=== PATIENT | female | born 1940 | race Caucasian/White ===

== ENCOUNTER 2018-05-21 14:36 | Emergency (ER) | payer OTHER ==
[2018-05-21 15:23] LABS: Urine Blood NEGATIVE (NEG); Urine Glucose NEGATIVE (NEG); Urine Protein NEGATIVE (NEG); Urine Specific Gravity 1.015 (1.005-1.030)
[2018-05-21] MEDS ORDERED: NA CHLORIDE 0.9% 500 ML ONE (15:38)
[2018-05-21 15:54] LABS: Absolute Lymphocytes (CBC) 0.8 K/uL (0.7-4.9); Absolute Monocytes 0.6 K/uL (0.1-1.3); Absolute Neutrophil 6.1 K/uL (1.8-8.0); Basophils % 0.4 % (0-1.3); Eosinophils % 0.9 % (0-4.4); MCV 85.1 fL (80-100); MPV 9.4 fL (7.6-11.3); Monocytes % 8.3 % (3.3-12.3); RBC Red Blood Cell Count 4.23 M/uL (3.86-4.86)
[2018-05-21 16:15] LABS: Albumin 4.2 g/dL (3.4-5.0); Bilirubin Direct 0.2 mg/dL (0-0.2); Bilirubin Total 0.4 mg/dL (0.2-1.0); Magnesium 2.2 mg/dL (1.8-2.4); Potassium 4.3 mmol/L (3.5-5.1); Protein, Total 7.5 g/dL (6.4-8.2)
--- NOTE | 2018-05-21 16:26 | EKG ---
Test Date: 2018-05-21 Test Time: 15:41:14 Stunner: JULIA MEASUREMENT RESULTS: Intervals: Rate: 65 MO: QRSD: 112 QT: 436 QTc: 453 [place]: P: MO: QRS: -8 T: 54 INTERPRETIVE STATEMENTS: Atrial fibrillation Anteroseptal infarct, age undetermined Abnormal ECG Compared to ECG 12/31/2016 14:19:22 Prolonged QT interval no longer present Myocardial infarct finding still present Electronically Signed On 05-21-18 16:25:44 CDT by Jackson Cuellar
--- NOTE | 2018-05-21 17:16 | RAD REPORT ---
EXAM DESCRIPTION: CT - Head Brain Wo Cont - 05/21/2018 5:04 pm CLINICAL HISTORY: DIZZINESS< COMPARISON: 2016 TECHNIQUE: Computed axial tomography of the head was obtained. IV contrast was not requested. All CT scans are performed using dose optimization technique as appropriate and may include automated exposure control or mA/KV adjustment according to patient size. FINDINGS: An intracranial bleed is not seen . The ventricles are normal in caliber. No extra-axial fluid collection is noted. Low-density areas within the right parietal and left frontal lobes may represent old infarctions. A 13 millimeter peripherally calcified right frontal scalp lesion is enlarged from the prior exam Fluid within the sinuses/ mastoids is not seen. IMPRESSION: 13 millimeter peripherally calcified right frontal lobe scalp lesion is enlarged from the prior exam No acute intracranial abnormality is seen. If patient's symptoms persist MRI of the brain would be r ecommended.
--- NOTE | 2018-05-21 17:22 | ER ---
Nurse's Notes [facility] Name: Lilian Avila Age: 77 yrs Sex: Female : 1940 Arrival Date: 05/21/2018 Time: 14:40 Bed 14 Private MD: Efra Dye F Diagnosis: Dehydration Presentation: 05/21 14:42 Presenting complaint: Patient states: Reports diarrhea every day for the past couple of aj1 months. States that her blood pressure has been low at home, but when she followed up with her doctor today it was better. Reports dizziness for the past 3 days. Denies pain. Transition of care: patient was not received from another setting of care. Onset of symptoms was May 18, 2018. Risk Assessment: Do you want to hurt yourself or someone else? Patient reports no desire to harm self or others. Initial Sepsis Screen: Does the patient meet any 2 criteria? No. Patient's initial sepsis screen is negative. Does the patient have a suspected source of infection? No. Patient's initial sepsis screen is negative. Care prior to arrival: None. 14:42 Method Of Arrival: Ambulatory aj1 14:42 Acuity: JARRETT 3 aj1 Triage Assessment: 14:48 General: Appears in no apparent distress. comfortable, Behavior is calm, cooperative, aj1 appropriate for age. Pain: Denies pain. Neuro: Level of Consciousness is awake, alert, obeys commands, Oriented to person, place, time, situation, Gait is steady, Speech is normal, Facial symmetry appears normal, Reports dizziness. Cardiovascular: Patient's skin is warm and dry. Respiratory: Airway is patent Respiratory effort is even, unlabored, Respiratory pattern is regular, symmetrical. GI: Reports diarrhea. Historical: - Allergies: 14:48 Codeine (Hallucinations/agitation); aj1 14:48 Morphine (Hallucinations/agitation); aj1 14:48 PENICILLINS (rash); aj1 - Home Meds: 14:48 amiodarone 200 mg Oral tab [Active]; atorvastatin 80 mg Oral tab [Active]; clopidogrel aj1 75 mg Oral tab 1 tab once daily [Active]; fluoxetine 20 mg Oral cap 1 cap [Active]; furosemide 40 mg Oral tab [Active]; gabapentin 300 mg Oral cap [Active]; Januvia 50 mg Oral tab [Active]; pantoprazole 40 mg Oral TbEC [Active]; primidone 50 mg Oral tab [Active]; spironolactone 50 mg Oral tab [Active]; Tylenol [Active]; - PMHx: 14:48 CHF; Hypertension; Diabetes - NIDDM; Myocardial infarction; aj1 - Immunization history:: Flu vaccine is up to date. - Social history:: Smoking status: Patient/guardian denies using tobacco. - Ebola Screening: : Patient denies travel to an Ebola-affected area in the 21 days before illness onset. Screenin:47 Abuse screen: Denies threats or abuse. Nutritional screening: No deficits noted. tw2 Tuberculosis screening: No symptoms or risk factors identified. Fall Risk None identified. Assessment: 14:53 General: Appears in no apparent distress. well groomed, Behavior is calm, cooperative, tw2 appropriate for age. Pain: Denies pain. Neuro: Level of Consciousness is awake, alert, obeys commands. Neuro: Oriented to person, place, time, situation. Cardiovascular: Denies chest pain, shortness of breath, Heart tones S1 S2 Patient's skin is warm and dry. Respiratory: Airway is patent Respiratory effort is even, unlabored, Respiratory pattern is regular, symmetrical, Breath sounds are clear bilaterally. GI: Abdomen is round non-distended, Bowel sounds present X 4 quads. Reports diarrhea. : No signs and/or symptoms were reported regarding the genitourinary system. EENT: No signs and/or symptoms were reported regarding the EENT system. Derm: No signs and/or symptoms reported regarding the dermatologic system. Skin is intact, is healthy with good turgor, Skin temperature is warm. Musculoskeletal: Range of motion: intact in all extremities. 15:45 Reassessment: Patient appears in no apparent distress at this time. No changes from tw2 previously documented assessment. Patient and/or family updated on plan of care and expected duration. Pain level reassessed. Patient is alert, oriented x 3, equal unlabored respirations, skin warm/dry/pink. 17:04 Reassessment: Patient appears in no apparent distress at this time. pt currently in CT. em 17:40 Reassessment: Patient appears in no apparent distress at this time. Patient and/or em family updated on plan of care and expected duration. Pain level reassessed. Patient is alert, oriented x 3, equal unlabored respirations, skin warm/dry/pink. Patient denies pain at this time. Patient states feeling better. Patient states symptoms have improved. Vital Signs: 14:48 BP 124 / 56; Pulse 72; Resp 20; Temp 98.0(O); Pulse Ox 97% on R/A; Weight 78.93 kg (R); aj1 Pain 0/10; 15:45 BP 100 / 48; Pulse 84; Resp 17; Pulse Ox 99% on R/A; tw2 16:18 BP 123 / 69 Supine; Pulse 77; Resp 17; Pulse Ox 99% on R/A; tw2 16:18 BP 109 / 61 Sitting; Pulse 68; tw2 16:18 BP 117 / 64 Standing; Pulse 99; tw2 17:15 BP 121 / 67; Pulse 71; Resp 16; Pulse Ox 99% on R/A; Pain 0/10; em 16:18 pt states "i just feel lightheaded when i stand", provider notified. tw2 ED Course: 14:40 Patient arrived in ED. sb2 14:40 Efra Dye MD is Private Physician. sb2 14:47 Triage completed. aj1 14:48 Arm band placed on. aj1 14:53 Bed in low position. Call light in reach. Side rails up X 1. Pulse ox on. NIBP on. tw2 14:57 Mishel Daley, AFUA is Primary Nurse. tw2 15:03 Arpan Esquivel PA is PHCP. jr8 15:03 Lee Briscoe MD is Attending Physician. jr8 15:44 Inserted saline lock: 20 gauge in right antecubital area, using aseptic technique. tw2 Blood collected. 16:03 EKG done, by word processor technician. reviewed by Arpan GEORGE. sm3 16:07 Report given to OBIE Lundy. tw2 17:[address] via wheelchair. nj 17:04 CT completed. Patient tolerated procedure well. Patient moved back from CT. nj 17:05 CT Head Brain wo Cont In Process Unspecified. EDMS 17:21 Efra Dey MD is Referral Physician. jr8 17:21 Justin Delgado MD is Referral Physician. jr8 17:48 No provider procedures requiring assistance completed. IV discontinued, intact, em bleeding controlled, No redness/swelling at site. Pressure dressing applied. Administered Medications: 15:44 Drug: NS 0.9% 500 ml Route: IV; Rate: bolus; Site: right antecubital; tw2 16:30 Follow up: IV Status: Completed infusion; IV Intake: 500ml em Intake: 16:30 IV: 500ml; Total: 500ml. em Outcome: 17:22 Discharge ordered by MD. steiner 17:48 Discharged to home ambulatory. em 17:48 Condition: good 17:48 Discharge instructions given to patient, Instructed on discharge instructions, follow up and referral plans. Demonstrated understanding of instructions, follow-up care. 17:50 Patient left the ED. em Signatures: Dispatcher [employer] Belen Bowen RN RN aj1 Kamron Barriga, COMPOSITION TILE LAYER COMPOSITION TILE LAYER em Arpan Esquivel PA PA jr8 Mishel Daley RN RN tw2 Harry Acevedo Sheri 2 Mariah Johns 3
--- NOTE | 2018-05-21 17:22 | EDPHYS ---
Physician Documentation [facility] Name: Lilian Avila Age: 77 yrs Sex: Female : 1940 Arrival Date: 05/21/2018 Time: 14:40 Bed 14 Private MD: Efra Dye F ED Physician Lee Briscoe HPI: 05/21 15:38 This 77 yrs old Female presents to ER via Ambulatory with complaints of jr8 Diarrhea. 15:38 Patient stated that she has been having diarrhea on/off for a couple of months. Stated jr8 that she had been in a hot house for the past few days while her AC was being worked on. Feels week and fatigued. Near syncope like feeling. Saw PCP today and referred her to ED for further evaluation . Severity of symptoms: At their worst the symptoms were moderate in the emergency department the symptoms are unchanged. The patient has not experienced similar symptoms in the past. The patient has been recently seen by a physician: the patient's primary care provider. Historical: - Allergies: 14:48 Codeine (Hallucinations/agitation); aj1 14:48 Morphine (Hallucinations/agitation); aj1 14:48 PENICILLINS (rash); aj1 - Home Meds: 14:48 amiodarone 200 mg Oral tab [Active]; atorvastatin 80 mg Oral tab [Active]; clopidogrel aj1 75 mg Oral tab 1 tab once daily [Active]; fluoxetine 20 mg Oral cap 1 cap [Active]; furosemide 40 mg Oral tab [Active]; gabapentin 300 mg Oral cap [Active]; Januvia 50 mg Oral tab [Active]; pantoprazole 40 mg Oral TbEC [Active]; primidone 50 mg Oral tab [Active]; spironolactone 50 mg Oral tab [Active]; Tylenol [Active]; - PMHx: 14:48 CHF; Hypertension; Diabetes - NIDDM; Myocardial infarction; aj1 - Immunization history:: Flu vaccine is up to date. - Social history:: Smoking status: Patient/guardian denies using tobacco. - Ebola Screening: : Patient denies travel to an Ebola-affected area in the 21 days before illness onset. ROS: 15:40 Eyes: Negative for injury, pain, redness, and discharge, ENT: Negative for injury, jr8 pain, and discharge, Neck: Negative for injury, pain, and swelling, Cardiovascular: Negative for chest pain, palpitations, and edema, Respiratory: Negative for shortness of breath, cough, wheezing, and pleuritic chest pain, Back: Negative for injury and pain, MS/Extremity: Negative for injury and deformity, Skin: Negative for injury, rash, and discoloration, Neuro: Negative for headache, weakness, numbness, tingling, and seizure. 15:40 Constitutional: Positive for fatigue, malaise. 15:40 Abdomen/GI: Positive for diarrhea, constipation, Negative for abdominal pain, nausea and vomiting, abdominal cramps, abdominal distension, anorexia, dysphagia, hematemesis, black/tarry stool, rectal pain, rectal bleeding, bowel incontinence, flatulence. Exam: 15:40 Eyes: Pupils equal round and reactive to light, extra-ocular motions intact. Lids and jr8 lashes normal. Conjunctiva and sclera are non-icteric and not injected. Cornea within normal limits. Periorbital areas with no swelling, redness, or edema. ENT: Nares patent. No nasal discharge, no septal abnormalities noted. Tympanic membranes are normal and external auditory canals are clear. Oropharynx with no redness, swelling, or masses, exudates, or evidence of obstruction, uvula midline. Mucous membranes moist. Neck: Trachea midline, no thyromegaly or masses palpated, and no cervical lymphadenopathy. Supple, full range of motion without nuchal rigidity, or vertebral point tenderness. No Meningismus. Cardiovascular: Regular rate and rhythm with a normal S1 and S2. No gallops, murmurs, or rubs. Normal PMI, no JVD. No pulse deficits. Respiratory: Lungs have equal breath sounds bilaterally, clear to auscultation and percussion. No rales, rhonchi or wheezes noted. No increased work of breathing, no retractions or nasal flaring. Abdomen/GI: Soft, non-tender, with normal bowel sounds. No distension or tympany. No guarding or rebound. No evidence of tenderness throughout. Back: No spinal tenderness. No costovertebral tenderness. Full range of motion. Skin: Warm, dry with normal turgor. Normal color with no rashes, no lesions, and no evidence of cellulitis. MS/ Extremity: Pulses equal, no cyanosis. Neurovascular intact. Full, normal range of motion. Neuro: Awake and alert, GCS 15, oriented to person, place, time, and situation. Cranial nerves II-XII grossly intact. Motor strength 5/5 in all extremities. Sensory grossly intact. Cerebellar exam normal. Normal gait. Vital Signs: 14:48 BP 124 / 56; Pulse 72; Resp 20; Temp 98.0(O); Pulse Ox 97% on R/A; Weight 78.93 kg (R); aj1 Pain 0/10; 15:45 BP 100 / 48; Pulse 84; Resp 17; Pulse Ox 99% on R/A; tw2 16:18 BP 123 / 69 Supine; Pulse 77; Resp 17; Pulse Ox 99% on R/A; tw2 16:18 BP 109 / 61 Sitting; Pulse 68; tw2 16:18 BP 117 / 64 Standing; Pulse 99; tw2 17:15 BP 121 / 67; Pulse 71; Resp 16; Pulse Ox 99% on R/A; Pain 0/10; em 16:18 pt states "i just feel lightheaded when i stand", provider notified. tw2 MDM: 15:06 Patient medically screened. [facility] 17:21 Data reviewed: vital signs, nurses notes, lab test result(s), EKG, radiologic studies, [facility] CT scan, plain films. Data interpreted: Pulse oximetry: on room air is 99 %. Interpretation: normal. 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 Response to treatment: the patient's symptoms have markedly improved after treatment. 05/21 15:12 Order name: Urine Dipstick--Ancillary (enter results); Complete Time: 15:35 05/21 15:23 Order name: Basic Metabolic Panel; Complete Time: 16:25 [facility] 05/21 15:23 Order name: CBC with Diff; Complete Time: 16:07 [facility] 05/21 15:23 Order name: Creatinine for Radiology; Complete Time: 16:12 [facility] 05/21 15:23 Order name: Hepatic Function; Complete Time: 16:25 [facility] 05/21 15:23 Order name: Magnesium; Complete Time: 16:25 05/21 15:23 Order name: IV Saline Lock; Complete Time: 15:44 05/21 15:23 Order name: Labs collected and sent; Complete Time: 15:44 05/21 15:23 Order name: Urine Dipstick-Ancillary (obtain specimen); Complete Time: 15:32 05/21 15:40 Order name: EKG - Nurse/Tech; Complete Time: 16:18 05/21 15:40 Order name: EKG; Complete Time: 15:40 05/21 15:41 Order name: Orthostatics; Complete Time: 16:18 05/21 16:46 Order name: CT Head Brain wo Cont; Complete Time: 17:20 Administered Medications: 15:44 Drug: NS 0.9% 500 ml Route: IV; Rate: bolus; Site: right antecubital; tw2 16:30 Follow up: IV Status: Completed infusion; IV Intake: 500ml em Disposition: 18:08 Co-signature as Attending Physician, Lee Briscoe MD. rn Disposition: 05/21/18 17:22 Discharged to Home. Impression: Dehydration. - Condition is Stable. - Discharge Instructions: Dehydration, Elderly. - Medication Reconciliation Form, Thank You Letter, Antibiotic Education, Prescription Opioid Use form. - Follow up: Efra Dye MD; When: 2 - 3 days; Reason: Recheck today's complaints, Continuance of care, Re-evaluation by your physician. Follow up: Justin Delgado MD; When: 2 - 3 days; Reason: Recheck today's complaints, Continuance of care, Re-evaluation by your physician. - Problem is new. - Symptoms have improved. Signatures: Dispatcher [employer] Belen Bowen RN RN aj1 Kamron Barriga, BASKET MACHINE OPERATOR BASKET MACHINE OPERATOR em Lee Briscoe MD MD rn Roszak, Josh, PA PA jr8 Mishel Daley RN RN tw2 Corrections: (The following items were deleted from the chart) 15:40 15:38 The patient has not recently seen a physician, obdulia jr8 17:50 17:22 05/21/2018 17:22 Discharged to Home. Impression: Dehydration. Condition is em Stable. Forms are Medication Reconciliation Form, Thank You Letter, Antibiotic Education, Prescription Opioid Use. Follow up: Efra Dye; When: 2 - 3 days; Reason: Recheck today's complaints, Continuance of care, Re-evaluation by your physician. Follow up: Justin Delgado; When: 2 - 3 days; Reason: Recheck today's complaints, Continuance of care, Re-evaluation by your physician. Problem is new. Symptoms have improved. jr8
[2018-05-21 17:54] VITALS: TEMP 98
[2018-05-21 17:55] VITALS: O2SAT 99
[2018-05-21 17:56] VITALS: BP 117/64
== END 2018-05-21 17:50 | disposition home or self-care (01) ==
LOC: ER 14:36
DX: E86.0 Dehydration (principal); I10 Essential (primary) hypertension; E11.9 Type 2 diabetes mellitus without complications; I50.9 Heart failure, unspecified; I25.2 Old myocardial infarction; Z88.0 Allergy status to penicillin; Z88.5 Allergy status to narcotic agent
CPT/HCPCS: 36415; 70450; 80048; 80076; 81003; 83735; 85025; 93005; 96360; 99284

== ENCOUNTER 2019-06-14 14:10 | Emergency (ER) | payer OTHER ==
--- OUTSIDE RECORDS SUMMARY | 2019-06-14 14:15 | XMS REPORT | Clinical Summary ---
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 Last Filed Vital Signs Not on file Plan of Treatment Health Maintenance Due Date Last Done Comments SHINGLES VACCINES (#1) 1988 65+ PNEUMOCOCCAL VACCINE (1 of 2 - PCV13) 2003 INFLUENZA VACCINE 04/22/2019 Procedures Procedure Name Priority Date/Time Associated Diagnosis Comments ECHOCARDIOGRAM 2D Routine 07/09/2018 12:06 Atrial fibrillation, Results for this COMPLETE W MMODE PM CDT unspecified type procedure are in SPECTRAL COLOR DOPPLER (HCC) the results (02349) Aortic valve section. 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 Stat.:OutpatientStudy Status:Final Echo Event ID:[id number] Order ID:[id number] Reason for Study:Aortic valve replacement History / Clinical:Coronary Artery Disease, Diabetes, Hypertension, Valvular Heart Disease; Aortic Stenosis Procedures:2D Echo, Colorflow Doppler Race:White SUMMARY: Surgical Prosthetic AV Doppler velocity index is 0.33 (normal>0.25). FINDINGS: LV: LV size is mildly enlarged. There is mild eccentric LV hypertrophy.LV EF is lower limits of normal. Estimated EF is50-54%. RV: RV size is normal. RV systolic function is normal. LA: LA volume is mildly enlarged. RA: RA size is normal. AO: Aortic root diameter is normal. CORTEZ: No pericardial effusion. AV: Prosthetic aortic valve. A trace of aortic regurgitation. Normalprosthetic valve velocity and gradient. Surgical ProstheticAV Doppler velocity index is 0.33 (normal> 0.25). MV: Mild thickening and calcification of mitral leaflets. Mild mitralregurgitation. PV: No structural PV abnormalities noted. A trace of pulmonic regurgitation. TV: No structural TV abnormalities noted. A trace of tricuspid regurgitation Brothers: LV relaxation is impaired. LV filling pressure is elevated. Other:Estimated PA systolic pressure is 30-35 mmHg, assuming a meanRAP of 5 mmHg. MEASUREMENTS: 2D Parasternal [place] LVOT 1.5 cmLA Ds 4.3 cm LVIDd5.8 cmIndex 3 cm/m Ao An1.4 cm LVIDs3.8 cmAo Rtd 2.5 cm Index1.3 cm/m LV%fs 34.4 % LV Mass 233.1 g(87-129) IVSd 1.2 cmLVM Index 122 g/m2 LVPWd0.8 cmRWT 0.3 LA Sng Plane LA Area 22.8 cm2(8.8-23.4) LA Vol68.2 ml Index35.7 ml/m LA LngAx 6.4 cm DOPPLER AV For Flow/Valve Assess AV pkVel 311.5 cm/s (100-170) AV ET340 msec AV mnVel 200.1 cm/Michael AC/ET 0.3 AV pkPG 38.8 mmHgAV TVI 68.1 cm AV Mean G 20.5 mmHgAVpkAcRt 5199.4 cm/s2 AV AC111 msec (83-118) WALL MOTION: RESTING WALL MOTION: Basal Inferoseptal, Basal Inferior, Basal Inferolateral, Basal Anterolateral zuniga are hypokinetic.Mid Inferoseptal, Mid Anterolateral zuniga are mildly hypokinetic. Normal in all other zuniga. Wall Index=1.3 Signed 07/10/2018 08:59 AM Alanna Negro M.D. Procedure Note Interface, Radiology Results In - 07/10/2018 9:00 AM CDT Echocardiography Report [address] [address], [place] [address] Pat.Name: NASIR AVILA.ID: [id number] .Date: 07/09/2018 Refer.MD: KEO LEUNG MD Exam Time: 11:42:00 AM Study Type:Routine Echo Height: 67in Weight: 174lb BSA: 1.91 m2 Age: 1 1940,77Y Sex: FEMALE BP: 126/65 HR: 71 bpm Sonogrphr: FARHAD Peraza Pat. Stat.:Outpatient Study Status:Final Echo Event ID:[id number] Order ID: [id number] Reason for Study:Aortic valve replacement History / Clinical:Coronary Artery Disease, Diabetes, Hypertension, Valvular Heart Disease; Aortic Stenosis Procedures:2D Echo, Colorflow Doppler Race: White SUMMARY: Surgical Prosthetic AV Doppler velocity index is 0.33 (normal>0.25). FINDINGS: LV: LV size is mildly enlarged. There is mild eccentric LV hypertrophy. LV EF is lower limits of normal. Estimated EF is 50-54%. RV: RV size is normal. RV systolic function is normal. LA: LA volume is mildly enlarged. RA: RA size is normal. AO: Aortic root diameter is normal. CORTEZ: No pericardial effusion. AV: Prosthetic aortic valve. A trace of aortic regurgitation. Normal prosthetic valve velocity and gradient. Surgical Prosthetic AV Doppler velocity index is 0.33 (normal>0.25). MV: Mild thickening and calcification of mitral leaflets. Mild mitral regurgitation. PV: No structural PV abnormalities noted. A trace of pulmonic regurgitation. TV: No structural TV abnormalities noted. A trace of tricuspid regurgitation Brothers: LV relaxation is impaired. LV filling pressure is elevated. Other: Estimated PA systolic pressure is 30-35 mmHg, assuming a mean RAP of 5 mmHg. MEASUREMENTS: 2D Parasternal [place] LVOT 1.5 cm LA Ds 4.3 cm LVIDd 5.8 cm Index 3 cm/m Ao An 1.4 cm LVIDs 3.8 cm Ao Rtd 2.5 cm Index 1.3 cm/m LV%fs 34.4 % LV Mass 233.1 g (87-129) IVSd 1.2 cm LVM Index 122 g/m2 LVPWd 0.8 cm RWT 0.3 LA Sng Plane LA Area 22.8 cm2 (8.8-23.4) LA Vol 68.2 ml Index 35.7 ml/m LA LngAx 6.4 cm DOPPLER AV For Flow/Valve Assess AV pkVel 311.5 cm/s (100-170) AV ET 340 msec AV mnVel 200.1 cm/s AV AC/ET 0.3 AV pkPG 38.8 mmHg AV TVI 68.1 cm AV Mean G 20.5 mmHg AVpkAcRt 5199.4 cm/s2 AV AC 111 msec (83-118) WALL MOTION: RESTING WALL MOTION: Basal Inferoseptal, Basal Inferior, Basal Inferolateral, Basal Anterolateral zuniga are hypokinetic. Mid Inferoseptal, Mid Anterolateral zuniga are mildly hypokinetic. Normal in all other zuniga. Wall Index=1.3 Signed 07/10/2018 08:59 AM Alanna Negro M.D. Performing Organization Address City[facility] Phone Number [facility] [address] [place] [address] after 06/13/2018 Insurance Payer Benefit Plan / Subscriber ID Effective Dates Phone Address Type Group HUMANA MEDICARE HUMANA MEDICARE xxxxxxxxx 2017-Present PPO PPO/PFFS/ERS [facility] Advance Directives For more information, please contact: [phone] Type Date Recorded Patient Regional Engagement Consultant Explanation Advance Directives, Living Will 03/24/2014 1:39 PM and Medical Power of Electric Switch Tester
[2019-06-14] MEDS ORDERED: NA CHLORIDE 0.9% 500 ML ONE (14:57)
[2019-06-14 15:05] LABS: Absolute Lymphocytes (CBC) 0.9 K/uL (0.7-4.9); Basophils % 0.7 % (0-1.3); Hematocrit 35.5 % (36.0-45.0); Lymphocytes % 11.8 % (15.3-44.8); MPV 9.2 fL (7.6-11.3); Protime INR 1.59; RBC Red Blood Cell Count 4.12 M/uL (3.86-4.86)
--- NOTE | 2019-06-14 15:11 | RAD REPORT ---
EXAM DESCRIPTION: Samir Single View06/14/2019 3:00 pm CLINICAL HISTORY: sob COMPARISON: 2018 FINDINGS: The lungs appear clear of acute infiltrate. The heart is moderately enlarged. Postsurgical changes involve the chest. Battery and lead overlie the left chest IMPRESSION: No acute abnormalities displayed
[2019-06-14 15:25] LABS: Albumin 3.4 g/dL (3.4-5.0); Bilirubin Direct 0.1 mg/dL (0-0.2); Bilirubin Total 0.3 mg/dL (0.2-1.0); Potassium 4.6 mmol/L (3.5-5.1); Troponin (Emerg Dept Use Only) 0.08 ng/mL (0.0-0.045)
[2019-06-14] MEDS ORDERED: METOPROLOL TARTRATE 5 MG/5 ML INJ IV ONE (15:32)
--- NOTE | 2019-06-14 15:42 | EKG ---
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
[2019-06-14] MEDS ORDERED: ONDANSETRON 4 MG/2 ML VIAL ONE ×2 (15:55→17:35)
[2019-06-14] MEDS ORDERED: NA CHLORIDE 0.9% 1,000 ML ONE (16:54)
--- NOTE | 2019-06-14 18:28 | ER ---
Nurse's Notes [facility] Name: Lilian Avila Age: 78 yrs Sex: Female : 1940 Arrival Date: 06/14/2019 Time: 14:14 Bed 4 Private MD: Efra Dye F Diagnosis: Atrial fibrillation and flutter;Abnormal serum enzyme levels;Heart failure Presentation: 06/14 14:21 Presenting complaint: Patient states: SENT FROM DR MESSER FOR SOB AND ARRYTHMIA. bp Transition of care: patient was not received from another setting of care. Onset of symptoms is unknown. Risk Assessment: Do you want to hurt yourself or someone else? Patient reports no desire to harm self or others. Initial Sepsis Screen: Does the patient meet any 2 criteria? No. Patient's initial sepsis screen is negative. Does the patient have a suspected source of infection? No. Patient's initial sepsis screen is negative. Care prior to arrival: None. 14:21 Method Of Arrival: Ambulatory bp 14:21 Acuity: JARRETT 2 bp Historical: - Allergies: 14:26 Codeine (Hallucinations/agitation); bp 14:26 Morphine (Hallucinations/agitation); bp 14:26 PENICILLINS (rash); bp - Home Meds: 14:26 amiodarone 200 mg Oral tab [Active]; atorvastatin 80 mg Oral tab [Active]; clopidogrel bp 75 mg Oral tab 1 tab once daily [Active]; fluoxetine 20 mg Oral cap 1 cap [Active]; furosemide 40 mg Oral tab [Active]; gabapentin 300 mg Oral cap [Active]; Januvia 50 mg Oral tab [Active]; pantoprazole 40 mg Oral TbEC [Active]; primidone 50 mg Oral tab [Active]; spironolactone 50 mg Oral tab [Active]; - PMHx: 14:26 CHF; Diabetes - NIDDM; Hypertension; Myocardial infarction; bp - PSHx: 14:26 CABG; bp - Immunization history:: Adult Immunizations up to date. - Social history:: Smoking status: Patient/guardian denies using tobacco. - Ebola Screening: : No symptoms or risks identified at this time. Screenin:47 Abuse screen: Denies threats or abuse. Denies injuries from another. Nutritional sg screening: No deficits noted. Tuberculosis screening: No symptoms or risk factors identified. Never had TB. Fall Risk None identified. Assessment: 14:40 General: Appears in no apparent distress. well groomed, well developed, well nourished, sg Behavior is calm, cooperative, appropriate for age. Pain: Denies pain. Neuro: Level of Consciousness is awake, alert, obeys commands, Oriented to person, place, time, [place] are equal bilaterally Moves all extremities. Speech is normal, Facial symmetry appears normal. Cardiovascular: Patient's skin is warm and dry. Chest pain is denied. Respiratory: Airway is patent Respiratory effort is even, unlabored, Respiratory pattern is regular, symmetrical. GI: Abdomen is round non-distended, Reports tolerance of fluids, tolerance of food. : No signs and/or symptoms were reported regarding the genitourinary system. EENT: No signs and/or symptoms were reported regarding the EENT system. Derm: Skin is pink, warm \T\ dry. Musculoskeletal: Circulation, motion, and sensation intact. Range of motion: intact in all extremities, Swelling absent. 14:47 Reassessment: Patient appears in no apparent distress at this time. Patient and/or sg family updated on plan of care and expected duration. Pain level reassessed. Patient is alert, oriented x 3, equal unlabored respirations, skin warm/dry/pink. 15:41 Reassessment: Patient appears in no apparent distress at this time. Patient and/or sg family updated on plan of care and expected duration. Pain level reassessed. Patient is alert, oriented x 3, equal unlabored respirations, skin warm/dry/pink. Patient denies pain at this time. 16:30 Reassessment: Patient appears in no apparent distress at this time. Patient and/or sg family updated on plan of care and expected duration. Pain level reassessed. Patient is alert, oriented x 3, equal unlabored respirations, skin warm/dry/pink. Patient denies pain at this time. 17:30 Reassessment: Patient appears in no apparent distress at this time. Patient and/or sg family updated on plan of care and expected duration. Pain level reassessed. Patient is alert, oriented x 3, equal unlabored respirations, skin warm/dry/pink. pt family at bedside at this time, awaiting new orders will continue to monitor Patient denies pain at this time. 18:30 Reassessment: Patient appears in no apparent distress at this time. Patient and/or sg family updated on plan of care and expected duration. Pain level reassessed. Patient is alert, oriented x 3, equal unlabored respirations, skin warm/dry/pink. pt updated report has been called awaiting pt transport to receiving facility at this time, pt stated understanding. 18:42 Reassessment: Patient appears in no apparent distress at this time. verbal order from sg to please cancel the VQ scan as this pt is being transferred, witness by Dayana CAAL. Vital Signs: 14:24 BP 114 / 80; Pulse 136; Resp 24; Weight 83.01 kg; bp 15:05 BP 115 / 89; Pulse 135 MON; Resp 17; Pulse Ox 100% on R/A; sg 15:44 BP 117 / 90; Pulse 130; Resp 17; Temp 97.2; Pulse Ox 97% on R/A; sg 16:08 BP 108 / 82; Pulse 130 MON; Resp 21 S; Pulse Ox 98% on R/A; sg 17:00 BP 105 / 77; Pulse 130; Resp 20 S; Pulse Ox 97% on R/A; sg 17:20 BP 107 / 78; Pulse 128 MON; Resp 17 S; Pulse Ox 96% on R/A; hb 18:00 BP 110 / 82; Pulse 131 MON; Resp 16; Pulse Ox 98% on R/A; sg 18:30 BP 107 / 88; Pulse 131; Resp 17; Pulse Ox 98% on R/A; sg ED Course: 14:14 Patient arrived in ED. mr 14:15 Efra Dye MD is Private Physician. mr 14:22 Triage completed. bp 14:25 Arm band placed on. bp 14:27 Jed Alaniz MD is Attending Physician. gs 14:40 Initial lab(s) drawn, by nm, sent to lab. Inserted saline lock: 20 gauge in right sg forearm, using aseptic technique. Blood collected. 14:45 Patient has correct armband on for positive identification. Bed in low position. Call sg light in reach. Side rails up X2. hall monitor on. Pulse ox on. NIBP on. Warm blanket given. Head of bed elevated. 14:48 Juan M Morfin, RN is Primary Nurse. sg 14:58 XRAY Chest (1 view) In Process Unspecified. EDMS 19:00 No provider procedures requiring assistance completed. Patient transferred, IV remains sg in place. intact, No redness/swelling at site. Administered Medications: 15:01 Drug: NS 0.9% 500 ml Route: IV; Rate: bolus; Site: right forearm; sg 16:00 Follow up: Response: No adverse reaction; IV Status: Completed infusion; IV Intake: sg 500ml 15:38 Drug: Lopressor 2.5 mg Route: IVP; Site: right forearm; sg 16:00 Follow up: Response: No adverse reaction; No change in condition sg 16:00 Drug: Zofran 4 mg Route: IVP; Site: right forearm; sg 17:00 Follow up: Response: No adverse reaction; Nausea is decreased sg 16:00 Drug: Lopressor 2.5 mg Route: IVP; Site: right forearm; sg 17:00 Follow up: Response: No adverse reaction; No change in condition sg 17:00 Drug: NS 0.9% 500 ml Route: IV; Rate: bolus; Site: right forearm; sg 17:50 Follow up: Response: No adverse reaction; IV Status: Completed infusion; IV Intake: sg 500ml 18:40 Drug: Aspirin Chewable Tablet 324 mg Route: PO; sg 19:00 Follow up: Response: No adverse reaction sg 18:40 Drug: Lovenox 80 mg Route: Sub-Q; Site: right lower abdomen; sg 19:00 Follow up: Response: No adverse reaction sg Intake: 16:00 IV: 500ml; Total: 500ml. sg 17:50 IV: 500ml; Total: 1000ml. Outcome: 18:21 Transferred by ground EMS to [facility], Transfer form completed. [facility] 18:21 Condition: stable 18:21 Instructed on the need for transfer, safety practices, Demonstrated understanding of instructions, follow-up care. 18:22 Condition: report given to AFUA ROCHE for rakesh, awaiting VQ scan prior to transport to [facility] Rakesh, AFUA ROCHE states understanding 18:27 ER care complete, transfer ordered by . 20:54 Patient left the ED. ak1 Signatures: Dispatcher [employer] EDMS Juan M Morfin RN RN sg Duyen PhilippevishmarlonIsabel RN RN ak1 Dayana Jay RN RN Agusto Andrews RN RN [facility] Jed Alaniz MD MD gs Peltier, Brian, RN RN bp Corrections: (The following items were deleted from the chart) 18:32 17:20 BP 170 / 78; Pulse 128bpm; MonitorResp 17bpm; Spontaneous; Pulse Ox 96% RA; sg hb
--- NOTE | 2019-06-14 18:29 | EDPHYS ---
Physician Documentation [facility] Name: Lilian Avila Age: 78 yrs Sex: Female : 1940 Arrival Date: 06/14/2019 Time: 14:14 Bed 4 Private MD: Efra Dye F ED Physician Jed Alaniz HPI: 06/14 17:37 This 78 yrs old Female presents to ER via Ambulatory with complaints of gs Irregular heartbeat. 17:37 The patient or guardian reports chest pain that is located primarily in the anterior gs chest wall. Onset: this morning. The pain does not radiate. Associated signs and symptoms: Pertinent positives: shortness of breath. The chest pain is described as a heaviness. Duration: The patient or guardian reports multiple episodes, that are intermittent, that wax and wane. Modifying factors: The symptoms are alleviated by nothing. the symptoms are aggravated by nothing. Severity of pain: At its worst the pain was moderate in the emergency department the pain has resolved. The patient has experienced similar episodes in the past, a few times. Historical: - Allergies: 14:26 Codeine (Hallucinations/agitation); bp 14:26 Morphine (Hallucinations/agitation); bp 14:26 PENICILLINS (rash); bp - Home Meds: 14:26 amiodarone 200 mg Oral tab [Active]; atorvastatin 80 mg Oral tab [Active]; clopidogrel bp 75 mg Oral tab 1 tab once daily [Active]; fluoxetine 20 mg Oral cap 1 cap [Active]; furosemide 40 mg Oral tab [Active]; gabapentin 300 mg Oral cap [Active]; Januvia 50 mg Oral tab [Active]; pantoprazole 40 mg Oral TbEC [Active]; primidone 50 mg Oral tab [Active]; spironolactone 50 mg Oral tab [Active]; - PMHx: 14:26 CHF; Diabetes - NIDDM; Hypertension; Myocardial infarction; bp - PSHx: 14:26 CABG; bp - Immunization history:: Adult Immunizations up to date. - Social history:: Smoking status: Patient/guardian denies using tobacco. - Ebola Screening: : No symptoms or risks identified at this time. ROS: 18:23 All other systems are negative. gs Exam: 18:23 Head/Face: Normocephalic, atraumatic. Eyes: Pupils equal round and reactive to light, gs extra-ocular motions intact. Lids and lashes normal. Conjunctiva and sclera are non-icteric and not injected. Cornea within normal limits. Periorbital areas with no swelling, redness, or edema. ENT: Nares patent. No nasal discharge, no septal abnormalities noted. Tympanic membranes are normal and external auditory canals are clear. Oropharynx with no redness, swelling, or masses, exudates, or evidence of obstruction, uvula midline. Mucous membranes moist. Neck: Trachea midline, no thyromegaly or masses palpated, and no cervical lymphadenopathy. Supple, full range of motion without nuchal rigidity, or vertebral point tenderness. No Meningismus. Chest/axilla: Normal chest wall appearance and motion. Nontender with no deformity. No lesions are appreciated. 18:23 Abdomen/GI: Soft, non-tender, with normal bowel sounds. No distension or tympany. No guarding or rebound. No evidence of tenderness throughout. Back: No spinal tenderness. No costovertebral tenderness. Full range of motion. Skin: Warm, dry with normal turgor. Normal color with no rashes, no lesions, and no evidence of cellulitis. MS/ Extremity: Pulses equal, no cyanosis. Neurovascular intact. Full, normal range of motion. Neuro: Awake and alert, GCS 15, oriented to person, place, time, and situation. Cranial nerves II-XII grossly intact. Motor strength 5/5 in all extremities. Sensory grossly intact. Cerebellar exam normal. Normal gait. 18:23 Constitutional: The patient appears alert, awake. 18:23 Cardiovascular: Rate: tachycardic, Rhythm: regular, Pulses: no pulse deficits are appreciated. 18:23 ECG was reviewed by the Attending Physician. 18:23 Respiratory: the patient does not display signs of respiratory distress, Respirations: tachypnea, that is mild, Breath sounds: are clear throughout. Vital Signs: 14:24 BP 114 / 80; Pulse 136; Resp 24; Weight 83.01 kg; bp 15:05 BP 115 / 89; Pulse 135 MON; Resp 17; Pulse Ox 100% on R/A; sg 15:44 BP 117 / 90; Pulse 130; Resp 17; Temp 97.2; Pulse Ox 97% on R/A; sg 16:08 BP 108 / 82; Pulse 130 MON; Resp 21 S; Pulse Ox 98% on R/A; sg 17:00 BP 105 / 77; Pulse 130; Resp 20 S; Pulse Ox 97% on R/A; sg 17:20 BP 107 / 78; Pulse 128 MON; Resp 17 S; Pulse Ox 96% on R/A; hb 18:00 BP 110 / 82; Pulse 131 MON; Resp 16; Pulse Ox 98% on R/A; sg 18:30 BP 107 / 88; Pulse 131; Resp 17; Pulse Ox 98% on R/A; sg MDM: 14:37 Patient medically screened. gs 18:23 Differential diagnosis: acute myocardial infarction, coronary artery disease chest wall gs pain, congestive heart failure pulmonary embolus, afib,flutter dr gutierrez will take in transfer. 06/14 14:39 Order name: Basic Metabolic Panel; Complete Time: 15:54 gs 06/14 14:39 Order name: CBC with Diff; Complete Time: 15:18 gs 06/14 14:39 Order name: LFT's; Complete Time: 15:54 06/14 14:39 Order name: Magnesium; Complete Time: 15:54 06/14 14:39 Order name: NT PRO-BNP; Complete Time: 15:54 06/14 14:39 Order name: PT-INR; Complete Time: 15:18 06/14 14:39 Order name: Troponin (emerg Dept Use Only); Complete Time: 15:54 06/14 14:39 Order name: XRAY Chest (1 view); Complete Time: 15:23 06/14 15:19 Order name: TSH; Complete Time: 17:39 06/14 15:23 Order name: D-Dimer; Complete Time: 17:39 06/14 17:45 Order name: Glucose, Ancillary Testing; Complete Time: 18:09 EDMS 06/14 14:39 Order name: EKG; Complete Time: 14:41 06/14 14:39 Order name: Cardiac monitoring; Complete Time: 14:48 06/14 14:39 Order name: EKG - Nurse/Tech; Complete Time: 14:48 06/14 14:39 Order name: IV Saline Lock; Complete Time: 14:48 06/14 14:39 Order name: Labs collected and sent; Complete Time: 14:48 06/14 14:39 Order name: O2 Per Protocol; Complete Time: 14:48 gs 06/14 14:39 Order name: O2 Sat Monitoring; Complete Time: 14:48 EC:23 Rate is 136 beats/min. Rhythm is regular. Q waves are Old in leads V1, V2, V3. Clinical gs impression: Abnormal EKG without significant change. Interpreted by me. Administered Medications: 15:01 Drug: NS 0.9% 500 ml Route: IV; Rate: bolus; Site: right forearm; sg 16:00 Follow up: Response: No adverse reaction; IV Status: Completed infusion; IV Intake: sg 500ml 15:38 Drug: Lopressor 2.5 mg Route: IVP; Site: right forearm; sg 16:00 Follow up: Response: No adverse reaction; No change in condition sg 16:00 Drug: Zofran 4 mg Route: IVP; Site: right forearm; sg 17:00 Follow up: Response: No adverse reaction; Nausea is decreased sg 16:00 Drug: Lopressor 2.5 mg Route: IVP; Site: right forearm; sg 17:00 Follow up: Response: No adverse reaction; No change in condition sg 17:00 Drug: NS 0.9% 500 ml Route: IV; Rate: bolus; Site: right forearm; sg 17:50 Follow up: Response: No adverse reaction; IV Status: Completed infusion; IV Intake: sg 500ml 18:40 Drug: Aspirin Chewable Tablet 324 mg Route: PO; sg 19:00 Follow up: Response: No adverse reaction sg 18:40 Drug: Lovenox 80 mg Route: Sub-Q; Site: right lower abdomen; sg 19:00 Follow up: Response: No adverse reaction sg Disposition: 18:23 Critical Care:. gs Disposition: 06/14/19 18:27 Transfer ordered to [facility]. Diagnosis are Atrial fibrillation and flutter, Abnormal serum enzyme levels, Heart failure. - Reason for transfer: Higher level of care. - Accepting physician is cat gutierrez. - Condition is Stable. - Problem is new. - Symptoms have improved. Critical care time excluding procedures: 18:23 Critical care time: Bedside Care: 10 minutes, Consultation: 10 minutes, Family gs Intervention: 10 minutes. Total time: 30 minutes Signatures: Dispatcher [employer] Juan M Madrigal RN RN Isabel Mireles RN RN ak1 Jed Alaniz MD MD gs Vincenzo Solis RN RN bp Corrections: (The following items were deleted from the chart) 20:54 18:27 06/14/2019 18:27 Transfer ordered to [facility]. Diagnosis is ak1 Atrial fibrillation and flutter; Abnormal serum enzyme levels; Heart failure. Reason for transfer: Higher level of care. Accepting physician is cat gutierrez. Condition is Stable. Problem is new. Symptoms have improved. gs
[2019-06-14] MEDS ORDERED: ASPIRIN 81 MG CHEWABLE TABLET ONE (18:36)
[2019-06-14] MEDS ORDERED: ENOXAPARIN 80 MG/0.8 ML SQ ONE (18:36)
[2019-06-14 21:41] VITALS: TEMP 97.2
[2019-06-14 21:47] VITALS: O2SAT 98
[2019-06-14 21:48] VITALS: BP 107/88
== END 2019-06-14 20:54 | disposition short-term general hospital (02) ==
LOC: ER 14:10
DX: I50.9 Heart failure, unspecified (principal); I48.91 Unspecified atrial fibrillation; I48.92 Unspecified atrial flutter; R79.89 Other specified abnormal findings of blood chemistry; I10 Essential (primary) hypertension; E11.9 Type 2 diabetes mellitus without complications; Z88.0 Allergy status to penicillin; Z88.5 Allergy status to narcotic agent; Z95.1 Presence of aortocoronary bypass graft
CPT/HCPCS: 93005; 85025; 80048; 36415; 83735; 85610; 82962; 85379; 80076; 84443; 84484; 83880; 71045; 96375; 96372; 96374; 99285; J1650; J7030; J2405 ×2

== ENCOUNTER 2020-02-28 10:59 | Emergency (ER) | payer OTHER ==
[2020-02-28] MEDS ORDERED: MORPHINE 4 MG/ML SYR ONE (12:18)
[2020-02-28] MEDS ORDERED: ONDANSETRON 4 MG/2 ML VIAL ONE (12:19)
[2020-02-28 13:27] LABS: Basophils % 0.5 % (0-1.3); Hematocrit 41.9 % (36.0-45.0); Lymphocytes % 10.7 % (15.3-44.8); MPV 10.1 fL (7.6-11.3)
[2020-02-28 13:28] LABS: Protime INR 1.21
[2020-02-28 13:54] LABS: ALT/SGPT 20 U/L (12-78); AST/SGOT 22 U/L (15-37); Albumin 4.3 g/dL (3.4-5.0); Alkaline Phosphatase 53 U/L (45-117); BUN Blood Urea Nitrogen 67 mg/dL (7-18); Bicarbonate 25 mmol/L (21-32); Bilirubin Direct 0.2 mg/dL (0-0.2); Bilirubin Total 0.5 mg/dL (0.2-1.0); Glucose Level 268 mg/dL (74-106); Magnesium 2.5 mg/dL (1.8-2.4); NT PRO-BNP 8837 pg/mL (<450); Potassium 4.5 mmol/L (3.5-5.1); Protein, Total 8.3 g/dL (6.4-8.2); Sodium Level 134 mmol/L (136-145); Troponin (Emerg Dept Use Only) < 0.02 ng/mL (0.0-0.045)
--- OUTSIDE RECORDS SUMMARY | 2020-02-28 14:46 | XMS REPORT | Clinical Summary ---
:1940 Author Organization [facility] Address [address] [place] [address] Care Team Providers Name Role Phone Asked, No Pcp Primary Care Provider Unavailable Allergies Active Allergy Reactions Severity Noted Date Comments Codeine Hallucinations High Morphine Hallucinations High Pt had it whe n son was born. Penicillin G Rash High Long time ago, pt can't remember. Medications Medication Sig Dispensed Refills Start Date End Date Status insulin GLARGINE Inject 55 0 Act judi (LANTUS) 100 Units under unit/mL injection the skin (vial) daily. FLUoxetine (PROzac) Take 20 mg by 0 Active 20 MG capsule mouth daily. clopidogrel Take 75 mg by 0 Acti ve (PLAVIX) 75 mg mouth daily. tablet apixaban (ELIQUIS) Take 2.5 mg 0 Active 2.5 mg tablet by mouth 2 (two) times a day. primidone Take 50 mg by 0 Active (MYSOLINE) 50 MG mouth tablet nightly. atorvastatin Take 80 mg by 0 Act judi (LIPITOR) 80 MG mouth tablet nightly. fenofibrate Take 134 mg 0 Active (LOFIBRA) 54 MG by mouth tablet daily. SITagliptin Take 50 mg by 0 06/24/20 Disc ontinued (JANUVIA) 50 MG mouth daily. 19 ( Stop Taking at tablet Discharge) furosemide (LASIX) Take 40 mg by 0 0 Discontinued 40 mg tablet mouth 2 (two) 19 (St op Taking at times a day. Dischar ge) spironolactone Take 50 mg by 0 06/24/20 D iscontinued (ALDACTONE) 50 MG mouth daily. 19 (Stop Taking at tablet Discharge) INSULIN Inject under 0 06/24/20 Discont inued SUBCUTANEOUS PUMP, the skin 19 ( Stop Taking at HUMULIN R, 100 continuously. D ischarge) UNIT/ML INSULIN PUMP INFUSION (HumuLIN,NovoLIN) calcitriol Take 1 30 capsule 0 06/25/2019 07/25/20 (ROCALTROL) 0.25 capsule (0.25 19 MCG capsule mcg total) by mouth daily for 30 days. calcium carbonate Chew 2 60 tablet 0 06/25/2019 07/25/20 E xpired (TUMS) 200 mg tablets 19 calcium (500 mg) (1,000 mg chewable tablet total) daily for 30 days. carvedilol (COREG) Take 1 tablet 60 tablet 2 06/24/2019 6.25 MG tablet (6.25 mg 19 total) by mouth 2 (two) times a day for 30 days. hydrALAZINE Take 1 tablet 90 tablet 3 06/24/2019 07/24/20 Exp ired (APRESOLINE) 100 MG (100 mg 19 tablet total) by mouth every 8 (eight) hours for 30 days. insulin lispro Inject 5 10 mL 12 06/24/2019 07/24/20 Expi red (HumaLOG) 100 Units under 19 unit/mL injection the skin 3 (three) times a day with meals for 30 days. isosorbide Take 1 tablet 90 tablet 3 06/24/2019 07/24/20 Expi red dinitrate (ISORDIL) (20 mg total) 19 20 MG tablet by mouth 3 (three) times a day for 30 days. loperamide Take 1 60 capsule 0 06/24/2019 07/24/20 (IMODIUM) 2 mg capsule (2 mg 19 capsule total) by mouth 4 (four) times a day as needed for diarrhea for up to 30 days. pantoprazole Take 1 tablet 30 tablet 2 06/25/2019 07/25/20 Ex pired (PROTONIX) 40 MG EC (40 mg total) 19 tablet by mouth daily for 30 days. sodium chloride 2 sprays into 15 mL 12 06/24/2019 07/24/20 (OCEAN) 0.65 % each nostril 19 nasal spray as needed for rhinitis for up to 30 days. torsemide (DEMADEX) Take 3 180 tablet 2 06/24/2019 07/24/20 10 MG tablet tablets (30 19 mg total) by mouth 2 (two) times a day for 30 days. Active Problems Problem Noted Date Cardiogenic shock 06/21/2019 Atrial fibrillation 06/15/2019 Essential hypertension 06/15/2019 Type 2 diabetes mellitus 06/15/2019 Encounters Date Type Specialty Care Team Description 06/14/2019 - Hospital Encounter [facility]iology [facility] Cardi ogenic shock (HCC) (Primary Dx); 06/24/2019 O. Sr.MD Atrial fibrilla tion, unspecified type (HCC); Paroxysmal atri al fibrillation (HCC); Essential hyper tension; Type 2 diabetes mellitus with hyperosmolarity without coma, with long-term current use of insulin (HCC) 06/14/2019 Intake Access after 02/27/2019 Immunizations Name Administration Dates Next Due FLUCELVAX QUAD PF 06/24/2019 Family History Medical History Relation Name Comments Heart disease Father Cancer Mother Relation Name Status Comments Father heart attack Mother Liver Social History Tobacco Use Types Packs/Day Years Used Date Never Smoker Smokeless Tobacco: Never Used Alcohol Use Drinks/Week oz/Week Comments Never Alcohol Habits Answer Date Recorded How often do you have a drink containing alcohol? Never 06/15/2019 How many drinks containing alcohol do you have on a typical Not asked day when you are drinking? How often do you have six or more drinks on one occasion? No t asked Sex Assigned at Date Recorded Not on file Job Start Date Occupation Industry Not on file Not on file Not on file Travel History Travel Start Travel End No recent travel history available. Last Filed Vital Signs Vital Sign Reading Time Taken Comments Blood Pressure 124/58 06/24/2019 11:40 AM CDT Pulse 77 06/24/2019 11:40 AM CDT Temperature 36.5 C (97.7 F) 06/24/2019 11:40 AM CDT Respiratory Rate 16 06/24/2019 11:40 AM CDT Oxygen Saturation 97% 06/24/2019 11:40 AM CDT Inhaled Oxygen Concentration - - Weight 83.4 kg (183 lb 14.4 oz) 06/24/2019 4:55 AM CDT Height 172.7 cm (5' 8") 06/18/2019 7:00 PM CDT Body Mass Index 27.96 06/18/2019 7:00 PM CDT Plan of Treatment Health Maintenance Due Date Last Done Comments DIABETIC RETINAL EYE EXAM 1940 DIABETIC FOOT EXAM 1948 URINE MICROALBUMIN 1948 SHINGLES VACCINES (#1) 1988 65+ PNEUMOCOCCAL VACCINE (1 of 2 - PCV13) 2003 INFLUENZA VACCINE 04/22/2020 06/24/2019 Procedures Procedure Name Priority Date/Time Associated Comments Diagnosis POC GLUCOSE Routine 06/24/2019 11:42 Results for this AM CDT procedure are i n the results section. POC GLUCOSE Routine 06/24/2019 7:44 Results for this AM CDT procedure are i n the results section. ESTIMATED GFR Routine 06/24/2019 5:57 Results fo r this AM CDT procedure are i n the results section. PHOSPHORUS LEVEL Routine 06/24/2019 5:57 Results for this AM CDT procedure are i n the results section. MAGNESIUM LEVEL Routine 06/24/2019 5:57 Results for this AM CDT procedure are i n the results section. BASIC METABOLIC PANEL Routine 06/24/2019 5:57 Re sults for this AM CDT procedure are i n the results section. HC COMPLETE BLD COUNT Routine 06/24/2019 5:57 Re sults for this W/AUTO DIFF AM CDT procedure are i n the results section. POC GLUCOSE Routine 06/23/2019 8:41 Results for this PM CDT procedure are i n the results section. POC GLUCOSE Routine 06/23/2019 4:17 Results for this PM CDT procedure are i n the results section. XR CHEST 1 VW PORTABLE Routine 06/23/2019 11:48 R esults for this AM CDT procedure are i n the results section. POC GLUCOSE Routine 06/23/2019 11:15 Results for this AM CDT procedure are i n the results section. POC GLUCOSE Routine 06/23/2019 7:22 Results for this AM CDT procedure are i n the results section. ESTIMATED GFR Routine 06/23/2019 5:44 Results fo r this AM CDT procedure are i n the results section. PHOSPHORUS LEVEL Routine 06/23/2019 5:44 Results for this AM CDT procedure are i n the results section. MAGNESIUM LEVEL Routine 06/23/2019 5:44 Results for this AM CDT procedure are i n the results section. BASIC METABOLIC PANEL Routine 06/23/2019 5:44 Re sults for this AM CDT procedure are i n the results section. HC COMPLETE BLD COUNT Routine 06/23/2019 5:44 Re sults for this W/AUTO DIFF AM CDT procedure are i n the results section. POC GLUCOSE Routine 06/22/2019 8:45 Results for this PM CDT procedure are i n the results section. POC GLUCOSE Routine 06/22/2019 5:17 Results for this PM CDT procedure are i n the results section. POC GLUCOSE Routine 06/22/2019 11:03 Results for this AM CDT procedure are i n the results section. POC GLUCOSE Routine 06/22/2019 7:26 Results for this AM CDT procedure are i n the results section. PARTIAL THROMBOPLASTIN Routine 06/22/2019 5:30 R esults for this TIME (PTT) AM CDT procedure are i n the results section. HC COMPLETE BLD COUNT Routine 06/22/2019 5:30 Re sults for this W/AUTO DIFF AM CDT procedure are i n the results section. ESTIMATED GFR Routine 06/22/2019 4:00 Results fo r this AM CDT procedure are i n the results section. BASIC METABOLIC PANEL Routine 06/22/2019 4:00 Re sults for this AM CDT procedure are i n the results section. DIGOXIN LEVEL Routine 06/22/2019 4:00 Results fo r this AM CDT procedure are i n the results section. IONIZED CALCIUM Routine 06/22/2019 4:00 Results for this AM CDT procedure are i n the results section. POC GLUCOSE Routine 06/21/2019 9:03 Results for this PM CDT procedure are i n the results section. POC GLUCOSE Routine 06/21/2019 5:44 Results for this PM CDT procedure are i n the results section. POC GLUCOSE Routine 06/21/2019 4:29 Results for this PM CDT procedure are i n the results section. POC GLUCOSE Routine 06/21/2019 10:41 Results for this AM CDT procedure are i n the results section. POC GLUCOSE Routine 06/21/2019 7:15 Results for this AM CDT procedure are i n the results section. ESTIMATED GFR Routine 06/21/2019 4:00 Results fo r this AM CDT procedure are i n the results section. BASIC METABOLIC PANEL Routine 06/21/2019 4:00 Re sults for this AM CDT procedure are i n the results section. DIGOXIN LEVEL Routine 06/21/2019 4:00 Results fo r this AM CDT procedure are i n the results section. PARTIAL THROMBOPLASTIN Routine 06/21/2019 4:00 R esults for this TIME (PTT) AM CDT procedure are i n the results section. HC COMPLETE BLD COUNT Routine 06/21/2019 4:00 Re sults for this W/AUTO DIFF AM CDT procedure are i n the results section. IONIZED CALCIUM Routine 06/21/2019 4:00 Results for this AM CDT procedure are i n the results section. LDH Routine 06/21/2019 4:00 Results for this AM CDT procedure are i n the results section. MAGNESIUM LEVEL Routine 06/21/2019 3:37 Results for this AM CDT procedure are i n the results section. POC GLUCOSE Routine 06/20/2019 8:57 Results for this PM CDT procedure are i n the results section. POC GLUCOSE Routine 06/20/2019 4:53 Results for this PM CDT procedure are i n the results section. POC GLUCOSE Routine 06/20/2019 11:01 Results for this AM CDT procedure are i n the results section. DIGOXIN LEVEL Routine 06/20/2019 9:08 Results fo r this AM CDT procedure are i n the results section. POC GLUCOSE Routine 06/20/2019 7:51 Results for this AM CDT procedure are i n the results section. ESTIMATED GFR Routine 06/20/2019 4:00 Results fo r this AM CDT procedure are i n the results section. HC COMPLETE BLD COUNT Routine 06/20/2019 4:00 Re sults for this W/AUTO DIFF AM CDT procedure are i n the results section. IONIZED CALCIUM Routine 06/20/2019 4:00 Results for this AM CDT procedure are i n the results section. BASIC METABOLIC PANEL Routine 06/20/2019 4:00 Re sults for this AM CDT procedure are i n the results section. PARTIAL THROMBOPLASTIN Routine 06/20/2019 4:00 R esults for this TIME (PTT) AM CDT procedure are i n the results section. LDH Routine 06/20/2019 4:00 Results for this AM CDT procedure are i n the results section. POC GLUCOSE Routine 06/19/2019 9:03 Results for this PM CDT procedure are i n the results section. POC GLUCOSE Routine 06/19/2019 5:12 Results for this PM CDT procedure are i n the results section. POC GLUCOSE Routine 06/19/2019 12:50 Results for this PM CDT procedure are i n the results section. DIGOXIN LEVEL STAT 06/19/2019 7:54 Results fo r this AM CDT procedure are i n the results section. PARTIAL THROMBOPLASTIN Timed 06/19/2019 7:41 R esults for this TIME (PTT) AM CDT procedure are i n the results section. POC GLUCOSE Routine 06/19/2019 7:16 Results for this AM CDT procedure are i n the results section. ECG 12-LEAD STAT 06/19/2019 6:41 Results for this AM CDT procedure are i n the results section. MANUAL DIFFERENTIAL Routine 06/19/2019 4:00 Resu lts for this AM CDT procedure are i n the results section. ESTIMATED GFR Routine 06/19/2019 4:00 Results fo r this AM CDT procedure are i n the results section. LDH Routine 06/19/2019 4:00 Results for this AM CDT procedure are i n the results section. CBC WITH PLATELET AND Routine 06/19/2019 4:00 Re sults for this DIFFERENTIAL AM CDT procedure are i n the results section. LACTIC ACID LEVEL Routine 06/19/2019 4:00 Result s for this AM CDT procedure are i n the results section. PHOSPHORUS LEVEL Routine 06/19/2019 4:00 Results for this AM CDT procedure are i n the results section. MAGNESIUM LEVEL Routine 06/19/2019 4:00 Results for this AM CDT procedure are i n the results section. TROPONIN Routine 06/19/2019 4:00 Results for this AM CDT procedure are i n the results section. COMPREHENSIVE METABOLIC Routine 06/19/2019 4:00 Results for this PANEL AM CDT procedure are i n the results section. HEMOGLOBIN & HEMATOCRIT Timed 06/19/2019 1:30 Results for this AM CDT procedure are i n the results section. PARTIAL THROMBOPLASTIN Timed 06/19/2019 1:30 R esults for this TIME (PTT) AM CDT procedure are i n the results section. POC GLUCOSE Routine 06/18/2019 9:03 Results for this PM CDT procedure are i n the results section. HEMOGLOBIN & HEMATOCRIT Timed 06/18/2019 8:00 Results for this PM CDT procedure are i n the results section. POC GLUCOSE Routine 06/18/2019 5:36 Results for this PM CDT procedure are i n the results section. ACTIVATED CLOTTING TIME Routine 06/18/2019 2:41 Results for this PM CDT procedure are i n the results section. O2 SATURATION, VENOUS Routine 06/18/2019 11:48 Re sults for this AM CDT procedure are i n the results section. POC GLUCOSE Routine 06/18/2019 10:45 Results for this AM CDT procedure are i n the results section. XR CHEST 1 VW PORTABLE Routine 06/18/2019 9:21 R esults for this AM CDT procedure are i n the results section. PARTIAL THROMBOPLASTIN Routine 06/18/2019 8:34 R esults for this TIME (PTT) AM CDT procedure are i n the results section. POC GLUCOSE Routine 06/18/2019 7:39 Results for this AM CDT procedure are i n the results section. ESTIMATED GFR Routine 06/18/2019 2:30 Results fo r this AM CDT procedure are i n the results section. O2 SATURATION, VENOUS Routine 06/18/2019 2:30 Re sults for this AM CDT procedure are i n the results section. HC COMPLETE BLD COUNT Routine 06/18/2019 2:30 Re sults for this W/AUTO DIFF AM CDT procedure are i n the results section. DIGOXIN LEVEL Routine 06/18/2019 2:30 Results fo r this AM CDT procedure are i n the results section. LACTIC ACID LEVEL Routine 06/18/2019 2:30 Result s for this AM CDT procedure are i n the results section. PHOSPHORUS LEVEL Routine 06/18/2019 2:30 Results for this AM CDT procedure are i n the results section. MAGNESIUM LEVEL Routine 06/18/2019 2:30 Results for this AM CDT procedure are i n the results section. TROPONIN Routine 06/18/2019 2:30 Results for this AM CDT procedure are i n the results section. COMPREHENSIVE METABOLIC Routine 06/18/2019 2:30 Results for this PANEL AM CDT procedure are i n the results section. TTE COMPLETE, WO Routine 06/18/2019 1:45 Results for this CONTRAST, W DOPPLER AM CDT procedur e are in ([id number]) the results section. PARTIAL THROMBOPLASTIN STAT 06/18/2019 12:50 R esults for this TIME (PTT) AM CDT procedure are i n the results section. ECG 12-LEAD STAT 06/17/2019 11:16 Results for this PM CDT procedure are i n the results section. ECG 12-LEAD Routine 06/17/2019 11:15 Results for this PM CDT procedure are i n the results section. XR CHEST 1 VW PORTABLE STAT 06/17/2019 10:07 R esults for this PM CDT procedure are i n the results section. POC GLUCOSE Routine 06/17/2019 9:06 Results for this PM CDT procedure are i n the results section. POC GLUCOSE Routine 06/17/2019 5:09 Results for this PM CDT procedure are i n the results section. PARTIAL THROMBOPLASTIN Routine 06/17/2019 5:08 R esults for this TIME (PTT) PM CDT procedure are i n the results section. POC GLUCOSE Routine 06/17/2019 10:48 Results for this AM CDT procedure are i n the results section. PARTIAL THROMBOPLASTIN Timed 06/17/2019 9:41 R esults for this TIME (PTT) AM CDT procedure are i n the results section. XR CHEST 1 VW PORTABLE STAT 06/17/2019 9:38 R esults for this AM CDT procedure are i n the results section. XR ABDOMEN 1 VW STAT 06/17/2019 9:38 Results for this PORTABLE AM CDT procedure are i n the results section. ESTIMATED GFR Routine 06/17/2019 8:49 Results fo r this AM CDT procedure are i n the results section. MAGNESIUM LEVEL Routine 06/17/2019 8:49 Results for this AM CDT procedure are i n the results section. BASIC METABOLIC PANEL Routine 06/17/2019 8:49 Re sults for this AM CDT procedure are i n the results section. POC GLUCOSE Routine 06/17/2019 6:56 Results for this AM CDT procedure are i n the results section. PARTIAL THROMBOPLASTIN Timed 06/17/2019 3:30 R esults for this TIME (PTT) AM CDT procedure are i n the results section. ESTIMATED GFR Routine 06/17/2019 3:30 Results fo r this AM CDT procedure are i n the results section. LACTIC ACID LEVEL Routine 06/17/2019 3:30 Result s for this AM CDT procedure are i n the results section. PHOSPHORUS LEVEL Routine 06/17/2019 3:30 Results for this AM CDT procedure are i n the results section. MAGNESIUM LEVEL Routine 06/17/2019 3:30 Results for this AM CDT procedure are i n the results section. TROPONIN Routine 06/17/2019 3:30 Results for this AM CDT procedure are i n the results section. COMPREHENSIVE METABOLIC Routine 06/17/2019 3:30 Results for this PANEL AM CDT procedure are i n the results section. PARATHYROID HORMONE Routine 06/17/2019 3:30 Resu lts for this AM CDT procedure are i n the results section. PHOSPHORUS LEVEL Routine 06/17/2019 3:30 Results for this AM CDT procedure are i n the results section. FERRITIN LEVEL Routine 06/17/2019 3:30 Results f or this AM CDT procedure are i n the results section. TOTAL IRON BINDING Routine 06/17/2019 3:30 Resul ts for this CAPACITY AM CDT procedure are i n the results section. DIGOXIN LEVEL Routine 06/17/2019 3:30 Results fo r this AM CDT procedure are i n the results section. VENOUS BLOOD GAS Routine 06/17/2019 3:30 Results for this AM CDT procedure are i n the results section. HC COMPLETE BLD COUNT Routine 06/17/2019 3:30 Re sults for this W/AUTO DIFF AM CDT procedure are i n the results section. VITAMIN D 25 HYDROXY Routine 06/17/2019 3:30 Res ults for this LEVEL AM CDT procedure are i n the results section. VANCOMYCIN LEVEL, Routine 06/17/2019 3:30 Result s for this RANDOM AM CDT procedure are i n the results section. PARTIAL THROMBOPLASTIN Routine 06/16/2019 9:50 R esults for this TIME (PTT) PM CDT procedure are i n the results section. POC GLUCOSE Routine 06/16/2019 9:09 Results for this PM CDT procedure are i n the results section. US RENAL Routine 06/16/2019 6:20 Results for this PM CDT procedure are i n the results section. ESTIMATED GFR Timed 06/16/2019 6:00 Results fo r this PM CDT procedure are i n the results section. COMPREHENSIVE METABOLIC Timed 06/16/2019 6:00 Results for this PANEL PM CDT procedure are i n the results section. TROPONIN Timed 06/16/2019 6:00 Results for this PM CDT procedure are i n the results section. B NATRIURETIC PEPTIDE Timed 06/16/2019 5:30 Re sults for this PM CDT procedure are i n the results section. VENOUS BLOOD GAS Routine 06/16/2019 5:30 Results for this PM CDT procedure are i n the results section. HC COMPLETE BLD COUNT Timed 06/16/2019 5:30 Re sults for this W/AUTO DIFF PM CDT procedure are i n the results section. POC GLUCOSE Routine 06/16/2019 4:54 Results for this PM CDT procedure are i n the results section. TROPONIN Routine 06/16/2019 4:44 Results for this PM CDT procedure are i n the results section. SODIUM LEVEL, URINE, Routine 06/16/2019 12:00 Res ults for this RANDOM PM CDT procedure are i n the results section. UREA NITROGEN, URINE, Routine 06/16/2019 12:00 Re sults for this RANDOM PM CDT procedure are i n the results section. PROTEIN, URINE, RANDOM Routine 06/16/2019 12:00 R esults for this PM CDT procedure are i n the results section. CREATININE LEVEL, Routine 06/16/2019 12:00 Result s for this URINE, RANDOM PM CDT procedure are in the results section. POC GLUCOSE Routine 06/16/2019 11:05 Results for this AM CDT procedure are i n the results section. ESTIMATED GFR Routine 06/16/2019 10:40 Results fo r this AM CDT procedure are i n the results section. LACTIC ACID LEVEL Routine 06/16/2019 10:40 Result s for this AM CDT procedure are i n the results section. TROPONIN Routine 06/16/2019 10:40 Results for this AM CDT procedure are i n the results section. PHOSPHORUS LEVEL Routine 06/16/2019 10:40 Results for this AM CDT procedure are i n the results section. MAGNESIUM LEVEL Routine 06/16/2019 10:40 Results for this AM CDT procedure are i n the results section. BASIC METABOLIC PANEL Routine 06/16/2019 10:40 Re sults for this AM CDT procedure are i n the results section. ARTERIAL BLOOD GAS Routine 06/16/2019 10:40 Resul ts for this AM CDT procedure are i n the results section. ANTI XA APIXABAN Timed 06/16/2019 10:40 Results for this AM CDT procedure are i n the results section. PROTHROMBIN TIME WITH Timed 06/16/2019 10:40 Re sults for this INR AM CDT procedure are i n the results section. PARTIAL THROMBOPLASTIN Timed 06/16/2019 10:40 R esults for this TIME (PTT) AM CDT procedure are i n the results section. ECG 12-LEAD Routine 06/16/2019 10:31 Results for this AM CDT procedure are i n the results section. POC GLUCOSE Routine 06/16/2019 9:47 Results for this AM CDT procedure are i n the results section. POC GLUCOSE Routine 06/16/2019 7:17 Results for this AM CDT procedure are i n the results section. ESTIMATED GFR Routine 06/16/2019 5:00 Results fo r this AM CDT procedure are i n the results section. O2 SATURATION, VENOUS Routine 06/16/2019 5:00 Re sults for this AM CDT procedure are i n the results section. LACTIC ACID LEVEL Routine 06/16/2019 5:00 Result s for this AM CDT procedure are i n the results section. PHOSPHORUS LEVEL Routine 06/16/2019 5:00 Results for this AM CDT procedure are i n the results section. TROPONIN Routine 06/16/2019 5:00 Results for this AM CDT procedure are i n the results section. MAGNESIUM LEVEL Routine 06/16/2019 5:00 Results for this AM CDT procedure are i n the results section. COMPREHENSIVE METABOLIC Routine 06/16/2019 5:00 Results for this PANEL AM CDT procedure are i n the results section. XR CHEST 1 VW PORTABLE STAT 06/16/2019 1:49 R esults for this AM CDT procedure are i n the results section. ESTIMATED GFR Routine 06/16/2019 1:30 Results fo r this AM CDT procedure are i n the results section. LACTIC ACID LEVEL Routine 06/16/2019 1:30 Result s for this AM CDT procedure are i n the results section. TROPONIN Routine 06/16/2019 1:30 Results for this AM CDT procedure are i n the results section. MAGNESIUM LEVEL Routine 06/16/2019 1:30 Results for this AM CDT procedure are i n the results section. PHOSPHORUS LEVEL Routine 06/16/2019 1:30 Results for this AM CDT procedure are i n the results section. COMPREHENSIVE METABOLIC Routine 06/16/2019 1:30 Results for this PANEL AM CDT procedure are i n the results section. BETA HYDROXYBUTYRATE Routine 06/16/2019 1:30 Res ults for this AM CDT procedure are i n the results section. IABP PLACEMENT Routine 06/16/2019 1:28 Cardiogenic shock Resu lts for this AM CDT (HCC) procedure are i n the results section. XR CHEST 1 VW PORTABLE STAT 06/16/2019 1:01 R esults for this AM CDT procedure are i n the results section. HC COMPLETE BLD COUNT Routine 06/16/2019 1:00 Re sults for this W/AUTO DIFF AM CDT procedure are i n the results section. HC ECHO 2-D F/UP STAT 06/16/2019 12:52 Results for this LIMITED AM CDT procedure are i n the results section. MA INSERT Routine 06/15/2019 11:39 Cardiogenic shock Result s for this CATH,ART,PERCUT,SHORTTE PM CDT ([facility]) procedure are in RM Atrial the results fibrillation, section. unspecified type ([facility]) MA INSERT NON-TUNNEL CV Routine 06/15/2019 11:37 Cardiogenic s hock Results for this CATH PM CDT ([facility]) procedure are i n the results section. POC GLUCOSE Routine 06/15/2019 11:35 Results for this PM CDT procedure are i n the results section. VENOUS BLOOD GAS STAT 06/15/2019 11:30 Results for this PM CDT procedure are i n the results section. BLOOD CULTURE, AEROBIC Routine 06/15/2019 11:30 R esults for this & ANAEROBIC PM CDT procedure are i n the results section. LIPID PANEL Routine 06/15/2019 11:25 Results for this PM CDT procedure are i n the results section. HEMOGLOBIN A1C Routine 06/15/2019 11:25 Results f or this PM CDT procedure are i n the results section. ANTI XA APIXABAN STAT 06/15/2019 11:25 Results for this PM CDT procedure are i n the results section. PROTHROMBIN TIME WITH STAT 06/15/2019 11:25 Re sults for this INR PM CDT procedure are i n the results section. PARTIAL THROMBOPLASTIN STAT 06/15/2019 11:25 R esults for this TIME (PTT) PM CDT procedure are i n the results section. BLOOD CULTURE, AEROBIC Routine 06/15/2019 11:15 R esults for this & ANAEROBIC PM CDT procedure are i n the results section. ECG 12-LEAD STAT 06/15/2019 10:22 Results for this PM CDT procedure are i n the results section. PARTIAL THROMBOPLASTIN STAT 06/15/2019 9:30 R esults for this TIME (PTT) PM CDT procedure are i n the results section. PROTHROMBIN TIME WITH STAT 06/15/2019 9:30 Re sults for this INR PM CDT procedure are i n the results section. IONIZED CALCIUM, STAT 06/15/2019 9:30 Results for this ARTERIAL PM CDT procedure are i n the results section. ESTIMATED GFR STAT 06/15/2019 9:30 Results fo r this PM CDT procedure are i n the results section. TROPONIN STAT 06/15/2019 9:30 Results for this PM CDT procedure are i n the results section. MAGNESIUM LEVEL STAT 06/15/2019 9:30 Results for this PM CDT procedure are i n the results section. LACTIC ACID LEVEL STAT 06/15/2019 9:30 Result s for this PM CDT procedure are i n the results section. COMPREHENSIVE METABOLIC STAT 06/15/2019 9:30 Results for this PANEL PM CDT procedure are i n the results section. HC COMPLETE BLD COUNT STAT 06/15/2019 9:30 Re sults for this W/AUTO DIFF PM CDT procedure are i n the results section. B NATRIURETIC PEPTIDE STAT 06/15/2019 9:30 Re sults for this PM CDT procedure are i n the results section. ARTERIAL BLOOD GAS STAT 06/15/2019 9:30 Resul ts for this PM CDT procedure are i n the results section. ECG 12-LEAD Routine 06/15/2019 9:24 Results for this PM CDT procedure are i n the results section. POC GLUCOSE Routine 06/15/2019 9:19 Results for this PM CDT procedure are i n the results section. ECG 12-LEAD STAT 06/15/2019 8:51 Results for this PM CDT procedure are i n the results section. XR CHEST 2 VW Routine 06/15/2019 8:05 Results fo r this PM CDT procedure are i n the results section. POC GLUCOSE Routine 06/15/2019 5:11 Results for this PM CDT procedure are i n the results section. CLOSTRIDIUM DIFFICILE Routine 06/15/2019 2:00 Re sults for this TOXIN PM CDT procedure are i n the results section. POC GLUCOSE Routine 06/15/2019 11:53 Results for this AM CDT procedure are i n the results section. POC GLUCOSE Routine 06/15/2019 8:48 Results for this AM CDT procedure are i n the results section. ESTIMATED GFR Routine 06/15/2019 5:40 Results fo r this AM CDT procedure are i n the results section. T4, FREE Routine 06/15/2019 5:40 Results for this AM CDT procedure are i n the results section. THYROID STIMULATING Routine 06/15/2019 5:40 Resu lts for this HORMONE AM CDT procedure are i n the results section. LIPID PANEL Routine 06/15/2019 5:40 Results for this AM CDT procedure are i n the results section. HEMOGLOBIN A1C Routine 06/15/2019 5:40 Results f or this AM CDT procedure are i n the results section. BASIC METABOLIC PANEL Routine 06/15/2019 5:40 Re sults for this AM CDT procedure are i n the results section. HC COMPLETE BLD COUNT Routine 06/15/2019 5:40 Re sults for this W/AUTO DIFF AM CDT procedure are i n the results section. GRAM STAIN Routine 06/15/2019 4:58 Results for this AM CDT procedure are i n the results section. URINE CULTURE Routine 06/15/2019 4:58 Results fo r this AM CDT procedure are i n the results section. URINALYSIS SCREEN AND Routine 06/15/2019 3:50 Re sults for this MICROSCOPY, WITH REFLEX AM CDT proc edure are in TO CULTURE the results section. ECG 12-LEAD Routine 06/15/2019 1:42 Results for this AM CDT procedure are i n the results section. after 02/27/2019 Results POC glucose (06/24/2019 11:42 AM CDT)Only the most recent of41 resultswithin the time period is included. Pathologist Sig nature POC glucose 165 (H) 65 - 99 mg/dL [facility] Comment: [facility] Notified RN Meter ID: [id number] Expediter: Sher Barrios Specimen Performing Organization Address City/State/Zipcode Phone Number [facility] DEPARTMENT OF PATHOLOGY AND [address] [place], [place] [address] GEN[address] [address] Estimated GFR (06/24/2019 5:57 AM CDT)Only the most recent of15 resultswithin the time period is included. Estimated GFR 28 (A) mL/min/1.[address] [facility] Comment: HOSPITAL Catergory Units Interpretation G1 >=90 Normal or high G2 60-89 Mildly decreased G3a 45-59 Mildly to moderately decreas ed G3b 30-44 Moderately to severely decre ased G4 15-29 Severely decreased G5 <15 Kidney failure The eGFR was calculated using the Chronic Kidney Disea se Epidemiology Collaboration (CKD-EPI) equation. Interpretation is based on recommendations of the National Kidney Foundation-Kidney Disease Outcomes Brandon lity Initiative (NKF-KDOQI) published in 2014. Specimen Plasma specimen Performing Organization Address City/State/Zipcode Phone Number [facility] DEPARTMENT OF PATHOLOGY AND [address] [place], [place] [address] GENOMIC MEDICINE [facility] [address] [place] [address] CBC with platelet and differential (06/24/2019 5:57 AM CDT)Only the most recent of12 resultswithin the time period is included. WBC 7.22 4.50 - 11.00 [facility] k/uL HOSPITAL RBC 3.37 (L) 4.20 - 5.50 [facility] m/uL [facility] HGB 9.4 (L) 12.0 - 16.0 [facility] g/dL [facility] HCT 30.9 (L) 37.0 - 47.0 % [facility] MCV 91.7 82.0 - 100.0 [facility] MCH 27.9 27.0 - 34.0 pg [facility] MCHC 30.4 (L) 31.0 - 37.0 [facility] gdL [facility] RDW - SD 60.5 (H) 37.0 - 55.0 fL [facility] MPV 11.6 8.8 - 13.2 fL [facility] Platelet count 246 150 - 400 k/uL [facility] Nucleated RBC 0.00 /100 WBC [facility] Neutrophils 71.7 (H) 39.0 - 69.0 % [facility] Lymphocytes 11.5 (L) 25.0 - 45.0 % [facility] Monocytes 12.2 (H) 0.0 - 10.0 % [facility] Eosinophils 2.9 0.0 - 5.0 % [facility] Basophils 0.6 0.0 - 1.0 % [facility] Immature granulocytes 1.1 0.0 - 1.0 % [facility] (H)Comment: HOSPITAL "Immature granulocytes" (promyelocytes , myelocytes, metamyelocytes ) Specimen Blood Performing Organization Address City/[facility] Phone Number [facility] DEPARTMENT OF PATHOLOGY AND [address] [place] [address] [place] [phone] Phosphorus level (06/24/2019 5:57 AM CDT)Only the most recent of9 resultswithin the time period is included. Pathologist Sig nature Phosphorus 2.7 2.4 - 4.5 mg/dL [facility] L Specimen Plasma specimen Performing Organization Address [facility] Phone Number [facility] DEPARTMENT OF PATHOLOGY AND [address] [place] [phone] [place] [address] Magnesium level (06/24/2019 5:57 AM CDT)Only the most recent of11 resultswithin the time period is included. Pathologist Sig nature Magnesium 1.8 1.6 - 2.4 mg/dL [facility] Specimen Plasma specimen Performing Organization Address [facility] [place] Phone Number [facility] DEPARTMENT OF PATHOLOGY AND [address] [place] [address] [phone] [address] Basic metabolic panel (06/24/2019 5:57 AM CDT)Only the most recent of8 results within the time period is included. Pathologist Sig nature Sodium 142 135 - 148 mEq/L [facility] Potassium 3.9 3.5 - 5.0 mEq/L [facility] Chloride 101 98 - 112 mEq/L [facility] CO2 27 24 - 31 mEq/L [facility] Anion gap 14@ANIO 7 - 15 mEq/L [facility] BUN 41 (H) 8 - 23 mg/dL [facility] Creatinine 1.69 (H) 0.50 - 0.90 mg/dL [facility] Glucose 164 (H) 65 - 99 mg/dL [facility] Calcium 9.5 8.8 - 10.2 mg/dL [facility] Specimen Plasma specimen Performing Organization Address [facility] Cent[facility]ode Phone Number [facility] DEPARTMENT OF PATHOLOGY AND [address] [place] [address] [place] [address] XR Chest 1 Vw Portable (06/23/2019 11:48 AM CDT)Only the most recent of6 results within the time period is included. Specimen Narrative Performed At EXAMINATION: [facility]B COMPARISON: June 18, 2019 IMPRESSION: Since previous examination the right IJ catheter is be en removed. Changes of a midline sternotomy are noted. There i s a defibrillator overlying the right upper abdomen. There is cardiomegaly. Thoracic aorta is calcified a nd tortuous but not dilated. There is some minimal patchy atelectati c changes towards both lung bases with no definite infiltr ate. [facility]-[id number] Procedure Note Interface, Radiology Results Incoming - 06/23/2019 11:54 AM CDT EXAMINATION: XR CHEST 1 VW PORTABLE CLINICAL HISTORY: SOB COMPARISON: June 18, 2019 IMPRESSION: Since previous examination the right IJ catheter is been removed. Changes of a midline sternotomy are noted. There is a defibrillator overlying the right upper abdomen. There is cardiomegaly. Thoracic aorta i s calcified and tortuous but not dilated. There is some minimal patchy atelectatic changes towards both lung bases with no definite infiltrate. [facility]-[id number] Performing Organization Address City/State/Zipcode Phone Number [facility] [address] [place] [phone] Partial thromboplastin time, activated (06/22/2019 5:30 AM CDT)Only the most recent of14 resultswithin the time period is included. Pathologist [facility] PTT 35.2 23.0 - 36.0 [facility] Comment: [facility] PTT therapeutic range for unfractionated heparin is 61.0-112.0 seconds which corresponds to Anti-Xa 0.3-0.7 U/ml. Specimen Blood Performing Organization Address City/State/Zipcode Phone Number [facility] DEPARTMENT OF PATHOLOGY AND [address] [place] [address] [phone] [address] Ionized calcium (06/22/2019 4:00 AM CDT)Only the most recent of3 resultswithin the time period is included. Pathologist Sig nature pH 7.51 [facility] Ionized calcium 1.07 (L) 1.11 - 1.32 [facility] mmol/L [facility] Specimen Plasma specimen Performing Organization Address City/[facility] Cent[facility]ode Phone Number [facility] DEPARTMENT OF PATHOLOGY AND [address] [place] [phone] Digoxin level (06/22/2019 4:00 AM CDT)Only the most recent of6 resultswithin the time period is included. Digoxin 0.9 0.8 - 2.0 ng/mL [facility] Comment: HOSPITAL For valid Digoxin results, at least 6 hours should anthony pse between time of last dose and collection of blood. Otherwise, result may be false high. Therapeutic Range: 0.8 - 2.0 ng/mL Specimen Plasma specimen Performing Organization Address [facility] [place] Phone Number [facility] DEPARTMENT OF PATHOLOGY AND [address] [place] [phone] LDH (06/21/2019 4:00 AM CDT)Only the most recent of3 resultswithin the time period is included. Pathologist Sig nature LDH 273 (H) 87 - 225 U/L [facility] Specimen Plasma specimen Performing Organization Address [facility] Phone Number [facility] DEPARTMENT OF PATHOLOGY AND [address] [place] [address] ECG 12 lead (06/19/2019 6:41 AM CDT)Only the most recent of8 resultswithin the time period is included. Pathologist Sig nature Ventricular rate 82 [facility] Atrial rate 89 [facility] QRSD interval 100 [facility] QT interval 364 [facility] QTC interval 425 [facility] QRS axis 1 -7 [facility] T wave axis 198 [facility] EKG impression Atrial fibrillation-Low [facility] voltage QRS-Cannot rule out Anteroseptal infarct , age undetermined-Abnormal ECG-No previous ECGs available-Electronicall y Signed By Ramin Hill MD ([id number]) on 06/20/2019 5:53:08 PM Specimen Narrative Performed At This result has an attachment that is no t available. Performing Organization Address City/[facility] Cent[facility]ode Phone Number [facility] MUSE [address] [place] [phone] Troponin (06/19/2019 4:00 AM CDT)Only the most recent of9 resultswithin the time period is included. Troponin 2.139 (HH) 0.000 - 0.040 [facility] Comment: ng/mL [facility] changed methodology eff ective: 01/26/2019 at 10:00 am The new method has a 99th percentile cutoff of 0.040 n g/mL Specimen Plasma specimen Performing Organization Address City/[facility] Cent[facility]ode Phone Number [facility] DEPARTMENT OF PATHOLOGY AND [address] [place] [address] [phone] [address] Manual differential (06/19/2019 4:00 AM CDT) Manual differential PERFORMED [facility] Neutrophils 80.0 (H) 39.0 - 69.0 % [facility] Lymphocytes 10.0 (L) 25.0 - 45.0 % [facility] Monocytes 8.0 0.0 - 10.0 % [facility] Eosinophils 1.0 0.0 - 5.0 % [facility] Basophils 1.0 0.0 - 1.0 % [facility] Metamyelocytes 0 % [facility] Promyelocytes 0 % [facility] Platelet slide review Watson slt decr [facility] Anisocytosis Moderate [facility] Polychromasia Moderate [facility] Ovalocytes Moderate [facility] Specimen Narrative Performed At __TROP_ results called to and read back by [facility] DEPARTM ENT OF PATHOLOGY AND GENOMIC AFUA FULTON\\[id number](name/location) at __ 06/19/2019 06:16 (date/time) by RAJENDRA_. Performing Organization Address [facility]/Zipcode Phone Number [facility] DEPARTMENT OF PATHOLOGY AND [address] [place] [address] [phone] [address] Lactic acid level (06/19/2019 4:00 AM CDT)Only the most recent of7 results within the time period is included. Pathologist Sig nature Lactic acid 0.9 0.5 - 2.2 mmol/L [facility] Specimen Plasma specimen Performing Organization Address City/State/Zipcode Phone Number [facility] DEPARTMENT OF PATHOLOGY AND [address] [place] [address] [phone] [address] Comprehensive metabolic panel (06/19/2019 4:00 AM CDT)Only the most recent of7 resultswithin the time period is included. Sodium 138 135 - 148 [facility] mEq/L [facility] Potassium 4.1 3.5 - 5.0 [facility] mEq/L [facility] Chloride 99 98 - 112 [facility] mEq/L [facility] CO2 25 24 - 31 mEq/L [facility] Anion gap 14@ANIO 7 - 15 mEq/L [facility] BUN 37 (H) 8 - 23 mg/dL [facility] Creatinine 1.90 (H) 0.50 - 0.90 [facility] mg/dL [facility] Glucose 137 (H) 65 - 99 mg/dL [facility] Calcium 8.5 (L) 8.8 - 10.2 [facility] mg/dL [facility] Protein 6.3 6.3 - 8.3 [facility] Comment: g/dL [facility]ITAL [place] 4.6-7.0 g/dL 1 week 4.4-7.6 g/dL 7 months-1year 5.1-7.3 g/dL 1-2 years 5.6-7.5 g/dL >3 years 6.0-8.0 g/dL 18-150 6.3-8.3 g/dL Albumin 3.9 3.5 - 5.0 [facility] g/dL [facility] A/G ratio 1.6 0.7 - 3.8 [facility] Alkaline phosphatase 49 35 - 104 U/L [facility] AST 623 (H) 10 - 35 U/L [facility] ALT 606 (H) 5 - 50 U/L [facility] Total bilirubin 1.0 0.0 - 1.2 [facility] mg/dL [facility]OSPITAL Specimen Plasma specimen Performing Organization Address City/State/Zipcode Phone Number [facility] DEPARTMENT OF PATHOLOGY AND [address] [place], [place] [address] [address] Hemoglobin & hematocrit (06/19/2019 1:30 AM CDT)Only the most recent of2 resultswithin the time period is included. Pathologist Sig nature HGB 9.4 (L) 12.0 - 16.0 g/dL [facility] HCT 30.3 (L) 37.0 - 47.0 % [facility] Specimen Blood Performing Organization Address [facility] Phone Number [facility] DEPARTMENT OF PATHOLOGY AND [address] [place] [phone] Activated clotting time (06/18/2019 2:41 PM CDT) Activated clotting 139 96 - 152 sec [facility] Comment: HOSPITAL Meter ID: [id number] Expediter: Liz Brennan Specimen Performing Organization Address [facility] [place] Phone Number [facility] DEPARTMENT OF PATHOLOGY AND [address] [place] [address] O2 saturation, venous (06/18/2019 11:48 AM CDT)Only the most recent of3 results within the time period is included. Pathologist Sig nature Hemoglobin, venous, 8.9 (L) 12.0 - 16.0 g/dL [facility] O2 saturation, 78 (H) 40 - 70 % [facility] Specimen Blood Performing Organization Address [facility] Phone Number [facility] DEPARTMENT OF PATHOLOGY AND [address] [place], [place] [phone] Echocardiogram complete w contrast and 3D if needed (06/18/2019 1:45 AM CDT) Specimen Narrative Performed At [facility] Echo cardiography Report [address] [place] [address] Pat.Name: NASIR DAS Pat.ID: [id number] .Date: 06/18/2019 Refer.MD: KEO DELGADO MD Exam Time: 1:34:00 AM Study Type:R outine Echo Height: 67in BSA: 1.96 m2 Age: 1 1940,78Y Sex: FEMALE BP: 105/54 HR: 76 bpm Sonogrphr: FARHAD Nguyễn Pat. Stat.:Inpat ient Room: [facility] [facility] [address] atus:Final Echo Event ID:[id number] Order ID: [id number] Reason for Study:CHF History / Clinical:Coronary Artery Disea se, Diabetes, Hypertension, Valvular Heart Disease; Aortic Stenosis Procedures: 2D Echo, Colorflow Doppler, Strain Race: C SUMMARY: Bioprosthetic aortic valve. Aortic valve high velocity and pressure gradient is likely due to patient prosth esis mismatch given normal AC and AC/ET. However there is increase in peak velocities and cannot rule out concomitant structural valve de generation. If indicated, CEDRICK/CT would be helpful LV EF is normal. Diastolic dysfunction Grade III (Severe) : Impaired relaxation with restrictive LV filling pressures. RV systolic function is depressed. At least moderate tricuspid regurgitatio n. Suboptimal/insufficient TR jet. Estimated PA systolic pressure is a t least 54 mmHg, assuming a mean RAP of 15 mmHg. FINDINGS: LV: LV size is normal. There is mild eccentric LV hypertrophy. LV EF is normal. Septal motion is par adoxical secondary to RV volume overload. Reg ional wall motion abnormalities present. Estimated EF is 60-64%. Basal Inferoseptal, Basal Inferior, Basal Inferolateral, Apical Septal zuniga are hypokinetic. Normal wall motion in all other zuniga. RV: RV size is enlarged. RV sys tolic function is depressed. LA: LA volume is moderately enl arged. RA: RA volume is enlarged. AO: Aortic root diameter is nor mal. CORTEZ: No pericardial effusion. AV: Bioprosthetic aortic valve. Surgical Prosthetic AV Doppler velocity index is 0.26 (normal>0.25). Aortic valve high velocity and pressure g radient is likely due to patient prosthesis mismatch giv en normal AC and AC/ET. However there is increase in peak velocities and cannot rule out concomitant structural valve degeneration. MV: Mild thickening of mitral l eaflets. Thickened and/or calcified chordae. Mild mitral regurgitation. PV: No structural PV abnormalit ies noted. A trace of pulmonic regurgitation. TV: No structural TV abnormalit ies noted. At least moderate tricuspid regurgitation Brothers: Diastolic dysfunction Grade III (Severe): Impaired relaxation with restric tive LV filling pressures. Other: Suboptimal/insufficient TR j et. Estimated PA systolic pressure is at least 54 mmHg, assuming a mean RAP of 15 mmHg. MEASUREMENTS: 2D Parasternal Long [place] Ao Rtd 3.5 cm Index 1.8 cm/m2 LVPWd 1 cm IVSd 1 cm LA Ds 4.5 cm LVIDd 5.5 cm Index 2.8 cm/m2 RWT 0.4 LVIDs 3.6 cm LV Mas s 205.3 g (87-129) LV%fs 33.8 % LVM Ind ex 104.8 g/m LA Sng Plane LA Area 26.2 cm (8.8-23.4) LA Vol 88.5 ml Index 45.2 ml/m2 LA LngAx 6.4 cm LVOT For Flow LVOT 2 cm LVOT Area 3.1 cm DOPPLER AV For Flow/ROMIE AV pkVel 417.5 cm/s (100-170) AV TVI 86.8 cm AV mnVel 306.6 cm/s AVpkAcRt 77184.4 cm/s AV pkPG 69.7 mmHg AV DeRt 1474.2 cm/s AV Mean G 44 mmHg AV Area 0.8 cm (3-5) AV ET 283 msec AV AC 79 msec (83-118) AV AC/ET 0.3 Aortic Valve AV DI 0.3 LVOT For Flow LVOT TVI 22.7 cm LVOT CI 2.6 l/m/m LVOT SV 71.4 ml LVOTpkPG 5.2 mmHg LVOTpkVel 114.3 cm/s LVOTmnPG 3.2 mmHg LVOT CO 5.1 l/min HR 71 bpm LVOT SVi 36.4 ml/m WALL MOTION: RESTING WALL MOTION: Basal Inferoseptal, Basal Inferior, Basa l Inferolateral, Apical Septal zuniga are hypokinetic. Normal wall mo tion in all other zuniga. Wall Index = 1.2 Signed 06/18/2019 11:01 AM Keo Clifford MD Procedure Note Interface, Radiology Results In - 2018 11:03 AM CDT Echocardiography Report [address] [place] [address] Pat.Name: NASIR DAS Pat.I D: [id number] .Date: 06/18/2019 Refer .MD: KEO DELGADO MD Exam Time: 1:34:00 AM Study Type:Routine Echo Height: 67in BSA: 1.96 m2 Age: 1 1940,78Y Sex: FEMALE BP: 105/54 HR: 76 bpm Sonogrphr: FARHAD Nguyễn Pat. Stat.:Inpatient Room: [place] [address] Study Status:Final Echo Event ID:[id number] Order ID: [id number] Reason for Study:CHF History / Clinical:Coronary Artery Disea se, Diabetes, Hypertension, Valvular Heart Disease; Aortic Stenosis Procedures: 2D Echo, Colorflow Doppler, Strain Race: C SUMMARY: Bioprosthetic aortic valve. Aortic valve high velocity and pressure gradient is likely due to patient prosth esis mismatch given normal AC and AC/ET. However there is increase in peak velocities and cannot rule out concomitant structural valve de generation. If indicated, CEDRICK/CT would be helpful LV EF is normal. Diastolic dysfunction Grade III (Severe) : Impaired relaxation with restrictive LV filling pressures. RV systolic function is depressed. At least moderate tricuspid regurgitatio n. Suboptimal/insufficient TR jet. Estimated PA systolic pressure is a t least 54 mmHg, assuming a mean RAP of 15 mmHg. FINDINGS: LV: LV size is normal. There is mi ld eccentric LV hypertrophy. LV EF is normal. Septal motio n is paradoxical secondary to RV volume overload. Regional wall motion abnormalities present. Estimated EF is 60-64%. Basal Inferoseptal, Basal Inferior, Basal Inferolateral, Apical Septal zuniga are hypokinetic. Normal wall motion in all other zuniga. RV: RV size is enlarged. RV systol ic function is depressed. LA: LA volume is moderately enlarg ed. RA: RA volume is enlarged. AO: Aortic root diameter is normal . CORTEZ: No pericardial effusion. AV: Bioprosthetic aortic valve. Mondragon rgical Prosthetic AV Doppler velocity index is 0.26 (taurus l>0.25). Aortic valve high velocity and pressure gradien t is likely due to patient prosthesis mismatch given nor mal AC and AC/ET. However there is increase in peak charlie ocities and cannot rule out concomitant structural valve degeneration. MV: Mild thickening of mitral leaf lets. Thickened and/or calcified chordae. Mild ale l regurgitation. PV: No structural PV abnormalities noted. A trace of pulmonic regurgitation. TV: No structural TV abnormalities noted. At least moderate tricuspid regurgitation Brothers: Diastolic dysfunction Grade II I (Severe): Impaired relaxation with restrictive L V filling pressures. Other: Suboptimal/insufficient TR jet . Estimated PA systolic pressure is at least 54 mmHg, assuming a mean RAP of 15 mmHg. MEASUREMENTS: 2D Parasternal [place] Ao Rtd 3.5 cm Inde x 1.8 cm/m2 LVPWd 1 cm IVSd 1 cm LA D s 4.5 cm LVIDd 5.5 cm Inde x 2.8 cm/m2 RWT 0.4 LVIDs 3.6 cm LV M ass 205.3 g (87-129) LV%fs 33.8 % LVM Index 104.8 g/m LA Sng Plane LA Area 26.2 cm (8.8-23.4) L A Vol 88.5 ml Index 45.2 ml/m2 LA LngAx 6.4 cm LVOT For Flow LVOT 2 cm LVOT Area 3.1 cm DOPPLER AV For Flow/ROMIE AV pkVel 417.5 cm/s (100-170) AV TVI 86.8 cm AV mnVel 306.6 cm/s AVpk AcRt 36061.4 cm/s AV pkPG 69.7 mmHg AV D eRt 1474.2 cm/s AV Mean G 44 mmHg AV A john 0.8 cm (3-5) AV ET 283 msec AV A C 79 msec (83-118) AV AC/ET 0.3 Aortic Valve AV DI 0.3 LVOT For Flow LVOT TVI 22.7 cm LVOT CI 2.6 l/m/m LVOT SV 71.4 ml LVOT pkPG 5.2 mmHg LVOTpkVel 114.3 cm/s LVOT mnPG 3.2 mmHg LVOT CO 5.1 l/min HR 71 bpm LVOT SVi 36.4 ml/m WALL MOTION: RESTING WALL MOTION: Basal Inferoseptal, Basal Inferior, Basa l Inferolateral, Apical Septal zuniga are hypokinetic. Normal wall mot ion in all other zuniga. Wall Index = 1.2 Signed 06/18/2019 11:01 AM Keo Clifford MD Performing Organization Address City/[facility]/Zipcode Phone Number [facility] [address] [place] [address] XR Abdomen 1 Vw Portable (06/17/2019 9:38 AM CDT) Specimen Narrative Performed At Examination: XR ABDOMEN 1 VW PORTABLE [facility] Clinical history: "IABP lower end" Comparison: None IMPRESSION: The bowel gas pattern is nonspecific. There is no evidence of acute disease within the imaged portions o f both lung bases. The imaged bones appear to be degenerative. Vascular c alcification is seen. Surgical clips are seen in the rig ht upper quadrant. Radiopaque density overlying the right kidney is compatible with a renal stone and measur es 5 mm. Bladder probe is seen. [id number] Procedure Note Interface, Radiology Results Incoming - 06/17/2019 9:51 AM CDT Examination: XR ABDOMEN 1 VW PORTABLE Clinical history: "IABP lower end" Comparison: None IMPRESSION: The bowel gas pattern is no nspecific. There is no evidence of acute disease within the imaged portions of both lung bases. The imaged bones appear to be degenerative. Vascular calcification is seen. Surgical clips are seen in the right upper quadrant. Radiopaque density overl sivan the right kidney is compatible with a renal stone and measures 5 mm. Bladder probe is seen. [id number] Performing Organization Address City/[facility]/Zipcode Phone Number [facility] [address] [place] [address] Total iron binding capacity (06/17/2019 3:30 AM CDT) Pathologist Sig nature Iron level 30 (L) 37 - 145 ug/dL [facility] Iron binding capacity 249 200 - 400 ug/dL [facility] % Saturation 12.0 (L) 15.0 - 38.0 % [facility] Specimen Plasma specimen Performing Organization Address City/[facility]/Zipcode Phone Number [facility] DEPARTMENT OF PATHOLOGY AND [address] [place] [address] [phone] [address] Vitamin D 25 hydroxy level (06/17/2019 3:30 AM CDT) Vitamin D, 20.3 (L) 30.0 - 150.0 [facility] 25-hydroxy Comment: ng/mL HOSPITAL This assay reports the sum of 25-hydroxy vitamin D3 an d 25-hydroxy vitamin D2. Reference range: 0-17 years: Deficiency: less than 20ng/mL Optimum level: greater than or equal to 20 ng/mL. 18 years and older: Deficiency: less than 20ng/mL Insufficiency: 20-29 ng/mL Optimum Level: 30-80 ng/mL The assay reportable range is 3.4 155.9 ng/mL. Level s higher than 150 ng/mL may be associated with toxicity. If toxicity is clinically suspected and the reported r esult is >155.9 ng/mL,contact lab for alternative methods to obtain a definitive level. If separate quantitation of 25-hydroxy vitamin D3 and 25-hydroxy vitamin D2 is needed, please contact lab for alternative methods. Specimen Blood Performing Organization Address City/State/Zipcode Phone Number [facility] DEPARTMENT OF PATHOLOGY AND [address] [place] [address] [phone] [address] Parathyroid hormone (06/17/2019 3:30 AM CDT) Pathologist Sig nature PTH 192 (H) 15 - 65 pg/mL [facility] Specimen Blood Performing Organization Address City/State/Zipcode Phone Number [facility] DEPARTMENT OF PATHOLOGY AND [address] [place] [address] [phone] [address] Venous blood gas (06/17/2019 3:30 AM CDT)Only the most recent of3 resultswithin the time period is included. Pathologist Sig nature pH, venous 7.36 7.32 - 7.42 [facility] pCO2, venous 48 45 - 51 mmHg [facility] pO2, venous 51 (H) 25 - 40 mmHg [facility] Base excess, venous 1 -2 - 2 meq/L [facility] O2 saturation, 81 (H) 40 - 70 % [facility] Bicarbonate, venous 26.5 21.0 - 28.0 [facility] mmol/L HOSPITAL Specimen Blood Performing Organization Address City/[facility] Phone Number [facility] DEPARTMENT OF PATHOLOGY AND [address] [place] [address] [phone] [address] Ferritin level (06/17/2019 3:30 AM CDT) Pathologist Sig nature Ferritin level 866 (H) 13 - 150 ng/mL [facility] Specimen Plasma specimen Performing Organization Address City/[facility] Phone Number [facility] DEPARTMENT OF PATHOLOGY AND [address] [place] [address] [phone] [address] Vancomycin level, random (06/17/2019 3:30 AM CDT) Pathologist Sig nature Vancomycin, random 15.9 ug/mL [facility] Specimen Serum Performing Organization Address [facility] Phone Number [facility] DEPARTMENT OF PATHOLOGY AND [address] [place] [address] [phone] [address] US Renal (06/16/2019 6:20 PM CDT) Specimen Narrative Performed At EXAMINATION: US RENAL [facility] CLINICAL HISTORY: Renal failure acut e (kidney injury) COMPARISON: None. TECHNIQUE: Ultrasound evaluation of th e kidneys and bladder. Findings: 1. The right kidney measures 9.4 x 4.4 x 4.3 cm. T he left kidney measures 9.8 x 4.8 x 4.3 cm. Evaluation of renal cor tical echogenicity is limited by body habitus. There does appear to be in creased echogenicity when compared to the liver. 2. No hydronephrosis or solid mass les ions. 9 mm cyst right kidney. 3. Bladder is collapsed with a Mckeon catheter. There is some mild ascitic fluid in the pelvis and possibly adjacent to the liver. IMPRESSION: 1.Increased renal cortical echogenicity suggests medical renal disease. 2.No hydronephrosis. 3.Additional findings as above. [facility]-[id number] Procedure Note Hm Interface, Radiology Results Incoming - 06/16/2019 9:55 PM CDT EXAMINATION: US RENAL CLINICAL HISTORY: Renal failure acute (kidney injury) COMPARISON: None. TECHNIQUE: Ultrasound evaluation of the kidneys and bladder. Findings: 1. The right kidney measures 9.4 x 4.4 x 4.3 cm. The left kidney measures 9.8 x 4.8 x 4.3 cm. Evaluation of renal cortical echogenicity is limited by body habitus. There does appear to be increased echogenicity when compared to the liver. 2. No hydronephrosis or solid mass lesi ons. 9 mm cyst right kidney. 3. Bladder is collapsed with a Mckeon ca theter. There is some mild ascitic fluid in the pelvis and possibly adjacent to the liver. IMPRESSION: 1.Increased renal cortical echogenicity suggests medical renal disease. 2.No hydronephrosis. 3.Additional findings as above. [facility]-[id number] Performing Organization Address City/[facility]/Zipcode Phone Number [facility] [address] [place] [phone] B natriuretic peptide (06/16/2019 5:30 PM CDT)Only the most recent of2 results within the time period is included. Pathologist Sig nature BNP 446 (H) 0 - 100 pg/mL [facility] Specimen Narrative Performed At _TROP__ results called to and read back by [facility] DEPARTM ENT OF PATHOLOGY AND GENOMIC SHELLAISE BAJWA/GENEVIEVE AT MEDICINE 06/16/2019 18:50 BY LM1. Performing Organization Address [facility] Phone Number [facility] DEPARTMENT OF PATHOLOGY AND [address] [place] [address] [phone] [address] Urea nitrogen, urine, random (06/16/2019 12:00 PM CDT) Pathologist Sig nature Urea nitrogen, urine, 508 mg/dL [facility] Specimen Urine Performing Organization Address City/[facility]/Zipcode Phone Number [facility] DEPARTMENT OF PATHOLOGY AND [address] [place] [address] [phone] [address] Sodium level, urine, random (06/16/2019 12:00 PM CDT) Pathologist Sig nature Sodium, urine, random 73 mEq/L [facility] Specimen Urine Performing Organization Address City/[facility]/Zipcode Phone Number [facility] DEPARTMENT OF PATHOLOGY AND [address] [place] [address] [phone] [address] Protein, urine, random (06/16/2019 12:00 PM CDT) Pathologist Sig nature Protein, urine random 15 mg/dL [facility] Specimen Urine Performing Organization Address City/[facility]/Zipcode Phone Number [facility] DEPARTMENT OF PATHOLOGY AND [address] [place] [address] [phone] [address] Creatinine level, urine, random (06/16/2019 12:00 PM CDT) Pathologist Sig nature Creatinine, urine, 90 mg/dL [facility] Specimen Urine Performing Organization Address City/[facility] Phone Number [facility] DEPARTMENT OF PATHOLOGY AND [address] [place] [address] [phone] [address] Anti Xa Apixaban (06/16/2019 10:40 AM CDT)Only the most recent of2 resultswithin the time period is included. Anti Xa, Apixaban 72 ng/mL [facility] Comment: HOSPITAL Therapeutic ranges not available, typical levels 2-4 h rs post 2.5 mg dose: 16-108 ng/mL; post 5 mg dose: 103-155 ng/ mL. Apixaban is approved for use without monitoring. Plasma apixaban levels depend on dose and sample timin g. This test has been modified from the mobile plant operators's in structions. The performance characteristics were determined by [facility] in a manner consistent with CLIA requirements. This test has not been cleared or a pproved by U.S. Food and Drug Administration. Specimen Blood Performing Organization Address City/[facility]/Zipcode Phone Number [facility] DEPARTMENT OF PATHOLOGY AND [address] [place] [address] [phone] [address] Prothrombin time with INR (06/16/2019 10:40 AM CDT)Only the most recent of3 resultswithin the time period is included. Prothrombin time 25.5 (H) 11.5 - 14.5 [facility] INR 2.4 [place] Comment: [facility] International Normalized Ratio (INR) is a [facility] monitoring tool for patients who are stable on oral anticoagulant therapy. An INR of 2.0-3.0 is suggested for deep vein thrombosis/pulmonary embolism. Specimen Blood Performing Organization Address City/[facility] Phone Number [facility] DEPARTMENT OF PATHOLOGY AND [address] [place] [phone] Arterial blood gas (06/16/2019 10:40 AM CDT)Only the most recent of2 results within the time period is included. Pathologist Sig [facility] pH, arterial 7.35 7.35 - 7.45 [facility] pCO2, arterial 40 35 - 45 mmHg [facility] pO2, arterial 133 (H) 80 - 90 mmHg [facility] Bicarbonate, 21.3 21.0 - 28.0 [facility] mmol/L [facility] Base excess, -4 (L) -2 - 2 mEq/L [facility] O2 saturation, 99 95 - 100 % [facility] Specimen Blood Performing Organization Address City/[facility] Phone Number [facility] DEPARTMENT OF PATHOLOGY AND [address] [place] [phone] Beta hydroxybutyrate (06/16/2019 1:30 AM CDT) Pathologist Sig [facility] Beta hydroxybutyrate 0.42 (H) 0.02 - 0.27 [facility] mmol/L [facility] Specimen Serum Performing Organization Address City/[facility] Phone Number [facility] DEPARTMENT OF PATHOLOGY AND [address] [place] [phone] IABP PLACEMENT (06/16/2019 1:28 AM CDT) Narrative Performed At Keo Delgado MD 06/16/2019 1: 30 AM IABP placement Date/Time: 06/16/2019 1:28 AM Performed by: Keo Delgado MD Authorized by: Keo Delgado MD Consent: Consent obtained: Verbal Consent given by: Patient Risks discussed: Pneumothorax, hemo rrhage, arrhythmia and local hematoma Alternatives discussed: Alternative treatment [place] protocol: Procedure explained and questions ans wered to patient or proxy's satisfaction: yes Relevant documents present and verifi ed: yes Test results available and properly l abeled: yes Imaging studies available: yes Required blood products, implants, de vices, and special equipment available: no Immediately prior to procedure a time out was called: yes Site/side marked: yes Patient identity confirmed: Verball y with patient and arm band Pre-procedure details: Indications: Ventricular assist Anesthesia (see MAR for exact dosages): Anesthesia method: Local infiltrati on Local anesthetic: Lidocaine 1% w/o epi Procedure details: Skin preparation: Skin prepped with 2% chlorhexadine Sterile barriers: All five maximal sterile barriers used - gloves, gown, cap, mask and large sterile sheet Hand hygiene: Hand hygiene performed prior to IABP insertion Location: right femoral Patient position: Flat Catheter size: 8 Fr Pre-procedure: Lankdmarks identified Ultrasound guidance: No Number of attempts: 1 Successful placement: Yes Post-procedure: Post-procedure: Line sutured and st erile dressing applied Assessment: Placement verified by x-ray, no pneum othorax on x-ray, free fluid flow and blood return through all parts Patient tolerance: Patient tolerated the procedure well with no immediate complications Cv echo 2d limited or follow up study (06/16/2019 12:52 AM CDT) Specimen Narrative Performed At [facility] Echo cardiography Report [address] [place] [address] Pat.Name: NASIR DAS.ID: [id number] .Date: 06/15/2019 Refer.MD: RUDY DANIEL M D Exam Time: 11:47:00 PM Study Type:Ro utine Echo Height: 67in Weight: 189lb BSA: 1.98 m2 Ag e: 1940,78Y Sex: FEMALE BP: 117/71 HR: 75 bpm Sonogr phr: Chelsea Sierra RDCS Pat. Stat.:Inpatient Room: QU8687-M Study Status:Final Echo Event ID:[id number] Order ID: [id number] Reason for Study:SOB, abn CXR, heart renée lure suspected History / Clinical:Coronary Artery Disea se, Diabetes, Hypertension, Valvular Heart Disease; Aortic Stenosis Procedures: Portable, Stat, 2D Echo,[place] rflow Doppler Limited Race: C SUMMARY: Limited study. LV size is mildly enlarged. LV EF is sev erely depressed. RV is not well visualized but appears di lated with depressed function. Biatrial dilation. Prosthetic aortic valve. Unable to comme nt on function. Moderate tricuspid regurgitation. Doppler assessment of the valves was not performed. FINDINGS: LV: LV size is mildly enlarged. LV EF is severely depressed. Global hypokinesis. Est imated EF is <20%. RV: RV is not well visualized but appears dil ated with depressed function. LA: LA volume is moderately enl arged. RA: RA volume is enlarged. AO: Aortic root diameter is nor mal. CORTEZ: No pericardial effusion. AV: Prosthetic aortic valve. MV: No structural MV abnormalit ies noted. Mild mitral regurgitation. Etiology of MR is secondary to LV dysfunction and remodel ing. PV: No structural PV abnormalit ies noted. TV: Dilated tricuspid annulus. Moderate tricuspid regurgitation Other: Estimated PA systolic pressu re is 18 mmHg + RAP. MEASUREMENTS: 2D Parasternal [place] Ao An 1.4 cm LVPWd 1 cm Ao Rtd 2.5 cm Index 1.3 cm/m2 LA Ds 4.8 cm IVSd 1 cm RWT 0.4 LVIDd 5.2 cm Index 2.6 cm/m2 LV Mass 199.7 g (87-129 ) LVIDs 4.9 cm LVM In dex 100.9 g/m LV%fs 5.1 % LVOT 1.9 cm LA Sng Plane LA Area 26.3 cm (8.8-23.4) LA Vol 87.3 ml Index 44.1 ml/m2 LA LngAx 6.9 cm LVOT LVOT Area 2.9 cm DOPPLER TV Pressure Gradient TV PkVel 214.9 cm/s TV PG 18.5 mmHg Signed 06/16/2019 01:16 AM Caterina Fallon MD Procedure Note Interface, Radiology Results In - 2018 1:16 AM CDT Echocardiography Report [address] [place] [address] Pat.Name: NASIR DAS D: [id number] .Date: 06/15/2019 Refer.MD: RUDY DANIEL MD Exam Time: 11:47:00 PM Study Type:Routine Echo Height: 67in Weigh t: 189lb BSA: 1.98 m2 Age: 1 1940,78Y Sex: FEMALE BP: 117/71 HR: 75 bpm Sonog rphr: Chelsea Sierra RDCS Pat. Stat.:Inpatient Room: [address] Study Status:Final Echo Event ID:[id number] Order ID: [id number] Reason for Study:SOB, abn CXR, heart renée lure suspected History / Clinical:Coronary Artery Disea se, Diabetes, Hypertension, Valvular Heart Disease; Aortic Stenosis Procedures: Portable, Stat, 2D Echo,[place] rflow Doppler Limited Race: C SUMMARY: Limited study. LV size is mildly enlarged. LV EF is sev erely depressed. RV is not well visualized but appears di lated with depressed function. Biatrial dilation. Prosthetic aortic valve. Unable to comme nt on function. Moderate tricuspid regurgitation. Doppler assessment of the valves was not performed. FINDINGS: LV: LV size is mildly enlarged. LV EF is severely depressed. Global hypokinesis. Estimated EF is <20%. RV: RV is not well visualized but appears dilated with depressed function. LA: LA volume is moderately enlarg ed. RA: RA volume is enlarged. AO: Aortic root diameter is normal . CORTEZ: No pericardial effusion. AV: Prosthetic aortic valve. MV: No structural MV abnormalities noted. Mild mitral regurgitation. Etiology of MR is secondary to LV dysfunction and remodeling. PV: No structural PV abnormalities noted. TV: Dilated tricuspid annulus. Mod erate tricuspid regurgitation Other: Estimated PA systolic pressure is 18 mmHg + RAP. MEASUREMENTS: 2D Parasternal [place] Ao An 1.4 cm LVPW d 1 cm Ao Rtd 2.5 cm Inde x 1.3 cm/m2 LA Ds 4.8 cm IVSd 1 cm RWT 0.4 LVIDd 5.2 cm Inde x 2.6 cm/m2 LV Mass 199.7 g (87-129) LVIDs 4.9 cm LVM Index 100.9 g/m LV%fs 5.1 % LVOT 1.9 cm LA Sng Plane LA Area 26.3 cm (8.8-23.4) L A Vol 87.3 ml Index 44.1 ml/m2 LA LngAx 6.9 cm LVOT LVOT Area 2.9 cm DOPPLER TV Pressure Gradient TV PkVel 214.9 cm/s TV P G 18.5 mmHg Signed 06/16/2019 01:16 AM Caterina Fallon MD Performing Organization Address City/State/Zipcode Phone Number [facility] [address] [place] [address] Arterial Line Insertion (06/15/2019 11:39 PM CDT) Narrative Performed At Aleida Sandhu PA 06/15/2019 1 1:41 PM Arterial Line Insertion Date/Time: 06/15/2019 11:40 PM Performed by: Aleida Sandhu PA Authorized by: Aleida Sandhu PA Indications: Indications: hemodynamic monitoring a nd multiple ABGs Pre-procedure details: Skin preparation: Alcohol Anesthesia (see MAR for exact dosages): Anesthesia method: Local infiltrati on Local anesthetic: Lidocaine 1% w/o epi Procedure details: Location: R radial Needle gauge: 20 G Placement technique: Ultrasound yenifer ded Number of attempts: 1 Transducer: waveform confirmed Post-procedure details: Post-procedure: Sterile dressing ap plied and sutured CMS: Normal Patient tolerance of procedure: Agnes erated well, no immediate complications Comments: Left side attempted but unable to pass wire. Hence switched to right side. Central Line Insertion (06/15/2019 11:37 PM CDT) Narrative Performed At Aleida Sandhu PA 06/16/2019 1 2:40 AM Central Line Insertion Performed by: Aleida Sandhu PA Authorized by: Aleida Sandhu PA Pre-procedure details: Hand hygiene: Hand hygiene performed prior to insertion Sterile barrier technique: All elemen ts of maximal sterile technique followed Skin preparation: 2% chlorhexidine Skin preparation agent: Skin preparation agent comp letely dried prior to procedure Anesthesia (see MAR for exact dosages): Anesthesia method: Local infiltrati on Local anesthetic: Lidocaine 1% w/o epi Procedure details: Catheter type: Triple lumen Catheter size: 7 Fr Catheter length (cm): 16 Catheter site: internal jugular vein Catheter Site Laterality: Right Patient position: Trendelenburg Landmarks identified: yes Ultrasound guidance: yes Sterile ultrasound techniques: Sterile gel and ster ile probe covers were used Number of attempts: 1 Successful placement: yes Post-procedure details: Post-procedure: Dressing applied an d line sutured Assessment: Blood return through all ports, no pn eumothorax on x-ray and placement verified by x-ray Patient tolerance of procedure: Agnes erated well, no immediate complications Blood culture, aerobic & anaerobic (06/15/2019 11:30 PM CDT)Only the most recent of2 resultswithin the time period is included. Blood culture No growth after 5 days of incubation. [facility] Comment: HOSPITAL Specimen Information Specimen Source: Blood Specimen Site: Radial, right Specimen Blood - Radial, right Performing Organization Address City/State/Zipcode Phone Number [facility] DEPARTMENT OF PATHOLOGY AND [address] [place] [address] [place] [phone] Hemoglobin A1c (06/15/2019 11:25 PM CDT)Only the most recent of2 resultswithin the time period is included. Hemoglobin A1C 10.3 (H) 4.0 - 5.6 % [facility] Comment: HOSPITAL HbA1c cutoffs for diagnosing diabetes: 4.0% - 5.6% = normal 5.7% - 6.4% = increased risk for diabetes (prediabetes ) >=6.5% = diabetes Goals for glycemic control (ADA 2016) < 7.0% Target for non adults with diabetes. More or less stringent targets may be appropriate for individual patients. <7.5% Target for Children and adolescents with type 1 diabetes. Specimen Blood Performing Organization Address City/State/Zipcode Phone Number [facility] DEPARTMENT OF PATHOLOGY AND [address] [place] [address] [place] [phone] Lipid panel (06/15/2019 11:25 PM CDT)Only the most recent of2 resultswithin the time period is included. Cholesterol 80 <200 mg/dL [facility] Triglycerides 107 <150 mg/dL [facility] HDL cholesterol 26 (L) >40 mg/dL [facility] LDL cholesterol 32Comment: Result <100 mg/dL [place] obtained by direct [facility] LDL measurement [facility] Lipid panel [facility] interpretation Comment: [facility] Total Cholesterol (mg/dL) HOSPIT [place] <200 Desirable 200-239 Borderline-high >=240 High Triglycerides (mg/dL) <150 Normal 150-199 Borderline-high 200-499 High >=500 Very high HDL Cholesterol (mg/dL) <40 Low (male) <40 Low (female) LDL Cholesterol (mg/dL) <100 Optimal 100-129 Near or above optimal 130-159 Borderline-high 160-189 High >=190 Very high Risk Catergories that modify LDL goals. Risk Catergories LDL goal (mg/d L) CHD and CHD risk equivalent <100 (10-year risk >20%) Multiple (2+) risk factors <130 (10-year risk =<20%) 0-1 risk factors <160 (<10-year risk) Defining levels of lipids in metabolic syndrome Triglycerides >=150 mg/dL HDL Cholesterol Men <40 mg /dL Women <40 mg/ dL Non-HDL cholesterol is a second target for therapy in persons with high triglycerides (>=200 mg/dL) Specimen Plasma specimen Performing Organization Address [facility] Phone Number [facility] DE[facility] OF [facility] AND [address] [place] [address] [phone] [address] Ionized calcium, arterial (06/15/2019 9:30 PM CDT) Pathologist Sig nature Ionized calcium, 1.17 1.11 - 1.32 [facility] arterial mmol/L HOSPITAL Specimen Blood Performing Organization Address [facility] [place] Phone Number [facility] DEPARTMENT OF PATHOLOGY AND [address] [place] [address] [phone] [address] XR Chest 2 Vw (06/15/2019 8:05 PM CDT) Specimen Narrative Performed At EXAMINATION: XR CHEST 2 VW [facility] CLINICAL HISTORY: Shortness of breath COMPARISON: October 16, 2013 . IMPRESSION: 1.Heart size is enlarged. Median sternotomy wires over lie the midline. A unipolar epicardial pacemaker is in stable positioning relative to March 16, 2014. 2.Left upper lobe scarring. 3.Osseous structures are demineralized. RM-PRARSA Procedure Note Hm Interface, Radiology Results Incoming - 06/15/2019 8:45 PM CDT EXAMINATION: XR CHEST 2 VW CLINICAL HISTORY: Shortness of breath COMPARISON: October 16, 2013 . IMPRESSION: 1.Heart size is enlarged. Median sternot laurita wires overlie the midline. A unipolar epicardial pacemaker is in stable positioning relative to March 16, 2014. 2.Left upper lobe scarring. 3.Osseous structures are demineralized. HMRM-PRARSA Performing Organization Address [facility] Phone Number [facility] [address] [place] [phone] C difficile toxin (06/15/2019 2:00 PM CDT) Clostridium No Clostridium difficle toxin present ERAN MARTIN CHRISTIAN difficile toxin Comment: HOSPITAL Specimen Information Specimen Source: Stool Specimen Site: Nonpreserved Specimen Stool - Nonpreserved Performing Organization Address [facility] Phone Number [facility] DEPARTMENT OF PATHOLOGY AND [address] [place] [phone] [place] [phone] Thyroid stimulating hormone (06/15/2019 5:40 AM CDT) Pathologist Sig nature TSH 3.06 0.27 - 4.20 uIU/mL [facility] ITAL Specimen Plasma specimen Performing Organization Address [facility] Phone Number [facility] DEPARTMENT OF PATHOLOGY AND [address] [place] [phone] [place] [phone] T4, free (06/15/2019 5:40 AM CDT) Pathologist Sig [facility] T4, free 1.4 0.9 - 1.7 ng/dL [facility] L Specimen Plasma specimen Performing Organization Address [facility] [place] Phone Number [facility] DEPARTMENT OF PATHOLOGY AND [address] [place] [address] [place] [phone] Gram stain (06/15/2019 4:58 AM CDT) Gram stain result Occasional WBC's [facility] Few Gram positive cocci in pairs HOSPITAL Few Gram negative rods Comment: Specimen Information Specimen Source: Urine Specimen Site: Clean catch Specimen Urine Performing Organization Address [facility] [place] Phone Number [facility] DEPARTMENT OF PATHOLOGY AND [address] [place] [phone] [place] [phone] Urine culture (06/15/2019 4:58 AM CDT) Pathologist [facility] Urine culture Mixed chinyere 10-5 col/cc [facility] T isolate Comment: HOSPITAL Specimen Information Specimen Source: Urine Specimen Site: Clean catch Specimen Urine Performing Organization Address [facility] Phone Number [facility] DEPARTMENT OF PATHOLOGY AND [address] [place] [address] [place] [phone] Urinalysis screen and microscopy, with reflex to culture (06/15/2019 3:50 AM CDT) Specimen site Clean catch [facility] Color, UA Dark Yellow [facility] Appearance, UA Hazy [facility] Specific gravity, UA 1.016 1.001 - 1.035 [facility] pH, UA 5.0 5.0 - 8.5 [facility] Protein, UA 1+ (A) Negative [facility] Glucose, UA Negative Negative [facility] Ketones, UA Negative Negative [facility] Bilirubin, UA Negative Negative [facility] Blood, UA Moderate (A) Negative [facility] Nitrite, UA Negative Negative [facility] Urobilinogen, UA <2.0 <2.0 [facility] Leukocyte esterase, Moderate (A) Negative [facility] Epithelial cells, UA 1 /HPF [facility] WBC, UA 26 (H) 0 - 4 /HPF [facility] RBC, UA 2 0 - 5 /HPF [facility] Bacteria, UA Few None seen [facility] WBC clumps, UA Few (A) [facility] Yeast, UA None seen [facility] Yeast with None seen [facility] pseudohyphae, HOSPITAL Hyaline casts, UA 9 /LPF [facility] Specimen Urine Performing Organization Address City/State/Zipcode Phone Number [facility] DEPARTMENT OF PATHOLOGY AND [address] [place], [place] [address] [facility] [address] [address] after 02/27/2019 Insurance Payer Benefit Plan / Subscriber ID Effective Dates Phone Addre ss Type Group HUMANA MEDICARE HUMANA MEDICARE xxxxxxxxx 2017-Present PPO PPO/PFFS/ERS [facility] Advance Directives For more information, please contact: [phone] Type Date Recorded 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
--- NOTE | 2020-02-28 17:32 | RAD REPORT ---
EXAM DESCRIPTION: CT - Head Brain Wo Cont - 02/28/2020 2:29 pm CLINICAL HISTORY: Dizziness COMPARISON: 2018 TECHNIQUE: Computed axial tomography of the head was obtained. IV contrast was not requested. All CT scans are performed using dose optimization technique as appropriate and may include automated exposure control or mA/KV adjustment according to patient size. FINDINGS: An intracranial bleed is not seen . The ventricles are normal in caliber. No extra-axial fluid collection is noted. Mild low-density areas within periventricular, deep and subcortical white matter likely represent isc hemic changes secondary to small vessel disease. 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 Small lacunar infarct right caudate Stable right scalp lesion Fluid within the sinuses/ mastoids is not seen. IMPRESSION: No acute intracranial abnormality is seen. If patient's symptoms persist MRI of the bra in would be recommended.
--- NOTE | 2020-02-28 19:04 | ER ---
Nurse's Notes [facility] Name: Lilian Avila Age: 79 yrs Sex: Female : 1940 Arrival Date: 02/28/2020 Time: 11:06 Bed 17 Private MD: Efra Dye F Diagnosis: Dizziness and giddiness;Vertiginous syndromes in diseases classified elsewhere Presentation: 02/27 11:11 Chief complaint: Patient states: Dizziness x 4 weeks which is worse with walking. Dr. freddy Dye prescribed prednisone which does not seem to be helping. Coronavirus screen: Proceed with normal triage. Patient denies a cough. Patient denies shortness of breath or difficulty breathing. Patient denies measured and/or subjective temperature greater than 100.4F prior to today's visit. Patient denies travel on a cruise ship or to a country the [facility] currently lists as an affected area. Patient denies contact with known and/or suspected case of COVID-19. Ebola Screen: Patient denies exposure to infectious person. Patient denies travel to an Ebola-affected area in the 21 days before illness onset. Initial Sepsis Screen: Does the patient meet any 2 criteria? No. Patient's initial sepsis screen is negative. Does the patient have a suspected source of infection? No. Patient's initial sepsis screen is negative. Risk Assessment: Do you want to hurt yourself or someone else? Patient reports no desire to harm self or others. Onset of symptoms was January 2020. 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 - Social history:: Smoking status: Patient denies any tobacco usage or history of. Screenin:15 Abuse screen: Denies threats or abuse. Denies injuries from another. Nutritional ca1 screening: No deficits noted. Tuberculosis screening: No symptoms or risk factors identified. Fall Risk Ambulatory Aid- Crutches/Cane/Walker (15 pts). Gait- Impaired (20 pts.). Total Palmer Fall Scale indicates Low Risk Score (25-44 pts). Fall prevention measures have been instituted. Side Rails Up X 2 As available Patient and Family Educated on Fall Prevention Program and strategies. Assessment: 12:15 General: Appears in no apparent distress. comfortable, Behavior is calm, cooperative, ca1 appropriate for age. Pain: Denies pain. Neuro: Level of Consciousness is awake, alert, obeys commands, Oriented to person, place, time, situation, Appropriate for age Labor Relations Supervisor are equal bilaterally Moves all extremities. Speech is normal, Facial symmetry appears normal, Pupils are PERRLA, Reports dizziness, since 6 weeks ago. Cardiovascular: Heart tones S1 S2 present Capillary refill < 3 seconds Patient's skin is warm and dry. Rhythm is atrial fibrillation. Respiratory: Airway is patent Respiratory effort is even, unlabored, Respiratory pattern is regular, symmetrical, Breath sounds are clear bilaterally. GI: Abdomen is flat, non-distended, Bowel sounds present X 4 quads. Abd is soft and non tender X 4 quads. : No signs and/or symptoms were reported regarding the genitourinary system. EENT: No signs and/or symptoms were reported regarding the EENT system. Derm: Skin is intact, is healthy with good turgor, Skin is pink, warm \T\ dry. Musculoskeletal: Circulation, motion, and sensation intact. Capillary refill < 3 seconds. 13:06 Reassessment: [phone]. Duyen. Reassessment: Patient appears in no apparent distress ca1 at this time. Patient and/or family updated on plan of care and expected duration. Pain level reassessed. Patient is alert, oriented x 3, equal unlabored respirations, skin warm/dry/pink. 14:02 Reassessment: Patient appears in no apparent distress at this time. Patient and/or ca1 family updated on plan of care and expected duration. Pain level reassessed. Patient is alert, oriented x 3, equal unlabored respirations, skin warm/dry/pink. 15:08 Reassessment: Patient appears in no apparent distress at this time. Patient and/or ca1 family updated on plan of care and expected duration. Pain level reassessed. Patient is alert, oriented x 3, equal unlabored respirations, skin warm/dry/pink. 16:00 Reassessment: Patient appears in no apparent distress at this time. Patient is alert, ca1 oriented x 3, equal unlabored respirations, skin warm/dry/pink. 17:00 Reassessment: Patient appears in no apparent distress at this time. Patient and/or ca1 family updated on plan of care and expected duration. Pain level reassessed. Patient is alert, oriented x 3, equal unlabored respirations, skin warm/dry/pink. 18:02 Reassessment: Patient appears in no apparent distress at this time. Patient is alert, ca1 oriented x 3, equal unlabored respirations, skin warm/dry/pink. Vital Signs: 11:11 BP 121 / 48; Pulse 48; Resp 16; Temp 98.6(TE); Pulse Ox 98% on R/A; Weight 74.39 kg; ss Height 5 ft. 7 in. (170.18 cm); Pain 0/10; 12:14 BP 156 / 96; Pulse 48; Resp 16; Temp 97.9; Pulse Ox 94% on R/A; Weight 72.57 kg; Height ca1 5 ft. 7 in. (170.18 cm); 12:54 BP 156 / 50; Pulse 55; Resp 18 S; Pulse Ox 93% on R/A; ca1 14:02 BP 130 / 58 LA Supine (auto/reg); Pulse 70; Resp 18; Pulse Ox 95% on R/A; dh4 14:02 BP 150 / 59 LA Sitting (auto/reg); Pulse 50; Resp 15; Pulse Ox 94% on R/A; dh4 14:02 BP 147 / 58 LA Standing (auto/reg); Pulse 63; Resp 17; Pulse Ox 94% on R/A; dh4 15:10 BP 147 / 54; Pulse 46; Resp 18 S; Pulse Ox 94% on R/A; dh4 16:26 BP 123 / 92; Pulse 65; Resp 18; Pulse Ox 97% on R/A; dh4 17:25 BP 147 / 79; Pulse 65; Resp 17 S; Pulse Ox 94% on R/A; ca1 12:14 Body Mass Index 25.06 (72.57 kg, 170.18 cm) ca1 ED Course: 11:06 Patient arrived in ED. mr 11:06 Efra Dye MD is Private Physician. mr 11:13 Triage completed. ss 11:13 Arm band placed on right wrist. ss 12:13 Suzi Galicia, RN is Primary Nurse. ca1 12:15 Patient has correct armband on for positive identification. Bed in low position. Call ca1 light in reach. Side rails up X2. regrader on. Pulse ox on. NIBP on. Warm blanket given. 13:02 Alireza Saul MD is Attending Physician. kdr 13:17 No provider procedures requiring assistance completed. Initial lab(s) drawn, by me, by [facility] personnel. Inserted saline lock: 20 gauge in right antecubital area, using aseptic technique. Blood collected. 14:28 CT Head Brain wo Cont In Process Unspecified. EDMS 19:02 Efra Dye MD is Referral Physician. kdr 19:17 IV discontinued, intact, bleeding controlled, No redness/swelling at site. Pressure mg2 dressing applied. Administered Medications: No medications were administered Outcome: 19:03 Discharge ordered by . kdr 19:42 Discharged to home via wheelchair. mg2 19:42 Condition: stable 19:42 Discharge instructions given to patient, Instructed on discharge instructions, follow up and referral plans. medication usage, Demonstrated understanding of instructions, follow-up care, medications, Prescriptions given X 1. 19:43 Patient left the ED. mg2 Signatures: Dispatcher [employer] EDME Alireza Saul MD [facility] oLurdes Segovia RN RN Markell Senior RN RN mg2 Suzi Galicia RN RN [facility] Steve Benitez 4 Corrections: (The following items were deleted from the chart) 14:48 12:15 Cardiovascular: Heart tones S1 S2 present Capillary refill < 3 seconds Patient's ca1 skin is warm and dry. Rhythm is sinus bradycardia ca1
--- NOTE | 2020-02-28 19:04 | EDPHYS ---
Physician Documentation [facility] Name: Lilian Avila Age: 79 yrs Sex: Female : 1940 Arrival Date: 02/28/2020 Time: 11:06 Bed 17 Private MD: Efra Dye F ED Physician Alireza Saul HPI: 02/28 17:48 This 79 yrs old Female presents to ER via Wheelchair with complaints of kdr Vertigo. 17:48 The patient presents with dizziness, generalized weakness, feeling off balance, kdr vertigo. Onset: The symptoms/episode began/occurred gradually, 4 week(s) ago. Context: occurred at home, occurred while the patient was Unknown. Modifying factors: The symptoms are alleviated by nothing, the symptoms are aggravated by standing up, changing position. Associated signs and symptoms: The patient has no apparent associated signs or symptoms. Severity of symptoms: At their worst the symptoms were mild in the emergency department the symptoms are unchanged. Patient's baseline: Neuro: alert and fully oriented, Motor: no deficits, Ambulation: walks without assistance, Speech: normal. The patient has experienced similar episodes in the past, a few times. The patient has been recently seen by a physician: Dr. Dye 1 week(s) ago. 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 - Social history:: Smoking status: Patient denies any tobacco usage or history of. ROS: 02/28 17:48 Constitutional: Negative for fever, chills, and weight loss, Eyes: Negative for injury, kdr pain, redness, and discharge, ENT: Negative for injury, pain, and discharge, Neck: Negative for injury, pain, and swelling, Cardiovascular: Negative for chest pain, palpitations, and edema, Respiratory: Negative for shortness of breath, cough, wheezing, and pleuritic chest pain, Abdomen/GI: Negative for abdominal pain, nausea, vomiting, diarrhea, and constipation, Back: Negative for injury and pain, : Negative for injury, bleeding, discharge, and swelling, MS/Extremity: Negative for injury and deformity, Skin: Negative for injury, rash, and discoloration, Psych: Negative for depression, anxiety, suicide ideation, homicidal ideation, and hallucinations, Allergy/Immunology: Negative for hives, rash, and allergies, Endocrine: Negative for neck swelling, polydipsia, polyuria, polyphagia, and marked weight changes, Hematologic/Lymphatic: Negative for swollen nodes, abnormal bleeding, and unusual bruising. Neuro: Positive for dizziness, weakness. Exam: 17:48 Constitutional: This is a well developed, well nourished patient who is awake, alert, kdr and in no acute distress. Head/Face: Normocephalic, atraumatic. Eyes: Pupils equal round and reactive to light, extra-ocular motions intact. Lids and lashes normal. Conjunctiva and sclera are non-icteric and not injected. Cornea within normal limits. Periorbital areas with no swelling, redness, or edema. Neck: Trachea midline, no thyromegaly or masses palpated, and no cervical lymphadenopathy. Supple, full range of motion without nuchal rigidity, or vertebral point tenderness. No Meningismus. Chest/axilla: Normal chest wall appearance and motion. Nontender with no deformity. No lesions are appreciated. Cardiovascular: Regular rate and rhythm with a normal S1 and S2. No gallops, murmurs, or rubs. Normal PMI, no JVD. No pulse deficits. Respiratory: Lungs have equal breath sounds bilaterally, clear to auscultation and percussion. No rales, rhonchi or wheezes noted. No increased work of breathing, no retractions or nasal flaring. Abdomen/GI: Soft, non-tender, with normal bowel sounds. No distension or tympany. No guarding or rebound. No evidence of tenderness throughout. Back: No spinal tenderness. No costovertebral tenderness. Full range of motion. Skin: Warm, dry with normal turgor. Normal color with no rashes, no lesions, and no evidence of cellulitis. MS/ Extremity: Pulses equal, no cyanosis. Neurovascular intact. Full, normal range of motion. Neuro: Awake and alert, GCS 15, oriented to person, place, time, and situation. Cranial nerves II-XII grossly intact. Motor strength 5/5 in all extremities. Sensory grossly intact. Cerebellar exam normal. Normal gait. Psych: Awake, alert, with orientation to person, place and time. Behavior, mood, and affect are within normal limits. Vital Signs: 02/27 11:11 BP 121 / 48; Pulse 48; Resp 16; Temp 98.6(TE); Pulse Ox 98% on R/A; Weight 74.39 kg; ss Height 5 ft. 7 in. (170.18 cm); Pain 0/10; 12:14 BP 156 / 96; Pulse 48; Resp 16; Temp 97.9; Pulse Ox 94% on R/A; Weight 72.57 kg; Height ca1 5 ft. 7 in. (170.18 cm); 12:54 BP 156 / 50; Pulse 55; Resp 18 S; Pulse Ox 93% on R/A; ca1 14:02 BP 130 / 58 LA Supine (auto/reg); Pulse 70; Resp 18; Pulse Ox 95% on R/A; dh4 14:02 BP 150 / 59 LA Sitting (auto/reg); Pulse 50; Resp 15; Pulse Ox 94% on R/A; dh4 14:02 BP 147 / 58 LA Standing (auto/reg); Pulse 63; Resp 17; Pulse Ox 94% on R/A; dh4 15:10 BP 147 / 54; Pulse 46; Resp 18 S; Pulse Ox 94% on R/A; dh4 16:26 BP 123 / 92; Pulse 65; Resp 18; Pulse Ox 97% on R/A; dh4 17:25 BP 147 / 79; Pulse 65; Resp 17 S; Pulse Ox 94% on R/A; ca1 12:14 Body Mass Index 25.06 (72.57 kg, 170.18 cm) ca1 MDM: 19:03 Patient medically screened. kdr 02/28 17:48 Data reviewed: vital signs, nurses notes, lab test result(s), EKG, radiologic studies. kdr Counseling: I had a detailed discussion with the patient and/or guardian regarding: the historical points, exam findings, and any diagnostic results supporting the discharge/admit diagnosis, lab results, radiology results, the need for outpatient follow up. 02/27 13:08 Order name: Basic Metabolic Panel; Complete Time: 14:37 ca1 02/27 13:08 Order name: CBC with Diff; Complete Time: 14:37 ca1 02/27 13:08 Order name: LFT's; Complete Time: 14:37 ca1 02/27 13:08 Order name: Magnesium; Complete Time: 14:37 ca1 02/27 13:08 Order name: NT PRO-BNP; Complete Time: 14:37 ca1 02/27 13:08 Order name: PT-INR; Complete Time: 14:37 ca1 02/27 13:08 Order name: Troponin (emerg Dept Use Only); Complete Time: 14:37 ca1 02/27 13:08 Order name: EKG; Complete Time: 13:10 ca1 02/27 13:08 Order name: Cardiac monitoring; Complete Time: 13:20 ca1 02/27 13:08 Order name: EKG - Nurse/Tech; Complete Time: 13:20 ca1 02/27 13:08 Order name: IV Saline Lock; Complete Time: 13:20 ca1 02/27 13:08 Order name: Labs collected and sent; Complete Time: 13:20 ca1 02/27 13:48 Order name: CT Head Brain wo Cont; Complete Time: 17:44 kdr 02/27 13:08 Order name: O2 Per Protocol; Complete Time: 13:20 ca1 02/27 13:08 Order name: O2 Sat Monitoring; Complete Time: 13:20 ca1 02/27 13:48 Order name: Orthostatic Blood Pressure; Complete Time: 14:06 kdr Administered Medications: No medications were administered Disposition: 02/28/20 19:03 Discharged to Home. 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 - Condition is Stable. - Discharge Instructions: Vertigo, [id number], Dizziness, [id number]. - Prescriptions for Meclizine 25 mg Oral Tablet - take 1 tablet by ORAL route every 8 hours As needed; 30 tablet. - Medication Reconciliation Form, Thank You Letter form. - Follow up: Efra Dye MD; When: 2 - 3 days; Reason: If symptoms return, Further diagnostic work-up, Recheck today's complaints, Continuance of care, Re-evaluation by your physician. - Problem is an ongoing problem. - Symptoms have improved. Signatures: Dispatcher [employer] EDCA Alireza Saul MD MD kdr Smirch, Shelby, RN RN Markell Senior RN RN mg2 Suzi Galicia RN RN ca1 Corrections: (The following items were deleted from the chart) 02/27 19:43 19:03 02/28/2020 19:03 Discharged to Home. Impression: Dizziness and giddiness; mg2 Vertiginous syndromes in diseases classified elsewhere. Condition is Stable. Forms are Medication Reconciliation Form, Thank You Letter, Antibiotic Education, Prescription Opioid Use. Follow up: Efra Dye; When: 2 - 3 days; Reason: If symptoms return, Further diagnostic work-up, Recheck today's complaints, Continuance of care, Re-evaluation by your physician. Problem is an ongoing problem. Symptoms have improved. kdr
[2020-02-28 19:51] VITALS: TEMP 97.9
[2020-02-28 19:56] VITALS: BP 147/58; O2SAT 94
--- NOTE | 2020-02-29 06:36 | EKG ---
Test Date: 2020-02-28 Test Time: 12:42:07 Acrobatic Rigger: PAUL MEASUREMENT RESULTS: Intervals: Rate: 60 GA: QRSD: 116 QT: 540 QTc: 540 [place]: P: GA: QRS: -3 T: 75 INTERPRETIVE STATEMENTS: Atrial fibrillation Anteroseptal infarct, age undetermined Prolonged QT Abnormal ECG Compared to ECG 06/14/2019 14:34:20 Prolonged QT interval now present Sinus tachycardia no longer present Myocardial infarct finding still present Electronically Signed On 02-29-20 06:34:49 CDT by Jackson Cuellar
== END 2020-02-28 19:43 | disposition home or self-care (01) ==
LOC: ER 10:59
DX: R53.1 Weakness (principal); H82.9 Vertiginous syndromes in diseases classified elsewhere, unspecified ear; I10 Essential (primary) hypertension; Z95.1 Presence of aortocoronary bypass graft; Z88.5 Allergy status to narcotic agent; I50.9 Heart failure, unspecified
CPT/HCPCS: 93005; 85025; 80048; 36415; 83735; 85610; 80076; 84484; 83880; 70450; 99284; J2405

== ENCOUNTER 2020-03-29 11:00 | Inpatient (IN) | payer OTHER ==
[2020-03-29] MEDS ORDERED: ONDANSETRON 4 MG/2 ML VIAL ONE ×2 (11:56→17:44)
[2020-03-29] MEDS ORDERED: MORPHINE 4 MG/ML SYR ONE (11:56)
--- NOTE | 2020-03-29 12:02 | RAD REPORT ---
EXAM DESCRIPTION: RAD - Pelvis - 03/29/2020 11:45 am CLINICAL HISTORY: Pelvic pain status post injury FINDINGS: Subcapital/proximal cervical femoral fracture with angulation present at the fracture site . Mild to moderate displacement of fracture fragments. No dislocation
--- NOTE | 2020-03-29 12:03 | RAD REPORT ---
EXAM DESCRIPTION: RAD - Knee Right 2 View - 03/29/2020 11:44 am CLINICAL HISTORY: Right knee pain FINDINGS: No fracture or dislocation is seen. Right knee prosthesis is in good position without evidence of loosening
--- NOTE | 2020-03-29 12:04 | RAD REPORT ---
EXAM DESCRIPTION: RAD - Hip Right 2 View - 03/29/2020 11:44 am CLINICAL HISTORY: Right hip pain FINDINGS: Subcapital/proximal cervical femoral fracture with angulation present at the fracture site. Mild to moderate displacement of fracture fragments. No dislocation
[2020-03-29 12:05] LABS: Absolute Lymphocytes (CBC) 0.7 K/uL (0.7-4.9); Basophils % 0.7 % (0-1.3); Hematocrit 34.4 % (36.0-45.0); Lymphocytes % 9.4 % (15.3-44.8); MPV 10.6 fL (7.6-11.3); RBC Red Blood Cell Count 4.01 M/uL (3.86-4.86)
--- NOTE | 2020-03-29 12:05 | RAD REPORT ---
EXAM DESCRIPTION: Samir Single View03/29/2020 11:45 am CLINICAL HISTORY: Preop for hip fracture surgery COMPARISON: 2019 FINDINGS: The lungs appear clear of acute infiltrate. The heart is moderately enlarged. Postsurgica l changes involve the chest. Battery and lead overlie the chest IMPRESSION: No acute abnormalities displayed
[2020-03-29] MEDS ORDERED: FENTANYL CITR 100 MCG/2 ML ONE ×2 (12:10→14:57)
[2020-03-29 12:11] LABS: Protime INR 1.28
[2020-03-29 12:26] LABS: Potassium 5.6 mmol/L (3.5-5.1)
--- NOTE | 2020-03-29 12:41 | ER ---
Nurse's Notes [facility] Name: Lilian Avila Age: 79 yrs Sex: Female : 1940 Arrival Date: 03/29/2020 Time: 11:15 Bed 16 Private MD: Diagnosis: Right hip fracture, closed Presentation: 03/29 11:05 Chief complaint: EMS states: Right hip pain after mechanical fall from standing. Right hb leg shortened and externally rotated, reports pain 10/10. 20g RAC. Care prior to arrival: None. Mechanism of Injury: Fall from standing position. Trauma event details: Injury occurred in the [facility], Injury occurred: at home. Injury occurred: March 29, 2020. 11:05 Acuity: JARRETT 2 hb 11:05 Method Of Arrival: EMS: [facility] hb 11:20 Coronavirus screen: Proceed with normal triage. Ebola Screen: No symptoms or risks hb identified at this time. Initial Sepsis Screen: Does the patient meet any 2 criteria? No. Patient's initial sepsis screen is negative. Does the patient have a suspected source of infection? No. Patient's initial sepsis screen is negative. Risk Assessment: Do you want to hurt yourself or someone else? Patient reports no desire to harm self or others. Onset of symptoms was March 29, 2020. Trauma Activation: Alert Physician: ED Physician; Name: ; Notified At: ; Arrived At: Physician: General Surgeon; Name: ; Notified At: ; Arrived At: Physician: Radiology; Name: ; Notified At: ; Arrived At: Physician: Respiratory; Name: ; Notified At: ; Arrived At: Physician: Lab; Name: ; Notified At: ; Arrived At: Historical: - Allergies: 11:22 Codeine (Hallucinations/agitation); hb 11:22 Morphine (Hallucinations/agitation); hb 11:22 PENICILLINS (rash); hb - Home Meds: 11:22 amiodarone 200 mg Oral tab [Active]; atorvastatin 80 mg Oral tab [Active]; clopidogrel hb 75 mg Oral tab 1 tab once daily [Active]; fluoxetine 20 mg Oral cap 1 cap [Active]; furosemide 40 mg Oral tab [Active]; gabapentin 300 mg Oral cap [Active]; Januvia 50 mg Oral tab [Active]; pantoprazole 40 mg Oral TbEC [Active]; primidone 50 mg Oral tab [Active]; spironolactone 50 mg Oral tab [Active]; - PMHx: 11:22 CHF; Diabetes - NIDDM; Hypertension; Myocardial infarction; hb - 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 - Social history:: Smoking status: Patient denies any tobacco usage or history of. Screenin:07 Abuse screen: Denies threats or abuse. Denies injuries from another. Tuberculosis hb screening: No symptoms or risk factors identified. 11:22 Nutritional screening: No deficits noted. Fall Risk Total Palmer Fall Scale indicates hb High Risk Score (45 or more points). Fall prevention measures have been instituted. Side Rails Up X 2 Frequent Obs/Assessments Occuring As available patient and family educated on Fall Prevention Program and Strategies. Primary Survey: 11:07 NO uncontrolled hemorrhage observed. A: The patient is alert. Breathing/Chest: hb Respiratory pattern: regular, Respiratory effort: spontaneous, unlabored, Chest inspection: symmetrical rise and fall of the chest. Circulation: Pulses: palpable . Skin color: pink. Disability Alert. Exposure/Environment: There is no evidence of uncontrolled external bleeding. A warming method has been applied: A warm blanket has been provided to the patient. 13:47 Reassessment Airway Airway Patent Oxygen No O2 Breathing/Chest Respiratory pattern ph Regular Respiratory effort Spontaneous Unlabored Chest inspection Symmetrical Circulation Color [place] Temperature Warm Dry Disability Alert. Secondary Survey: 11:07 HEENT: No deficits noted. Gastrointestinal: No deficits noted. : No deficits noted. hb No signs and/or symptoms were reported regarding the genitourinary system. Musculoskeletal: Reports right hip pain 07/01. Assessment: 11:07 General: Appears in no apparent distress. uncomfortable, Behavior is calm, cooperative. hb Pain: Pain currently is 10 out of 10 on a pain scale. Neuro: Level of Consciousness is awake, alert, obeys commands, Oriented to person, place, time, situation. EENT: No signs and/or symptoms were reported regarding the EENT system. Cardiovascular: Capillary refill < 3 seconds Patient's skin is warm and dry. Pulses are 3+ in right dorsalis pedis artery. Respiratory: Airway is patent Respiratory effort is even, unlabored, Respiratory pattern is regular, symmetrical. GI: No signs and/or symptoms were reported involving the gastrointestinal system. : No signs and/or symptoms were reported regarding the genitourinary system. Derm: Skin is pink, warm \T\ dry. Musculoskeletal: right leg shortened and externally rotated, RPP 3+. 12:00 Reassessment: Patient appears in no apparent distress at this time. Patient and/or ph family updated on plan of care and expected duration. Pain level reassessed. Patient is alert, oriented x 3, equal unlabored respirations, skin warm/dry/pink. Pt medicated for pain, see MAR, resting quietly, VSS. Vital Signs: 11:07 BP 149 / 60; Pulse 60; Resp 16; Temp 97.9; Pulse Ox 98% on R/A; Weight 72.57 kg; Height hb 5 ft. 6 in. (167.64 cm); Pain 10/10; 12:30 BP 152 / 78; Pulse 62; Resp 16; Pulse Ox 96% on R/A; ph 13:45 BP 159 / 58; Pulse 56; Resp 18; Pulse Ox 95% on R/A; ph 14:30 BP 149 / 65; Pulse 65; Resp 18; Pulse Ox 98% on R/A; ph 15:30 BP 153 / 88; Pulse 71; Resp 20; Temp 97.8; Pulse Ox 99% on R/A; ph 17:09 BP 125 / 97; Pulse 101; Resp 18; Temp 97.8; Pulse Ox 98% on R/A; ph 11:07 Body Mass Index 25.82 (72.57 kg, 167.64 cm) hb [place] Coma Score: 11:07 Eye Response: spontaneous(4). Verbal Response: oriented(5). Motor Response: obeys hb commands(6). Total: 15. 12:30 Eye Response: spontaneous(4). Verbal Response: oriented(5). Motor Response: obeys ph commands(6). Total: 15. 13:45 Eye Response: spontaneous(4). Verbal Response: oriented(5). Motor Response: obeys ph commands(6). Total: 15. 14:30 Eye Response: spontaneous(4). Verbal Response: oriented(5). Motor Response: obeys ph commands(6). Total: 15. 15:30 Eye Response: spontaneous(4). Verbal Response: oriented(5). Motor Response: obeys ph commands(6). Total: 15. 17:09 Eye Response: spontaneous(4). Verbal Response: oriented(5). Motor Response: obeys ph commands(6). Total: 15. Trauma Score (Adult): 11:07 Eye Response: spontaneous(1); Verbal Response: oriented(1); Motor Response: obeys hb commands(2); Systolic BP: > 89 mm Hg(4); Respiratory Rate: 10 to 29 per min(4); Marlene Score: 15; Trauma Score: 12 12:30 Eye Response: spontaneous(1); Verbal Response: oriented(1); Motor Response: obeys ph commands(2); Systolic BP: > 89 mm Hg(4); Respiratory Rate: 10 to 29 per min(4); [place] Score: 15; Trauma Score: 12 13:45 Eye Response: spontaneous(1); Verbal Response: oriented(1); Motor Response: obeys ph commands(2); Systolic BP: > 89 mm Hg(4); Respiratory Rate: 10 to 29 per min(4); [place] Score: 15; Trauma Score: 12 14:30 Eye Response: spontaneous(1); Verbal Response: oriented(1); Motor Response: obeys ph commands(2); Systolic BP: > 89 mm Hg(4); Respiratory Rate: 10 to 29 per min(4); [place] Score: 15; Trauma Score: 12 15:30 Eye Response: spontaneous(1); Verbal Response: oriented(1); Motor Response: obeys ph commands(2); Systolic BP: > 89 mm Hg(4); Respiratory Rate: 10 to 29 per min(4); [place] Score: 15; Trauma Score: 12 17:09 Eye Response: spontaneous(1); Verbal Response: oriented(1); Motor Response: obeys ph commands(2); Systolic BP: > 89 mm Hg(4); Respiratory Rate: 10 to 29 per min(4); [place] Score: 15; Trauma Score: 12 ED Course: 11:07 Patient has correct armband on for positive identification. Bed in low position. Call hb light in reach. Side rails up X2. 11:07 Patient maintains SpO2 saturation greater than 95% on room air. hb 11:15 Patient arrived in ED. hb 11:16 Triage completed. hb 11:19 Ericka Sanchez, RN is Primary Nurse. ph 11:21 Alireza Saul MD is Attending Physician. kdr 11:22 Arm band placed on. hb 11:22 Thermoregulation: warm blanket given to patient. hb 11:45 Knee Right 2 View XRAY In Process Unspecified. EDMS 11:45 Hip Right 2 View XRAY In Process Unspecified. EDMS 11:45 Pelvis XRAY In Process Unspecified. EDMS 11:45 CXR XRAY In Process Unspecified. EDMS 12:39 Efra Dye MD is Hospitalizing Provider. kdr 17:13 No provider procedures requiring assistance completed. Maintain EMS IV. Dressing ph intact. Good blood return noted. Site clean \T\ dry. Gauge \T\ site: 20 RAC. Patient admitted, IV remains in place. Administered Medications: 12:00 Drug: Zofran (Ondansetron) 4 mg Route: IVP; Site: right antecubital; ph 12:07 Follow up: Response: No adverse reaction; Nausea is decreased ph 12:06 Not Given (Other Intervention Used): morphine 4 mg IVP once; RASS on ADMIN: Combtv4, ph Very Agttd3, Agttd2, Rstlss1, AlertClm0, Drwsy-1, Lt Sdtn-2, Mod Sdtn-3, Dp Sdtn-4, UnArsble-5 12:07 Drug: fentaNYL (PF) 50 mcg Route: IVP; Site: right antecubital; ph 12:30 Follow up: Response: No adverse reaction; RASS: Alert and Calm (0) ph 13:38 Drug: fentaNYL (PF) 50 mcg Route: IVP; Site: right antecubital; ph 14:00 Follow up: Response: No adverse reaction; RASS: Alert and Calm (0) ph 14:58 Drug: fentaNYL (PF) 50 mcg Route: IVP; Site: right antecubital; ph 15:30 Follow up: Response: No adverse reaction ph 15:10 Drug: Calcium Gluconate 1 grams Route: IVPB; Infused Over: 60 mins; Site: right ph antecubital; 16:10 Follow up: Response: No adverse reaction; IV Status: Completed infusion ph 15:11 Drug: Sodium Bicarbonate 1 amp Route: IVP; Site: right antecubital; ph 17:16 Follow up: Response: No adverse reaction ph 15:16 Drug: Albuterol - atroVENT (3:1) (2.5 mg - 0.5 mg) 3 ml Route: Nebulizer; ph 17:15 Follow up: Response: No adverse reaction ph Intake: 11:07 PO: 0ml; Total: 0ml. hb Output: 11:07 Urine: 0ml; Total: 0ml. hb Outcome: 12:40 Decision to Hospitalize by Provider. kdr 17:14 Admitted to Med/surg accompanied by tech, via stretcher, room 204, with chart, Report ph called to [facility] 17:14 Condition: stable 17:14 Patient's length of stay in the Emergency Department was greater than 2 hours. awaiting room assignmentPatient's length of stay extended due to 17:46 Patient left the ED. hb Signatures: Dispatcher [facility] EDAlireza Gray MD MD kdr Ericka Sanchez, RN RN ph Dayana Jay, RN RN hb
--- NOTE | 2020-03-29 12:41 | EDPHYS ---
Physician Documentation [facility] Name: Lilian Avila Age: 79 yrs Sex: Female : 1940 Arrival Date: 03/29/2020 Time: 11:15 Bed 16 Private MD: ED Physician Alireza Saul HPI: 03/29 11:25 This 79 yrs old Female presents to ER via EMS with complaints of Fall Injury. kdr 11:25 Details of fall: The patient fell from an upright position, while walking. Onset: The kdr symptoms/episode began/occurred suddenly, just prior to arrival. Associated injuries: The patient sustained right hip and right knee, decreased range of motion, obvious fracture, painful injury, swelling. Severity of symptoms: At their worst the symptoms were moderate, in the emergency department the symptoms are unchanged. The patient has not experienced similar symptoms in the past. The patient has not recently seen a physician. Historical: - Allergies: 11:22 Codeine (Hallucinations/agitation); hb 11:22 Morphine (Hallucinations/agitation); hb 11:22 PENICILLINS (rash); hb - Home Meds: 11:22 amiodarone 200 mg Oral tab [Active]; atorvastatin 80 mg Oral tab [Active]; clopidogrel hb 75 mg Oral tab 1 tab once daily [Active]; fluoxetine 20 mg Oral cap 1 cap [Active]; furosemide 40 mg Oral tab [Active]; gabapentin 300 mg Oral cap [Active]; Januvia 50 mg Oral tab [Active]; pantoprazole 40 mg Oral TbEC [Active]; primidone 50 mg Oral tab [Active]; spironolactone 50 mg Oral tab [Active]; - PMHx: 11:22 CHF; Diabetes - NIDDM; Hypertension; Myocardial infarction; hb - 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 - Social history:: Smoking status: Patient denies any tobacco usage or history of. ROS: 11:25 Constitutional: Negative for fever, chills, and weight loss, Eyes: Negative for injury, kdr pain, redness, and discharge, ENT: Negative for injury, pain, and discharge, Neck: Negative for injury, pain, and swelling, Cardiovascular: Negative for chest pain, palpitations, and edema, Respiratory: Negative for shortness of breath, cough, wheezing, and pleuritic chest pain, Abdomen/GI: Negative for abdominal pain, nausea, vomiting, diarrhea, and constipation, Back: Negative for injury and pain, : Negative for injury, bleeding, discharge, and swelling, Skin: Negative for injury, rash, and discoloration, Neuro: Negative for headache, weakness, numbness, tingling, and seizure activity. Psych: Negative for depression, anxiety, suicide ideation, homicidal ideation, and hallucinations, Allergy/Immunology: Negative for hives, rash, and allergies, Endocrine: Negative for neck swelling, polydipsia, polyuria, polyphagia, and marked weight changes, Hematologic/Lymphatic: Negative for swollen nodes, abnormal bleeding, and unusual bruising. 11:25 MS/extremity: Positive for injury or acute deformity, decreased range of motion, tenderness, of the right hip and right knee. Exam: 11:25 Constitutional: This is a well developed, well nourished patient who is awake, alert, kdr and in no acute distress. Head/Face: Normocephalic, atraumatic. Eyes: Pupils equal round and reactive to light, extra-ocular motions intact. Lids and lashes normal. Conjunctiva and sclera are non-icteric and not injected. Cornea within normal limits. Periorbital areas with no swelling, redness, or edema. Neck: Trachea midline, no thyromegaly or masses palpated, and no cervical lymphadenopathy. Supple, full range of motion without nuchal rigidity, or vertebral point tenderness. No Meningismus. Chest/axilla: Normal chest wall appearance and motion. Nontender with no deformity. No lesions are appreciated. Cardiovascular: Regular rate and rhythm with a normal S1 and S2. No gallops, murmurs, or rubs. Normal PMI, no JVD. No pulse deficits. Respiratory: Lungs have equal breath sounds bilaterally, clear to auscultation and percussion. No rales, rhonchi or wheezes noted. No increased work of breathing, no retractions or nasal flaring. Abdomen/GI: Soft, non-tender, with normal bowel sounds. No distension or tympany. No guarding or rebound. No evidence of tenderness throughout. Back: No spinal tenderness. No costovertebral tenderness. Full range of motion. Skin: Warm, dry with normal turgor. Normal color with no rashes, no lesions, and no evidence of cellulitis. Neuro: Awake and alert, GCS 15, oriented to person, place, time, and situation. Cranial nerves II-XII grossly intact. Motor strength 5/5 in all extremities. Sensory grossly intact. Cerebellar exam normal. Normal gait. Psych: Awake, alert, with orientation to person, place and time. Behavior, mood, and affect are within normal limits. 11:25 Musculoskeletal/extremity: Extremities: grossly normal except: noted in the right hip and right knee: decreased ROM, pain, tenderness, noted in the right knee: decreased ROM, ecchymosis, pain. Vital Signs: 11:07 BP 149 / 60; Pulse 60; Resp 16; Temp 97.9; Pulse Ox 98% on R/A; Weight 72.57 kg; Height hb 5 ft. 6 in. (167.64 cm); Pain 10/10; 12:30 BP 152 / 78; Pulse 62; Resp 16; Pulse Ox 96% on R/A; ph 13:45 BP 159 / 58; Pulse 56; Resp 18; Pulse Ox 95% on R/A; ph 14:30 BP 149 / 65; Pulse 65; Resp 18; Pulse Ox 98% on R/A; ph 15:30 BP 153 / 88; Pulse 71; Resp 20; Temp 97.8; Pulse Ox 99% on R/A; ph 17:09 BP 125 / 97; Pulse 101; Resp 18; Temp 97.8; Pulse Ox 98% on R/A; ph 11:07 Body Mass Index 25.82 (72.57 kg, 167.64 cm) hb Marlene Coma Score: 11:07 Eye Response: spontaneous(4). Verbal Response: oriented(5). Motor Response: obeys hb commands(6). Total: 15. 12:30 Eye Response: spontaneous(4). Verbal Response: oriented(5). Motor Response: obeys ph commands(6). Total: 15. 13:45 Eye Response: spontaneous(4). Verbal Response: oriented(5). Motor Response: obeys ph commands(6). Total: 15. 14:30 Eye Response: spontaneous(4). Verbal Response: oriented(5). Motor Response: obeys ph commands(6). Total: 15. 15:30 Eye Response: spontaneous(4). Verbal Response: oriented(5). Motor Response: obeys ph commands(6). Total: 15. 17:09 Eye Response: spontaneous(4). Verbal Response: oriented(5). Motor Response: obeys ph commands(6). Total: 15. Trauma Score (Adult): 11:07 Eye Response: spontaneous(1); Verbal Response: oriented(1); Motor Response: obeys hb commands(2); Systolic BP: > 89 mm Hg(4); Respiratory Rate: 10 to 29 per min(4); Marlene Score: 15; Trauma Score: 12 12:30 Eye Response: spontaneous(1); Verbal Response: oriented(1); Motor Response: obeys ph commands(2); Systolic BP: > 89 mm Hg(4); Respiratory Rate: 10 to 29 per min(4); Marlene Score: 15; Trauma Score: 12 13:45 Eye Response: spontaneous(1); Verbal Response: oriented(1); Motor Response: obeys ph commands(2); Systolic BP: > 89 mm Hg(4); Respiratory Rate: 10 to 29 per min(4); [place] Score: 15; Trauma Score: 12 14:30 Eye Response: spontaneous(1); Verbal Response: oriented(1); Motor Response: obeys ph commands(2); Systolic BP: > 89 mm Hg(4); Respiratory Rate: 10 to 29 per min(4); Marlene Score: 15; Trauma Score: 12 15:30 Eye Response: spontaneous(1); Verbal Response: oriented(1); Motor Response: obeys ph commands(2); Systolic BP: > 89 mm Hg(4); Respiratory Rate: 10 to 29 per min(4); [place] Score: 15; Trauma Score: 12 17:09 Eye Response: spontaneous(1); Verbal Response: oriented(1); Motor Response: obeys ph commands(2); Systolic BP: > 89 mm Hg(4); Respiratory Rate: 10 to 29 per min(4); [place] Score: 15; Trauma Score: 12 MDM: 11:25 Data reviewed: vital signs, nurses notes, lab test result(s), radiologic studies. kdr Counseling: I had a detailed discussion with the patient and/or guardian regarding: the historical points, exam findings, and any diagnostic results supporting the discharge/admit diagnosis, lab results, radiology results. 12:40 Patient medically screened. kdr 03/29 11:23 Order name: CBC with Diff; Complete Time: 12:28 kdr 03/29 11:23 Order name: Chem 7; Complete Time: 12:28 kdr 03/29 11:23 Order name: PT-INR; Complete Time: 12:28 kdr 03/29 12:59 Order name: Basic Metabolic Panel EDMS 03/29 12:59 Order name: Basic Metabolic Panel EDMS 03/29 12:59 Order name: CBC with Automated Diff EDMS 03/29 11:22 Order name: Knee Right 2 View XRAY; Complete Time: 12:28 kdr 03/29 11:22 Order name: Hip Right 2 View XRAY; Complete Time: 12:28 kdr 03/29 11:22 Order name: Pelvis XRAY; Complete Time: 12:28 kdr 03/29 11:25 Order name: CXR XRAY; Complete Time: 12:28 kdr 03/29 12:59 Order name: CBC with Automated Diff EDMS 03/29 11:25 Order name: EKG - Nurse/Tech; Complete Time: 12:07 kdr 03/29 12:38 Order name: EKG Electrocardiogram EDMS 03/29 12:59 Order name: CONS Physician Consult EDMS 03/29 12:59 Order name: NPO EDMS Administered Medications: 12:00 Drug: Zofran (Ondansetron) 4 mg Route: IVP; Site: right antecubital; ph 12:07 Follow up: Response: No adverse reaction; Nausea is decreased ph 12:06 Not Given (Other Intervention Used): morphine 4 mg IVP once; RASS on ADMIN: Combtv4, ph Very Agttd3, Agttd2, Rstlss1, AlertClm0, Drwsy-1, Lt Sdtn-2, Mod Sdtn-3, Dp Sdtn-4, UnArsble-5 12:07 Drug: fentaNYL (PF) 50 mcg Route: IVP; Site: right antecubital; ph 12:30 Follow up: Response: No adverse reaction; RASS: Alert and Calm (0) ph 13:38 Drug: fentaNYL (PF) 50 mcg Route: IVP; Site: right antecubital; ph 14:00 Follow up: Response: No adverse reaction; RASS: Alert and Calm (0) ph 14:58 Drug: fentaNYL (PF) 50 mcg Route: IVP; Site: right antecubital; ph 15:30 Follow up: Response: No adverse reaction ph 15:10 Drug: Calcium Gluconate 1 grams Route: IVPB; Infused Over: 60 mins; Site: right ph antecubital; 16:10 Follow up: Response: No adverse reaction; IV Status: Completed infusion ph 15:11 Drug: Sodium Bicarbonate 1 amp Route: IVP; Site: right antecubital; ph 17:16 Follow up: Response: No adverse reaction ph 15:16 Drug: Albuterol - atroVENT (3:1) (2.5 mg - 0.5 mg) 3 ml Route: Nebulizer; ph 17:15 Follow up: Response: No adverse reaction ph Disposition: 03/29/20 12:40 Hospitalization ordered by Efra Dye for Inpatient Admission. Preliminary diagnosis is Right hip fracture, closed. - Bed requested for Telemetry/MedSurg (Inpatient). - Status is Inpatient Admission. hb - Condition is Fair. - Problem is new. - Symptoms have improved. Signatures: Dispatcher [employer] EDAnu Jacob RN RN Alireza Davis MD MD [facility] Ericka Sanchez RN RN Dayana Jay RN RN hb Corrections: (The following items were deleted from the chart) 16:34 12:40 Hospitalization Ordered by Efra Dye MD for Inpatient Admission. Preliminary kl diagnosis is Right hip fracture, closed. Bed requested for Telemetry/MedSurg (Inpatient). Status is Inpatient Admission. Condition is Fair. Problem is new. Symptoms have improved. kdr 17:46 16:34 03/29/2020 12:40 Hospitalization Ordered by Efra Dye MD for Inpatient hb Admission. Preliminary diagnosis is Right hip fracture, closed. Bed requested for Telemetry/MedSurg (Inpatient). Status is Inpatient Admission. Condition is Fair. Problem is new. Symptoms have improved. kl
--- OUTSIDE RECORDS SUMMARY | 2020-03-29 12:41 | XMS REPORT | Clinical Summary ---
:1940 Author Organization [facility] Address [address] [place] [address] Care Team Providers Name Role Phone Asked, [...] of insulin (HCC) 06/14/2019 Intake Access after 03/29/2019 Immunizations Name Administration Dates Next Due FLUCELVAX [...] DOPPLER AM CDT procedur e are in ([id number]) the results section. PARTIAL THROMBOPLASTIN STAT 06/18/2019 [...] procedure are i n the results section. UT INSERT Routine 06/15/2019 11:39 Cardiogenic shock Result s for this CATH,ART,PERCUT,SHORTTE PM CDT ([facility]) procedure are in RM Atrial the results fibrillation, section. unspecified type ([facility]) UT INSERT NON-TUNNEL CV Routine 06/15/2019 11:37 Cardiogenic s hock Results for this CATH PM CDT ([facility]) procedure are i n the results section. [...] are i n the results section. after 03/29/2019 Results POC glucose (06/24/2019 11:42 AM CDT)Only the most recent of41 resultswithin the time period is included. Pathologist Sig nature POC glucose 165 (H) 65 - 99 mg/dL [facility] Comment: [facility]PITAL [facility] Notified RN Meter ID: [id number] Superintendent Colliery: Sher Barrios Specimen Performing Organization Address City/State/Zipcode Phone Number [facility] DEPARTMENT OF PATHOLOGY AND [address] [place], [place] [address] GENOMIC MEDICINE [address] [address] Estimated GFR (06/24/2019 5:57 AM CDT)Only the most recent of15 resultswithin the time period is included. Estimated GFR 28 (A) mL/min/1.73 [facility] Comment: HOSPITAL Catergory Units Interpretation G1 [...] specimen Performing Organization Address City/State/Zipcode Phone Number [facility] DEPARTMENT OF PATHOLOGY AND [address] [place], [place] [address] GENOMIC MEDICINE [facility] [address] [place] [address] CBC with platelet and differential (06/24/2019 5:57 AM CDT)Only the most recent of12 resultswithin the time period is included. WBC 7.22 4.50 - 11.00 [facility] k/uL HOSPITAL RBC 3.37 (L) 4.20 - 5.50 [facility] m/uL [facility] HGB 9.4 (L) 12.0 - 16.0 [facility] g/dL [facility] HCT 30.9 (L) 37.0 - 47.0 % [facility] MCV 91.7 82.0 - 100.0 [facility] MCH 27.9 27.0 - 34.0 pg [facility] MCHC 30.4 (L) 31.0 - 37.0 [facility] gdL [facility] RDW - SD 60.5 (H) 37.0 - 55.0 fL [facility] MPV 11.6 8.8 - 13.2 fL [facility] Platelet count 246 150 - 400 k/uL [facility] Nucleated RBC 0.00 /100 WBC [facility] Neutrophils 71.7 (H) 39.0 - 69.0 % [facility] Lymphocytes 11.5 (L) 25.0 - 45.0 % [facility] Monocytes 12.2 (H) 0.0 - 10.0 % [facility] Eosinophils 2.9 0.0 - 5.0 % [facility] Basophils 0.6 0.0 - 1.0 % [facility] Immature granulocytes 1.1 0.0 - 1.0 % [facility] (H)Comment: HOSPITAL "Immature granulocytes" (promyelocytes , myelocytes, metamyelocytes ) Specimen Blood Performing Organization Address City/[facility] Phone Number [facility] DEPARTMENT OF PATHOLOGY AND [address] [place] [address] [place] [address] Phosphorus level (06/24/2019 5:57 AM CDT)Only the most recent of9 resultswithin the time period is included. Pathologist Sig nature Phosphorus 2.7 2.4 - 4.5 mg/dL [facility] L Specimen Plasma specimen Performing Organization Address [facility] Phone Number [facility] DEPARTMENT OF PATHOLOGY AND [address] [place] [address] [place] [phone] Magnesium level (06/24/2019 5:57 AM CDT)Only the most recent of11 resultswithin the time period is included. Pathologist Sig nature Magnesium 1.8 1.6 - 2.4 mg/dL [facility] Specimen Plasma specimen Performing Organization Address [facility] Phone Number [facility] DEPARTMENT OF PATHOLOGY AND [address] [place] [address] [phone] [address] Basic metabolic panel (06/24/2019 5:57 AM CDT)Only the most recent of8 results within the time period is included. Pathologist Sig nature Sodium 142 135 - 148 mEq/L [facility] Potassium 3.9 3.5 - 5.0 mEq/L [facility] Chloride 101 98 - 112 mEq/L [facility] CO2 27 24 - 31 mEq/L [facility] Anion gap 14@ANIO 7 - 15 mEq/L [facility] BUN 41 (H) 8 - 23 mg/dL [facility] Creatinine 1.69 (H) 0.50 - 0.90 mg/dL [facility] Glucose 164 (H) 65 - 99 mg/dL [facility] Calcium 9.5 8.8 - 10.2 mg/dL [facility] Specimen Plasma specimen Performing Organization Address [facility] Corporation[facility] Phone Number [facility] DEPARTMENT OF PATHOLOGY AND [address] [place] [address] [place] [address] XR Chest 1 Vw Portable (06/23/2019 11:48 AM CDT)Only the most recent of6 results within the time period is included. Specimen Narrative Performed At EXAMINATION: [facility] CHEST 1 [facility]: SOB COMPARISON: June 18, 2019 [...] lung bases with no definite infiltr ate. [facility]-[id number] Procedure Note Interface, Radiology Results Incoming - [...] both lung bases with no definite infiltrate. [facility]-[id number] Performing Organization Address City/State/Zipcode Phone Number [facility] [address] [place] [address] Partial thromboplastin time, activated (06/22/2019 5:30 AM CDT)Only the most recent of14 resultswithin the time period is included. Pathologist [facility] PTT 35.2 23.0 - 36.0 [facility] Comment: [facility] PTT therapeutic range for unfractionated heparin is 61.0-112.0 seconds which corresponds to Anti-Xa 0.3-0.7 U/ml. Specimen Blood Performing Organization Address City/State/Zipcode Phone Number [facility] DEPARTMENT OF PATHOLOGY AND [address] [place] [address] [phone] [address] Ionized calcium (06/22/2019 4:00 AM CDT)Only the most recent of3 resultswithin the time period is included. Pathologist Sig nature pH 7.51 [facility] Ionized calcium 1.07 (L) 1.11 - 1.32 [facility] mmol/L [facility] Specimen Plasma specimen Performing Organization Address City/[facility] Corporation[facility] Phone Number [facility] DEPARTMENT OF PATHOLOGY AND [address] [place] [address] Digoxin level (06/22/2019 4:00 AM CDT)Only the most recent of6 resultswithin the time period is included. Digoxin 0.9 0.8 - 2.0 ng/mL [facility] Comment: HOSPITAL For valid Digoxin results, at least 6 hours should anthony pse between time of last dose and collection of blood. Otherwise, result may be false high. Therapeutic Range: 0.8 - 2.0 ng/mL Specimen Plasma specimen Performing Organization Address [facility] Phone Number [facility] DEPARTMENT OF PATHOLOGY AND [address] [place] [address] LDH (06/21/2019 4:00 AM CDT)Only the most recent of3 resultswithin the time period is included. Pathologist Sig nature LDH 273 (H) 87 - 225 U/L [facility] Specimen Plasma specimen Performing Organization Address [facility] Phone Number [facility] DEPARTMENT OF PATHOLOGY AND [address] [place] [address] ECG 12 lead (06/19/2019 6:41 AM CDT)Only [...] available-Electronicall y Signed By Ramin Hill MD ([id number]) on 06/20/2019 5:53:08 PM Specimen Narrative Performed At This result has an attachment that is no t available. Performing Organization Address City/[facility] Corporation[facility] Phone Number [facility] MUSE [address] [place] [address] Troponin (06/19/2019 4:00 AM CDT)Only the most recent of9 resultswithin the time period is included. Troponin 2.139 (HH) 0.000 - 0.040 [facility] Comment: ng/mL [facility] changed methodology eff ective: 01/26/2019 at 10:00 am The new method has a 99th percentile cutoff of 0.040 n g/mL Specimen Plasma specimen Performing Organization Address City/[facility] Corporation[facility] Phone Number [facility] DEPARTMENT OF PATHOLOGY AND [address] [place] [address] [phone] [address] Manual differential (06/19/2019 4:00 AM CDT) Manual differential PERFORMED [facility] Neutrophils 80.0 (H) 39.0 - 69.0 % [facility] Lymphocytes 10.0 (L) 25.0 - 45.0 % [facility] Monocytes 8.0 0.0 - 10.0 % [facility] Eosinophils 1.0 0.0 - 5.0 % [facility] Basophils 1.0 0.0 - 1.0 % [facility] Metamyelocytes 0 % [facility] Promyelocytes 0 % [facility] Platelet slide review Watson slt decr [facility] Anisocytosis Moderate [facility] Polychromasia Moderate [facility] Ovalocytes Moderate [facility] Specimen Narrative Performed At __TROP_ results called to and read back by [facility] DEPARTM ENT OF PATHOLOGY AND GENOMIC AFUA FULTON\\[id number](name/location) at __ 06/19/2019 06:16 (date/time) by RAJENDRA_. Performing Organization Address [facility]/Zipcode Phone Number [facility] DEPARTMENT OF PATHOLOGY AND [address] [place] [address] [phone] [address] Lactic acid level (06/19/2019 4:00 AM CDT)Only the most recent of7 results within the time period is included. Pathologist Sig nature Lactic acid 0.9 0.5 - 2.2 mmol/L [facility] [place] Specimen Plasma specimen Performing Organization Address City/State/Zipcode Phone Number [facility] DEPARTMENT OF PATHOLOGY AND [address] [place] [address] [phone] [address] Comprehensive metabolic panel (06/19/2019 4:00 AM CDT)Only the most recent of7 resultswithin the time period is included. Sodium 138 135 - 148 [facility] mEq/L [facility] Potassium 4.1 3.5 - 5.0 [facility] mEq/L [facility] Chloride 99 98 - 112 [facility] mEq/L [facility] CO2 25 24 - 31 mEq/L [facility] Anion gap 14@ANIO 7 - 15 mEq/L [facility] BUN 37 (H) 8 - 23 mg/dL [facility] Creatinine 1.90 (H) 0.50 - 0.90 [facility] mg/dL [facility] Glucose 137 (H) 65 - 99 mg/dL [facility] Calcium 8.5 (L) 8.8 - 10.2 [facility] mg/dL [facility] Protein 6.3 6.3 - 8.3 [facility] Comment: g/dL HOSPITAL [place] 4.6-7.0 g/dL 1 week 4.4-7.6 g/dL 7 months-1year 5.1-7.3 g/dL 1-2 years 5.6-7.5 g/dL >3 years 6.0-8.0 g/dL 18-150 6.3-8.3 g/dL Albumin 3.9 3.5 - 5.0 [facility] g/dL [facility] A/G ratio 1.6 0.7 - 3.8 [facility] Alkaline phosphatase 49 35 - 104 U/L [facility] AST 623 (H) 10 - 35 U/L [facility] ALT 606 (H) 5 - 50 U/L [facility] Total bilirubin 1.0 0.0 - 1.2 [facility] mg/dL HOSPITAL Specimen Plasma specimen Performing Organization Address City/State/Zipcode Phone Number [facility] DEPARTMENT OF PATHOLOGY AND [address] [place], [place] [address] [address] Hemoglobin & hematocrit (06/19/2019 1:30 AM CDT)Only the most recent of2 resultswithin the time period is included. Pathologist Sig nature HGB 9.4 (L) 12.0 - 16.0 g/dL [facility] HCT 30.3 (L) 37.0 - 47.0 % [facility] Specimen Blood Performing Organization Address [facility] Phone Number [facility] DEPARTMENT OF PATHOLOGY AND [address] [place] [address] Activated clotting time (06/18/2019 2:41 PM CDT) Activated clotting 139 96 - 152 sec [facility] Comment: HOSPITAL Meter ID: [id number] Superintendent Colliery: Liz Brennan Specimen Performing Organization Address [facility] Phone Number [facility] DEPARTMENT OF PATHOLOGY AND [address] [place] [address] O2 saturation, venous (06/18/2019 11:48 AM CDT)Only the most recent of3 results within the time period is included. Pathologist Sig nature Hemoglobin, venous, 8.9 (L) 12.0 - 16.0 g/dL [facility] O2 saturation, 78 (H) 40 - 70 % [facility] Specimen Blood Performing Organization Address [facility] Phone Number [facility] DEPARTMENT OF PATHOLOGY AND [address] [place], [place] [phone] Echocardiogram complete w contrast and 3D if needed (06/18/2019 1:45 AM CDT) Specimen Narrative Performed At [facility] Echo cardiography Report [address] [place] [address] Pat.Name: NASIR DAS Pat.ID: [id number] .Date: 06/18/2019 Refer.MD: KEO DELGADO MD Exam Time: 1:34:00 AM Study Type:R outine Echo Height: 67in BSA: 1.96 m2 Age: 1 1940,78Y Sex: FEMALE BP: 105/54 HR: 76 bpm Sonogrphr: FARHAD Nguyễn Pat. Stat.:Inpat ient Room: [facility] Study [facility] atus:Final Echo Event ID:[id number] Order ID: [id number] Reason for Study:CHF History / Clinical:Coronary Artery [...] of 15 mmHg. MEASUREMENTS: 2D Parasternal Long [place] Ao Rtd 3.5 cm Index 1.8 cm/m2 [...] 86.8 cm AV mnVel 306.6 cm/s AVpkAcRt 25558.4 cm/s AV pkPG 69.7 mmHg AV DeRt [...] 2018 11:03 AM CDT Echocardiography Report [address] [place] [address] Pat.Name: NASIR DAS Pat.I D: [id number] .Date: 06/18/2019 Refer .MD: KEO DELGADO MD Exam Time: 1:34:00 AM Study Type:Routine Echo Height: 67in BSA: 1.96 m2 Age: 1 1940,78Y Sex: FEMALE BP: 105/54 HR: 76 bpm Sonogrphr: FARHAD Nguyễn Pat. Stat.:Inpatient Room: [place] [address] Study Status:Final Echo Event ID:[id number] Order ID: [id number] Reason for Study:CHF History / Clinical:Coronary Artery [...] of 15 mmHg. MEASUREMENTS: 2D Parasternal Long [place] Ao Rtd 3.5 cm Inde x 1.8 [...] cm AV mnVel 306.6 cm/s AVpk AcRt 48157.4 cm/s AV pkPG 69.7 mmHg AV D [...] AM Keo Clifford MD Performing Organization Address City/[facility]/Zipcode Phone Number [facility] [address] [place] [address] XR Abdomen 1 Vw Portable (06/17/2019 9:38 [...] es 5 mm. Bladder probe is seen. [id number] Procedure Note Interface, Radiology Results Incoming - [...] measures 5 mm. Bladder probe is seen. [id number] Performing Organization Address City/[facility]/Zipcode Phone Number [facility] [address] [place] [address] Total iron binding capacity (06/17/2019 3:30 AM CDT) Pathologist Sig nature Iron level 30 (L) 37 - 145 ug/dL [facility] Iron binding capacity 249 200 - 400 ug/dL [facility] % Saturation 12.0 (L) 15.0 - 38.0 % [facility] Specimen Plasma specimen Performing Organization Address City/[facility]/Zipcode Phone Number [facility] DEPARTMENT OF PATHOLOGY AND [address] [place] [address] [phone] [address] Vitamin D 25 hydroxy level (06/17/2019 3:30 AM CDT) Vitamin D, 20.3 (L) 30.0 - 150.0 [facility] 25-hydroxy Comment: ng/mL HOSPITAL This assay reports [...] Blood Performing Organization Address City/State/Zipcode Phone Number [facility] DEPARTMENT OF PATHOLOGY AND [address] [place] [address] [phone] [address] Parathyroid hormone (06/17/2019 3:30 AM CDT) Pathologist Sig nature PTH 192 (H) 15 - 65 pg/mL [facility] Specimen Blood Performing Organization Address City/State/Zipcode Phone Number [facility] DEPARTMENT OF PATHOLOGY AND [address] [place] [address] [phone] [address] Venous blood gas (06/17/2019 3:30 AM CDT)Only the most recent of3 resultswithin the time period is included. Pathologist Sig nature pH, venous 7.36 7.32 - 7.42 [facility] pCO2, venous 48 45 - 51 mmHg [facility] pO2, venous 51 (H) 25 - 40 mmHg [facility] Base excess, venous 1 -2 - 2 meq/L [facility] O2 saturation, 81 (H) 40 - 70 % [facility] Bicarbonate, venous 26.5 21.0 - 28.0 [facility] mmol/L HOSPITAL Specimen Blood Performing Organization Address City/[facility] Phone Number [facility] DEPARTMENT OF PATHOLOGY AND [address] [place] [address] [phone] [address] Ferritin level (06/17/2019 3:30 AM CDT) Pathologist Sig nature Ferritin level 866 (H) 13 - 150 ng/mL [facility] Specimen Plasma specimen Performing Organization Address City/[facility] Phone Number [facility] DEPARTMENT OF PATHOLOGY AND [address] [place] [address] [phone] [address] Vancomycin level, random (06/17/2019 3:30 AM CDT) Pathologist Sig nature Vancomycin, random 15.9 ug/mL [facility] ITAL Specimen Serum Performing Organization Address [facility] Phone Number [facility] DEPARTMENT OF PATHOLOGY AND [address] [place] [address] [phone] [address] [place] Renal (06/16/2019 6:20 PM CDT) Specimen [...] disease. 2.No hydronephrosis. 3.Additional findings as above. [facility]-[id number] Procedure Note Hm Interface, Radiology Results Incoming [...] disease. 2.No hydronephrosis. 3.Additional findings as above. [facility]-[id number] Performing Organization Address City/[facility]/Zipcode Phone Number [facility] [address] [place] [address] B natriuretic peptide (06/16/2019 5:30 PM CDT)Only the most recent of2 results within the time period is included. Pathologist Sig nature BNP 446 (H) 0 - 100 pg/mL [facility] Specimen Narrative Performed At _TROP__ results called to and read back by [facility] DEPARTM ENT OF PATHOLOGY AND GENOMIC SHELLAISE BAJWA/GENEVIEVE AT MEDICINE 06/16/2019 18:50 BY LM1. Performing Organization Address [facility] Corporation[facility] Phone Number [facility] DEPARTMENT OF PATHOLOGY AND [address] [place] [address] [phone] [address] Urea nitrogen, urine, random (06/16/2019 12:00 PM CDT) Pathologist Sig nature Urea nitrogen, urine, 508 mg/dL [facility] Specimen Urine Performing Organization Address City/[facility]/Zipcode Phone Number [facility] DEPARTMENT OF PATHOLOGY AND [address] [place] [address] [phone] [address] Sodium level, urine, random (06/16/2019 12:00 PM CDT) Pathologist Sig nature Sodium, urine, random 73 mEq/L [facility] Specimen Urine Performing Organization Address City/[facility]/Zipcode Phone Number [facility] DEPARTMENT OF PATHOLOGY AND [address] [place] [address] [phone] [address] Protein, urine, random (06/16/2019 12:00 PM CDT) Pathologist Sig nature Protein, urine random 15 mg/dL [facility] Specimen Urine Performing Organization Address City/[facility]/Zipcode Phone Number [facility] DEPARTMENT OF PATHOLOGY AND [address] [place] [address] [phone] [address] Creatinine level, urine, random (06/16/2019 12:00 PM CDT) Pathologist Sig nature Creatinine, urine, 90 mg/dL [facility] Specimen Urine Performing Organization Address City/[facility] Phone Number [facility] DEPARTMENT OF PATHOLOGY AND [address] [place] [address] [phone] [address] Anti Xa Apixaban (06/16/2019 10:40 AM CDT)Only the most recent of2 resultswithin the time period is included. Anti Xa, Apixaban 72 ng/mL [facility] Comment: HOSPITAL Therapeutic ranges not available, typical levels 2-4 h rs post 2.5 mg dose: 16-108 ng/mL; post 5 mg dose: 103-155 ng/ mL. Apixaban is approved for use without monitoring. Plasma apixaban levels depend on dose and sample timin g. This test has been modified from the financial service rep's in structions. The performance characteristics were determined by [facility] in a manner consistent with CLIA requirements. This test has not been cleared or a pproved by U.S. Food and Drug Administration. Specimen Blood Performing Organization Address City/[facility]/Zipcode Phone Number [facility] DEPARTMENT OF PATHOLOGY AND [address] [place] [address] [phone] [address] Prothrombin time with INR (06/16/2019 10:40 AM CDT)Only the most recent of3 resultswithin the time period is included. Prothrombin time 25.5 (H) 11.5 - 14.5 [facility] INR 2.4 [facility] Comment: YAZDANISM [facility] International Normalized Ratio (INR) is a therapeu [facility] HOSPITAL monitoring tool for patients who are stable on oral anticoagulant therapy. An INR of 2.0-3.0 is suggested for deep vein thrombosis/pulmonary embolism. Specimen Blood Performing Organization Address City/[facility] Phone Number [facility] DEPARTMENT OF PATHOLOGY AND [address] [place] [phone] Arterial blood gas (06/16/2019 10:40 AM CDT)Only the most recent of2 results within the time period is included. Pathologist Sig [facility] pH, arterial 7.35 7.35 - 7.45 [facility] pCO2, arterial 40 35 - 45 mmHg [facility] pO2, arterial 133 (H) 80 - 90 mmHg [facility] Bicarbonate, 21.3 21.0 - 28.0 [facility] mmol/L [facility] Base excess, -4 (L) -2 - 2 mEq/L [facility] O2 saturation, 99 95 - 100 % [facility] Specimen Blood Performing Organization Address City/[facility] Phone Number [facility] DEPARTMENT OF PATHOLOGY AND [address] [place] [address] Beta hydroxybutyrate (06/16/2019 1:30 AM CDT) Pathologist Sig [facility] Beta hydroxybutyrate 0.42 (H) 0.02 - 0.27 [facility] mmol/L [facility] Specimen Serum Performing Organization Address City/[facility] Phone Number [facility] DEPARTMENT OF PATHOLOGY AND [address] [place] [address] IABP PLACEMENT (06/16/2019 1:28 AM CDT) Narrative Performed At Keo Delgado MD 06/16/2019 1: 30 AM IABP placement Date/Time: 06/16/2019 1:28 AM Performed by: Keo Delgado MD Authorized by: Keo Delgado MD Consent: Consent obtained: Verbal Consent given by: Patient Risks discussed: Pneumothorax, hemo rrhage, arrhythmia and local hematoma Alternatives discussed: Alternative treatment [place] protocol: Procedure explained and questions ans wered [...] 12:52 AM CDT) Specimen Narrative Performed At [facility] Echo cardiography Report [id number] [place] [address] Pat.Name: NASIR DAS.ID: [id number] .Date: 06/15/2019 Refer.MD: RUDY DANIEL M D Exam Time: 11:47:00 PM Study Type:Ro utine Echo Height: 67in Weight: 189lb BSA: 1.98 m2 Ag e: 1940,78Y Sex: FEMALE BP: 117/71 HR: 75 bpm Sonogr phr: Chelsea Sierra RDCS Pat. Stat.:Inpatient Room: XO8928-C Study Status:Final Echo Event ID:[id number] Order ID: [id number] Reason for Study:SOB, abn CXR, heart renée lure suspected History / Clinical:Coronary Artery Disea se, Diabetes, Hypertension, Valvular Heart Disease; Aortic Stenosis Procedures: Portable, Stat, 2D Echo,[place] rflow Doppler Limited Race: C SUMMARY: Limited [...] mmHg + RAP. MEASUREMENTS: 2D Parasternal Long [place] Ao An 1.4 cm LVPWd 1 cm [...] 2018 1:16 AM CDT Echocardiography Report [address] [place] [address] Pat.Name: NASIR DAS D: [id number] .Date: 06/15/2019 Refer.MD: RUDY DANIEL MD Exam Time: 11:47:00 PM Study Type:Routine Echo Height: 67in Weigh t: 189lb BSA: 1.98 m2 Age: 1 1940,78Y Sex: FEMALE BP: 117/71 HR: 75 bpm Sonog rphr: Chelsea Sierra RDCS Pat. Stat.:Inpatient Room: [address] Study Status:Final Echo Event ID:[id number] Order ID: [id number] Reason for Study:SOB, abn CXR, heart renée lure suspected History / Clinical:Coronary Artery Disea se, Diabetes, Hypertension, Valvular Heart Disease; Aortic Stenosis Procedures: Portable, Stat, 2D Echo,[place] rflow Doppler Limited Race: C SUMMARY: Limited [...] mmHg + RAP. MEASUREMENTS: 2D Parasternal Long [place] Ao An 1.4 cm LVPW d 1 [...] Organization Address City/State/Zipcode Phone Number [facility] [address] [place] [address] Arterial Line Insertion (06/15/2019 11:39 PM CDT) [...] after 5 days of incubation. HO CIERRA YAZDANISM isolate Comment: HOSPITAL Specimen Information Specimen Source: Blood Specimen Site: Radial, right Specimen Blood - Radial, right Performing Organization Address City/State/Zipcode Phone Number [facility] DEPARTMENT OF PATHOLOGY AND [address] [place] [address] [place] [address] Hemoglobin A1c (06/15/2019 11:25 PM CDT)Only the most recent of2 resultswithin the time period is included. Hemoglobin A1C 10.3 (H) 4.0 - 5.6 % [facility] Comment: HOSPITAL HbA1c cutoffs for diagnosing diabetes: [...] Blood Performing Organization Address City/State/Zipcode Phone Number [facility] DEPARTMENT OF PATHOLOGY AND [address] [place] [address] [place] [address] Lipid panel (06/15/2019 11:25 PM CDT)Only the most recent of2 resultswithin the time period is included. Cholesterol 80 <200 mg/dL [facility] Triglycerides 107 <150 mg/dL [facility] HDL cholesterol 26 (L) >40 mg/dL [facility] LDL cholesterol 32Comment: Result <100 mg/dL [place] obtained by direct YAZDANISM LDL measurement [facility] Lipid panel [facility] interpretation Comment: YAZDANISM Total Cholesterol (mg/dL) HOSPIT [place] <200 Desirable [...] mg/dL) Specimen Plasma specimen Performing Organization Address City/[facility] Phone Number [facility] DEPARTMENT OF PATHOLOGY AND [address] [place] [address] [address] [address] Ionized calcium, arterial (06/15/2019 9:30 PM CDT) Pathologist Sig nature Ionized calcium, 1.17 1.11 - 1.32 [facility] arterial mmol/L HOSPITAL Specimen Blood Performing Organization Address [facility] Phone Number [facility] DEPARTMENT OF PATHOLOGY AND [address] [place] [address] [phone] [address] XR Chest 2 Vw (06/15/2019 8:05 PM [...] structures are demineralized. HMRM-PRARSA Performing Organization Address [facility] Phone Number [facility] [address] [place] [address] C difficile toxin (06/15/2019 2:00 PM CDT) Clostridium No Clostridium difficle toxin present ERAN MARTIN YAZDANISM difficile toxin Comment: HOSPITAL Specimen Information Specimen Source: Stool Specimen Site: Nonpreserved Specimen Stool - Nonpreserved Performing Organization Address [facility] Phone Number [facility] DEPARTMENT OF PATHOLOGY AND [address] [place] [phone] [place] [address] Thyroid stimulating hormone (06/15/2019 5:40 AM CDT) Pathologist Sig nature TSH 3.06 0.27 - 4.20 uIU/mL [facility] ITAL Specimen Plasma specimen Performing Organization Address [facility] Phone Number [facility] DEPARTMENT OF PATHOLOGY AND [address] [place] [address] [place] [address] T4, free (06/15/2019 5:40 AM CDT) Pathologist Sig formerly [facility] T4, free 1.4 0.9 - 1.7 ng/dL [facility] L Specimen Plasma specimen Performing Organization Address [facility] Phone Number [facility] DEPARTMENT OF PATHOLOGY AND [address] [place] [phone] [place] [address] Gram stain (06/15/2019 4:58 AM CDT) Gram stain result Occasional WBC's [facility] Few Gram positive cocci in pairs HOSPITAL Few Gram negative rods Comment: Specimen Information Specimen Source: Urine Specimen Site: Clean catch Specimen Urine Performing Organization Address [facility] Phone Number [facility] DEPARTMENT OF PATHOLOGY AND [address] [place] [address] [place] [address] Urine culture (06/15/2019 4:58 AM CDT) Pathologist [facility] Urine culture Mixed chinyere 10-5 col/cc [facility] T isolate Comment: HOSPITAL Specimen Information Specimen Source: Urine Specimen Site: Clean catch Specimen Urine Performing Organization Address [facility] Phone Number [facility] DEPARTMENT OF PATHOLOGY AND [address] [place] [address] [place] [phone] Urinalysis screen and microscopy, with reflex to culture (06/15/2019 3:50 AM CDT) Specimen site Clean catch [facility] Color, UA Dark Yellow [facility] Appearance, UA Hazy [facility] Specific gravity, UA 1.016 1.001 - 1.035 [facility] pH, UA 5.0 5.0 - 8.5 [facility] Protein, UA 1+ (A) Negative [facility] Glucose, UA Negative Negative [facility] Ketones, UA Negative Negative [facility] Bilirubin, UA Negative Negative [facility] Blood, UA Moderate (A) Negative [facility] Nitrite, UA Negative Negative [facility] Urobilinogen, UA <2.0 <2.0 [facility] Leukocyte esterase, Moderate (A) Negative [facility]ITAL Epithelial cells, UA 1 /HPF [facility] WBC, UA 26 (H) 0 - 4 /HPF [facility] RBC, UA 2 0 - 5 /HPF [facility] Bacteria, UA Few None seen [facility] WBC clumps, UA Few (A) [facility] Yeast, UA None seen [facility] Yeast with None seen [facility] pseudohyphae, HOSPITAL Hyaline casts, UA 9 /LPF [facility] Specimen Urine Performing Organization Address City/State/Zipcode Phone Number [facility] DEPARTMENT OF PATHOLOGY AND [address] [place], [place] [address] [facility] [address] [address] after 03/29/2019 Insurance Payer Benefit Plan / Subscriber ID Effective Dates Phone Addre ss Type Group HUMANA MEDICARE HU[employer]NA MEDICARE xxxxxxxxx 2017-Present PPO PPO/PFFS/[facility] Advance Directives For more information, please contact: [phone] Type Date Recorded Patient Guard Manager Explanati on Advance Directives, Living Will 06/14/2019 6:11 PM and Medical Power of Associate Professor Of Chemistry
[2020-03-29] MEDS ORDERED: ACETAMINOPHEN 500 MG TAB PO PRN (12:46)
[2020-03-29] MEDS ORDERED: MORPHINE 2 MG/ML SYR IV PRN (12:52)
[2020-03-29] MEDS ORDERED: IPRATROPIUM BROM 0.5MG/2.5ML ONE (14:55)
[2020-03-29] MEDS ORDERED: ALBUTEROL 2.5 MG/3 ML NEB SOL ONE (14:55)
[2020-03-29] MEDS ORDERED: CALCIUM GLUCONATE 1 GM IVPB 1 GM/50 ML BAG IV ONE (14:56)
[2020-03-29] MEDS ORDERED: SODIUM BICARB 50 MEQ/50ML VIAL ONE (14:56)
[2020-03-29] MEDS ORDERED: CALCIUM GLUCONATE 1gm/100 ML NS (4.65 mEq/100mL) IV ONE ×2 (15:00)
--- NOTE | 2020-03-29 17:50 | P.CNS ---
Date of Consult: 03/29/20 Reason for Consult: hip fracture Primary Care Provider: angel Chief Complaint: hip ena History of Present Illness: This 79 yrs old Female presents to ER via EMS with complaints of Fall Injury. Details of fall: The patient fell from an upright position, while walking. Onset: today symptoms/episode began/occurred suddenly, just prior to arrival. Associated injuries: The patient sustained right hip injury decreased range of motion, obvious fracture, painful injury, swelling. Severity of symptoms: At their worst the symptoms were moderate, admitted with femoral neck fracture right hip. Allergies Penicillins Allergy (Severe, Verified 01/01/17 10:32) Hives codeine Adverse Reaction (Severe, Verified 01/01/17 10:32) Shortness of breath morphine Adverse Reaction (Severe, Verified 01/01/17 10:32) Shortness of breath PCN Allergy (Uncoded 01/01/17 10:32) Unknown Home Medications: Atorvastatin Calcium [Lipitor] 80 mg PO BEDTIME 10/04/13 Clopidogrel Bisulfate [Plavix*] 75 mg PO DAILY 10/04/13 Fenofibrate [Tricor*] 134 mg PO DAILY 10/04/13 Fluoxetine HCl [Prozac*] 20 mg PO DAILY 10/04/13 Amiodarone HCl [Pacerone] 200 mg PO BEDTIME 12/31/16 Aspirin [Aspirin EC 81 MG] 81 mg PO DAILY 12/31/16 Cetirizine HCl [Zyrtec] 5 mg PO DAILY 12/31/16 Docusate Sodium [Stool Softener] 100 mg PO BID 12/31/16 Gabapentin [Neurontin] 100 mg PO DAILY 12/31/16 Insulin Lispro [Humalog] 65 unit SQ DAILY 12/31/16 Multivit-Min/FA/Lycopen/Lutein [Centrum Silver Tablet] 1 each PO DAILY 12/31/16 Pantoprazole [Protonix Tab] 40 mg PO DAILY 12/31/16 Primidone [Mysoline] 50 mg PO BID 12/31/16 Ranitidine [Zantac] 150 mg PO DAILY 12/31/16 Sitagliptin Phosphate [Januvia] 50 mg PO DAILY 12/31/16 Spironolactone [Aldactone] 50 mg PO EVERY 3RD DAY 12/31/16 - Past Medical/Surgical History Diabetic: Yes -: CAD -: HTN -: MD -: IDDM -: Back -: Carpal Tunnel (R) -: Knee Replacement (R) -: Isra Cataract -: Choleycystectomy -: CABG -: Heart Cath - Social History Smoking Status: Never smoker Alcohol use: No CD- Drugs: No Caffeine use: Yes Review of Systems 10-point ROS is otherwise unremarkable Physical Examination Respiratory: Normal air movement Gastrointestinal: Soft and benign Musculoskeletal: Other (right hip pain) Laboratory Data (last 24 hrs) 03/29/20 11:55: PT 15.0 H, INR 1.28 03/29/20 11:55: Sodium 137, Potassium 5.6 H*, BUN 40 H, Creatinine 1.80 H, Glucose 200 H 03/29/20 11:55: WBC 7.8, Hgb 11.3 L, Hct 34.4 L, Plt Count 192 Imagings Data: right hip subcapital femoral neck fracture - Problems (1) Displaced fracture of right femoral neck Onset Date: ~03/29/20 Current Visit: Yes Status: Acute Plan: we will plan to do a hemiarthroplasty of the right hip at 1030 tomorrow if cleared
[2020-03-29] MEDS: ATORVASTATIN 20 MG TAB PO SCH (20:33)
[2020-03-29] MEDS: AMIODARONE HCL 200 MG TAB PO SCH (20:33)
[2020-03-29] MEDS: PRIMIDONE 50 MG TAB PO SCH (20:33)
[2020-03-29] MEDS ORDERED: D50W 25 GM/50 ML SYRINGE/VIAL IV PRN (20:35)
[2020-03-29] MEDS ORDERED: GLUCAGON 1 MG/VIAL IM PRN (20:35)
[2020-03-29] MEDS ORDERED: FENTANYL 25 MCG/PATCH TD SCH (21:00)
[2020-03-29] MEDS: INSULIN -REGULAR HUMAN 50 UNIT/0.5 ML ML SQ SCH (21:07)
[2020-03-29] MEDS: ONDANSETRON 4 MG/2 ML VIAL IV PRN (22:13)
[2020-03-30] MEDS: ONDANSETRON 4 MG/2 ML VIAL IV PRN (06:05)
[2020-03-30 06:28] LABS: Absolute Lymphocytes (CBC) 0.9 K/uL (0.7-4.9); Basophils % 0.7 % (0-1.3); Hematocrit 34.1 % (36.0-45.0); Lymphocytes % 7.6 % (15.3-44.8); MPV 9.9 fL (7.6-11.3); RBC Red Blood Cell Count 3.97 M/uL (3.86-4.86)
[2020-03-30 06:31] LABS: Potassium 5.2 mmol/L (3.5-5.1)
[2020-03-30] MEDS: INSULIN -REGULAR HUMAN 50 UNIT/0.5 ML ML SQ SCH ×4 (06:43→21:10)
[2020-03-30] MEDS ORDERED: FLUOXETINE 10 MG CAP PO SCH (09:00)
[2020-03-30] MEDS: FLUOXETINE 20 MG CAP PO SCH (09:00)
[2020-03-30] MEDS: FENOFIBRATE 160 MG TAB PO SCH (09:00)
[2020-03-30] MEDS: GABAPENTIN 100 MG CAP PO SCH (09:00)
[2020-03-30] MEDS: PANTOPRAZOLE 40MG TABLET PO SCH (09:00)
[2020-03-30] MEDS: PRIMIDONE 50 MG TAB PO SCH ×2 (09:00→21:09)
[2020-03-30] MEDS ORDERED: NA CHLORIDE 0.9% 1,000 ML ONE ×2 (09:42→11:56)
[2020-03-30] MEDS ORDERED: FENTANYL CITR 100 MCG/2 ML ONE ×2 (10:19→11:41)
[2020-03-30] MEDS ORDERED: LIDOCAINE 2% MPF 5 ML VIAL ONE (10:19)
[2020-03-30] MEDS ORDERED: propofoL 200 MG/20 ML VIAL IV ONE (10:19)
[2020-03-30] MEDS ORDERED: MIDAZOLAM HCL 2 MG/2 ML INJ ONE (10:19)
[2020-03-30] MEDS ORDERED: ROCURONIUM 50 MG/5 ML VIAL IV ONE (10:25)
[2020-03-30] MEDS ORDERED: dexAMETHasone 10 MG/ML VIAL ONE (10:25)
[2020-03-30] MEDS ORDERED: TRANEXAMIC ACID 1,000 MG in NA CHLORIDE 0.9% 50 ML IV SCH (10:45)
[2020-03-30] MEDS ORDERED: CEFAZOLIN/SWI 1gm 2 GM/20 ML SYR ONE (10:49)
[2020-03-30] MEDS ORDERED: EPHEDRINE SULF 50 MG/ML VIAL ONE (11:04)
[2020-03-30] MEDS ORDERED: Phenylephrine HCl 10 MG/ML 1 ML VIAL ONE (11:06)
--- NOTE | 2020-03-30 11:25 | CON ---
Date of Consultation: 03/30/2020 Reason For Consultation: Cardiac preop evaluation before hip surgery. History Of Present Illness: This is an 79-year-old female who presented to the emergency room after fall injury that sustained hip fracture and she was scheduled to have an ORIF today by Orthopedic chelle fletcher. I was asked to evaluate the patient for cardiac preop risk assessment. The patient has a long -standing history of cardiac problems including significant coronary artery disease where she had a q uadruple bypass surgery more than 20 years ago and followed by stent placement. Last stent was place d about [address] Delgado as per report. The patient is however asymptomatic at the present t uma. No chest pain. No significant resting shortness of breath and she climbs flight of stairs with out chest pain, but she can get short of breath slightly. At the present time, she has hip pain. De nies having any chest pain. No nausea, vomiting, or diarrhea. No other complaints. Denies having p alpitations. Past Medical History: 1.Coronary artery disease as outlined above. 2.Aortic valve disease status post aortic valve replacement. 3.She has history of congestive heart failure, non-insulin dependent diabetes, hypertension, history of ND, dyslipidemia, atrial fibrillation. Medications: Refer to reconciliation sheet for detailed list. Allergies: PENICILLIN, CODEINE, MORPHINE. Social History: She does not smoke or drink. Does not use any drugs. Family History: No premature coronary artery disease or cancer. Review of Systems: All systems reviewed, they were negative except for mentioned in the HPI. Physical Examination: Vital Signs: Temperature is 97.4, pulse 75, breathing 18, blood pressure 120/65, saturating 96% on r oom air. General: Pleasant elderly female, in no apparent distress. Head and Neck: Pupils are equal, react to light. Intact eye movements. No JVD. No cervical lympha denopathy. Neck: Supple. Thyroid is not enlarged. Lungs: Clear to auscultation bilaterally causing crackles. No accessory muscle use. Heart: Regular rate and rhythm. No extra sounds. Abdomen: Soft, nontender. Bowel sounds positive. No organomegaly. No masses or hernia. No rigidi ty or rebound. Extremities: No edema, clubbing, cyanosis. Intact pulses. Skin: No rashes. Neurologic: Alert, awake, and oriented x3. No acute process appreciated. Investigations: Creatinine 1.86, potassium is 5.2, white blood cell count 11.3, hemoglobin 11.1. Assessment And Plan: 1.Cardiac preop risk assessment. This patient has multiple risk factors including age, coronary art samson disease, diabetes, hypertension. She is, however, currently asymptomatic and her surgery is rat er urgent and I believe that we should proceed with the surgery without further cardiac workup at thi s point and monitor for any cardiac adverse effects closely. I will be available to re-consult to vi sit the patient in case of any symptoms, but at this point, she is at moderate cardiac risk for nonca rdiac surgery and no further cardiac workup is recommended due to the urgency of the surgery and the benefit of ambulating as soon as possible and the disadvantage of not treating her hip fracture. 2.Atrial fibrillation seems to be controlled. She needs anticoagulation, which can be restarted pos t surgery and I appreciate the courtesy of this consultation. /LC Voice ID: [id number] Report ID: [id number]
[2020-03-30] MEDS ORDERED: KETOROLAC 30 MG/ML INJ ONE (12:15)
[2020-03-30] MEDS ORDERED: HYDROCODONE/APAP 5/325 MG TAB PO PRN (12:45)
[2020-03-30] MEDS: NACHLORIDE 0.45% 1,000 ML IV SCH (13:00)
--- NOTE | 2020-03-30 13:06 | OP ---
Surgeon: Ceasar Lynch MD Medical Technologist: Dr. Brantley. Preoperative Diagnosis: Right hip femoral neck fracture. Postoperative Diagnosis: Right hip femoral neck fracture. Procedure Performed: Right hip hemiarthroplasty. Complications: None. Disposition: Recovery room, stable. Procedure In Detail: Patient was taken to the operative suite, placed in the supine position, induce d anesthesia. Right hip was prepped and draped in sterile fashion. Posterior approach to the hip ut ilized. Hemostasis was verified. Tensor fascia arminda split, external rotators elevated subperiosteal ly, tagged for later reattachment. Fractured femoral head delivered. Osteotomized 1 fingerbreadth a dayday the lesser trochanter. A 49 ball was delivered in reaming broach technique for the femur, was g iven a 14 mm stem, standard offset. A standard 28 mm ball gave excellent range of motion. Permanent implants placed. A layered closure performed including reattachment of external rotators through dr javier holes in bone. ROSS/LC Voice ID: [id number] Report ID: [id number]
--- NOTE | 2020-03-30 13:17 | RAD REPORT ---
EXAM DESCRIPTION: RAD - Pelvis - 03/30/2020 1:03 pm CLINICAL HISTORY: S P BIPOLAR RIGHT HIP Postsurgical right hip. COMPARISON: Pelvis dated 03/29/2020 FINDINGS: Right total hip arthroplasty has been performed. No unexpected finding. Skin betsy are p resent laterally.
[2020-03-30] MEDS ORDERED: FENTANYL 25 MCG/PATCH TD SCH (14:00)
[2020-03-30] MEDS: CEFAZOLIN/SWI 1gm 1 GM/10 ML SYR IV SCH (16:31)
[2020-03-30] MEDS: AMIODARONE HCL 200 MG TAB PO SCH (21:09)
[2020-03-30] MEDS: ATORVASTATIN 20 MG TAB PO SCH (21:09)
--- NOTE | 2020-03-30 21:30 | HP ---
Date of Admission: 03/29/2020 History Of Present Illness: 79-year-old female who tripped and fell at home from a standing position and she had right hip pain, came to the emergency room. She was found to have a right femoral neck transverse fracture. She was admitted for that. Review of Systems: Cardiovascular: No complaint. Respiratory: No complaint. Skeletomuscular: As above. Gastrointestinal: No complaints. Genitourinary: No complaint. Neurological: No complaint. Past Medical History: 1.Hypertension. 2.Hyperlipidemia. 3.Gastroesophageal reflux disease. 4.Type 2 diabetes. 5.Coronary artery disease. 6.Chronic renal insufficiency stage 3 from diabetes. 7.Resistant atrial fibrillation. 8.Secondary hyperparathyroidism from renal origin. Social History: No smoking, alcohol, or drug abuse history. Family History: Noncontributing. Medications: Primidone 50 mg p.o. daily, carvedilol 6.25 mg p.o. b.i.d., alprazolam 0.25 mg p.o. roque ly p.r.n., Tresiba 55 units daily subcutaneous, Fosamax 70 mg p.o. weekly, hydralazine 100 mg 3 times a day, atorvastatin 80 mg p.o. daily, furosemide 10 mg p.o. b.i.d., Januvia 50 mg p.o. daily, phenyl fibrate 1344 mg p.o. daily, fluoxetine 20 mg p.o. daily, gabapentin 300 mg p.o. at bedtime, furosemi de 40 mg p.o. daily. Allergies: CODEINE, MORPHINE, PENICILLIN, AND BACTRIM DS. Physical Examination: Vital Signs: Blood pressure 125/60, pulse 75, temperature 97.3. Heart: Irregular rate and rhythm. Chest: Clear to auscultation. Abdomen: Soft. Bowel sounds are normoactive. Extremities: No edema. No cyanosis. Peripheral pulses are felt. Right hip mild tenderness. Neurological: Alert, oriented, nonfocal. Grossly intact. Room air pulse oximetry 94. Laboratory Data: White cell count 11.3, hemoglobin 11.1, hematocrit 34.1, platelets 164. Chemistry; potassium 5.2, BUN 41, creatinine 1.86, GFR 26. Blood sugar fingersticks noted. Pelvic and hip x-r ay showed fracture of the surgical neck of the right femur. Chest x-ray and knee x-ray unrevealing. Assessment And Plan: 1.Right femoral neck fracture. Patient is being admitted for surgical correction. Dr. Ceasar faulkner was consulted. 2.Chronic medical problems delineated in her history of medical problems. We will continue the tod ent on her home medications. We will put her on a regular insulin sliding scale. I will check her b lood sugar fingersticks before meals and at bedtime. We will monitor her CBC and electrolytes. Look orders for details. MFS/MODL Voice ID: [id number]
[2020-03-31] MEDS: CEFAZOLIN/SWI 1gm 1 GM/10 ML SYR IV SCH (01:08)
[2020-03-31] MEDS: NACHLORIDE 0.45% 1,000 ML IV SCH (01:08)
[2020-03-31] MEDS: ENOXAPARIN 30 MG/0.3 ML SQ SCH (05:55)
[2020-03-31 06:09] LABS: Absolute Lymphocytes (CBC) 0.4 K/uL (0.7-4.9); Basophils % 0.1 % (0-1.3); Hematocrit 29.6 % (36.0-45.0); Lymphocytes % 2.8 % (15.3-44.8); MPV 10.5 fL (7.6-11.3); RBC Red Blood Cell Count 3.48 M/uL (3.86-4.86)
[2020-03-31 06:47] LABS: Potassium 5.3 mmol/L (3.5-5.1)
[2020-03-31] MEDS: INSULIN -REGULAR HUMAN 50 UNIT/0.5 ML ML SQ SCH ×4 (08:25→20:39)
[2020-03-31] MEDS: GABAPENTIN 100 MG CAP PO SCH (08:28)
[2020-03-31] MEDS: FENOFIBRATE 160 MG TAB PO SCH (08:28)
[2020-03-31] MEDS: FLUOXETINE 20 MG CAP PO SCH (08:28)
[2020-03-31] MEDS: PANTOPRAZOLE 40MG TABLET PO SCH (08:28)
[2020-03-31] MEDS: PRIMIDONE 50 MG TAB PO SCH ×2 (08:48→20:40)
[2020-03-31 09:48] LABS: Blood Morphology Comment NOTED (NOT SEEN); Ovalocytes 1+; Platelet Estimate DECR; Urine White Blood Cell Casts OK
[2020-03-31] MEDS: NA CHLORIDE 0.9% 1,000 ML IV SCH ×2 (12:22→20:39)
[2020-03-31] MEDS: ONDANSETRON 4 MG/2 ML VIAL IV PRN (16:21)
[2020-03-31] MEDS: NA CHLORIDE 0.9% 500 ML IV ONE ×2 (18:04→18:11)
--- NOTE | 2020-03-31 18:51 | P.PN ---
Subjective Date of Service: 03/31/20 Primary Care Provider: angel Chief Complaint: hip ena Review of Systems 10-point ROS is otherwise unremarkable Physical Examination - Vital Signs Temperature: 97.3 F Blood Pressure: 125/72 Pulse: 71 Respirations: 16 Pulse Ox (%): 98 - Physical Exam Musculoskeletal: Other (dressings c/d/i) - Studies 07/20 h/h Assessment And Plan - Current Problems (Diagnosis) (1) Displaced fracture of right femoral neck Onset Date: ~03/29/20 Current Visit: Yes Status: Acute Plan: we will plan to do a hemiarthroplasty of the right hip at 1030 tomorrow if cleared (2) S/P hip hemiarthroplasty Current Visit: Yes Status: Acute Plan: when she is safe and stable she can be discharged on anticoagulants for 28 days, follow up in the office 2 weeks post op
--- NOTE | 2020-03-31 20:34 | PN ---
Subjective: Patient is doing well postoperatively. Physical Examination: Vital signs: Blood pressure 105/60, pulse 75, temperature 98. Heart: Regular rate and rhythm. Chest: Clear to auscultation. Abdomen: Soft, benign. Neurological: Grossly intact. Laboratory Data: Blood sugar fingersticks noted 200-300. CBC, white cell count 13, hemoglobin 10, h ematocrit 26.9, platelets 131. Chemistry, potassium 5.3, sodium 131, BUN 49, creatinine 2.05. Assessment And Plan: 1.Hip fracture status post arthroplasty, doing well. I think the patient could be transferred [facility] regular floor. 2.Chronic renal insufficiency with acute exacerbation and an element of dehydration since after surg samson we will change her IV fluid to normal saline and I will follow up her basic metabolic. 3.Type 2 diabetes. Patient is on sliding scale. Expect to improve control with control of her pain in her fractures. 4.Rest of medical problems, stable. Look orders for details. MFS/MODL Voice ID: [id number] Report ID: [id number]
[2020-03-31] MEDS: AMIODARONE HCL 200 MG TAB PO SCH (20:39)
[2020-03-31] MEDS: ATORVASTATIN 80 MG TAB PO SCH (20:40)
[2020-04-01] MEDS: ENOXAPARIN 30 MG/0.3 ML SQ SCH (05:50)
[2020-04-01 06:08] LABS: Basophils % 0.3 % (0-1.3); Hematocrit 29.3 % (36.0-45.0); Lymphocytes % 8.3 % (15.3-44.8); MPV 10.7 fL (7.6-11.3); RBC Red Blood Cell Count 3.42 M/uL (3.86-4.86)
[2020-04-01 06:11] VITALS: BMI 29.7
[2020-04-01 06:22] LABS: Potassium 4.8 mmol/L (3.5-5.1)
[2020-04-01] MEDS: NA CHLORIDE 0.9% 1,000 ML IV SCH (07:33)
--- NOTE | 2020-04-01 08:12 | P.PN ---
Subjective Date of Service: 04/01/20 Primary Care Provider: angel Chief Complaint: hip ena Subjective: No new changes Review of Systems 10-point ROS is otherwise unremarkable Physical Examination - Vital Signs Temperature: 97.6 F Blood Pressure: 100/56 Pulse: 66 Respirations: 13 Pulse Ox (%): 96 - Physical Exam General: Oriented x3 Musculoskeletal: Other (cdi) Assessment And Plan - Current Problems (Diagnosis) (1) Displaced fracture of right femoral neck Onset Date: ~03/29/20 Current Visit: Yes Status: Acute Plan: we will plan to do a hemiarthroplasty of the right hip at 1030 tomorrow if cleared (2) S/P hip hemiarthroplasty Current Visit: Yes Status: Acute Plan: when she is safe and stable she can be discharged on anticoagulants for 28 days, follow up in the office 2 weeks post op
[2020-04-01] MEDS: INSULIN -REGULAR HUMAN 50 UNIT/0.5 ML ML SQ SCH ×4 (08:21→20:48)
[2020-04-01] MEDS: PANTOPRAZOLE 40MG TABLET PO SCH (08:21)
[2020-04-01] MEDS: FLUOXETINE 20 MG CAP PO SCH (08:21)
[2020-04-01] MEDS: GABAPENTIN 100 MG CAP PO SCH (08:21)
[2020-04-01] MEDS: FENOFIBRATE 160 MG TAB PO SCH (08:21)
[2020-04-01] MEDS: PRIMIDONE 50 MG TAB PO SCH ×2 (08:22→20:40)
[2020-04-01] MEDS ORDERED: HOME MED 1 EA UNK (Spironolactone [Aldactone] 50 MG) PO SCH (09:00)
--- NOTE | 2020-04-01 17:10 | PN ---
Date of Progress Note: 04/01/2020 Subjective: Patient is status post ORIF for hip fracture and she sustained episode of atrial fibrill ation spontaneously converted to sinus, doing well, evaluated by bedside. She has no complaints of c hest pain or shortness of breath. No palpitations. No other complaints. Review of Systems: Denies having chest pain, shortness of breath, orthopnea, or cough. No nausea, vomiting, or diarrhea . All other systems reviewed and are negative. Physical Examination: Vital Signs: Temperature is 97.0, pulse 65, breathing at 18, blood pressure is 113/58, saturating 98 % on room air. General: Pleasant, elderly female, in no apparent distress. Head and Neck: Pupils are equal, reactive to light. Intact eye movements. No JVD. No cervical lym phadenopathy. Neck is supple. Thyroid is not enlarged. Lungs: Clear to auscultation bilaterally. No rhonchi, rales, or crackles. No accessory muscle use. Heart: Regular rate and rhythm. No extra sounds. Abdomen: Soft, nontender. Bowel sounds positive. No organomegaly. No masses or hernia. No rigidi ty or rebound. Extremities: No edema, clubbing, cyanosis. Intact pulses. Skin: No rashes. Neurologic: Alert, awake, oriented x3. No acute focal deficits appreciated. Lymph Nodes: No cervical or axillary lymphadenopathy. Investigations: Sodium 130, BUN 66, creatinine 2.03. Assessment And Plan: 1.Paroxysmal atrial fibrillation back to sinus rhythm. Agree with the amiodarone. Patient is at hi gh risk for falling. She will not qualify for anticoagulation and at this point, she is back in sinu s rhythm. If blood pressure allows, we recommend low dose of beta alvina and maybe metoprolol 12.5 mg twice a day only if blood pressure allows and monitor closely. 2.Hip fracture, status post open reduction and internal fixation, did very well. SR/MODL Voice ID: [id number] Report ID: [id number]
[2020-04-01] MEDS: ATORVASTATIN 80 MG TAB PO SCH (20:39)
[2020-04-01] MEDS: AMIODARONE HCL 200 MG TAB PO SCH (20:40)
--- NOTE | 2020-04-01 21:14 | PN ---
Subjective: Patient is doing well. Has no complaints. Objective: Vital Signs: Blood pressure 115/60, pulse 66, temperature 96.2. Heart: Irregular rate a nd rhythm. Chest: Clear to auscultation. Abdomen: Soft, benign. Neurologic Examination: Alert, oriented, grossly intact. Extremities: No edema. No cyanosis. Laboratory Data: Blood sugar fingersticks in the 200s up to 300. White cell count 11.8, hemoglobin 9.9, hematocrit 29.3, platelets 164. Sodium 130, BUN 60, creatinine 2.03. Assessment/plan: 1.Postoperative hip replacement surgery. Patient clinically doing well. 2.Hypotension, corrected by giving the patient bolus of normal saline, IV fluid, and increasing the rate of normal saline IV fluid. 3.Acute renal failure on top of chronic, slightly improved. 4.Atrial fibrillation. Controlled rate. Cardiology was asked and the patient's home medications di d not disclose to be on anticoagulation. I think she needs to be on Eliquis or Pradaxa. We will see what Cardiology thinks about that. 5.Type 2 diabetes. Blood sugar fingersticks showing decreased numbers, better controlled. We will continue sliding scale. 6.Anemia of chronic illness with a slight drop in hemoglobin postoperatively. The patient hemodynam ically, however, is stable. Look orders for details. MFS/MODL Voice ID: [id number] Report ID: [id number]
[2020-04-01] MEDS: ONDANSETRON 4 MG/2 ML VIAL IV PRN (23:58)
[2020-04-02] MEDS: NA CHLORIDE 0.9% 1,000 ML IV SCH ×2 (02:41→15:00)
[2020-04-02] MEDS: ENOXAPARIN 30 MG/0.3 ML SQ SCH (05:48)
[2020-04-02 06:25] LABS: Basophils % 0.6 % (0-1.3); Hematocrit 28.6 % (36.0-45.0); Lymphocytes % 10.3 % (15.3-44.8); MPV 10.3 fL (7.6-11.3); RBC Red Blood Cell Count 3.35 M/uL (3.86-4.86)
[2020-04-02 06:46] LABS: Potassium 4.9 mmol/L (3.5-5.1)
[2020-04-02] MEDS: INSULIN -REGULAR HUMAN 50 UNIT/0.5 ML ML SQ SCH ×4 (08:43→20:31)
[2020-04-02] MEDS: PANTOPRAZOLE 40MG TABLET PO SCH (08:45)
[2020-04-02] MEDS: FLUOXETINE 20 MG CAP PO SCH (08:50)
[2020-04-02] MEDS: GABAPENTIN 100 MG CAP PO SCH (08:50)
[2020-04-02] MEDS: PRIMIDONE 50 MG TAB PO SCH ×2 (08:51→20:33)
[2020-04-02] MEDS: FENOFIBRATE 160 MG TAB PO SCH (08:51)
--- NOTE | 2020-04-02 09:27 | P.PN ---
Subjective Date of Service: 04/02/20 Primary Care Provider: angel Chief Complaint: hip ena Subjective: No new changes Physical Examination - Vital Signs Temperature: 98.6 F Blood Pressure: 112/56 Pulse: 67 Respirations: 16 Pulse Ox (%): 94 Assessment And Plan - Current Problems (Diagnosis) (1) Displaced fracture of right femoral neck Onset Date: ~03/29/20 Current Visit: Yes Status: Acute Plan: we will plan to do a hemiarthroplasty of the right hip at 1030 tomorrow if cleared (2) S/P hip hemiarthroplasty Current Visit: Yes Status: Acute Plan: when she is safe and stable she can be discharged on anticoagulants for 28 days, follow up in the office 2 weeks post op
[2020-04-02] MEDS ORDERED: ONDANSETRON 4 MG (ODT) TAB PO PRN (10:11)
--- NOTE | 2020-04-02 19:36 | PN ---
Subjective: The patient is doing well, has no complaints. She has off and on sometimes nausea, but no vomiting. Objective: Vital Signs: Blood pressure 112/56, pulse 67, temperature 98.6. Heart: Regular rate and rhythm. Chest: Clear to auscultation. Abdomen: Soft, benign. Bowel sounds are active. Extremities: No edema. No cyanosis. Peripheral pulses are felt. Neurologic: Alert, oriented, nonfocal. Grossly intact. Laboratory Data: White cell count 9.7, hemoglobin 9.6, hematocrit 28.6, platelets 195, BUN 60, creat inine 1.91, GFR 25. Assessment And Plan: 1.Hypotension, resolved with IV fluids. 2.Postoperative hip fracture surgery, hemodynamically stable. 3.Atrial fibrillation. The patient is on Lovenox. Her rate is controlled per 5. The patient parti cipated in physical therapy and will continue the rest of her chronic treatment and management, clini leslie stable. MFS/MODL Voice ID: [id number] Report ID: [id number]
[2020-04-02] MEDS: AMIODARONE HCL 200 MG TAB PO SCH (20:33)
[2020-04-02] MEDS: ATORVASTATIN 80 MG TAB PO SCH (20:33)
[2020-04-02] MEDS: TRAMADOL HCL 50 MG TAB PO PRN (23:13)
[2020-04-03] MEDS: ENOXAPARIN 30 MG/0.3 ML SQ SCH (05:19)
[2020-04-03 06:03] LABS: Basophils % 0.9 % (0-1.3); Hematocrit 28.4 % (36.0-45.0); MPV 10.8 fL (7.6-11.3)
[2020-04-03 06:50] LABS: Potassium 5.3 mmol/L (3.5-5.1)
[2020-04-03] MEDS: INSULIN -REGULAR HUMAN 50 UNIT/0.5 ML ML SQ SCH ×4 (07:30→20:31)
[2020-04-03] MEDS: GABAPENTIN 100 MG CAP PO SCH (08:08)
[2020-04-03] MEDS: PRIMIDONE 50 MG TAB PO SCH ×2 (08:08→20:31)
[2020-04-03] MEDS: FLUOXETINE 20 MG CAP PO SCH (08:08)
[2020-04-03] MEDS: FENOFIBRATE 160 MG TAB PO SCH (08:08)
[2020-04-03] MEDS: PANTOPRAZOLE 40MG TABLET PO SCH (08:08)
--- NOTE | 2020-04-03 18:49 | PN ---
Subjective: The patient is feeling well. No new complaint. Objective: Vital Signs: Blood pressure 125/58, pulse 72, temperature 97. Heart: The patient now seems to have regular rate and rhythm. Chest: Clear to auscultation. Abdomen: Soft, benign. Neurologic: Alert, oriented, nonfocal. Grossly intact. Extremities: No edema. No cyanosis. Peripheral pulses are felt. Laboratory Data: White cell count 7.9, hemoglobin 9.4, hematocrit 28.4, platelets 201. Potassium 5. 3, chloride 111, bicarb 20, BUN 49, creatinine 1.52. Blood sugar fingersticks noted between 223 and 135. Assessment/plan: 1.Status post hip arthroplasty, doing well postoperatively. We will ask Rehab for a consult. Emi pierre needs to be on a physical therapy program to put her back on her feet and walking. Pending their consult on that. We will continue current treatment. 2.Acute renal failure on top of chronic. Patient is doing well with improved GFR. 3.Type 2 diabetes. We will continue her on the sliding scale. Rest of her medical problems stable. Look orders for details. MFS/MODL Voice ID: [id number] Report ID: [id number]
[2020-04-03] MEDS: ATORVASTATIN 80 MG TAB PO SCH (20:31)
[2020-04-03] MEDS: AMIODARONE HCL 200 MG TAB PO SCH (20:31)
[2020-04-04] MEDS: ENOXAPARIN 30 MG/0.3 ML SQ SCH (05:17)
[2020-04-04 06:07] LABS: Potassium 4.8 mmol/L (3.5-5.1)
[2020-04-04] MEDS: FLUOXETINE 20 MG CAP PO SCH (09:08)
[2020-04-04] MEDS: FENOFIBRATE 160 MG TAB PO SCH (09:08)
[2020-04-04] MEDS: INSULIN -REGULAR HUMAN 50 UNIT/0.5 ML ML SQ SCH ×4 (09:08→20:55)
[2020-04-04] MEDS: GABAPENTIN 100 MG CAP PO SCH (09:08)
[2020-04-04] MEDS: PANTOPRAZOLE 40MG TABLET PO SCH (09:08)
[2020-04-04] MEDS: PRIMIDONE 50 MG TAB PO SCH ×2 (09:08→20:46)
--- NOTE | 2020-04-04 18:26 | PN ---
Subjective: The patient is doing well. Has no new complaint. Objective: Vital Signs: Her blood pressure 150/65, pulse 60, temperature 97.3. Heart: Regular rate and rhythm. Chest: Clear to auscultation. Abdomen: Soft, benign. Neurologic: Alert, oriented. Grossly intact. Diagnostic Studies: Blood sugar fingersticks noted in the 200s. Chem-7 noted today with a BUN 39, c reatinine 1.32, and GFR 39. Assessment And Plan: Status post right hip arthroplasty, doing well. Participating with Physical [facility]. We are waiting on insurance approved plan for physical therapy with her in the hospital in e rehab floor or as per insurance company. Meanwhile, we will continue current treatment. Her acute renal failure on top of chronic has improved. Her blood sugar is better controlled. At this time a s mentioned, we are waiting on the insurance company. Look orders for details. MFS/MODL Voice ID: [id number] Report ID: [id number]
[2020-04-04] MEDS: ATORVASTATIN 80 MG TAB PO SCH (20:46)
[2020-04-04] MEDS: AMIODARONE HCL 200 MG TAB PO SCH (20:46)
[2020-04-04] MEDS: APIXABAN 2.5 MG TABLET PO SCH (20:46)
[2020-04-04] MEDS: TRAMADOL HCL 50 MG TAB PO PRN (23:02)
[2020-04-05] MEDS: INSULIN -REGULAR HUMAN 50 UNIT/0.5 ML ML SQ SCH ×4 (07:30→21:22)
[2020-04-05] MEDS: PANTOPRAZOLE 40MG TABLET PO SCH (09:36)
[2020-04-05] MEDS: PRIMIDONE 50 MG TAB PO SCH ×2 (09:36→21:21)
[2020-04-05] MEDS: APIXABAN 2.5 MG TABLET PO SCH ×2 (09:36→21:21)
[2020-04-05] MEDS: GABAPENTIN 100 MG CAP PO SCH (09:36)
[2020-04-05] MEDS: FENOFIBRATE 160 MG TAB PO SCH (09:37)
[2020-04-05] MEDS: FLUOXETINE 20 MG CAP PO SCH (09:37)
--- NOTE | 2020-04-05 15:00 | PN ---
Subjective: The patient has no new complaints. Objective: Vital Signs: Blood pressure 148/64, pulse 60, temperature 97.1. Heart: Regular rate and rhythm. Chest: Clear to auscultation. Abdomen: Soft, benign. Extremities: No edema or cyanosis. Neurologic: Alert, oriented, nonfocal. Grossly intact. Diagnostic Studies: Blood sugar fingersticks noted between 194 and 134. Assessment/plan: 1.Postoperative care for right hip arthroplasty. The patient is currently stable and doing well. P articipating with physical therapy. Pending transfer to a senior care facility with physical the rapy. 2.Type 2 diabetes, better control. 3.We will change the patient back to her home medication, Eliquis 2.5 b.i.d. for her postoperative a nticoagulation. Also, the patient on that because of her paroxysmal atrial fibrillation history. 4.The patient is clinically stable, pending transfer. MFS/MODL Voice ID: [id number] Report ID: [id number]
[2020-04-05] MEDS: ATORVASTATIN 80 MG TAB PO SCH (21:21)
[2020-04-05] MEDS: AMIODARONE HCL 200 MG TAB PO SCH (21:21)
[2020-04-06] MEDS: INSULIN -REGULAR HUMAN 50 UNIT/0.5 ML ML SQ SCH ×4 (07:30→21:05)
[2020-04-06] MEDS: FLUOXETINE 20 MG CAP PO SCH (08:35)
[2020-04-06] MEDS: APIXABAN 2.5 MG TABLET PO SCH ×2 (08:35→21:05)
[2020-04-06] MEDS: FENOFIBRATE 160 MG TAB PO SCH (08:35)
[2020-04-06] MEDS: PANTOPRAZOLE 40MG TABLET PO SCH (08:35)
[2020-04-06] MEDS: GABAPENTIN 100 MG CAP PO SCH (08:35)
[2020-04-06] MEDS: PRIMIDONE 50 MG TAB PO SCH ×2 (08:36→21:05)
[2020-04-06] MEDS: TRAMADOL HCL 50 MG TAB PO PRN (10:13)
--- NOTE | 2020-04-06 17:10 | PN ---
Subjective: The patient is doing well. No new complaint. Objective: Vital Signs: Blood pressure 150/70, pulse 54, temperature 97, room air pulse oximetry 96 . Rest of her physical exam, she is doing well, has no change. Laboratory Data: Her blood sugar fingersticks noted to be in the 200s. Assessment And Plan: Status post right hip arthroplasty. The patient is doing well. Pending transf er to a [facility] facility for physical therapy. Meanwhile, we will continue current treatment and management. MFS/MODL Voice ID: [id number] Report ID: [id number]
[2020-04-06] MEDS: AMIODARONE HCL 200 MG TAB PO SCH (21:04)
[2020-04-06] MEDS: ATORVASTATIN 80 MG TAB PO SCH (21:05)
[2020-04-07] MEDS: GABAPENTIN 100 MG CAP PO SCH (09:20)
[2020-04-07] MEDS: FLUOXETINE 20 MG CAP PO SCH (09:20)
[2020-04-07] MEDS: APIXABAN 2.5 MG TABLET PO SCH ×2 (09:21→20:01)
[2020-04-07] MEDS: INSULIN -REGULAR HUMAN 50 UNIT/0.5 ML ML SQ SCH ×4 (09:21→21:56)
[2020-04-07] MEDS: FENOFIBRATE 160 MG TAB PO SCH (09:21)
[2020-04-07] MEDS: PRIMIDONE 50 MG TAB PO SCH ×2 (09:21→20:01)
[2020-04-07] MEDS: PANTOPRAZOLE 40MG TABLET PO SCH (09:25)
[2020-04-07] MEDS: ATORVASTATIN 80 MG TAB PO SCH (20:01)
[2020-04-07] MEDS: AMIODARONE HCL 200 MG TAB PO SCH (20:02)
[2020-04-08 00:07] VITALS: O2SAT 96
[2020-04-08 01:46] VITALS: BP 132/64; TEMP 97
--- NOTE | 2020-04-18 03:55 | DS ---
Date of Discharge: 04/08/2020 History: An 79-year-old female who tripped at home and encountered a right femur hip fracture at the femoral neck transverse. She was admitted for that. Past Medical History: As per admit note. Social History: As per admit note. Family History: As per admit note. Medications: As per admit note. Allergies: PER ADMIT NOTE. Physical Examination: As per admit note. Diagnostic Data: As per admit note. Hospital Course: The patient was admitted to the hospital with a femoral neck fracture. Dr. Bakari borden was consulted. He went ahead and did ORIF surgery on the right hip. The patient postoperative cou rse was uneventful. She also continued on her home medications for chronic medical illnesses and was put on regular insulin sliding scale for her diabetes. We monitored the electrolytes and CBC. The patient continued to improve, started working with physical therapy after surgery. Radiology [employer] w as consulted. The patient needed to have continued physical therapy and assisted facility was agreed upon by her insurance and since she was stable, we thought that we will discharge the patient by transferring her today to the assisted facility with physical therapy. Look discharge orders for details. MFS/MODL Voice ID: [id number] Report ID: [id number]
== END 2020-04-08 01:00 | DRG 470 ==
LOC: ER 11:00 → ERHOLD 16:59 → 2ND 17:11 → 3RD-ICU 03-30 12:54 → 2ND 04-01 12:25
PROVIDERS: ADMIT Internal Medicine; ATTEND Internal Medicine
PROC: 0SRR0JZ Replacement of Right Hip Joint, Femoral Surface with Synthetic Substitute, Open Approach (ICD-10-PCS; principal; 2020-03-30 11:45)
DX: S72.091A Other fracture of head and neck of right femur, initial encounter for closed fracture (principal); N25.81 Secondary hyperparathyroidism of renal origin; N17.9 Acute kidney failure, unspecified; E78.5 Hyperlipidemia, unspecified; K21.9 Gastro-esophageal reflux disease without esophagitis; I25.10 Atherosclerotic heart disease of native coronary artery without angina pectoris; I12.9 Hypertensive chronic kidney disease with stage 1 through stage 4 chronic kidney disease, or unspecified chronic kidney disease; E11.22 Type 2 diabetes mellitus with diabetic chronic kidney disease; N18.3 Chronic kidney disease, stage 3 (moderate); W01.0XXA Fall on same level from slipping, tripping and stumbling without subsequent striking against object, initial encounter; Z79.899 Other long term (current) drug therapy; Z79.4 Long term (current) use of insulin; Z88.1 Allergy status to other antibiotic agents; Z88.5 Allergy status to narcotic agent; Z88.0 Allergy status to penicillin; I25.2 Old myocardial infarction; Z79.02 Long term (current) use of antithrombotics/antiplatelets; Z79.82 Long term (current) use of aspirin; Z96.651 Presence of right artificial knee joint; Z90.49 Acquired absence of other specified parts of digestive tract; Z95.1 Presence of aortocoronary bypass graft; Z11.59 Encounter for screening for other viral diseases; I95.9 Hypotension, unspecified; D63.8 Anemia in other chronic diseases classified elsewhere; I48.0 Paroxysmal atrial fibrillation
CPT/HCPCS: 36415; 71045; 72170; 80048; 82947; 85025; 85610; 88305; 88311; 93005; 96365; 96375; 97110; 97112; 97116; 97163; 97530; 99285; G0390; J0610; J0690; J1100; J1650; J2250; J2370; J2405; J2704; J3010; J7030; U0002

== ENCOUNTER 2020-05-20 17:29 | Emergency (ER) | payer OTHER ==
--- OUTSIDE RECORDS SUMMARY | 2020-05-20 17:32 | XMS REPORT | Clinical Summary ---
:1940 Author Organization [facility] Address [address] [place] [address] Care Team Providers Name Role Phone Unavailable Primary Care Provider Unavailable Allergies Not on File Medications Not on file Active Problems Not on file Encounters Date Type Specialty Care Team Description 03/30/2020 Lab Requisition Lab after 05/20/2019 Social History Tobacco Use Types Packs/Day Years Used Date Never Assessed Sex Assigned at Date Recorded Not on file Job Start Date Occupation Industry Not on file Not on file Not on file Travel History Travel Start Travel End No recent travel history available. Last Filed Vital Signs Not on file Plan of Treatment Not on file Procedures Procedure Name Priority Date/Time Associated Diagnosis Comme nts SARS-COV2/RT-PCR Routine 03/29/2020 9:15 PM Resu lts for this ([facility]) CDT procedure are in the results section. after 05/20/2019 Results SARS-CoV2/RT-PCR ([facility]) (03/29/2020 9:15 PM CDT) SARS-COV2/RT-PCR Negative Not Detected, Negative [facility] SARS-COV-2 PERFORMING LAB [facility] Specimen Other Narrative Performed At Negative result for this test determines that [facility] SARS-CoV-2 RNA was not present in the specimen above the Limit of Detection (LOD).However, Negative results do not preclude SARS-CoV-2 infection and should not be used as the sole basis for treatment or patient management decisions. Negative results must be combined with clinical observations, patient history, and epidemiological information. A false negative result may occur if a specimen is improperly collected, transported or handled.A false negative result should be considered if patient's recent exposures or clinical presentation indicate that COVID-19 (SARS-CoV-2) is likely and diagnostic tests for other causes of illness are negative.Re-testing should be considered in cases of suspected false negatives. The limit of detection for this assay is 800 copies/mL. This SARS CoV-2 test is a real-time RT-PCR test intended for the qualitative detection of nucleic acid from SARS-CoV-2 in a nasopharyngeal swab specimen collected from individuals suspected of COVID-19 by their healthcare provider. This test has not been Food and Drug Administration (FDA) cleared or approved.This is a modified version of an approved Emergency Use Authorization (EUA) and is in the process of review by the FDA. Once authorized by the FDA, the issued EUA will be effective until the declaration that circumstances exist justifying the authorization of the emergency use of in vitro diagnostic tests for detection and/or diagnosis of COVID-19 is terminated under Section 564(b)(2) of the Act or the EUA is revoked under Section 564(g) of the Act. Fact Sheet for Healthcare Providers: https://www.[employer]/sites/default/files/pro duct/documents/Fact_Sheet_HC_Providers_Lyra_SA RS-CoV-2.pdf Fact Sheet for Healthcare Patients: https://www.[employer]/sites/default/files/pro duct/documents/Fact_Sheet_Patients_Lyra_SARS-C oV-2.pdf Performing Laboratory: [address] [address] Performing Organization Address City/State/Zipcode Phone Number [facility] [address] [place] [phone] CENTER after 05/20/2019
--- OUTSIDE RECORDS SUMMARY | 2020-05-20 17:32 | XMS REPORT | Clinical Summary ---
:1940 Author Organization [place] [facility] Address [address] [place] [address] Care Team Providers Name Role Phone Asked, [...] of insulin (HCC) 06/14/2019 Intake Access after 05/20/2019 Immunizations Name Administration Dates Next Due FLUCELVAX [...] of 2 - PCV13) 2003 INFLUENZA VACCINE 06/22/2020 06/24/2019 Procedures Procedure Name Priority Date/Time Associated [...] DOPPLER AM CDT procedur e are in ([id number]) the results section. PARTIAL THROMBOPLASTIN STAT 06/18/2019 [...] procedure are i n the results section. CA INSERT Routine 06/15/2019 11:39 Cardiogenic shock Result s for this CATH,ART,PERCUT,SHORTTE PM CDT ([facility]) procedure are in RM Atrial the results fibrillation, section. unspecified type ([facility]) CA INSERT NON-TUNNEL CV Routine 06/15/2019 11:37 Cardiogenic s hock Results for this CATH PM CDT ([facility]) procedure are i n the [...] are i n the results section. after 05/20/2019 Results POC glucose (06/24/2019 11:42 AM CDT)Only the most recent of41 resultswithin the time period is included. Pathologist Sig nature POC glucose 165 (H) 65 - 99 mg/dL [facility] Comment: [facility] Notified RN Meter ID: [id number] Oncology Social Work: Sher Barrios Specimen Performing Organization Address City/State/Zipcode Phone Number [facility] DEPARTMENT OF PATHOLOGY AND [address] [place], [place] [address] GENOMIC MEDICINE [address] [address] Estimated GFR (06/24/2019 5:57 AM CDT)Only the most recent of15 resultswithin the time period is included. Estimated GFR 28 (A) mL/min/1.73 [facility] Comment: HOSPITAL Catergory Units Interpretation G1 >=90 [...] specimen Performing Organization Address City/State/Zipcode Phone Number [facility] DEPARTMENT OF PATHOLOGY AND [address] [place], [place] [address] GENOMIC MEDICINE [facility] [address] [place] [address] CBC with platelet and differential (06/24/2019 5:57 AM CDT)Only the most recent of12 resultswithin the time period is included. WBC 7.22 4.50 - 11.00 [facility] k/uL HOSPITAL RBC 3.37 (L) 4.20 - 5.50 [facility] m/uL [facility] HGB 9.4 (L) 12.0 - 16.0 [facility] g/dL [facility] HCT 30.9 (L) 37.0 - 47.0 % [facility] MCV 91.7 82.0 - 100.0 [facility] MCH 27.9 27.0 - 34.0 pg [facility] MCHC 30.4 (L) 31.0 - 37.0 [facility] gdL [facility] RDW - SD 60.5 (H) 37.0 - 55.0 fL [facility] MPV 11.6 8.8 - 13.2 fL [facility] Platelet count 246 150 - 400 k/uL [facility] Nucleated RBC 0.00 /100 WBC [facility] Neutrophils 71.7 (H) 39.0 - 69.0 % [facility] Lymphocytes 11.5 (L) 25.0 - 45.0 % [facility] Monocytes 12.2 (H) 0.0 - 10.0 % [facility] Eosinophils 2.9 0.0 - 5.0 % [facility] Basophils 0.6 0.0 - 1.0 % [facility] Immature granulocytes 1.1 0.0 - 1.0 % [facility] (H)Comment: HOSPITAL "Immature granulocytes" (promyelocytes , myelocytes, metamyelocytes ) Specimen Blood Performing Organization Address City/[facility] Phone Number [facility] DEPARTMENT OF PATHOLOGY AND [address] [place] [address] [place] [address] Phosphorus level (06/24/2019 5:57 AM CDT)Only the most recent of9 resultswithin the time period is included. Pathologist Sig nature Phosphorus 2.7 2.4 - 4.5 mg/dL [facility] L Specimen Plasma specimen Performing Organization Address [facility] Phone Number [facility] DEPARTMENT OF PATHOLOGY AND [address] [place] [address] [place] [address] Magnesium level (06/24/2019 5:57 AM CDT)Only the most recent of11 resultswithin the time period is included. Pathologist Sig nature Magnesium 1.8 1.6 - 2.4 mg/dL [facility] Specimen Plasma specimen Performing Organization Address [facility] Phone Number [facility] DEPARTMENT OF PATHOLOGY AND [address] [place] [address] [phone] [address] Basic metabolic panel (06/24/2019 5:57 AM CDT)Only the most recent of8 results within the time period is included. Pathologist Sig nature Sodium 142 135 - 148 mEq/L [facility] Potassium 3.9 3.5 - 5.0 mEq/L [facility] Chloride 101 98 - 112 mEq/L [facility] CO2 27 24 - 31 mEq/L [facility] Anion gap 14@ANIO 7 - 15 mEq/L [facility] BUN 41 (H) 8 - 23 mg/dL [facility] Creatinine 1.69 (H) 0.50 - 0.90 mg/dL [facility] Glucose 164 (H) 65 - 99 mg/dL [facility] Calcium 9.5 8.8 - 10.2 mg/dL [facility] Specimen Plasma specimen Performing Organization Address [facility] Phone Number [facility] DEPARTMENT OF PATHOLOGY AND [address] [place] [address] [place] [address] XR Chest 1 Vw Portable (06/23/2019 11:48 AM CDT)Only the most recent of6 results within the time period is included. Specimen Narrative Performed At EXAMINATION: XR CHEST 1 VW PORTABLE RADIBANNER CLINICAL HISTORY: SOB COMPARISON: June 18, 2019 [...] lung bases with no definite infiltr ate. [facility]-[id number] Procedure Note Interface, Radiology Results Incoming - [...] both lung bases with no definite infiltrate. [facility]-[id number] Performing Organization Address City/State/Zipcode Phone Number [facility] [address] [place] [phone] Partial thromboplastin time, activated (06/22/2019 5:30 AM CDT)Only the most recent of14 resultswithin the time period is included. Pathologist [facility] PTT 35.2 23.0 - 36.0 [facility] Comment: [facility] PTT therapeutic range for unfractionated heparin is 61.0-112.0 seconds which corresponds to Anti-Xa 0.3-0.7 U/ml. Specimen Blood Performing Organization Address City/State/Zipcode Phone Number [facility] DEPARTMENT OF PATHOLOGY AND [address] [place] [address] [phone] [address] Ionized calcium (06/22/2019 4:00 AM CDT)Only the most recent of3 resultswithin the time period is included. Pathologist Sig nature pH 7.51 [facility] Ionized calcium 1.07 (L) 1.11 - 1.32 [facility] mmol/L [facility] Specimen Plasma specimen Performing Organization Address City/[facility] Phone Number [facility] DEPARTMENT OF PATHOLOGY AND [address] [place] [phone] Digoxin level (06/22/2019 4:00 AM CDT)Only the most recent of6 resultswithin the time period is included. Digoxin 0.9 0.8 - 2.0 ng/mL [facility] Comment: HOSPITAL For valid Digoxin results, at least 6 hours should anthony pse between time of last dose and collection of blood. Otherwise, result may be false high. Therapeutic Range: 0.8 - 2.0 ng/mL Specimen Plasma specimen Performing Organization Address [facility] Phone Number [facility] DEPARTMENT OF PATHOLOGY AND [address] [place] [address] LDH (06/21/2019 4:00 AM CDT)Only the most recent of3 resultswithin the time period is included. Pathologist Sig nature LDH 273 (H) 87 - 225 U/L [facility] Specimen Plasma specimen Performing Organization Address [facility] Phone Number [facility] DEPARTMENT OF PATHOLOGY AND [address] [place] [address] ECG 12 lead (06/19/2019 6:41 AM CDT)Only [...] available-Electronicall y Signed By Ramin Hill MD ([id number]) on 06/20/2019 5:53:08 PM Specimen Narrative Performed At This result has an attachment that is no t available. Performing Organization Address City/[facility] Phone Number [facility] MUSE [address] [place] [address] Troponin (06/19/2019 4:00 AM CDT)Only the most recent of9 resultswithin the time period is included. Troponin 2.139 (HH) 0.000 - 0.040 [facility] Comment: ng/mL [facility] changed methodology eff ective: 01/26/2019 at 10:00 am The new method has a 99th percentile cutoff of 0.040 n g/mL Specimen Plasma specimen Performing Organization Address City/[facility] Phone Number [facility] DEPARTMENT OF PATHOLOGY AND [address] [place] [address] [phone] [address] Manual differential (06/19/2019 4:00 AM CDT) Manual differential PERFORMED [facility] Neutrophils 80.0 (H) 39.0 - 69.0 % [facility] Lymphocytes 10.0 (L) 25.0 - 45.0 % [facility] Monocytes 8.0 0.0 - 10.0 % [facility] Eosinophils 1.0 0.0 - 5.0 % [facility] Basophils 1.0 0.0 - 1.0 % [facility] Metamyelocytes 0 % [facility] Promyelocytes 0 % [facility] Platelet slide review Watson slt decr [facility] Anisocytosis Moderate [facility] Polychromasia Moderate [facility] Ovalocytes Moderate [facility] Specimen Narrative Performed At __TROP_ results called to and read back by [facility] DEPARTM ENT OF PATHOLOGY AND GENOMIC AFUA FULTON\\[id number](name/location) at __ 06/19/2019 06:16 (date/time) by RAJENDRA_. Performing Organization Address [facility]/Zipcode Phone Number [facility] DEPARTMENT OF PATHOLOGY AND [address] [place] [address] [phone] [address] Lactic acid level (06/19/2019 4:00 AM CDT)Only the most recent of7 results within the time period is included. Pathologist Sig nature Lactic acid 0.9 0.5 - 2.2 mmol/L [facility] Specimen Plasma specimen Performing Organization Address City/State/Zipcode Phone Number [facility] DEPARTMENT OF PATHOLOGY AND [address] [place] [address] [phone] [address] Comprehensive metabolic panel (06/19/2019 4:00 AM CDT)Only the most recent of7 resultswithin the time period is included. Sodium 138 135 - 148 [facility] mEq/L [facility] Potassium 4.1 3.5 - 5.0 [facility] mEq/L [facility] Chloride 99 98 - 112 [facility] mEq/L [facility] CO2 25 24 - 31 mEq/L [facility] Anion gap 14@ANIO 7 - 15 mEq/L [facility] BUN 37 (H) 8 - 23 mg/dL [facility] Creatinine 1.90 (H) 0.50 - 0.90 [facility] mg/dL [facility] Glucose 137 (H) 65 - 99 mg/dL [facility] Calcium 8.5 (L) 8.8 - 10.2 [facility] mg/dL [facility] Protein 6.3 6.3 - 8.3 [facility] Comment: g/dL HOSPITAL [place] 4.6-7.0 g/dL 1 week 4.4-7.6 g/dL 7 months-1year 5.1-7.3 g/dL 1-2 years 5.6-7.5 g/dL >3 years 6.0-8.0 g/dL 18-150 6.3-8.3 g/dL Albumin 3.9 3.5 - 5.0 [facility] g/dL [facility] A/G ratio 1.6 0.7 - 3.8 [facility] Alkaline phosphatase 49 35 - 104 U/L [facility] AST 623 (H) 10 - 35 U/L [facility] ALT 606 (H) 5 - 50 U/L [facility] Total bilirubin 1.0 0.0 - 1.2 [facility] mg/dL HOSPITAL Specimen Plasma specimen Performing Organization Address City/State/Zipcode Phone Number [facility] DEPARTMENT OF PATHOLOGY AND [address] [place], [place] [address] [address] Hemoglobin & hematocrit (06/19/2019 1:30 AM CDT)Only the most recent of2 resultswithin the time period is included. Pathologist Sig nature HGB 9.4 (L) 12.0 - 16.0 g/dL [facility] HCT 30.3 (L) 37.0 - 47.0 % [facility] Specimen Blood Performing Organization Address [facility] Phone Number [facility] DEPARTMENT OF PATHOLOGY AND [address] [place] [address] Activated clotting time (06/18/2019 2:41 PM CDT) Activated clotting 139 96 - 152 sec [facility] Comment: HOSPITAL Meter ID: [id number] Oncology Social Work: Liz Brennan Specimen Performing Organization Address [facility] Phone Number [facility] DEPARTMENT OF PATHOLOGY AND [address] [place] [address] O2 saturation, venous (06/18/2019 11:48 AM CDT)Only the most recent of3 results within the time period is included. Pathologist Sig nature Hemoglobin, venous, 8.9 (L) 12.0 - 16.0 g/dL [facility] O2 saturation, 78 (H) 40 - 70 % [facility] Specimen Blood Performing Organization Address [facility] Phone Number [facility] DEPARTMENT OF PATHOLOGY AND [address] [place], [place] [phone] Echocardiogram complete w contrast and 3D if needed (06/18/2019 1:45 AM CDT) Specimen Narrative Performed At [facility] Echo cardiography Report [address] [place] [address] Pat.Name: NASIR DAS Pat.ID: [id number] .Date: 06/18/2019 Refer.MD: KEO DELGADO MD Exam Time: 1:34:00 AM Study Type:R outine Echo Height: 67in BSA: 1.96 m2 Age: 1 1940,78Y Sex: FEMALE BP: 105/54 HR: 76 bpm Sonogrphr: FARHAD Nguyễn Pat. Stat.:Inpat ient Room: [facility] Study [address] atus:Final Echo Event ID:[id number] Order ID: [id number] Reason for Study:CHF History / Clinical:Coronary Artery [...] of 15 mmHg. MEASUREMENTS: 2D Parasternal Long [place] Ao Rtd 3.5 cm Index 1.8 cm/m2 [...] 86.8 cm AV mnVel 306.6 cm/s AVpkAcRt 09511.4 cm/s AV pkPG 69.7 mmHg AV DeRt [...] 2018 11:03 AM CDT Echocardiography Report [address] [place] [address] Pat.Name: NASIR DAS Pat.I D: [id number] .Date: 06/18/2019 Refer .MD: KEO DELGADO MD Exam Time: 1:34:00 AM Study Type:Routine Echo Height: 67in BSA: 1.96 m2 Age: 1 1940,78Y Sex: FEMALE BP: 105/54 HR: 76 bpm Sonogrphr: FARHAD Nguyễn Pat. Stat.:Inpatient Room: [place] [address] Study Status:Final Echo Event ID:[id number] Order ID: [id number] Reason for Study:CHF History / Clinical:Coronary Artery [...] of 15 mmHg. MEASUREMENTS: 2D Parasternal Long [place] Ao Rtd 3.5 cm Inde x 1.8 [...] cm AV mnVel 306.6 cm/s AVpk AcRt 69144.4 cm/s AV pkPG 69.7 mmHg AV D [...] AM Keo Clifford MD Performing Organization Address City/[facility]/Zipcode Phone Number [facility] [address] [place] [address] XR Abdomen 1 Vw Portable (06/17/2019 9:38 [...] es 5 mm. Bladder probe is seen. [id number] Procedure Note Interface, Radiology Results Incoming - [...] measures 5 mm. Bladder probe is seen. [id number] Performing Organization Address City/[facility]/Zipcode Phone Number [facility] [address] [place] [address] Total iron binding capacity (06/17/2019 3:30 AM CDT) Pathologist Sig nature Iron level 30 (L) 37 - 145 ug/dL [facility] Iron binding capacity 249 200 - 400 ug/dL [facility] % Saturation 12.0 (L) 15.0 - 38.0 % [facility] Specimen Plasma specimen Performing Organization Address City/[facility]/Zipcode Phone Number [facility] DEPARTMENT OF PATHOLOGY AND [address] [place] [address] [phone] [address] Vitamin D 25 hydroxy level (06/17/2019 3:30 AM CDT) Vitamin D, 20.3 (L) 30.0 - 150.0 [facility] 25-hydroxy Comment: ng/mL HOSPITAL This assay reports [...] Blood Performing Organization Address City/State/Zipcode Phone Number [facility] DEPARTMENT OF PATHOLOGY AND [address] [place] [address] [phone] [address] Parathyroid hormone (06/17/2019 3:30 AM CDT) Pathologist Sig nature PTH 192 (H) 15 - 65 pg/mL [facility] Specimen Blood Performing Organization Address City/State/Zipcode Phone Number [facility] DEPARTMENT OF PATHOLOGY AND [address] [place] [address] [phone] [address] Venous blood gas (06/17/2019 3:30 AM CDT)Only the most recent of3 resultswithin the time period is included. Pathologist Sig nature pH, venous 7.36 7.32 - 7.42 [facility] pCO2, venous 48 45 - 51 mmHg [facility] pO2, venous 51 (H) 25 - 40 mmHg [facility] Base excess, venous 1 -2 - 2 meq/L [facility] O2 saturation, 81 (H) 40 - 70 % [facility] Bicarbonate, venous 26.5 21.0 - 28.0 [facility] mmol/L HOSPITAL Specimen Blood Performing Organization Address City/[facility] Phone Number [facility] DEPARTMENT OF PATHOLOGY AND [address] [place] [address] [phone] [address] Ferritin level (06/17/2019 3:30 AM CDT) Pathologist Sig nature Ferritin level 866 (H) 13 - 150 ng/mL [facility] Specimen Plasma specimen Performing Organization Address City/[facility] Phone Number [facility] DEPARTMENT OF PATHOLOGY AND [address] [place] [address] [phone] [address] Vancomycin level, random (06/17/2019 3:30 AM CDT) Pathologist Sig nature Vancomycin, random 15.9 ug/mL [facility] ITAL Specimen Serum Performing Organization Address [facility] Phone Number [facility] DEPARTMENT OF PATHOLOGY AND [address] [place] [address] [phone] [address] [place] Renal (06/16/2019 6:20 PM CDT) Specimen [...] disease. 2.No hydronephrosis. 3.Additional findings as above. [facility]-[id number] Procedure Note Hm Interface, Radiology Results Incoming [...] disease. 2.No hydronephrosis. 3.Additional findings as above. [facility]-[id number] Performing Organization Address City/[facility]/Zipcode Phone Number [facility] [address] [place] [address] B natriuretic peptide (06/16/2019 5:30 PM CDT)Only the most recent of2 results within the time period is included. Pathologist Sig nature BNP 446 (H) 0 - 100 pg/mL [facility] Specimen Narrative Performed At _TROP__ results called to and read back by [facility] DEPARTM ENT OF PATHOLOGY AND GENOMIC SHELLAISE BAJWA/GENEVIEVE AT MEDICINE 06/16/2019 18:50 BY LM1. Performing Organization Address [facility] Phone Number [facility] DEPARTMENT OF PATHOLOGY AND [address] [place] [address] [phone] [address] Urea nitrogen, urine, random (06/16/2019 12:00 PM CDT) Pathologist Sig nature Urea nitrogen, urine, 508 mg/dL [facility] Specimen Urine Performing Organization Address City/[facility]/Zipcode Phone Number [facility] DEPARTMENT OF PATHOLOGY AND [address] [place] [address] [phone] [address] Sodium level, urine, random (06/16/2019 12:00 PM CDT) Pathologist Sig nature Sodium, urine, random 73 mEq/L [facility] Specimen Urine Performing Organization Address City/[facility]/Zipcode Phone Number [facility] DEPARTMENT OF PATHOLOGY AND [address] [place] [address] [phone] [address] Protein, urine, random (06/16/2019 12:00 PM CDT) Pathologist Sig nature Protein, urine random 15 mg/dL [facility] Specimen Urine Performing Organization Address City/[facility]/Zipcode Phone Number [facility] DEPARTMENT OF PATHOLOGY AND [address] [place] [address] [phone] [address] Creatinine level, urine, random (06/16/2019 12:00 PM CDT) Pathologist Sig nature Creatinine, urine, 90 mg/dL [facility] Specimen Urine Performing Organization Address City/[facility] Phone Number [facility] DEPARTMENT OF PATHOLOGY AND [address] [place] [address] [phone] [address] Anti Xa Apixaban (06/16/2019 10:40 AM CDT)Only the most recent of2 resultswithin the time period is included. Anti Xa, Apixaban 72 ng/mL [facility] Comment: HOSPITAL Therapeutic ranges not available, typical levels 2-4 h rs post 2.5 mg dose: 16-108 ng/mL; post 5 mg dose: 103-155 ng/ mL. Apixaban is approved for use without monitoring. Plasma apixaban levels depend on dose and sample timin g. This test has been modified from the auto body customizer's in structions. The performance characteristics were determined by [facility] in a manner consistent with CLIA requirements. This test has not been cleared or a pproved by U.S. Food and Drug Administration. Specimen Blood Performing Organization Address City/[facility]/Zipcode Phone Number [facility] DEPARTMENT OF PATHOLOGY AND [address] [place] [address] [phone] [address] Prothrombin time with INR (06/16/2019 10:40 AM CDT)Only the most recent of3 resultswithin the time period is included. Prothrombin time 25.5 (H) 11.5 - 14.5 [facility] INR 2.4 [place] Comment: MANDAEN [facility] International Normalized Ratio (INR) is a [facility] HOSPITAL monitoring tool for patients who are stable on oral anticoagulant therapy. An INR of 2.0-3.0 is suggested for deep vein thrombosis/pulmonary embolism. Specimen Blood Performing Organization Address City/[facility] Phone Number [facility] DEPARTMENT OF PATHOLOGY AND [address] [place] [phone] Arterial blood gas (06/16/2019 10:40 AM CDT)Only the most recent of2 results within the time period is included. Pathologist Sig [facility] pH, arterial 7.35 7.35 - 7.45 [facility] pCO2, arterial 40 35 - 45 mmHg [facility] pO2, arterial 133 (H) 80 - 90 mmHg [facility] Bicarbonate, 21.3 21.0 - 28.0 [facility] mmol/L [facility] Base excess, -4 (L) -2 - 2 mEq/L [facility] O2 saturation, 99 95 - 100 % [facility] Specimen Blood Performing Organization Address City/[facility] Phone Number [facility] DEPARTMENT OF PATHOLOGY AND [address] [place] [phone] Beta hydroxybutyrate (06/16/2019 1:30 AM CDT) Pathologist Sig [facility] Beta hydroxybutyrate 0.42 (H) 0.02 - 0.27 [facility] mmol/L [facility] Specimen Serum Performing Organization Address City/[facility] Phone Number [facility] DEPARTMENT OF PATHOLOGY AND [address] [place] [phone] IABP PLACEMENT (06/16/2019 1:28 AM CDT) Narrative Performed At Keo Delgado MD 06/16/2019 1: 30 AM IABP placement Date/Time: 06/16/2019 1:28 AM Performed by: Keo Delgado MD Authorized by: Keo Delgado MD Consent: Consent obtained: Verbal Consent given by: Patient Risks discussed: Pneumothorax, hemo rrhage, arrhythmia and local hematoma Alternatives discussed: Alternative treatment [place] protocol: Procedure explained and questions ans wered [...] 12:52 AM CDT) Specimen Narrative Performed At [facility] Echo cardiography Report [address] [place] [address] Pat.Name: NASIR DAS.ID: [id number] .Date: 06/15/2019 Refer.MD: RUDY DANIEL M D Exam Time: 11:47:00 PM Study Type:Ro utine Echo Height: 67in Weight: 189lb BSA: 1.98 m2 Ag e: 1940,78Y Sex: FEMALE BP: 117/71 HR: 75 bpm Sonogr phr: Chelsea Sierra RDCS Pat. Stat.:Inpatient Room: BK8305-L Study Status:Final Echo Event ID:[id number] Order ID: [id number] Reason for Study:SOB, abn CXR, heart renée lure suspected History / Clinical:Coronary Artery Disea se, Diabetes, Hypertension, Valvular Heart Disease; Aortic Stenosis Procedures: Portable, Stat, 2D Echo,[place] rflow Doppler Limited Race: C SUMMARY: Limited [...] mmHg + RAP. MEASUREMENTS: 2D Parasternal Long [place] Ao An 1.4 cm LVPWd 1 cm [...] 2018 1:16 AM CDT Echocardiography Report [address] [place] [address] Pat.Name: NASIR DAS D: [id number] .Date: 06/15/2019 Refer.MD: RUDY DANIEL MD Exam Time: 11:47:00 PM Study Type:Routine Echo Height: 67in Weigh t: 189lb BSA: 1.98 m2 Age: 1 1940,78Y Sex: FEMALE BP: 117/71 HR: 75 bpm Sonog rphr: Chelsea Sierra RDCS Pat. Stat.:Inpatient Room: [address] Study Status:Final Echo Event ID:[id number] Order ID: [id number] Reason for Study:SOB, abn CXR, heart renée lure suspected History / Clinical:Coronary Artery Disea se, Diabetes, Hypertension, Valvular Heart Disease; Aortic Stenosis Procedures: Portable, Stat, 2D Echo,[place] rflow Doppler Limited Race: C SUMMARY: Limited [...] mmHg + RAP. MEASUREMENTS: 2D Parasternal Long [place] Ao An 1.4 cm LVPW d 1 [...] Organization Address City/State/Zipcode Phone Number [facility] [address] [place] [address] Arterial Line Insertion (06/15/2019 11:39 PM CDT) [...] after 5 days of incubation. HO CIERRA MANDAEN isolate Comment: HOSPITAL Specimen Information Specimen Source: Blood Specimen Site: Radial, right Specimen Blood - Radial, right Performing Organization Address City/State/Zipcode Phone Number [facility] DEPARTMENT OF PATHOLOGY AND [address] [place] [address] [place] [phone] Hemoglobin A1c (06/15/2019 11:25 PM CDT)Only the most recent of2 resultswithin the time period is included. Hemoglobin A1C 10.3 (H) 4.0 - 5.6 % [facility] Comment: HOSPITAL HbA1c cutoffs for diagnosing diabetes: [...] Blood Performing Organization Address City/State/Zipcode Phone Number [facility] DEPARTMENT OF PATHOLOGY AND [address] [place] [address] [place] [phone] Lipid panel (06/15/2019 11:25 PM CDT)Only the most recent of2 resultswithin the time period is included. Cholesterol 80 <200 mg/dL [facility] Triglycerides 107 <150 mg/dL [facility] HDL cholesterol 26 (L) >40 mg/dL [facility] LDL cholesterol 32Comment: Result <100 mg/dL [place] obtained by direct MANDAEN LDL measurement [facility] Lipid panel [facility] interpretation Comment: MANDAEN Total Cholesterol (mg/dL) HOSPIT AL <200 Desirable [...] mg/dL) Specimen Plasma specimen Performing Organization Address City/[facility] Phone Number [facility] DEPARTMENT OF PATHOLOGY AND [address] [place] [address] [phone] [address] Ionized calcium, arterial (06/15/2019 9:30 PM CDT) Pathologist Sig nature Ionized calcium, 1.17 1.11 - 1.32 [facility] arterial mmol/L HOSPITAL Specimen Blood Performing Organization Address [facility] Phone Number [facility] DEPARTMENT OF PATHOLOGY AND [address] [place] [address] [phone] [address] XR Chest 2 Vw (06/15/2019 8:05 PM [...] structures are demineralized. HMRM-PRARSA Performing Organization Address [facility] Phone Number [facility] [address] [place] [phone] C difficile toxin (06/15/2019 2:00 PM CDT) Clostridium No Clostridium difficle toxin present ERAN MARTIN MANDAEN difficile toxin Comment: HOSPITAL Specimen Information Specimen Source: Stool Specimen Site: Nonpreserved Specimen Stool - Nonpreserved Performing Organization Address [facility] Phone Number [facility] DEPARTMENT OF PATHOLOGY AND [address] [place] [phone] [place] [phone] Thyroid stimulating hormone (06/15/2019 5:40 AM CDT) Pathologist Sig nature TSH 3.06 0.27 - 4.20 uIU/mL [facility] ITAL Specimen Plasma specimen Performing Organization Address [facility] Phone Number [facility] DEPARTMENT OF PATHOLOGY AND [address] [place] [phone] [place] [phone] T4, free (06/15/2019 5:40 AM CDT) Pathologist Sig [facility] T4, free 1.4 0.9 - 1.7 ng/dL [facility] L Specimen Plasma specimen Performing Organization Address [facility] Phone Number [facility] DEPARTMENT OF PATHOLOGY AND [address] [place] [phone] [place] [phone] Gram stain (06/15/2019 4:58 AM CDT) Gram stain result Occasional WBC's [facility] Few Gram positive cocci in pairs HOSPITAL Few Gram negative rods Comment: Specimen Information Specimen Source: Urine Specimen Site: Clean catch Specimen Urine Performing Organization Address [facility] Phone Number [facility] DEPARTMENT OF PATHOLOGY AND [address] [place] [phone] [place] [phone] Urine culture (06/15/2019 4:58 AM CDT) Pathologist [facility] Urine culture Mixed chinyere 10-5 col/cc [facility] T isolate Comment: HOSPITAL Specimen Information Specimen Source: Urine Specimen Site: Clean catch Specimen Urine Performing Organization Address [facility] Phone Number [facility] DEPARTMENT OF PATHOLOGY AND [address] [place] [phone] [place] [phone] Urinalysis screen and microscopy, with reflex to culture (06/15/2019 3:50 AM CDT) Specimen site Clean catch [facility] Color, UA Dark Yellow [facility] Appearance, UA Hazy [facility] Specific gravity, UA 1.016 1.001 - 1.035 [facility] pH, UA 5.0 5.0 - 8.5 [facility] Protein, UA 1+ (A) Negative [facility] Glucose, UA Negative Negative [facility] Ketones, UA Negative Negative [facility] Bilirubin, UA Negative Negative [facility] Blood, UA Moderate (A) Negative [facility] Nitrite, UA Negative Negative [facility] Urobilinogen, UA <2.0 <2.0 [facility] Leukocyte esterase, Moderate (A) Negative [facility] Epithelial cells, UA 1 /HPF [facility] WBC, UA 26 (H) 0 - 4 /HPF [facility] RBC, UA 2 0 - 5 /HPF [facility] Bacteria, UA Few None seen [facility] WBC clumps, UA Few (A) [facility] Yeast, UA None seen [facility] Yeast with None seen [facility] pseudohyphae, HOSPITAL Hyaline casts, UA 9 /LPF [facility] Specimen Urine Performing Organization Address City/State/Zipcode Phone Number [facility] DEPARTMENT OF PATHOLOGY AND [address] [place], [place] [address] [facility]ICINE [address] [address] after 05/20/2019 Insurance Payer Benefit Plan / Subscriber ID Effective Dates Phone Addre ss Type Group [employer] MEDICARE HU[employer]NA MEDICARE xxxxxxxxx 2017-Present PPO PPO/PFFS/ERS [employer] Advance Directives For more information, please contact: [phone] Type Date Recorded Patient Director Of Cloud Services Explanati on Advance Directives, Living Will 06/14/2019 6:11 PM and Medical 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
--- OUTSIDE RECORDS SUMMARY | 2020-05-20 17:34 | XMS REPORT | Continuity of Care Document ---
:1940 Author Organization [facility] t Address [address] [place] [address] Care Team Providers Name Role Phone Asked, Pcp Primary Care Physician Unavailable Louise Gamble Attending Clinician Balbir MARQUES ORadha Attending Clinician Payers Payer Name Policy Type Policy Number Effective Date Expiration Source Date HUMANA xxxxxxxxx 2017 [place] MEDICAREHUMANA 00:00:00 [facility] MEDICARE PPO/PFFS/ERS [id number] Problems Condition Condition Condition Status Onset Resolution Last Treating Co mments Source Name Details Category Date Date Treatment Clinician Date Cardiogeni Cardiogeni Disease Active H dorie c shock c shock 06-21 Methodi 00:00: st 00 Atrial Atrial Disease Active [place] fibrillati fibrillati 06-15 Me thodi on on 00:00: st 00 Essential Essential Disease Active [place] hypertensi hypertensi 06-15 Me [facility] on on 00:00: st 00 Type 2 Type 2 Disease Active [place] diabetes diabetes 06-15 Method i mellitus mellitus 00:00: st 00 Allergies, Adverse Reactions, Alerts Allergy Allergy Status Severity Reaction(s) Onset Inactive Treating Comm ents Source Name Type Date Date Clinician Codeine Propensi Active Hallucinatio H gwendolynston ty to ns Methodi adverse st reaction s to drug Morphine Propensi Active Hallucinatio Pt had it [place] ty to ns when son Tello salcido was born. st reaction s to drug Penicill Propensi Active Rash Long time [place] in [place] ty to ago, pt Methodi adverse can't st reaction remember. s to drug Family History Family Member Diagnosis Comments Start Date Stop Date Source Natural father Heart disease Tommie Goldberg Natural mother Cancer [place] [facility] Social History Social Habit Start Date Stop Date Quantity Comments Source History [facility] Meth odist Alcohol Std Drinks History [facility] Alcohol Binge Sex Assigned At [place] M ethodist Alcohol intake 2019-06-15 2019-06-15 Lifetime [place] [facility] 00:00:00 00:00:00 non-drinker (finding) History SDWV 2019-06-15 2019-06-15 1 [place] Meth od[facility] Alcohol Frequency 00:00:00 00:00:00 Smoking Status Start Date Stop Date Source Never smoker Tommie Aragonis t Medications Ordered Filled Start Stop Current Ordering Indication Dosage Frequency Signature Comments Components Source Medication Medication Date Date Medication? Clinician (SIG) Name Name calcitriol 2018-09- No .25ug QD Take 1 [place] (ROCALTROL) 07-25 capsule Meth farhad 0.25 MCG 00:00: 23:59 (0.[address] capsule 00 :00 total) by mouth daily for 30 days. calcium 2018-09- No 1000mg QD Chew 2 [place] carbonate 07-25 tablets Method i (TUMS) 200 00:00: 23:59 (1,000 mg s t mg calcium 00 :00 total) (500 mg) daily for chewable 30 days. tablet pantoprazol 2018-09- No 40mg QD Take 1 [place] e 07-25 tablet (40 [facility] (PROTONIX) 00:00: 23:59 mg total) s t 40 MG EC 00 :00 by mouth tablet daily for 30 days. SITagliptin 2018-09 No 50mg QD Take 50 mg [place] (JANUVIA) 0-03 by mouth Metho di 50 MG 14:34: 00:[address] tablet 10 :00 furosemide 2018-09- No 40mg Q.5D Take 40 mg [place] (LASIX) 40 0- by mouth 2 Me thodi mg tablet 14:34: 00:00 (two) st 10 :00 times a day. spironolact 2018-09- No 50mg QD Take 50 mg [place] one 0-03 10-03 by mouth Methodi (ALDACTONE) 14:34: 00:[address] 50 MG 10 :00 tablet INSULIN 2018-09- No Inject [place] SUBCUTANEOU 0-03 10-03 under the Nm thodi S PUMP, 14:34: 00:[address] HUMULIN R, 10 :00 continuous 100 UNIT/ML ly. INSULIN PUMP INFUSION (HumuLIN,No voLIN) insulin 2018-09 Yes 55U QD Inject 55 [place] GLARGINE 0-03 Units Methodi (LANTUS) 14:34: under the st 100 unit/mL 07 skin injection daily. (vial) FLUoxetine 2018-09 Yes 20mg QD Take 20 mg [place] (PROzac) 20 0-03 by mouth Meth farhad MG capsule 14:34: daily. st 07 clopidogrel 2018-09 Yes 75mg QD Take 75 mg [place] (PLAVIX) 75 0-03 by mouth Meth farhad mg tablet 14:34: daily. st 07 apixaban 2018-09 Yes 2.5mg Q.5D Take 2.5 [place] (ELIQUIS) 0-03 mg by Methodi 2.5 mg 14:34: mouth 2 st tablet 07 (two) times a day. primidone 2018-09 Yes 50mg QD Take 50 mg [place] (MYSOLINE) 0-03 by mouth Metho di 50 MG 14:34: nightly. st tablet 07 atorvastati 2018-09 Yes 80mg QD Take 80 mg [place] n (LIPITOR) 0-03 by mouth Meth farhad 80 MG 14:34: nightly. st tablet 07 fenofibrate 2018-09 Yes 134mg QD Take 134 [place] (LOFIBRA) 0-03 mg by Methodi 54 MG 14:34: mouth st tablet 07 daily. carvedilol 2018-09 2019- No 6.25mg Q.5D Take 1 [place] (COREG) 0-03 11-02 tablet Methodi 6.25 MG 00:00: 23:59 (6.[address] tablet 00 :00 total) by mouth 2 (two) times a day for 30 days. hydrALAZINE 2018-09 2019- No 100mg [id number] Take 1 [place] (APRESOLINE 0-03 11-02 [id number] tablet Methodi ) 100 MG 00:00: 23:59 3D ([address] tablet 00 :00 total) by mouth every 8 (eight) hours for 30 days. insulin 2018-09- No 5U [id number] Inject 5 [place] lispro 007-24 [id number] Units Metho di (HumaLOG) 00:00: 23:[address] 100 unit/mL 00 :00 skin 3 injection (three) times a day with meals for 30 days. isosorbide 2018-09- No 20mg Q.[id number] Take 1 [place] dinitrate 007-24 [id number] tablet (20 [facility]i (ISORDIL) 00:00: 23:59 3D mg total) st 20 MG 00 :00 by mouth 3 tablet (three) times a day for 30 days. loperamide 2018-09- No 2mg Q.25D Take 1 [place] (IMODIUM) 2 07-24 capsule (2 M ethodi mg capsule 00:00: 23:59 mg total) s t 00 :00 by mouth 4 (four) times a day as needed for diarrhea for up to 30 days. sodium 2018-09- No 2{spray 2 sprays [place] chloride 07-24 } into each Metho di (OCEAN) 00:00: 23:[address] 0.65 % 00 :00 needed for nasal spray rhinitis for up to 30 days. torsemide 2018-09- No 30mg Q.5D Take 3 [place] (DEMADEX) 07-24 tablets Method i 10 MG 00:00: 23:59 ([address] tablet 00 :00 total) by mouth 2 (two) times a day for 30 days. Immunizations Ordered Immunization Filled Immunization Date Status Commen ts Source Name Name FLUCANUPAMX CANDI PF 2019-06-24 Completed [place] 00:00:00 [facility]ism Vital Signs Vital Name Observation Time Observation Value Comments Source Systolic blood 2019-06-24 11:40:54 124 mm[Hg] [place] n [facility]ism pressure Diastolic blood 2019-06-24 11:40:54 58 mm[Hg] [place] [facility] pressure Heart rate 2019-06-24 11:40:54 77 /min Tommie Goldberg Body temperature 2019-06-24 11:40:54 36.5 Viktoriya Viola lo [facility]ism Respiratory rate 2019-06-24 11:40:54 16 /min [place] [facility] Oxygen saturation in 2019-06-24 11:40:54 97 /min Tommie Goldberg Arterial blood by Pulse oximetry Body weight 2019-06-24 04:55:02 83.416 kg Tommie Goldberg BMI 2019-06-24 04:55:02 27.96 kg/m2 Tommie Goldberg Body height 2019-06-18 19:00:00 172.7 cm Tommie Goldberg Procedures Procedure Date / Time Performing Clinician Source Performed SARS-COV2/RT-PCR ([facility] 2020-03-29 21:15:00 [facility] 2019-06-24 11:42:00 Spenser Mcgregor POC GLUCOSE 2019-06-24 07:44:00 Spenser Mcgregor HC COMPLETE BLD COUNT 2019-06-24 05:57:00 Selina Orosco Yarsanism W/AUTO DIFF BASIC METABOLIC PANEL 2019-06-24 05:57:00 Selina Orosco Yarsanism MAGNESIUM LEVEL 2019-06-24 05:57:00 Johan Mcknight Meth odist PHOSPHORUS LEVEL 2019-06-24 05:57:00 Johan Mcknight Met hodist ESTIMATED GFR 2019-06-24 05:57:00 Cameron Thorne Me thodist POC GLUCOSE 2019-06-23 20:41:00 Spenser Mcgregor POC GLUCOSE 2019-06-23 16:17:00 Spenser Mcgregor XR CHEST 1 VW PORTABLE 2019-06-23 11:48:32 Keo Leung on Yarsanism POC GLUCOSE 2019-06-23 11:15:00 Spenser Mcgregor POC GLUCOSE 2019-06-23 07:22:00 Spenser Mcgregor HC COMPLETE BLD COUNT 2019-06-23 05:44:00 Selina Orosco Yarsanism W/AUTO DIFF BASIC METABOLIC PANEL 2019-06-23 05:44:00 Selina Orosco Yarsanism MAGNESIUM LEVEL 2019-06-23 05:44:00 Johan Mcknight Meth odist PHOSPHORUS LEVEL 2019-06-23 05:44:00 Johan Mcknight Reilly Met hodist ESTIMATED GFR 2019-06-23 05:44:00 Cameron Thorne Nm thodist POC GLUCOSE 2019-06-22 20:45:00 Spenser Mcgregor Yarsanism POC GLUCOSE 2019-06-22 17:17:00 Spenser Mcgregor Yarsanism POC GLUCOSE 2019-06-22 11:03:00 Spenser Mcgregor Yarsanism POC GLUCOSE 2019-06-22 07:26:00 Spenser Mcgregor Yarsanism HC COMPLETE BLD COUNT 2019-06-22 05:30:00 Selina Oroscoto n Yarsanism W/AUTO DIFF PARTIAL THROMBOPLASTIN 2019-06-22 05:30:00 Keo Leung on Yarsanism TIME (PTT) IONIZED CALCIUM 2019-06-22 04:00:00 Selina Orosco Meth odist DIGOXIN LEVEL 2019-06-22 04:00:00 Mera Hagen ethodist BASIC METABOLIC PANEL 2019-06-22 04:00:00 Selina Orosco Yarsanism ESTIMATED GFR 2019-06-22 04:00:00 Spenser Mcgregor Yarsanism POC GLUCOSE 2019-06-21 21:03:00 Spenser Mcgregor Yarsanism POC GLUCOSE 2019-06-21 17:44:00 Spneser Mcgregor Yarsanism POC GLUCOSE 2019-06-21 16:29:00 Spenser Mcgregor Yarsanism POC GLUCOSE 2019-06-21 10:41:00 Spenser Mcgregor Yarsanism POC GLUCOSE 2019-06-21 07:15:00 Spenser Mcgregor Yarsanism LDH 2019-06-21 04:00:00 Selina Orosco Meth odist IONIZED CALCIUM 2019-06-21 04:00:00 Selina Orosco Meth odist HC COMPLETE BLD COUNT 2019-06-21 04:00:00 Selina Oroscoto n Yarsanism W/AUTO DIFF PARTIAL THROMBOPLASTIN 2019-06-21 04:00:00 Keo Leung on Yarsanism TIME (PTT) DIGOXIN LEVEL 2019-06-21 04:00:00 Mera Hagen ethodist BASIC METABOLIC PANEL 2019-06-21 04:00:00 Mera Hagen Yarsanism ESTIMATED GFR 2019-06-21 04:00:00 Spenser Mcgregor MAGNESIUM LEVEL 2019-06-21 03:37:00 Spenser Mcgregor POC GLUCOSE 2019-06-20 20:57:00 Spenser Mcgregor POC GLUCOSE 2019-06-20 16:53:00 Spenser Mcgregor POC GLUCOSE 2019-06-20 11:01:00 Spenser Mcgregor DIGOXIN LEVEL 2019-06-20 09:08:00 Elena Malik hodist POC GLUCOSE 2019-06-20 07:51:00 Spenser Mcgregor LDH 2019-06-20 04:00:00 Selina Orosco Meth odist PARTIAL THROMBOPLASTIN 2019-06-20 04:00:00 Elena Malik Yarsanism TIME (PTT) BASIC METABOLIC PANEL 2019-06-20 04:00:00 Selina Orosco Yarsanism IONIZED CALCIUM 2019-06-20 04:00:00 Selina Orosco Meth odist HC COMPLETE BLD COUNT 2019-06-20 04:00:00 Selina Orosco n Yarsanism W/AUTO DIFF ESTIMATED GFR 2019-06-20 04:00:00 Spenser Mcgregor POC GLUCOSE 2019-06-19 21:03:00 Spenser Mcgregor POC GLUCOSE 2019-06-19 17:12:00 Spenser Mcgregor Yarsanism POC GLUCOSE 2019-06-19 12:50:00 Spenser Mcgregor DIGOXIN LEVEL 2019-06-19 07:54:00 Selina Orosco Meth odist PARTIAL THROMBOPLASTIN 2019-06-19 07:41:00 Keo Leung on Yarsanism TIME (PTT) POC GLUCOSE 2019-06-19 07:16:00 Spenser Mcgregor ECG 12-LEAD 2019-06-19 06:41:14 Abby Strauss COMPREHENSIVE METABOLIC 2019-06-19 04:00:00 Phoebe Aleida oshea Yarsanism PANEL TROPONIN 2019-06-19 04:00:00 Aleida Sandhu ethodist MAGNESIUM LEVEL 2019-06-19 04:00:00 Aleida Sandhu ethodist PHOSPHORUS LEVEL 2019-06-19 04:00:00 DagobertoBetito tapiaprasanna Reilly Yarsanism LACTIC ACID LEVEL 2019-06-19 04:00:00 DagobertoBetito tapiaprasanna Reilly Yarsanism CBC WITH PLATELET AND 2019-06-19 04:00:00 Selina Orosco n Yarsanism DIFFERENTIAL LDH 2019-06-19 04:00:00 Selina Orosco Meth odist ESTIMATED GFR 2019-06-19 04:00:00 Spenser Mcgregor MANUAL DIFFERENTIAL 2019-06-19 04:00:00 Spenser Mcgregor Yarsanism PARTIAL THROMBOPLASTIN 2019-06-19 01:30:00 Elena Malik Yarsanism TIME (PTT) HEMOGLOBIN & HEMATOCRIT 2019-06-19 01:30:00 Selina Orosco Yarsanism POC GLUCOSE 2019-06-18 21:03:00 Spenser Mcgregor HEMOGLOBIN & HEMATOCRIT 2019-06-18 20:00:00 Selina Orosco Yarsanism POC GLUCOSE 2019-06-18 17:36:00 Spenser Mcgregor ACTIVATED CLOTTING TIME 2019-06-18 14:41:00 Spenser Mcgregor O2 SATURATION, VENOUS 2019-06-18 11:48:00 Elena Malik on Yarsanism POC GLUCOSE 2019-06-18 10:45:00 Spenser Mcgregor XR CHEST 1 VW PORTABLE 2019-06-18 09:21:59 Selina Orosco on Yarsanism PARTIAL THROMBOPLASTIN 2019-06-18 08:34:00 Keo Leung on Yarsanism TIME (PTT) POC GLUCOSE 2019-06-18 07:39:00 Spenser Mcgregor COMPREHENSIVE METABOLIC 2019-06-18 02:30:00 Phoebe Aleida oshea Yarsanism PANEL TROPONIN 2019-06-18 02:30:00 Dagobertoiff, Nooreahmed Reilly M ethodist MAGNESIUM LEVEL 2019-06-18 02:30:00 LatiffAleida M ethodist PHOSPHORUS LEVEL 2019-06-18 02:30:00 LatiffAleida Yarsanism LACTIC ACID LEVEL 2019-06-18 02:30:00 LatiffAleida Yarsanism DIGOXIN LEVEL 2019-06-18 02:30:00 Jared Malikmackenzietarun Reilly Met hodist HC COMPLETE BLD COUNT 2019-06-18 02:30:00 Selina Orosco n Yarsanism W/AUTO DIFF O2 SATURATION, VENOUS 2019-06-18 02:30:00 Herb Daniel Yarsanism Cirilo ESTIMATED GFR 2019-06-18 02:30:00 Spenser Mcgregor TTE COMPLETE, WO CONTRAST, 2019-06-18 01:45:00 Keo Leung Yarsanism W DOPPLER ([id number]) PARTIAL THROMBOPLASTIN 2019-06-18 00:50:00 Elena Malik Yarsanism TIME (PTT) ECG 12-LEAD 2019-06-17 23:16:22 Keo Leung Meth odist ECG 12-LEAD 2019-06-17 23:15:29 Spenser Mcgregorist XR CHEST 1 VW PORTABLE 2019-06-17 22:07:15 Keo Leung on Yarsanism POC GLUCOSE 2019-06-17 21:06:00 Spenser Mcgregor Yarsanism POC GLUCOSE 2019-06-17 17:09:00 Spenser Mcgregor Yarsanism PARTIAL THROMBOPLASTIN 2019-06-17 17:08:00 Selina Orosco on Yarsanism TIME (PTT) POC GLUCOSE 2019-06-17 10:48:00 Spenser Mcgregor Yarsanism PARTIAL THROMBOPLASTIN 2019-06-17 09:41:00 Herb Daniel Yarsanism TIME (PTT) Cirilo XR CHEST 1 VW PORTABLE 2019-06-17 09:38:20 Elena Malik Yarsanism XR ABDOMEN 1 VW PORTABLE 2019-06-17 09:38:05 Prerna Mae Yarsanism BASIC METABOLIC PANEL 2019-06-17 08:49:00 Prerna Mae on Yarsanism MAGNESIUM LEVEL 2019-06-17 08:49:00 Prerna Mae Met hodist ESTIMATED GFR 2019-06-17 08:49:00 Spenser Mcgregor POC GLUCOSE 2019-06-17 06:56:00 Spenser Mcgregor VANCOMYCIN LEVEL, RANDOM 2019-06-17 03:30:00 Aleida Sandhu Yarsanism VITAMIN D 25 HYDROXY LEVEL 2019-06-17 03:30:00 Johan Mcknight Yarsanism HC COMPLETE BLD COUNT 2019-06-17 03:30:00 Selina Orosco n Yarsanism W/AUTO DIFF VENOUS BLOOD GAS 2019-06-17 03:30:00 Selina Orosco Met hodist DIGOXIN LEVEL 2019-06-17 03:30:00 Elena Malik Met hodist TOTAL IRON BINDING 2019-06-17 03:30:00 Johan Mcknight ethodist CAPACITY FERRITIN LEVEL 2019-06-17 03:30:00 Johan Mcknight Meth odist PARATHYROID HORMONE 2019-06-17 03:30:00 Johan Mcknight COMPREHENSIVE METABOLIC 2019-06-17 03:30:00 Aleida Sandhu Yarsanism PANEL TROPONIN 2019-06-17 03:30:00 Aleida Sandhu M ethodist MAGNESIUM LEVEL 2019-06-17 03:30:00 Aleida Sandhu M ethodist PHOSPHORUS LEVEL 2019-06-17 03:30:00 Aleida Sandhu Yarsanism LACTIC ACID LEVEL 2019-06-17 03:30:00 Aleida Sandhu Yarsanism ESTIMATED GFR 2019-06-17 03:30:00 Aleida Sandhu M ethodist PARTIAL THROMBOPLASTIN 2019-06-17 03:30:00 Herb Daniel Yarsanism TIME (PTT) [place] PARTIAL THROMBOPLASTIN 2019-06-16 21:50:00 Elena Malik Yarsanism TIME (PTT) POC GLUCOSE 2019-06-16 21:09:00 Spenser Mcgregor US RENAL 2019-06-16 18:20:00 Selina Orosco Meth odist TROPONIN 2019-06-16 18:00:00 Selina Orosco Meth odist COMPREHENSIVE METABOLIC 2019-06-16 18:00:00 Selina Orosco Viola lo Yarsanism PANEL ESTIMATED GFR 2019-06-16 18:00:00 Spenser Mcgregor HC COMPLETE BLD COUNT 2019-06-16 17:30:00 Selina Orosco Lalitha miller Yarsanism W/AUTO DIFF VENOUS BLOOD GAS 2019-06-16 17:30:00 Elena Malik Nm thodist B NATRIURETIC PEPTIDE 2019-06-16 17:30:00 Spenser Mcgregor POC GLUCOSE 2019-06-16 16:54:00 Spenser Mcgregor TROPONIN 2019-06-16 16:44:00 OroscoSelina caballero Tommie garcia CREATININE LEVEL, URINE, 2019-06-16 12:00:00 Johan Mcknight RANDOM PROTEIN, URINE, RANDOM 2019-06-16 12:00:00 Johan Mcknight UREA NITROGEN, URINE, 2019-06-16 12:00:00 Johan Mcknight RANDOM SODIUM LEVEL, URINE, 2019-06-16 12:00:00 Johan Mcknight RANDOM POC GLUCOSE 2019-06-16 11:05:00 Spenser Mcgregor PARTIAL THROMBOPLASTIN 2019-06-16 10:40:00 Herb Daniel TIME (PTT) [place] PROTHROMBIN TIME WITH INR 2019-06-16 10:40:00 Herb Daniel ANTI XA APIXABAN 2019-06-16 10:40:00 Herb Daniel ARTERIAL BLOOD GAS 2019-06-16 10:40:00 Elena Malik BASIC METABOLIC PANEL 2019-06-16 10:40:00 Mera Hagen MAGNESIUM LEVEL 2019-06-16 10:40:00 Mera Hagen M ethodist PHOSPHORUS LEVEL 2019-06-16 10:40:00 Mera Hagen TROPONIN 2019-06-16 10:40:00 Mera Hagen ethodist LACTIC ACID LEVEL 2019-06-16 10:40:00 Mera Hagen ESTIMATED GFR 2019-06-16 10:40:00 Spenser Mcgregor ECG 12-LEAD 2019-06-16 10:31:24 Spenser Mcgregor POC GLUCOSE 2019-06-16 09:47:00 Spenser Mcgregor POC GLUCOSE 2019-06-16 07:17:00 Spenser Mcgregor COMPREHENSIVE METABOLIC 2019-06-16 05:00:00 Herb Daniel Yarsanism PANEL Cirilo MAGNESIUM LEVEL 2019-06-16 05:00:00 Herb Daniel ethodist Cirilo TROPONIN 2019-06-16 05:00:00 Herb Daniel ethodist Cirilo PHOSPHORUS LEVEL 2019-06-16 05:00:00 Herb Daniel Cirilo LACTIC ACID LEVEL 2019-06-16 05:00:00 Herb Daniel O2 SATURATION, VENOUS 2019-06-16 05:00:00 Herb Daniel ESTIMATED GFR 2019-06-16 05:00:00 Herb Daniel ethodist Cirilo XR CHEST 1 VW PORTABLE 2019-06-16 01:49:48 Herb Daniel BETA HYDROXYBUTYRATE 2019-06-16 01:30:00 Aleida Sandhu Yarsanism COMPREHENSIVE METABOLIC 2019-06-16 01:30:00 Aleida Sandhu Yarsanism PANEL PHOSPHORUS LEVEL 2019-06-16 01:30:00 Aleida Sandhu MAGNESIUM LEVEL 2019-06-16 01:30:00 Aleida Sandhu ethodist TROPONIN 2019-06-16 01:30:00 Aleida Sandhu ethodist LACTIC ACID LEVEL 2019-06-16 01:30:00 Aleida Sandhu ESTIMATED GFR 2019-06-16 01:30:00 Aleida Sandhu ethodist IABP PLACEMENT 2019-06-16 01:28:02 Keo Leung Tommie garcia XR CHEST 1 VW PORTABLE 2019-06-16 01:01:15 Phoebe Aleida Goldberg HC COMPLETE BLD COUNT 2019-06-16 01:00:00 Phoebe Aleida Goldberg W/AUTO DIFF HC ECHO 2-D F/UP LIMITED 2019-06-16 00:52:16 Aleida Sandhu OH INSERT 2019-06-15 23:39:58 Aleida Sandhu ethodist CATH,ART,PERCUT,SHORTTERM OH INSERT NON-TUNNEL CV 2019-06-15 23:37:49 Phoebe Aleida Goldberg CATH POC GLUCOSE 2019-06-15 23:35:00 Spenser Mcgregor BLOOD CULTURE, AEROBIC & 2019-06-15 23:30:00 Herb Daniel ANAEROBIC [place] VENOUS BLOOD GAS 2019-06-15 23:30:00 Herb Daniel PARTIAL THROMBOPLASTIN 2019-06-15 23:25:00 Herb Daniel TIME (PTT) [place] PROTHROMBIN TIME WITH INR 2019-06-15 23:25:00 Herb Daniel ANTI XA APIXABAN 2019-06-15 23:25:00 Herb Daniel HEMOGLOBIN A1C 2019-06-15 23:25:00 Herb Daniel LIPID PANEL 2019-06-15 23:25:00 Herb Daniel BLOOD CULTURE, AEROBIC & 2019-06-15 23:15:00 Herb Daniel ANAEROBIC Cirilo ECG 12-LEAD 2019-06-15 22:22:32 Sulema Barragan ARTERIAL BLOOD GAS 2019-06-15 21:30:00 Sulema Barraganst B NATRIURETIC PEPTIDE 2019-06-15 21:30:00 Sulema Barragan HC COMPLETE BLD COUNT 2019-06-15 21:30:00 Yung, Sulema [place] [facility] W/AUTO DIFF COMPREHENSIVE METABOLIC 2019-06-15 21:30:00 Yung Sulema lo Yarsanism PANEL LACTIC ACID LEVEL 2019-06-15 21:30:00 Sulema Barragan Reilly Me thodist MAGNESIUM LEVEL 2019-06-15 21:30:00 Sravani Barraganeba Tommie Meth odist TROPONIN 2019-06-15 21:30:00 Sravani Barraganmikel Reilly Meth odist ESTIMATED GFR 2019-06-15 21:30:00 Sravani Barraganmikel Robison odjohanna IONIZED CALCIUM, ARTERIAL 2019-06-15 21:30:00 Sravani Barraganmikel Goldberg PROTHROMBIN TIME WITH INR 2019-06-15 21:30:00 Yung Sulema Goldberg PARTIAL THROMBOPLASTIN 2019-06-15 21:30:00 Yung Sulema Valencia on Yarsanism TIME (PTT) ECG 12-LEAD 2019-06-15 21:24:19 Spenser Mcgregor POC GLUCOSE 2019-06-15 21:19:00 Spenser Mcgregor ECG 12-LEAD 2019-06-15 20:51:33 Keo Leung XR CHEST 2 VW 2019-06-15 20:05:35 Keo Leung Meth odist POC GLUCOSE 2019-06-15 17:11:00 Spenser Mcgregor CLOSTRIDIUM DIFFICILE 2019-06-15 14:00:00 Spenser Mcgregor TOXIN POC GLUCOSE 2019-06-15 11:53:00 Spenser Mcgregor POC GLUCOSE 2019-06-15 08:48:00 Spenser Mcgregor HC COMPLETE BLD COUNT 2019-06-15 05:40:00 Spenser Mcgregor W/AUTO DIFF BASIC METABOLIC PANEL 2019-06-15 05:40:00 Spenser Mcgregor HEMOGLOBIN A1C 2019-06-15 05:40:00 Spenser Mcgregor LIPID PANEL 2019-06-15 05:40:00 Spenser Mcgregor THYROID STIMULATING 2019-06-15 05:40:00 Spenser Mcgregor HORMONE T4, FREE 2019-06-15 05:40:00 Spenser Mcgregor ESTIMATED GFR 2019-06-15 05:40:00 Spenser Mcgregor URINE CULTURE 2019-06-15 04:58:00 Spenser Mcgregor GRAM STAIN 2019-06-15 04:58:00 Spenser Mcgregor URINALYSIS SCREEN AND 2019-06-15 03:50:00 Spenser Mcgregor MICROSCOPY, WITH REFLEX TO CULTURE ECG 12-LEAD 2019-06-15 01:42:30 Spenser Mcgregor Plan of Care Planned Activity Planned Date Details Comments Source Future Scheduled 2020-06-22 INFLUENZA VACCINE [place] [facility] 00:00:00 [code = INFLUENZA VACCINE] Future Scheduled 2003 65+ PNEUMOCOCCAL [facility] Test 00:00:00 VACCINE (1 of 2 - PCV13) [code = 65+ PNEUMOCOCCAL VACCINE (1 of 2 - PCV13)] Future Scheduled 1988 SHINGLES VACCINES (#1) [place] [facility] 00:00:00 [code = SHINGLES VACCINES (#1)] Future Scheduled 1948 DIABETIC FOOT EXAM [place] [facility] 00:00:00 [code = DIABETIC FOOT EXAM] Future Scheduled 1948 URINE MICROALBUMIN [place] [facility] 00:00:00 [code = URINE MICROALBUMIN] Future Scheduled 1938 DIABETIC RETINAL EYE [place] [facility] 00:00:00 EXAM [code = DIABETIC RETINAL EYE EXAM] Encounters Start End Encounter Admission Attending Care Care Encounter Source Date/Time Date/Time Type Type Clinicians Facility Department ID 2020-04-13 2020-04-13 Office GEORGE Brantley [id number] 08:49:39 09:04:39 Visit [facility] [id number] Surgical [id number] Specialti [id number] [address] Results Test Description Test Time Test Comments Results Result Comments Source SARS-CoV2/RT-PCR ([facility]) 2020-03-30 13:09:00 Test Item Value Reference Range Interpretation Comme nts SARS-COV2/RT-PCR (test code = Negative Not Detected, Negative 40734-3) SARS-COV-[address] [facility] (test code = 13323-6) BERNADETTE (test code = BERNADETTE) Negative result for this test determines that SARS-CoV-2 RNA was not present in the specimen above the Limit of Detection (LOD). However, Negative results do not preclude SARS-CoV-2 infection and should not be used as the sole basis for treatment or patient management decisions. Negative results must be combined with clinical observations, patient history, and epidemiological information. A false negative result may occur if a specimen is improperly collected, transported or handled. A false negative result should be considered if patient's recent exposures or clinical presentation indicate that COVID-19 (SARS-CoV-2) is likely and diagnostic tests for other causes of illness are negative. Re-testing should be considered in cases of suspected [...] Food and Drug Administration (FDA) cleared or approved. This is a modified version of an approved [...] of the Act. Fact Sheet for Healthcare Providers:https://www.[employer]. com/sites/default/files/produ ct/documents/Fact_Sheet_HC_Pr rtiojne_Cfdc_CSFC-ZxM-8.pdf Fact Sheet for Healthcare Patients:https://www.[employer] om/sites/default/files/produc t/documents/Fact_Sheet_Sameer cm_Tzuv_WUQF-LgI-1.pdf Performing Laboratory:[facility] [place] [address] [facility]2020-03-30 13:09:00 Test Item Value Reference Range Interpretation Comments SARS-COV2/RT-PCR (test code = Negative Not Detected, Negative [id number]) SARS-COV-[address] [facility] (test code = 5611825) Negative result for this test determines that SARS-CoV-2 RNA was not present in the specimen above the Limit of Detection (LOD). However, Negative results do not preclude SARS-CoV-2 infection and should not be used as the sole basis for treatment or patient management decisions. Negative results mustbe combined with clinical observations, patient history, and epidemiological information. A false negative result may occur if a specimen is improperly collected, transported or handled. A false negative result should be considered if patient's recent exposures or clinical presentation indicate that COVID-19 (SARS-CoV-2) is likely and diagnostic tests for other causes of illness are negative. Re-testing should be considered in cases of suspected false negatives.The limit of detection for this assay is 800 copies/mL.This SARS CoV-2 test is a real-time RT-PCR test intended for the qualitative detection of nucleic acid from SARS-CoV-2 in a nasopharyngeal swab specimen collected from individuals susp ected of COVID-19 by their healthcare provider.This test has not been Food and Drug Administration (FDA) cleared or approved. This is a modified version of an approved [...] is revoked under Section 564(g) of the Act.Fact Sheet for Healthcare Providers:https://www.[employer].com/sites/default/files/product/documents/Fact_Shee i_FH_Smhcxkrxw_Rcte_HKUD-ZlD-0.pdfFact Sheet for Healthcare Patients:https://www.[employer].com/sites/default/files/product/ documents/Rhkd_Gadej_Auwugdjl_Cmql_BYXF-BpR-3.pdfPerforming Laboratory:[facility], [place] [address]PYT mqedcyh6725-66-06 11:43:07 Test Item Value Reference Range Interpretation Comments POC glucose (test code = 165 mg/dL 65-99 H [facility] Notified 44500-5) RNMeter ID: [id number] tor: Sher Miller Lab Interpretation (test Abnormal code = 86145-7) [facility] with platelet and xaptqzfwklpi7238-56-14 07:57:35 Test Item Value Reference Range Interpretation Comments WBC (test code = 88079-2) 7.22 4.50- 11.00 k/uL RBC (test code = 14298-1) 3.37 m/uL 4.2-5.5 L HGB (test code = 718-7) 9.4 g/dL 12-16 L HCT (test code = 4544-3) 30.9 % 37-47 L MCV (test code = 787-2) 91.7 fL 82-100 MCH (test code = 785-6) 27.9 pg 27-34 MCHC (test code = 786-4) 30.4 g/dL 31-37 L RDW - SD (test code = 60.5 fL 37-55 H 74830-9) MPV (test code = 87463-9) 11.6 fL 8.8-13.2 Platelet count (test code 246 150- 400 k/uL = 67432-0) Nucleated RBC (test code 0.00 /100 WBC = 58339-3) Neutrophils (test code = 71.7 % 39-69 H 51492-0) Lymphocytes (test code = 11.5 % 25-45 L 48093-7) Monocytes (test code = 12.2 % 0-10 H 20186-5) Eosinophils (test code = 2.9 % 0-5 57079-5) Basophils (test code = 0.6 % 0-1 37558-0) Immature granulocytes 1.1 % 0-1 H "Immat ure (test code = 35242-8) granul ocytes" (promyelocytes, myelocytes, metamyelocytes) Lab Interpretation (test Abnormal code = 61171-6) [facility] metabolic oznza5039-11-96 07:20:30 Test Item Value Reference Range Interpretation Comments Sodium (test code = 2951-2) 142 135- 148 mEq/L Potassium (test code = 2823-3) 3.9 3.5- 5.0 mEq/L Chloride (test code = 5-0) 101 98- 112 mEq/L CO2 (test code = 2027-9) 27 24- 31 mEq/L Anion gap (test code = 27171-6) 14@ANIO 7- 15 mEq/L BUN (test code = 3094-0) 41 mg/dL 8-23 H Creatinine (test code = 2160-0) 1.69 mg/dL 0.5-0.9 H Glucose (test code = 2345-7) 164 mg/dL 65-99 H Calcium (test code = 83601-5) 9.5 mg/dL 8.8-10.2 Lab Interpretation (test code = Abnormal 80228-7) [facility] MethodistMagnesium gdiay6322-59-26 07:20:29 Test Item Value Reference Range Interpretation Comments Magnesium (test code = 49663-7) 1.8 mg/dL 1.6-2.4 [facility] MethodistPhosphorus laejv8584-08-24 07:20:29 Test Item Value Reference Range Interpretation Comments Phosphorus (test code = 2777-1) 2.7 mg/dL 2.4-4.5 [facility] MethodistEstimated UFD1280-26-21 07:20:29 Test Item Value Reference Range Interpretation Comments Estimated GFR (test 28 mL/min/1.73 m2 Fritz Harini coffeyzoie Units code = 5488) InterpretationG 1 >=90 Paty l or highG2 60-89 Mildly decrease dG3a 45-59 Mil dly to moderately decr jvumsN7s 30-44 Moderately to s everely decreasedG4 15-29 Severe ly decreasedG5 <15 Kidney renée lureThe eGFR was calcul ated using the Chron ic Kidney Disease Epidemiology Collaboration ( CKD-EPI) equation. Interpretation is based on recommendati ons of the National Ki dney Foundation-Kidn ey Disease Outcome s Quality Initiat judi (NKF-KDOQI) pub lished in 2013. Lab Interpretation Abnormal (test code = 92467-7) [facility] MethodistXR Chest 1 Vw Hrpcbral9783-09-10 11:51:38Hm Interface, Radiology Results - 06/23/2019 11:54 AM CDTEXAMINATION: XR CHEST 1 VW PORTABLECLINICAL HISTORY: SOBCOMPARISON: June 18, 2019IMPRESSION:Since previous examination the right IJ catheter is been removed. Changes of a midline sternotomy are noted. There is a defibrillator overlying the right upper abdomen.There is cardiomegaly. Thoracic aorta is calcified and tortuous but not dilated. There is some minimal patchy atelectatic changes towards both lung bases with no definite infiltrate. [facility]-[id number] MethodistDigoxin khgwp9939-08-76 06:42:21 Test Item Value Reference Range Interpretation Comments Digoxin (test code = 0.9 ng/mL 0.8-2 For phillip id Digoxin 62771-5) results, at [address] 6 hours should el apse between time of last dose and collec tion of blood.Otherwise , result may be false high.Therapeuti c Range:0.8 - 2.0 ng/mL [facility] MethodistIonized quaqclr3878-35-55 06:27:25 Test Item Value Reference Range Interpretation Comments pH (test code = 2753-2) 7.51 Ionized calcium (test code = 1.07 mmol/L 1.11-1.32 L ) Lab Interpretation (test code = Abnormal 13364-6) [facility] MethodistPartial thromboplastin time, mjjvjfblo6182-35-83 06:15:53 Test Item Value Reference Range Interpretation Comments PTT (test code = 35.2 23.0- 36.0 [place] [address]-9) unfractionated heparin is61.0-112.0 se conds which corresponds to Anti-Xa0.3-0.7 U/ml. Tommie TfibcftwhTYR2559-46-77 04:45:35 Test Item Value Reference Range Interpretation Comments LDH (test code = 15932-8) 273 U/L 87-225 H Lab Interpretation (test code = Abnormal 55746-3) [facility] AragonistBlood culture, aerobic & uibkxhtjm5606-64-41 03:03:04 Test Item Value Reference Range Interpretation Comments Blood culture No growth Specimen isolate (test after 5 days InformationSpe cimen code = 600-7) of Source: BloodS pecimen incubation. Site: Radial, r ight Tom[facility] MethodistEC 12 udle9289-70-97 17:53:11 Test Item Value Reference Range Interpretation Comments Ventricular rate (test 82 code = 253) Atrial rate (test code 89 = 255) QRSD interval (test 100 code = 260) QT interval (test code 364 = 264) QTC interval (test 425 code = 265) QRS axis 1 (test code -7 = 268) T wave axis (test code 198 = 270) EKG impression (test Atrial fibrillation-Low code = 273) voltage QRS-Cannot rule out Anteroseptal infarct , age undetermined-Abnormal ECG-No previous ECGs available-Electronicall y Signed By Ramin Hill MD ([id number]) on 06/20/2019 5:53:08 PM [facility] MethodistManual oxffwfnzioko8871-57-57 08:33:07 Test Item Value Reference Range Interpretation Comments Manual differential (test PERFORMED code = 61823-7) Neutrophils (test code = 80.0 % 39-69 H 61720-4) Lymphocytes (test code = 10.0 % 25-45 L 11971-9) Monocytes (test code = 8.0 % 0-10 80717-2) Eosinophils (test code = 1.0 % 0-5 53180-2) Basophils (test code = 1.0 % 0-1 68347-5) Metamyelocytes (test code 0 % = 740-1) Promyelocytes (test code 0 % = 783-1) Platelet slide review Watson slt decr (test code = 84240-5) Anisocytosis (test code = Moderate 702-1) Polychromasia (test code Moderate = 08179-0) Ovalocytes (test code = Moderate 774-0) BERNADETTE (test code = BERNADETTE) __TROP_ results called to and read back by AFUA FULTON\\WT10(name/loc ation)at __ 06/19/2019 06:16 (date/time) by LSB_. Lab Interpretation (test Abnormal code = 48903-2) [facility] AragonYbohgkmnySpvgzcga0592-62-39 06:16:10 Test Item Value Reference Range Interpretation Comments Troponin (test code = 2.139 ng/mL 0-0.04 JOHNNY miller Yarsanism 37501-0) Laboratories ch anged methodology effective: 2018 at 10:00 amThe new method has a 99 th percentile cuto ff of 0.040 ng/mL Lab Interpretation Abnormal (test code = 02763-8) [facility] MethodistComprehensive metabolic lllga0789-81-79 05:21:50 Test Item Value Reference Range Interpretation Comments Sodium (test code = 138 135- 148 mEq/L 2951-2) Potassium (test code = 4.1 3.5- 5.0 mEq/L 2823-3) Chloride (test code = 99 98- 112 mEq/L 2075-0) CO2 (test code = 8-9) 25 24- 31 mEq/L Anion gap (test code = 14@ANIO 7- 15 mEq/L 64370-1) BUN (test code = 3094-0) 37 mg/dL 8-23 H Creatinine (test code = 1.90 mg/dL 0.5-0.9 H 2160-0) Glucose (test code = 137 mg/dL 65-99 H 2345-7) Calcium (test code = 8.5 mg/dL 8.8-10.2 L 58317-6) Protein (test code = 6.3 g/dL 6.3-8.3 Encamp[place] 2885-2) 4.6-7.0 g/dL 1 week 4.4-7.6 g/dL7 months-1year 5.1-7.3 g/dL 1-2 years 5.6-7.5 g/dL>3 years 6.0-8.0 g/dL18- 150 6.3-8.3 g/dL Albumin (test code = 3.9 g/dL 3.5-5 1751-7) A/G ratio (test code = 1.6 0.7-3.8 1759-0) Alkaline phosphatase 49 U/L 35-104 (test code = 6768-6) AST (test code = 1920-8) 623 U/L 10-35 H ALT (test code = 1742-6) 606 U/L 5-50 H Total bilirubin (test 1.0 mg/dL 0-1.2 code = 1974-2) Lab Interpretation (test Abnormal code = 76886-2) [place] MethodistLactic acid viehr4738-44-23 05:17:04 Test Item Value Reference Range Interpretation Comments Lactic acid (test code = 61960-5) 0.9 mmol/L 0.5-2.2 [place] MethodistHemoglobin & eihptnzbdq5726-85-67 01:52:21 Test Item Value Reference Range Interpretation Comments HGB (test code = 718-7) 9.4 g/dL 12-16 L HCT (test code = 4544-3) 30.3 % 37-47 L Lab Interpretation (test code = Abnormal 61131-8) [place] MethodistActivated clotting mtpa5483-45-46 19:52:41 Test Item Value Reference Range Interpretation Comments Activated clotting time 139 96- 152 sec Mete r ID: (test code = 5298) [id number] perator: Liz Brennan [place] MethodistO2 saturation, vddfql9987-11-85 12:02:02 Test Item Value Reference Range Interpretation Comments Hemoglobin, venous, syringe (test 8.9 g/dL 12-16 L code = 49437-8) O2 saturation, venous (test code = 78 % 40-70 H 2711-0) Lab Interpretation (test code = Abnormal 34228-3) [place] MethodistEchocardiogram complete w contrast and 3D if mknedy2962-26-44 11:01:00Interface, Radiology Results In - 06/18/2019 11:03 AM CDT Echocardiography Report [address] [place] [address] Pat.Name: NASIR DAS Pat.ID: [id number].Date: 06/18/2019 Refer.MD: KEO LEUNG MD Exam Time: 1:34:00 AM Study Type:Routine Echo Height: 67in BSA: 1.96 m2 Age: 1 1940,78Y Sex: FEMALE BP: 105/54 HR: 76 bpm Sonogrphr: FARHAD Nguyễn Pat. Stat.:Inpatient Room: [place] [address] Study Status:Final Echo Event ID:[id number] Order ID: [id number] Reason for Study:CHF History / Clinical:Coronary Artery Disease, Diabetes, Hypertension,Valvular Heart Disease; Aortic StenosisProcedures: 2D Echo, Colorflow Doppler, StrainRace: C SUMMARY: Bioprosthetic aortic valve. Aortic valve high velocity and pressuregradient is likely due to patient prosthesis mismatch given normal ACand AC/ET. However there is increase in peak velocities and cannotrule out concomitant structural valve degeneration. If indicated,CEDRICK/CT would be helpful LV EF is normal.Diastolic dysfunction Grade III (Severe): Impaired relaxation withrestrictive LV filling pressures.RV systolic function is depressed.At least moderate tricuspid regurgitation. Suboptimal/insufficient TRjet. Estimated PA systolic pressure is at least 54 mmHg, assuming amean RAP of 15 mmHg. FINDINGS: LV: LV size is normal. There is mild eccentric LV hypertrophy. LV EF is normal. Septal motion is paradoxical secondary to RV volume overload. Regional wall motion abnormalities present. Estimated EF is 60-64%. Basal Inferoseptal, Basal Inferior,Basal Inferolateral, Apical Septal zuniga are hypokinetic. Normalwall motion in all other zuniga.RV: RV size is enlarged. RV systolic function is depressed.LA: LA volume is moderately enlarged.RA: RA volume is enlarged.AO: Aortic root diameter is normal.CORTEZ: No pericardial effusion.AV: Bioprosthetic aortic valve. Surgical Prosthetic AV Doppler velocity index is 0.26 (normal>0.25). Aortic valve high velocity and pressure gradient is likely due to patient prosthesis mismatch given normal AC and AC/ET. However there is increase in peak velocities and cannot rule out concomitant structural valve degeneration.MV: Mild thickening of mitral leaflets. Thickened and/or calcified chordae. Mild mitral re gurgitation.PV: No structural PV abnormalities noted. A trace of pulmonic regurgitation. TV: No structural TV abnormalities noted. At least moderate tricuspid regurgitationDias: Diastolic dysfunction Grade III (Severe): Impaired relaxation with restrictive LV filling pressures.Other: Suboptimal/insufficient TR jet. Estimated PA systolic pressure is at least 54 mmHg, assuming a mean RAP of 15 mmHg. M EASUREMENTS: 2DParasternal LongAxis Ao Rtd 3.5 cm Index 1.8 cm/m2 LVPWd 1 cmIVSd 1 cm LA Ds 4.5 cm LVIDd 5.5 cm Index 2.8 cm/m2 RWT 0.4 LVIDs 3.6 cm LV Mass 205.3 g (87-129) LV%fs 33.8 % LVM Index 104.8 g/m2LA Sng Plane LAArea 26.2 cm2 (8.8-23.4) LA Vol 88.5 ml Index 45.2 ml/m2 LA LngAx6.4 cm LVOT For Flow LVOT 2 cm LVOT Area 3.1 cm2 DOPPLERAV For Flow/ROMIE AV pkVel 417.5 cm/s (100-170) AV TVI 86.8 cm AV mnVel 306.6 cm/s AVpkAcRt 86887.4 cm/s2 AV pkPG 69.7 mmHg AV DeRt 1474.2 cm/s2 AV Mean G 44 mmHg AV Area 0.8 cm2 (3-5) AV ET 283 msec AV AC 79 msec (83-118) AV AC/ET 0.3 Aortic Valve AV DI 0.3 LVOT For Flow LVOT TVI 22.7 cm LVOT CI 2.6 l/m/m2 LVOT SV 71.4 ml LVOTpkPG 5.2 mmHg LVOTpkVel 114.3 cm/s LVOTmnPG 3.2 mmHg LVOT CO 5.1 l/min HR 71 bpm LVOT SVi 36.4 ml/m2 WALL MOTION:---- RESTING WALL MOTION:Basal Inferoseptal, Basal Inferior, Basal Inferolateral, Apical Septalwalls are hypokinetic. Normal wall motion in all other zuniga.Wall Index = 1.2Signed 06/18/2019 11:01 Guillermina Uribe MethodistVitamin D 25 hydroxy zvozx8239-20-77 15:05:10 Test Item Value Reference Range Interpretation Comments Vitamin D, 25-hydroxy 20.3 ng/mL 30-150 L This a ssay reports (test code = 1989-3) the sum of 25-hydroxy yael min D3 and 25-hydro xy vitamin D2. Reference range :0-17 years:Deficienc y: less than 20ng/mLOptimum level: greater than or equal to 20 ng/mL.18 years and older:Deficienc y: less than 20ng/mLInsuffic iency : 20-29 ng/mLOp timum Level: 30-80 ng/mLThe assay reportable rang e is 3.4 155.9 ng/m L. Levels higher t garg 150 ng/mL may b e associated with toxicity.If tox icity is clinically suspected and t he reported result is >155.9 ng/mL,co ntact lab for alterna tive methods to obta in a definitive lev el.If separate quantitation of 25-hydroxy yael min D3 and 25-hydro xy vitamin D2 is needed, please contact lab for alternative met hods. Lab Interpretation Abnormal (test code = 73336-1) [facility] GoldbergXR Abdomen 1 Vw Ixqrxwmr1102-78-12 09:48:11Hm Interface, Radiology Results - 06/17/2019 9:51 AM CDTExamination: XR ABDOMEN 1 VW PORTABLEClinical history: "IABP lower end" Comparison: None IMPRESSION: The bowel gas pattern is nonspecific. There is no evidence of acute disease within the imaged portions of both lung bases. The imaged bones appear to be degenerative. Vascular calcification is seen. Surgical clips are seen in the right upper quadrant. Radiopaque density overlying the right kidney is compatible with a renal stone and measures 5 mm. Bladder probe is seen. [id number] Methodist Ferritin edjte4600-09-92 04:27:55 Test Item Value Reference Range Interpretation Comments Ferritin level (test code = 2276-4) 866 ng/mL 13-150 H Lab Interpretation (test code = Abnormal 52059-8) [facility] GoldbergParathyroid gzgduit8847-77-86 04:24:25 Test Item Value Reference Range Interpretation Comments PTH (test code = 2731-8) 192 pg/mL 15-65 H Lab Interpretation (test code = Abnormal 49669-8) [facility] GoldbergVancomycin level, ahjxfu9137-76-54 04:23:52 Test Item Value Reference Range Interpretation Comments Vancomycin, random (test code = 15.9 ug/mL 74033-5) [place] MethodjohannaTotal iron binding emqobubr3880-17-67 04:23:52 Test Item Value Reference Range Interpretation Comments Iron level (test code = 2498-4) 30 ug/dL 37-145 L Iron binding capacity (test code = 249 ug/dL 931-364 6785-7) % Saturation (test code = 2502-3) 12.0 % 15-38 L Lab Interpretation (test code = Abnormal 72286-3) [place] YarsanismVenous blood gkj1977-78-11 03:49:30 Test Item Value Reference Range Interpretation Comments pH, venous (test code = 2746-6) 7.36 7.32-7.42 pCO2, venous (test code = 1-4) 48 45- 51 mmHg pO2, venous (test code = 2705-2) 51 25- 40 mmHg H Base excess, venous (test code = 1 meq/L -2-2 1927-3) O2 saturation, venous (test code 81 % 40-70 H = 2711-0) Bicarbonate, venous (test code = 26.5 mmol/L 21-28 27764-4) Lab Interpretation (test code = Abnormal 86407-3) [facility] GoldbergUS Alytj0016-19-83 21:52:26Hm Interface, Radiology Results 06/16/2019 9:55 PM CDTEXAMINATION: US RENALCLINICAL HISTORY: Renal failure acute (kidney injury)COMPARISON: None.TECHNIQUE: Ultrasound evaluation of thekidneys and bladder.Findings:1. The right kidney measures 9.4 x 4.4 x 4.3 cm. The left kidney measures 9.8 x 4.8 x 4.3 cm. Evaluation of renal cortical echogenicity is limited by body habitus. Theredoes appear to be increased echogenicity when compared to the liver.2. No hydronephrosis or solid mass lesions. 9 mm cyst right kidney.3. Bladder is collapsed with a Mckeon catheter. There is some mild ascitic fluid in the pelvis and possibly adjacent to the liver.IMPRESSION:1.Increased renal cortical echogenicity suggests medical renal disease.2.No hydronephrosis.3.Additional findings as above.[facility]-[id number] Re[facility] MethodistB natriuretic iseqfuf3403-70-04 19:39:00 Test Item Value Reference Range Interpretation Comments BNP (test code = 00903-3) 446 pg/mL 0-100 H BERNADETTE (test code = BERNADETTE) _TROP__ results called to and read back by PETE BAJWA/GENEVIEVE AT 06/16/2019 18:50 BY LM1. Lab Interpretation (test Abnormal code = 08923-4) [place] MethodistCreatinine level, urine, yvhunc7273-17-32 13:30:59 Test Item Value Reference Range Interpretation Comments Creatinine, urine, random (test code 90 mg/dL = 07371-3) [place] MethodistProtein, urine, vzhabk1185-06-53 13:30:59 Test Item Value Reference Range Interpretation Comments Protein, urine random (test code = 15 mg/dL 2888-6) [place] MethodistUrea nitrogen, urine, ctpene2943-09-64 13:30:59 Test Item Value Reference Range Interpretation Comments Urea nitrogen, urine, random (test 508 mg/dL code = 3095-7) [place] MethodistSodium level, urine, mhnggk2477-12-21 13:30:58 Test Item Value Reference Range Interpretation Comments Sodium, urine, random (test code = 73 mEq/L 50263-9) [place] MethodistAnti Xa Lhurnxkz2781-54-32 12:00:46 Test Item Value Reference Range Interpretation Comments Anti Xa, Apixaban 72 ng/mL Therapeuti c ranges not (test code = available, typi starla levels 35774-2) 2-4 hrs post 2. 5 mg dose: 16-108 ng/mL; p ost 5 mg dose: 103-155 n g/mL. Apixaban is watson roved for use without mon itoring. Plasma apixaban levels depend on dose and sample timing. This te st has been modified from t he coating mixer supervisor's instructions.Th e performance characteristics were determined by [facility]i judith in a manner consiste nt with PRISCILLA cormier. This test has not be en cleared or approved by U.S. Food and Drug Admini stration. [facility] GoldbergProthrombin time with GWC8027-16-01 11:33:35 Test Item Value Reference Range Interpretation Comments Prothrombin time (test 25.5 11.5- 14.5 sec H code = 5902-2) INR (test code = 2.4 The Interna tional 85760-6) Normalized Rati o (INR) is a therapeuti c monitoring tool for patients who ar e stable on oral anticoagulant t herapy. An INR of 2.0-3 .0 is suggested for d eep vein thrombosis/pulm onary embolism. Lab Interpretation Abnormal (test code = 92797-0) [facility] MethodistArterial blood fko9390-09-95 10:54:23 Test Item Value Reference Range Interpretation Comments pH, arterial (test code = 2744-1) 7.35 7.35-7.45 pCO2, arterial (test code = 40 35- 45 mmHg 2019-04) pO2, arterial (test code = 133 80- 90 mmHg H 2703-7) Bicarbonate, arterial (test code 21.3 mmol/L 21-28 = 1960-4) Base excess, arterial (test code -4 -2 - 2 mEq-L L = 1925-7) O2 saturation, arterial (test 99 % 95-100 code = 2708-6) Lab Interpretation (test code = Abnormal 39309-2) Tom[facility] GoldbergHemoglobin R0a0660-62-49 08:48:57 Test Item Value Reference Range Interpretation Comments Hemoglobin A1C (test 10.3 % 4-5.6 H HbA1c c utoffs for code = 17301-3) diagnosing diabetes:4.0% - 5.6% = normal5.7% - 6.4% = increased risk for diabetes (prediabetes) >=6.5% = diabet es Goals for glyce gauri control (ADA 20 16)< 7.0% Target fo r non russ lts with diabetes. More or less stringe nt targets may be appropriate for individual tod ents. <7.5% Target for Children and adolescents wit h type 1 diabetes. Lab Interpretation (test Abnormal code = 91214-0) [facility] YarsanismUrine xipmkwb9471-22-62 08:42:48 Test Item Value Reference Range Interpretation Comments Urine culture Mixed chinyere Specimen isolate (test 10-5 col/cc InformationSpe [facility]en code = 76621-9) Source: Urin eSpecimen Site: Clean cat [facility] YarsanismGram ivkcd7570-32-99 08:42:48Gram stain resultOccasional WBC'sFew Gram positive cocci in pairsFew Gram negative rods Comment: Specimen InformationSpecimen Source: UrineSpecimen Site: Clean catch [facility] MethodistBeta csfnuaphubndhhg3596-59-36 02:04:41 Test Item Value Reference Range Interpretation Comments Beta hydroxybutyrate (test code = 0.42 mmol/L 0.02-0.27 H 6873-4) Lab Interpretation (test code = Abnormal 96227-2) [place] MethodistIABP UWGLLYNKN3357-84-89 01:28:02Keo Leung MD 06/16/2019 1:30 AMIABP placementDate/Time: 06/16/2019 1:28 AMPerformed by: Keo Leung MDAuthorized by: Keo Leung MD Consent: Consent obtained: Verbal Consent given by: Patient Risks discussed: Pneumothorax, hemorrhage, arrhythmia and local hematoma Alternatives discussed: Alternative treatmentUniversal protocol: Procedure explained and questions answered to patient or proxy's satisfaction: yes Relevant documents present and verified: yes Test results available and properly labeled: yes Imaging studies available: yes Required blood products, implants, devices, and special equipment available: no Immediately prior to procedure a time outwas called: yes Site/side marked: yes Patient identity confirmed: Verbally with patient and arm bandPre-procedure details: Indications: Ventricular assistAnesthesia (see MAR for exact dosages): Anesthesia method: Local infiltration Local anesthetic: Lidocaine 1% w/o epiProcedure details: Skin preparation: Skin prepped with 2% chlorhexadine Sterile barriers: All five maximal sterilebarriers used - gloves, gown, cap, mask and large sterile sheet Hand hygiene: Hand hygiene performed prior to IABP insertion Location: right femoral Patient position: Flat Catheter size: 8 Fr Pre-procedure: Megan zhu Ultrasound guidance: No Number of attempts: 1 Successful placement: Yes Post-procedure: Post-procedure: Line sutured and sterile dressing applied Assessment: Placement verified by x-ray, no pneumothorax on x-ray, free fluid flow and blood return through all parts Patient tolerance: Patient tolerated the procedure well with no immediate complicationsDeer River [facility]Gall[facility] difficile bkpdg6713-26-37 01:24:44 Test Item Value Reference Interpretation Comments Range Clostridium No Clostridium Specimen difficile toxin difficle toxin Informatio nSpecimen (test code = present Source: StoolSp ecimen 1085) [facility] echo 2d limited or follow up ipxsz2001-40-16 01:16:00 Interface, Radiology Results In - 06/16/2019 1:16 AM CDT Echocardiography Report [address]Name: NASIR DAS.ID: [id number].Date: 06/15/2019 Refer.MD: HERB DANIEL MDExam Time: 11:47:00 PM Study Type:Routine Echo Height: 67in Weight: 189lb BSA: 1.98 m2 Age: 1 1940,78Y Sex: FEMALE BP: 117/71 HR: 75 bpm Sonogrphr: Sandy Capellan. Stat.:Inpatient Room: [address] Study Status:Final Echo Event ID:[id number] Order ID: [id number] Reason for Study:SOB, abn CXR, heart failure suspectedHistory / Clinical:Coronary Artery Disease, Diabetes, Hypertension,Valvular Heart Disease; Aortic StenosisProcedures: Portable, Stat, 2D Echo,Colorflow Doppler LimitedRace: C SUMMARY:--------- Limited study.LV size is mildly enlarged. LV EF is severely depressed.RV is not well visualized but appears dilated with depressed function.Biatrial dilation.Prosthetic aortic valve. Unable to comment on function.Moderate tricuspid regurgitation.Doppler assessment of the valves was not performed. FINDINGS: --LV: LV size is mildly enlarged. LV EF is severely depressed. Global hypokinesis. Estimated EF is <20%.RV: RV is not well visualized but appears dilated with depressed function. LA: LA volume is moderately enlarged.RA: RA volume is enlarged.AO: Aortic root diameter is normal.CORTEZ: No pericardial effusion.AV: Prosthetic aortic valve.MV: No structural MV abnormalities noted. Mild mitral regurgitation. Etiology of MR is secondary to LV dysfunction and remodeling.PV: No structural PV abnormalities noted.TV: Dilated tricuspid annulus. Moderate tricuspid regurgitationOther: Estimated PA systolic pressure is 18 mmHg + RAP. MEASUREMENTS: --------- 2DParasternal Long [place] Ao An 1.4 cm LVPWd 1 cm Ao Rtd 2.5 cm Index 1.3 cm/m2 LA Ds 4.8 cm IVSd 1 cm RWT 0.4 LVIDd 5.2 cm Index 2.6 cm/m2 LV Mass 199.7 g (87-129) LVIDs 4.9 cm LVM Index 100.9 g/m2 LV%fs 5.1 % LVOT 1.9 cm LA Sng Plane LA Area 26.3 cm2 (8.8-23.4) LA Vol 87.3 ml Index 44.1 ml/m2LA LngAx 6.9 cm LVOT LVOT Area 2.9 cm2 DOPPLERTV Pressure Gradient TV PkVel 214.9 cm/s TV PG 18.5 mmHg Signed 06/16/2019 01:16 Guillermina Sears MethodistLipid [id number] 00:09:55 Test Item Value Reference Interpretation Comments Range Cholesterol (test 80 mg/dL <200 code = 2093-3) Triglycerides (test 107 mg/dL <150 code = 2571-8) HDL cholesterol 26 mg/dL >40 L (test code = 2085-9) LDL cholesterol 32 mg/dL <100 Result obtai erna by direct (test code = 2089-1) LDL suzan surement Lipid panel SeeBelow Total Cholester ol (mg/dL) interpretation (test < 200 code = 90523-3) Desirable 200-239 Borderline -high >=240 Hi gh Triglyceri nidia (mg/dL) <150 No rmal 150-199 Borderline-high 200-499 High >=500 Very high HDL Choles terol (mg/dL) <40 Low (male) < 40 Low (female) L DL Cholesterol (mg /dL) <100 Optimal 1 00-129 Near or above o ptimal 130-159 Borderline-high 160-189 High >=190 Very high Risk Cat ergories that modify LDL goals.Risk Catergories LDL goal (mg/dL )CHD and CHD risk equiva lent <100 (10-year risk >20%)Multiple ( 2+) risk factors < 130 (10-year risk = <20%)0-1 risk factors <160 (<10-ye ar risk) Defining levels of lipids in metabolic syndromeTriglyc erides > =150 mg/dLHDL Choles terol Men <40 mg/dL Women <40 mg/dL Non-HDL cholest ramos is a second target f or therapy in personswith high triglycerides ( >=200 mg/dL) Lab Interpretation Abnormal (test code = 36407-5) [place] MethodistArterial Line [id number] 23:39:58LatifAleida sun PA 06/15/2019 11:41 PMArterial Line InsertionDate/Time: 06/15/2019 11:40 PMPerformed by: Aleida Sandhu PAAuthorized by: Aleida Sandhu PA Indications: Indications: hemodynamic monitoring and multiple ABGs Pre- procedure details: Skin preparation: AlcoholAnesthesia (see MAR for exact dosages): Anesthesia method: Local infiltration Local anesthetic: Lidocaine 1% w/o epiProcedure details: Location: R radial Needle gauge: 20 G Placement technique: Ultrasound guided Number of attempts: 1 Transducer: waveform confirmed Post-procedure details: Post-procedure: Sterile dressing applied and sutured CMS: Normal Patient tolerance of procedure: Tolerated well, no immediate complicationsComments: Left side attempted but unable to pass wire. Henceswitched to right side.[facility] MethodistCentral Line Insertion 2019-06-15 23:37:49LatifAleida sun PA 06/16/2019 12:40 AMCentral Line InsertionPerformed by: Aleida Sandhu PAAuthorized by: Aleida Sandhu PA Pre-procedure details: Hand hygiene: Hand hygiene performed prior to insertion Sterile barrier technique: All elements of maximal sterile technique followed Skin preparation: 2% chlorhexidine Skin preparation agent: Skin preparation agent completely dried prior to procedure Anesthesia (see MAR for exact dosages): Anesthesia method: Local infiltration Local anesthetic: Lidocaine 1% w/o epiProcedure details: Catheter type: Triple lumen Catheter size: 7 Fr Catheter length (cm): 16 Catheter site: internal jugular vein Catheter Site Laterality: Right Patient position: Trendelenburg Landmarks identified: yes Ultrasound guidance: yes Sterile ultrasound techniques: Sterile gel and sterile probe covers were used Number of attempts: 1 Successful placement: yes Post-procedure details: Post- procedure: Dressing applied andline sutured Assessment: Blood return through all ports, no pneumothorax on x-ray and placement verified by x-ray Patient tolerance of procedure: Tolerated well, no immediate complicationsHouedward p. [facility] MethodistIonized calcium, [id number] 21:46:11 Test Item Value Reference Range Interpretation Comments Ionized calcium, arterial (test 1.17 mmol/L 1.11-1.32 code = 59716-2) [facility] MethodistXR Chest 2 [id number] 20:42:37Hm Interface, Radiology Results 06/15/2019 8:45 PM CDTEXAMINATION: XR CHEST 2 VWCLINICAL HISTORY: Shortness of breathCOMPARISON:October 16, 2013 .IMPRESSION:1.Heart size is enlarged. Median sternotomy wires overlie the midline. A unipolar epicardial pacemaker is in stable positioning relative to March 16, 2014.2.Left upper lobe scarring.3.Osseous structures are demineralized.FIDELIA-Montez GoldbergT4, [id number] 10:20:36 Test Item Value Reference Range Interpretation Comments T4, free (test code = 3024-7) 1.4 ng/dL 0.9-1.7 Tommie GoldbergThyroid stimulating [id number] 10:20:36 Test Item Value Reference Range Interpretation Comments TSH (test code = 3016-3) 3.06 0.27- 4.20 uIU/mL [facility] MethodistUrinalysis screen and microscopy, with reflex to culture 2019-06-15 05:35:32 Test Item Value Reference Range Interpretation Comments Specimen site (test code = Clean catch 7983468) Color, UA (test code = 5778-6) Dark Yellow Appearance, UA (test code = Hazy 5767-9) Specific gravity, UA (test code = 1.016 1.001-1.035 5811-5) pH, UA (test code = 5803-2) 5.0 5.0-8.5 Protein, UA (test code = 15196-8) 1+ Negative A Glucose, UA (test code = 97404-9) Negative Negative Ketones, UA (test code = 2514-8) Negative Negative Bilirubin, UA (test code = Negative Negative 5770-3) Blood, UA (test code = 5794-3) Moderate Negative A Nitrite, UA (test code = 5802-4) Negative Negative Urobilinogen, UA (test code = <2.0 <2.0 96192-8) Leukocyte esterase, UA (test code Moderate Negative A = 5799-2) Epithelial cells, UA (test code = 1 /HPF 5787-7) WBC, UA (test code = 5821-4) 26 0- 4 /HPF H RBC, UA (test code = 65831-5) 2 0- 5 /HPF Bacteria, UA (test code = Few None seen 66324-1) WBC clumps, UA (test code = Few A 00807-0) Yeast, UA (test code = 65011-6) None seen Yeast with pseudohyphae, UA (test None seen code = 98131-7) Hyaline casts, UA (test code = 9 /LPF 5796-8) Lab Interpretation (test code = Abnormal 83675-5) Tommie Goldberg
[2020-05-20 20:35] LABS: Absolute Lymphocytes (CBC) 0.6 K/uL (0.7-4.9); Basophils % 0.8 % (0-1.3); Hematocrit 41.6 % (36.0-45.0); Lymphocytes % 8.7 % (15.3-44.8); MPV 9.9 fL (7.6-11.3); RBC Red Blood Cell Count 4.89 M/uL (3.86-4.86)
[2020-05-20 20:40] LABS: Protime INR 1.4
--- NOTE | 2020-05-20 20:51 | RAD REPORT ---
EXAM DESCRIPTION: RAD - Chest Single View - 05/20/2020 8:31 pm CLINICAL HISTORY: CONGESTION COMPARISON: Portable Sujey TECHNIQUE: AP portable chest image was obtained 05/20/2020 8:31 pm . FINDINGS: Lungs are clear. Cardiac silhouette is enlarged but unchanged. No acute vascular engorgeme nt. Sternotomy wires are in place. Defibrillator device overlies the lower left chest. No measurable pleural effusion and no pneumothorax. No acute bony abnormality seen. No acute aortic findings suspec adina. IMPRESSION: Cardiomegaly similar to prior imaging. No acute CHF or volume overload. No acute mass or infiltrate.
[2020-05-20 20:58] LABS: Albumin 3.3 g/dL (3.4-5.0); Bilirubin Direct 0.3 mg/dL (0-0.2); Bilirubin Total 0.7 mg/dL (0.2-1.0); Potassium 3.8 mmol/L (3.5-5.1); Protein, Total 7.4 g/dL (6.4-8.2); Troponin (Emerg Dept Use Only) 0.1 ng/mL (0.0-0.045)
[2020-05-20] MEDS ORDERED: INSULIN -REGULAR HUMAN 50 UNIT/0.5 ML ML ONE (21:37)
[2020-05-20] MEDS ORDERED: D50W 25 GM/50 ML SYRINGE/VIAL IV ONE (21:39)
[2020-05-20] MEDS ORDERED: ONDANSETRON 4 MG/2 ML VIAL ONE (21:39)
[2020-05-20] MEDS ORDERED: METOPROLOL TARTRATE 5 MG/5 ML INJ IV ONE (23:03)
[2020-05-20] MEDS ORDERED: PROMETHAZINE INJ 25 MG/ML AMP ONE (23:08)
--- NOTE | 2020-05-21 02:38 | ER ---
Nurse's Notes [facility] Name: Lilian Avila Age: 79 yrs Sex: Female : 1940 Arrival Date: 05/20/2020 Time: 17:38 Bed 2 Private MD: Diagnosis: Atrial Fibrillation with Rapid Ventricular Response Presentation: 05/20 17:50 Chief complaint: Patient states: has had nausea and vomiting today and some mild abd iw pain, has also been having high and low BS at home. Coronavirus screen: At this time, the client does not indicate any symptoms associated with coronavirus-19. Ebola Screen: Patient negative for fever greater than or equal to 101.5 degrees Fahrenheit, and additional compatible Ebola Virus Disease symptoms Patient denies exposure to infectious person. Patient denies travel to an Ebola-affected area in the 21 days before illness onset. No symptoms or risks identified at this time. Initial Sepsis Screen: Does the patient meet any 2 criteria? No. Patient's initial sepsis screen is negative. Does the patient have a suspected source of infection? No. Patient's initial sepsis screen is negative. Risk Assessment: Do you want to hurt yourself or someone else? Patient reports no desire to harm self or others. Onset of symptoms was May 20, 2020. 17:50 Method Of Arrival: Wheelchair iw 17:50 Acuity: JARRETT 3 iw Historical: - Allergies: 17:53 Codeine (Hallucinations/agitation); iw 17:53 Morphine (Hallucinations/agitation); iw 17:53 PENICILLINS (rash); iw - Home Meds: 17:53 amiodarone 200 mg Oral tab [Active]; atorvastatin 80 mg Oral tab [Active]; clopidogrel iw 75 mg Oral tab 1 tab once daily [Active]; fluoxetine 20 mg Oral cap 1 cap [Active]; furosemide 40 mg Oral tab [Active]; gabapentin 300 mg Oral cap [Active]; Januvia 50 mg Oral tab [Active]; pantoprazole 40 mg Oral TbEC [Active]; primidone 50 mg Oral tab [Active]; spironolactone 50 mg Oral tab [Active]; - PMHx: 17:53 CHF; Diabetes - NIDDM; Hypertension; Myocardial infarction; iw - 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 - Social history:: Smoking status: Patient denies any tobacco usage or history of. Screenin:00 Abuse screen: Denies threats or abuse. Denies injuries from another. Nutritional rr5 screening: No deficits noted. Tuberculosis screening: No symptoms or risk factors identified. Fall Risk IV access (20 points). Ambulatory Aid- Crutches/Cane/Walker (15 pts). Gait- Normal/Bed Rest/Wheelchair (0 pts) Total Palmer Fall Scale indicates Low Risk Score (25-44 pts). Fall prevention measures have been instituted. Side Rails Up X 2 Frequent Obs/Assesments occuring As available Patient and Family Educated on Fall Prevention Program and strategies. Assessment: 19:40 General: Appears in no apparent distress. comfortable, Behavior is calm. rr5 19:40 Pain: Complains of pain in abdomen Pain Quality of pain is described as aching, Pain rr5 began gradually, Is intermittent. Neuro: Level of Consciousness is awake, alert, obeys commands, Oriented to person, place, time, situation. Cardiovascular: Capillary refill < 3 seconds Patient's skin is warm and dry. Respiratory: Airway is patent Respiratory effort is even, unlabored, Respiratory pattern is regular, symmetrical. GI: Abdomen is round non-distended, Reports nausea, vomiting, high and low sugar. : No signs and/or symptoms were reported regarding the genitourinary system. EENT: No signs and/or symptoms were reported regarding the EENT system. Derm: Skin is intact, is healthy with good turgor, Skin temperature is warm. Musculoskeletal: Reports pain in right knee since 3 months. 20:30 Reassessment: Patient appears in no apparent distress at this time. Patient is alert, rr5 oriented x 3, equal unlabored respirations, skin warm/dry/pink. 21:39 Reassessment: PATIENT LAB RESULTS RELAYED TO DR SCOTT. NEW ORDERS RECEIVED. GIVEN rv DEXTROSE [address] SCAN. 21:41 Neuro: Level of Consciousness is awake, alert, obeys commands, Oriented to person, rv place, time, situation. Cardiovascular: Rhythm is atrial fibrillation with rapid ventricular response With PVC's. Respiratory: Airway is patent Respiratory effort is even, unlabored. 22:50 Reassessment: ED provider informed patient HR 122 bpm afib RVR and complaints of nausea rr5 with order made and carried out. 23:50 Reassessment: Patient appears in no apparent distress at this time. Patient is alert, rr5 oriented x 3, equal unlabored respirations, skin warm/dry/pink. Patient states symptoms have improved. 05/21 00:40 Reassessment: Patient appears in no apparent distress at this time. repeat troponin rr5 extracted and sent. 01:10 Reassessment: reassess by ED provider. patient wants to be seen by his PCP in [place]. rr5 transfer initiated. 02:28 Reassessment: Patient appears in no apparent distress at this time. Patient is alert, rr5 oriented x 3, equal unlabored respirations, skin warm/dry/pink. awaiting for approval from [place]. 03:54 Reassessment: Patient appears in no apparent distress at this time. Patient is alert, rr5 oriented x 3, equal unlabored respirations, skin warm/dry/pink. report given to BUSHRA awake alert not in distress, vitally stable with IV cannula G20 right CA and left forearm intact. Vital Signs: 05/20 17:50 BP 117 / 89; Pulse 100; Resp 16; Temp 97.4; Pulse Ox 99% on R/A; Weight 68.04 kg; iw 20:30 BP 121 / 90; Pulse 107; Resp 19; Pulse Ox 95% on R/A; rv 21:40 BP 139 / 98; Pulse 108; Resp 16; Pulse Ox 94% on R/A; rv 22:50 BP 129 / 92; Pulse 122; Resp 19; Pulse Ox 99% ; rr5 23:09 BP 117 / 85; Pulse 88; Resp 16; Pulse Ox 98% ; rr5 05/21 00:16 BP 97 / 82; Pulse 84; Resp 20; Pulse Ox 94% ; rv 01:03 BP 104 / 63; Pulse 85; Resp 19; Pulse Ox 99% ; rr5 02:30 BP 95 / 60; Pulse 89; Resp 17; Temp 98; Pulse Ox 100% ; rr5 03:42 BP 101 / 77; Pulse 98; Resp 18; Pulse Ox 99% ; rr5 ED Course: 05/20 17:38 Patient arrived in ED. ds1 17:52 Triage completed. iw 17:53 Arm band placed on. iw 19:31 Chadwick Scott MD is Attending Physician. mh7 20:18 Js Bay, RN is Primary Nurse. rr5 20:25 EKG done, by ED staff, reviewed by Chadwick Scott MD. rr5 20:30 Patient has correct armband on for positive identification. Placed in gown. Bed in low rr5 position. Call light in reach. Side rails up X2. air sampling and monitoring on. Pulse ox on. NIBP on. 20:30 Inserted saline lock: 20 gauge in right antecubital area, using aseptic technique. rr5 ,using aseptic technique. inserted by yandel CAAL Blood collected. 20:31 Chest Single View XRAY In Process Unspecified. EDMS 22:12 CT Abd/Pelvis - Without Contrast In Process Unspecified. EDMS 05/21 01:03 Repeat lab(s) drawn. by me, sent to lab. rr5 01:15 Initiated transfer to [facility] spoke Julieta, pt. front desk receptionist Dr. Delgado is there. ar5 02:14 Julieta called stating that she cannot get a hold of Dr. Delgado yet. ar5 02:[address] Chaim Mcgregor Internal Medicine, gave acceptance. ar5 02:30 Acceptance given pending a bed by Julieta Paez. Accepting physician Dr. Chaim Mcgregor. ar5 03:13 Spoke with Julieta Paez pt. going to [facility] 20 rm. 2003. Call report to [facility] [phone]. 03:29 [place] [facility] will be here in 5 to 10 minutes. ar5 03:30 Inserted saline lock: 20 gauge in left forearm, using aseptic technique. Blood rr5 collected. 03:30 First set of blood cultures drawn by me. rr5 03:56 No provider procedures requiring assistance completed. Patient transferred, IV remains rr5 in place. intact, No redness/swelling at site. Administered Medications: 05/20 21:36 Drug: Zofran (Ondansetron) 4 mg Route: IVP; Site: right antecubital; rv 22:35 Follow up: Response: No adverse reaction rr5 21:36 Drug: D50W 50 ml Route: IVP; Site: right antecubital; rv 22:40 Follow up: Response: No adverse reaction; Blood sugar is elevated rr5 22:50 Drug: Lopressor 2.5 mg {Note: HR 122 bpm afib rvr.} Route: IVP; Site: right antecubital;rr5 23:50 Follow up: Response: No adverse reaction rr5 23:08 Drug: Phenergan 12.5 mg Route: IVP; Site: right antecubital; rr5 05/21 00:00 Follow up: Response: No adverse reaction rr5 03:00 Drug: Aspirin Chewable Tablet 162 mg Route: PO; rr5 03:57 Follow up: Response: No adverse reaction rr5 03:41 Drug: Lovenox 1 mg/kg Route: Sub-Q; Site: right lower abdomen; rr5 03:56 Follow up: Response: Medication administered at discharge. rr5 Point of Care Testing: Blood Glucose: 05/20 18:18 Blood Glucose: 87 mg/dL; iw Ranges: Output: 05/21 01:10 Stool: 1 (Loose Stool) ; Total: 0ml. rr5 Outcome: 02:38 ER care complete, transfer ordered by . 7 03:56 Transferred by ground EMS to [facility], Transfer form completed. rr5 03:56 Condition: stable 03:56 Instructed on the need for transfer. 03:57 Patient left the ED. rr5 Signatures: Dispatcher [employer] EDMS Aleena Solis ds1 Linda Mcgregor RN RN iw Blu Jj RN RN rv Roque, Raymond, RN RN rr5 Lindsay Mancilla hi5 Chadwick Scott MD MD 7 Corrections: (The following items were deleted from the chart) 01:21 01:10 Reassessment: reassess by ED provider. patient wants to be seen by his PCP in [address] planning for transfer. rr5 02:28 01:10 Reassessment: reassess by ED provider. patient wants to be seen by his PCP in [address] for the elevated troponin. planning for transfer. rr5
--- NOTE | 2020-05-21 02:38 | EDPHYS ---
Physician Documentation [facility] Name: Lilian Avila Age: 79 yrs Sex: Female : 1940 Arrival Date: 05/20/2020 Time: 17:38 Bed 2 Private MD: ED Physician Chadwick Scott HPI: 05/20 20:34 This 79 yrs old Female presents to ER via Wheelchair with complaints of mh7 Vomiting, High Blood Sugar. 20:35 The patient presents to the emergency department with nausea, that is moderate, mh7 vomiting, abdominal pain. 20:39 The patient presents to the emergency department with abdominal pain, of the umbilical mh7 area. Onset: The symptoms/episode began/occurred today. Possible causes: unknown. The symptoms are aggravated by nothing. The symptoms are alleviated by nothing. Associated signs and symptoms: Pertinent positives: abdominal pain, nausea, vomiting, Pertinent negatives: anorexia, belching, constipation, diarrhea, dysuria, fever, flatulence, GI bleeding, hematuria, vaginal discharge. Severity of symptoms: At their worst the symptoms were moderate today, in the emergency department the symptoms have improved moderately. 20:39 Associated signs and symptoms: Pertinent positives: low blood sugar. mh7 Historical: - Allergies: 17:53 Codeine (Hallucinations/agitation); iw 17:53 Morphine (Hallucinations/agitation); iw 17:53 PENICILLINS (rash); iw - Home Meds: 17:53 amiodarone 200 mg Oral tab [Active]; atorvastatin 80 mg Oral tab [Active]; clopidogrel iw 75 mg Oral tab 1 tab once daily [Active]; fluoxetine 20 mg Oral cap 1 cap [Active]; furosemide 40 mg Oral tab [Active]; gabapentin 300 mg Oral cap [Active]; Januvia 50 mg Oral tab [Active]; pantoprazole 40 mg Oral TbEC [Active]; primidone 50 mg Oral tab [Active]; spironolactone 50 mg Oral tab [Active]; - PMHx: 17:53 CHF; Diabetes - NIDDM; Hypertension; Myocardial infarction; iw - 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 - Social history:: Smoking status: Patient denies any tobacco usage or history of. ROS: 20:39 Constitutional: Negative for fever, chills, and weight loss, Eyes: Negative for injury, mh7 pain, redness, and discharge, ENT: Negative for injury, pain, and discharge, Neck: Negative for injury, pain, and swelling, Cardiovascular: Negative for chest pain, palpitations, and edema, Respiratory: Negative for shortness of breath, cough, wheezing, and pleuritic chest pain, Back: Negative for injury and pain, : Negative for injury, bleeding, discharge, and swelling, MS/Extremity: Negative for injury and deformity, Skin: Negative for injury, rash, and discoloration, Neuro: Negative for headache, weakness, numbness, tingling, and seizure, Psych: Negative for depression, anxiety, suicide ideation, homicidal ideation, and hallucinations, Allergy/Immunology: Negative for hives, rash, and allergies, Endocrine: Negative for neck swelling, polydipsia, polyuria, polyphagia, and marked weight changes, Hematologic/Lymphatic: Negative for swollen nodes, abnormal bleeding, and unusual bruising. Exam: 20:39 Constitutional: This is a well developed, well nourished patient who is awake, alert, mh7 and in no acute distress. Head/Face: Normocephalic, atraumatic. Eyes: Pupils equal round and reactive to light, extra-ocular motions intact. Lids and lashes normal. Conjunctiva and sclera are non-icteric and not injected. Cornea within normal limits. Periorbital areas with no swelling, redness, or edema. Neck: Trachea midline, no thyromegaly or masses palpated, and no cervical lymphadenopathy. Supple, full range of motion without nuchal rigidity, or vertebral point tenderness. No Meningismus. Chest/axilla: Normal chest wall appearance and motion. Nontender with no deformity. No lesions are appreciated. 20:39 Respiratory: Lungs have equal breath sounds bilaterally, clear to auscultation and percussion. No rales, rhonchi or wheezes noted. No increased work of breathing, no retractions or nasal flaring. 20:39 Cardiovascular: Rate: normal, Rhythm: irregularly irregular, Pulses: no pulse deficits are appreciated, Heart sounds: normal, normal S1and S2, Edema: is not appreciated, JVD: is not appreciated. 20:39 Abdomen/GI: Inspection: abdomen appears normal, Bowel sounds: normal, in all quadrants, Palpation: 05/21 06:58 ECG was reviewed by the Attending Physician. [facility] Vital Signs: 05/20 17:50 BP 117 / 89; Pulse 100; Resp 16; Temp 97.4; Pulse Ox 99% on R/A; Weight 68.04 kg; iw 20:30 BP 121 / 90; Pulse 107; Resp 19; Pulse Ox 95% on R/A; rv 21:40 BP 139 / 98; Pulse 108; Resp 16; Pulse Ox 94% on R/A; rv 22:50 BP 129 / 92; Pulse 122; Resp 19; Pulse Ox 99% ; rr5 23:09 BP 117 / 85; Pulse 88; Resp 16; Pulse Ox 98% ; rr5 05/21 00:16 BP 97 / 82; Pulse 84; Resp 20; Pulse Ox 94% ; rv 01:03 BP 104 / 63; Pulse 85; Resp 19; Pulse Ox 99% ; rr5 02:30 BP 95 / 60; Pulse 89; Resp 17; Temp 98; Pulse Ox 100% ; rr5 03:42 BP 101 / 77; Pulse 98; Resp 18; Pulse Ox 99% ; rr5 MDM: 05/20 20:06 Patient medically screened. [facility] 05/21 00:56 Differential diagnosis: Nonspecific abd pain, gastritis, pancreatitis, diverticulitis. [facility] Differential diagnosis: Hypoglycemia. Data reviewed: vital signs, nurses notes, lab test result(s), finger stick glucose, cardiac enzymes, CBC, electrolytes, urinalysis, EKG, radiologic studies, CT scan, plain films. 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 Interpretation: normal. 02:35 Counseling: I had a detailed discussion with the patient and/or guardian regarding: the [facility] historical points, exam findings, and any diagnostic results supporting the discharge/admit diagnosis, lab results, radiology results, the need for further work-up and treatment in the hospital. Response to treatment: the patient's symptoms have markedly improved after treatment. Special discussion: Patient requests transfer. 06:54 ED course: Patient requested transfer to [facility] with her manager field service, Dr. Crowley [facility]. Patient accepted Dr. Mcgregor at [facility] for Dr. Delgado.. 05/20 18:08 Order name: Glucose, Ancillary Testing; Complete Time: 20:16 EDMS 05/20 20:16 Order name: CBC with Diff; Complete Time: 21:32 7 05/20 20:16 Order name: Basic Metabolic Panel; Complete Time: 21:32 7 05/20 20:16 Order name: LFT's; Complete Time: 21:32 7 05/20 20:16 Order name: Protime (+inr); Complete Time: 21:32 7 05/20 20:16 Order name: Ptt, Activated; Complete Time: 21:32 7 05/20 20:16 Order name: Troponin (emerg Dept Use Only); Complete Time: 21:32 7 05/20 20:39 Order name: NT PRO-BNP; Complete Time: 21:32 EDMS 05/20 20:39 Order name: Lipase; Complete Time: 21:32 EDMS 05/20 22:59 Order name: Glucose, Ancillary Testing; Complete Time: 00:57 EDMS 05/21 00:58 Order name: Troponin (emerg Dept Use Only); Complete Time: 01:31 7 05/21 02:49 Order name: Blood Culture [facility] 05/20 20:16 Order name: EKG - Nurse/Tech; Complete Time: 20:29 7 05/20 20:17 Order name: Chest Single View XRAY; Complete Time: 21:32 7 05/20 20:30 Order name: IV Saline Lock; Complete Time: 21:00 5 05/20 21:34 Order name: CT Abd/Pelvis - Without Contrast [facility] EC:58 Rate is 113 beats/min. Rhythm is irregularly irregular, A fib with Rapid ventricular 7 response. No Q waves. No ST changes noted. Clinical impression: Atrial Fibrillation. Administered Medications: 05/20 21:36 Drug: Zofran (Ondansetron) 4 mg Route: IVP; Site: right antecubital; rv 22:35 Follow up: Response: No adverse reaction rr5 21:36 Drug: D50W 50 ml Route: IVP; Site: right antecubital; rv 22:40 Follow up: Response: No adverse reaction; Blood sugar is elevated rr5 22:50 Drug: Lopressor 2.5 mg {Note: HR 122 bpm afib rvr.} Route: IVP; Site: right antecubital;rr5 23:50 Follow up: Response: No adverse reaction rr5 23:08 Drug: Phenergan 12.5 mg Route: IVP; Site: right antecubital; rr5 05/21 00:00 Follow up: Response: No adverse reaction rr5 03:00 Drug: Aspirin Chewable Tablet 162 mg Route: PO; rr5 03:57 Follow up: Response: No adverse reaction rr5 03:41 Drug: Lovenox 1 mg/kg Route: Sub-Q; Site: right lower abdomen; rr5 03:56 Follow up: Response: Medication administered at discharge. rr5 Point of Care Testing: Blood Glucose: 05/20 18:18 Blood Glucose: 87 mg/dL; iw Ranges: Critical Glucose Levels:Adult <50 mg/dl or >400 mg/dl <40 mg/dl or >180 mg/dl Disposition: 05/21 06:56 Co-signature as Attending Physician, Chadwick Scott MD. mh7 Disposition: 05/21/20 02:38 Transfer ordered to [facility]. Diagnosis is Atrial Fibrillation with Rapid Ventricular Response. - Reason for transfer: Patient request. - Accepting physician is Dr. Spenser Mcgregor. - Condition is Stable. - Problem is an acute exacerbation. - Symptoms have improved. Signatures: Dispatcher [employer] Linda Dawson RN RN iw Vicente, Ronaldo, RN RN rv Roque, Raymond, RN RN rr5 Chadwick Scott MD MD mh7 Corrections: (The following items were deleted from the chart) 05/20 20:39 20:33 PROBNP+C.LAB.BRZ ordered. [facility] 20:39 20:34 LIPASE+C.LAB.BRZ ordered. [facility] EDMS 05/21 03:57 02:38 05/21/2020 02:38 Transfer ordered to [facility]. Diagnosis is Atrial rr5 Fibrillation with Rapid Ventricular Response. Reason for transfer: Patient request. Accepting physician is Dr. Spenser Mcgregor. Condition is Stable. Problem is an acute exacerbation. Symptoms have improved. 7
[2020-05-21] MEDS ORDERED: ASPIRIN 81 MG CHEWABLE TABLET ONE (02:44)
[2020-05-21] MEDS ORDERED: ENOXAPARIN 80 MG/0.8 ML SQ ONE (03:12)
--- NOTE | 2020-05-22 12:49 | RAD REPORT ---
EXAM DESCRIPTION: CT - Abdomen Pelvis Wo Contrast - 05/21/2020 5:53 am COMPARISON: None CLINICAL HISTORY: Abdominal pain TECHNIQUE: Multiple helical axial images were obtained through the abdomen and pelvis without intrav enous contrast. Sagittal and coronal reformatted images are reviewed as well. All CT scans at this facility use dose modulation, iterative reconstruction, and/or weight-based dosi ng when appropriate to reduce radiation dose to as low as reasonably achievable. FINDINGS: Lung bases: Battery pack device in the left lateral lower chest wall noted. Trace bilatera l pleural effusions demonstrated. There are a few localized tiny tree-in-bud like densities in the le ft lower lobe. Liver: Homogenous attenuation is demonstrated. Gallbladder/biliary: Cholecystectomy changes noted. No evidence of biliary ductal dilatation. Pancreas: Fatty changes are present. Spleen: Unremarkable. Adrenals: Unremarkable. Kidneys and ureters: No evidence of renal or ureteral stones. No hydronephrosis. There is a 1 cm roun ded hyperdensity in the midpole of the right kidney suggestive of a proteinaceous or hemorrhagic cyst . A few small calcific densities in the left renal hilar region may represent small stones versus vas cular calcifications. Bladder: Unremarkable. Pelvic organs: Unremarkable. Bowel: Several fluid containing small bowel loops are demonstrated. No evidence of bowel obstruction. No bowel wall thickening. Appendix appears unremarkable. Peritoneum: No free air. No significant free fluid. Lymph nodes: Unremarkable. Vasculature: Atherosclerosis of the abdominal and pelvic vasculature is demonstrated. Soft tissues: Tiny fat-containing umbilical hernia is demonstrated. There is a small ventral midline anterior abdominal wall hernia below the sternum containing a portion of the distal stomach. Bones: Right hip arthroplasty changes are present. Degenerative changes of the spine noted. There is 6 mm anterior subluxation of L4 relative to L5. There are laminectomy changes at L4. IMPRESSION: 1. No evidence for an acute process within the abdomen or pelvis. 2. Several fluid-containing bowel loops which can be seen with nonspecific diarrheal illness. 3. Few localized ebxc-si-iiw-like opacities in the left lower lobe which may be related to an infecti ous or inflammatory process. Trace bilateral pleural effusions. Electronically signed by: Hernan Samaniego MD 05/20/2020 10:39 PM CDT Due to temporary technical issues with the PACS/Fluency reporting system, reports are being signed by the in house radiologist without review as a courtesy to ensure prompt reporting. The interpreting r adiologist is fully responsible for the content of the report.
--- NOTE | 2020-05-23 07:02 | EKG ---
Test Date: 2020-05-20 Test Time: 22:45:31 Transmission Rebuilder: RR MEASUREMENT RESULTS: Intervals: Rate: 125 PA: QRSD: 100 QT: 314 QTc: 453 [place]: P: PA: QRS: 102 T: -74 INTERPRETIVE STATEMENTS: Atrial fibrillation with rapid ventricular response with premature ventricular or aberrantly conducted complexes Rightward axis Incomplete right bundle branch block Anteroseptal infarct, age undetermined Abnormal ECG Compared to ECG 05/20/2020 20:27:18 Right-axis deviation now present Myocardial infarct finding still present Electronically Signed On 05-23-20 07:00:14 CDT by Jackson Cuellar
--- NOTE | 2020-05-23 07:02 | EKG ---
Test Date: 2020-05-20 Test Time: 20:27:18 Rivet Catcher: RR MEASUREMENT RESULTS: Intervals: Rate: 113 [place]: QRSD: 100 QT: 344 QTc: 471 [place]: P: MI: QRS: 88 T: -28 INTERPRETIVE STATEMENTS: Atrial fibrillation with rapid ventricular response with premature ventricular or aberrantly conducted complexes Incomplete right bundle branch block Anteroseptal infarct, age undetermined Abnormal ECG Compared to ECG 03/29/2020 11:59:18 Ventricular premature complex(es) now present Incomplete right bundle-branch block now present Myocardial infarct finding still present Electronically Signed On 05-23-20 07:00:15 CDT by Jackson Cuellar
[2020-05-24 12:23] VITALS: TEMP 98
[2020-05-24 12:24] VITALS: BP 101/77; O2SAT 99
== END 2020-05-21 03:57 | disposition short-term general hospital (02) ==
LOC: ER 17:29
DX: I48.91 Unspecified atrial fibrillation (principal); R10.9 Unspecified abdominal pain; I10 Essential (primary) hypertension; E11.9 Type 2 diabetes mellitus without complications; Z95.1 Presence of aortocoronary bypass graft; Z88.0 Allergy status to penicillin; Z88.5 Allergy status to narcotic agent
CPT/HCPCS: 93005 ×2; 87040 ×2; 85025; 80048; 36415; 85610; 82947 ×2; 80076; 85730; 84484 ×2; 83690; 83880; 74176; 71045; 96375; 96372; 96374; 99285; J2550; J2405

== ENCOUNTER 2020-07-18 09:46 | Inpatient (IN) | payer OTHER ==
[2020-07-18] MEDS ORDERED: D50W 25 GM/50 ML SYRINGE/VIAL IV ONE ×3 (09:58→14:42)
[2020-07-18 10:17] LABS: Absolute Lymphocytes (CBC) 0.4 K/uL (0.7-4.9); Basophils % 0.7 % (0-1.3); Hematocrit 41.8 % (36.0-45.0); Lymphocytes % 4.5 % (15.3-44.8); MPV 9.6 fL (7.6-11.3); RBC Red Blood Cell Count 5.18 M/uL (3.86-4.86)
[2020-07-18 10:19] LABS: Protime INR 1.44
--- OUTSIDE RECORDS SUMMARY | 2020-07-18 10:40 | XMS REPORT | Clinical Summary ---
:1940 Author Organization [facility] Address [address] [place] [address] Care Team Providers Name Role Phone Unavailable Primary Care Provider Unavailable Allergies Not on File Medications Not on file Active Problems Not on file Encounters Date Type Specialty Care Team Description 03/30/2020 Lab Requisition Lab after 07/18/2019 Social History Tobacco Use Types Packs/Day Years Used Date Never Assessed Sex Assigned at Date Recorded Not on file Last Filed Vital Signs Not on file Plan of Treatment Not on file Procedures Procedure Name Priority Date/Time Associated Diagnosis Comme nts SARS-COV2/RT-PCR Routine 03/29/2020 9:15 PM Resu lts for this ([facility]) CDT procedure are in the results section. after 07/18/2019 Results SARS-CoV2/RT-PCR ([facility]) (03/29/2020 9:15 PM CDT) SARS-COV2/RT-PCR Negative Not Detected, [facility] Negative [facility] SARS-COV-2 [facility] PERFORMING LAB [facility] Specimen Other - Nasopharyngeal wall structure (b cody structure) Narrative Performed At Negative result for this test determines that [facility] SARS-CoV-2 RNA was not present in the [...] the Act. Fact Sheet for Healthcare Providers: https://www.[employer]/sites/default/files/pro duct/documents/Fact_Sheet_HC_Providers_Lyra_SA RS-CoV-2.pdf Fact Sheet for Healthcare Patients: https://www.[employer]/sites/default/files/pro duct/documents/Fact_Sheet_Patients_Lyra_SARS-C oV-2.pdf Performing Laboratory: [address] [address] Performing Organization Address City/State/Zipcode Phone Number [address] [address] CENTER after 07/18/2019
--- OUTSIDE RECORDS SUMMARY | 2020-07-18 10:40 | XMS REPORT | Clinical Summary ---
:1940 Author Organization [facility] Address [address] [place] [address] Care Team Providers Name Role Phone Asked, No Pcp Primary Care Provider Unavailable Allergies Active Allergy Reactions Severity Noted Date Comments Codeine Hallucinations High Morphine Hallucinations High Pt had it whe n son was born. Penicillin G Rash High Long time ago, pt can't remember. Medications Medication Sig Dispensed Refills Start End Date Status Date apixaban Take 2.5 mg by 0 Activ e (ELIQUIS) 2.5 mg mouth 2 (two) tablet times a day. insulin GLARGINE Inject 55 Units 0 0 Discontinued (LANTUS) 100 under the skin 20 (S top Taking at unit/mL injection daily. Di rakan) (vial) FLUoxetine Take 20 mg by 0 06/06/20 Disco ntinued (PROzac) 20 MG mouth daily. 20 (S top Taking at capsule Discharge) clopidogrel Take 75 mg by 0 06/06/20 Disc ontinued (PLAVIX) 75 mg mouth daily. 20 (S top Taking at tablet Discharge) primidone Take 50 mg by 0 06/06/20 Discon tinued (MYSOLINE) 50 MG mouth nightly. 20 (Stop Taking at tablet Discharge) atorvastatin Take 80 mg by 0 06/06/20 Dis continued (LIPITOR) 80 MG mouth nightly. 20 (Stop Taking at tablet Discharge) fenofibrate Take 134 mg by 0 06/06/20 Dis continued (LOFIBRA) 54 MG mouth daily. 20 ( Stop Taking at tablet Discharge) calcitriol Take 1 capsule 30 capsule 0 07/25/20 Exp ired (ROCALTROL) 0.25 (0.25 mcg total) 9 19 MCG capsule by mouth daily for 30 days. calcium carbonate Chew 2 tablets 60 tablet 0 0 (TUMS) 200 mg (1,000 mg total) 9 19 calcium (500 mg) daily for 30 chewable tablet days. carvedilol Take 1 tablet 60 tablet 2 07/24/20 Expir ed (COREG) 6.25 MG (6.25 mg total) 9 19 tablet by mouth 2 (two) times a day for 30 days. hydrALAZINE Take 1 tablet 90 tablet 3 07/24/20 Expi red (APRESOLINE) 100 (100 mg total) 9 19 MG tablet by mouth every 8 (eight) hours for 30 days. insulin lispro Inject 5 Units 10 mL 12 07/24/20 (HumaLOG) 100 under the skin 3 19 unit/mL injection (three) times a day with meals for 30 days. isosorbide Take 1 tablet 90 tablet 3 07/24/20 Expir ed dinitrate (20 mg total) by 19 (ISORDIL) 20 MG mouth 3 (three) tablet times a day for 30 days. loperamide Take 1 capsule 60 capsule 0 07/24/20 Exp ired (IMODIUM) 2 mg (2 mg total) by 19 capsule mouth 4 (four) times a day as needed for diarrhea for up to 30 days. pantoprazole Take 1 tablet 30 tablet 2 07/25/20 Exp ired (PROTONIX) 40 MG (40 mg total) by 19 EC tablet mouth daily for 30 days. sodium chloride 2 sprays into 15 mL 12 07/24/20 (OCEAN) 0.65 % each nostril as 06 10 nasal spray needed for rhinitis for up to 30 days. torsemide Take 3 tablets 180 tablet 2 07/24/20 Expi red (DEMADEX) 10 MG (30 mg total) by 9 19 tablet mouth 2 (two) times a day for 30 days. dextrose 50% Infuse 50 mL (25 0 07/02/20 syringe g total) into a 0 20 venous catheter every 20 (twenty) minutes as needed (If blood glucose is 40 mg/dL or LESS) for up to 30 days. dextrose 50% Infuse 25 mL 0 07/02/20 Expi red syringe (12.5 g total) 0 20 into a venous catheter every 20 (twenty) minutes as needed (If blood glucose is between 41-69 mg/dL) for up to 30 days. dextrose 10 % Infuse 40 mL/hr 500 mL 0 07/02/20 infusion into a venous 0 20 catheter continuously as needed (For bedside glucose LESS than 70 mg/dL) for up to 30 days. digOXIN (LANOXIN) Take 1 tablet 15 tablet 0 07/03/20 125 mcg (0.125 (125 mcg total) 0 20 mg) tablet by mouth every other day for 30 days. furosemide Take 1 tablet 60 tablet 0 07/02/20 Expir ed (LASIX) 40 mg (40 mg total) by 0 20 tablet mouth 2 (two) times a day for 30 days. glucagon 1 mg/mL Inject 1 mg into 0 recon soln the shoulder, 0 20 thigh, or buttocks every 15 (fifteen) minutes as needed (if patient NPO, unable to swallow safely with no IV access.) for up to 30 days. insulin lispro Inject 0-12 10 mL 12 07/02/20 Exp ired (ADMELOG) 100 Units under the 0 20 unit/mL injection skin 3 (three) times a day with meals for 30 days. insulin NPH Inject 20 Units 0 07/02/20 Ex pired (HumuLIN-N) 100 under the skin 0 20 unit/mL injection every 12 (twelve) hours for 30 days. simethicone Chew 1 tablet 0 07/02/20 Expi red (MYLICON) 80 MG (80 mg total) 0 20 chewable tablet every 6 (six) hours as needed for flatulence for up to 30 days. sod phos di, Take 2 tablets 0 06/02/20 Ex pired mono-K phos mono by mouth once 0 20 (PHOSPHA 250 for 1 dose. NEUTRAL) 250 mg tablet per tablet pantoprazole Take 1 tablet 30 tablet 0 07/02/20 Exp ired (Protonix) 40 MG (40 mg total) by 0 20 EC tablet mouth daily for 30 days. BUMETanide Take 1 mg by 0 06/06/20 Discon tinued (BUMEX) 1 MG mouth daily. 20 (Con tact Move - tablet Error) carvediloL Take 6.25 mg by 0 06/06/20 Dis continued (COREG) 6.25 MG mouth 2 (two) 20 (Contact Move - tablet times a day with Err or) meals. diltiazem CD Take 120 mg by 0 06/06/20 Di scontinued (CardIZEM CD) 120 mouth daily. 20 (Contact Move - MG 24 hr capsule Err or) diphenhydramine-z Apply topically 28.4 g 0 inc acetate 2-0.1 3 (three) times 0 20 % cream a day as needed for itching for up to 30 days. Active Problems Problem Noted Date Nausea and vomiting 05/21/2020 Cardiogenic shock 06/21/2019 Atrial fibrillation 06/15/2019 Essential hypertension 06/15/2019 Type 2 diabetes mellitus 06/15/2019 Encounters Date Type Specialty Care Team Description 05/21/2020 - Hospital Encounter General Internal Balbir, Cardi ogenic shock (HCC) (Primary Dx); 06/06/2020 Medicine Elvin O. SrRadha, Paroxysmal at rial fibrillation ([facility]); Essential hyper tension; Type 2 diabetes mellitus with hyperosmolarity without coma, with long-term current use of insulin ([facility]); Nausea and vomi ting, intractability of vomiting not specified, unspecified vomiting type; Longstanding pe rsistent atrial fibrillation; Non-intractable vomiting with nausea, unspecified vomiting type 05/21/2020 Travel after 07/18/2019 Immunizations Name Administration Dates Next Due FLUCELVAX QUAD PF 06/24/2019 Surgical History Surgery Date Site/Laterality Comments CATARACT EXTRACTION, BILATERAL Right 5 /6 years ago CHOLECYSTECTOMY pt don't know re member. BACK SURGERY EYE SURGERY REPLACEMENT TOTAL KNEE Right Medical History Medical History Date Comments Diabetes mellitus (HCC) Arthritis Myocardial infarction (HCC) Patient don' t remember when Coronary artery disease Family History Medical History Relation Name Comments [...] Not on file Last Filed Vital Signs Vital Sign Reading Time Taken Comments Blood Pressure 151/59 06/06/2020 3:39 PM CDT Pulse 61 06/06/2020 3:39 PM CDT Temperature 36.4 C (97.6 F) 06/06/2020 3:39 PM CDT Respiratory Rate 18 06/06/2020 3:39 PM CDT Oxygen Saturation 99% 06/06/2020 3:39 PM CDT Inhaled Oxygen Concentration - - Weight 75.5 kg (166 lb 6.4 oz) 06/06/2020 4:23 AM CDT Height - - Body Mass Index 25.3 06/18/2019 7:00 PM CDT Plan of Treatment Health Maintenance Due Date Last Done Comments DIABETES: RETINAL EYE EXAM 1948 DIABETIC FOOT EXAM 1948 URINE MICROALBUMIN 1948 SHINGLES VACCINES (#1) 1988 65+ PNEUMOCOCCAL VACCINE (1 of 1 - PPSV23) 2003 INFLUENZA VACCINE 04/22/2020 06/24/2019 Implants Implanted Type Area Pigment Mixer Device Shelf Model / Identifier Expiration Serial / Date Lot Defibrillator Defibrillator Icd Devices ICD Devices Procedures Procedure Name Priority Date/Time Associated Diagnosis Comme nts TROPONIN Timed 06/06/2020 1:00 Results for this PM CDT procedure are i n the results section. POC GLUCOSE Routine 06/06/2020 11:36 Results for this AM CDT procedure are i n the results section. POC GLUCOSE Routine 06/06/2020 7:51 Results for this AM CDT procedure are i n the results section. TROPONIN Timed 06/06/2020 7:31 Results for this AM CDT procedure are i n the results section. POC GLUCOSE Routine 06/06/2020 6:37 Results for this AM CDT procedure are i n the results section. POC GLUCOSE Routine 06/05/2020 9:29 Results for this PM CDT procedure are i n the results section. POC GLUCOSE Routine 06/05/2020 6:08 Results for this PM CDT procedure are i n the results section. POC GLUCOSE Routine 06/05/2020 11:47 Results for this AM CDT procedure are i n the results section. POC GLUCOSE Routine 06/05/2020 8:07 Results for this AM CDT procedure are i n the results section. COMPREHENSIVE Routine 06/05/2020 4:00 Results fo r this METABOLIC PANEL AM CDT procedure ar e in the results section. ESTIMATED GFR Routine 06/05/2020 4:00 Results fo r this AM CDT procedure are i n the results section. HC COMPLETE BLD COUNT Routine 06/05/2020 4:00 Re sults for this W/AUTO DIFF AM CDT procedure are i n the results section. PHOSPHORUS LEVEL Routine 06/05/2020 4:00 Results for this AM CDT procedure are i n the results section. MAGNESIUM LEVEL Routine 06/05/2020 4:00 Results for this AM CDT procedure are i n the results section. POC GLUCOSE Routine 06/05/2020 3:29 Results for this AM CDT procedure are i n the results section. POC GLUCOSE Routine 06/05/2020 3:18 Results for this AM CDT procedure are i n the results section. POC GLUCOSE Routine 06/04/2020 9:11 Results for this PM CDT procedure are i n the results section. POC GLUCOSE Routine 06/04/2020 6:12 Results for this PM CDT procedure are i n the results section. POC GLUCOSE Routine 06/04/2020 4:42 Results for this PM CDT procedure are i n the results section. POC GLUCOSE Routine 06/04/2020 12:08 Results for this PM CDT procedure are i n the results section. POC GLUCOSE Routine 06/04/2020 7:40 Results for this AM CDT procedure are i n the results section. ESTIMATED GFR Routine 06/04/2020 5:00 Results fo r this AM CDT procedure are i n the results section. PHOSPHORUS LEVEL Routine 06/04/2020 5:00 Results for this AM CDT procedure are i n the results section. MAGNESIUM LEVEL Routine 06/04/2020 5:00 Results for this AM CDT procedure are i n the results section. BASIC METABOLIC PANEL Routine 06/04/2020 5:00 Re sults for this AM CDT procedure are i n the results section. POC GLUCOSE Routine 06/03/2020 8:20 Results for this PM CDT procedure are i n the results section. POC GLUCOSE Routine 06/03/2020 5:03 Results for this PM CDT procedure are i n the results section. POC GLUCOSE Routine 06/03/2020 12:01 Results for this PM CDT procedure are i n the results section. POC GLUCOSE Routine 06/03/2020 7:51 Results for this AM CDT procedure are i n the results section. ESTIMATED GFR Routine 06/03/2020 4:00 Results fo r this AM CDT procedure are i n the results section. PHOSPHORUS LEVEL Routine 06/03/2020 4:00 Results for this AM CDT procedure are i n the results section. MAGNESIUM LEVEL Routine 06/03/2020 4:00 Results for this AM CDT procedure are i n the results section. BASIC METABOLIC PANEL Routine 06/03/2020 4:00 Re sults for this AM CDT procedure are i n the results section. DIGOXIN LEVEL Routine 06/03/2020 4:00 Results fo r this AM CDT procedure are i n the results section. HEPATIC FUNCTION PANEL Routine 06/03/2020 4:00 R esults for this AM CDT procedure are i n the results section. POC GLUCOSE Routine 06/02/2020 9:30 Results for this PM CDT procedure are i n the results section. POC GLUCOSE Routine 06/02/2020 5:15 Results for this PM CDT procedure are i n the results section. POC GLUCOSE Routine 06/02/2020 11:58 Results for this AM CDT procedure are i n the results section. POC GLUCOSE Routine 06/02/2020 8:27 Results for this AM CDT procedure are i n the results section. POC GLUCOSE Routine 06/02/2020 6:49 Results for this AM CDT procedure are i n the results section. PARTIAL THROMBOPLASTIN Routine 06/02/2020 4:40 R esults for this TIME (PTT) AM CDT procedure are i n the results section. ESTIMATED GFR Routine 06/02/2020 4:00 Results fo r this AM CDT procedure are i n the results section. HEPATIC FUNCTION PANEL Routine 06/02/2020 4:00 R esults for this AM CDT procedure are i n the results section. PHOSPHORUS LEVEL Routine 06/02/2020 4:00 Results for this AM CDT procedure are i n the results section. MAGNESIUM LEVEL Routine 06/02/2020 4:00 Results for this AM CDT procedure are i n the results section. BASIC METABOLIC PANEL Routine 06/02/2020 4:00 Re sults for this AM CDT procedure are i n the results section. URINALYSIS SCREEN AND Routine 06/02/2020 2:00 Re sults for this MICROSCOPY, WITH AM CDT procedure a re in REFLEX TO CULTURE the result s section. URINE CULTURE Routine 06/02/2020 2:00 Results fo r this AM CDT procedure are i n the results section. POC GLUCOSE Routine 06/01/2020 9:00 Results for this PM CDT procedure are i n the results section. COVID-19 QUALITATIVE Routine 06/01/2020 7:48 Res ults for this PCR PM CDT procedure are i n the results section. POC GLUCOSE Routine 06/01/2020 5:38 Results for this PM CDT procedure are i n the results section. POC GLUCOSE Routine 06/01/2020 12:34 Results for this PM CDT procedure are i n the results section. POC GLUCOSE Routine 06/01/2020 9:00 Results for this AM CDT procedure are i n the results section. POC GLUCOSE Routine 06/01/2020 5:12 Results for this AM CDT procedure are i n the results section. ESTIMATED GFR Routine 06/01/2020 5:00 Results fo r this AM CDT procedure are i n the results section. HEPATIC FUNCTION PANEL Routine 06/01/2020 5:00 R esults for this AM CDT procedure are i n the results section. DIGOXIN LEVEL Routine 06/01/2020 5:00 Results fo r this AM CDT procedure are i n the results section. PHOSPHORUS LEVEL Routine 06/01/2020 5:00 Results for this AM CDT procedure are i n the results section. MAGNESIUM LEVEL Routine 06/01/2020 5:00 Results for this AM CDT procedure are i n the results section. BASIC METABOLIC PANEL Routine 06/01/2020 5:00 Re sults for this AM CDT procedure are i n the results section. POC GLUCOSE Routine 05/31/2020 11:23 Results for this PM CDT procedure are i n the results section. PARTIAL THROMBOPLASTIN Routine 05/31/2020 11:20 R esults for this TIME (PTT) PM CDT procedure are i n the results section. POC GLUCOSE Routine 05/31/2020 9:03 Results for this PM CDT procedure are i n the results section. POC GLUCOSE Routine 05/31/2020 5:35 Results for this PM CDT procedure are i n the results section. PARTIAL THROMBOPLASTIN Timed 05/31/2020 4:15 R esults for this TIME (PTT) PM CDT procedure are i n the results section. POC GLUCOSE Routine 05/31/2020 12:17 Results for this PM CDT procedure are i n the results section. PARTIAL THROMBOPLASTIN Routine 05/31/2020 8:35 R esults for this TIME (PTT) AM CDT procedure are i n the results section. POC GLUCOSE Routine 05/31/2020 8:14 Results for this AM CDT procedure are i n the results section. ESTIMATED GFR Routine 05/31/2020 12:45 Results fo r this AM CDT procedure are i n the results section. PHOSPHORUS LEVEL Routine 05/31/2020 12:45 Results for this AM CDT procedure are i n the results section. MAGNESIUM LEVEL Routine 05/31/2020 12:45 Results for this AM CDT procedure are i n the results section. BASIC METABOLIC PANEL Routine 05/31/2020 12:45 Re sults for this AM CDT procedure are i n the results section. B NATRIURETIC PEPTIDE Routine 05/31/2020 12:45 Re sults for this AM CDT procedure are i n the results section. PARTIAL THROMBOPLASTIN Timed 05/31/2020 12:45 R esults for this TIME (PTT) AM CDT procedure are i n the results section. DIGOXIN LEVEL Routine 05/31/2020 12:45 Results fo r this AM CDT procedure are i n the results section. POC GLUCOSE Routine 05/30/2020 9:29 Results for this PM CDT procedure are i n the results section. POC GLUCOSE Routine 05/30/2020 5:27 Results for this PM CDT procedure are i n the results section. PARTIAL THROMBOPLASTIN Timed 05/30/2020 2:05 R esults for this TIME (PTT) PM CDT procedure are i n the results section. POC GLUCOSE Routine 05/30/2020 11:32 Results for this AM CDT procedure are i n the results section. POC GLUCOSE Routine 05/30/2020 8:03 Results for this AM CDT procedure are i n the results section. MAGNESIUM LEVEL Routine 05/30/2020 6:09 Results for this AM CDT procedure are i n the results section. ESTIMATED GFR Routine 05/30/2020 6:09 Results fo r this AM CDT procedure are i n the results section. PARTIAL THROMBOPLASTIN STAT 05/30/2020 6:09 R esults for this TIME (PTT) AM CDT procedure are i n the results section. BASIC METABOLIC PANEL Routine 05/30/2020 6:09 Re sults for this AM CDT procedure are i n the results section. HC COMPLETE BLD COUNT Routine 05/30/2020 6:09 Re sults for this W/AUTO DIFF AM CDT procedure are i n the results section. HEPATIC FUNCTION PANEL Routine 05/30/2020 6:09 R esults for this AM CDT procedure are i n the results section. B NATRIURETIC PEPTIDE Routine 05/30/2020 6:00 Re sults for this AM CDT procedure are i n the results section. POC GLUCOSE Routine 05/29/2020 9:21 Results for this PM CDT procedure are i n the results section. PARTIAL THROMBOPLASTIN Timed 05/29/2020 9:00 R esults for this TIME (PTT) PM CDT procedure are i n the results section. POC GLUCOSE Routine 05/29/2020 6:20 Results for this PM CDT procedure are i n the results section. PARTIAL THROMBOPLASTIN STAT 05/29/2020 12:20 R esults for this TIME (PTT) PM CDT procedure are i n the results section. POC GLUCOSE Routine 05/29/2020 12:17 Results for this PM CDT procedure are i n the results section. POC GLUCOSE Routine 05/29/2020 8:23 Results for this AM CDT procedure are i n the results section. BASIC METABOLIC PANEL Routine 05/29/2020 5:50 Re sults for this AM CDT procedure are i n the results section. ESTIMATED GFR Routine 05/29/2020 5:50 Results fo r this AM CDT procedure are i n the results section. PARTIAL THROMBOPLASTIN Routine 05/29/2020 5:50 R esults for this TIME (PTT) AM CDT procedure are i n the results section. MAGNESIUM LEVEL Routine 05/29/2020 5:50 Results for this AM CDT procedure are i n the results section. B NATRIURETIC PEPTIDE Routine 05/29/2020 5:50 Re sults for this AM CDT procedure are i n the results section. HEPATIC FUNCTION PANEL Routine 05/29/2020 5:50 R esults for this AM CDT procedure are i n the results section. POC GLUCOSE Routine 05/28/2020 9:03 Results for this PM CDT procedure are i n the results section. PARTIAL THROMBOPLASTIN Routine 05/28/2020 7:54 R esults for this TIME (PTT) PM CDT procedure are i n the results section. POC GLUCOSE Routine 05/28/2020 5:31 Results for this PM CDT procedure are i n the results section. ANTI XA, Routine 05/28/2020 3:20 Results for this UNFRACTIONATED PM CDT procedure are in the results section. POC GLUCOSE Routine 05/28/2020 12:20 Results for this PM CDT procedure are i n the results section. POC GLUCOSE Routine 05/28/2020 7:47 Results for this AM CDT procedure are i n the results section. POC GLUCOSE Routine 05/28/2020 5:30 Results for this AM CDT procedure are i n the results section. ECG 12-LEAD Routine 05/28/2020 4:02 Results for this AM CDT procedure are i n the results section. DIGOXIN LEVEL Routine 05/28/2020 4:00 Results fo r this AM CDT procedure are i n the results section. ESTIMATED GFR Routine 05/28/2020 4:00 Results fo r this AM CDT procedure are i n the results section. PHOSPHORUS LEVEL Routine 05/28/2020 4:00 Results for this AM CDT procedure are i n the results section. MAGNESIUM LEVEL Routine 05/28/2020 4:00 Results for this AM CDT procedure are i n the results section. IONIZED CALCIUM Routine 05/28/2020 4:00 Results for this AM CDT procedure are i n the results section. BASIC METABOLIC PANEL Routine 05/28/2020 4:00 Re sults for this AM CDT procedure are i n the results section. HEPATIC FUNCTION PANEL Routine 05/28/2020 4:00 R esults for this AM CDT procedure are i n the results section. PARTIAL THROMBOPLASTIN Timed 05/28/2020 3:45 R esults for this TIME (PTT) AM CDT procedure are i n the results section. HC COMPLETE BLD COUNT Routine 05/28/2020 3:45 Re sults for this W/AUTO DIFF AM CDT procedure are i n the results section. B NATRIURETIC PEPTIDE Routine 05/28/2020 3:45 Re sults for this AM CDT procedure are i n the results section. POC GLUCOSE Routine 05/27/2020 11:24 Results for this PM CDT procedure are i n the results section. PARTIAL THROMBOPLASTIN Timed 05/27/2020 7:55 R esults for this TIME (PTT) PM CDT procedure are i n the results section. POC GLUCOSE Routine 05/27/2020 7:44 Results for this PM CDT procedure are i n the results section. POC GLUCOSE Routine 05/27/2020 3:24 Results for this PM CDT procedure are i n the results section. POC GLUCOSE Routine 05/27/2020 11:12 Results for this AM CDT procedure are i n the results section. POC GLUCOSE Routine 05/27/2020 11:11 Results for this AM CDT procedure are i n the results section. POC GLUCOSE Routine 05/27/2020 7:29 Results for this AM CDT procedure are i n the results section. POC GLUCOSE Routine 05/27/2020 3:21 Results for this AM CDT procedure are i n the results section. ESTIMATED GFR Routine 05/27/2020 1:06 Results fo r this AM CDT procedure are i n the results section. DIGOXIN LEVEL Routine 05/27/2020 1:06 Results fo r this AM CDT procedure are i n the results section. PHOSPHORUS LEVEL Routine 05/27/2020 1:06 Results for this AM CDT procedure are i n the results section. MAGNESIUM LEVEL Routine 05/27/2020 1:06 Results for this AM CDT procedure are i n the results section. IONIZED CALCIUM Routine 05/27/2020 1:06 Results for this AM CDT procedure are i n the results section. BASIC METABOLIC PANEL Routine 05/27/2020 1:06 Re sults for this AM CDT procedure are i n the results section. HEPATIC FUNCTION PANEL Routine 05/27/2020 1:06 R esults for this AM CDT procedure are i n the results section. HC COMPLETE BLD COUNT Routine 05/27/2020 12:18 Re sults for this W/AUTO DIFF AM CDT procedure are i n the results section. B NATRIURETIC PEPTIDE Routine 05/27/2020 12:18 Re sults for this AM CDT procedure are i n the results section. PARTIAL THROMBOPLASTIN Routine 05/27/2020 12:18 R esults for this TIME (PTT) AM CDT procedure are i n the results section. PROTHROMBIN TIME WITH Routine 05/27/2020 12:18 Re sults for this INR AM CDT procedure are i n the results section. POC GLUCOSE Routine 05/26/2020 11:18 Results for this PM CDT procedure are i n the results section. POC GLUCOSE Routine 05/26/2020 7:25 Results for this PM CDT procedure are i n the results section. POC GLUCOSE Routine 05/26/2020 3:07 Results for this PM CDT procedure are i n the results section. POC GLUCOSE Routine 05/26/2020 10:57 Results for this AM CDT procedure are i n the results section. POC GLUCOSE Routine 05/26/2020 7:01 Results for this AM CDT procedure are i n the results section. XR CHEST 1 VW PORTABLE Routine 05/26/2020 6:05 R esults for this AM CDT procedure are i n the results section. POC GLUCOSE Routine 05/26/2020 3:55 Results for this AM CDT procedure are i n the results section. ESTIMATED GFR Routine 05/26/2020 12:56 Results fo r this AM CDT procedure are i n the results section. PHOSPHORUS LEVEL Routine 05/26/2020 12:56 Results for this AM CDT procedure are i n the results section. MAGNESIUM LEVEL Routine 05/26/2020 12:56 Results for this AM CDT procedure are i n the results section. BASIC METABOLIC PANEL Routine 05/26/2020 12:56 Re sults for this AM CDT procedure are i n the results section. HEPATIC FUNCTION PANEL Routine 05/26/2020 12:56 R esults for this AM CDT procedure are i n the results section. POC GLUCOSE Routine 05/26/2020 12:53 Results for this AM CDT procedure are i n the results section. IONIZED CALCIUM, Routine 05/26/2020 12:32 Results for this ARTERIAL AM CDT procedure are i n the results section. HEMOGLOBIN A1C Routine 05/26/2020 12:32 Results f or this AM CDT procedure are i n the results section. B NATRIURETIC PEPTIDE Routine 05/26/2020 12:32 Re sults for this AM CDT procedure are i n the results section. ARTERIAL BLOOD GAS Routine 05/26/2020 12:32 Resul ts for this AM CDT procedure are i n the results section. HC COMPLETE BLD COUNT Routine 05/26/2020 12:32 Re sults for this W/AUTO DIFF AM CDT procedure are i n the results section. PARTIAL THROMBOPLASTIN Routine 05/26/2020 12:32 R esults for this TIME (PTT) AM CDT procedure are i n the results section. PROTHROMBIN TIME WITH Routine 05/26/2020 12:32 Re sults for this INR AM CDT procedure are i n the results section. POC GLUCOSE Routine 05/25/2020 10:58 Results for this PM CDT procedure are i n the results section. POC GLUCOSE Routine 05/25/2020 9:08 Results for this PM CDT procedure are i n the results section. POC GLUCOSE Routine 05/25/2020 7:37 Results for this PM CDT procedure are i n the results section. POC GLUCOSE Routine 05/25/2020 6:35 Results for this PM CDT procedure are i n the results section. POC GLUCOSE Routine 05/25/2020 5:32 Results for this PM CDT procedure are i n the results section. IONIZED CALCIUM Routine 05/25/2020 4:30 Results for this PM CDT procedure are i n the results section. POC GLUCOSE Routine 05/25/2020 4:21 Results for this PM CDT procedure are i n the results section. POC GLUCOSE Routine 05/25/2020 1:52 Results for this PM CDT procedure are i n the results section. POC GLUCOSE Routine 05/25/2020 12:17 Results for this PM CDT procedure are i n the results section. POC GLUCOSE Routine 05/25/2020 11:10 Results for this AM CDT procedure are i n the results section. POC GLUCOSE Routine 05/25/2020 9:48 Results for this AM CDT procedure are i n the results section. ECG 12-LEAD Routine 05/25/2020 9:22 Results for this AM CDT procedure are i n the results section. POC GLUCOSE Routine 05/25/2020 8:02 Results for this AM CDT procedure are i n the results section. POC GLUCOSE Routine 05/25/2020 7:03 Results for this AM CDT procedure are i n the results section. XR CHEST 1 VW PORTABLE STAT 05/25/2020 6:42 R esults for this AM CDT procedure are i n the results section. POC GLUCOSE Routine 05/25/2020 6:14 Results for this AM CDT procedure are i n the results section. POC GLUCOSE Routine 05/25/2020 5:10 Results for this AM CDT procedure are i n the results section. POC GLUCOSE Routine 05/25/2020 3:45 Results for this AM CDT procedure are i n the results section. POC GLUCOSE Routine 05/25/2020 2:07 Results for this AM CDT procedure are i n the results section. POC GLUCOSE Routine 05/25/2020 12:03 Results for this AM CDT procedure are i n the results section. ESTIMATED GFR Routine 05/25/2020 12:00 Results fo r this AM CDT procedure are i n the results section. VENOUS BLOOD GAS Routine 05/25/2020 12:00 Results for this AM CDT procedure are i n the results section. ARTERIAL BLOOD GAS Routine 05/25/2020 12:00 Resul ts for this AM CDT procedure are i n the results section. PARTIAL THROMBOPLASTIN Routine 05/25/2020 12:00 R esults for this TIME (PTT) AM CDT procedure are i n the results section. PROTHROMBIN TIME WITH Routine 05/25/2020 12:00 Re sults for this INR AM CDT procedure are i n the results section. PHOSPHORUS LEVEL Routine 05/25/2020 12:00 Results for this AM CDT procedure are i n the results section. MAGNESIUM LEVEL Routine 05/25/2020 12:00 Results for this AM CDT procedure are i n the results section. IONIZED CALCIUM Routine 05/25/2020 12:00 Results for this AM CDT procedure are i n the results section. HC COMPLETE BLD COUNT Routine 05/25/2020 12:00 Re sults for this W/AUTO DIFF AM CDT procedure are i n the results section. BASIC METABOLIC PANEL Routine 05/25/2020 12:00 Re sults for this AM CDT procedure are i n the results section. VANCOMYCIN LEVEL, Routine 05/25/2020 12:00 Result s for this RANDOM AM CDT procedure are i n the results section. HEPATIC FUNCTION PANEL Routine 05/25/2020 12:00 R esults for this AM CDT procedure are i n the results section. GGT Routine 05/25/2020 12:00 Results for this AM CDT procedure are i n the results section. B NATRIURETIC PEPTIDE Routine 05/25/2020 12:00 Re sults for this AM CDT procedure are i n the results section. POC GLUCOSE Routine 05/24/2020 10:51 Results for this PM CDT procedure are i n the results section. POC GLUCOSE Routine 05/24/2020 10:04 Results for this PM CDT procedure are i n the results section. POC GLUCOSE Routine 05/24/2020 9:21 Results for this PM CDT procedure are i n the results section. POC GLUCOSE Routine 05/24/2020 7:54 Results for this PM CDT procedure are i n the results section. POC GLUCOSE Routine 05/24/2020 6:03 Results for this PM CDT procedure are i n the results section. POC GLUCOSE Routine 05/24/2020 5:06 Results for this PM CDT procedure are i n the results section. SODIUM LEVEL Routine 05/24/2020 4:45 Results for this PM CDT procedure are i n the results section. POC GLUCOSE Routine 05/24/2020 4:04 Results for this PM CDT procedure are i n the results section. POC GLUCOSE Routine 05/24/2020 2:49 Results for this PM CDT procedure are i n the results section. POC GLUCOSE Routine 05/24/2020 1:54 Results for this PM CDT procedure are i n the results section. POC GLUCOSE Routine 05/24/2020 1:03 Results for this PM CDT procedure are i n the results section. PARTIAL THROMBOPLASTIN Routine 05/24/2020 12:30 R esults for this TIME (PTT) PM CDT procedure are i n the results section. PROTHROMBIN TIME WITH Routine 05/24/2020 12:30 Re sults for this INR PM CDT procedure are i n the results section. POC GLUCOSE Routine 05/24/2020 11:56 Results for this AM CDT procedure are i n the results section. POC GLUCOSE Routine 05/24/2020 10:59 Results for this AM CDT procedure are i n the results section. XR CHEST 1 VW PORTABLE STAT 05/24/2020 10:10 R esults for this AM CDT procedure are i n the results section. POC GLUCOSE Routine 05/24/2020 9:54 Results for this AM CDT procedure are i n the results section. POC GLUCOSE Routine 05/24/2020 8:54 Results for this AM CDT procedure are i n the results section. ESTIMATED GFR Timed 05/24/2020 8:15 Results fo r this AM CDT procedure are i n the results section. SODIUM LEVEL Timed 05/24/2020 8:15 Results for this AM CDT procedure are i n the results section. PARTIAL THROMBOPLASTIN Timed 05/24/2020 8:15 R esults for this TIME (PTT) AM CDT procedure are i n the results section. POTASSIUM LEVEL Timed 05/24/2020 8:15 Results for this AM CDT procedure are i n the results section. PHOSPHORUS LEVEL Timed 05/24/2020 8:15 Results for this AM CDT procedure are i n the results section. MAGNESIUM LEVEL Timed 05/24/2020 8:15 Results for this AM CDT procedure are i n the results section. IONIZED CALCIUM Timed 05/24/2020 8:15 Results for this AM CDT procedure are i n the results section. CREATININE LEVEL Timed 05/24/2020 8:15 Results for this AM CDT procedure are i n the results section. BUN LEVEL Timed 05/24/2020 8:15 Results for this AM CDT procedure are i n the results section. POC GLUCOSE Routine 05/24/2020 8:10 Results for this AM CDT procedure are i n the results section. POC GLUCOSE Routine 05/24/2020 7:03 Results for this AM CDT procedure are i n the results section. POC GLUCOSE Routine 05/24/2020 5:54 Results for this AM CDT procedure are i n the results section. POC GLUCOSE Routine 05/24/2020 5:12 Results for this AM CDT procedure are i n the results section. POC GLUCOSE Routine 05/24/2020 3:54 Results for this AM CDT procedure are i n the results section. XR CHEST 1 VW PORTABLE Routine 05/24/2020 3:12 R esults for this AM CDT procedure are i n the results section. POC GLUCOSE Routine 05/24/2020 3:05 Results for this AM CDT procedure are i n the results section. POC GLUCOSE Routine 05/24/2020 1:56 Results for this AM CDT procedure are i n the results section. POC GLUCOSE Routine 05/24/2020 12:10 Results for this AM CDT procedure are i n the results section. ESTIMATED GFR Routine 05/24/2020 12:08 Results fo r this AM CDT procedure are i n the results section. TROPONIN Timed 05/24/2020 12:08 Results for this AM CDT procedure are i n the results section. VENOUS BLOOD GAS Routine 05/24/2020 12:08 Results for this AM CDT procedure are i n the results section. FIBRINOGEN Timed 05/24/2020 12:08 Results for this AM CDT procedure are i n the results section. PROTHROMBIN TIME WITH Timed 05/24/2020 12:08 Re sults for this INR AM CDT procedure are i n the results section. HEPATIC FUNCTION PANEL Routine 05/24/2020 12:08 R esults for this AM CDT procedure are i n the results section. IONIZED CALCIUM Routine 05/24/2020 12:08 Results for this AM CDT procedure are i n the results section. LACTIC ACID LEVEL Routine 05/24/2020 12:08 Result s for this AM CDT procedure are i n the results section. MAGNESIUM LEVEL Routine 05/24/2020 12:08 Results for this AM CDT procedure are i n the results section. PHOSPHORUS LEVEL Routine 05/24/2020 12:08 Results for this AM CDT procedure are i n the results section. HC COMPLETE BLD COUNT Routine 05/24/2020 12:08 Re sults for this W/AUTO DIFF AM CDT procedure are i n the results section. BASIC METABOLIC PANEL Routine 05/24/2020 12:08 Re sults for this AM CDT procedure are i n the results section. PARTIAL THROMBOPLASTIN Timed 05/24/2020 12:08 R esults for this TIME (PTT) AM CDT procedure are i n the results section. B NATRIURETIC PEPTIDE Routine 05/24/2020 12:08 Re sults for this AM CDT procedure are i n the results section. POC GLUCOSE Routine 05/23/2020 9:47 Results for this PM CDT procedure are i n the results section. POC GLUCOSE Routine 05/23/2020 7:51 Results for this PM CDT procedure are i n the results section. HC COMPLETE BLD COUNT STAT 05/23/2020 6:15 Re sults for this W/AUTO DIFF PM CDT procedure are i n the results section. FIBRINOGEN STAT 05/23/2020 6:15 Results for this PM CDT procedure are i n the results section. PROTHROMBIN TIME WITH STAT 05/23/2020 6:15 Re sults for this INR PM CDT procedure are i n the results section. TROPONIN Timed 05/23/2020 6:05 Results for this PM CDT procedure are i n the results section. LACTIC ACID LEVEL Timed 05/23/2020 6:05 Result s for this PM CDT procedure are i n the results section. POC GLUCOSE Routine 05/23/2020 5:56 Results for this PM CDT procedure are i n the results section. POC GLUCOSE Routine 05/23/2020 5:12 Results for this PM CDT procedure are i n the results section. ESTIMATED GFR Timed 05/23/2020 4:00 Results fo r this PM CDT procedure are i n the results section. SODIUM LEVEL Timed 05/23/2020 4:00 Results for this PM CDT procedure are i n the results section. PARTIAL THROMBOPLASTIN Timed 05/23/2020 4:00 R esults for this TIME (PTT) PM CDT procedure are i n the results section. POTASSIUM LEVEL Timed 05/23/2020 4:00 Results for this PM CDT procedure are i n the results section. PHOSPHORUS LEVEL Timed 05/23/2020 4:00 Results for this PM CDT procedure are i n the results section. MAGNESIUM LEVEL Timed 05/23/2020 4:00 Results for this PM CDT procedure are i n the results section. IONIZED CALCIUM Timed 05/23/2020 4:00 Results for this PM CDT procedure are i n the results section. CREATININE LEVEL Timed 05/23/2020 4:00 Results for this PM CDT procedure are i n the results section. BUN LEVEL Timed 05/23/2020 4:00 Results for this PM CDT procedure are i n the results section. POC GLUCOSE Routine 05/23/2020 3:56 Results for this PM CDT procedure are i n the results section. POC GLUCOSE Routine 05/23/2020 2:56 Results for this PM CDT procedure are i n the results section. POC GLUCOSE Routine 05/23/2020 1:59 Results for this PM CDT procedure are i n the results section. POC GLUCOSE Routine 05/23/2020 1:00 Results for this PM CDT procedure are i n the results section. ESTIMATED GFR Routine 05/23/2020 12:30 Results fo r this PM CDT procedure are i n the results section. BASIC METABOLIC PANEL Routine 05/23/2020 12:30 Re sults for this PM CDT procedure are i n the results section. POC GLUCOSE Routine 05/23/2020 12:01 Results for this PM CDT procedure are i n the results section. TROPONIN Timed 05/23/2020 12:00 Results for this PM CDT procedure are i n the results section. LACTIC ACID LEVEL Timed 05/23/2020 12:00 Result s for this PM CDT procedure are i n the results section. POC GLUCOSE Routine 05/23/2020 11:01 Results for this AM CDT procedure are i n the results section. US HEPATIC Today 05/23/2020 10:50 Results for this AM CDT procedure are i n the results section. US RENAL STAT 05/23/2020 10:28 Results for this AM CDT procedure are i n the results section. POC GLUCOSE Routine 05/23/2020 10:12 Results for this AM CDT procedure are i n the results section. XR CHEST 1 VW PORTABLE Routine 05/23/2020 10:10 R esults for this AM CDT procedure are i n the results section. POC GLUCOSE Routine 05/23/2020 9:21 Results for this AM CDT procedure are i n the results section. ECG 12-LEAD Routine 05/23/2020 9:15 Results for this AM CDT procedure are i n the results section. URINE CULTURE Routine 05/23/2020 8:24 Results fo r this AM CDT procedure are i n the results section. POC GLUCOSE Routine 05/23/2020 8:14 Results for this AM CDT procedure are i n the results section. URINALYSIS SCREEN AND Routine 05/23/2020 8:00 Re sults for this MICROSCOPY, WITH AM CDT procedure a re in REFLEX TO CULTURE the result s section. TROPONIN Timed 05/23/2020 7:20 Results for this AM CDT procedure are i n the results section. LACTIC ACID LEVEL Timed 05/23/2020 7:20 Result s for this AM CDT procedure are i n the results section. IONIZED CALCIUM STAT 05/23/2020 7:15 Results for this AM CDT procedure are i n the results section. POC GLUCOSE Routine 05/23/2020 7:14 Results for this AM CDT procedure are i n the results section. POC GLUCOSE Routine 05/23/2020 4:11 Results for this AM CDT procedure are i n the results section. POC GLUCOSE Routine 05/23/2020 12:22 Results for this AM CDT procedure are i n the results section. ESTIMATED GFR Routine 05/23/2020 12:10 Results fo r this AM CDT procedure are i n the results section. LACTIC ACID LEVEL Timed 05/23/2020 12:10 Result s for this AM CDT procedure are i n the results section. HEPATIC FUNCTION PANEL Timed 05/23/2020 12:10 R esults for this AM CDT procedure are i n the results section. B NATRIURETIC PEPTIDE Routine 05/23/2020 12:10 Re sults for this AM CDT procedure are i n the results section. FIBRINOGEN Timed 05/23/2020 12:10 Results for this AM CDT procedure are i n the results section. PROTHROMBIN TIME WITH Timed 05/23/2020 12:10 Re sults for this INR AM CDT procedure are i n the results section. PARTIAL THROMBOPLASTIN Timed 05/23/2020 12:10 R esults for this TIME (PTT) AM CDT procedure are i n the results section. VENOUS BLOOD GAS Routine 05/23/2020 12:10 Results for this AM CDT procedure are i n the results section. PHOSPHORUS LEVEL Routine 05/23/2020 12:10 Results for this AM CDT procedure are i n the results section. MAGNESIUM LEVEL Routine 05/23/2020 12:10 Results for this AM CDT procedure are i n the results section. IONIZED CALCIUM Routine 05/23/2020 12:10 Results for this AM CDT procedure are i n the results section. VANCOMYCIN LEVEL, Routine 05/23/2020 12:10 Result s for this RANDOM AM CDT procedure are i n the results section. TROPONIN Timed 05/23/2020 12:10 Results for this AM CDT procedure are i n the results section. BASIC METABOLIC PANEL Routine 05/23/2020 12:10 Re sults for this AM CDT procedure are i n the results section. CBC WITH PLATELET AND Routine 05/23/2020 12:10 Re sults for this DIFFERENTIAL AM CDT procedure are i n the results section. POC GLUCOSE Routine 05/22/2020 8:53 Results for this PM CDT procedure are i n the results section. LACTIC ACID LEVEL Routine 05/22/2020 8:10 Result s for this PM CDT procedure are i n the results section. ESTIMATED GFR Routine 05/22/2020 8:10 Results fo r this PM CDT procedure are i n the results section. BASIC METABOLIC PANEL Routine 05/22/2020 8:10 Re sults for this PM CDT procedure are i n the results section. FIBRINOGEN STAT 05/22/2020 8:10 Results for this PM CDT procedure are i n the results section. HEPATITIS ACUTE PANEL Routine 05/22/2020 7:45 Re sults for this PM CDT procedure are i n the results section. IONIZED CALCIUM STAT 05/22/2020 6:05 Results for this PM CDT procedure are i n the results section. ARTERIAL BLOOD GAS Timed 05/22/2020 6:00 Resul ts for this PM CDT procedure are i n the results section. ECG 12-LEAD Routine 05/22/2020 5:56 Results for this PM CDT procedure are i n the results section. PROTHROMBIN TIME WITH Routine 05/22/2020 5:40 Re sults for this INR PM CDT procedure are i n the results section. PARTIAL THROMBOPLASTIN Routine 05/22/2020 5:40 R esults for this TIME (PTT) PM CDT procedure are i n the results section. ESTIMATED GFR Routine 05/22/2020 5:18 Results fo r this PM CDT procedure are i n the results section. TROPONIN Routine 05/22/2020 5:18 Results for this PM CDT procedure are i n the results section. LACTIC ACID LEVEL Routine 05/22/2020 5:18 Result s for this PM CDT procedure are i n the results section. HEPATIC FUNCTION PANEL Routine 05/22/2020 5:18 R esults for this PM CDT procedure are i n the results section. BASIC METABOLIC PANEL Routine 05/22/2020 5:18 Re sults for this PM CDT procedure are i n the results section. POC GLUCOSE Routine 05/22/2020 4:58 Results for this PM CDT procedure are i n the results section. PARTIAL THROMBOPLASTIN Routine 05/22/2020 4:15 R esults for this TIME (PTT) PM CDT procedure are i n the results section. PROTHROMBIN TIME WITH Routine 05/22/2020 4:15 Re sults for this INR PM CDT procedure are i n the results section. BLOOD CULTURE, AEROBIC Routine 05/22/2020 4:05 R esults for this & ANAEROBIC PM CDT procedure are i n the results section. POC GLUCOSE Routine 05/22/2020 4:00 Results for this PM CDT procedure are i n the results section. ESTIMATED GFR Timed 05/22/2020 4:00 Results fo r this PM CDT procedure are i n the results section. BASIC METABOLIC PANEL Timed 05/22/2020 4:00 Re sults for this PM CDT procedure are i n the results section. BLOOD CULTURE, AEROBIC Routine 05/22/2020 3:55 R esults for this & ANAEROBIC PM CDT procedure are i n the results section. ECG 12-LEAD Routine 05/22/2020 12:51 Results for this PM CDT procedure are i n the results section. POC GLUCOSE Routine 05/22/2020 12:17 Results for this PM CDT procedure are i n the results section. ARTERIAL BLOOD GAS Timed 05/22/2020 12:10 Resul ts for this PM CDT procedure are i n the results section. LACTIC ACID LEVEL Timed 05/22/2020 12:00 Result s for this PM CDT procedure are i n the results section. TROPONIN Timed 05/22/2020 12:00 Results for this PM CDT procedure are i n the results section. ECG 12-LEAD Routine 05/22/2020 8:34 Results for this AM CDT procedure are i n the results section. ECG 12-LEAD Routine 05/22/2020 8:29 Results for this AM CDT procedure are i n the results section. ESTIMATED GFR STAT 05/22/2020 8:05 Results fo r this AM CDT procedure are i n the results section. MAGNESIUM LEVEL STAT 05/22/2020 8:05 Results for this AM CDT procedure are i n the results section. IONIZED CALCIUM STAT 05/22/2020 8:05 Results for this AM CDT procedure are i n the results section. BASIC METABOLIC PANEL STAT 05/22/2020 8:05 Re sults for this AM CDT procedure are i n the results section. HC COMPLETE BLD COUNT STAT 05/22/2020 8:05 Re sults for this W/AUTO DIFF AM CDT procedure are i n the results section. FIBRINOGEN STAT 05/22/2020 8:05 Results for this AM CDT procedure are i n the results section. PARTIAL THROMBOPLASTIN STAT 05/22/2020 8:05 R esults for this TIME (PTT) AM CDT procedure are i n the results section. PROTHROMBIN TIME WITH STAT 05/22/2020 8:05 Re sults for this INR AM CDT procedure are i n the results section. B NATRIURETIC PEPTIDE Routine 05/22/2020 8:05 Re sults for this AM CDT procedure are i n the results section. TROPONIN STAT 05/22/2020 8:05 Results for this AM CDT procedure are i n the results section. LACTIC ACID LEVEL STAT 05/22/2020 8:05 Result s for this AM CDT procedure are i n the results section. HC COMPLETE BLD COUNT STAT 05/22/2020 8:05 Re sults for this W/AUTO DIFF AM CDT procedure are i n the results section. POC GLUCOSE Routine 05/22/2020 7:52 Results for this AM CDT procedure are i n the results section. ARTERIAL BLOOD GAS Timed 05/22/2020 7:26 Resul ts for this AM CDT procedure are i n the results section. TROPONIN Timed 05/22/2020 6:00 Results for this AM CDT procedure are i n the results section. LACTIC ACID LEVEL Timed 05/22/2020 6:00 Result s for this AM CDT procedure are i n the results section. NC INSERT Routine 05/22/2020 5:27 Paroxysmal atrial Result s for this CATH,ART,PERCUT,TYRELL AM CDT fibrillat ion (HCC) procedure are in ERM Cardiogenic shock the result s (HCC) section. VENOUS BLOOD GAS Routine 05/22/2020 5:00 Results for this AM CDT procedure are i n the results section. POC GLUCOSE Routine 05/22/2020 4:10 Results for this AM CDT procedure are i n the results section. ARTERIAL BLOOD GAS Routine 05/22/2020 3:36 Resul ts for this AM CDT procedure are i n the results section. ARTERIAL BLOOD GAS STAT 05/22/2020 2:25 Resul ts for this AM CDT procedure are i n the results section. TTE COMPLETE, W STAT 05/22/2020 2:15 Results for this CONTRAST, W DOPPLER AM CDT procedur e are in ([id number]) the results section. XR CHEST 1 VW PORTABLE STAT 05/21/2020 11:40 R esults for this PM CDT procedure are i n the results section. HC CVL NON-TUNNELED Routine 05/21/2020 11:30 Paroxysmal atrial Results for this INSERT 5YRS OR > PM CDT fibrillation (H CC) procedure are in Cardiogenic shock the result s (HCC) section. NC INSERT NON-TUNNEL Routine 05/21/2020 11:30 Paroxysmal atria l Results for this CV CATH PM CDT fibrillation (HC C) procedure are in Cardiogenic shock the result s (HCC) section. B NATRIURETIC PEPTIDE STAT 05/21/2020 11:22 Re sults for this PM CDT procedure are i n the results section. TROPONIN Timed 05/21/2020 11:22 Results for this PM CDT procedure are i n the results section. PROTHROMBIN TIME WITH STAT 05/21/2020 11:22 Re sults for this INR PM CDT procedure are i n the results section. PARTIAL THROMBOPLASTIN STAT 05/21/2020 11:22 R esults for this TIME (PTT) PM CDT procedure are i n the results section. FIBRINOGEN STAT 05/21/2020 11:22 Results for this PM CDT procedure are i n the results section. HC COMPLETE BLD COUNT STAT 05/21/2020 11:22 Re sults for this W/AUTO DIFF PM CDT procedure are i n the results section. ESTIMATED GFR STAT 05/21/2020 11:07 Results fo r this PM CDT procedure are i n the results section. PHOSPHORUS LEVEL STAT 05/21/2020 11:07 Results for this PM CDT procedure are i n the results section. MAGNESIUM LEVEL STAT 05/21/2020 11:07 Results for this PM CDT procedure are i n the results section. LACTIC ACID LEVEL STAT 05/21/2020 11:07 Result s for this PM CDT procedure are i n the results section. IONIZED CALCIUM STAT 05/21/2020 11:07 Results for this PM CDT procedure are i n the results section. COMPREHENSIVE STAT 05/21/2020 11:07 Results fo r this METABOLIC PANEL PM CDT procedure ar e in the results section. POC GLUCOSE Routine 05/21/2020 10:55 Results for this PM CDT procedure are i n the results section. ARTERIAL BLOOD GAS STAT 05/21/2020 10:00 Resul ts for this PM CDT procedure are i n the results section. SMEAR REVIEW STAT 05/21/2020 9:53 Results for this PM CDT procedure are i n the results section. TROPONIN STAT 05/21/2020 9:53 Results for this PM CDT procedure are i n the results section. IONIZED CALCIUM STAT 05/21/2020 9:53 Results for this PM CDT procedure are i n the results section. LACTIC ACID LEVEL STAT 05/21/2020 9:53 Result s for this PM CDT procedure are i n the results section. PHOSPHORUS LEVEL STAT 05/21/2020 9:53 Results for this PM CDT procedure are i n the results section. MAGNESIUM LEVEL STAT 05/21/2020 9:53 Results for this PM CDT procedure are i n the results section. COMPREHENSIVE STAT 05/21/2020 9:53 Results fo r this METABOLIC PANEL PM CDT procedure ar e in the results section. HC COMPLETE BLD COUNT STAT 05/21/2020 9:53 Re sults for this W/AUTO DIFF PM CDT procedure are i n the results section. PREPARE FRESH FROZEN Routine 05/21/2020 9:50 Res ults for this PLASMA PM CDT procedure are i n the results section. PREPARE RBC Routine 05/21/2020 9:50 Results for this PM CDT procedure are i n the results section. TYPE AND SCREEN Routine 05/21/2020 9:50 Results for this PM CDT procedure are i n the results section. PARTIAL THROMBOPLASTIN Routine 05/21/2020 9:50 R esults for this TIME (PTT) PM CDT procedure are i n the results section. PROTHROMBIN TIME WITH Routine 05/21/2020 9:50 Re sults for this INR PM CDT procedure are i n the results section. ECG 12-LEAD STAT 05/21/2020 9:35 Results for this PM CDT procedure are i n the results section. POC GLUCOSE Routine 05/21/2020 9:32 Results for this PM CDT procedure are i n the results section. POC GLUCOSE Routine 05/21/2020 7:49 Results for this PM CDT procedure are i n the results section. POC GLUCOSE Routine 05/21/2020 5:29 Results for this PM CDT procedure are i n the results section. POC GLUCOSE Routine 05/21/2020 10:27 Results for this AM CDT procedure are i n the results section. POC GLUCOSE Routine 05/21/2020 7:59 Results for this AM CDT procedure are i n the results section. ESTIMATED GFR Routine 05/21/2020 6:35 Results fo r this AM CDT procedure are i n the results section. TROPONIN Routine 05/21/2020 6:35 Results for this AM CDT procedure are i n the results section. T4, FREE Routine 05/21/2020 6:35 Results for this AM CDT procedure are i n the results section. THYROID STIMULATING Routine 05/21/2020 6:35 Resu lts for this HORMONE AM CDT procedure are i n the results section. LIPID PANEL Routine 05/21/2020 6:35 Results for this AM CDT procedure are i n the results section. BASIC METABOLIC PANEL Routine 05/21/2020 6:35 Re sults for this AM CDT procedure are i n the results section. HC COMPLETE BLD COUNT Routine 05/21/2020 6:35 Re sults for this W/AUTO DIFF AM CDT procedure are i n the results section. POC GLUCOSE Routine 05/21/2020 5:44 Results for this AM CDT procedure are i n the results section. POC GLUCOSE Routine 05/21/2020 5:13 Results for this AM CDT procedure are i n the results section. after 07/18/2019 Results Troponin (06/06/2020 1:00 PM CDT)Only the most recent of14 resultswithin the time period is included. Troponin 0.134 (H) 0.000 - 0.040 [facility] Comment: ng/mL HOSPITAL In patients suspected of having a myocardial infarctio n, along with all other appropriate clinical measures and actions includ ing ECG and other diagnostics as appropriate, measure Ultra TnI at 0 hrs and at 3 hrs. Myocardial infarction VERY LIKELY The 0 hr TnI level is > 0.10 ng/mL Myocardial infarction LIKELY The 0 hr TnI level is > 0.04 ng/mL and 3 hr level is i ncreased or decreased by at least 0.020 ng/mL Myocardial infarction VERY UNLIKELY Both the 0 hr and 3 hr TnI levels <= 0.04 ng/mL(within normal limits) OR 0 hr is > 0.04 ng/mL and 3 hr is increased OR decreased by less than 0.020 ng/mL Specimen Blood Performing Organization Address City/State/[facility] Code Phon e Number [facility] DEPARTMENT OF PATHOLOGY AND [address] [place] [phone] GENOM[address] [address] POC glucose (06/06/2020 11:36 AM CDT)Only the most recent of129 resultswithin the time period is included. Pathologist Sig nature POC glucose 213 (H) 65 - 99 mg/dL [facility] Comment: HOSPITAL Synchronous Motor Assembler Name: Brennon Lynn Device ID: [id number] Chartable: [facility] Notified RN Specimen Blood Performing Organization Address City/State/[facility] Phon e Number [facility] DEPARTMENT OF PATHOLOGY AND [address], [place] [address] [facility] [address] [place] [id number] Estimated GFR (06/05/2020 4:00 AM CDT)Only the most recent of23 resultswithin the time period is included. Pathologist [facility] Estimated GFR 27 (A) mL/min/1.73 [facility] Comment: m2 HOSPITAL Catergory Units Interpretation G1 >=90 Normal [...] lity Initiative ([id number]) published in 2014. Specimen Performing Organization Address City/[facility] Code Phon e Number [facility] DEPARTMENT OF PATHOLOGY AND [address] [place] [address] [phone] [address] CBC with platelet and differential (06/05/2020 4:00 AM CDT)Only the most recent of14 resultswithin the time period is included. Pathologist [facility] WBC 8.46 4.50 - 11.00 [facility] k/uL [facility] RBC 3.92 (L) 4.20 - 5.50 [facility] HGB 10.5 (L) 12.0 - 16.0 [facility] g/dL [facility] HCT 32.6 (L) 37.0 - 47.0 % [facility] [place] MCV 83.2 82.0 - 100.0 [facility] MCH 26.8 (L) 27.0 - 34.[address] [facility] [place] MCHC 32.2 31.0 - 37.0 [facility] RDW - SD 50.7 37.0 - 55.[address] [facility] [place] MPV 11.5 8.8 - 13.2 [facility] Platelet count 299 150 - 400 k/uL [facility] [place] Nucleated RBC 0.00 /[address] [facility] [place] Neutrophils 76.2 (H) 39.0 - 69.0 % [facility] [place] Lymphocytes 10.2 (L) 25.0 - 45.0 % [facility] [place] Monocytes 8.4 0.0 - 10.0 % [facility] [place] Eosinophils 3.8 0.0 - 5.0 % [facility] [place] Basophils 0.8 0.0 - 1.0 % [facility] [place] Immature granulocytes 0.6Comment: 0.0 - 1.0 % [facility] "Immature HOSPITAL granulocytes" (promyelocytes , myelocytes, metamyelocytes ) Specimen Blood Performing Organization Address City/[facility] Phon e Number [facility] DEPARTMENT OF PATHOLOGY AND [address] [place] [phone] Phosphorus level (06/05/2020 4:00 AM CDT)Only the most recent of16 results within the time period is included. Pathologist Sig nature Phosphorus 2.9 2.4 - 4.5 mg/dL [facility] L Specimen Blood Performing Organization Address City/[facility] Phon e Number [facility] DEPARTMENT OF PATHOLOGY AND [address] [place], [place] [address] [address] [address] Magnesium level (06/05/2020 4:00 AM CDT)Only the most recent of19 resultswithin the time period is included. Pathologist Sig nature Magnesium 1.9 1.6 - 2.4 mg/dL [facility] L Specimen Blood Performing Organization Address [facility] Phon e Number [facility] DEPARTMENT OF PATHOLOGY AND [address] [place], [place] [address] [address] [address] Comprehensive metabolic panel (06/05/2020 4:00 AM CDT)Only the most recent of3 resultswithin the time period is included. Sodium 140 135 - 148 [facility] mEq/L [facility] Potassium 4.2 3.5 - 5.0 [facility] mEq/L [facility] Chloride 93 (L) 98 - 112 [facility] mEq/L [facility] CO2 30 24 - 31 mEq/L [facility] Anion gap 17@ANIO (H) 7 - 15 mEq/L [facility] BUN 77 (H) 8 - 23 mg/dL [facility] Creatinine 1.74 (H) 0.50 - 0.90 [facility] mg/dL HOSPITAL Glucose 88 65 - 99 mg/dL [facility] [place] Calcium 10.0 8.8 - 10.2 [facility] mg/dL [facility] Protein 7.4 6.3 - 8.3 [facility] Comment: g/dL HOSPITAL - 4.6-7.0 g/dL 1 week 4.4-7.6 g/dL 7 months-1year 5.1-7.3 g/dL 1-2 years 5.6-7.5 g/dL >3 years 6.0-8.0 g/dL 18-150 6.3-8.3 g/dL Albumin 4.4 3.5 - 5.0 [facility] g/dL [facility] A/G ratio 1.5 0.7 - 3.[address] [facility] [place] Alkaline phosphatase 98 35 - 104 U/L [facility] AST 47 (H) 10 - 35 U/L [facility] ALT 62 (H) 5 - 50 U/L [facility] [place] Total bilirubin 1.3 (H) 0.0 - 1.2 [facility] mg/dL [facility] Specimen Performing Organization Address [facility] Phon e Number [facility] DEPARTMENT OF PATHOLOGY AND [address] [place] [phone] [facility] MED[address]INE [address] [address] Basic metabolic panel (06/04/2020 5:00 AM CDT)Only the most recent of19 results within the time period is included. Pathologist Sig nature Sodium 135 135 - 148 mEq/L [facility] [place] Potassium 4.6 3.5 - 5.0 mEq/L [facility] [place] Chloride 90 (L) 98 - 112 mEq/L [facility] CO2 26 24 - 31 mEq/L [facility] Anion gap 19@ANIO (H) 7 - 15 mEq/L [facility] BUN 84 (H) 8 - 23 mg/dL [facility] Creatinine 1.68 (H) 0.50 - 0.90 mg/dL [facility] Glucose 96 65 - 99 mg/dL [facility] Calcium 9.6 8.8 - 10.2 mg/dL [facility] Specimen Blood Performing Organization Address City/[facility]/ZIP Code Phon e Number [facility] DEPARTMENT OF PATHOLOGY AND [address] [place] [address] [phone] [address] Digoxin level (06/03/2020 4:00 AM CDT)Only the most recent of5 resultswithin the time period is included. Digoxin 1.0 0.8 - 2.0 ng/mL [facility] Comment: HOSPITAL For valid Digoxin results, at least 6 hours should anthony pse between time of last dose and collection of blood. Otherwise, result may be false high. Therapeutic Range: 0.8 - 2.0 ng/mL Specimen Blood Performing Organization Address [facility] Phon e Number [facility] DEPARTMENT OF PATHOLOGY AND [address] [place] [address] [address] Hepatic function panel (06/03/2020 4:00 AM CDT)Only the most recent of12 resultswithin the time period is included. Albumin 3.9 3.5 - 5.0 [facility] g/dL [facility] Total bilirubin 1.3 (H) 0.0 - 1.2 [facility] mg/dL HOSPITAL Bilirubin direct 0.7 (H) 0.0 - 0.3 [facility] mg/dL [facility] Alkaline phosphatase 81 35 - 104 U/L [facility] [place] Protein 6.5 6.3 - 8.3 [facility] Comment: g/dL HOSPITAL - [place] 4.6-7.0 g/dL 1 week 4.4-7.6 g/dL 7 months-1year 5.1-7.3 g/dL 1-2 years 5.6-7.5 g/dL >3 years 6.0-8.0 g/dL 18-150 6.3-8.3 g/dL ALT 68 (H) 5 - 50 U/L [facility] AST 57 (H) 10 - 35 U/L [facility] Specimen Blood Performing Organization Address City/[facility] Phon e Number [facility] DEPARTMENT OF PATHOLOGY AND [address] [place] [address] [phone] [address] Partial thromboplastin time, activated (06/02/2020 4:40 AM CDT)Only the most recent of26 resultswithin the time period is included. PTT 30.7 23.0 - 36.0 [facility] Comment: [facility] HOSPITAL PTT therapeutic range for unfractionated heparin is 61.0-112.0 seconds which corresponds to Anti-Xa 0.3-0.7 U/ml. Specimen Blood Performing Organization Address City/[facility] Phon e Number [facility] DEPARTMENT OF PATHOLOGY AND [address] [place] [address] [address] Urinalysis screen and microscopy, with reflex to culture (06/02/2020 2:00 AM CDT)Only the most recent of2 resultswithin the time period is included. Pathologist [facility] Specimen site Random void [facility] Color, UA Straw [facility] Appearance, UA Clear [facility] Specific gravity, UA 1.008 1.001 - 1.[address] [facility] pH, UA 5.0 5.0 - 8.[address] [facility] Protein, UA 1+ (A) Negative [facility] Glucose, UA Negative Negative [facility] Ketones, UA Negative Negative [facility] Bilirubin, UA Negative Negative [facility] Blood, UA Negative Negative [facility] Nitrite, UA Negative Negative [facility] Urobilinogen, UA <2.0 <2.[address] [facility] Leukocyte esterase, Negative Negative [facility] Epithelial cells, UA <1 /HPF [facility] [place] Round epithelial <1 0 - 1 /HPF [facility] cells, HOSPITAL WBC, UA 1 0 - 4 /HPF [facility] RBC, UA None seen 0 - 5 /HPF [facility] Bacteria, UA None seen None seen [facility] Yeast, UA Few (A) [facility] Yeast with None seen [facility] pseudohyphae, HOSPITAL Specimen Urine Performing Organization Address City/[facility] Phon e Number [facility] DEPARTMENT OF PATHOLOGY AND [address] [place] [address] [phone] [address] Urine culture (06/02/2020 2:00 AM CDT)Only the most recent of2 resultswithin the time period is included. Pathologist Sig nature Urine culture SEE COMMENTComment: [facility] Bacteriuria screen HOSPITAL negative. Specimen Performing Organization Address City/[facility] Phon e Number [facility] DEPARTMENT OF PATHOLOGY AND [address] [place] [address] COVID-19 qualitative PCR (06/01/2020 7:48 PM CDT) Pathologist [facility] Interpretation Negative results do not prec lude 2019-nCoV infection and should not be used as the sole basis for treatment or other patient management decisions. Negative results must be combined with clinical observations, patient history, and epidemiological [place] information. [facility] COVID-19 qualitative Not-Detected Not-Detecte [place] PCR result d [facility] COVID19 qualitative See link below for [place] PCR PDF Lab DENOMINATIONAL ReportComment: Case HOSPITAL Number: [id number] Specimen Nasopharyngeal swab Performing Organization Address [facility] Phon e Number [facility] DEPARTMENT OF PATHOLOGY AND [address] [place] [address] B natriuretic peptide (05/31/2020 12:45 AM CDT)Only the most recent of11 results within the time period is included. [facility] BNP >5000 (H) 0 - 100 pg/mL [facility] Comment: HOSPITAL Increased result of BNP most likely represents recent infusion of recombinant BNP. For monitoring, because of the brandin rt half-life of BNP (20 minutes), measurements taken 2 ho urs after cessation of treatment again reflects the level of end ogenous BNP. Specimen Blood Performing Organization Address [facility] Phon e Number [facility] DEPARTMENT OF PATHOLOGY AND [address] [place] [address] Anti Xa, unfractionated (05/28/2020 3:20 PM CDT) [facility] Anti Xa, Footnote 0.30 - 0.70 [place] unfractionated Comment: U/mL DENOMINATIONAL Therapeutic Range: 0.30 - 0.70 U/mL HOS PITAL Unable to perform testing, specimen is QNS_. Recolle ct requested for LYNN (tests). Dolly Simon/Lissy (nam e/location) notified by Mathieu (tech ID) at 17:00 05/28/2020 (date/time ). Credit issued. Specimen Blood Performing Organization Address [facility]/ZIP Code Phon e Number [facility] DEPARTMENT OF PATHOLOGY AND [address] [place] [address] [phone] [address] ECG 12 lead (05/28/2020 4:02 AM CDT)Only the most recent of8 resultswithin the time period is included. Pathologist Sig nature Ventricular rate 90 [facility] Atrial rate 68 [facility] QRSD interval 108 [facility] QT interval 390 [facility] QTC interval 477 [facility] QRS axis 1 23 [facility] T wave axis 96 [facility] EKG impression Atrial fibrillation with pre mature ventricular or aberrantly conducted complexes-Anteroseptal infarct (cited on or before 28-MAY-2020)-Abnormal ECG-In automated comparison with ECG of 25-MAY-2020 09:2 2,-No significant change was found-Electronically [facility] MUSE Signed By Ramin Hill MD ([id number]) on 05/28/2020 10:25:35 PM Specimen Narrative Performed At This result has an attachment that is no t available. Performing Organization Address [facility] Phon e Number [facility] MUSE [address] [place] [phone] Ionized calcium (05/28/2020 4:00 AM CDT)Only the most recent of13 resultswithin the time period is included. Pathologist Sig nature pH 7.[address] [facility] [place] Ionized calcium 1.02 (L) 1.11 - 1.32 [facility] mmol/L HOSPITAL Specimen Blood Performing Organization Address City/State/ZIP Code Phon e Number [facility] DEPARTMENT OF PATHOLOGY AND [address] [place] [address] [phone] [address] Prothrombin time with INR (05/27/2020 12:18 AM CDT)Only the most recent of12 resultswithin the time period is included. Prothrombin time 20.3 (H) 11.5 - 14.5 [facility] INR 1.7 [place] Comment: [facility] International Normalized Ratio (INR) is a therapeu [facility] HOSPITAL monitoring tool for patients who are stable on oral anticoagulant therapy. An INR of 2.0-3.0 is suggested for deep vein thrombosis/pulmonary embolism. Specimen Blood Performing Organization Address City/State/ZIP Code Phon e Number [facility] DEPARTMENT OF PATHOLOGY AND [address], [place] [address] [address] [facility] [place] [address] [place] [address] XR Chest 1 Vw Portable (05/26/2020 6:05 AM CDT)Only the most recent of6 results within the time period is included. Specimen Narrative Performed At EXAMINATION: XR CHEST 1 VW PORTABLE RADIANT CLINICAL HISTORY: 79 years Female ICU pt unstable or clinical worsening COMPARISON: May 25, 2020 IMPRESSION: Lines and tubes: A single lead AICD is s een in stable position. Heart and mediastinum: Cardiomediastinal silhouette co ntour is enlarged and stable. There are calcifications of the vessels. Lungs and pleura: There are no new areas of focal cons olidation. Lung airspaces appear stable from prior examination althoug h volume status may be increased from prior. Likely small bilateral pl eural effusions. There is no evidence of pneumothorax. Bones: No acute abnormality. Median sternotomy wires a ppear stable without evidence of fracture or migratio n. [id number] Dictated and approved by hvac technician residential/fellow: Yoon Turcios M.D. I, Connor Alarcon MD, personally reviewed the images and resident's/fellow's findings and agree with the final report. Procedure Note Interface, Radiology Results Incoming - 05/26/2020 10:56 AM CDT EXAMINATION: XR CHEST 1 VW PORTABLE CLINICAL HISTORY: 79 years Female ICU pt unstable or clinical worsening COMPARISON: May 25, 2020 IMPRESSION: Lines and tubes: A single lead AICD is s een in stable position. Heart and mediastinum: Cardiomediastinal silhouette contour is enlarged and stable. There are calcifications of the vessels. Lungs and pleura: There are no new areas of focal consolidation. Lung airspaces appear stable from prior examination although volume status may be increased from prior. Likely small bilateral pleural effusions. There is no evidence of pneumothorax. Bones: No acute abnormality. Median ster notomy wires appear stable without evidence of fracture or migration. [id number] Dictated and approved by radiology resid ent/fellow: Hernan Turcios M.D. I, Connor Alarcon MD, personally reviewed the images and resident's/fellow's findings and agree with the final report. Performing Organization Address City/[facility]/ZIP Code Phon e Number [address] [address] Ionized calcium, arterial (05/26/2020 12:32 AM CDT) Pathologist Sig nature Ionized calcium, 1.10 (L) 1.11 - 1.32 [facility] arterial mmol/L HOSPITAL Specimen Blood Performing Organization Address City/[facility] Phon e Number [facility] DEPARTMENT OF PATHOLOGY AND [address] [place] [address] [phone] [address] Hemoglobin A1c (05/26/2020 12:32 AM CDT) Hemoglobin A1C 10.7 (H) 4.0 - 5.6 % [facility] Comment: HOSPITAL HbA1c cutoffs for diagnosing diabetes: 4.0% - 5.6% = normal 5.7% - 6.4% = increased risk for diabetes (prediabetes )9 >=6.5% = diabetes9 Goals for glycemic control (ADA 2016) < 7.0% Target for non adults with diabetes. More or less stringent targets may be appropriate for individual patients. <7.5% Target for Children and adolescents with type 1 diabetes. Specimen Blood Performing Organization Address [facility] Phon e Number [facility] DEPARTMENT OF PATHOLOGY AND [address] [place] [address] [address] Arterial blood gas (05/26/2020 12:32 AM CDT)Only the most recent of8 results within the time period is included. Pathologist Sig nature pH, arterial 7.46 (H) 7.35 - 7.[address] [facility] pCO2, arterial 41 35 - [address] [facility] pO2, arterial 82 80 - [address] [facility] Bicarbonate, 28.1 (H) 21.0 - 28.0 [facility] arterial mmol/L HOSPITAL Base excess, 4 (H) -2 - 2 mEq/L [facility] O2 saturation, 98 95 - 100 % [facility] Specimen Blood Performing Organization Address [facility] Phon e Number [facility] DEPARTMENT OF PATHOLOGY AND [address] [place] [address] [phone] [address] GGT (05/25/2020 12:00 AM CDT) Pathologist Sig nature GGT 76 (H) 0 - 39 U/L [facility] Specimen Blood Performing Organization Address [facility] Phon e Number [facility] DEPARTMENT OF PATHOLOGY AND [address] [place] [address] [phone] [address] Venous blood gas (05/25/2020 12:00 AM CDT)Only the most recent of4 resultswithin the time period is included. Pathologist Sig nature pH, venous 7.40 7.32 - 7.[address] [facility] pCO2, venous 45 45 - [address] [facility] pO2, venous 39 25 - [address] [facility] Base excess, venous 3 (H) -2 - 2 meq/L [facility] O2 saturation, 71 (H) 40 - 70 % [facility] Bicarbonate, venous 27.4 21.0 - 28.0 [facility] mmol/L HOSPITAL Specimen Blood Performing Organization Address [facility] Phon e Number [facility] DEPARTMENT OF PATHOLOGY AND [address] [place] [address] [address] Vancomycin level, random (05/25/2020 12:00 AM CDT)Only the most recent of2 resultswithin the time period is included. Pathologist Sig nature Vancomycin, random 16.0 ug/mL [facility] ITAL Specimen Serum Performing Organization Address City/[facility] Phon e Number [facility] DEPARTMENT OF PATHOLOGY AND [address] [place] [address] [phone] [address] Sodium level (05/24/2020 4:45 PM CDT)Only the most recent of3 resultswithin the time period is included. Pathologist Sig nature Sodium 131 (L) 135 - 148 mEq/L [facility] L Specimen Blood Performing Organization Address [facility]/ZIP Code Phon e Number [facility] DEPARTMENT OF PATHOLOGY AND [address] [place] [address] [phone] [address] BUN level (05/24/2020 8:15 AM CDT)Only the most recent of2 resultswithin the time period is included. Pathologist Sig nature BUN 47 (H) 8 - 23 mg/dL [facility] Specimen Blood Performing Organization Address City/[facility] Phon e Number [facility] DEPARTMENT OF PATHOLOGY AND [address] [place] [phone] Potassium level (05/24/2020 8:15 AM CDT)Only the most recent of2 resultswithin the time period is included. Pathologist Sig nature Potassium 3.3 (L) 3.5 - 5.0 mEq/L [facility] Specimen Blood Performing Organization Address City/[facility] Phon e Number [facility] DEPARTMENT OF PATHOLOGY AND [address] [place] [phone] Creatinine level (05/24/2020 8:15 AM CDT)Only the most recent of2 resultswithin the time period is included. Pathologist Sig nature Creatinine 3.25 (H) 0.50 - 0.90 mg/dL [facility] Specimen Blood Performing Organization Address City/[facility] Phon e Number [facility] DEPARTMENT OF PATHOLOGY AND [address] [place] [address] Fibrinogen (05/24/2020 12:08 AM CDT)Only the most recent of6 resultswithin the time period is included. Pathologist Sig nature Fibrinogen 265 200 - 450 mg/dL [facility] Specimen Blood Performing Organization Address City/[facility] Phon e Number [facility] DEPARTMENT OF PATHOLOGY AND [address] [place] [address] [address] Lactic acid level (05/24/2020 12:08 AM CDT)Only the most recent of12 results within the time period is included. Pathologist Sig nature Lactic acid 2.0 0.5 - 2.2 mmol/L [facility] [place] Specimen Blood Performing Organization Address City/[facility]/ZIP Code Phon e Number [facility] DEPARTMENT OF PATHOLOGY AND [address] [place], [place] [address] [address] [facility] [place] [address] [place] [address] [place] Hepatic (05/23/2020 10:50 AM CDT) Specimen Narrative Performed At Examination: US HEPATIC [facility] Clinical history: Shock liver and abn bi li Comparison: None Impression: Transverse and longitudinal sonographic im ages were obtained through the liver/right upper quadrant. 1.Cholecystectomy. The common duct is within normal li mits at 0.4 cm. There is no intrapelvic biliary dilation . 2.The liver is mildly enlarged at 16.6 cm maximum span , though otherwise demonstrates a normal homogeneous sonographic appearan ce. There is trace perihepatic ascites. 3.Hepatopedal flow is confirmed within t he main portal vein. 4.A small pleural effusion is suspected. [facility]-[id number] Procedure Note Interface, Radiology Results Incoming - 05/23/2020 12:19 PM CDT Examination: US HEPATIC Clinical history: Shock liver and abn bi li Comparison: None Impression: Transverse and longitudinal sonographic images were obtained through the liver/right upper quadrant. 1.Cholecystectomy. The common duct is wi thin normal limits at 0.4 cm. There is no intrapelvic biliary dilation. 2.The liver is mildly enlarged at 16.6 c m maximum span, though otherwise demonstrates a normal homogeneous sonographic appearance. There is trace perihepatic ascites. 3.Hepatopedal flow is confirmed within t he main portal vein. 4.A small pleural effusion is suspected. [facility]-[id number] Performing Organization Address City/[facility]/ZIP Code Phon e Number [facility] [address] [place] [address] [place] Renal (05/23/2020 10:28 AM CDT) Specimen Narrative Performed At EXAMINATION: [facility] CLINICAL HISTORY: Renal failure chronic (kidney di sease), patient ANURIC COMPARISON: June 16, 2019 IMPRESSION: The right kidney measures 9.6 x 5.1 x 4. 7. The left kidney measures 10.1 x 5.7 x 5. 1. The kidneys are normal in size and echogenicity. There is no evidence of renal mass, calculi, or hydronephrosis. A catheter is present within a nondisten ded bladder. [facility]-[id number] Procedure Note Hm Interface, Radiology Results Incoming - 05/23/2020 11:12 AM CDT EXAMINATION: US RENAL CLINICAL HISTORY: Renal failure chroni c (kidney disease), patient ANURIC COMPARISON: June 16, 2019 IMPRESSION: The right kidney measures 9.6 x 5.1 x 4. 7. The left kidney measures 10.1 x 5.7 x 5. 1. The kidneys are normal in size and echog enicity. There is no evidence of renal mass, calculi, or hydronephrosis. A catheter is present within a nondisten ded bladder. [facility]-[id number] Performing Organization Address City/[facility] Phon e Number [facility] [address] [place] [address] Hepatitis acute panel (05/22/2020 7:45 PM CDT) Pathologist Sig nature Hepatitis A IgM Non-reactive Non-reactive [facility] Hepatitis B core Non-reactive Non-reactive [facility] Hepatitis B surface Non-reactive Non-reactive [facility] Hepatitis C Ab Non-reactive Non-reactive [facility] Specimen Serum Narrative Performed At [facility] results called to and read back by [facility] DEPARTMEN T OF PATHOLOGY AND [facility] A/CORRY(name/location) MEDICINE at 05/22/2020 20:45 (date/time) by PC. Performing Organization Address [facility] Phon e Number [facility] DEPARTMENT OF PATHOLOGY AND [address] [place] [address] [phone] [address] Blood culture, aerobic & anaerobic (05/22/2020 4:05 PM CDT)Only the most recent of2 resultswithin the time period is included. Blood culture No growth after 5 days of incubation. AUGUSTINE MOE isolate Comment: HOSPITAL Specimen Information Specimen Source: Blood Specimen Site: Wrist, Left Specimen Blood - Wrist, left Performing Organization Address [facility] Phon e Number [facility] DEPARTMENT OF PATHOLOGY AND [address] [place] [address] [phone] [address] Arterial Line Insertion (05/22/2020 5:27 AM CDT) Narrative Performed At Michelle Schmidt NP 0 5:28 AM Arterial Line Insertion Date/Time: 05/22/2020 5:27 AM Performed by: Michelle Schmidt NP Authorized by: Michelle Schmidt NP Consent: Consent obtained: Verbal Consent given by: Patient Risks discussed: Bleeding, infectio n, pain, ischemia and repeat procedure Indications: Indications: hemodynamic monitoring a nd multiple ABGs Pre-procedure details: Skin preparation: 2% Chlorhexidine Anesthesia (see MAR for exact dosages): Anesthesia method: Local infiltrati on Local anesthetic: Lidocaine 1% w/o epi Procedure details: Location: R femoral Needle gauge: 20 G Placement technique: Seldinger Ultrasound guidance: yes Number of attempts: 2 Transducer: waveform confirmed Post-procedure details: Post-procedure: Biopatch applied, sterile dressin g applied, sutured and wrist guard applied CMS: Normal Patient tolerance of procedure: Agnes erated well, no immediate complications Transthoracic Echocardiogram Complete, (w Contrast, Strain and 3D if needed) (05/22/2020 2:15 AM CDT) Specimen Narrative Performed At [facility] Echo cardiography Report [id number] [facility] [address], [place] [address] Pat.Name: NASIR AVILA.ID: [id number] .Date: 05/22/2020 Refer.MD: ELVIN RAJPUT MD Exam Time: 12:55:00 AM Study Type:Ro utine Echo Height: 68in Weight: 161lb BSA: 1.87 m2 Ag e: 1940,79Y Sex: FEMALE BP: 150/87 HR: 53 bpm Sonogr phr: Jailyn Torres RDCS, RVT Pat. Stat.:Inpatient Room: [place] [address] Study Status:Final Echo Event ID:[id number] Order ID: [id number] Reason for Study:Acute hemo instability with hypotension (sys <100mmHg) History / Clinical:Coronary Artery Disea se, Diabetes, Hypertension, Valvular Heart Disease; Aortic Stenosis Procedures: 2D Echo, Colorflow Doppler, Portable, Stat, Intravenous Definity Contrast Race: C SUMMARY: LV size is mildly enlarged. LV EF is sev erely depressed. Global hypokinesis. EF = 23%. RV size is enlarged. RV systolic functio n is moderately depressed. Diastolic dysfunction Grade III (Severe) : Impaired relaxation with restrictive LV filling pressures. Estimated PA systolic pressure is 40-45 mmHg, assuming a mean RAP of 15-20 mmHg. Normal prosthetic aortic valve velocity and gradient. FINDINGS: LV: LV size is mildly enlarged. LV EF is severely depressed. EF = 23%. Global hypokinesis . RV: RV size is enlarged. RV sys tolic function is moderately depressed. LA: LA volume is severely enlar ged. RA: RA volume is severely enlar ged. AO: Aortic root diameter is nor mal. CORTEZ: No pericardial effusion. AV: Bioprosthetic aortic valve. Normal prosth etic valve velocity and gradient. Surgical Prosthetic AV Do ppler velocity index is 0.56 (normal>0.25). MV: No structural MV abnormalit ies noted. Mild mitral regurgitation. PV: No structural PV abnormalit ies noted. Mild pulmonic regurgitation. TV: No structural TV abnormalit ies noted. Mild to moderate tricuspid regurgitation Brothers: Diastolic dysfunction Grade III (Severe): Impaired relaxation with restricti ve LV filling pressures. Other: Estimated PA systolic pressu re is 40-45 mmHg, assuming a mean RAP of 15-20 mmHg. MEASUREMENTS: 2D Parasternal [place] Ao An 1.6 cm LVPWd 1.5 cm Ao Rtd 3.5 cm Index 1.9 cm/m2 LA Ds 4.5 cm IVSd 1.1 cm RWT 0.55 LVIDd 5.4 cm Index 2.9 cm/m2 LV Mass 289 g (87-12 9)* LVIDs 5.2 cm LVM In dex 154 g/m LV%fs 3.7 % LVOT 1.7 cm LV EF SinglePlane LVEDV 151 ml (59-13 6)* Index 81 ml/m2 LV EF 23 % (55-75)* LVESV 117 ml Index 62 ml/m2 LV SV 34 ml Left Ventricle LV CO 1.8 l/min LV CI 0.98 l/m/m LA Sng Plane LA Area 26 cm (8.8-23.4)* LA Vol 89 ml Index 48 ml/m2 LA LngAx 6.5 cm RA Sng Plane RA Vol 104 ml Index 56 ml/m2 RA LngAx 6.1 cm RA Area 27 cm (8.3-1 9.5)* LVOT LVOT Area 2.3 cm DOPPLER AV AV For Flow/ROMIE AV pkVel 175 cm/s (100-170)* AV AC/ET 0.3 AV mnVel 105 cm/s AV TVI 32 cm AV pkPG 12 mmHg AVpkAcRt 2475 cm/s AV Mean G 5.7 mmHg AV DeRt 578 cm/s AV ET 303 msec AV AC 92 msec (83-118) Aortic Valve AV DI 0.56 AV Are a 1.3 cm (3-5)* AV LVOT For Flow LVOT TVI 18 cm LVOTmnP G 2.6 mmHg LVOTpkVel 114 cm/s HR 47 bpm LVOTpkPG 5.2 mmHg LVOT LVOT SV 41 ml LVOT CO 1.9 l/min SVi 22 ml/m LVOT C I 1 l/m/m TV Pressure Gradient TV PkVel 275 cm/s TV PG 30 mmHg Signed 05/22/2020 10:29 AM Kulwinder Mcneal M.D. Procedure Note Interface, Radiology Results In - 2019 10:29 AM CDT Echocardiography Report [address] [address] Pat.Name: THIAGO NASIR Pat.I D: [id number] .Date: 05/22/2020 Refer .MD: ELVIN RAJPUT MD Exam Time: 12:55:00 AM Study Type:Routine Echo Height: 68in Weigh t: 161lb BSA: 1.87 m2 Age: 1 1940,79Y Sex: FEMALE BP: 150/87 HR: 53 bpm Sonog rphr: Jailyn Torres RDCS, RVT Pat. Stat.:Inpatient Room: [place] [address] Study Status:Final Echo Event ID:[id number] Order ID: [id number] Reason for Study:Acute hemo instability with hypotension (sys <100mmHg) History / Clinical:Coronary Artery Disea se, Diabetes, Hypertension, Valvular Heart Disease; Aortic Stenosis Procedures: 2D Echo, Colorflow Doppler, Portable, Stat, Intravenous Definity Contrast Race: C SUMMARY: LV size is mildly enlarged. LV EF is sev erely depressed. Global hypokinesis. EF = 23%. RV size is enlarged. RV systolic functio n is moderately depressed. Diastolic dysfunction Grade III (Severe) : Impaired relaxation with restrictive LV filling pressures. Estimated PA systolic pressure is 40-45 mmHg, assuming a mean RAP of 15-20 mmHg. Normal prosthetic aortic valve velocity and gradient. FINDINGS: LV: LV size is mildly enlarged. LV EF is severely depressed. EF = 23%. Global hypokinesis. RV: RV size is enlarged. RV systol ic function is moderately depressed. LA: LA volume is severely enlarged . RA: RA volume is severely enlarged . AO: Aortic root diameter is normal . CORTEZ: No pericardial effusion. AV: Bioprosthetic aortic valve. No rmal prosthetic valve velocity and gradient. Surgical Prosthe tic AV Doppler velocity index is 0.56 (normal>0.25). MV: No structural MV abnormalities noted. Mild mitral regurgitation. PV: No structural PV abnormalities noted. Mild pulmonic regurgitation. TV: No structural TV abnormalities noted. Mild to moderate tricuspid regurgitation Brothers: Diastolic dysfunction Grade II I (Severe): Impaired relaxation with restrictive LV filling pressures. Other: Estimated PA systolic pressure is 40-45 mmHg, assuming a mean RAP of 15-20 mmHg. MEASUREMENTS: 2D Parasternal [place] Ao An 1.6 cm LVPW d 1.5 cm Ao Rtd 3.5 cm Inde x 1.9 cm/m2 LA Ds 4.5 cm IVSd 1.1 cm RWT 0.55 LVIDd 5.4 cm Inde x 2.9 cm/m2 LV Mass 289 g (87-129)* LVIDs 5.2 cm LVM Index 154 g/m LV%fs 3.7 % LVOT 1.7 cm LV EF SinglePlane LVEDV 151 ml (59-136)* Index 81 ml/m2 LV E F 23 % (55-75)* LVESV 117 ml Inde x 62 ml/m2 LV SV 34 ml Left Ventricle LV CO 1.8 l/min LV C I 0.98 l/m/m LA Sng Plane LA Area 26 cm (8.8-23.4)* LA Vol 89 ml Index 48 ml/m2 LA LngAx 6.5 cm RA Sng Plane RA Vol 104 ml Inde x 56 ml/m2 RA LngAx 6.1 cm RA Area 27 cm (8.3-19.5)* LVOT LVOT Area 2.3 cm DOPPLER AV AV For Flow/ROMIE AV pkVel 175 cm/s (100-170)* AV AC/ET 0.3 AV mnVel 105 cm/s AV T 32 cm AV pkPG 12 mmHg AVpk AcRt 2475 cm/s AV Mean G 5.7 mmHg AV D eRt 578 cm/s AV ET 303 msec AV A C 92 msec (83-118) Aortic Valve AV DI 0.56 AV A john 1.3 cm (3-5)* AV LVOT For Flow LVOT TVI 18 cm LVOT mnPG 2.6 mmHg LVOTpkVel 114 cm/s HR 47 bpm LVOTpkPG 5.2 mmHg LVOT LVOT SV 41 ml LVOT CO 1.9 l/min SVi 22 ml/m LVO T CI 1 l/m/m TV Pressure Gradient TV PkVel 275 cm/s TV P G 30 mmHg Signed 05/22/2020 10:29 AM Kulwinder Mcneal M.D. Performing Organization Address City/State/ZIP Code Phon e Number [facility] [address] [place] [address] [place] Line Insertion (05/21/2020 11:30 PM CDT) Narrative Performed At Pratima Salomon NP 05/22/2020 5:23 A M [place] Line Insertion Performed by: Pratima Salomon NP Authorized by: Pratima Salomon NP Consent: Consent obtained: Emergent situatio n Pharr protocol: Immediately prior to procedure, a baljit bailey out was called: yes Patient identity confirmed: Sukhdeep borden and hospital-assigned identification number Pre-procedure details: Hand hygiene: Hand hygiene performed prior to insertion Sterile barrier technique: All elemen ts of maximal sterile technique followed Skin preparation: 2% chlorhexidine Skin preparation agent: Skin preparation agent comp letely dried prior to procedure Sedation: Sedation Type: Systemic Anesthesia (see MAR for exact dosages): Anesthesia method: Local infiltrati on Local anesthetic: Lidocaine 1% w/o epi Procedure details: Catheter type: Quad lumen Catheter site: femoral vein Catheter Site Laterality: Left Patient position: Flat Ultrasound guidance: yes Number of attempts: 1 Successful placement: yes Post-procedure details: Post-procedure: Dressing applied an d line sutured Assessment: Blood return through al l ports and free fluid flow Patient tolerance of procedure: Agnes erated well, no immediate complications Smear review (05/21/2020 9:53 PM CDT) Platelet slide review Decreased (A) [facility] [place] Anisocytosis Moderate [facility] Polychromasia [facility]erate [facility] Ovalocytes Moderate [facility] Ramses cells Many (A) [facility] Acanthocytes Occasional [facility] Enlarged platelets Moderate (A) [facility] Specimen Performing Organization Address City/[facility] Phon e Number [facility] DEPARTMENT OF PATHOLOGY AND [address] [place] [address] [phone] [address] Prepare fresh frozen plasma, 3 Units (05/21/2020 9:50 PM CDT) Product name Thawed Plasma [facility] Unit number [id number] [facility] Product code [id number] [facility] Dispense status Returned to BB not [place] transfused [facility] Blood expiration date [facility] Blood type code [address] [facility] Blood type B POSITIVE [facility] Compatibility Not required [facility] Product name Thawed Plasma [facility] Unit number [id number] [facility] Product [facility] [id number] [facility] Dispense status Returned to BB not [place] transfused [facility] Blood expiration date [facility] Blood type code [address] [facility] Blood type B POSITIVE [facility] Compatibility Not required [facility] Product name Thawed Plasma [facility] Unit number [id number] [facility] Product [facility] [id number] [facility] Dispense status Transfused [facility] Blood expiration date [facility] Blood type [facility] [address] [facility] Blood type B POSITIVE [facility] Compatibility Not required [facility] Specimen Blood Performing Organization Address City/[facility] Phon e Number [facility] DEPARTMENT OF PATHOLOGY AND [address] [place], [place] [address] [address] Prepare RBC, 4 Units (05/21/2020 9:50 PM CDT) Product name Red Blood Cells [place] -1, Leukored [facility] Unit number [id number] [facility] Product code [id number] [facility] Dispense status Returned to BB not [facility] Blood expiration date [facility] Blood type [facility] [address] [facility] Blood type B POSITIVE [facility] Compatibility Compatible [facility] Specimen Blood Performing Organization Address City/State/ZIP Code Phon e Number [facility] DEPARTMENT OF PATHOLOGY AND [address] [place] [address] [phone] [address] Type and screen (05/21/2020 9:50 PM CDT) Pathologist Sig nature ABO grouping B [facility] Rh type POS [facility] Antibody screen (gel) NEG [facility] Specimen Performing Organization Address City/[facility]/ZIP [facility] Phon e Number [facility] DEPARTMENT OF PATHOLOGY AND [address] [place] [address] [phone] [address] Thyroid stimulating hormone (05/21/2020 6:35 AM CDT) Pathologist Sig nature TSH 5.93 (H) 0.27 - 4.20 uIU/mL [facility] Specimen Blood Performing Organization Address City/State/ZIP Code Phon e Number [facility] DEPARTMENT OF PATHOLOGY AND [address] [place] [address] [phone] [address] T4, free (05/21/2020 6:35 AM CDT) Pathologist Sig nature T4, free 1.5 0.9 - 1.7 ng/dL [facility] L Specimen Blood Performing Organization Address City/[facility]/ZIP [facility] Phon e Number [facility] DEPARTMENT OF PATHOLOGY AND [address] [place] [address] [phone] [address] Lipid panel (05/21/2020 6:35 AM CDT) Cholesterol 108 <200 mg/dL [facility] Triglycerides 67 <150 mg/dL [facility] HDL cholesterol 41 >40 mg/dL [facility] LDL cholesterol 58Comment: Result <100 mg/dL [place] obtained by direct DENOMINATIONAL LDL [facility] Lipid panel [facility] interpretation Comment: DENOMINATIONAL Total Cholesterol (mg/dL) [facility]OSPIT [place] <200 Desirable [...] persons with high triglycerides (>=200 mg/dL) Specimen Blood Performing Organization Address City/State/ZIP Code Phon e Number [facility] DEPARTMENT OF PATHOLOGY AND [address] [place], [place] [address] [address] 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
[2020-07-18] MEDS ORDERED: NA CHLORIDE 0.9% 0 ML ONE (10:42)
--- OUTSIDE RECORDS SUMMARY | 2020-07-18 10:43 | XMS REPORT | Summary of Care ---
:1940 Author Organization [facility] - [facility] Address [address] [place] [id number] Care Team Providers Name Role Phone Hardik Efra Schmitz Primary Care Provider Reason for Visit Auth/Cert Status Reason Specialty Diagnoses / Referred By Contact Refe rred To Contact Procedures [address] [address] [place] [address] Encounter Details Date Type Department Care Team Description 03/30/2020 [facility] [address] [place], [place] [address] [address] [place] [address] Allergies Active Allergy Reactions Severity Noted Date Comments Codeine Hallucinations 06/20/2015 Morphine Hallucinations 06/20/2015 Penicillin Rash 06/20/2015 documented as of this encounter (statuses as of 06/15/2020) Medications Medication Sig Dispensed Refills Start Date End Date Status ALPRAZolam (XANAX) 0.25 TAKE 1 TABLET BY 1 6 Active mg tablet MOUTH EVERY DAY NEEDED amiodarone (CORDARONE) TAKE 1 TABLET BY 6 02/21/2016 Active 200 mg tablet MOUTH AT BEDTIME atorvastatin (LIPITOR) 0 03/06/2016 Active 40 mg tablet clopidogrel (PLAVIX) 75 Take 75 mg by 5 02/08/2016 Active mg tablet mouth daily. fenofibrate micronized 0 03/06/2016 Active (LOFIBRA) 134 mg capsule FLUoxetine (PROZAC) 20 0 02/14/2016 Active mg capsule furosemide (LASIX) 40 TAKE 1 TABLET BY 6 02/22/2016 Active mg tablet MOUTH TWICE A DAY JANUVIA 50 mg tablet Take 50 mg by 3 02/07/2016 Active mouth daily. pantoprazole (PROTONIX) TAKE 1 TABLET BY 9 6 Active 40 mg EC tablet MOUTH ONCE A DAY primidone (MYSOLINE) 50 TAKE 1 TABLET BY 6 6 Active mg tablet MOUTH TWICE A DAY spironolactone 0 03/06/2016 Acti ve (ALDACTONE) 50 mg tablet DOMINIQUE HURTADO 300 INJECT SUB 40 3 02/21/2016 Active unit/mL (1.5 mL) InPn UNITS EVERY DAY Blood Pressure Monitor Use as directed 1 Kit 0 03/13/2016 Active (BLOOD PRESSURE KIT) KitIndications: Essential hypertension documented as of this encounter (statuses as of 06/15/2020) Active Problems Problem Noted Date Hypertriglyceridemia 09/03/2016 Dyslipidemia 09/03/2016 Elevated TSH 09/03/2016 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 03/13/2016 HLD (hyperlipidemia) 03/13/2016 Metabolic syndrome X 03/13/2016 CKD (chronic kidney disease) stage 3, GFR 30-59 ml/min 03/13/2016 Essential hypertension 03/13/2016 documented as of this encounter (statuses as of 06/15/2020) Social History Tobacco Use Types Packs/Day Years Used Date Never Smoker Alcohol Use Drinks/Week oz/Week Comments Not Asked 0 Standard drinks or equivalent 0.0 Sex Assigned at Date Recorded Not on file documented as of this encounter Last Filed Vital Signs Not on filedocumented in this encounter Plan of Treatment Health Maintenance Due Date Last Done Comments EYE EXAM 1948 URINE MICROALBUMIN 1948 Depression Screening 1950 FOOT EXAM 1956 DTaP,Tdap,and Td Vaccines (1 - 1957 Tdap) Zoster Recombinant Vaccine 1988 (SHINGRIX) (1 of 2) Medicare Wellness Visit 2003 Osteoporosis Screening 2003 PNEUMOCOCCAL VACCINES 65+ (1 of 1 2003 - PPSV23) HgA1C 03/04/2017 09/03/2016, 03/13/2016 LDL-C 09/03/2017 09/03/2016, 01/30/2016 CREATININE (SERUM) 06/04/2019 06/04/2018, 01/29/2017, 01/20/2017, Additional history exists INFLUENZA VACCINE (#1) 2020 documented as of this encounter Results Not on filedocumented in this encounter Insurance Payer Benefit Plan Subscriber ID Effective Dates Phone Address Type / Group HUMANA - HUMANA CHOICE [id number] 2017-Presen Medicare Adv MANAGED t O MEDICARE documented as of this encounter
--- OUTSIDE RECORDS SUMMARY | 2020-07-18 10:43 | XMS REPORT | Summary of Care ---
:1940 Author Organization [facility] - Health Address [address] [place] [address] Care Team Providers Name Role Phone HardikEfra sanchez Primary Care Provider Reason for Visit Reason Comments Follow-up LT Hip IM Nail Encounter Details Date Type Department Care Team Description 06/30/2020 Office Visit [facility] Ceasar Lynch MD [address] [place] [address] History of Orthopaedic Surgery- Ajit Brantley, [facility] [address] [place] [address] hemiarthroplasty of right [place] hip (Primary Dx) [address] [place] [address] Allergies Active Allergy Reactions Severity Noted Date Comments Codeine Hallucinations 06/20/2015 Morphine Hallucinations 06/20/2015 Penicillin Rash 06/20/2015 documented as of this encounter (statuses as of 06/30/2020) Medications Medication Sig Dispensed Refills Start Date [...] (MYSOLINE) 50 TAKE 1 TABLET BY 6 Active mg tablet MOUTH TWICE A DAY spironolactone 0 03/06/2016 Acti ve (ALDACTONE) 50 mg tablet LAYUARIANNE SOLOSTAR 300 INJECT SUB 40 3 02/21/2016 Active unit/mL (1.5 mL) InPn UNITS EVERY DAY Blood Pressure Monitor Use as directed 1 Kit 0 03/13/2016 Active (BLOOD PRESSURE KIT) KitIndications: Essential hypertension documented as of this encounter (statuses as of 06/30/2020) Active Problems Problem Noted Date Hypertriglyceridemia 09/03/2016 Dyslipidemia 09/03/2016 Elevated TSH 09/03/2016 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 Never 06/30/2020 How many drinks containing alcohol do you have on a typical Not asked 06/30/2020 day when you are drinking? How often do you have six or more drinks on one occasion? 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 Follow up status post right hip hemiarthroplasty she arrived today just walking with a cane. At this point she has home health physical therapy She is not having any pain in her hip. She is status post right total knee replacement and her surgery was performed by Dr. Sandhu in [place], I saw her in the rehabilitation at [facility] she lives in this area and [place] and wanted to follow up with us instead of driving all the way to [place] for all of her appointments the date of surgery was approximately 2 weeks ago.She staying at [facility] and they had x-rays done there which she brought with her today, betsy have not come out yet. Allergies Lilian is allergic to codeine; morphine; and penicillin. Medications Outpatient Medications Prior to Visit Medication Sig Dispense Refill ALPRAZolam (XANAX) 0.25 mg tablet TAKE 1 TABLET BY MOUTH EVERY DAY NEEDED 1 amiodarone (CORDARONE) 200 mg tablet TAKE 1 TABLET BY MOUTH AT BEDTIME 6 atorvastatin (LIPITOR) 40 mg tablet Blood Pressure Monitor (BLOOD PRESSURE KIT) Kit Use as directed 1 Kit 0 clopidogrel (PLAVIX) 75 mg tablet Take 75 mg by mouth daily. 5 fenofibrate micronized (LOFIBRA) 134 mg capsule FLUoxetine (PROZAC) 20 mg capsule furosemide (LASIX) 40 mg tablet TAKE 1 TABLET BY MOUTH TWICE A DAY 6 JANUVIA 50 mg tablet Take 50 mg by mouth daily. 3 pantoprazole (PROTONIX) 40 mg EC tablet TAKE 1 TABLET BY MOUTH ONCE A DAY 9 primidone (MYSOLINE) 50 mg tablet TAKE 1 TABLET BY MOUTH TWICE A DAY 6 spironolactone (ALDACTONE) 50 mg tablet TOKEN SOLOSTAR 300 unit/mL (1.5 mL) InPn INJECT SUB 40 UNITS EVERY DAY 3 No facility-administered medications prior to visit. Histories Past Medical History: Diagnosis Date CAD (coronary artery disease) DM2 (diabetes mellitus, type 2) HTN (hypertension) Past Surgical History: Procedure Laterality Date AORTIC VALVE REPLACEMENT CABG, ARTERIAL, FOUR+ Social History Socioeconomic History Marital status: Spouse name: Not on file Number of children: Not on file Years of education: Not on file Highest education level: Not on file Occupational History Not on file Social Needs Financial resource strain: Not on file Food insecurity Worry: Not on file Inability: Not on file Transportation needs Medical: Not on file Non-medical: Not on file Tobacco Use Smoking status: Never Smoker Smokeless tobacco: Never Used Substance and Sexual Activity Alcohol use: Never Frequency: Never Binge frequency: Never Drug use: Not on file Sexual activity: Not on file Lifestyle Physical activity Days per week: Not on file Minutes per session: Not on file Stress: Not on file Relationships Social connections Talks on phone: Not on file Gets together: Not on file Attends alevism service: Not on file Active member of club or organization: Not on file Attends meetings of clubs or organizations: Not on file Relationship status: Not on file Intimate partner violence Fear of current or ex partner: Not on file Emotionally abused: Not on file Physically abused: Not on file Forced sexual activity: Not on file Other Topics Concern Not on file Social History Narrative Not on file Family History Problem Relation Age of Onset Diabetes Mother Review of Systems Constitutional: Negative. HENT: Negative. Eyes: Negative. Respiratory: Negative. Breasts: Negative. Cardiovascular: Negative. Gastrointestinal: Negative. Genitourinary: Negative. Musculoskeletal: Positive for gait problem and joint swelling. Negative for myalgias. Skin: Negative. Neurological: Positive for weakness. Psychiatric/Behavioral: Negative. Endocrine: Endocrine negative Vital Signs BP (!) 145/85 | Pulse 90 | Wt 72.6 kg (160 lb) | BMI 25.06 kg/m Physical Exam Musculoskeletal: Comments: Physical Exam Constitutional: oriented to person, place, and time. appears well-developed and well-nourished. HENT: Head: Normocephalic and atraumatic. Right Ear: External ear normal. Left Ear: External ear normal. Eyes: Conjunctivae are normal. Neck: Normal range of motion. No strabismus Neck supple. Cardiovascular: Normal rate and regular rhythm. Pulmonary/Chest: Normal respiratory rate equal chest rise and fall in no apparent distress Abdominal: Abdomen nondistended nontender Neurological: alert and oriented to person, place, and time. No asymmetry Skin: Skin is warm and dry. Psychiatric: normal mood and affect. behavior is normal. Judgment and thought content normal. Nursing note and vitals reviewed. She is able to walk with only a 4 point cane slightly antalgic gait Assessment/Plan 1. History of hemiarthroplasty of right hip Continue with physical therapy to maximize strength follow-up as needed. documented in this encounter Plan of Treatment Health [...] Results Not on filedocumented in this encounter Visit Diagnoses Diagnosis History of hemiarthroplasty of right hip - Primary documented in this encounter Insurance Payer Benefit Plan Subscriber ID Effective Dates Phone Address Type / Group HUMANA - HUMANA CHOICE [id number] 2017-Presen Medicare Adv MANAGED t PPO MEDICARE documented as of this encounter"
--- OUTSIDE RECORDS SUMMARY | 2020-07-18 10:43 | XMS REPORT | Continuity of Care Document ---
:1940 Author Organization [facility] t Address [address] [place] [address] Care Team Providers Name Role Phone Asked, Pcp Primary Care Physician Unavailable Abdelrahman MARQUES Attending Clinician Atiya MARQUES, O. Attending Clinician ATIYA Admitting Clinician Unavailable Payers Payer Name Policy Type Policy Effective Date Expiration Date Sour ce Number HUMANA [id number] 2017 [facility] MEDICAREHUMANA 00:00:00 [facility] MEDICARE PPO/PFFS/ERS [id number] 2018 -PresentPPO Problems Condition Condition Condition Status Onset Resolution Last Treating Co mments Source Name Details Category Date Date Treatment Clinician Date Nausea and Nausea and Disease Active [facility] vomiting vomiting 05-21 [facility] 00:00: st Cardiogeni Cardiogeni Disease Active [place] c shock c shock 06-21 [facility] 00:00: st 00 Atrial Atrial Disease Active [facility] fibrillati fibrillati 06-15 [facility] on 00:00: st Essential Essential Disease Active [place] hypertensi hypertensi 06-15 [facility] on 00:00: st 00 Type 2 Type 2 Disease Active [facility] diabetes diabetes 06-15 [facility] i mellitus mellitus 00:00: st 00 Allergies, Adverse Reactions, Alerts Allergy Allergy Status Severity Reaction(s) Onset Inactive Treating Comm ents Source Name Type Date Date Clinician Codeine Propensi Active Hallucinatio [place] to ns Methodi adverse st reaction s to drug Morphine Propensi Active Hallucinatio Pt had it [facility] ty to ns when son Methodi adverse was born. st reaction s to drug Penicill Propensi Active Rash Long time [place] in [place] ty to ago, pt [facility]i adverse can't st reaction remember. s to drug Family History Family Member Diagnosis Comments Start Date Stop Date Source Natural father Heart disease [facility] Zoroastrian Natural mother Cancer [facility] thodist Social History Social Habit Start Date Stop Date Quantity Comments Source History [facility] Meth odist Alcohol Std Drinks History [facility] Meth odist Alcohol Binge Sex Assigned At [facility] ethodist Tobacco use and 2020-05-21 2020-05-21 Never used [facility] ethodist exposure 00:00:00 00:00:00 Alcohol intake 2020-05-21 2020-05-21 Lifetime [facility] thodist 00:00:00 00:00:00 non-drinker (finding) History [facility] 2019-06-15 2019-06-15 1 [facility] Meth odist Alcohol Frequency 00:00:00 00:00:00 Smoking Status Start Date Stop Date Source Never smoker [facility] Methodis t Medications Ordered Filled Start Stop Current Ordering Indication Dosage Frequency Signature Comments Components Source Medication Medication Date Date Medication? Clinician (SIG) Name Name insulin 2020- No 55U QD Inject 55 [place] GLARGINE 06-06 Units Method[facility] (LANTUS) 19:48: 00:[address] 100 unit/mL 26 :00 skin injection daily. (vial) FLUoxetine 2020- No 20mg QD Take 20 mg [facility] (PROzac) 20 06-06 by mouth Met hodi MG capsule 19:48: 00:[address] 26 :00 clopidogrel 2019- 2020- No 75mg QD Take 75 mg [facility] (PLAVIX) 75 06-06 by mouth Met [facility] mg tablet 19:48: 00:[address] 26 :00 primidone 2019- 2020- No 50mg QD Take 50 mg [place] (MYSOLINE) 06-06 by mouth Meth farhad 50 MG 19:48: 00:[address] tablet 26 :00 atorvastati 2020- No 80mg QD Take 80 mg Reilly n (LIPITOR) 9-15 09-15 by mouth Met hodi 80 MG 19:48: 00:[address] tablet 26 :00 fenofibrate 2019- No 134mg QD Take 134 [place] (LOFIBRA) -15 09-15 mg by Methodi 54 MG 19:48: 00:[address] tablet 26 :00 daily. apixaban 2019-0 Yes 2.5mg Q.5D Take 2.5 [place] (ELIQUIS) 9-15 mg by [facility] 2.5 mg 19:48: mouth 2 st tablet 21 (two) times a day. diltiazem 2020- No 120mg QD Take 120 [place] CD - 09-15 mg by [facility] (CardIZEM 00:15: 00:[address] CD) 120 MG 16 :00 daily. 24 hr capsule carvediloL 2019- No 6.25mg Q.5D Take 6.25 [place] (COREG) 06-06 09-15 mg by Method[facility] 6.25 MG 00:15: 00:[address] tablet 10 :00 (two) times a day with meals. BUMETanide 2019- No 1mg QD Take 1 mg [place] (BUMEX) 1 06-06 by mouth Metho di MG tablet 00:14: 00:[address] 58 :00 diphenhydra 2019- 2020- No [id number] Apply [facility] mine-zinc 06-06 [id number] topically Methodi acetate 00:00: 23:59 3D 3 (three) st 2-0.1 % 00 :00 times a cream day as needed for itching for up to 30 days. digOXIN 2019-2019- No 125ug Q48H Take 1 [place] (LANOXIN) 06-03 10-12 tablet Method[facility] 125 mcg 00:00: 23:59 ([address] (0.125 mg) 00 :00 total) by tablet mouth every other day for 30 days. dextrose 2019-2019- No 25g Infuse 50 [place] 50% syringe 06-02 10-11 mL (25 g Met hodi 00:00: 23:59 total) st 00 :00 into a venous catheter every 20 (twenty) minutes as needed (If blood glucose is 40 mg/dL or LESS) for up to 30 days. dextrose 2020-0 2020- No 12.5g Infuse 25 [place] 50% syringe 9-11 10-11 mL (12.5 g M ethodi 00:00: 23:59 total) st 00 :00 into a venous catheter every 20 (twenty) minutes as needed (If blood glucose is between 41-69 mg/dL) for up to 30 days. dextrose 10 2019-0 2020- No 40mL/h Infuse 40 Reilly % infusion 9-11 10-11 mL/hr into Me thodi 00:00: 23:[address] 00 :00 catheter continuous ly as needed (For bedside glucose LESS than 70 mg/dL) for up to 30 days. furosemide 2020-0 2020- No 40mg Q.5D Take 1 [place] (LASIX) 40 9-11 10-11 tablet (40 Me thodi mg tablet 00:00: 23:59 mg total) st 00 :00 by mouth 2 (two) times a day for 30 days. glucagon 1 2019- 2020- No 1mg Inject 1 [place] mg/mL recon 9-11 10-11 mg into Meth farhad soln 00:00: 23:[address] 00 :00 shoulder, thigh, or buttocks every 15 (fifteen) minutes as needed (if patient NPO, unable to swallow safely with no IV access.) for up to 30 days. insulin 2020-0 2020- No 0U [id number] Inject [place] lispro 9-11 10-11 [id number] 0-12 Units [facility] (ADMELOG) 00:00: 23:[address] 100 unit/mL 00 :00 skin 3 injection (three) times a day with meals for 30 days. insulin NPH 2020-0 2020- No 20U Q12H Inject 20 [place] (HumuLIN-N) 9-11 10-11 Units Method i 100 unit/mL 00:00: 23:[address] injection 00 :00 skin every 12 (twelve) hours for 30 days. simethicone 2020-0 2020- No 80mg Q6H Chew 1 [place] (MYLICON) 9-11 10-11 tablet (80 Met hodi 80 MG 00:00: 23:59 mg total) st chewable 00 :00 every 6 tablet (six) hours as needed for flatulence for up to 30 days. pantoprazol 2020-0 2020- No 40mg QD Take 1 [place] e 06-02 tablet (40 [facility] (Protonix) 00:00: 23:59 mg total) s t 40 MG EC 00 :00 by mouth tablet daily for 30 days. sod phos 2019- No 2{tbl} Take 2 [place] di, mono-K 06-02 tablets by [place] ananya phos mono 00:00: 23:59 mouth once s t (PHOSPHA 00 :00 for 1 250 dose. NEUTRAL) 250 mg tablet per tablet calcitriol 2018-09- No .25ug QD Take 1 [place] (ROCALTROL) 07-25 capsule Meth farhad 0.25 MCG 00:00: 23:59 (0.[address] capsule 00 :00 total) by mouth daily for 30 days. calcium 2018-09 No 1000mg QD Chew 2 [place] carbonate 07-25 tablets Method i (TUMS) 200 00:00: 23:59 (1,000 mg s t mg calcium 00 :00 total) (500 mg) daily for chewable 30 days. tablet pantoprazol 2018-09 No 40mg QD Take 1 [place] e 07-25 tablet (40 [facility] (PROTONIX) 00:00: 23:59 mg total) s t 40 MG EC 00 :00 by mouth tablet daily for 30 days. carvedilol 2018-09- No 6.25mg Q.5D Take 1 Ravinder richardson (COREG) 07-24 tablet Methodi 6.25 MG 00:00: 23:59 (6.[address] tablet 00 :00 total) by mouth 2 (two) times a day for 30 days. hydrALAZINE 2018-09- No 100mg [id number] Take 1 [place] (APRESOLINE 07-24 [id number] tablet Methodi ) 100 MG 00:00: 23:59 3D ([address] tablet 00 :00 total) by mouth every 8 (eight) hours for 30 days. insulin 2018-09- No 5U [id number] Inject 5 [place] lispro 07-24 [id number] Units Metho di (HumaLOG) 00:00: 23:[address] 100 unit/mL 00 :00 skin 3 injection (three) times a day with meals for 30 days. isosorbide 2018-09- No 20mg [id number] Take 1 [place] dinitrate 07-24 [id number] tablet (20 [facility] (ISORDIL) 00:00: 23:59 3D [...] Date Status Commen ts Source Name Name FLUCELVAX QUAD PF 2019-06-24 Completed [facility] 00:00:00 Zoroastrian Vital Signs Vital Name Observation Time Observation Value Comments Source Systolic blood 2020-06-06 15:39:46 151 mm[Hg] [place] pressure Diastolic blood 2020-06-06 15:39:46 59 mm[Hg] [place] [facility]astrian pressure Heart rate 2020-06-06 15:39:46 61 /min Tommie Goldberg Body temperature 2020-06-06 15:39:46 36.44 Viktoriya [place] [facility]astrian Respiratory rate 2020-06-06 15:39:46 18 /min [place] [facility]rian Oxygen saturation in 2020-06-06 15:39:46 99 /min Tommie Goldberg Arterial blood by Pulse oximetry Body weight 2020-06-06 04:23:59 75.479 kg Tommie Goldberg BMI 2020-06-06 04:23:59 25.30 kg/m2 Tommie Goldberg Procedures Procedure Date / Time Performing Clinician Source Performed TROPONIN 2020-06-06 13:00:00 Elvin Rajput POC GLUCOSE 2020-06-06 11:36:00 Elvin Rajput POC GLUCOSE 2020-06-06 07:51:00 Elvin Rajput TROPONIN 2020-06-06 07:31:00 Elvin Rajput POC GLUCOSE 2020-06-06 06:37:00 Elvin Rajput POC GLUCOSE 2020-06-05 21:29:00 Elvin Rajput POC GLUCOSE 2020-06-05 18:08:00 Elvin Rajput POC GLUCOSE 2020-06-05 11:47:00 Elvin Rajput POC GLUCOSE 2020-06-05 08:07:00 Elvin Rajput MAGNESIUM LEVEL 2020-06-05 04:00:00 Kory Oroscoodist Kong PHOSPHORUS LEVEL 2020-06-05 04:00:00 Kory Orosco [place] HC COMPLETE BLD COUNT 2020-06-05 04:00:00 Elvin Rajput W/AUTO DIFF ESTIMATED GFR 2020-06-05 04:00:00 Kory Orosco ethodist [place] COMPREHENSIVE METABOLIC 2020-06-05 04:00:00 Kory Orosco Zoroastrian PANEL [place] POC GLUCOSE 2020-06-05 03:29:00 Elvin Rajput POC GLUCOSE 2020-06-05 03:18:00 Elvin Rajput POC GLUCOSE 2020-06-04 21:11:00 Elvin Rajput POC GLUCOSE 2020-06-04 18:12:00 Elvin Rajput POC GLUCOSE 2020-06-04 16:42:00 Elvin Rajput POC GLUCOSE 2020-06-04 12:08:00 Elvin Rajput POC GLUCOSE 2020-06-04 07:40:00 Elvin Rajput BASIC METABOLIC PANEL 2020-06-04 05:00:00 OroscoKory Zoroastrian [place] MAGNESIUM LEVEL 2020-06-04 05:00:00 Kwesi Kory Reilly Trang ethodist [place] PHOSPHORUS LEVEL 2020-06-04 05:00:00 Kwesi Kory Reilly Zoroastrian [place] ESTIMATED GFR 2020-06-04 05:00:00 Kwesi LamGeochristopher Reilly Trang ethodist [place] POC GLUCOSE 2020-06-03 20:20:00 Elvin Rajput Zoroastrian POC GLUCOSE 2020-06-03 17:03:00 Elvin Rajput Zoroastrian POC GLUCOSE 2020-06-03 12:01:00 Elvin Rajput Zoroastrian POC GLUCOSE 2020-06-03 07:51:00 Elvin Rajput Zoroastrian HEPATIC FUNCTION PANEL 2020-06-03 04:00:00 Nicole Weiss Zoroastrian DIGOXIN LEVEL 2020-06-03 04:00:00 Keo Delgado odist BASIC METABOLIC PANEL 2020-06-03 04:00:00 Kory Orosco Zoroastrian [place] MAGNESIUM LEVEL 2020-06-03 04:00:00 Kwesi Kory Reilly Trang ethodist [place] PHOSPHORUS LEVEL 2020-06-03 04:00:00 Kory Orosco Zoroastrian [place] ESTIMATED GFR 2020-06-03 04:00:00 Nicole Weiss Met hodist POC GLUCOSE 2020-06-02 21:30:00 Elvin Rajput Zoroastrian POC GLUCOSE 2020-06-02 17:15:00 Elvin Rajput Zoroastrian POC GLUCOSE 2020-06-02 11:58:00 Elvin Rajput Zoroastrian POC GLUCOSE 2020-06-02 08:27:00 Elvin Rajput Zoroastrian POC GLUCOSE 2020-06-02 06:49:00 Elvin Rajput Zoroastrian PARTIAL THROMBOPLASTIN 2020-06-02 04:40:00 Keo Delgado on Zoroastrian TIME (PTT) BASIC METABOLIC PANEL 2020-06-02 04:00:00 Kory Orosco Zoroastrian [place] MAGNESIUM LEVEL 2020-06-02 04:00:00 Kory Orosco Trang ethodist [place] PHOSPHORUS LEVEL 2020-06-02 04:00:00 Kory Orosco Zoroastrian [place] HEPATIC FUNCTION PANEL 2020-06-02 04:00:00 Nicole Weiss Zoroastrian ESTIMATED GFR 2020-06-02 04:00:00 Kory Orosco ethodist [place] URINE CULTURE 2020-06-02 02:00:00 Elvin Rajput URINALYSIS SCREEN AND 2020-06-02 02:00:00 Elvin Rajput MICROSCOPY, WITH REFLEX TO CULTURE POC GLUCOSE 2020-06-01 21:00:00 Elvin Rajput COVID-19 QUALITATIVE PCR 2020-06-01 19:48:00 Elvin Rajput POC GLUCOSE 2020-06-01 17:38:00 Elvin Rajput POC GLUCOSE 2020-06-01 12:34:00 Elvin Rajput POC GLUCOSE 2020-06-01 09:00:00 Elvin Rajput POC GLUCOSE 2020-06-01 05:12:00 Elvin Rajput BASIC METABOLIC PANEL 2020-06-01 05:00:00 Clare OroscoDoraGeo Castellonwindy sharp Zoroastrian [place] MAGNESIUM LEVEL 2020-06-01 05:00:00 Jarad OroscodonaldGeochristopher Costello ethodist [place] PHOSPHORUS LEVEL 2020-06-01 05:00:00 Kwesi LamGeochristopher Reilly Zoroastrian [place] DIGOXIN LEVEL 2020-06-01 05:00:00 Keo Delgado Meth odist HEPATIC FUNCTION PANEL 2020-06-01 05:00:00 Nicole Weiss Zoroastrian ESTIMATED GFR 2020-06-01 05:00:00 Nicole Weiss Met hodist POC GLUCOSE 2020-05-31 23:23:00 Elvin Rajput PARTIAL THROMBOPLASTIN 2020-05-31 23:20:00 Keo Delgado on Zoroastrian TIME (PTT) POC GLUCOSE 2020-05-31 21:03:00 Elvin Rajput POC GLUCOSE 2020-05-31 17:35:00 Elvin Rajput PARTIAL THROMBOPLASTIN 2020-05-31 16:15:00 Keo Delgado on Zoroastrian TIME (PTT) POC GLUCOSE 2020-05-31 12:17:00 Elvin Rajput Zoroastrian PARTIAL THROMBOPLASTIN 2020-05-31 08:35:00 Elvin Rajput Zoroastrian TIME (PTT) POC GLUCOSE 2020-05-31 08:14:00 Elvin Rajputist DIGOXIN LEVEL 2020-05-31 00:45:00 Keo Delgado Meth odist PARTIAL THROMBOPLASTIN 2020-05-31 00:45:00 Elvin Rajput Zoroastrian TIME (PTT) B NATRIURETIC PEPTIDE 2020-05-31 00:45:00 Keo Delgado Zoroastrian BASIC METABOLIC PANEL 2020-05-31 00:45:00 Kory Orosco stoangela Zoroastrian [place] MAGNESIUM LEVEL 2020-05-31 00:45:00 Kory Orosco ethodist [place] PHOSPHORUS LEVEL 2020-05-31 00:45:00 Kory Orosco Zoroastrian [place] ESTIMATED GFR 2020-05-31 00:45:00 Kory Orosco ethodist [place] POC GLUCOSE 2020-05-30 21:29:00 Elvin Rajput Zoroastrian POC GLUCOSE 2020-05-30 17:27:00 Elvin Rajput Zoroastrian PARTIAL THROMBOPLASTIN 2020-05-30 14:05:00 Keo Delgado on Zoroastrian TIME (PTT) POC GLUCOSE 2020-05-30 11:32:00 Elvin Rajput Zoroastrian POC GLUCOSE 2020-05-30 08:03:00 Elvin Rajput Zoroastrian HEPATIC FUNCTION PANEL 2020-05-30 06:09:00 Pratima Salomon on Zoroastrian HC COMPLETE BLD COUNT 2020-05-30 06:09:00 Elvin Rajput Zoroastrian W/AUTO DIFF BASIC METABOLIC PANEL 2020-05-30 06:09:00 Vivek Quinteros Zoroastrian PARTIAL THROMBOPLASTIN 2020-05-30 06:09:00 Pratima Salomon on Zoroastrian TIME (PTT) ESTIMATED GFR 2020-05-30 06:09:00 Vivek Quinteros Ky thodist MAGNESIUM LEVEL 2020-05-30 06:09:00 Pratima Salomon Meth odist B NATRIURETIC PEPTIDE 2020-05-30 06:00:00 Elvin Rajput Zoroastrian POC GLUCOSE 2020-05-29 21:21:00 Elvin Rajput PARTIAL THROMBOPLASTIN 2020-05-29 21:00:00 Elvin Rajput Zoroastrian TIME (PTT) POC GLUCOSE 2020-05-29 18:20:00 Elvin Rajput PARTIAL THROMBOPLASTIN 2020-05-29 12:20:00 Pratima Salomon on Zoroastrian TIME (PTT) POC GLUCOSE 2020-05-29 12:17:00 Elvin Rajput POC GLUCOSE 2020-05-29 08:23:00 Elvin Rajput HEPATIC FUNCTION PANEL 2020-05-29 05:50:00 Pratima Salomon Zoroastrian B NATRIURETIC PEPTIDE 2020-05-29 05:50:00 Pratima Salomon Zoroastrian MAGNESIUM LEVEL 2020-05-29 05:50:00 Joann Rivers Zoroastrian PARTIAL THROMBOPLASTIN 2020-05-29 05:50:00 Pratima Salomon on Zoroastrian TIME (PTT) ESTIMATED GFR 2020-05-29 05:50:00 Pratima Salomon Meth odist BASIC METABOLIC PANEL 2020-05-29 05:50:00 Pratima Salomon Zoroastrian POC GLUCOSE 2020-05-28 21:03:00 Elvin Rajput PARTIAL THROMBOPLASTIN 2020-05-28 19:54:00 Elvin Rajput Zoroastrian TIME (PTT) POC GLUCOSE 2020-05-28 17:31:00 Elvin Rajput ANTI XA, UNFRACTIONATED 2020-05-28 15:20:00 Elvin Rajput POC GLUCOSE 2020-05-28 12:20:00 Elvin Rajput POC GLUCOSE 2020-05-28 07:47:00 Elvin Rajput POC GLUCOSE 2020-05-28 05:30:00 Elvin Rajput ECG 12-LEAD 2020-05-28 04:02:27 Elvin Rajput HEPATIC FUNCTION PANEL 2020-05-28 04:00:00 Pratima Salomon Zoroastrian BASIC METABOLIC PANEL 2020-05-28 04:00:00 Veronica Schuler Zoroastrian IONIZED CALCIUM 2020-05-28 04:00:00 Ganga Veronica Tommie Meth odist MAGNESIUM LEVEL 2020-05-28 04:00:00 Ganga Veronica Tommie Meth odist PHOSPHORUS LEVEL 2020-05-28 04:00:00 Damien Schuleren Tommie Met hodist ESTIMATED GFR 2020-05-28 04:00:00 OrganekAminah Tommie Met hodist DIGOXIN LEVEL 2020-05-28 04:00:00 OrganekAminah Met hodist B NATRIURETIC PEPTIDE 2020-05-28 03:45:00 Pratima Salomon Zoroastrian HC COMPLETE BLD COUNT 2020-05-28 03:45:00 Veronica Schuler Zoroastrian W/AUTO DIFF PARTIAL THROMBOPLASTIN 2020-05-28 03:45:00 Elvin Rajput Zoroastrian TIME (PTT) POC GLUCOSE 2020-05-27 23:24:00 Elvin Rajput PARTIAL THROMBOPLASTIN 2020-05-27 19:55:00 Aminah Og Zoroastrian TIME (PTT) POC GLUCOSE 2020-05-27 19:44:00 Elvin Rajput Zoroastrian POC GLUCOSE 2020-05-27 15:24:00 Elvin Rajput Zoroastrian POC GLUCOSE 2020-05-27 11:12:00 Elvin Rajput Zoroastrian POC GLUCOSE 2020-05-27 11:11:00 Elvin Rajput Zoroastrian POC GLUCOSE 2020-05-27 07:29:00 Elvin Rajput Zoroastrian POC GLUCOSE 2020-05-27 03:21:00 Elvin Rajput HEPATIC FUNCTION PANEL 2020-05-27 01:06:00 Nicole Weiss Zoroastrian BASIC METABOLIC PANEL 2020-05-27 01:06:00 Zainab Saini Zoroastrian IONIZED CALCIUM 2020-05-27 01:06:00 Zainab Saini Meth odist MAGNESIUM LEVEL 2020-05-27 01:06:00 Zainab Saini Meth odist PHOSPHORUS LEVEL 2020-05-27 01:06:00 YenyZainab Tommie Met hodist DIGOXIN LEVEL 2020-05-27 01:06:00 OrganAminah shepherd Met hodist ESTIMATED GFR 2020-05-27 01:06:00 AbhishekNicole Tommie Met hodist PROTHROMBIN TIME WITH INR 2020-05-27 00:18:00 OrganekAminah Zoroastrian PARTIAL THROMBOPLASTIN 2020-05-27 00:18:00 OrganAminah shepherd Zoroastrian TIME (PTT) B NATRIURETIC PEPTIDE 2020-05-27 00:18:00 OrganAminah shepherd on Zoroastrian HC COMPLETE BLD COUNT 2020-05-27 00:18:00 Zainab Saini W/AUTO DIFF POC GLUCOSE 2020-05-26 23:18:00 Elvin Rajput POC GLUCOSE 2020-05-26 19:25:00 Elvin Rajput POC GLUCOSE 2020-05-26 15:07:00 Elvin Rajput POC GLUCOSE 2020-05-26 10:57:00 Elvin Rajput POC GLUCOSE 2020-05-26 07:01:00 Elvin Rajput XR CHEST 1 VW PORTABLE 2020-05-26 06:05:00 Zainab Saini on Zoroastrian POC GLUCOSE 2020-05-26 03:55:00 Elvin Rajput HEPATIC FUNCTION PANEL 2020-05-26 00:56:00 Nicole Weiss Zoroastrian BASIC METABOLIC PANEL 2020-05-26 00:56:00 Zainab Saini Zoroastrian MAGNESIUM LEVEL 2020-05-26 00:56:00 YenyConchadavid Reilly Meth odist PHOSPHORUS LEVEL 2020-05-26 00:56:00 Concha Sainiah Tommie Met hodist ESTIMATED GFR 2020-05-26 00:56:00 Zainab Saini Meth odist POC GLUCOSE 2020-05-26 00:53:00 Elvin Rajput PROTHROMBIN TIME WITH INR 2020-05-26 00:32:00 OrganekAminah Zoroastrian PARTIAL THROMBOPLASTIN 2020-05-26 00:32:00 Aminah Og Zoroastrian TIME (PTT) HC COMPLETE BLD COUNT 2020-05-26 00:32:00 Zainab Saini W/AUTO DIFF ARTERIAL BLOOD GAS 2020-05-26 00:32:00 Zainab Saini ethodist B NATRIURETIC PEPTIDE 2020-05-26 00:32:00 Aminah Og HEMOGLOBIN A1C 2020-05-26 00:32:00 Aminah Og hodist IONIZED CALCIUM, ARTERIAL 2020-05-26 00:32:00 Zainab Saini Zoroastrian POC GLUCOSE 2020-05-25 22:58:00 Elvin Rajput POC GLUCOSE 2020-05-25 21:08:00 Elvin Rajput POC GLUCOSE 2020-05-25 19:37:00 Elvin Rajput POC GLUCOSE 2020-05-25 18:35:00 Elvin Rajput POC GLUCOSE 2020-05-25 17:32:00 Elvin Rajput IONIZED CALCIUM 2020-05-25 16:30:00 Catracho Elizabeth Nnebuogo POC GLUCOSE 2020-05-25 16:21:00 Elvin Rajput POC GLUCOSE 2020-05-25 13:52:00 Elvin Rajput POC GLUCOSE 2020-05-25 12:17:00 Elvin Rajput POC GLUCOSE 2020-05-25 11:10:00 Elvin Rajput POC GLUCOSE 2020-05-25 09:48:00 Elvin Rajput ECG 12-LEAD 2020-05-25 09:22:31 Elvin Rajput POC GLUCOSE 2020-05-25 08:02:00 Elvin Rajput POC GLUCOSE 2020-05-25 07:03:00 Elvin Rajput XR CHEST 1 VW PORTABLE 2020-05-25 06:42:46 Zainab Saini Zoroastrian POC GLUCOSE 2020-05-25 06:14:00 Elvin Rajput POC GLUCOSE 2020-05-25 05:10:00 Elvin Rajput POC GLUCOSE 2020-05-25 03:45:00 Elvin Rajput POC GLUCOSE 2020-05-25 02:07:00 Elvin Rajput POC GLUCOSE 2020-05-25 00:03:00 Elvin Rajput B NATRIURETIC PEPTIDE 2020-05-25 00:00:00 Aminah Ogist GGT 2020-05-25 00:00:00 Nicole Weiss Met hodist HEPATIC FUNCTION PANEL 2020-05-25 00:00:00 Abhishek Nicole lo Zoroastrian VANCOMYCIN LEVEL, RANDOM 2020-05-25 00:00:00 Aminah Og BASIC METABOLIC PANEL 2020-05-25 00:00:00 Zainab Saini HC COMPLETE BLD COUNT 2020-05-25 00:00:00 Zainab Saini W/AUTO DIFF IONIZED CALCIUM 2020-05-25 00:00:00 Zainab Saini Meth odist MAGNESIUM LEVEL 2020-05-25 00:00:00 Zainab Saini Meth odist PHOSPHORUS LEVEL 2020-05-25 00:00:00 Zainab Saini hodjohanna PROTHROMBIN TIME WITH INR 2020-05-25 00:00:00 Aminah Og PARTIAL THROMBOPLASTIN 2020-05-25 00:00:00 Aminah Og TIME (PTT) VENOUS BLOOD GAS 2020-05-25 00:00:00 Aminah Og Me thodist ESTIMATED GFR 2020-05-25 00:00:00 Aminah Og hodist POC GLUCOSE 2020-05-24 22:51:00 Elvin Rajput POC GLUCOSE 2020-05-24 22:04:00 Elvin Rajputist POC GLUCOSE 2020-05-24 21:21:00 Elvin Rajput POC GLUCOSE 2020-05-24 19:54:00 Elvin Rajput POC GLUCOSE 2020-05-24 18:03:00 Elvin Rajputist POC GLUCOSE 2020-05-24 17:06:00 Elvin Rajput SODIUM LEVEL 2020-05-24 16:45:00 Aminah Og hodist POC GLUCOSE 2020-05-24 16:04:00 Elvin Rajputist POC GLUCOSE 2020-05-24 14:49:00 Elvin Rajput POC GLUCOSE 2020-05-24 13:54:00 Elvin Rajput Zoroastrian POC GLUCOSE 2020-05-24 13:03:00 Elvin Rajput PROTHROMBIN TIME WITH INR 2020-05-24 12:30:00 Aminah Og Zoroastrian PARTIAL THROMBOPLASTIN 2020-05-24 12:30:00 Aminah Og Zoroastrian TIME (PTT) POC GLUCOSE 2020-05-24 11:56:00 Elvin Rajput Zoroastrian POC GLUCOSE 2020-05-24 10:59:00 Elvin Rajput XR CHEST 1 VW PORTABLE 2020-05-24 10:10:00 Zainab Saini on Zoroastrian POC GLUCOSE 2020-05-24 09:54:00 Elvin Rajputist POC GLUCOSE 2020-05-24 08:54:00 Elvin Rajput BUN LEVEL 2020-05-24 08:15:00 Vivek Quinteros Ky thodist CREATININE LEVEL 2020-05-24 08:15:00 Vivek Quinteros ethodist IONIZED CALCIUM 2020-05-24 08:15:00 Vivek Quinteros Ky thodist MAGNESIUM LEVEL 2020-05-24 08:15:00 Vivek Quinteros Ky thodist PHOSPHORUS LEVEL 2020-05-24 08:15:00 Vivek Quinteros ethodist POTASSIUM LEVEL 2020-05-24 08:15:00 Vivek Quinteros Ky thodist PARTIAL THROMBOPLASTIN 2020-05-24 08:15:00 Vivek Quinteros stoangela Zoroastrian TIME (PTT) SODIUM LEVEL 2020-05-24 08:15:00 Vivek Quinteros Ky thodist ESTIMATED GFR 2020-05-24 08:15:00 Vivek Quinteros Ky thodist POC GLUCOSE 2020-05-24 08:10:00 Elvin Rajput Zoroastrian POC GLUCOSE 2020-05-24 07:03:00 Elvin Rajput Zoroastrian POC GLUCOSE 2020-05-24 05:54:00 Elvin Rajput Zoroastrian POC GLUCOSE 2020-05-24 05:12:00 Elvin Rajput Zoroastrian POC GLUCOSE 2020-05-24 03:54:00 Elvin Rajput XR CHEST 1 VW PORTABLE 2020-05-24 03:12:00 Aminah Og POC GLUCOSE 2020-05-24 03:05:00 Elvin Rajput POC GLUCOSE 2020-05-24 01:56:00 Elvin Rajput POC GLUCOSE 2020-05-24 00:10:00 Elvin Rajput B NATRIURETIC PEPTIDE 2020-05-24 00:08:00 Aminah Og PARTIAL THROMBOPLASTIN 2020-05-24 00:08:00 Vivek Quinteros Zoroastrian TIME (PTT) BASIC METABOLIC PANEL 2020-05-24 00:08:00 Rosario Wild Natanael HC COMPLETE BLD COUNT 2020-05-24 00:08:00 Rosario Wild W/AUTO DIFF Natanael PHOSPHORUS LEVEL 2020-05-24 00:08:00 Rosario Wild Natanael MAGNESIUM LEVEL 2020-05-24 00:08:00 Rosario Wild Natanael LACTIC ACID LEVEL 2020-05-24 00:08:00 Rosario Wild n Zoroastrian Natanael IONIZED CALCIUM 2020-05-24 00:08:00 Rosario Wild Natanael HEPATIC FUNCTION PANEL 2020-05-24 00:08:00 Rosario Wild Natanael PROTHROMBIN TIME WITH INR 2020-05-24 00:08:00 Aminah Og FIBRINOGEN 2020-05-24 00:08:00 Aminah Og VENOUS BLOOD GAS 2020-05-24 00:08:00 Aminah Og Me thodist TROPONIN 2020-05-24 00:08:00 Aminah Og ESTIMATED GFR 2020-05-24 00:08:00 Rosario Wild Natanael POC GLUCOSE 2020-05-23 21:47:00 Elvin Rajput POC GLUCOSE 2020-05-23 19:51:00 Elvin Rajput PROTHROMBIN TIME WITH INR 2020-05-23 18:15:00 Aminah Og FIBRINOGEN 2020-05-23 18:15:00 OrganekAminah Met hodist HC COMPLETE BLD COUNT 2020-05-23 18:15:00 OrganekAminah on Zoroastrian W/AUTO DIFF LACTIC ACID LEVEL 2020-05-23 18:05:00 OrganAminah shepherd M ethodist TROPONIN 2020-05-23 18:05:00 OrganekAminah Met hodist POC GLUCOSE 2020-05-23 17:56:00 Elvin Rajput Zoroastrian POC GLUCOSE 2020-05-23 17:12:00 Elvin Rajput Zoroastrian BUN LEVEL 2020-05-23 16:00:00 Vivek Quinteros Ky thodist CREATININE LEVEL 2020-05-23 16:00:00 Vivek Quinteros ethodist IONIZED CALCIUM 2020-05-23 16:00:00 Vivek Quinteros Ky thodist MAGNESIUM LEVEL 2020-05-23 16:00:00 Vivek Quinteros Ky thodist PHOSPHORUS LEVEL 2020-05-23 16:00:00 Vivek Quinteros ethodist POTASSIUM LEVEL 2020-05-23 16:00:00 Vivek Quinteros Ky thodist PARTIAL THROMBOPLASTIN 2020-05-23 16:00:00 Vivek Quinteros Zoroastrian TIME (PTT) SODIUM LEVEL 2020-05-23 16:00:00 Vivek Quinteros Ky thodist ESTIMATED GFR 2020-05-23 16:00:00 Vivek Quinteros Ky thodist POC GLUCOSE 2020-05-23 15:56:00 Elvin Rajput POC GLUCOSE 2020-05-23 14:56:00 Elvin Rajputist POC GLUCOSE 2020-05-23 13:59:00 Elvin Rajput POC GLUCOSE 2020-05-23 13:00:00 Elvni Rajput BASIC METABOLIC PANEL 2020-05-23 12:30:00 Vivek Quinteros Zoroastrian ESTIMATED GFR 2020-05-23 12:30:00 Vivek Quinteros Ky thodist POC GLUCOSE 2020-05-23 12:01:00 Elvin Rajput LACTIC ACID LEVEL 2020-05-23 12:00:00 Organek Aminah Reilly M ethodist TROPONIN 2020-05-23 12:00:00 Organek, Aminah Reilly Met hodist POC GLUCOSE 2020-05-23 11:01:00 Elvin Rajput US HEPATIC 2020-05-23 10:50:53 Organek Aminah Reilly Met hodist US RENAL 2020-05-23 10:28:00 Vivek Quinteros Me thodist POC GLUCOSE 2020-05-23 10:12:00 Elvin Rajput XR CHEST 1 VW PORTABLE 2020-05-23 10:10:00 Organek Aminah Rod ton Zoroastrian POC GLUCOSE 2020-05-23 09:21:00 Elvin Rajput ECG 12-LEAD 2020-05-23 09:15:48 Organek, Aminah Reilly Met hodist URINE CULTURE 2020-05-23 08:24:00 Organek, Aminah Reilly Met hodist POC GLUCOSE 2020-05-23 08:14:00 Elvin Rajput URINALYSIS SCREEN AND 2020-05-23 08:00:00 OrganekAminah on Zoroastrian MICROSCOPY, WITH REFLEX TO CULTURE LACTIC ACID LEVEL 2020-05-23 07:20:00 Organek Aminah Reilly M ethodist TROPONIN 2020-05-23 07:20:00 OrganekAminah Met hodist IONIZED CALCIUM 2020-05-23 07:15:00 OrganekAminah Met hodist POC GLUCOSE 2020-05-23 07:14:00 Elvin Rajput POC GLUCOSE 2020-05-23 04:11:00 Elvin Rajput POC GLUCOSE 2020-05-23 00:22:00 Elvin Rajput CBC WITH PLATELET AND 2020-05-23 00:10:00 Elvin Rajput DIFFERENTIAL BASIC METABOLIC PANEL 2020-05-23 00:10:00 Elvin Rajput TROPONIN 2020-05-23 00:10:00 OrganAminah shepherd Met hodist VANCOMYCIN LEVEL, RANDOM 2020-05-23 00:10:00 OrganAminah shepherd IONIZED CALCIUM 2020-05-23 00:10:00 Veronica Schuler Meth odist MAGNESIUM LEVEL 2020-05-23 00:10:00 GangaVeronica Meth odist PHOSPHORUS LEVEL 2020-05-23 00:10:00 GangaVeronica Met hodist VENOUS BLOOD GAS 2020-05-23 00:10:00 OrganekAminah Reilly Me thodist PARTIAL THROMBOPLASTIN 2020-05-23 00:10:00 Organek, Aminah lo Zoroastrian TIME (PTT) PROTHROMBIN TIME WITH INR 2020-05-23 00:10:00 OrganekAminah Zoroastrian FIBRINOGEN 2020-05-23 00:10:00 OrganekAminah Met hodist B NATRIURETIC PEPTIDE 2020-05-23 00:10:00 OrganekAminah Zoroastrian HEPATIC FUNCTION PANEL 2020-05-23 00:10:00 OrganekAminah Zoroastrian LACTIC ACID LEVEL 2020-05-23 00:10:00 OrganekAminah M ethodist ESTIMATED GFR 2020-05-23 00:10:00 OrganAminah shepherd Met hodjohanna POC GLUCOSE 2020-05-22 20:53:00 Elvin Rajput Zoroastrian FIBRINOGEN 2020-05-22 20:10:00 OrganekAminah Met hodist BASIC METABOLIC PANEL 2020-05-22 20:10:00 Elvin Rajput Zoroastrian ESTIMATED GFR 2020-05-22 20:10:00 Elvin Rajput Zoroastrian LACTIC ACID LEVEL 2020-05-22 20:10:00 Elvin Rajput Zoroastrian HEPATITIS ACUTE PANEL 2020-05-22 19:45:00 Elvin Rajput Zoroastrian IONIZED CALCIUM 2020-05-22 18:05:00 OrganAminah shepherd Met hodist ARTERIAL BLOOD GAS 2020-05-22 18:00:00 Michelle Schmidt Zoroastrian ECG 12-LEAD 2020-05-22 17:56:11 OrganekAminah Met hodist PARTIAL THROMBOPLASTIN 2020-05-22 17:40:00 Aminah Og Zoroastrian TIME (PTT) PROTHROMBIN TIME WITH INR 2020-05-22 17:40:00 OrganAminah shepherd Zoroastrian BASIC METABOLIC PANEL 2020-05-22 17:18:00 Elvin Rajput Zoroastrian HEPATIC FUNCTION PANEL 2020-05-22 17:18:00 Elvin Rajput LACTIC ACID LEVEL 2020-05-22 17:18:00 Elvin Rajput Zoroastrian TROPONIN 2020-05-22 17:18:00 Elvin Rajput ESTIMATED GFR 2020-05-22 17:18:00 Elvin Rajput POC GLUCOSE 2020-05-22 16:58:00 Elvin Rajput PROTHROMBIN TIME WITH INR 2020-05-22 16:15:00 Elvin Rajput PARTIAL THROMBOPLASTIN 2020-05-22 16:15:00 Elvin Rajput Zoroastrian TIME (PTT) BLOOD CULTURE, AEROBIC & 2020-05-22 16:05:00 Aminah Og ANAEROBIC BASIC METABOLIC PANEL 2020-05-22 16:00:00 Aminah Og Zoroastrian ESTIMATED GFR 2020-05-22 16:00:00 Aminah Og Met hodist POC GLUCOSE 2020-05-22 16:00:00 Elvin Rajput BLOOD CULTURE, AEROBIC & 2020-05-22 15:55:00 Aminah Og ANAEROBIC ECG 12-LEAD 2020-05-22 12:51:06 Aminah Og Met hodist POC GLUCOSE 2020-05-22 12:17:00 Elvin Rajput ARTERIAL BLOOD GAS 2020-05-22 12:10:00 Michelle Schmidt Zoroastrian TROPONIN 2020-05-22 12:00:00 Michelle Schmidt Zoroastrian LACTIC ACID LEVEL 2020-05-22 12:00:00 Michelle Schmidt Zoroastrian ECG 12-LEAD 2020-05-22 08:34:16 Aminah Og Met hodist ECG 12-LEAD 2020-05-22 08:29:22 Elvin Rajput LACTIC ACID LEVEL 2020-05-22 08:05:00 Aminah Og M ethodist TROPONIN 2020-05-22 08:05:00 Aminah Og Met hodist B NATRIURETIC PEPTIDE 2020-05-22 08:05:00 Aminah Og Zoroastrian PROTHROMBIN TIME WITH INR 2020-05-22 08:05:00 OrganekAminah Zoroastrian PARTIAL THROMBOPLASTIN 2020-05-22 08:05:00 OrganekAminah Zoroastrian TIME (PTT) FIBRINOGEN 2020-05-22 08:05:00 Organek, Aminah Reilly Met hodist HC COMPLETE BLD COUNT 2020-05-22 08:05:00 OrganekAminah on Zoroastrian W/AUTO DIFF BASIC METABOLIC PANEL 2020-05-22 08:05:00 Organek, Aminah Valencia on Zoroastrian IONIZED CALCIUM 2020-05-22 08:05:00 Organek, Aminah Reilly Met hodist MAGNESIUM LEVEL 2020-05-22 08:05:00 Organek, Aminah Reilly Met hodist ESTIMATED GFR 2020-05-22 08:05:00 Organek, Aminah Reilly Met hodist POC GLUCOSE 2020-05-22 07:52:00 Elvin Rajput ARTERIAL BLOOD GAS 2020-05-22 07:26:00 Michelle Schmidt LACTIC ACID LEVEL 2020-05-22 06:00:00 Michelle Schmidt Zoroastrian TROPONIN 2020-05-22 06:00:00 Michelle Schmidt Zoroastrian [place] INSERT 2020-05-22 05:27:16 Michelle Schmidt Zoroastrian CATH,ART,PERCUT,SHORTTERM VENOUS BLOOD GAS 2020-05-22 05:00:00 Michelle Schmidt on Zoroastrian POC GLUCOSE 2020-05-22 04:10:00 Elvin Rajput ARTERIAL BLOOD GAS 2020-05-22 03:36:00 Elvin Rajput on Zoroastrian ARTERIAL BLOOD GAS 2020-05-22 02:25:00 Michelle Schmidt TTE COMPLETE, W CONTRAST, 2020-05-22 02:15:00 Michelle Schmidt Ma W DOPPLER ([id number]) XR CHEST 1 VW PORTABLE 2020-05-21 23:40:26 Nieves Lazcano Zoroastrian Candy HC CVL NON-TUNNELED 2020-05-21 23:30:00 Pratima Salomon Zoroastrian INSERT 5YRS OR > HC COMPLETE BLD COUNT 2020-05-21 23:22:00 Michelle Schmidt Zoroastrian W/AUTO DIFF FIBRINOGEN 2020-05-21 23:22:00 Michelle Schmidt Zoroastrian PARTIAL THROMBOPLASTIN 2020-05-21 23:22:00 Michelle Schmidt Zoroastrian TIME (PTT) PROTHROMBIN TIME WITH INR 2020-05-21 23:22:00 Michelle Schmidt Ma Zoroastrian TROPONIN 2020-05-21 23:22:00 Michelle Schmidt Zoroastrian B NATRIURETIC PEPTIDE 2020-05-21 23:22:00 Michelle Schmidt COMPREHENSIVE METABOLIC 2020-05-21 23:07:00 Michelle Schmidt Zoroastrian PANEL IONIZED CALCIUM 2020-05-21 23:07:00 Michelle Schmidt Zoroastrian LACTIC ACID LEVEL 2020-05-21 23:07:00 Michelle Schmidt Zoroastrian MAGNESIUM LEVEL 2020-05-21 23:07:00 Michelle Schmidt Zoroastrian PHOSPHORUS LEVEL 2020-05-21 23:07:00 Michelle Schmidt on Zoroastrian ESTIMATED GFR 2020-05-21 23:07:00 Michelle Schmidt Zoroastrian POC GLUCOSE 2020-05-21 22:55:00 Elvin Rajput Zoroastrian ARTERIAL BLOOD GAS 2020-05-21 22:00:00 Nieves Lazcano Zoroastrian Candy HC COMPLETE BLD COUNT 2020-05-21 21:53:00 Nieves Lazcano on Zoroastrian W/AUTO DIFF Candy COMPREHENSIVE METABOLIC 2020-05-21 21:53:00 Nieves Lazcano Zoroastrian PANEL Candy MAGNESIUM LEVEL 2020-05-21 21:53:00 Nieves Lazcano Met hodist Candy PHOSPHORUS LEVEL 2020-05-21 21:53:00 Nieves Lazcano Me thodist Candy LACTIC ACID LEVEL 2020-05-21 21:53:00 Nieves Lazcano M ethodist Candy IONIZED CALCIUM 2020-05-21 21:53:00 ZachcameronNieves lino Met ratna Gupta TROPONIN 2020-05-21 21:53:00 MatthewNieves delgado Met ratna Gupta SMEAR REVIEW 2020-05-21 21:53:00 SumeetNieves lino Met ratna Gupta PROTHROMBIN TIME WITH INR 2020-05-21 21:50:00 Elvin Rajput PARTIAL THROMBOPLASTIN 2020-05-21 21:50:00 Elvin Rajput TIME (PTT) TYPE AND SCREEN 2020-05-21 21:50:00 Elvin Rajput PREPARE RBC 2020-05-21 21:50:00 Michelle Schmidt PREPARE FRESH FROZEN 2020-05-21 21:50:00 Michelle Schmidt PLASMA ECG 12-LEAD 2020-05-21 21:35:38 Matthewrosiejaneth Nieves Reilly Met ratna Gupta POC GLUCOSE 2020-05-21 21:32:00 Elvin Rajput POC GLUCOSE 2020-05-21 19:49:00 Elvin Rajput POC GLUCOSE 2020-05-21 17:29:00 Elvin Rajput POC GLUCOSE 2020-05-21 10:27:00 Elvin Rajput POC GLUCOSE 2020-05-21 07:59:00 Elvin Rajput HC COMPLETE BLD COUNT 2020-05-21 06:35:00 Elvin Rajput W/AUTO DIFF BASIC METABOLIC PANEL 2020-05-21 06:35:00 Elvin Rajput LIPID PANEL 2020-05-21 06:35:00 Elvin Rajput THYROID STIMULATING 2020-05-21 06:35:00 Elvin Rajput HORMONE T4, FREE 2020-05-21 06:35:00 Elvin Rajput TROPONIN 2020-05-21 06:35:00 Elvin Rajput ESTIMATED GFR 2020-05-21 06:35:00 Elvin Rajput POC GLUCOSE 2020-05-21 05:44:00 Elvin Rajput POC GLUCOSE 2020-05-21 05:13:00 Elvin Rajput Zoroastrian SARS-COV2/RT-PCR ([facility] & 2020-03-29 21:15:00 [facility] LABS) [facility] Plan of Care Planned Activity Planned Date Details Comments Source Future Scheduled 2020-04-22 INFLUENZA VACCINE [place] [facility] 00:00:00 [code = INFLUENZA VACCINE] Future Scheduled 2003 65+ PNEUMOCOCCAL [place] [facility] Test 00:00:00 VACCINE (1 of 1 - PPSV23) [code = 65+ PNEUMOCOCCAL VACCINE (1 of 1 - PPSV23)] Future Scheduled 1988 SHINGLES VACCINES (#1) [place] [facility] 00:00:00 [code = SHINGLES VACCINES (#1)] Future Scheduled 1948 DIABETES: RETINAL EYE [place] [facility] 00:00:00 EXAM [code = DIABETES: RETINAL EYE EXAM] Future Scheduled 1948 DIABETIC FOOT EXAM [place] [facility] 00:00:00 [code = DIABETIC FOOT EXAM] Future Scheduled 1950 URINE MICROALBUMIN [place] [facility] 00:00:00 [code = URINE MICROALBUMIN] Encounters Start End Encounter Admission Attending Care Care Encounter Source Date/Time Date/Time Type Type Clinicians Facility Department ID 2020-07-17 2020-07-17 Office [facility] [id number] 36 13:10:28 13:57:04 Visit Amanda Cantu [id number] Dona [id number] Wu [id number] [facility]9 [facility] 2020-05-21 2020-06-06 Inpatient ATIYA [facility] [id number] [place] 00:00:00 00:00:00 ELVIN Minaya Method i st Results Test Description Test Time Test Comments Results Result Comments Source Troponin 2020-06-06 14:41:54 Test Item Value Reference Range Interpretation Comme nts Troponin 0.134 0-0.04 H In patients airam pected of having a myocardial infarction, along with all other (test ng/mL appropriate cli nical measures and actions including ECG and other diagnostics as code = appropriate, me asure Ultra TnI at 0 hrs and at 3 hrs.Myocardial infarction VERY 08194-0) LIKELYThe 0 hr TnI level is > 0.10 ng/mL Petr cardial infarction LIKE LYThe 0 hr TnI level is > 0.04 ng/mL and 3 hr level is increased or decreased by at least 0.020 ng/mL Myocardi al infarction VERY UNLIKELYBoth the 0 hr and 3 hr TnI levels <= 0.04 ng/mL(within normal limits) OR 0 hr is > 0.04 ng/mL and 3 hr is increased OR decreased by less than 0.020 ng/mL Lab Abnorm Interpret al ation (test code = 81921-6) [facility] [id number] 11:38:10 Test Item Value Reference Range Interpretation Comments POC glucose (test code 213 mg/dL 65-99 H Opera tor Name: Brennon = [id number]) FamataDevice ID : [id number] able: [facility] Notified educational recruiter Interpretation Abnormal (test code = 29299-5) [facility] [id number] 05:26:26 Test Item Value Reference Range Interpretation Comments Sodium (test code = 140 135- 148 mEq/L 2951-2) Potassium (test code = 4.2 3.5- 5.0 mEq/L 2823-3) Chloride (test code = 93 98- 112 mEq/L L 5-0) CO2 (test code = 2028-05) 30 24- 31 mEq/L Anion gap (test code = 17@ANIO 7- 15 mEq/L H 58788-9) BUN (test code = 3094-0) 77 mg/dL 8-23 H Creatinine (test code = 1.74 mg/dL 0.5-0.9 H 2160-0) Glucose (test code = 88 mg/dL 65-99 5-7) Calcium (test code = 10.0 mg/dL 8.8-10.2 81602-3) Protein (test code = 7.4 g/dL 6.3-8.3 -[place] 2885-2) 4.6-7.0 g/dL1 week 4.4-7 .6 g/dL7 months-1y ear 5.1-7 .3 g/dL1-2 years 5.6-7 .5 g/dL>3 years 6.0-8 .0 g/gG10-989 6.3-8 .3 g/dL Albumin (test code = 4.4 g/dL 3.5-5 1750-7) A/G ratio (test code = 1.5 0.7-3.8 175-0) Alkaline phosphatase 98 U/L 35-104 (test code = 6768-6) AST (test code = 1920-8) 47 U/L 10-35 H ALT (test code = 1742-6) 62 U/L 5-50 H Total bilirubin (test 1.3 mg/dL 0-1.2 H code = 1974-) Lab Interpretation (test Abnormal code = 01997-8) [facility] MethodistMagnesium [id number] 05:26:26 Test Item Value Reference Range Interpretation Comments Magnesium (test code = 11882-8) 1.9 mg/dL 1.6-2.4 [place] MethodistEstimated [id number] 05:26:26 Test Item Value Reference Range Interpretation Comments Estimated GFR (test 27 mL/min/1.73 m2 Fritz Schuler orzoie Units code = 5488) InterpretationG 1 >=90 Paty l or highG2 60-89 Mildly decrease dG3a 45-59 Mil dly to moderately decr dbvnfH0k 30-44 Moderately to s everely decreasedG4 15-29 Severe ly decreasedG5 <15 Kidney renée lureThe eGFR was calcul ated using the Chron Kidney Disease Epidemiology Collaboration ( CKD-EPI) equation. Interpretation is based on recommendati ons of the National [facility]-Kidn ey Disease Outcome s Quality Initiat judi (NKF-KDOQI) pub lished in 2013. Lab Interpretation Abnormal (test code = 11967-3) [facility] MethodistPhosphorus [id number] 05:26:24 Test Item Value Reference Range Interpretation Comments Phosphorus (test code = 2777-1) 2.9 mg/dL 2.4-4.5 [facility] AragonistCBC with platelet and [id number] 04:59:46 Test Item Value Reference Range Interpretation Comments WBC (test code = 48085-7) 8.46 4.50- 11.00 k/uL RBC (test code = 10395-3) 3.92 m/uL 4.2-5.5 L HGB (test code = 718-7) 10.5 g/dL 12-16 L HCT (test code = 4544-3) 32.6 % 37-47 L MCV (test code = 787-2) 83.2 fL 82-100 MCH (test code = 785-6) 26.8 pg 27-34 L MCHC (test code = 786-4) 32.2 g/dL 31-37 RDW - SD (test code = 50.7 fL 37-55 99763-4) MPV (test code = 51478-0) 11.5 fL 8.8-13.2 Platelet count (test code 299 150- 400 k/uL = 86865-7) Nucleated RBC (test code 0.00 /100 WBC = 22912-0) Neutrophils (test code = 76.2 % 39-69 H 38905-7) Lymphocytes (test code = 10.2 % 25-45 L 56680-4) Monocytes (test code = 8.4 % 0-10 53014-6) Eosinophils (test code = 3.8 % 0-5 71161-7) Basophils (test code = 0.8 % 0-1 52418-6) Immature granulocytes 0.6 % 0-1 "Immat ure (test code = 57131-1) granul ocytes" (promyelocytes, myelocytes, metamyelocytes) Lab Interpretation (test Abnormal code = 31262-2) [facility] AragonistBasic metabolic [id number] 07:13:08 Test Item Value Reference Range Interpretation Comments Sodium (test code = 2951-2) 135 135- 148 mEq/L Potassium (test code = 2823-3) 4.6 3.5- 5.0 mEq/L Chloride (test code = 2075-0) 90 98- 112 mEq/L L CO2 (test code = 2027-9) 26 24- 31 mEq/L Anion gap (test code = 82792-1) 19@ANIO 7- 15 mEq/L H BUN (test code = 3094-0) 84 mg/dL 8-23 H Creatinine (test code = 2160-0) 1.68 mg/dL 0.5-0.9 H Glucose (test code = 2345-7) 96 mg/dL 65-99 Calcium (test code = 96500-8) 9.6 mg/dL 8.8-10.2 Lab Interpretation (test code = Abnormal 44886-3) [facility] MethodistHepatic function [id number] 07:54:39 Test Item Value Reference Range Interpretation Comments Albumin (test code = 3.9 g/dL 3.5-5 1-7) Total bilirubin (test 1.3 mg/dL 0-1.2 H code = 1974-) Bilirubin direct (test 0.7 mg/dL 0-0.3 H code = 1968-03) Alkaline phosphatase 81 U/L 35-104 (test code = 6768-6) Protein (test code = 6.5 g/dL 6.3-8.3 -[place] 2885-2) 4.6-7.0 g /dL1 week 4.4-7.6 g/dL 7 months-1year 5.1-7.3 g/dL 1-2 years 5.6-7.5 g/dL>3 years 6.0-8.0 g/gW83-292 6.3-8. 3 g/dL ALT (test code = 1742-6) 68 U/L 5-50 H AST (test code = 1920-8) 57 U/L 10-35 H Lab Interpretation (test Abnormal code = 80568-0) [facility] MethodistDigoxin [id number] 07:54:39 Test Item Value Reference Range Interpretation Comments Digoxin (test code = 1.0 ng/mL 0.8-2 For phillip id Digoxin 70418-2) results, at [address] 6 hours should el apse between time of last dose and collec tion of blood.Otherwise , result may be false high.Therapeuti c Range:0.8 - 2.0 ng/mL [facility] MethodistPartial thromboplastin time, [id number] 07:49:07 Test Item Value Reference Range Interpretation Comments PTT (test code = 30.7 23.0- 36.0 [place] [address]-0) unfractionated heparin is61.0-112.0 se conds which corresponds to Anti-Xa0.3-0.7 U/ml. [facility] MethodistUrinalysis screen and microscopy, with reflex to culture 2020-06-02 03:36:27 Test Item Value Reference Range Interpretation Comments Specimen site (test code = Random void 5629358) Color, UA (test code = 5778-6) Straw Appearance, UA (test code = Clear 5767-9) Specific gravity, UA (test code = 1.008 1.001-1.035 5811-5) pH, UA (test code = 5803-2) 5.0 5.0-8.5 Protein, UA (test code = 04046-9) 1+ Negative A Glucose, UA (test code = 61021-1) Negative Negative Ketones, UA (test code = 2514-8) Negative Negative Bilirubin, UA (test code = Negative Negative 5770-3) Blood, UA (test code = 5794-3) Negative Negative Nitrite, UA (test code = 5802-4) Negative Negative Urobilinogen, UA (test code = <2.0 <2.0 99540-0) Leukocyte esterase, UA (test code Negative Negative = 5799-2) Epithelial cells, UA (test code = <1 /HPF 5787-7) Round epithelial cells, UA (test <1 0- 1 /HPF code = 37420-4) WBC, UA (test code = 5821-4) 1 0- 4 /HPF RBC, UA (test code = 84914-2) None seen 0- 5 /HPF Bacteria, UA (test code = None seen None seen 22582-6) Yeast, UA (test code = 55285-1) Few A Yeast with pseudohyphae, UA (test None seen code = 35397-2) Lab Interpretation (test code = Abnormal 89697-9) [facility] MethodistUrine [id number] 03:32:20 Test Item Value Reference Range Interpretation Comments Urine culture (test SEE COMMENT Bacteriu mahin screen code = 9875442) negative. [facility] MethodistCOVID-19 qualitative [id number] 02:33:16 Test Item Value Reference Range Interpretation Comments Interpretation (test Negative results do code = 4300699) not preclude 2019-nCoV infection and should not be used as the sole basis for treatment or other patient management decisions. Negative results must be combined with clinical observations, patient history, and epidemiological information. COVID-19 qualitative Not-Detected Not-Detected PCR result (test code = 83209-2) COVID-19 qualitative See link below for C ase Number: PCR (test code = PDF Lab Report [id number]) [facility] MethodistB natriuretic [id number] 01:20:28 Test Item Value Reference Range Interpretation Comments BNP (test code = >5000 0-100 [place] [address]-8) BNP most likely represents rece nt infusionof patrica mbinant BNP. For monito ring, because of the short half-life of BN P (20 minutes), measu rements taken 2 hours aftercessation of treatment again reflects the le charlie of endogenousBNP. Lab Interpretation Abnormal (test code = 27525-0) [facility] MethodistAnti Xa, [id number] 16:45:18 Test Item Value Reference Range Interpretation Comments Anti Xa, unfractionated Footnote 0.3-0.7 Ther apeutic Range: (test code = 3274-8) 0.30 - 0.70 U/mLUnable to p erform testing, specim en is QNS_. Recollec t requested for X AUFH (tests). [address] [place]/A8 (name/location) notified by Adan _ (tech ID) at 1 7:00 05/28/2020 (date/time). C redit issued. [facility] MethodistECG 12 [id number] 22:25:35 Test Item Value Reference Range Interpretation Comments Ventricular rate (test 90 code = 253) Atrial rate (test code 68 = 255) QRSD interval (test 108 code = 260) QT interval (test code 390 = 264) QTC interval (test 477 code = 265) QRS axis 1 (test code 23 = 268) T wave axis (test code 96 = 270) EKG impression (test Atrial fibrillation code = 273) with premature ventricular or aberrantly conducted complexes-Anteroseptal infarct (cited on or before 28-MAY-2020)-Abnormal ECG-In automated comparison with ECG of 25-MAY-2020 09:22,-No significant change was found- [place] MethodistIonized [id number] 05:33:23 Test Item Value Reference Range Interpretation Comments pH (test code = 2753-2) 7.56 Ionized calcium (test code = 1.02 mmol/L 1.11-1.32 L ) Lab Interpretation (test code = Abnormal 89105-5) [place] MethodistBlood culture, aerobic & [id number] 19:03:03 Test Item Value Reference Range Interpretation Comments Blood culture No growth Specimen isolate (test after 5 days InformationSpe cimen code = 600-7) of Source: BloodS pecimen incubation. Site: Wrist, Le ft [place] MethodistProthrombin time with [id number] 01:18:04 Test Item Value Reference Range Interpretation Comments Prothrombin time (test 20.3 11.5- 14.5 sec H code = 5902-2) INR (test code = 1.7 [facility]-9) Normalized Rati o (INR) is a therapeuti c monitoring tool for patients who ar e stable on oral anticoagulant t herapy. An INR of 2.0-3 .0 is suggested for d eep vein thrombosis/pulm onary embolism. Lab Interpretation Abnormal (test code = 50251-1) [place] MethodistXR Chest 1 Vw [id number] 10:52:56Hm Interface, Radiology Results - 05/26/2020 10:56 AM CDTEXAMINATION: XR CHEST 1 VW PORTABLECLINICAL HISTORY: 79 years Female ICU pt unstable or clinical worseningCOMPARISON: MayIMPRESSION:Lines and tubes: A single lead AICD is seen in stable position.Heart and mediastinum:Cardiomediastinal silhouette contour is enlarged and stable. There are calcifications of the vessels.Lungs and pleura: There are no new areas of focal consolidation. Lung airspaces appear stable from prior examination although volume status may be increased from prior. Likely small bilateral pleural effusions. There is no evidence of pneumothorax.Bones: No acute abnormality. Median sternotomy wires ap pear stable without evidence of fracture or migration.[facility]-[id number] and approved by residential instructor/fellow: Hernan Turcios M.D.I, Connor Alarcon MD, personally reviewed the images and resident's/fellow's findings and agree with the final report.[place] MethodistHemoglobin [id number] 10:15:18 Test Item Value Reference Range Interpretation Comments Hemoglobin A1C (test 10.7 % 4-5.6 H HbA1c c utoffs for code = 37026-3) diagnosing diabetes:4.0% - 5.6% = normal5.7% - 6.4% = increased risk for diabetes (prediabetes)9> =6.5% = ljofjviv6Tnxr s for glycemic contro l (ADA 2016)< 7.0% Ta rget for non adults with deangelo betes. More or less stringent targe ts may be appropriate for individual tod ents. <7.5% Target for Children and adolescents wit h type 1 diabetes. Lab Interpretation (test Abnormal code = 29980-6) [place] MethodistArterial blood [id number] 00:55:36 Test Item Value Reference Range Interpretation Comments pH, arterial (test code = 2744-1) 7.46 7.35-7.45 H pCO2, arterial (test code = 41 35- 45 mmHg 2018-8) pO2, arterial (test code = 82 80- 90 mmHg 2703-7) Bicarbonate, arterial (test code 28.1 mmol/L 21-28 H = 1960-4) Base excess, arterial (test code 4 -2 - 2 mEq-L H = 1925-7) O2 saturation, arterial (test 98 % 95-100 code = 2708-6) Lab Interpretation (test code = Abnormal 89931-7) [place] MethodistIonized calcium, [id number] 00:55:36 Test Item Value Reference Range Interpretation Comments Ionized calcium, arterial (test 1.10 mmol/L 1.11-1.32 L code = 09224-9) Lab Interpretation (test code = Abnormal 91878-9) [facility] [id number] 00:53:48 Test Item Value Reference Range Interpretation Comments GGT (test code = 2324-2) 76 U/L 0-39 H Lab Interpretation (test code = Abnormal 00940-9) [facility]Vancomycin level, [id number] 00:52:02 Test Item Value Reference Range Interpretation Comments Vancomycin, random (test code = 16.0 ug/mL 60971-8) [facility]Venous blood [id number] 00:28:29 Test Item Value Reference Range Interpretation Comments pH, venous (test code = 2746-6) 7.40 7.32-7.42 pCO2, venous (test code = 2020-4) 45 45- 51 mmHg pO2, venous (test code = 2705-2) 39 25- 40 mmHg Base excess, venous (test code = 3 meq/L -2-2 H 1927-3) O2 saturation, venous (test code 71 % 40-70 H = 2711-0) Bicarbonate, venous (test code = 27.4 mmol/L 21-28 57445-2) Lab Interpretation (test code = Abnormal 69189-6) [facility]Sodium [id number] 17:22:46 Test Item Value Reference Range Interpretation Comments Sodium (test code = 2951-2) 131 135- 148 mEq/L L Lab Interpretation (test code = Abnormal 73044-9) [facility]Creatinine [id number] 09:08:26 Test Item Value Reference Range Interpretation Comments Creatinine (test code = 2160-0) 3.25 mg/dL 0.5-0.9 H Lab Interpretation (test code = Abnormal 49944-4) [facility] MethodistPotassium [id number] 09:08:26 Test Item Value Reference Range Interpretation Comments Potassium (test code = 2823-3) 3.3 3.5- 5.0 mEq/L L Lab Interpretation (test code = Abnormal 14811-1) [facility] MethodistBUN [id number] 09:08:26 Test Item Value Reference Range Interpretation Comments BUN (test code = 3094-0) 47 mg/dL 8-23 H Lab Interpretation (test code = Abnormal 48813-1) [facility] ArsospdllUfxwfjvnbp8896-10-19 01:22:50 Test Item Value Reference Range Interpretation Comments Fibrinogen (test code = 59254-3) 265 mg/dL 200-450 [facility] MethodistLactic acid [id number] 01:16:27 Test Item Value Reference Range Interpretation Comments Lactic acid (test code = 00998-2) 2.0 mmol/L 0.5-2.2 Tommie Sterling [id number] 12:16:06Hm Interface, Radiology Results 05/23/2020 12:19 PM CDTExamination: US HEPATICClinical history: Shock liver and abn biliComparison: NoneImpression: Transverse and longitudinal sonographic images were obtained through the liver/right upper quadrant.1.Cholecystectomy. The common duct is within normal limits at 0.4 cm. There is no intrapelvic biliary dilation.2.The liver is mildly enlarged at16.6 cm maximum span, though otherwise demonstrates a normal homogeneous sonographic appearance. There is trace perihepatic ascites.3.Hepatopedal flow is confirmed within the main portal vein.4.A smallpleural effusion is suspected.[facility]-[id number] ZoroastrianUS [id number] 11:09:18Hm Interface, Radiology Results 05/23/2020 11:12 AM CDTEXAMINATION: US RENALCLINICAL HISTORY: Renal failure chronic (kidney disease), patient ANURICCOMPARISON: June 16, 2019IMPRESSION: The right kidney measures 9.6 x 5.1 x 4.7.The left kidney measures 10.1 x 5.7 x 5.1.The kidneys are normal in size and echogenicity. There is no evidence of renal mass, calculi, or hydronephrosis.A catheter is present within a nondistended bladder.[facility]-[id number] MethodistHepatitis acute [id number] 21:25:25 Test Item Value Reference Range Interpretation Comments Hepatitis A IgM (test Non-reactive Non-reactive code = 18016-8) Hepatitis B core IgM Non-reactive Non-reactive (test code = 17441-8) Hepatitis B surface Ag Non-reactive Non-reactive (test code = 5195-3) Hepatitis C Ab (test Non-reactive Non-reactive code = 32753-7) BERNADETTE (test code = BERNADETTE) LACID results called to and read back by BRE PINTO(name/location) at 05/22/2020 20:45 (date/time) by PC. [facility] MethodistTransthoracic Echocardiogram Complete, (w Contrast, Strain and 3D if needed)2020-05-22 10:29:00Interface, Radiology Results In - 05/22/2020 10:29 AM CDT Echocardiography Report [id number] [address] Pat.Name: NASIR DAS.ID: [id number].Date: 05/22/2020 Refer.MD: ELVIN RAJPUT MD Exam Time: 12:55:00 AM Study Type:Routine Echo Height: 68in Weight: 161lb BSA: 1.87 m2 Age: 1 1940,79Y Sex: FEMALE BP: 150/87 HR: 53 bpm Sonogrphr: Jailyn Torres RDCS, RVT Pat. Stat.:Inpatient Room: [place] [address] Study Status:Final Echo Event ID:[id number] Order ID: [id number] Reason forStudy:Acute hemo instability with hypotension (sys<100mmHg)History / Clinical:Coronary Artery Disease, Diabetes, Hypertension,Valvular Heart Disease; Aortic StenosisProcedures: 2D Echo, Colorflow Doppler, Portable, Stat, IntravenousDefinity ContrastRace: C SUMMARY: LV size is mildly enlarged. LV EF isseverely depressed.Global hypokinesis.EF = 23%.RV size is enlarged. RV systolic function is moderately depressed.Diastolic dysfunction Grade III (Severe): Impaired relaxation withrestrictive LV filling pressures.Estimated PA systolic pressure is 40-45 mmHg, assuming a mean RAP of15-20 mmHg.Normal prosthetic aortic valve velocity and gradient. FINDINGS: LV: LV size is mildly enlarged. LV EF is severely depressed. EF = 23%. Global hypokinesis.RV: RV size is enlarged. RV systolic function is moderately depressed. LA: LA volume is severely enlarged.RA: RA volume is severely enlarged.AO: Aortic root diameter is normal.CORTEZ: No pericardial effusion.AV: Bioprosthetic aortic valve. Normal prosthetic valve velocity and gradient. Surgical Prosthetic AV Doppler velocity index is 0.56 (normal>0.25).MV: No structural MV abnormalities noted. Mild mitral regurgitation. PV: No structural PV abnormalities noted. Mild pulmonic regurgitation. TV: No structural TV abnormalities noted. Mild to moderate tricuspid regurgitationDias: Diastolic dysfunction Grade III (Severe): Impaired relaxation with restrictive LV filling pressures.Other: Estimated PA systolic pressure is 40-45 mmHg, assuming a meanRAP of 15-20 mmHg. MEASUREMENTS: 2DParasternal Long Lyle Ao An 1.6 cm LVPWd 1.5 cm Ao Rtd 3.5 cm Index 1.9 cm/m2 LA Ds 4.5 cm IVSd 1.1 cm RWT 0.55 LVIDd 5.4 cm Index 2.9 cm/m2 LV Mass 289 g (87-129)* LVIDs 5.2 cm LVM Index 154 g/m2 LV%fs 3.7 % LVOT 1.7 cmLV EF SinglePlane LVEDV 151 ml (59-136)* Index 81 ml/m2 LV EF 23 % (55-75)* LVESV 117 ml Index 62 ml/m2 LV SV 34 ml Left Ventricle LV CO 1.8 l/min LV CI 0.98 l/m/m2LA Sng Plane LA Area 26 cm2 (8.8-23.4)* LA Vol 89 ml Index 48 ml/m2 LA LngAx 6.5 cm RA Sng Plane RA Vol 104 ml Index 56 ml/m2 RA LngAx 6.1 cm RA Area 27 cm2 (8.3-19.5)*LVOT LVOT Area 2.3 cm2 DOPPLERAV AV For Flow/ROMIE AV pkVel 175 cm/s (100-170)* AV AC/ET 0.3 AV mnVel 105 cm/s AV TVI 32 cm AV pkPG 12 mmHg AVpkAcRt 2475 cm/s2 AV Mean G 5.7 mmHg AV DeRt 578 cm/s2 AV ET 303 msec AV AC 92 msec (83-118)Aortic Valve AV DI 0.56 AV Area 1.3 cm2 (3-5)*AV LVOT For Flow LVOT TVI 18 cm LVOTmnPG 2.6 mmHg LVOTpkVel 114 cm/s HR 47 bpm LVOTpkPG 5.2 mmHg LVOT LVOT SV 41 ml LVOT CO 1.9 l/min SVi 22 ml/m2 LVOT CI 1 l/m/m2TV Pressure Gradient TV PkVel 275 cm/s TV PG 30 mmHg Signed 05/22/2020 10:29 Jt Reddy Zoroastrian Smear [id number] 05:29:43 Test Item Value Reference Range Interpretation Comments Platelet slide review (test code = Decreased A 05068-0) Anisocytosis (test code = 702-1) Moderate Polychromasia (test code = Moderate 26551-8) Ovalocytes (test code = 774-0) Moderate Ramses cells (test code = 7790-9) Many A Acanthocytes (test code = 7789-1) Occasional Enlarged platelets (test code = Moderate A 46390-0) Lab Interpretation (test code = Abnormal 87015-9) [facility] MethodistArterial Line [id number] 05:27:16Michelle Schmidt NP 05/22/2020 5:28 AMArterial Line InsertionDate/Time: 05/22/2020 5:27 AMPerformed by: Michelle Schmidt NPAuthorized by: Michelle Schmidt NP Consent: Consent obtained: Verbal Consent given by: Patient Risks discussed: Bleeding, infection, pain, ischemia and repeat procedureIndications: Indications: hemodynamic monitoring and multiple ABGs Pre-proceduredetails: Skin preparation: 2% ChlorhexidineAnesthesia (see MAR for exact dosages): Anesthesia method: Local infiltration Local anesthetic: Lidocaine 1% w/o epiProcedure details: Location: R femoral Needle gauge: 20 G Placement technique: Seldinger Ultrasound guidance: yes Number of attempts: 2 Transducer: waveform confirmed Post-procedure details: Post-procedure: Biopatch applied, sterile dressing applied, sutured and wrist guard applied CMS: Normal Patient tolerance of procedure: Tolerated well, no immediate complicationsClaremont ZoroastrianPrepare RBC, 4 [id number] 01:59:00 Test Item Value Reference Range Interpretation Comments Product name (test code Red Blood Cells -1, = 25) Leukored Unit number (test code [id number] = [id number]) Product code (test code T7515V51 = 3092) Dispense status (test Returned to not code = 24) transfused Blood expiration date (test code = 302) Blood type code (test 7300 code = 308) Blood type (test code = B POSITIVE 1314) Compatibility (test Compatible code = 6400) [facility] MethodistPrepare fresh frozen plasma, 3 Ebuvt4475-98-26 01:59:00 Test Item Value Reference Range Interpretation Comments Product name (test code = 25) Thawed Plasma Unit number (test code = [id number]) Product code (test code = 3092) [id number] Dispense status (test code = Transfused 24) Blood expiration date (test code = 302) Blood type code (test code = 7300 308) Blood type (test code = 1314) B POSITIVE Compatibility (test code = Not required 6400) [facility] MethodistCentral Line Wwfxgmshu7683-56-31 23:30:00Pratima Salomon NP 05/22/2020 5:23 AMCentral Line InsertionPerformed by: Pratima Salomon NPAuthorized by: Pratima Salomon NP Consent: Consent obtained: Emergent situationUniversal protocol: Immediately prior to procedure, a time out was called: yes Patient identity confirmed: Arm band and hospital-assigned identification numberPre-procedure details: Hand hygiene: Hand hygiene performed prior to insertion Sterile barrier technique: All elements of maximal sterile technique followed Skin preparation: 2% chlorhexidine Skin preparation agent: Skin preparation agent completely dried priorto procedure Sedation: Sedation Type: SystemicAnesthesia (see MAR for exact dosages): Anesthesia method: Local infiltration Local anesthetic: Lidocaine 1% w/o epiProcedure details: Catheter type: Quad lumen Catheter site: femoral vein Catheter Site Laterality: Left Patient position:Flat Ultrasound guidance: yes Number of attempts: 1 Successful placement: yes Post-procedure details: Post-procedure: Dressing applied and line sutured Assessment: Blood return through all ports and free fluid flow Patient tolerance of procedure: Tolerated well, no immediate complicationsClaremont MethodistType and screen 2020-05-21 23:07:00 Test Item Value Reference Range Interpretation Comments ABO grouping (test code = 883-9) B Rh type (test code = 41247-2) POS Antibody screen (gel) (test code = NEG 890-4) [facility] MethodistLipid [id number] 07:43:14 Test Item Value Reference Interpretation Comments Range Cholesterol (test 108 mg/dL <200 code = 2093-3) Triglycerides (test 67 mg/dL <150 code = 2571-8) HDL cholesterol 41 mg/dL >40 (test code = 2085-9) LDL cholesterol 58 mg/dL <100 Result obtai erna by direct (test code = 2089-1) LDL suzan surement Lipid panel SeeBelow Total Cholester ol (mg/dL) interpretation (test < 200 code = 75756-3) Desirable 200-239 Borderline -high >=240 Hi gh [...] in personswith high triglycerides ( >=200 mg/dL) Tommie GoldbergT4, xemo5710-37-09 07:41:22 Test Item Value Reference Range Interpretation Comments T4, free (test code = 3024-7) 1.5 ng/dL 0.9-1.7 Tommie GoldbergThyroid stimulating dvyhjdz0725-48-71 07:41:22 Test Item Value Reference Range Interpretation Comments TSH (test code = 3016-3) 5.93 0.27- 4.20 uIU/mL H Lab Interpretation (test code = Abnormal 04085-9) Tommie RosenbaumARS-CoV2/RT-PCR ([facility])2020-03-30 13:09:00 Test Item Value Reference Range Interpretation Comments SARS-COV2/RT-PCR Negative Not Detected, (test code = Negative 47655-5) SARS-COV-2 [facility] PERFORMING LAB (test code = 74026-2) BERNADETTE (test code = Negative result for this BERNADETTE) test determines that SARS-CoV-2 RNA was not [...] of the Act. Fact Sheet for Healthcare Providers:https://www.[employer]/sites/default/f michele/product/documents/F act_Sheet_HC_Providers_L wrt_HNBI-GxX-9.pdf Fact Sheet for Healthcare Patients:https://www.[employer]/sites/default/fi les/product/documents/Fa ct_Sheet_Patients_Lyra_S ARS-CoV-2.pdf Performing Laboratory:[facility] [place] [address] [facility])2020-03-30 13:09:00 Test Item Value Reference Range Interpretation Comments SARS-COV2/RT-PCR (test code = Negative Not Detected, Negative 2752306) SARS-COV-2 PERFORMING LAB [facility] (test code = 4472819) Negative result for this test determines that [...] 564(g) of the Act.Fact Sheet for Healthcare Providers:https://www.[employer]/sites/default/files/product/documents/Fact_Shee d_AW_Akpgrphdu_Eihk_XNDO-VoX-5.pdfFact Sheet for Healthcare Patients:https://www.[employer]/sites/default/files/product/ documents/Ztrh_Dknmc_Dfemdfqq_Hckz_IWII-IfT-3.pdfPerforming Laboratory:[facility] [place] [address]
--- OUTSIDE RECORDS SUMMARY | 2020-07-18 10:43 | XMS REPORT | Summary of Care ---
:1940 Author Organization [facility] - Health Address [address] [place] [address] Care Team Providers Name Role Phone HardikEfra sanchez Primary Care Provider Reason for Visit Reason Comments Follow-up LT Hip IM Nail Encounter Details Date Type Department Care Team Description 06/30/2020 Office Visit [facility] Ceasar Lynch MD [address] [place] [address] History of Orthopaedic Surgery- Ajit Brantley, ELMA [address] [place] [address] hemiarthroplasty of right [place] hip (Primary Dx) [address] [place] [address] Allergies Active Allergy Reactions Severity Noted Date [...] Body Mass Index 25.06 09/03/2016 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 Sandhu in [place], I saw her in the rehabilitation at [facility] she lives in this area and [place] and wanted to follow up with us instead of driving all the way to [place] for all of her appointments the date of surgery was approximately 2 weeks ago.She staying at [facility] and they had x-rays done there [...] file Gets together: Not on file Attends orthodox service: Not on file Active member of [...] Type / Group HUMANA - HUMANA CHOICE [id number] 2017-Presen Medicare Adv MANAGED t PPO MEDICARE documented as of this encounter"
--- NOTE | 2020-07-18 10:44 | RAD REPORT ---
EXAM DESCRIPTION: CT - Head Brain Wo Cont - 07/18/2020 10:37 am CLINICAL HISTORY: Dizziness;Mental status change, found on the floor unresponsive COMPARISON: Head Brain Wo Cont dated 02/28/2020 TECHNIQUE: Axial 5 mm thick images of the head were obtained without IV contrast. All CT scans are performed using dose optimization technique as appropriate and may include automated exposure control or mA/KV adjustment according to patient size. FINDINGS: No intracranial hemorrhage, mass, edema or shift of mid-line structures. No acute cortical based infarction. No cortical edema or sulcal effacement. Moderate severity atrophy present similar to comparison. Ventricles are in proportion to volume loss. Old infarction changes are present in the left frontal lobe and right frontoparietal junction. Dense arterial tree calcifications are present. Overall intracranial findings are stable from February 27 examination. Mastoid air cells and visualized portions of the paranasal sinuses are clear. No acute bony findings. IMPRESSION: Atrophy, chronic ischemic change and old infarction changes are present similar to February 2020. No acute intracranial findings.
--- OUTSIDE RECORDS SUMMARY | 2020-07-18 10:47 | XMS REPORT | Summary of Care ---
:1940 Author Organization [facility] - Health Address [address] [place] [address] Care Team Providers Name Role Phone Efra Dye Primary Care Provider Ramon Shaw DO Washer Assembler Reason for Visit Reason Comments Transition Of Care Encounter Details Date Type Department Care Team Description 07/17/2020 Transition of Care [facility] Bobbi Dunbar, Transition Of Care [facility], [place] RN [phone] Allergies Active Allergy Reactions Severity Noted Date Comments Codeine Hallucinations 06/20/2015 Morphine Hallucinations 06/20/2015 Penicillin Rash 06/20/2015 documented as of this encounter (statuses as of 07/17/2020) Medications Medication Sig Dispensed Refills Start Date [...] (PROZAC) 20 0 02/14/2016 Active mg capsule JANUVIA 50 mg tablet Take 50 mg by 3 02/07/2016 Active mouth daily. pantoprazole (PROTONIX) TAKE 1 TABLET BY 9 6 Active 40 mg EC tablet MOUTH ONCE A DAY primidone (MYSOLINE) 50 TAKE 1 TABLET BY 6 6 Active mg tablet MOUTH TWICE A DAY spironolactone 0 03/06/2016 Acti ve (ALDACTONE) 50 mg tablet DOMINIQUE SOLOSTAR 300 INJECT SUB 40 3 02/21/2016 Active unit/mL (1.5 mL) InPn UNITS EVERY DAY Blood Pressure Monitor Use as directed 1 Kit 0 03/13/2016 Active (BLOOD PRESSURE KIT) KitIndications: Essential hypertension furosemide 40 mg Take 2 tablets by 60 tablet 0 07/14/2020 Active tabletIndications: mouth 2 (two) Stage 3a chronic kidney times daily. 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, Acute on chronic combined systolic and diastolic congestive heart failure, Persistent atrial fibrillation, Acute cystitis without hematuria documented as of this encounter (statuses as of 07/17/2020) Active Problems Problem Noted Date Heart failure 07/08/2020 S/P AVR 07/08/2020 Coronary artery disease involving tetlin coronary tona ry of tetlin heart 07/08/2020 without angina pectoris ICD (implantable cardioverter-defibrillator) in place 07/08/2020 Persistent atrial fibrillation 07/08/2020 UTI (urinary tract infection) 07/08/2020 Troponin I above reference range 07/08/2020 Acute on chronic combined systolic and diastolic conge stive heart failure 07/07/2020 Hypertriglyceridemia 09/03/2016 Dyslipidemia 09/03/2016 Elevated TSH 09/03/2016 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 03/13/2016 HLD (hyperlipidemia) 03/13/2016 Metabolic syndrome X 03/13/2016 CKD (chronic kidney disease) stage 3, GFR 30-59 ml/min 03/13/2016 Essential hypertension 03/13/2016 documented as of this encounter (statuses as of 07/17/2020) Immunizations Name Administration Dates Next Due Influenza High Dose Quad 07/14/2020 Influenza Virus Vaccine 06/24/2019 Pneumococcal Polysaccharide, PPSV23 (PNEUMOVAX) 07/14/2020 documented as of this encounter Social History Tobacco Use Types Packs/Day Years [...] Assigned at Date Recorded Not on file COVID-19 Exposure Response Date Recorded In the last month, have you been in contact with No / Unsure 07/17/2020 1:09 PM CDT someone who was confirmed or suspected to have Coronavirus / COVID-19? documented as of this encounter Last Filed Vital Signs Not on filedocumented in this encounter Miscellaneous Notes Telephone Encounter - Bobbi Dunbar RN - 07/17/2020 1:09 PM CDTCalled number for child and unable to leave message with that phone. elephone Encounter - Bobbi uDnbar RN - 07/17/2020 1:08 PM CDT TRANSITIONAL CARE MANAGEMENT ASSESSMENT 07/17/2020 Lilian Avila [id number] Lilian Avila is a 79 year old /White female was admitted on 07/07/20 to [facility], ADC MED SURG. She was discharged on 07/14/20 with discharge disposition of RS- Referred/Discharged to Home Care. Mailbox full. Unable to leave message Admitting Physician: Pedro Patterson Discharge Diagnosis: 1. Acute on chronic combined systolic and diastolic congestive heart failure I50.43 428.43 428.0 2. Hyperglycemia R73.9 790.29 3. Lactic acidosis E87.2 276.2 4. New onset a-fib I48.91 427.31 5. Acute congestive heart failure, unspecified heart failure type I50.9 428.0 6. Lymphedema I89.0 457.1 7. Elevated troponin R77.8 790.6 8. Congestive heart failure, unspecified HF chronicity, unspecified heart failure type I50.9 428.0 9. Claudication of both lower extremities I73.9 443.9 10. Stage 3a chronic kidney disease N18.31 585.3 11. 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 Persistent atrial fibrillation I48.19 427.31 13. Acute cystitis without hematuria N30.00 595.0 No linked episodes TCM Ual-osiu-gh-face outreach documentation: Discharge Assessment Chart Assessed: 07/17/20 Future Appointments: Future Appointments Provider Department Dept Phone 07/17/2020 1:20 PM [facility] [phone] documented in this encounter Plan of Treatment Date Type Specialty Care Team Description 07/17/2020 Office Visit Cardiology Amanda Quick M [place] [address] [place] [address] 775 15 [phone] Health Maintenance Due Date Last Done Comments EYE EXAM 1948 Depression Screening 1950 FOOT EXAM 1956 DTaP,Tdap,and Td Vaccines (1 - 1957 Tdap) Zoster Recombinant Vaccine 1988 (SHINGRIX) (1 of 2) Medicare Wellness Visit 2003 Osteoporosis Screening 2003 LDL-C 09/03/2017 09/03/2016, 01/30/2016 HgA1C 01/05/2021 07/07/2020, 09/03/2016, 03/13/2016 URINE MICROALBUMIN 07/11/2021 07/11/2020 CREATININE (SERUM) 07/14/2021 07/14/2020, 07/13/2020, 07/12/2020, Additional history exists INFLUENZA VACCINE Completed 07/14/2020, 06/24/2019 PNEUMOCOCCAL VACCINES 65+ Completed 07/14/2020 documented as of this encounter Results Not on filedocumented in this encounter Insurance Payer Benefit Plan Subscriber ID Effective Dates Phone Address Type / Group HUMANA - HUMANA CHOICE [id number] 2017-Presen Medicare Adv MANAGED t PPO MEDICARE documented as of this encounter
--- OUTSIDE RECORDS SUMMARY | 2020-07-18 10:47 | XMS REPORT | Summary of Care ---
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 Persistent atrial fibrillation Acute cystitis without hematuria Lucina Salomon MD [place], [place] Procedures Discharge Follow-up: PCP EFRA AVILA; 1 Week [address] [place], [place] [address] [facility] [address] [place], [place] Phone: [phone] Fax: Radiology Services (HEIDI) Status Reason Specialty Diagnoses / Referred By Referred To Procedures Contact Contact New Request Diagnostic Diagnoses Stage 3a chronic kidney disease Jayden Shaw Radiology Procedures US RETROPERITONEAL COMPLETE G, DO [address] [place] [address] Radiology Services (Routine) Status Reason Specialty Diagnoses / Referred By Referred To Procedures Contact Contact New Request Diagnostic Diagnoses Congestive heart failure, unspecified HF chronicity, unspecified heart failure type Katt Arevalo, Radiology Procedures XR CHEST 1 RHONDA MARQUES [address] [place] [address]. [address] [place] [address] MRI/CAT Scan (Routine) Status Reason Specialty Diagnoses / Referred By Referred To Procedures Contact Contact New Request Diagnostic Diagnoses Claudication of both lower extremities Sangeetha Vilchis, Radiology Procedures CT ANGIOGRAM LOWER EXTREMITY BILATERAL W CONTRAST [address] [place] [address]. [place] [address] (Routine) Status Reason Specialty Diagnoses / Referred By Referred To Procedures Contact Contact New Request Echocardiograph Diagnoses Congestive heart failure, unspecified HF chronicity, unspecified heart failure type Sangeetha Vilchis, Procedures ECHO ROUTINE W/DOPPLER COLOR [address] [place] [address]. [place] [address] Radiology Services (STAT) Status Reason Specialty Diagnoses / Referred By Referred To Procedures Contact Contact New Request Diagnostic Diagnoses Hyperglycemia Lactic acidosis Saurabh Rosenthal, Radiology Procedures XR CHEST 1 RHONDA MARQUES [address] [place] [address] [address] [place] [address] Reason for Visit Reason Comments Other elevated BG Foot Pain Auth/Cert Status Reason Specialty Diagnoses / Referred By Referred To Procedures Contact Contact Emergency Medicine [facility] [address] [place] [address] Fax: Encounter Details Date Type Department Care Team Description 07/07/2020 - Hospital ADC Medicine Saurabh Rosenthal MD [address] [place] [address] [address] [place], [place] [id number] Acute on chronic 07/14/2020 Encounter Surgery Unit Pedro Patterson MD [address] [place] [address] combined systolic [address] [facility] and [address] [place] [address] failure [phone] Allergies Active Allergy Reactions Severity Noted Date Comments Codeine Hallucinations 06/20/2015 Morphine Hallucinations 06/20/2015 Penicillin Rash 06/20/2015 documented as of this encounter (statuses as of 07/14/2020) Medications Medication Sig Dispensed Refills Start Date End Date Status ALPRAZolam (XANAX) TAKE 1 TABLET 1 12/15/2015 Active 0.25 mg tablet BY MOUTH EVERY DAY NEEDED amiodarone TAKE 1 TABLET 6 02/21/2016 Acti ve (CORDARONE) 200 mg BY MOUTH AT tablet BEDTIME atorvastatin 0 03/06/2016 Active (LIPITOR) 40 mg tablet clopidogrel (PLAVIX) Take 75 mg by 5 02/08/2016 Active 75 mg tablet mouth daily. fenofibrate 0 03/06/2016 Active micronized (LOFIBRA) 134 mg capsule FLUoxetine (PROZAC) 0 02/14/2016 Active 20 mg capsule JANUVIA 50 mg tablet Take 50 mg by 3 02/07/2016 Active mouth daily. pantoprazole TAKE 1 TABLET 9 02/21/2016 Ac tive (PROTONIX) 40 mg EC BY MOUTH ONCE tablet A DAY primidone (MYSOLINE) TAKE 1 TABLET 6 03/04/2016 Active 50 mg tablet BY MOUTH TWICE A DAY spironolactone 0 03/06/2016 Acti ve (ALDACTONE) 50 mg tablet TOUJEO SOLOSTAR 300 INJECT SUB 40 3 02/21/2016 Active unit/mL (1.5 mL) UNITS EVERY InPn DAY Blood Pressure Use as 1 Kit 0 03/13/2016 Acti ve Monitor (BLOOD directed PRESSURE KIT) KitIndications: Essential hypertension furosemide 40 mg Take 2 tablets 60 tablet 0 07/14/2020 Active tabletIndications: by mouth 2 Stage 3a chronic (two) times kidney disease, daily. 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 Stage 3a chronic kidney disease, 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, Acute on chronic combined systolic and diastolic congestive heart failure, Persistent atrial fibrillation, Acute cystitis without hematuria furosemide (LASIX) TAKE 1 TABLET 6 02/22/2016 Discontinued 40 mg tablet BY MOUTH TWICE 0 A DAY documented as of this encounter (statuses as of 07/14/2020) Active Problems Problem Noted Date Heart failure 07/08/2020 S/P AVR 07/08/2020 Coronary artery disease involving [place] coronary [place] heart 07/08/2020 without angina pectoris ICD (implantable [...] as of this encounter (statuses as of 07/14/2020) Immunizations Name Administration Dates Next Due Influenza [...] been in contact with No / Unsure 07/07/2020 4:00 PM CDT someone who was confirmed or suspected to have Coronavirus / COVID-19? documented as of this encounter Last Filed Vital Signs Vital Sign Reading Time Taken Comments Blood Pressure 141/78 07/14/2020 3:55 PM CDT Pulse 81 07/14/2020 3:55 PM CDT Temperature 36.5 C (97.7 F) 07/14/2020 3:55 PM CDT Respiratory Rate 20 07/14/2020 3:55 PM CDT Oxygen Saturation 93% 07/14/2020 3:55 PM CDT Inhaled Oxygen Concentration - - Weight 78 kg (171 lb 14.4 oz) 07/14/2020 3:08 AM CDT Height 172.7 cm (5' 8") 07/07/2020 4:05 PM CDT Body Mass Index 26.14 07/07/2020 4:05 PM CDT documented in this encounter Discharge Summaries Lucina Salomon MD - 07/14/2020 5:12 PM CDT [facility] Hospitalist Discharge Summary ADMIT DATE: 07/07/2020 DISCHARGE DATE: 07/14/2020 ATTENDING MD: Lucina Salomon MD PCP: Efra Avila REASON FOR ADMISSION ICD-10-CM ICD-9-CM 1. Acute on chronic combined systolic and [...] 13. Acute cystitis without hematuria N30.00 595.0 HOSPITAL COURSE: Nasir Das is a 79 year old female with PMH significant for atrial fibrillation, CAD s/p CABG,DM, HTN, CHF, admitted to the hospital with: #Acute on chronic systolic and diastolic CHF (follows Dr. Delgado outpatient) #NSTEMI type 2 - Likely due to infection and volume overload - Received IV lasix then held for PIOTR. Strict I/Os. --> Lasix resumed, since Cr improving. Will discharge on increased dose of Lasix 80mg BID. - Echo done, showed EF 20-25%, elevated venous pressures - Cardiology on board - Not on beta alvina or ACEI/ARB or aldactone due to low bp and PIOTR #E. Coli Urinary tract infection >> UCx (+) E.coli, resistant to bactrim, ampicillin - Completed 7-day course of IV ceftriaxone inpatient #POITR on CKD 3 - Likely ATN 2/2 contrast and hypotension - Resumed lasix, aldactone as Cr has improved - Trend Cr -- improving (3.76 -> 3.57 -> 3.18 today) - Nephrology consult (Dr. Shaw) -- PO lasix resumed and patient stable for discharge with lasix 80mg BID + aldactone 50mg daily at home. #Hyponatremia - Nephrology onboard - continue salt tabs. No need to continue outpatient. #Hx CAD s/p CABG and AVR, chronic a-fib - On aspirin, plavix, amiodarone - Defer AC to cardiology; per cardiology not on AC due to bleeding risk - S/p ICD #IDDM, A1c 11.2 - Takes toujeo 40u qd, januvia - On lantus 20u here; hold for tonight due to PIOTR - Carb restriction PHYSICAL EXAM: BP (!) 141/78 | Pulse 81 | Temp 36.5 C (97.7 F) (Temporal Artery) | Resp 20 | Ht 1.727 m (5'8") | Wt 78 kg (171 lb 14.4 oz) | SpO2 93% | BMI 26.14 kg/m Wt Readings from Last 3 Encounters: 07/14/20 78 kg (171 lb 14.4 oz) 06/30/20 72.6 kg (160 lb) 09/03/16 86.7 kg (191 lb 3.2 oz) Constitutional: comfortable, NAD, sitting up in bed, able to ambulate to bathroom, well nourished Skin: no rash, normal turgor, no palpable lesions Eyes: EOM, PERRLA, conjunctiva normal, anicteric sclerae ENT: no oral lesions, no abnormalities of external ears or nose, no neck stiffness Cardiovascular: regular rate and rhythm, +mild lower extremity edema Respiratory: CTA bilaterally, symmetric expansion, no retractions GI: soft, NT/ND, +BS : No hooker in place Musculoskeletal: no redness, warmth, or swelling of the joints. No clubbing, cyanosis. Mild BLE edema. Neurologic: No focal deficits. No myoclonus or seizures. Awake, alert. Psychiatric: oriented x3, appropriate mood and affect, no delirium SIGNIFICANT LAB/X-RAYS: LABS - reviewed pertinent labs as below: CBC BMP PT/INR WBC (10*3/L) Date Value 07/14/2020 6.66 NA (mmol/L) Date Value 07/14/2020 133 (L) No results found for: PT RBC (10*6/L) Date Value 07/14/2020 4.24 K (mmol/L) Date Value 07/14/2020 4.4 INR (no units) Date Value 07/07/2020 1.3 PLT (10*3/L) Date Value 07/14/2020 297 CALCIUM (mg/dL) Date Value 07/14/2020 8.9 HGB (g/dL) Date Value 07/14/2020 11.2 (L) CL (mmol/L) Date Value 07/14/2020 101 aPTT HCT (%) Date Value 07/14/2020 33.0 (L) BUN (mg/dL) Date Value 07/14/2020 33 (H) APTT Patient (Seconds) Date Value 07/07/2020 25 CREATININE (mg/dL) Date Value 07/14/2020 3.18 (H) IMAGING - reviewed Hospital Encounter on 07/07/20 CT ANGIOGRAM LOWER EXTREMITY BILATERAL W CONTRAST Narrative PROCEDURE: CT angiogram of the abdomen and pelvis and lower extremities INDICATION: Coronary artery disease, diabetes, hypertension. History of aortic valve replacement and coronary artery bypass surgery. Coronary artery disease post bypass. Bilateral leg swelling and claudication. Thin section CT angiography was performed in the axial plane after the rapid intravenous administration of contrast. No prior studies for comparison. Multiplanar reconstructions were performed as well as 3-D reformats. DOSE: 268 mgy-cm DLP Impression NO SIGNIFICANT ILIOFEMORAL ARTERIAL OCCLUSIVE DISEASE ALTHOUGH DIFFUSE CALCIFICATIONS ARE CONSISTENT WITH LONG-STANDING DIABETES. DIFFUSE LOWER EXTREMITY SOFT TISSUE SWELLING MAY BE CARDIAC OR FLUID OVERLOAD IN ORIGIN. 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 RIGHT POPLITEAL ARTERY POORLY VISUALIZED DUE TO ARTIFACT FROM KNEE PROSTHESIS. HOWEVER, OCCLUSIVE DISEASE IS PRIMARILY BELOW THE KNEE FROM THE RIGHT ANTERIOR TIBIAL AND PERONEAL ARTERIES WITH MULTIPLE STENOSES AFFECTING THE POSTERIOR TIBIAL ARTERY. FINDINGS: PELVIS: The visualized portions of the external iliac arteries show calcifications without focal stenosis. The common and internal iliac arteries are not visualized but the branches of the internal iliac arteries both opacify. The uterus is atrophic and otherwise unremarkable. No pelvic mass or lymphadenopathy. Patient is status post right total hip arthroplasty. No pelvic bony lesions focally. LEFT LOWER EXTREMITY: Common femoral and profunda femoral artery widely patent. Calcified but patent left SFA with some moderate disease in the adductor canal. Popliteal artery mildly diseased with at least 50-60 % calcific stenosis in its midportion at the level of the tibial plateau. There is 3 vessel below the knee left leg runoff with alternating stenoses primarily in the territory of the anterior tibial artery. Anterior and posterior and peroneal arteries flow into the left foot, however. There is diffuse soft tissue edema throughout the left lower extremity. RIGHT LOWER EXTREMITY: As on the left, the right SFA is moderately calcified with mild disease at the adductor canal. Right common femoral and profunda femoral artery widely patent. The right popliteal artery is patent and is poorly visualized in its midportion due to the presence of a right knee prosthesis. However, there are no collaterals to suggest significant stenosis at the popliteal level. Infrapopliteal runoff is primarily from the anterior tibial and peroneal arteries. The right posterior tibial artery shows several occlusions and stenoses but is reconstituted distally at the level of the right ankle. US RETROPERITONEAL COMPLETE Narrative ULTRASOUND RENAL INDICATION: PIOTR. Eval postvoid residuals. COMPARISON: None. FINDINGS: Partially visualized trace right pleural effusion. Right kidney measures 9.2 x 4.5 x 3.7 cm. Right inferior renal pole contains a 1.1 cm cyst with thin septation but no appreciable vascular flow on Doppler (velocity scale set relatively high at 18.5 cm/s). There is normal renal cortical echogenicity and corticomedullary differentiation. No hydronephrosis or renal calculi. There is qualitatively normal perfusion on color doppler interrogation. Left kidney measures 10.7 x 5.0 x 4.3 cm. . Left lower renal pole contains a sub-5 mm nonshadowing echogenic focus which probably represents a small nonobstructive stone versus parenchymal calcification. Left upper renal pole contains a 1.0 cm simple cyst. There is normal renal cortical echogenicity and corticomedullary differentiation. No hydronephrosis. There is qualitatively normal perfusion on color doppler interrogation. Small amount of free fluid within the dependent pelvis. Pre and post void residuals measure 30.1 mL and 15.9 mm, respectively. Impression No significant appreciable renal atrophy or cortical thinning. Pre and postvoid residuals as above. Bilateral renal cysts and suspected sub-5 mm nonobstructive left nephrolithiasis. Septated right upper renal pole cyst without definite vascular flow within the septation as above. Small volume ascites layering in the dependent pelvis. Partially visualized trace right pleural effusion. XR CHEST 1 VW Narrative PORTABLE CHEST RADIOGRAPH History: chf Comparison: 07/07/2020 TECHNIQUE: AP view of the chest. Impression Findings and Impression: No significant change in appearance of lungs or cardiomediastinal silhouette. Persistent cardiomegaly with single AICD electrodes projecting over the left chest. No raina pulmonary edema. Sternotomy no pleural effusion or pneumothorax. Changes. Prominent aortic arch and descending thoracic aortic calcifications. XR CHEST 1 VW Narrative Exam: XR CHEST 1 VW 07/07/2020 5:18 PM Clinical History: pneumonia Comparison: Radiograph of 02/20/2018 Technique: AP view of the chest Findings: The heart is enlarged. A left chest wall pacemaker lead overlies the center of the cardiac shadow. The lungs are clear. Aortic knob calcification. Sternotomy wires are noted. No acute osseous abnormality. Subdiaphragmatic vascular calcification. Gas containing substernal abdominal wall hernia is noted. Impression Impression: Cardiomegaly. No lung consolidation. ITEMS FOR FOLLOW UP PROVIDER: (including pending labs/cultures/studies, anticipated problems, etc.) - F/U BMP in 1 week from discharge for increase lasix dose. - F/U glucose control. FUNCTIONAL STATUS: fully ambulatory DISCHARGE CONDITION: good DIET: cardiac and diabetic ACTIVITY: as tolerated DISCHARGE MEDICATIONS: Current Discharge Medication List START taking these medications Details lactobacillus acidophilus (ACIDOPHILLUS) 1 tablet Take 1 tablet by mouth 2 (two) times daily. 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 Refills: 5 fenofibrate micronized (LOFIBRA) 134 mg capsule FLUoxetine (PROZAC) 20 mg capsule Januvia 50 mg Take 50 mg by mouth daily. Refills: 3 pantoprazole (PROTONIX) 40 mg EC tablet TAKE 1 TABLET BY MOUTH ONCE A DAY Refills: 9 primidone (MYSOLINE) 50 mg tablet TAKE 1 TABLET BY MOUTH TWICE A DAY Refills: 6 spironolactone (ALDACTONE) 50 mg tablet TOUJEO SOLOSTAR 300 unit/mL (1.5 mL) InPn INJECT SUB 40 UNITS EVERY DAY Refills: 3 DISCHARGE INSTRUCTIONS: - Follow-up with PCP, Cardiology (Dr. Quick), and Nephrology (Dr. Shaw) as scheduled. Please call Dr. Shaw's office to schedule follow-up appointment within 1 week of discharge. - Obtain blood work/lab (BMP) on 07/20/2020 (in 1 week). - Take diuretic (Lasix) 80mg twice a day. Continue spironolactone 50mg daily and other home medications as before. - Take probiotic (lactobacillus) twice a day for 2 weeks (until finish bottle) to help after receiving antibiotics in the hospital. DISCHARGE: home health Please call paging services at [phone] to contact Lucina Salomon MD with any questions. [place] Prescription Drug Monitoring Program ([employer]) was reviewed during stay for compliance with narcotics and other controlled substances prior to prescribing medications and found no evidence of irregularity or aberrant behavior. A total time of more than 35 minutes on discharge including chart review, evaluating patient, discussing with patient and/or family, discussing with nursing and/or consultants, discharge summary, reconciling home medications, and evaluating labs and imaging. Lucina Salomon MD Provider #[id number] Hospitalist/Clinical Educational Therapy Teacher [facility] ([facility] ([facility]) documented in this encounter Discharge Instructions AppointmentsMeAyanna kaur LMSW - 07/10/2020 2:54 PM CDTMonday July 24, 2020 1:15 PM Hospital Follow-Up Visit with Efra Avila MD. [address] [place] [id number] signed by Ayanna Shi LMSW at 07/10/2020 2:54 PM CDT Additional InstructionsCorlGala RN - 07/14/2020 Patient Discharge Instructions Discharge date: Discharge Diagnosis: Discharge Orders BASIC METABOLIC PANEL (NA, K, CL, CO2, GLUCOSE, BUN, CREATININE, CA) Discharge Follow-up: PCP EFRA AVILA; 1 Week To PCP: EFRA AVILA [[id number]] Patient's Preferred Location: Unknown Discharge Disposition: Home Health not related to Admit, (ARS) When (Patients with risk for unplanned readmission score over 16 or those noted as Hospital Dependent should follow up within 7 days with PCP or primary DX specialist): 1 Week Risk of Unplanned Readmission:( Score greater than 16 indicates high risk) 18 Cardiac (2 g Na, Low Fat/Chol) 1800 Calorie Diabetic Consistent Carbs Diet - includes HS Snack; Texture: Regular Texture Regular Diabetic: IDDM Discharge Condition - Discharge Condition: GOOD Discharge Activity Discharge Activity: As Tolerated Discharge Follow-Up: Specialty Service IM-NEPHROLOGY (Dr. Shaw); 1 Week Specialty: IM-NEPHROLOGY [18] Dr. Shaw Patient's Preferred Location: Unknown Discharge Disposition: Home Health not related to Admit, (ARS) When (Patients with risk for unplanned readmission score over 16 or those noted as Hospital Dependent should follow up within 7 days with PCP or primary DX specialist): 1 Week Risk of Unplanned Readmission:( Score greater than 16 indicates high risk) 18 Discharge Follow-Up: Specialty Service IM-CARDIOVASCULAR DISEASE (Dr. Quick); 1 Week Specialty: IM-CARDIOVASCULAR DISEASE [4] Dr. Quick Patient's Preferred Location: Unknown Discharge Disposition: Home Health not related to Admit, (ARS) When (Patients with risk for unplanned readmission score over 16 or those noted as Hospital Dependent should follow up within 7 days with PCP or primary DX specialist): 1 Week Risk of Unplanned Readmission:( Score greater than 16 indicates high risk) 18 Discharge Instructions Order Comments: - Follow-up with PCP, Cardiology (Dr. Quick), and Nephrology (Dr. Shaw) as scheduled. Please call Dr. Shaw's office to schedule follow-up appointment within 1 week of discharge. - Obtain blood work/lab (BMP) on 07/20/2020 (in 1 week). - Take diuretic (Lasix) 80mg twice a day. Continue spironolactone 50mg daily and other home medications as before. - Take probiotic (lactobacillus) twice a day for 2 weeks (until finish bottle) to help after receiving antibiotics in the hospital. VTE Propylaxis- Was ordered during hospitalization Home Health Order Order Comments: I certify that Nasir Das is under my care and that I, or a nurse practitioneror physician's medical assistant internal medicine working with me, had a [id number] encounter with this patient on: 07/14/2020. The encounter with Nasir Margarita was in whole or in part, for the following medical condition(s),which is the primary reason for home health care: Acute on chronic combined systolic and diastolic congestive heart failure. I am ordering and certify that based on my findings the following services are medically necessary home health services: Evaluation and Treatment, Home Safety Eval, Physical Therapy Eval & Treatment and Occupational Therapy Eval & Treatment Times a week: Three For: 4 Weeks Intermediate Services: Medication Management and Teaching Times a week: Three For: 4 Weeks PCP follow up: Efra Avila Call lab results to: My clinical findings support the need for the services listed above because: limited mobility Further, I certify that my clinical findings support that this patient is homebound (i.e. absences from home require considerable and taxing effort and are for medical reasons or moravian services or infrequently or of short duration when for other reasons) because: Requires assistance of supported devices to leave the home I understand and acknowledge that this is not a valid order until it is authenticated by a medical provider who has authority within their Scope of Practice to do so. I am inputting this information in my capacity as a scribe. Milad Woods RN Facility/Provider [address] [place] [address] () [phone] (F) [phone] Follow instructions as indicated below: Lifting: {IP DISCHARGE INSTRUCTIONS LIFTIN::"No medical restrictions"} Weight: In general, sudden weight whiting or losses should be reported to your provider. Cardiac patients should weigh daily and notify their provider for a weight gain of 3 pounds per day or 5 pounds per week. Tobacco Avoidance: Follow recommendations below Wound/dressing care: Other discharge instructions: {[place] IP DISCHARGE INSTRUCTIONS OTHER:58161} Vaccines and/or immunizations received during this hospitalization: {IP DISCHARGE INSTRUCTIONS VACCINES THIS HOSPITALIZATION:30242::"None"} Take Home Medications These are medications ordered for you by your healthcare provider. Do not take any other medications or supplements unless advised by your healthcare provider. Current Discharge Medication List START taking these medications Details lactobacillus acidophilus (ACIDOPHILLUS) 1 tablet Take 1 tablet by mouth 2 (two) times daily. 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 Refills: 5 fenofibrate micronized (LOFIBRA) 134 mg capsule FLUoxetine (PROZAC) 20 mg capsule Januvia 50 mg Take 50 mg by mouth daily. Refills: 3 pantoprazole (PROTONIX) 40 mg EC tablet TAKE 1 TABLET BY MOUTH ONCE A DAY Refills: 9 primidone (MYSOLINE) 50 mg tablet TAKE 1 TABLET BY MOUTH TWICE A DAY Refills: 6 spironolactone (ALDACTONE) 50 mg tablet TOUJEO SOLOSTAR 300 unit/mL (1.5 mL) InPn INJECT SUB 40 UNITS EVERY DAY Refills: 3 Follow-up appointments: For questions regarding follow-up instructions call the Healthcare Hotline at or If you experience any of the following symptoms , please follow up with . For worsening symptoms/changing condition/problems or questions: Non-emergency/urgent: Call the Healthcare Hotline at or or Emergency: Go to the closest emergency room or call [phone] Translated by Date Time Warfarin (COUMADIN) Stay in Range Checklist: 1. Provider portion completed on Discharge Summary: (not recorded), If No, a. Name and time provider notified: (not recorded) b. Final completion of section time: (not recorded) Patient has a follow up appt in 3-5 days after starting warfarin: (not recorded) If No, a. Name and time provider notified: (not recorded) b. Time completed: (not recorded) Patient provided with anticoagulation follow-up appointment information: (not recorded) Importance of follow up discussed with patient: (not recorded) Warfarin/Anticoagulation educational materials provided: (not recorded) 6. Educational material reinforced with patient and documented on interdisciplinary form: (not recorded) Prescription(s) provided: (not recorded) Please tell us how we are doing. Complete and return the patient satisfaction survey that is mailed to you. Tobacco Avoidance Exposure to tobacco either from smoking, or from second hand (environmental smoke or smokeless tobacco - snuff) is damaging to your health. This information is to encourage everyone to avoid tobacco exposure. It is recommended that you: Avoid second-hand smoke If you do not smoke or use smokeless tobacco, do not start. If you smoke or use smokeless tobacco we encourage you to quit. If you have quit smoking, continue your good work! Information in the You Can Quit section may be used as a resource. Secondhand smoke is dangerous Secondhand smoke is the smoke that comes from a cigarette or other tobacco that someone other than you is smoking. Protect Yourself: Make your home and car smoke-free Family, friends, and visitors should never smoke inside your home or car Everyone knows that smoking is bad for smokers but did you know? Breathing smoke from someone else's cigarette, pipe or cigar can make you sick Smoking inside a home or car is more dangerous because smoke gets trapped inside - even fans and open windows don't help Children who live in homes where people smoke get sick more often with coughs, breathing problemssuch as asthma, and ear infections Secondhand smoke is also linked to Sudden Syndrome (SIDS) Secondhand smoke can cause lung cancer in adults and is also bad for the heart.1 You Can Quit Smoking Want to Quit? Nicotine is a powerful addiction Quitting is hard, but don't give up Many people try 2-3 times before they quit for good Each time you try to quit, the more likely you are to succeed Good Reasons for Quitting You will live longer and live better Quitting will lower your chance of having a heart attack, stroke, or cancer If you are , quitting smoking will improve your chances of having a healthy baby The people you live with, especially your children, will be healthier You will have extra money to spend on things other than cigarettes Tips to Help You Quit Get rid of all cigarettes and ashtrays in your home, car, or workplace Ask your family, friends, and coworkers for support Stay in nonsmoking areas Breathe in deeply when you feel the urge to smoke Keep your self busy Reward yourself often Additional Resources You may want to contact these organizations for further information on smoking and how to quit. [place] [employer] [employer] 1U.S. Environmental Protection Agency. Secondhand Tobacco Smoke and the Health of Your Family brochure. Retrieved from the Internet on March 24, 2006. Http://www.epa.gov/smokefree/publications.html#How %20to%20Order%20EPA%20Publications [employer] for Quitting Studies have shown that these five steps will help you quit and quit for good. You have the best chances of quitting if you use them together. 1. Get Ready Set a quit date Change your environment 1. Get rid of ALL cigarettes and ashtrays in your home, car, and place of work 2. Don't let people smoke in your home Review your past attempts to quit. Think about what worked and what did not Once you quit, don't smoke - NOT EVEN A PUFF! 2. Get Support and Encouragement Studies have shown that you have a better chance of being successful if you have help. You can get support in many ways: Tell you family, friends, and co-workers that you are going to quit and want their support. Ask them not to smoke around you or leave cigarettes out. Talk to your health care provider (for example, doctor, nurse, pharmacist, psychologist, or smoking counselor Get individual, group, or telephone counseling. The more counseling you have, the better you chances are of quitting. Programs are given at local hospitals and health centers. Call your local health department for information about programs in your area. 3. Learn New Skills and Behaviors Try to distract yourself from urges to smoke. Talk to someone, go for a walk, or get busy with atask When you first try to quit, change your routine. Use a different route to work. Drink tea instead of coffee. Eat breakfast in a different place. Do something to reduce your stress. Take a hot bath, exercise, or read a book. Plan something enjoyable to do every day Drink a lot of water and other fluids 4. Get Medication and Use It Correctly Medications can help you stop smoking and lessen the urge to smoke. The U.S. Food and Drug Administration (FDA) has approved five medications to help you quit smokin. Bupropion SR - Available by prescription 2. Nicotine gum - Available [id number] 3. Nicotine inhaler - Available by prescription 4. Nicotine nasal spray - Available by prescription 5. Nicotine patch - Available by prescription and [id number] Ask your health care provider for advice and carefully read the information on the package All of these medications will more or less double your chances of quitting and quitting for good Everyone who is trying to quit may benefit from using a medication. If you are or trying to become , nursing, under age 18, smoking fewer than 10 cigarettes per day, or have a medical condition, talk to your doctor or other health care provider before taking medications 5. Be Prepared for Relapse or Difficult Situations Most relapses occur within the first 3 months after quitting. Don't be discouraged if you start smoking again. Remember, most people try several times before they finally quit. Here are some difficult situations to watch for: Alcohol. Avoid drinking alcohol. Drinking lowers your chances of success. Other Smokers. Being around smoking can make you want to smoke. Weight Gain. Many smokers will gain weight when they quit, usually less than 10 pounds. Eat a healthy diet and stay active. Don't let weight gain distract you from your main goal - quitting smoking. Some quit-smoking medications may help delay weight gain. Bad Mood or Depression. There are a lot of ways to improve your mood other than smoking. If you are having problems with any of these situations, talk to your doctor or other health careprovider. AttachmentsThe following attachments cannot be sent through Care Everywhere. Atrial Fibrillation, Discharge Instructions for (Namibian)Atrial Fibrillation, Understanding (Namibian)Atrial Flutter/Fibrillation, What Is (Namibian)Kidney Injury, Acute, Discharge Instructions for (Namibian)Urinary Tract Infections in Women (Namibian)Spinal Cord Injury (SCI): Managing Your Bladder (Namibian) documented in this encounter Progress Notes Amanda Quick MD - 07/14/2020 8:44 AM CDT [facility] Cardiology progress note Date of Service: 07/14/2020 Nasir Das is an 79 year old female hospitalized for HFrEF exacerbation and UTI. Feeling better. Mild edema. Cr improved. PHYSICAL EXAM Vitals: 07/13/20 1938 07/13/20 2304 07/14/20 0308 07/14/20 0726 BP: 124/69 115/66 (!) 141/81 (!) 147/90 Pulse: 78 79 80 77 Resp: 18 18 18 18 Temp: 36.3 C (97.4 F) 36.1 C (97 F) 36.2 C (97.1 F) 36.4 C (97.6 F) TempSrc: Temporal Artery Temporal Artery Temporal Artery Temporal Artery SpO2: 93% 97% 98% 96% Weight: 78 kg (171 lb 14.4 oz) Height: General: alert and oriented x 3 (person, place and date/time); no apparent distress HEENT: normocephalic atraumatic Neck: supple, no lymphadenopathy, no bruits, no JVD Lungs: clear to auscultation bilaterally Cardio: S1, S2, normal rate, irregular; no murmurs, rubs or gallops Abdomen: non-distended : not examined Rectal: not examined Extremities: no clubbing, cyanosis, + mild leg edema Skin: no rashes Neuro: no focal deficits Medications: I have reviewed the patient's medications; see Medication Reconciliation. Labs: I have reviewed the patient's labs. 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 Due to PIOTR, lasix was held. Now restarted PO lasix due to worsening leg edema. Off spironolactone. Low salt diet, I/O, daily weight. She has not been on beta alvina or ACEI/ARB probably due to low BP. ECHO showed LVEF 20-25% with elev ated venous pressure. Chronic Afib with controlled rate--Will continue amiodarone 200 mg daily. Not on anticoagulation probably due to bleeding risk. PIOTR--per nephrology. Signs of improvement. Probably ATN. PO lasix now. Adjust the dosage as needed. Troponin elevation--suspect type 2 [place] due to UTI, HF exacerbation etc. ECHO showed stable findings compared to last ECHO in [facility]. CAD--s/p CABG. Continue plavix and lipitor. S/p AVR--ECHO showed stable parameters. S/p ICD--seems epicardial lead. HTN--well controlled. Hold spironolactone due to PIOTR.. HLD--continue lipitor. UTI--per primary team. Amanda Quick MD, FAC, EULOGIO Educational Therapy Teacher, Division of Cardiology [facility] Jayden Price DO - 07/13/2020 5:15 PM CDT Nephrology Progress Note Admit Date: 07/07/2020 CPS stable without CP or SOB. No acute events overnight. Good urine output. +Appetite Temp: [36.2 C (97.2 F)-36.5 C (97.7 F)] Pulse: [78-89] Resp: [17-19] BP: (124-145)/(69-82) Vitals and medications reviewed in the chart. Blood work and imaging reviewed in the chart. PE: Gen: NAD HEENT: NCAT. MMM. Neck: Supple. No LAD. Lungs: CTA CVS: RRR Abd: Soft. NT. +BS Ext: No C/C. LE Edema 1+ Skin: No rash Psych: AAO Neuro: Normal speech ASSESSMENT/PLAN Nasir Das is a 79 year old female with PMH as listed above, admitted to the hospital with: The primary encounter diagnosis was Hyperglycemia. Diagnoses of Lactic acidosis, New onset a-fib, Acute congestive heart failure, unspecified heart failure type, Lymphedema, Elevated troponin, Congestive heart failure, unspecified HF chronicity, unspecified heart failure type, and Claudication of bothlower extremities were also pertinent to this visit. A/ PIOTR in the setting of diuresis. Possible ATN due to hypotension/ IV contrast. Hyponatremia Hypocalcemia CKD III with proteinuria HTN with CKD/ CHF complicated by episodes of hypotension Systolic CHF, A/C DM II with CKD A1C 11.2 Anemia in chronic illness. Iron Deficiency 10%. Acute E.coli cystitis P/ Continue current POC and Medications other than changes listed below. Please see chart and orders for complete details. Restart furosemide. Will restart spironolactone as needed. Continue abx. Low sodium diet. No NSAIDs. AM labs. Daily weight. Consider PT as tolerated. 07/13/20 0335 Weight: 79.5 kg (175 lb 3.2 oz) Height: Vitals: 07/13/20 0713 07/13/20 1115 07/13/20 1600 07/13/20 1938 BP: (!) 143/82 137/72 125/75 124/69 Pulse: 78 82 82 78 Resp: 17 19 18 18 Temp: 36.3 C (97.3 F) 36.4 C (97.5 F) 36.5 C (97.7 F) 36.3 C (97.4 F) TempSrc: Temporal Artery Temporal Artery Temporal Artery Temporal Artery SpO2: 95% 94% 97% 93% Weight: Height: Intake/Output Summary (Last 24 hours) at 07/11/2020 2149 Last data filed at 07/11/2020 1854 Gross per 24 hour Intake 643 ml Output 270 ml Net 373 ml Hospital Encounter on 07/07/20 CT ANGIOGRAM LOWER EXTREMITY BILATERAL W CONTRAST Narrative PROCEDURE: CT angiogram of the abdomen and pelvis and lower extremities INDICATION: Coronary artery disease, diabetes, hypertension. History of aortic valve replacement and coronary artery bypass surgery. Coronary artery disease post bypass. Bilateral leg swelling and claudication. Thin section CT angiography was performed in the axial plane after the rapid intravenous administration of contrast. No prior studies for comparison. Multiplanar reconstructions were performed as well as 3-D reformats. DOSE: 268 mgy-cm DLP Impression NO SIGNIFICANT ILIOFEMORAL ARTERIAL OCCLUSIVE DISEASE ALTHOUGH DIFFUSE CALCIFICATIONS ARE CONSISTENT WITH LONG-STANDING DIABETES. DIFFUSE LOWER EXTREMITY SOFT TISSUE SWELLING MAY BE CARDIAC OR FLUID OVERLOAD IN ORIGIN. 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 RIGHT POPLITEAL ARTERY POORLY VISUALIZED DUE TO ARTIFACT FROM KNEE PROSTHESIS. HOWEVER, OCCLUSIVE DISEASE IS PRIMARILY BELOW THE KNEE FROM THE RIGHT ANTERIOR TIBIAL AND PERONEAL ARTERIES WITH MULTIPLE STENOSES AFFECTING THE POSTERIOR TIBIAL ARTERY. FINDINGS: PELVIS: The visualized portions of the external iliac arteries show calcifications without focal stenosis. The common and internal iliac arteries are not visualized but the branches of the internal iliac arteries both opacify. The uterus is atrophic and otherwise unremarkable. No pelvic mass or lymphadenopathy. Patient is status post right total hip arthroplasty. No pelvic bony lesions focally. LEFT LOWER EXTREMITY: Common femoral and profunda femoral artery widely patent. Calcified but patent left SFA with some moderate disease in the adductor canal. Popliteal artery mildly diseased with at least 50-60 % calcific stenosis in its midportion at the level of the tibial plateau. There is 3 vessel below the knee left leg runoff with alternating stenoses primarily in the territory of the anterior tibial artery. Anterior and posterior and peroneal arteries flow into the left foot, however. There is diffuse soft tissue edema throughout the left lower extremity. RIGHT LOWER EXTREMITY: As on the left, the right SFA is moderately calcified with mild disease at the adductor canal. Right common femoral and profunda femoral artery widely patent. The right popliteal artery is patent and is poorly visualized in its midportion due to the presence of a right knee prosthesis. However, there are no collaterals to suggest significant stenosis at the popliteal level. Infrapopliteal runoff is primarily from the anterior tibial and peroneal arteries. The right posterior tibial artery shows several occlusions and stenoses but is reconstituted distally at the level of the right ankle. US RETROPERITONEAL COMPLETE Narrative ULTRASOUND RENAL INDICATION: PIOTR. Eval postvoid residuals. COMPARISON: None. FINDINGS: Partially visualized trace right pleural effusion. Right kidney measures 9.2 x 4.5 x 3.7 cm. Right inferior renal pole contains a 1.1 cm cyst with thin septation but no appreciable vascular flow on Doppler (velocity scale set relatively high at 18.5 cm/s). There is normal renal cortical echogenicity and corticomedullary differentiation. No hydronephrosis or renal calculi. There is qualitatively normal perfusion on color doppler interrogation. Left kidney measures 10.7 x 5.0 x 4.3 cm. . Left lower renal pole contains a sub-5 mm nonshadowing echogenic focus which probably represents a small nonobstructive stone versus parenchymal calcification. Left upper renal pole contains a 1.0 cm simple cyst. There is normal renal cortical echogenicity and corticomedullary differentiation. No hydronephrosis. There is qualitatively normal perfusion on color doppler interrogation. Small amount of free fluid within the dependent pelvis. Pre and post void residuals measure 30.1 mL and 15.9 mm, respectively. Impression No significant appreciable renal atrophy or cortical thinning. Pre and postvoid residuals as above. Bilateral renal cysts and suspected sub-5 mm nonobstructive left nephrolithiasis. Septated right upper renal pole cyst without definite vascular flow within the septation as above. Small volume ascites layering in the dependent pelvis. Partially visualized trace right pleural effusion. XR CHEST 1 VW Narrative PORTABLE CHEST RADIOGRAPH History: chf Comparison: 07/07/2020 TECHNIQUE: AP view of the chest. Impression Findings and Impression: No significant change in appearance of lungs or cardiomediastinal silhouette. Persistent cardiomegaly with single AICD electrodes projecting over the left chest. No raina pulmonary edema. Sternotomy no pleural effusion or pneumothorax. Changes. Prominent aortic arch and descending thoracic aortic calcifications. XR CHEST 1 VW Narrative Exam: XR CHEST 1 VW 07/07/2020 5:18 PM Clinical History: pneumonia Comparison: Radiograph of 02/20/2018 Technique: AP view of the chest Findings: The heart is enlarged. A left chest wall pacemaker lead overlies the center of the cardiac shadow. The lungs are clear. Aortic knob calcification. Sternotomy wires are noted. No acute osseous abnormality. Subdiaphragmatic vascular calcification. Gas containing substernal abdominal wall hernia is noted. Impression Impression: Cardiomegaly. No lung consolidation. Recent Results (from the past 48 hour(s)) URIC ACID Collection Time: 07/12/20 3:22 AM Result Value Ref Range URIC ACID 10.2 (H) 2.9 - 6.0 mg/dL OSMOLALITY SERUM Collection Time: 07/12/20 3:22 AM Result Value Ref Range OSMOLALITY 292 278 - 305 mOsm/kg TROPONIN I Collection Time: 07/12/20 3:22 AM Result Value Ref Range TROPONIN I 0.089 (H) <=0.034 ng/mL N-TERMINAL PRO-BNP Collection Time: 07/12/20 3:22 AM Result Value Ref Range NT-proBNP 19,400 (H) <=450 pg/mL BASIC METABOLIC PANEL (NA, K, CL, CO2, GLUCOSE, BUN, CREATININE, CA) Collection Time: 07/12/20 3:22 AM Result Value Ref Range NA 129 (L) 135 - 145 mmol/L K 5.0 3.5 - 5.0 mmol/L CL 98 98 - 108 mmol/L CO2 TOTAL 20 (L) 23 - 31 mmol/L AGAP 11 2 - 16 BUN 38 (H) 7 - 23 mg/dL GLUCOSE 133 (H) 70 - 110 mg/dL CREATININE 3.76 (H) 0.50 - 1.04 mg/dL CALCIUM 8.4 (L) 8.6 - 10.6 mg/dL eGFR Calculation (Non-) 11.5 mL/min/1.73m2 eGFR Calculation () 14.0 mL/min/1.73m2 CBC WITH DIFF Collection Time: 07/12/20 3:22 AM Result Value Ref Range WBC 8.84 4.30 - 11.10 10*3/L RBC 4.22 3.93 - 5.25 10*6/L HGB 10.9 (L) 11.6 - 15.0 g/dL HCT 33.2 (L) 35.7 - 45.2 % MCV 78.7 (L) 80.6 - 95.5 fL MCH 25.8 (L) 25.9 - 32.8 pg MCHC 32.8 31.6 - 35.1 g/dL RDW-SD 49.8 39.0 - 49.9 fL RDW-CV 17.5 (H) 12.0 - 15.5 % PLT 213 166 - 358 10*3/L MPV 11.9 9.5 - 12.9 fL NRBC/100 WBC 0.0 0.0 - 10.0 /100 WBCs NRBC x10^3 <0.01 10*3/L GRAN MAT (NEUT) % 80.0 % IMM GRAN % 0.50 % LYMPH % 5.5 % MONO % 11.5 % EOS % 1.9 % BASO % 0.6 % GRAN MAT x10^3(ANC) 7.07 1.88 - 7.09 10*3/uL IMM GRAN x10^3 0.04 0.00 - 0.06 10*3/uL LYMPH x10^3 0.49 (L) 1.32 - 3.29 10*3/uL MONO x10^3 1.02 (H) 0.33 - 0.92 10*3/uL EOS x10^3 0.17 0.03 - 0.39 10*3/uL BASO x10^3 0.05 0.01 - 0.07 10*3/uL ACUTE CARE VENOUS BLOOD GAS Collection Time: 07/12/20 3:22 AM Result Value Ref Range PH 7.34 7.32 - 7.42 PCO2 GERMANIA 37 (L) 41 - 51 mmHg PO2 GERMANIA 55 (HH) 25 - 40 mmHg HCO3 GERMANIA 19 (L) 24 - 28 mEq/L AC VBE(BEAKER) -5.9 mEq/L OSMOLALITY URINE Collection Time: 07/12/20 4:44 AM Result Value Ref Range OSMO U 275 50-1,100 mOsm/kg URINALYSIS Collection Time: 07/12/20 4:44 AM Result Value Ref Range APPEARANCE Hazy (A) Clear COLOR Yellow Yellow PH 5.0 4.8 - 8.0 SP GRAVITY 1.015 1.003 - 1.030 GLU U QUAL Normal Normal BLOOD 1+ (A) Negative KETONES Negative Negative PROTEIN 30 mg/dL (A) Negative UROBILIN Normal Normal BILIRUBIN Negative Negative NITRITE Negative Negative LEUK KARSTEN 25/uL (A) Negative RBC/HPF 2 0 - 3 HPF WBC/HPF 20 (H) 0 - 5 HPF BACTERIA Moderate (A) Negative SQ EPITH 1 HPF HYAL CAST 6 (H) <=2 LPF TRANS EPI 1 <=1 HPF GRAN CASTS 20 (H) <=1 LPF CREATININE, URINE RANDOM Collection Time: 07/12/20 4:44 AM Result Value Ref Range CREAT U 70.5 mg/dL SODIUM, URINE RANDOM Collection Time: 07/12/20 4:44 AM Result Value Ref Range NA URINE 23 mmol/L UREA NITROGEN, URINE RANDOM Collection Time: 07/12/20 4:44 AM Result Value Ref Range UREA N UR 338 mg/dL POCT GLUCOSE (AUTOMATED) Collection Time: 07/12/20 7:46 AM Result Value Ref Range POCT GLU 124 (H) 70 - 110 mg/dL POCT GLUCOSE (AUTOMATED) Collection Time: 07/12/20 12:02 PM Result Value Ref Range POCT GLU 171 (H) 70 - 110 mg/dL POCT GLUCOSE (AUTOMATED) Collection Time: 07/12/20 4:55 PM Result Value Ref Range POCT GLU 159 (H) 70 - 110 mg/dL POCT GLUCOSE (AUTOMATED) Collection Time: 07/12/20 7:09 PM Result Value Ref Range POCT GLU 147 (H) 70 - 110 mg/dL N-TERMINAL PRO-BNP Collection Time: 07/13/20 4:27 AM Result Value Ref Range NT-proBNP 21,700 (H) <=450 pg/mL BASIC METABOLIC PANEL (NA, K, CL, CO2, GLUCOSE, BUN, CREATININE, CA) Collection Time: 07/13/20 4:27 AM Result Value Ref Range NA 130 (L) 135 - 145 mmol/L K 4.5 3.5 - 5.0 mmol/L CL 99 98 - 108 mmol/L CO2 TOTAL 22 (L) 23 - 31 mmol/L AGAP 9 2 - 16 BUN 37 (H) 7 - 23 mg/dL GLUCOSE 126 (H) 70 - 110 mg/dL CREATININE 3.57 (H) 0.50 - 1.04 mg/dL CALCIUM 8.6 8.6 - 10.6 mg/dL eGFR Calculation (Non-) 12.3 mL/min/1.73m2 eGFR Calculation () 14.9 mL/min/1.73m2 CBC WITH DIFF Collection Time: 07/13/20 4:27 AM Result Value Ref Range WBC 7.40 4.30 - 11.10 10*3/L RBC 4.34 3.93 - 5.25 10*6/L HGB 11.3 (L) 11.6 - 15.0 g/dL HCT 34.0 (L) 35.7 - 45.2 % MCV 78.3 (L) 80.6 - 95.5 fL MCH 26.0 25.9 - 32.8 pg MCHC 33.2 31.6 - 35.1 g/dL RDW-SD 50.2 (H) 39.0 - 49.9 fL RDW-CV 18.1 (H) 12.0 - 15.5 % PLT 228 166 - 358 10*3/L MPV 11.5 9.5 - 12.9 fL NRBC/100 WBC 0.0 0.0 - 10.0 /100 WBCs NRBC x10^3 <0.01 10*3/L GRAN MAT (NEUT) % 73.0 % IMM GRAN % 0.30 % LYMPH % 9.5 % MONO % 13.9 % EOS % 2.4 % BASO % 0.9 % GRAN MAT x10^3(ANC) 5.40 1.88 - 7.09 10*3/uL IMM GRAN x10^3 <0.03 0.00 - 0.06 10*3/uL LYMPH x10^3 0.70 (L) 1.32 - 3.29 10*3/uL MONO x10^3 1.03 (H) 0.33 - 0.92 10*3/uL EOS x10^3 0.18 0.03 - 0.39 10*3/uL BASO x10^3 0.07 0.01 - 0.07 10*3/uL URIC ACID Collection Time: 07/13/20 4:27 AM Result Value Ref Range URIC ACID 9.7 (H) 2.9 - 6.0 mg/dL POCT GLUCOSE (AUTOMATED) Collection Time: 07/13/20 7:15 AM Result Value Ref Range POCT GLU 121 (H) 70 - 110 mg/dL POCT GLUCOSE (AUTOMATED) Collection Time: 07/13/20 11:21 AM Result Value Ref Range POCT GLU 193 (H) 70 - 110 mg/dL POCT GLUCOSE (AUTOMATED) Collection Time: 07/13/20 4:40 PM Result Value Ref Range POCT GLU 123 (H) 70 - 110 mg/dL Current Facility-Administered Medications Medication Dose Route Frequency Last Rate Last Dose [START ON 07/14/2020] furosemide (LASIX) tablet 40 mg 40 mg Oral DAILY sodium chloride tablet 1 g 1 g Oral QID 1 g at 07/13/202001 cefTRIAXone (ROCEPHIN) 1,000 mg in NaCl 0.9% (NS) 50 mL MINI-BAG 1,000 mg IV Piggyback Q12H ABX 1,000 mg at 07/13/201809 insulin glargine (LANTUS U-100) injection 20 Units 20 Units Subcutaneous QHS 10 Units at 07/13/201999 lactobacillus acidophilus (ACIDOPHILLUS) 25 million cell -100 mg captab 1 tablet 1 tablet Oral BID 1 tablet at 07/13/202001 calcitrioL (ROCALTROL) capsule 0.5 mcg 0.5 mcg Oral DAILY 0.5 mcg at 07/13/20 0847 magnesium hydroxide (MILK OF MAGNESIA) 400 mg/5 mL suspension 30 mL 30 mL Oral TIDPRN Polyethylene Glycol 3350 (MIRALAX) powder 17 g 17 g Oral BID 17 g at 07/13/202002 sennosides (SENOKOT) tablet 8.6 mg 8.6 mg Oral BID 8.6 mg at 07/13/202001 dextrose 50 % in water (D50W) injection 25 mL 25 mL Slow IV Push PRN diphenhydrAMINE (BENADRYL) tablet 25 mg 25 mg Oral Q4HPRN 25 mg at 07/12/201950 enoxaparin (LOVENOX) injection 30 mg 30 mg Subcutaneous DAILY 30 mg at 07/13/20 08 glucagon (GLUCAGEN DIAGNOSTIC KIT) injection 1 mg 1 mg Intramuscular PRN Sliding Scale Insulin - Lispro (HumaLOG) + Fsbg Testing Subcutaneous TID MEALS+HS Stopped at1 1700 acetaminophen (TYLENOL) tablet 650 mg 650 mg Oral Q6HPRN 650 mg at 07/11/20 0245 ALPRAZolam (XANAX) tablet 0.25 mg 0.25 mg Oral [id number] 0.25 mg at 07/12/20 2343 amiodarone (PACERONE) tablet 200 mg 200 mg Oral QHS 200 mg at 07/13/202001 atorvastatin (LIPITOR) tablet 40 mg 40 mg Oral QHS 40 mg at 07/13/202001 clopidogreL (PLAVIX) tablet 75 mg 75 mg Oral DAILY 75 mg at 07/13/20 0847 fenofibrate micronized (LOFIBRA) capsule 134 mg 134 mg Oral DAILY 134 mg at 07/13/20 0847 FLUoxetine (PROZAC) capsule 20 mg 20 mg Oral DAILY 20 mg at 07/13/20 0847 hydrALAZINE (APRESOLINE) tablet 25 mg 25 mg Oral Q6HPRN 25 mg at 07/08/202206 pantoprazole (PROTONIX) EC tablet 40 mg 40 mg Oral DAILY 40 mg at 07/13/20 0847 primidone (MYSOLINE) tablet 50 mg 50 mg Oral BID 50 mg at 07/13/202001 SITagliptin (JANUVIA) tablet 50 mg 50 mg Oral DAILY 50 mg at 07/13/20 0847 Lucina Oneil MD - 07/13/2020 8:39 AM CDT [facility] Hospitalist Progress Note DATE OF SERVICE: 07/13/2020 SUBJECTIVE: No acute events overnight. Denies any chest pain, dyspnea, N/V, or other pain. Reports some BLE since lasix held. Tolerating diet. CURRENT MEDICATIONS - reviewed. Scheduled: sodium chloride, 1 g, QID cefTRIAXone (ROCEPHIN) IV Piggyback, 1,000 mg, Q12H ABX insulin glargine, 20 Units, QHS lactobacillus acidophilus, 1 tablet, BID calcitrioL, 0.5 mcg, DAILY Polyethylene Glycol 3350, 17 g, BID sennosides, 8.6 mg, BID enoxaparin (LOVENOX) SC Syringe, 30 mg, DAILY insulin lispro (human), , TID MEALS+HS amiodarone, 200 mg, QHS atorvastatin, 40 mg, QHS clopidogreL, 75 mg, DAILY fenofibrate micronized, 134 mg, DAILY FLUoxetine, 20 mg, DAILY pantoprazole, 40 mg, DAILY primidone, 50 mg, BID SITagliptin, 50 mg, DAILY PRN: magnesium hydroxide, 30 mL, TIDPRN dextrose 50 % in water (D50W), 25 mL, PRN diphenhydrAMINE, 25 mg, Q4HPRN glucagon, 1 mg, PRN acetaminophen, 650 mg, Q6HPRN ALPRAZolam, 0.25 mg, [id number] hydrALAZINE, 25 mg, Q6HPRN Continuous IV Medications/Drips: PHYSICAL EXAM: Temp: [36.2 C (97.2 F)-37.1 C (98.8 F)] Pulse: [68-89] Resp: [17-18] BP: (103-147)/(61-82) Intake/Output: Intake/Output Summary (Last 24 hours) at 07/13/2020 0840 Last data filed at 07/13/2020 0335 Gross per 24 hour Intake 1184 ml Output Net 1184 ml Constitutional: comfortable, NAD, sitting up in bed, able to ambulate to bathroom, well nourished Skin: no rash, normal turgor, no palpable lesions Eyes: EOM, PERRLA, conjunctiva normal, anicteric sclerae ENT: no oral lesions, no abnormalities of external ears or nose, no neck stiffness Cardiovascular: regular rate and rhythm, +mild lower extremity edema Respiratory: CTA bilaterally, symmetric expansion, no retractions GI: soft, NT/ND, +BS : No hooker in place Musculoskeletal: no redness, warmth, or swelling of the joints. No clubbing, cyanosis. Mild BLE edema. Neurologic: No focal deficits. No myoclonus or seizures. Awake, alert. Psychiatric: oriented x3, appropriate mood and affect, no delirium LABS/IMAGING - reviewed, pertinent results as below: CBC BMP PT/INR WBC (10*3/L) Date Value 07/13/2020 7.40 NA (mmol/L) Date Value 07/13/2020 130 (L) No results found for: PT RBC (10*6/L) Date Value 07/13/2020 4.34 K (mmol/L) Date Value 07/13/2020 4.5 INR (no units) Date Value 07/07/2020 1.3 PLT (10*3/L) Date Value 07/13/2020 228 CALCIUM (mg/dL) Date Value 07/13/2020 8.6 HGB (g/dL) Date Value 07/13/2020 11.3 (L) CL (mmol/L) Date Value 07/13/2020 99 aPTT HCT (%) Date Value 07/13/2020 34.0 (L) BUN (mg/dL) Date Value 07/13/2020 37 (H) APTT Patient (Seconds) Date Value 07/07/2020 25 CREATININE (mg/dL) Date Value 07/13/2020 3.57 (H) IMAGING: Xr Chest 1 Vw Result Date: 07/12/2020 Findings and Impression: No significant change in appearance of lungs or cardiomediastinal silhouette. Persistent cardiomegaly with single AICD electrodes projecting over the left chest. No raina pulmonary edema. Sternotomy no pleural effusion or pneumothorax. Changes. Prominent aortic arch and descen ding thoracic aortic calcifications. Xr Chest 1 Vw Result Date: 07/07/2020 Impression: Cardiomegaly. No lung consolidation. Us Retroperitoneal Complete Result Date: 07/12/2020 No significant appreciable renal atrophy or cortical thinning. Pre and postvoid residuals as above. Bilateral renal cysts and suspected sub-5 mm nonobstructive left nephrolithiasis. Septated right upper renal pole cyst without definite vascular flow within the septation as above. Small volume ascites layering in the dependent pelvis. Partially visualized trace right pleural effusion. Ct Angiogram Lower Extremity Bilateral W Contrast Result Date: 07/11/2020 NO SIGNIFICANT ILIOFEMORAL ARTERIAL OCCLUSIVE DISEASE ALTHOUGH DIFFUSE CALCIFICATIONS ARE CONSISTENTWITH LONG-STANDING DIABETES. DIFFUSE LOWER EXTREMITY SOFT TISSUE SWELLING MAY BE CARDIAC OR FLUID OVERLOAD IN ORIGIN. 50- 60% FOCAL LEFT MID POPLITEAL STENOSIS WITH PRIMARILY POSTERIOR TIBIAL AND PERONEAL ARTERY OUTFLOW TO THE LEFT FOOT. RIGHT POPLITEAL ARTERY POORLY VISUALIZED DUE TO ARTIFACT FROM KNEE PROSTHESIS. HOWEVER, OCCLUSIVE DISEASE IS PRIMARILY BELOW THE KNEE FROM THE RIGHT ANTERIOR TIBIAL AND PERONEAL ARTERIES WITH MULTIPLE STENOSES AFFECTING THE POSTERIOR TIBIAL ARTERY. FINDINGS: PELVIS: The visualized portions of the external iliac arteries show calcifications without focal stenosis. The common and internal iliac arteries are not visualized but the branches of the internal iliac arteries both opacify. The uterus is atrophic and otherwise unremarkable. No pelvic mass or lymphadenopathy. Patient is status post right total hip arthroplasty. No pelvic bony lesions focally. LEFT LOWER EXTREMITY: Common femoral and profunda femoral artery widely patent. Calcified but patent left SFA with some moderate disease in the adductor canal. Popliteal artery mildly diseased with at least 50-60 % ca lcific stenosis in its midportion at the level of the tibial plateau. There is 3 vessel below the knee left leg runoff with alternating stenoses primarily in the territory of the anterior tibial artery. Anterior and posterior and peroneal arteries flow into the left foot, however. There is diffuse soft tissue edema throughout the left lower extremity. RIGHT LOWER EXTREMITY: As on the left, the right SFA is moderately calcified with mild disease at the adductor canal. Right common femoral and profunda femoral artery widely patent. The right popliteal artery is patent and is poorly visualized in its midportion due to the presence of a right knee prosthesis. However, there are no collaterals to suggest significant stenosis at the popliteal level. Infrapopliteal runoff is primarily from the anterior tibial and peroneal arteries. The right posterior tibial artery shows several occlusions and stenosesbut is reconstituted distally at the level of the right ankle. ASSESSMENT/PLAN: Nasir Margarita is a 79 year old female with PMH significant for atrial fibrillation, CAD s/p CABG,DM, HTN, CHF, admitted to the hospital with: #Acute on chronic systolic and diastolic CHF (follows Dr. Delgado outpatient) #NSTEMI type 2 - Likely due to infection and volume overload - Received IV lasix then held for PIOTR. Strict I/Os. - Echo done, showed EF 20-25%, elevated venous pressures - Cardiology on board - Not on beta alvina or ACEI/ARB or aldactone due to low bp and PIOTR #E. Coli Urinary tract infection - F/u urine cx - IV ceftriaxone day 6, d/c on discharge #PIOTR on CKD 3 - Likely ATN 2/2 contrast and hypotension - Holding lasix, aldactone - Trend Cr -- improving (3.22 -> 3.76 -> 3.57 today) - Nephrology consult (Dr. Shaw) -- Given lasix IV x 1 dose, hold aldactone; depending on Cr, willconsider resume lasix, aldactone tomorrow. #Hyponatremia - Nephrology onboard - start salt tabs #Hx CAD s/p CABG and AVR, chronic a-fib - On aspirin, plavix, amiodarone - Defer AC to cardiology; per cardiology not on AC due to bleeding risk - S/p ICD #IDDM, A1c 11.2 - Takes toujeo 40u qd, januvia - On lantus 20u here; hold for tonight due to PIOTR - Carb restriction Prophylaxis: DVT- enoxaparin Stress Ulcer: no indication for prophylaxis Code Status: Full, advance care planning discussed on 07/11/2020 Inpatient status: Med/Surg Disposition: Home when medically cleared by nephrology, cardiology and renal function improves. Outpatient needs regular monitoring of BMP and f/u with cardiology and nephrology [place] Prescription Drug Monitoring Program ([employer]) was reviewed during stay for compliance with narcotics and other controlled substances prior to prescribing medications and found no evidence of irregularity or aberrant behavior. Lucina Salomon MD Provider #[id number] Hospitalist/Clinical Educational Therapy Teacher [facility] ([facility])-[facility] ([facility]) Katarina Ennis MD - 07/13/2020 8:31 AM CDT [facility] Cardiology progress note Date of Service: 07/13/2020 Nasir Das is a 79 year old female hospitalized for HFrEF exacerbation and UTI. Feeling betterfrom cardiac stand point. No new cardiac complaints noted. PHYSICAL EXAM Vitals: 07/12/20 1904 07/12/20 2308 07/13/20 0335 07/13/20 0713 BP: 127/62 130/74 (!) 145/79 (!) 143/82 Pulse: 78 89 79 78 Resp: 18 18 18 17 Temp: 36.3 C (97.3 F) 36.3 C (97.3 F) 36.2 C (97.2 F) 36.3 C (97.3 F) TempSrc: Temporal Artery Temporal Artery Temporal Artery Temporal Artery SpO2: 95% 92% 97% 95% Weight: 175 lb 3.2 oz (79.5 kg) Height: General: no apparent distress HEENT: normocephalic atraumatic Neck: supple, no lymphadenopathy, no bruits, no JVD Lungs: clear to auscultation bilaterally Cardio: S1, S2, regular; no murmurs, rubs or gallops Abdomen: non-distended : not examined Rectal: not examined Extremities: no clubbing, cyanosis, + edema Skin: no rashes Neuro: no focal deficits Medications: I have reviewed the patient's medications; see Medication Reconciliation. Labs: I have reviewed the patient's labs. CBC BMP PT/INR WBC (10*3/L) Date Value 07/13/2020 7.40 NA (mmol/L) Date Value 07/13/2020 130 (L) No results found for: PT PLT (10*3/L) Date Value 07/13/2020 228 K (mmol/L) Date Value 07/13/2020 4.5 INR (no units) Date Value 07/07/2020 1.3 HGB (g/dL) Date Value 07/13/2020 11.3 (L) BUN (mg/dL) Date Value 07/13/2020 37 (H) HCT (%) Date Value 07/13/2020 34.0 (L) CREATININE (mg/dL) Date Value 07/13/2020 3.57 (H) LIPID PROFILE GLUCOSE (mg/dL) Date Value 07/13/2020 126 (H) CHOL (mg/dL) Date Value 09/03/2016 187 TSH LDL CHOL (mg/dL) Date Value 09/03/2016 89 TSH (mIU/L) Date Value 07/07/2020 4.81 (H) CARDIAC ENZYMES HDL (mg/dL) Date Value 09/03/2016 47 (L) CK (U/L) Date Value 07/11/2020 40 TRIG (mg/dL) Date Value 09/03/2016 255 (H) LFTs No results found for: CKMB AST(SGOT) (U/L) Date Value 07/11/2020 27 TROPONIN I (ng/mL) Date Value 07/12/2020 0.089 (H) ALT(SGPT) (U/L) Date Value 06/04/2018 33 ALTv (U/L) Date Value 07/11/2020 11 No results found for: BNP LDL CHOL (mg/dL) Date Value 09/03/2016 89 Recent Labs 07/12/20 0322 TROPNI 0.089* There are no current results on file for these tests and/or test for 1 year. 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 Improving clinically. Holding IV lasix and PO spironolactone. Low salt diet, I/O, daily weight. She has not been on beta alvina or ACEI/ARB probably due to low BP. ECHO showed LVEF 20-25% with elevated venous pressure. ECHO showed stable findings compared to last ECHO in [facility]. Chronic Afib with controlled rate: Will continue amiodarone 200 mg daily. Not on anticoagulation probably due to bleeding risk. PIOTR: As per nephrology. Holding diuresis. Probably ATN. Troponin elevation: suspect type 2 [place] due to UTI, HF exacerbation. ECHO showed stable findings compared to last ECHO in [facility]. CAD: s/p CABG. Continue plavix and lipitor. S/p AVR: ECHO showed stable parameters. HTN: Controlled. Hold spironolactone due to PIOTR.. HLD: continue lipitor [address] 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 Ken Zhang MD 07/13/2020 8:31 AM Educational Therapy Teacher, Division of Cardiology [facility] Katt Arevalo MD - 07/12/2020 8:48 PM CDT [facility] Hospitalist Progress Note SUBJECTIVE: No acute events overnight. Leg edema and dyspnea improved from admission Worsening renal function Holding diruetics CURRENT MEDICATIONS - reviewed. Current Facility-Administered Medications Medication Dose Route Frequency Last Rate Last Dose sodium chloride tablet 1 g 1 g Oral QID 1 g at 07/12/201941 cefTRIAXone (ROCEPHIN) 1,000 mg in NaCl 0.9% (NS) 50 mL MINI-BAG 1,000 mg IV Piggyback Q12H ABX 1,000 mg at 07/12/201941 insulin glargine (LANTUS U-100) injection 20 Units 20 Units Subcutaneous QHS 20 Units at 07/12/20 193 lactobacillus acidophilus (ACIDOPHILLUS) 25 million cell -100 mg captab 1 tablet 1 tablet Oral BID 1 tablet at 07/12/201941 calcitrioL (ROCALTROL) capsule 0.5 mcg 0.5 mcg Oral DAILY 0.5 mcg at 07/12/20 0900 magnesium hydroxide (MILK OF MAGNESIA) 400 mg/5 mL suspension 30 mL 30 mL Oral TIDPRN Polyethylene Glycol 3350 (MIRALAX) powder 17 g 17 g Oral BID 17 g at 07/12/201941 sennosides (SENOKOT) tablet 8.6 mg 8.6 mg Oral BID 8.6 mg at 07/12/201943 dextrose 50 % in water (D50W) injection 25 mL 25 mL Slow IV Push PRN diphenhydrAMINE (BENADRYL) tablet 25 mg 25 mg Oral Q4HPRN 25 mg at 07/12/201950 enoxaparin (LOVENOX) injection 30 mg 30 mg Subcutaneous DAILY 30 mg at 07/12/20 0901 glucagon (GLUCAGEN DIAGNOSTIC KIT) injection 1 mg 1 mg Intramuscular PRN Sliding Scale Insulin - Lispro (HumaLOG) + Fsbg Testing Subcutaneous TID MEALS+HS Stopped at1 0800 acetaminophen (TYLENOL) tablet 650 mg 650 mg Oral Q6HPRN 650 mg at 07/11/20 0245 ALPRAZolam (XANAX) tablet 0.25 mg 0.25 mg Oral [id number] 0.25 mg at 07/10/20 2254 amiodarone (PACERONE) tablet 200 mg 200 mg Oral QHS 200 mg at 07/12/201941 atorvastatin (LIPITOR) tablet 40 mg 40 mg Oral QHS 40 mg at 07/12/201941 clopidogreL (PLAVIX) tablet 75 mg 75 mg Oral DAILY 75 mg at 07/12/20 0900 fenofibrate micronized (LOFIBRA) capsule 134 mg 134 mg Oral DAILY 134 mg at 07/12/20 0900 FLUoxetine (PROZAC) capsule 20 mg 20 mg Oral DAILY 20 mg at 07/12/20 0900 hydrALAZINE (APRESOLINE) tablet 25 mg 25 mg Oral Q6HPRN 25 mg at 07/08/20 0001 pantoprazole (PROTONIX) EC tablet 40 mg 40 mg Oral DAILY 40 mg at 07/12/20 0900 primidone (MYSOLINE) tablet 50 mg 50 mg Oral BID 50 mg at 07/12/201941 SITagliptin (JANUVIA) tablet 50 mg 50 mg Oral DAILY 50 mg at 07/12/20 0900 PHYSICAL EXAM: BP 127/62 | Pulse 78 | Temp 36.3 C (97.3 F) (Temporal Artery) | Resp 18 | Ht 1.727 m (5' 8") | Wt 76.5 kg (168 lb 9.6 oz) | SpO2 95% | BMI 25.64 kg/m General: No respiratory distress RRR Anicteric sclera Improved leg edema Good air entry b/l Skin: No rash or lesions Neuro: AAOx3, no focal deficits Psych: Normal affect LABS/IMAGING - reviewed, pertinent results as below: CBC BMP PT/INR WBC (10*3/L) Date Value 07/12/2020 8.84 NA (mmol/L) Date Value 07/12/2020 129 (L) No results found for: PT RBC (10*6/L) Date Value 07/12/2020 4.22 K (mmol/L) Date Value 07/12/2020 5.0 INR (no units) Date Value 07/07/2020 1.3 PLT (10*3/L) Date Value 07/12/2020 213 CALCIUM (mg/dL) Date Value 07/12/2020 8.4 (L) HGB (g/dL) Date Value 07/12/2020 10.9 (L) CL (mmol/L) Date Value 07/12/2020 98 aPTT HCT (%) Date Value 07/12/2020 33.2 (L) BUN (mg/dL) Date Value 07/12/2020 38 (H) APTT Patient (Seconds) Date Value 07/07/2020 25 CREATININE (mg/dL) Date Value 07/12/2020 3.76 (H) IMAGING- Hospital Encounter on 07/07/20 CT ANGIOGRAM LOWER EXTREMITY BILATERAL W CONTRAST Narrative PROCEDURE: CT angiogram of the abdomen and pelvis and lower extremities INDICATION: Coronary artery disease, diabetes, hypertension. History of aortic valve replacement and coronary artery bypass surgery. Coronary artery disease post bypass. Bilateral leg swelling and claudication. Thin section CT angiography was performed in the axial plane after the rapid intravenous administration of contrast. No prior studies for comparison. Multiplanar reconstructions were performed as well as 3-D reformats. DOSE: 268 mgy-cm DLP Impression NO SIGNIFICANT ILIOFEMORAL ARTERIAL OCCLUSIVE DISEASE ALTHOUGH DIFFUSE CALCIFICATIONS ARE CONSISTENT WITH LONG-STANDING DIABETES. DIFFUSE LOWER EXTREMITY SOFT TISSUE SWELLING MAY BE CARDIAC OR FLUID OVERLOAD IN ORIGIN. 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 RIGHT POPLITEAL ARTERY POORLY VISUALIZED DUE TO ARTIFACT FROM KNEE PROSTHESIS. HOWEVER, OCCLUSIVE DISEASE IS PRIMARILY BELOW THE KNEE FROM THE RIGHT ANTERIOR TIBIAL AND PERONEAL ARTERIES WITH MULTIPLE STENOSES AFFECTING THE POSTERIOR TIBIAL ARTERY. FINDINGS: PELVIS: The visualized portions of the external iliac arteries show calcifications without focal stenosis. The common and internal iliac arteries are not visualized but the branches of the internal iliac arteries both opacify. The uterus is atrophic and otherwise unremarkable. No pelvic mass or lymphadenopathy. Patient is status post right total hip arthroplasty. No pelvic bony lesions focally. LEFT LOWER EXTREMITY: Common femoral and profunda femoral artery widely patent. Calcified but patent left SFA with some moderate disease in the adductor canal. Popliteal artery mildly diseased with at least 50-60 % calcific stenosis in its midportion at the level of the tibial plateau. There is 3 vessel below the knee left leg runoff with alternating stenoses primarily in the territory of the anterior tibial artery. Anterior and posterior and peroneal arteries flow into the left foot, however. There is diffuse soft tissue edema throughout the left lower extremity. RIGHT LOWER EXTREMITY: As on the left, the right SFA is moderately calcified with mild disease at the adductor canal. Right common femoral and profunda femoral artery widely patent. The right popliteal artery is patent and is poorly visualized in its midportion due to the presence of a right knee prosthesis. However, there are no collaterals to suggest significant stenosis at the popliteal level. Infrapopliteal runoff is primarily from the anterior tibial and peroneal arteries. The right posterior tibial artery shows several occlusions and stenoses but is reconstituted distally at the level of the right ankle. US RETROPERITONEAL COMPLETE Narrative ULTRASOUND RENAL INDICATION: PIOTR. Eval postvoid residuals. COMPARISON: None. FINDINGS: Partially visualized trace right pleural effusion. Right kidney measures 9.2 x 4.5 x 3.7 cm. Right inferior renal pole contains a 1.1 cm cyst with thin septation but no appreciable vascular flow on Doppler (velocity scale set relatively high at 18.5 cm/s). There is normal renal cortical echogenicity and corticomedullary differentiation. No hydronephrosis or renal calculi. There is qualitatively normal perfusion on color doppler interrogation. Left kidney measures 10.7 x 5.0 x 4.3 cm. . Left lower renal pole contains a sub-5 mm nonshadowing echogenic focus which probably represents a small nonobstructive stone versus parenchymal calcification. Left upper renal pole contains a 1.0 cm simple cyst. There is normal renal cortical echogenicity and corticomedullary differentiation. No hydronephrosis. There is qualitatively normal perfusion on color doppler interrogation. Small amount of free fluid within the dependent pelvis. Pre and post void residuals measure 30.1 mL and 15.9 mm, respectively. Impression No significant appreciable renal atrophy or cortical thinning. Pre and postvoid residuals as above. Bilateral renal cysts and suspected sub-5 mm nonobstructive left nephrolithiasis. Septated right upper renal pole cyst without definite vascular flow within the septation as above. Small volume ascites layering in the dependent pelvis. Partially visualized trace right pleural effusion. XR CHEST 1 VW Narrative PORTABLE CHEST RADIOGRAPH History: chf Comparison: 07/07/2020 TECHNIQUE: AP view of the chest. Impression Findings and Impression: No significant change in appearance of lungs or cardiomediastinal silhouette. Persistent cardiomegaly with single AICD electrodes projecting over the left chest. No raina pulmonary edema. Sternotomy no pleural effusion or pneumothorax. Changes. Prominent aortic arch and descending thoracic aortic calcifications. XR CHEST 1 VW Narrative Exam: XR CHEST 1 VW 07/07/2020 5:18 PM Clinical History: pneumonia Comparison: Radiograph of 02/20/2018 Technique: AP view of the chest Findings: The heart is enlarged. A left chest wall pacemaker lead overlies the center of the cardiac shadow. The lungs are clear. Aortic knob calcification. Sternotomy wires are noted. No acute osseous abnormality. Subdiaphragmatic vascular calcification. Gas containing substernal abdominal wall hernia is noted. Impression Impression: Cardiomegaly. No lung consolidation. ASSESSMENT/PLAN Nasir Das is a 79 year old female with PMH as listed above, admitted to the hospital with: Acute on chronic systolic and diastolic CHF Received IV lasix then held for PIOTR. Strict I/Os. Echo done, showed EF 20-25%, elevated venous pressures Cardiology on board Not on beta alvina or ACEI/ARB or aldactone due to low bp and PIOTR E Coli Urinary tract infection F/u urine cx IV ceftriaxone day 5/7, d/c on discharge NSTEMI type 2 Likely due to infection and volume overload Cardiology consulted PIOTR on CKD 3 Hold lasix Nephrology consult Dr. Shaw Likely ATN Hyponatremia Nephrology started salt tabs Hx CAD s/p CABG and AVR, chronic a-fib On aspirin, plavix, amiodarone Defer AC to cardiology; per cardiology not on AC due to bleeding risk S/p ICD IDDM, A1c 11.2 Takes toujeo 40u qd, januvia On lantus 20u here; hold for tonight due to PIOTR Carb restriction Prophylaxis: DVT- enoxaparin Stress Ulcer: no indication for prophylaxis Code Status: Full, advance care planning discussed on 07/11/2020 Disposition: Home when medically cleared by nephrology, cardiology and renal function improves Outpatient needs regular monitoring of BMP and f/u with cardiology and nephrology Amanda Baires MD - 07/12/2020 8:44 AM CDT [facility] Cardiology progress note Date of Service: 07/12/2020 Nasir Das is an 79 year old female hospitalized for HFrEF exacerbation and UTI. Feeling better. Stable edema. Rising BUN and Cr. PHYSICAL EXAM Vitals: 07/11/20 1917 07/11/20 2334 07/12/20 0310 07/12/20 0724 BP: 132/66 117/66 124/55 130/64 Pulse: 77 82 72 76 Resp: 18 18 18 18 Temp: 36.3 C (97.4 F) 36.7 C (98.1 F) 36.4 C (97.5 F) 37.1 C (98.8 F) TempSrc: Temporal Artery Temporal Artery Temporal Artery SpO2: 96% 95% 95% 92% Weight: 76.5 kg (168 lb 9.6 oz) Height: General: alert and oriented x 3 (person, place and date/time); no apparent distress HEENT: normocephalic atraumatic Neck: supple, no lymphadenopathy, no bruits, no JVD Lungs: clear to auscultation bilaterally Cardio: S1, S2, normal rate, irregular; no murmurs, rubs or gallops Abdomen: non-distended : not examined Rectal: not examined Extremities: no clubbing, cyanosis, + trace leg edema Skin: no rashes Neuro: no focal deficits Medications: I have reviewed the patient's medications; see Medication Reconciliation. Labs: I have reviewed the patient's labs. 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 Leg edema stable. Dur to continued rise in BUN and Cr, will hold IV lasix and PO spironolactone. Low salt diet, I/O, daily weight. She has not been on beta alvina or ACEI/ARB probably due to low BP. ECHO showed LVEF 20-25% with elevat ed venous pressure. Chronic Afib with controlled rate--Will continue amiodarone 200 mg daily. Not on anticoagulation probably due to bleeding risk. PIOTR--per nephrology. Holding diuresis. Probably ATN. Troponin elevation--suspect type 2 [place] due to UTI, HF exacerbation etc. ECHO showed stable findings compared to last ECHO in [place]. CAD--s/p CABG. Continue plavix and lipitor. S/p AVR--ECHO showed stable parameters. S/p ICD--seems epicardial lead. HTN--well controlled. Hold spironolactone due to PIOTR.. HLD--continue lipitor. UTI--per primary team. Amanda Quick MD, [facility], [employer] Educational [employer] Teacher, Division of Cardiology [facility] Jayden Price DO - 07/12/2020 7:13 AM CDT Nephrology Progress Note Admit Date: 07/07/2020 CPS stable without CP or SOB. No acute events overnight. Good urine output. +Appetite Temp: [36.3 C (97.3 F)-37.1 C (98.8 F)] Pulse: [68-82] Resp: [18] BP: (103-147)/(55-78) MAP (mmHg): [77-83] Vitals and medications reviewed in the chart. Blood work and imaging reviewed in the chart. PE: Gen: NAD HEENT: NCAT. MMM. Neck: Supple. No LAD. Lungs: CTA CVS: RRR Abd: Soft. NT. +BS Ext: No C/C. LE Edema none Skin: No rash Psych: AAO Neuro: Normal speech ASSESSMENT/PLAN Nasir Das is a 79 year old female with PMH as listed above, admitted to the hospital with: The primary encounter diagnosis was Hyperglycemia. Diagnoses of Lactic acidosis, New onset a-fib, Acute congestive heart failure, unspecified heart failure type, Lymphedema, Elevated troponin, Congestive heart failure, unspecified HF chronicity, unspecified heart failure type, and Claudication of bothlower extremities were also pertinent to this visit. A/ PIOTR in the setting of diuresis. Possible ATN due to hypotension/ IV contrast. Hyponatremia Hypocalcemia CKD III with proteinuria HTN with CKD/ CHF complicated by episodes of hypotension Systolic CHF, A/C DM II with CKD A1C 11.2 Anemia in chronic illness. Iron Deficiency 10%. Acute E.coli cystitis P/ Continue current POC and Medications other than changes listed below. Please see chart and orders for complete details. Agree with holding diuretic at this time. Start oral salt tab. Renal US for PIOTR. Continue abx. No NSAIDs. AM labs. Daily weight. Consider PT as tolerated. 07/12/20 0310 Weight: 76.5 kg (168 lb 9.6 oz) Height: Vitals: 07/12/20 0724 07/12/20 1025 07/12/20 1630 07/12/20 1904 BP: 130/64 103/61 (!) 147/78 127/62 Pulse: 76 68 80 78 Resp: 18 18 18 18 Temp: 37.1 C (98.8 F) 37.1 C (98.7 F) 37.1 C (98.8 F) 36.3 C (97.3 F) TempSrc: Temporal Artery SpO2: 92% 94% 96% 95% Weight: Height: Intake/Output Summary (Last 24 hours) at 07/11/2020 2149 Last data filed at 07/11/2020 1854 Gross per 24 hour Intake 643 ml Output 270 ml Net 373 ml Hospital Encounter on 07/07/20 CT ANGIOGRAM LOWER EXTREMITY BILATERAL W CONTRAST Narrative PROCEDURE: CT angiogram of the abdomen and pelvis and lower extremities INDICATION: Coronary artery disease, diabetes, hypertension. History of aortic valve replacement and coronary artery bypass surgery. Coronary artery disease post bypass. Bilateral leg swelling and claudication. Thin section CT angiography was performed in the axial plane after the rapid intravenous administration of contrast. No prior studies for comparison. Multiplanar reconstructions were performed as well as 3-D reformats. DOSE: 268 mgy-cm DLP Impression NO SIGNIFICANT ILIOFEMORAL ARTERIAL OCCLUSIVE DISEASE ALTHOUGH DIFFUSE CALCIFICATIONS ARE CONSISTENT WITH LONG-STANDING DIABETES. DIFFUSE LOWER EXTREMITY SOFT TISSUE SWELLING MAY BE CARDIAC OR FLUID OVERLOAD IN ORIGIN. 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 RIGHT POPLITEAL ARTERY POORLY VISUALIZED DUE TO ARTIFACT FROM KNEE PROSTHESIS. HOWEVER, OCCLUSIVE DISEASE IS PRIMARILY BELOW THE KNEE FROM THE RIGHT ANTERIOR TIBIAL AND PERONEAL ARTERIES WITH MULTIPLE STENOSES AFFECTING THE POSTERIOR TIBIAL ARTERY. FINDINGS: PELVIS: The visualized portions of the external iliac arteries show calcifications without focal stenosis. The common and internal iliac arteries are not visualized but the branches of the internal iliac arteries both opacify. The uterus is atrophic and otherwise unremarkable. No pelvic mass or lymphadenopathy. Patient is status post right total hip arthroplasty. No pelvic bony lesions focally. LEFT LOWER EXTREMITY: Common femoral and profunda femoral artery widely patent. Calcified but patent left SFA with some moderate disease in the adductor canal. Popliteal artery mildly diseased with at least 50-60 % calcific stenosis in its midportion at the level of the tibial plateau. There is 3 vessel below the knee left leg runoff with alternating stenoses primarily in the territory of the anterior tibial artery. Anterior and posterior and peroneal arteries flow into the left foot, however. There is diffuse soft tissue edema throughout the left lower extremity. RIGHT LOWER EXTREMITY: As on the left, the right SFA is moderately calcified with mild disease at the adductor canal. Right common femoral and profunda femoral artery widely patent. The right popliteal artery is patent and is poorly visualized in its midportion due to the presence of a right knee prosthesis. However, there are no collaterals to suggest significant stenosis at the popliteal level. Infrapopliteal runoff is primarily from the anterior tibial and peroneal arteries. The right posterior tibial artery shows several occlusions and stenoses but is reconstituted distally at the level of the right ankle. US RETROPERITONEAL COMPLETE Narrative ULTRASOUND RENAL INDICATION: PIOTR. Eval postvoid residuals. COMPARISON: None. FINDINGS: Partially visualized trace right pleural effusion. Right kidney measures 9.2 x 4.5 x 3.7 cm. Right inferior renal pole contains a 1.1 cm cyst with thin septation but no appreciable vascular flow on Doppler (velocity scale set relatively high at 18.5 cm/s). There is normal renal cortical echogenicity and corticomedullary differentiation. No hydronephrosis or renal calculi. There is qualitatively normal perfusion on color doppler interrogation. Left kidney measures 10.7 x 5.0 x 4.3 cm. . Left lower renal pole contains a sub-5 mm nonshadowing echogenic focus which probably represents a small nonobstructive stone versus parenchymal calcification. Left upper renal pole contains a 1.0 cm simple cyst. There is normal renal cortical echogenicity and corticomedullary differentiation. No hydronephrosis. There is qualitatively normal perfusion on color doppler interrogation. Small amount of free fluid within the dependent pelvis. Pre and post void residuals measure 30.1 mL and 15.9 mm, respectively. Impression No significant appreciable renal atrophy or cortical thinning. Pre and postvoid residuals as above. Bilateral renal cysts and suspected sub-5 mm nonobstructive left nephrolithiasis. Septated right upper renal pole cyst without definite vascular flow within the septation as above. Small volume ascites layering in the dependent pelvis. Partially visualized trace right pleural effusion. XR CHEST 1 VW Narrative PORTABLE CHEST RADIOGRAPH History: chf Comparison: 07/07/2020 TECHNIQUE: AP view of the chest. Impression Findings and Impression: No significant change in appearance of lungs or cardiomediastinal silhouette. Persistent cardiomegaly with single AICD electrodes projecting over the left chest. No raina pulmonary edema. Sternotomy no pleural effusion or pneumothorax. Changes. Prominent aortic arch and descending thoracic aortic calcifications. XR CHEST 1 VW Narrative Exam: XR CHEST 1 VW 07/07/2020 5:18 PM Clinical History: pneumonia Comparison: Radiograph of 02/20/2018 Technique: AP view of the chest Findings: The heart is enlarged. A left chest wall pacemaker lead overlies the center of the cardiac shadow. The lungs are clear. Aortic knob calcification. Sternotomy wires are noted. No acute osseous abnormality. Subdiaphragmatic vascular calcification. Gas containing substernal abdominal wall hernia is noted. Impression Impression: Cardiomegaly. No lung consolidation. Recent Results (from the past 48 hour(s)) COMP. METABOLIC PANEL (54430) Collection Time: 07/11/20 3:07 AM Result Value Ref Range NA 130 (L) 135 - 145 mmol/L K 4.7 3.5 - 5.0 mmol/L CL 96 (L) 98 - 108 mmol/L CO2 TOTAL 21 (L) 23 - 31 mmol/L AGAP 13 2 - 16 BUN 35 (H) 7 - 23 mg/dL GLUCOSE 114 (H) 70 - 110 mg/dL CREATININE 3.22 (H) 0.50 - 1.04 mg/dL TOTAL BILI 0.7 0.1 - 1.1 mg/dL CALCIUM 8.4 (L) 8.6 - 10.6 mg/dL T PROTEIN 5.5 (L) 6.3 - 8.2 g/dL ALBUMIN 2.8 (L) 3.5 - 5.0 g/dL ALK PHOS 93 34 - 122 U/L ALTv 11 5 - 35 U/L AST(SGOT) 27 13 - 40 U/L eGFR Calculation (Non-) 13.8 mL/min/1.73m2 eGFR Calculation () 16.7 mL/min/1.73m2 URINALYSIS Collection Time: 07/11/20 3:07 AM Result Value Ref Range APPEARANCE Hazy (A) Clear COLOR Yellow Yellow PH 5.0 4.8 - 8.0 SP GRAVITY 1.018 1.003 - 1.030 GLU U QUAL Normal Normal BLOOD 1+ (A) Negative KETONES Negative Negative PROTEIN 30 mg/dL (A) Negative UROBILIN Normal Normal BILIRUBIN Negative Negative NITRITE Negative Negative LEUK KARSTEN 25/uL (A) Negative RBC/HPF 3 0 - 3 HPF WBC/HPF 22 (H) 0 - 5 HPF BACTERIA Many (A) Negative WBC CLUMPS <1 <=1 HPF GRAN CASTS 35 (H) <=1 LPF CREATININE, URINE RANDOM Collection Time: 07/11/20 3:07 AM Result Value Ref Range CREAT U 74.3 mg/dL SODIUM, URINE RANDOM Collection Time: 07/11/20 3:07 AM Result Value Ref Range NA URINE 34 mmol/L MICROALBUMIN URINE Collection Time: 07/11/20 3:07 AM Result Value Ref Range CREAT U 74.1 mg/dL MICROALB U 182 (H) 0 - 45 ug/mL MICROAL/CR 246 (H) 0 - 30 mg/g of creatinine OSMOLALITY SERUM Collection Time: 07/11/20 3:07 AM Result Value Ref Range OSMOLALITY 286 278 - 305 mOsm/kg OSMOLALITY URINE Collection Time: 07/11/20 3:07 AM Result Value Ref Range OSMO U 304 50-1,100 mOsm/kg CBC WITH DIFF Collection Time: 07/11/20 3:07 AM Result Value Ref Range WBC 8.54 4.30 - 11.10 10*3/L RBC 4.27 3.93 - 5.25 10*6/L HGB 11.1 (L) 11.6 - 15.0 g/dL HCT 33.8 (L) 35.7 - 45.2 % MCV 79.2 (L) 80.6 - 95.5 fL MCH 26.0 25.9 - 32.8 pg MCHC 32.8 31.6 - 35.1 g/dL RDW-SD 50.4 (H) 39.0 - 49.9 fL RDW-CV 17.5 (H) 12.0 - 15.5 % PLT 201 166 - 358 10*3/L MPV 11.9 9.5 - 12.9 fL NRBC/100 WBC 0.0 0.0 - 10.0 /100 WBCs NRBC x10^3 <0.01 10*3/L GRAN MAT (NEUT) % 77.5 % IMM GRAN % 0.20 % LYMPH % 8.2 % MONO % 10.8 % EOS % 2.5 % BASO % 0.8 % GRAN MAT x10^3(ANC) 6.62 1.88 - 7.09 10*3/uL IMM GRAN x10^3 <0.03 0.00 - 0.06 10*3/uL LYMPH x10^3 0.70 (L) 1.32 - 3.29 10*3/uL MONO x10^3 0.92 0.33 - 0.92 10*3/uL EOS x10^3 0.21 0.03 - 0.39 10*3/uL BASO x10^3 0.07 0.01 - 0.07 10*3/uL N-TERMINAL PRO-BNP Collection Time: 07/11/20 3:07 AM Result Value Ref Range NT-proBNP 19,300 (H) <=450 pg/mL URIC ACID Collection Time: 07/11/20 3:07 AM Result Value Ref Range URIC ACID 10.1 (H) 2.9 - 6.0 mg/dL CREATINE KINASE Collection Time: 07/11/20 3:07 AM Result Value Ref Range CK 40 33 - 194 U/L UREA NITROGEN, URINE RANDOM Collection Time: 07/11/20 3:08 AM Result Value Ref Range UREA N UR 310 mg/dL POCT GLUCOSE (AUTOMATED) Collection Time: 07/11/20 8:00 AM Result Value Ref Range POCT GLU 101 70 - 110 mg/dL POCT GLUCOSE (AUTOMATED) Collection Time: 07/11/20 12:04 PM Result Value Ref Range POCT GLU 159 (H) 70 - 110 mg/dL POCT GLUCOSE (AUTOMATED) Collection Time: 07/11/20 4:44 PM Result Value Ref Range POCT GLU 160 (H) 70 - 110 mg/dL POCT GLUCOSE (AUTOMATED) Collection Time: 07/11/20 7:54 PM Result Value Ref Range POCT GLU 159 (H) 70 - 110 mg/dL URIC ACID Collection Time: 07/12/20 3:22 AM Result Value Ref Range URIC ACID 10.2 (H) 2.9 - 6.0 mg/dL OSMOLALITY SERUM Collection Time: 07/12/20 3:22 AM Result Value Ref Range OSMOLALITY 292 278 - 305 mOsm/kg TROPONIN I Collection Time: 07/12/20 3:22 AM Result Value Ref Range TROPONIN I 0.089 (H) <=0.034 ng/mL N-TERMINAL PRO-BNP Collection Time: 07/12/20 3:22 AM Result Value Ref Range NT-proBNP 19,400 (H) <=450 pg/mL BASIC METABOLIC PANEL (NA, K, CL, CO2, GLUCOSE, BUN, CREATININE, CA) Collection Time: 07/12/20 3:22 AM Result Value Ref Range NA 129 (L) 135 - 145 mmol/L K 5.0 3.5 - 5.0 mmol/L CL 98 98 - 108 mmol/L CO2 TOTAL 20 (L) 23 - 31 mmol/L AGAP 11 2 - 16 BUN 38 (H) 7 - 23 mg/dL GLUCOSE 133 (H) 70 - 110 mg/dL CREATININE 3.76 (H) 0.50 - 1.04 mg/dL CALCIUM 8.4 (L) 8.6 - 10.6 mg/dL eGFR Calculation (Non-) 11.5 mL/min/1.73m2 eGFR Calculation () 14.0 mL/min/1.73m2 CBC WITH DIFF Collection Time: 07/12/20 3:22 AM Result Value Ref Range WBC 8.84 4.30 - 11.10 10*3/L RBC 4.22 3.93 - 5.25 10*6/L HGB 10.9 (L) 11.6 - 15.0 g/dL HCT 33.2 (L) 35.7 - 45.2 % MCV 78.7 (L) 80.6 - 95.5 fL MCH 25.8 (L) 25.9 - 32.8 pg MCHC 32.8 31.6 - 35.1 g/dL RDW-SD 49.8 39.0 - 49.9 fL RDW-CV 17.5 (H) 12.0 - 15.5 % PLT 213 166 - 358 10*3/L MPV 11.9 9.5 - 12.9 fL NRBC/100 WBC 0.0 0.0 - 10.0 /100 WBCs NRBC x10^3 <0.01 10*3/L GRAN MAT (NEUT) % 80.0 % IMM GRAN % 0.50 % LYMPH % 5.5 % MONO % 11.5 % EOS % 1.9 % BASO % 0.6 % GRAN MAT x10^3(ANC) 7.07 1.88 - 7.09 10*3/uL IMM GRAN x10^3 0.04 0.00 - 0.06 10*3/uL LYMPH x10^3 0.49 (L) 1.32 - 3.29 10*3/uL MONO x10^3 1.02 (H) 0.33 - 0.92 10*3/uL EOS x10^3 0.17 0.03 - 0.39 10*3/uL BASO x10^3 0.05 0.01 - 0.07 10*3/uL ACUTE CARE VENOUS BLOOD GAS Collection Time: 07/12/20 3:22 AM Result Value Ref Range PH 7.34 7.32 - 7.42 PCO2 GERMANIA 37 (L) 41 - 51 mmHg PO2 GERMANIA 55 (HH) 25 - 40 mmHg HCO3 GERMANIA 19 (L) 24 - 28 mEq/L AC VBE(BEAKER) -5.9 mEq/L OSMOLALITY URINE Collection Time: 07/12/20 4:44 AM Result Value Ref Range OSMO U 275 50-1,100 mOsm/kg URINALYSIS Collection Time: 07/12/20 4:44 AM Result Value Ref Range APPEARANCE Hazy (A) Clear COLOR Yellow Yellow PH 5.0 4.8 - 8.0 SP GRAVITY 1.015 1.003 - 1.030 GLU U QUAL Normal Normal BLOOD 1+ (A) Negative KETONES Negative Negative PROTEIN 30 mg/dL (A) Negative UROBILIN Normal Normal BILIRUBIN Negative Negative NITRITE Negative Negative LEUK KARSTEN 25/uL (A) Negative RBC/HPF 2 0 - 3 HPF WBC/HPF 20 (H) 0 - 5 HPF BACTERIA Moderate (A) Negative SQ EPITH 1 HPF HYAL CAST 6 (H) <=2 LPF TRANS EPI 1 <=1 HPF GRAN CASTS 20 (H) <=1 LPF CREATININE, URINE RANDOM Collection Time: 07/12/20 4:44 AM Result Value Ref Range CREAT U 70.5 mg/dL SODIUM, URINE RANDOM Collection Time: 07/12/20 4:44 AM Result Value Ref Range NA URINE 23 mmol/L UREA NITROGEN, URINE RANDOM Collection Time: 07/12/20 4:44 AM Result Value Ref Range UREA N UR 338 mg/dL POCT GLUCOSE (AUTOMATED) Collection Time: 07/12/20 7:46 AM Result Value Ref Range POCT GLU 124 (H) 70 - 110 mg/dL POCT GLUCOSE (AUTOMATED) Collection Time: 07/12/20 12:02 PM Result Value Ref Range POCT GLU 171 (H) 70 - 110 mg/dL POCT GLUCOSE (AUTOMATED) Collection Time: 07/12/20 4:55 PM Result Value Ref Range POCT GLU 159 (H) 70 - 110 mg/dL POCT GLUCOSE (AUTOMATED) Collection Time: 07/12/20 7:09 PM Result Value Ref Range POCT GLU 147 (H) 70 - 110 mg/dL Current Facility-Administered Medications Medication Dose Route Frequency Last Rate Last Dose sodium chloride tablet 1 g 1 g Oral QID 1 g at 07/12/201941 cefTRIAXone (ROCEPHIN) 1,000 mg in NaCl 0.9% (NS) 50 mL MINI-BAG 1,000 mg IV Piggyback Q12H ABX 1,000 mg at 07/12/201941 insulin glargine (LANTUS U-100) injection 20 Units 20 Units Subcutaneous QHS 20 Units at 07/12/201938 lactobacillus acidophilus (ACIDOPHILLUS) 25 million cell -100 mg captab 1 tablet 1 tablet Oral BID 1 tablet at 07/12/201941 calcitrioL (ROCALTROL) capsule 0.5 mcg 0.5 mcg Oral DAILY 0.5 mcg at 07/12/20 0900 magnesium hydroxide (MILK OF MAGNESIA) 400 mg/5 mL suspension 30 mL 30 mL Oral TIDPRN Polyethylene Glycol 3350 (MIRALAX) powder 17 g 17 g Oral BID 17 g at 07/12/201941 sennosides (SENOKOT) tablet 8.6 mg 8.6 mg Oral BID 8.6 mg at 07/12/201943 dextrose 50 % in water (D50W) injection 25 mL 25 mL Slow IV Push PRN diphenhydrAMINE (BENADRYL) tablet 25 mg 25 mg Oral Q4HPRN 25 mg at 07/12/201950 enoxaparin (LOVENOX) injection 30 mg 30 mg Subcutaneous DAILY 30 mg at 07/12/20900 glucagon (GLUCAGEN DIAGNOSTIC KIT) injection 1 mg 1 mg Intramuscular PRN Sliding Scale Insulin - Lispro (HumaLOG) + Fsbg Testing Subcutaneous TID MEALS+HS Stopped at1 0800 acetaminophen (TYLENOL) tablet 650 mg 650 mg Oral Q6HPRN 650 mg at 07/11/20 0245 ALPRAZolam (XANAX) tablet 0.25 mg 0.25 mg Oral [id number] 0.25 mg at 07/10/20 2254 amiodarone (PACERONE) tablet 200 mg 200 mg Oral QHS 200 mg at 07/12/201941 atorvastatin (LIPITOR) tablet 40 mg 40 mg Oral QHS 40 mg at 07/12/201941 clopidogreL (PLAVIX) tablet 75 mg 75 mg Oral DAILY 75 mg at 07/12/20 0900 fenofibrate micronized (LOFIBRA) capsule 134 mg 134 mg Oral DAILY 134 mg at 07/12/20 0900 FLUoxetine (PROZAC) capsule 20 mg 20 mg Oral DAILY 20 mg at 07/12/20 0900 hydrALAZINE (APRESOLINE) tablet 25 mg 25 mg Oral Q6HPRN 25 mg at 07/08/20 0001 pantoprazole (PROTONIX) EC tablet 40 mg 40 mg Oral DAILY 40 mg at 07/12/20 0900 primidone (MYSOLINE) tablet 50 mg 50 mg Oral BID 50 mg at 07/12/201941 SITagliptin (JANUVIA) tablet 50 mg 50 mg Oral DAILY 50 mg at 07/12/20 0900 att Carney MD - 07/11/2020 7:58 PM CDT [facility] Hospitalist Progress Note SUBJECTIVE: No acute events overnight. Leg edema and dyspnea improved Worsening renal function Holding diruetics CURRENT MEDICATIONS - reviewed. Current Facility-Administered Medications Medication Dose Route Frequency Last Rate Last Dose [START ON 07/12/2020] cefTRIAXone (ROCEPHIN) 1,000 mg in NaCl 0.9% (NS) 50 mL MINI-BAG 1,000 mgIV Piggyback Q12H ABX [START ON 07/12/2020] insulin glargine (LANTUS U-100) injection 20 Units 20 Units Subcutaneous QHS lactobacillus acidophilus (ACIDOPHILLUS) 25 million cell -100 mg captab 1 tablet 1 tablet Oral BID calcitrioL (ROCALTROL) capsule 0.5 mcg 0.5 mcg Oral DAILY 0.5 mcg at 07/11/20 0908 magnesium hydroxide (MILK OF MAGNESIA) 400 mg/5 mL suspension 30 mL 30 mL Oral TIDPRN Polyethylene Glycol 3350 (MIRALAX) powder 17 g 17 g Oral BID 17 g at 07/11/20 0908 sennosides (SENOKOT) tablet 8.6 mg 8.6 mg Oral BID 8.6 mg at 07/11/20 0909 dextrose 50 % in water (D50W) injection 25 mL 25 mL Slow IV Push PRN diphenhydrAMINE (BENADRYL) tablet 25 mg 25 mg Oral Q4HPRN 25 mg at 07/08/20 0341 enoxaparin (LOVENOX) injection 30 mg 30 mg Subcutaneous DAILY 30 mg at 07/11/20 0908 glucagon (GLUCAGEN DIAGNOSTIC KIT) injection 1 mg 1 mg Intramuscular PRN Sliding Scale Insulin - Lispro (HumaLOG) + Fsbg Testing Subcutaneous TID MEALS+HS Stopped at1 0800 acetaminophen (TYLENOL) tablet 650 mg 650 mg Oral Q6HPRN 650 mg at 07/11/20 0245 ALPRAZolam (XANAX) tablet 0.25 mg 0.25 mg Oral [id number] 0.25 mg at 07/10/20 2254 amiodarone (PACERONE) tablet 200 mg 200 mg Oral QHS 200 mg at 07/10/202047 atorvastatin (LIPITOR) tablet 40 mg 40 mg Oral QHS 40 mg at 07/10/202047 clopidogreL (PLAVIX) tablet 75 mg 75 mg Oral DAILY 75 mg at 07/11/20907 fenofibrate micronized (LOFIBRA) capsule 134 mg 134 mg Oral DAILY 134 mg at 07/11/20 09 FLUoxetine (PROZAC) capsule 20 mg 20 mg Oral DAILY 20 mg at 07/11/20 0913 hydrALAZINE (APRESOLINE) tablet 25 mg 25 mg Oral Q6HPRN 25 mg at 07/08/20 0001 pantoprazole (PROTONIX) EC tablet 40 mg 40 mg Oral DAILY 40 mg at 07/11/2009 primidone (MYSOLINE) tablet 50 mg 50 mg Oral BID 50 mg at 07/11/20908 SITagliptin (JANUVIA) tablet 50 mg 50 mg Oral DAILY 50 mg at 07/11/20 09 PHYSICAL EXAM: BP 132/66 | Pulse 77 | Temp 36.3 C (97.4 F) (Temporal Artery) | Resp 18 | Ht 1.727 m (5' 8") | Wt 76.5 kg (168 lb 9.6 oz) | SpO2 96% | BMI 25.64 kg/m General: No respiratory distress RRR Anicteric sclera Improved leg edema Good air entry b/l Skin: No rash or lesions Neuro: AAOx3, no focal deficits Psych: Normal affect LABS/IMAGING - reviewed, pertinent results as below: CBC BMP PT/INR WBC (10*3/L) Date Value 07/11/2020 8.54 NA (mmol/L) Date Value 07/11/2020 130 (L) No results found for: PT RBC (10*6/L) Date Value 07/11/2020 4.27 K (mmol/L) Date Value 07/11/2020 4.7 INR (no units) Date Value 07/07/2020 1.3 PLT (10*3/L) Date Value 07/11/2020 201 CALCIUM (mg/dL) Date Value 07/11/2020 8.4 (L) HGB (g/dL) Date Value 07/11/2020 11.1 (L) CL (mmol/L) Date Value 07/11/2020 96 (L) aPTT HCT (%) Date Value 07/11/2020 33.8 (L) BUN (mg/dL) Date Value 07/11/2020 35 (H) APTT Patient (Seconds) Date Value 07/07/2020 25 CREATININE (mg/dL) Date Value 07/11/2020 3.22 (H) IMAGING- Hospital Encounter on 07/07/20 CT ANGIOGRAM LOWER EXTREMITY BILATERAL W CONTRAST Narrative PROCEDURE: CT angiogram of the abdomen and pelvis and lower extremities INDICATION: Coronary artery disease, diabetes, hypertension. History of aortic valve replacement and coronary artery bypass surgery. Coronary artery disease post bypass. Bilateral leg swelling and claudication. Thin section CT angiography was performed in the axial plane after the rapid intravenous administration of contrast. No prior studies for comparison. Multiplanar reconstructions were performed as well as 3-D reformats. DOSE: 268 mgy-cm DLP Impression NO SIGNIFICANT ILIOFEMORAL ARTERIAL OCCLUSIVE DISEASE ALTHOUGH DIFFUSE CALCIFICATIONS ARE CONSISTENT WITH LONG-STANDING DIABETES. DIFFUSE LOWER EXTREMITY SOFT TISSUE SWELLING MAY BE CARDIAC OR FLUID OVERLOAD IN ORIGIN. 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 RIGHT POPLITEAL ARTERY POORLY VISUALIZED DUE TO ARTIFACT FROM KNEE PROSTHESIS. HOWEVER, OCCLUSIVE DISEASE IS PRIMARILY BELOW THE KNEE FROM THE RIGHT ANTERIOR TIBIAL AND PERONEAL ARTERIES WITH MULTIPLE STENOSES AFFECTING THE POSTERIOR TIBIAL ARTERY. FINDINGS: PELVIS: The visualized portions of the external iliac arteries show calcifications without focal stenosis. The common and internal iliac arteries are not visualized but the branches of the internal iliac arteries both opacify. The uterus is atrophic and otherwise unremarkable. No pelvic mass or lymphadenopathy. Patient is status post right total hip arthroplasty. No pelvic bony lesions focally. LEFT LOWER EXTREMITY: Common femoral and profunda femoral artery widely patent. Calcified but patent left SFA with some moderate disease in the adductor canal. Popliteal artery mildly diseased with at least 50-60 % calcific stenosis in its midportion at the level of the tibial plateau. There is 3 vessel below the knee left leg runoff with alternating stenoses primarily in the territory of the anterior tibial artery. Anterior and posterior and peroneal arteries flow into the left foot, however. There is diffuse soft tissue edema throughout the left lower extremity. RIGHT LOWER EXTREMITY: As on the left, the right SFA is moderately calcified with mild disease at the adductor canal. Right common femoral and profunda femoral artery widely patent. The right popliteal artery is patent and is poorly visualized in its midportion due to the presence of a right knee prosthesis. However, there are no collaterals to suggest significant stenosis at the popliteal level. Infrapopliteal runoff is primarily from the anterior tibial and peroneal arteries. The right posterior tibial artery shows several occlusions and stenoses but is reconstituted distally at the level of the right ankle. XR CHEST 1 VW Narrative Exam: XR CHEST 1 VW 07/07/2020 5:18 PM Clinical History: pneumonia Comparison: Radiograph of 02/20/2018 Technique: AP view of the chest Findings: The heart is enlarged. A left chest wall pacemaker lead overlies the center of the cardiac shadow. The lungs are clear. Aortic knob calcification. Sternotomy wires are noted. No acute osseous abnormality. Subdiaphragmatic vascular calcification. Gas containing substernal abdominal wall hernia is noted. Impression Impression: Cardiomegaly. No lung consolidation. ASSESSMENT/PLAN Nasir Das is a 79 year old female with PMH as listed above, admitted to the hospital with: Acute on chronic systolic and diastolic CHF Received IV lasix then held for PIOTR. Strict I/Os. Echo done, showed EF 20-25%, elevated venous pressures Cardiology on board Not on beta alvina or ACEI/ARB or aldactone due to low bp and PIOTR E Coli Urinary tract infection F/u urine cx IV ceftriaxone day 5, d/c on discharge NSTEMI type 2 Likely due to infection and volume overload Cardiology consulted PIOTR on CKD 3 Hold lasix Nephrology consult Dr. Shaw Likely ATN Hx CAD s/p CABG and AVR, chronic a-fib On aspirin, plavix, amiodarone Defer AC to cardiology; per cardiology not on AC due to bleeding risk S/p ICD IDDM, A1c 11.2 Takes toujeo 40u qd, januvia On lantus 20u here; hold for tonight due to PIOTR Carb restriction Prophylaxis: DVT- enoxaparin Stress Ulcer: no indication for prophylaxis Code Status: Full, advance care planning discussed on 07/11/2020 Disposition: Home when medically cleared by nephrology, cardiology and renal function improves Pedro Patterson MD ONTCmelva, MD Amanda - 07/11/2020 4:19 PM CDT [facility] Cardiology progress note Date of Service: 07/11/2020 Nasir Das is an 79 year old female hospitalized for HFrEF exacerbation and UTI. Feeling better. Less edema. Rising BUN and Cr. PHYSICAL EXAM Vitals: 07/11/20 0336 07/11/20 0727 07/11/20 1059 07/11/20 1145 BP: 120/66 127/63 136/76 127/69 Pulse: 62 71 69 99 Resp: 18 18 18 18 Temp: 36 C (96.8 F) 36.6 C (97.8 F) 37.1 C (98.7 F) 37.1 C (98.7 F) TempSrc: Temporal Artery SpO2: 94% 93% 96% 95% Weight: 76.5 kg (168 lb 9.6 oz) Height: Date 07/11/20 0700 - 07/12/20 0659 Shift [id number] [id number] [id number] 24 Hour Total INTAKE Oral 243 243 Shift Total 243 243 OUTPUT Shift Total Weight (kg) 76.5 76.5 76.5 76.5 General: alert and oriented x 3 (person, place and date/time); no apparent distress HEENT: normocephalic atraumatic Neck: supple, no lymphadenopathy, no bruits, no JVD Lungs: clear to auscultation bilaterally Cardio: S1, S2, normal rate, irregular; no murmurs, rubs or gallops Abdomen: non-distended : not examined Rectal: not examined Extremities: no clubbing, cyanosis, + trace leg edema Skin: no rashes Neuro: no focal deficits Medications: I have reviewed the patient's medications; see Medication Reconciliation. Labs: I have reviewed the patient's labs. 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 Leg edema improved. Dur to continued rise in BUN and Cr, will hold IV lasix and PO spironolactone. Low salt diet, I/O, daily weight. She has not been on beta alvina or ACEI/ARB probably due to low BP. ECHO showed LVEF 20-25% with elev ated venous pressure. Chronic Afib with controlled rate--Will continue amiodarone 200 mg daily. Not on anticoagulation probably due to bleeding risk. PIOTR--per nephrology. Holding diuresis. Troponin elevation--suspect type 2 [place] due to UTI, HF exacerbation etc. ECHO showed stable findings compared to last ECHO in [facility]. CAD--s/p CABG. Continue plavix and lipitor. S/p AVR--ECHO showed stable parameters. S/p ICD--seems epicardial lead. HTN--well controlled. Hold spironolactone due to PIOTR.. HLD--continue lipitor. UTI--per primary team. Amanda Quick MD, [facility], [employer] Educational Therapy Teacher, Division of Cardiology [facility] Jayden Price DO - 07/11/2020 8:00 AM CDT Nephrology Progress Note Admit Date: 07/07/2020 CPS stable without CP or SOB. No acute events overnight. Good urine output. +Appetite Temp: [36 C (96.8 F)-37.1 C (98.7 F)] Pulse: [62-99] Resp: [18] BP: (120-156)/(63-97) MAP (mmHg): [83-110] Vitals and medications reviewed in the chart. Blood work and imaging reviewed in the chart. PE: Gen: NAD HEENT: NCAT. MMM. Neck: Supple. No LAD. Lungs: CTA CVS: RRR Abd: Soft. NT. +BS Ext: No C/C. LE Edema none Skin: No rash Psych: AAO Neuro: Normal speech ASSESSMENT/PLAN Nasir Das is a 79 year old female with PMH as listed above, admitted to the hospital with: The primary encounter diagnosis was Hyperglycemia. Diagnoses of Lactic acidosis, New onset a-fib, Acute congestive heart failure, unspecified heart failure type, Lymphedema, Elevated troponin, Congestive heart failure, unspecified HF chronicity, unspecified heart failure type, and Claudication of bothlower extremities were also pertinent to this visit. A/ PIOTR in the setting of diuresis. Possible ATN due to hypotension/ IV contrast. Hyponatremia Hypocalcemia CKD III with proteinuria HTN with CKD/ CHF complicated by episodes of hypotension Systolic CHF, A/C DM II with CKD A1C 11.2 Anemia in chronic illness. Iron Deficiency 10%. Acute E.coli cystitis P/ Continue current POC and Medications other than changes listed below. Please see chart and orders for complete details. Agree with holding diuretic at this time. Give a dose of IV iron today. Continue abx. No NSAIDs. AM labs. Daily weight. 07/11/20 0336 Weight: 76.5 kg (168 lb 9.6 oz) Height: Vitals: 07/11/20 1059 07/11/20 1145 07/11/20 1641 07/11/20 1917 BP: 136/76 127/69 (!) 156/77 132/66 Pulse: 69 99 77 77 Resp: 18 18 18 18 Temp: 37.1 C (98.7 F) 37.1 C (98.7 F) 37.1 C (98.7 F) 36.3 C (97.4 F) TempSrc: Temporal Artery SpO2: 96% 95% 96% 96% Weight: Height: Intake/Output Summary (Last 24 hours) at 07/11/2020 2149 Last data filed at 07/11/2020 1854 Gross per 24 hour Intake 643 ml Output 270 ml Net 373 ml Hospital Encounter on 07/07/20 CT ANGIOGRAM LOWER EXTREMITY BILATERAL W CONTRAST Narrative PROCEDURE: CT angiogram of the abdomen and pelvis and lower extremities INDICATION: Coronary artery disease, diabetes, hypertension. History of aortic valve replacement and coronary artery bypass surgery. Coronary artery disease post bypass. Bilateral leg swelling and claudication. Thin section CT angiography was performed in the axial plane after the rapid intravenous administration of contrast. No prior studies for comparison. Multiplanar reconstructions were performed as well as 3-D reformats. DOSE: 268 mgy-cm DLP Impression NO SIGNIFICANT ILIOFEMORAL ARTERIAL OCCLUSIVE DISEASE ALTHOUGH DIFFUSE CALCIFICATIONS ARE CONSISTENT WITH LONG-STANDING DIABETES. DIFFUSE LOWER EXTREMITY SOFT TISSUE SWELLING MAY BE CARDIAC OR FLUID OVERLOAD IN ORIGIN. 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 RIGHT POPLITEAL ARTERY POORLY VISUALIZED DUE TO ARTIFACT FROM KNEE PROSTHESIS. HOWEVER, OCCLUSIVE DISEASE IS PRIMARILY BELOW THE KNEE FROM THE RIGHT ANTERIOR TIBIAL AND PERONEAL ARTERIES WITH MULTIPLE STENOSES AFFECTING THE POSTERIOR TIBIAL ARTERY. FINDINGS: PELVIS: The visualized portions of the external iliac arteries show calcifications without focal stenosis. The common and internal iliac arteries are not visualized but the branches of the internal iliac arteries both opacify. The uterus is atrophic and otherwise unremarkable. No pelvic mass or lymphadenopathy. Patient is status post right total hip arthroplasty. No pelvic bony lesions focally. LEFT LOWER EXTREMITY: Common femoral and profunda femoral artery widely patent. Calcified but patent left SFA with some moderate disease in the adductor canal. Popliteal artery mildly diseased with at least 50-60 % calcific stenosis in its midportion at the level of the tibial plateau. There is 3 vessel below the knee left leg runoff with alternating stenoses primarily in the territory of the anterior tibial artery. Anterior and posterior and peroneal arteries flow into the left foot, however. There is diffuse soft tissue edema throughout the left lower extremity. RIGHT LOWER EXTREMITY: As on the left, the right SFA is moderately calcified with mild disease at the adductor canal. Right common femoral and profunda femoral artery widely patent. The right popliteal artery is patent and is poorly visualized in its midportion due to the presence of a right knee prosthesis. However, there are no collaterals to suggest significant stenosis at the popliteal level. Infrapopliteal runoff is primarily from the anterior tibial and peroneal arteries. The right posterior tibial artery shows several occlusions and stenoses but is reconstituted distally at the level of the right ankle. XR CHEST 1 VW Narrative Exam: XR CHEST 1 VW 07/07/2020 5:18 PM Clinical History: pneumonia Comparison: Radiograph of 02/20/2018 Technique: AP view of the chest Findings: The heart is enlarged. A left chest wall pacemaker lead overlies the center of the cardiac shadow. The lungs are clear. Aortic knob calcification. Sternotomy wires are noted. No acute osseous abnormality. Subdiaphragmatic vascular calcification. Gas containing substernal abdominal wall hernia is noted. Impression Impression: Cardiomegaly. No lung consolidation. Recent Results (from the past 48 hour(s)) CBC WITH DIFF Collection Time: 07/10/20 5:02 AM Result Value Ref Range WBC 6.80 4.30 - 11.10 10*3/L RBC 4.25 3.93 - 5.25 10*6/L HGB 10.9 (L) 11.6 - 15.0 g/dL HCT 33.5 (L) 35.7 - 45.2 % MCV 78.8 (L) 80.6 - 95.5 fL MCH 25.6 (L) 25.9 - 32.8 pg MCHC 32.5 31.6 - 35.1 g/dL RDW-SD 50.2 (H) 39.0 - 49.9 fL RDW-CV 17.7 (H) 12.0 - 15.5 % PLT 208 166 - 358 10*3/L MPV 11.1 9.5 - 12.9 fL NRBC/100 WBC 0.0 0.0 - 10.0 /100 WBCs NRBC x10^3 <0.01 10*3/L GRAN MAT (NEUT) % 71.5 % IMM GRAN % 0.40 % LYMPH % 11.3 % MONO % 13.4 % EOS % 2.5 % BASO % 0.9 % GRAN MAT x10^3(ANC) 4.86 1.88 - 7.09 10*3/uL IMM GRAN x10^3 0.03 0.00 - 0.06 10*3/uL LYMPH x10^3 0.77 (L) 1.32 - 3.29 10*3/uL MONO x10^3 0.91 0.33 - 0.92 10*3/uL EOS x10^3 0.17 0.03 - 0.39 10*3/uL BASO x10^3 0.06 0.01 - 0.07 10*3/uL BASIC METABOLIC PANEL (NA, K, CL, CO2, GLUCOSE, BUN, CREATININE, CA) Collection Time: 07/10/20 5:02 AM Result Value Ref Range NA 132 (L) 135 - 145 mmol/L K 4.5 3.5 - 5.0 mmol/L CL 98 98 - 108 mmol/L CO2 TOTAL 23 23 - 31 mmol/L AGAP 11 2 - 16 BUN 30 (H) 7 - 23 mg/dL GLUCOSE 119 (H) 70 - 110 mg/dL CREATININE 2.15 (H) 0.50 - 1.04 mg/dL CALCIUM 8.3 (L) 8.6 - 10.6 mg/dL eGFR Calculation (Non-) 22.0 mL/min/1.73m2 eGFR Calculation () 26.7 mL/min/1.73m2 N-TERMINAL PRO-BNP Collection Time: 07/10/20 5:02 AM Result Value Ref Range NT-proBNP 19,400 (H) <=450 pg/mL POCT GLUCOSE (AUTOMATED) Collection Time: 07/10/20 7:54 AM Result Value Ref Range POCT GLU 95 70 - 110 mg/dL POCT GLUCOSE (AUTOMATED) Collection Time: 07/10/20 11:40 AM Result Value Ref Range POCT GLU 132 (H) 70 - 110 mg/dL POCT GLUCOSE (AUTOMATED) Collection Time: 07/10/20 4:35 PM Result Value Ref Range POCT GLU 131 (H) 70 - 110 mg/dL POCT GLUCOSE (AUTOMATED) Collection Time: 07/10/20 7:54 PM Result Value Ref Range POCT GLU 131 (H) 70 - 110 mg/dL COMP. METABOLIC PANEL (79859) Collection Time: 07/11/20 3:07 AM Result Value Ref Range NA 130 (L) 135 - 145 mmol/L K 4.7 3.5 - 5.0 mmol/L CL 96 (L) 98 - 108 mmol/L CO2 TOTAL 21 (L) 23 - 31 mmol/L AGAP 13 2 - 16 BUN 35 (H) 7 - 23 mg/dL GLUCOSE 114 (H) 70 - 110 mg/dL CREATININE 3.22 (H) 0.50 - 1.04 mg/dL TOTAL BILI 0.7 0.1 - 1.1 mg/dL CALCIUM 8.4 (L) 8.6 - 10.6 mg/dL T PROTEIN 5.5 (L) 6.3 - 8.2 g/dL ALBUMIN 2.8 (L) 3.5 - 5.0 g/dL ALK PHOS 93 34 - 122 U/L ALTv 11 5 - 35 U/L AST(SGOT) 27 13 - 40 U/L eGFR Calculation (Non-) 13.8 mL/min/1.73m2 eGFR Calculation () 16.7 mL/min/1.73m2 URINALYSIS Collection Time: 07/11/20 3:07 AM Result Value Ref Range APPEARANCE Hazy (A) Clear COLOR Yellow Yellow PH 5.0 4.8 - 8.0 SP GRAVITY 1.018 1.003 - 1.030 GLU U QUAL Normal Normal BLOOD 1+ (A) Negative KETONES Negative Negative PROTEIN 30 mg/dL (A) Negative UROBILIN Normal Normal BILIRUBIN Negative Negative NITRITE Negative Negative LEUK KARSTEN 25/uL (A) Negative RBC/HPF 3 0 - 3 HPF WBC/HPF 22 (H) 0 - 5 HPF BACTERIA Many (A) Negative WBC CLUMPS <1 <=1 HPF GRAN CASTS 35 (H) <=1 LPF CREATININE, URINE RANDOM Collection Time: 07/11/20 3:07 AM Result Value Ref Range CREAT U 74.3 mg/dL SODIUM, URINE RANDOM Collection Time: 07/11/20 3:07 AM Result Value Ref Range NA URINE 34 mmol/L MICROALBUMIN URINE Collection Time: 07/11/20 3:07 AM Result Value Ref Range CREAT U 74.1 mg/dL MICROALB U 182 (H) 0 - 45 ug/mL MICROAL/CR 246 (H) 0 - 30 mg/g of creatinine OSMOLALITY SERUM Collection Time: 07/11/20 3:07 AM Result Value Ref Range OSMOLALITY 286 278 - 305 mOsm/kg OSMOLALITY URINE Collection Time: 07/11/20 3:07 AM Result Value Ref Range OSMO U 304 50-1,100 mOsm/kg CBC WITH DIFF Collection Time: 07/11/20 3:07 AM Result Value Ref Range WBC 8.54 4.30 - 11.10 10*3/L RBC 4.27 3.93 - 5.25 10*6/L HGB 11.1 (L) 11.6 - 15.0 g/dL HCT 33.8 (L) 35.7 - 45.2 % MCV 79.2 (L) 80.6 - 95.5 fL MCH 26.0 25.9 - 32.8 pg MCHC 32.8 31.6 - 35.1 g/dL RDW-SD 50.4 (H) 39.0 - 49.9 fL RDW-CV 17.5 (H) 12.0 - 15.5 % PLT 201 166 - 358 10*3/L MPV 11.9 9.5 - 12.9 fL NRBC/100 WBC 0.0 0.0 - 10.0 /100 WBCs NRBC x10^3 <0.01 10*3/L GRAN MAT (NEUT) % 77.5 % IMM GRAN % 0.20 % LYMPH % 8.2 % MONO % 10.8 % EOS % 2.5 % BASO % 0.8 % GRAN MAT x10^3(ANC) 6.62 1.88 - 7.09 10*3/uL IMM GRAN x10^3 <0.03 0.00 - 0.06 10*3/uL LYMPH x10^3 0.70 (L) 1.32 - 3.29 10*3/uL MONO x10^3 0.92 0.33 - 0.92 10*3/uL EOS x10^3 0.21 0.03 - 0.39 10*3/uL BASO x10^3 0.07 0.01 - 0.07 10*3/uL N-TERMINAL PRO-BNP Collection Time: 07/11/20 3:07 AM Result Value Ref Range NT-proBNP 19,300 (H) <=450 pg/mL URIC ACID Collection Time: 07/11/20 3:07 AM Result Value Ref Range URIC ACID 10.1 (H) 2.9 - 6.0 mg/dL CREATINE KINASE Collection Time: 07/11/20 3:07 AM Result Value Ref Range CK 40 33 - 194 U/L UREA NITROGEN, URINE RANDOM Collection Time: 07/11/20 3:08 AM Result Value Ref Range UREA N UR 310 mg/dL POCT GLUCOSE (AUTOMATED) Collection Time: 07/11/20 8:00 AM Result Value Ref Range POCT GLU 101 70 - 110 mg/dL POCT GLUCOSE (AUTOMATED) Collection Time: 07/11/20 12:04 PM Result Value Ref Range POCT GLU 159 (H) 70 - 110 mg/dL POCT GLUCOSE (AUTOMATED) Collection Time: 07/11/20 4:44 PM Result Value Ref Range POCT GLU 160 (H) 70 - 110 mg/dL POCT GLUCOSE (AUTOMATED) Collection Time: 07/11/20 7:54 PM Result Value Ref Range POCT GLU 159 (H) 70 - 110 mg/dL Current Facility-Administered Medications Medication Dose Route Frequency Last Rate Last Dose [START ON 07/12/2020] cefTRIAXone (ROCEPHIN) 1,000 mg in NaCl 0.9% (NS) 50 mL MINI-BAG 1,000 mgIV Piggyback Q12H ABX [START ON 07/12/2020] insulin glargine (LANTUS U-100) injection 20 Units 20 Units Subcutaneous QHS lactobacillus acidophilus (ACIDOPHILLUS) 25 million cell -100 mg captab 1 tablet 1 tablet Oral BID 1 tablet at 07/11/202101 calcitrioL (ROCALTROL) capsule 0.5 mcg 0.5 mcg Oral DAILY 0.5 mcg at 07/11/20907 magnesium hydroxide (MILK OF MAGNESIA) 400 mg/5 mL suspension 30 mL 30 mL Oral TIDPRN Polyethylene Glycol 3350 (MIRALAX) powder 17 g 17 g Oral BID 17 g at 07/11/202101 sennosides (SENOKOT) tablet 8.6 mg 8.6 mg Oral BID 8.6 mg at 07/11/202101 dextrose 50 % in water (D50W) injection 25 mL 25 mL Slow IV Push PRN diphenhydrAMINE (BENADRYL) tablet 25 mg 25 mg Oral Q4HPRN 25 mg at 07/08/20 034 enoxaparin (LOVENOX) injection 30 mg 30 mg Subcutaneous DAILY 30 mg at 07/11/20907 glucagon (GLUCAGEN DIAGNOSTIC KIT) injection 1 mg 1 mg Intramuscular PRN Sliding Scale Insulin - Lispro (HumaLOG) + Fsbg Testing Subcutaneous TID MEALS+HS Stopped at1 0800 acetaminophen (TYLENOL) tablet 650 mg 650 mg Oral Q6HPRN 650 mg at 07/11/20 0245 ALPRAZolam (XANAX) tablet 0.25 mg 0.25 mg Oral [id number] 0.25 mg at 07/10/20 225 amiodarone (PACERONE) tablet 200 mg 200 mg Oral QHS 200 mg at 07/11/202101 atorvastatin (LIPITOR) tablet 40 mg 40 mg Oral QHS 40 mg at 07/11/202101 clopidogreL (PLAVIX) tablet 75 mg 75 mg Oral DAILY 75 mg at 07/11/20 09 fenofibrate micronized (LOFIBRA) capsule 134 mg 134 mg Oral DAILY 134 mg at 07/11/20 09 FLUoxetine (PROZAC) capsule 20 mg 20 mg Oral DAILY 20 mg at 07/11/20 09 hydrALAZINE (APRESOLINE) tablet 25 mg 25 mg Oral Q6HPRN 25 mg at 07/08/20 0001 pantoprazole (PROTONIX) EC tablet 40 mg 40 mg Oral DAILY 40 mg at 07/11/20 0909 primidone (MYSOLINE) tablet 50 mg 50 mg Oral BID 50 mg at 07/11/202101 SITagliptin (JANUVIA) tablet 50 mg 50 mg Oral DAILY 50 mg at 07/11/20 0909 Pedro Patterson MD - 07/10/2020 7:12 PM CDT [facility] Hospitalist Progress Note SUBJECTIVE: No acute events overnight. CURRENT MEDICATIONS - reviewed. Current Facility-Administered Medications Medication Dose Route Frequency Last Rate Last Dose calcitrioL (ROCALTROL) capsule 0.5 mcg 0.5 mcg Oral DAILY 0.5 mcg at 07/10/20 1335 magnesium hydroxide (MILK OF MAGNESIA) 400 mg/5 mL suspension 30 mL 30 mL Oral TIDPRN Polyethylene Glycol 3350 (MIRALAX) powder 17 g 17 g Oral BID 17 g at 07/09/20 2113 sennosides (SENOKOT) tablet 8.6 mg 8.6 mg Oral BID 8.6 mg at 07/10/20 0911 dextrose 50 % in water (D50W) injection 25 mL 25 mL Slow IV Push PRN diphenhydrAMINE (BENADRYL) tablet 25 mg 25 mg Oral Q4HPRN 25 mg at 07/08/20 0341 enoxaparin (LOVENOX) injection 30 mg 30 mg Subcutaneous DAILY 30 mg at 07/10/20 0914 glucagon (GLUCAGEN DIAGNOSTIC KIT) injection 1 mg 1 mg Intramuscular PRN insulin glargine (LANTUS U-100) injection 20 Units 20 Units Subcutaneous QHS 20 Units at 07/09/202109 Sliding Scale Insulin - Lispro (HumaLOG) + Fsbg Testing Subcutaneous TID MEALS+HS Stopped at1 0800 acetaminophen (TYLENOL) tablet 650 mg 650 mg Oral Q6HPRN ALPRAZolam (XANAX) tablet 0.25 mg 0.25 mg Oral [id number] 0.25 mg at 10/18/20 2134 amiodarone (PACERONE) tablet 200 mg 200 mg Oral QHS 200 mg at 07/09/202112 atorvastatin (LIPITOR) tablet 40 mg 40 mg Oral QHS 40 mg at 07/09/202112 cefTRIAXone (ROCEPHIN) 1,000 mg in NaCl 0.9% (NS) 50 mL MINI-BAG 1,000 mg IV Piggyback Q24H ABX 1,000 mg at 07/10/20 185 clopidogreL (PLAVIX) tablet 75 mg 75 mg Oral DAILY 75 mg at 07/10/20 09 fenofibrate micronized (LOFIBRA) capsule 134 mg 134 mg Oral DAILY 134 mg at 07/10/20 0911 FLUoxetine (PROZAC) capsule 20 mg 20 mg Oral DAILY 20 mg at 07/10/20 09 hydrALAZINE (APRESOLINE) tablet 25 mg 25 mg Oral Q6HPRN 25 mg at 07/08/20 0001 pantoprazole (PROTONIX) EC tablet 40 mg 40 mg Oral DAILY 40 mg at 07/10/20911 primidone (MYSOLINE) tablet 50 mg 50 mg Oral BID 50 mg at 07/10/20 0911 SITagliptin (JANUVIA) tablet 50 mg 50 mg Oral DAILY 50 mg at 07/10/20 0911 PHYSICAL EXAM: BP 139/80 | Pulse 68 | Temp 36.2 C (97.2 F) (Tympanic) | Resp 20 | Ht 5' 8" (1.727 m) | Wt 169 lb 11.2 oz (77 kg) | SpO2 96% | BMI 25.80 kg/m General: No respiratory distress Musculoskeletal: Normal muscle mass, no synovitis Skin: No rash or lesions Neuro: AAOx3, no focal deficits Psych: Normal affect LABS/IMAGING - reviewed, pertinent results as below: CBC BMP PT/INR WBC (10*3/L) Date Value 07/10/2020 6.80 NA (mmol/L) Date Value 07/10/2020 132 (L) No results found for: PT RBC (10*6/L) Date Value 07/10/2020 4.25 K (mmol/L) Date Value 07/10/2020 4.5 INR (no units) Date Value 07/07/2020 1.3 PLT (10*3/L) Date Value 07/10/2020 208 CALCIUM (mg/dL) Date Value 07/10/2020 8.3 (L) HGB (g/dL) Date Value 07/10/2020 10.9 (L) CL (mmol/L) Date Value 07/10/2020 98 aPTT HCT (%) Date Value 07/10/2020 33.5 (L) BUN (mg/dL) Date Value 07/10/2020 30 (H) APTT Patient (Seconds) Date Value 07/07/2020 25 CREATININE (mg/dL) Date Value 07/10/2020 2.15 (H) IMAGING- Hospital Encounter on 07/07/20 XR CHEST 1 VW Narrative Exam: XR CHEST 1 VW 07/07/2020 5:18 PM Clinical History: pneumonia Comparison: Radiograph of 02/20/2018 Technique: AP view of the chest Findings: The heart is enlarged. A left chest wall pacemaker lead overlies the center of the cardiac shadow. The lungs are clear. Aortic knob calcification. Sternotomy wires are noted. No acute osseous abnormality. Subdiaphragmatic vascular calcification. Gas containing substernal abdominal wall hernia is noted. Impression Impression: Cardiomegaly. No lung consolidation. ASSESSMENT/PLAN Nasir Das is a 79 year old female with PMH as listed above, admitted to the hospital with: Acute on chronic CHF, unclear etiology Received IV lasix then held for PIOTR. Strict I/Os. Echo ordered Cardiology on board Urinary tract infection F/u urine cx IV ceftriaxone day 4 NSTEMI type 2 Likely due to infection and volume overload Cardiology consulted PIOTR on CKD 3 Hold lasix Nephrology consult Hx CAD s/p CABG and AVR, paroxysmal a-fib On aspirin, plavix, amiodarone Defer AC to cardiology IDDM, A1c 11.2 Takes toujeo 40u qd, januvia On lantus 20u here Carb restriction Prophylaxis: DVT- enoxaparin Stress Ulcer: no indication for prophylaxis Code Status: Full Disposition: Home when medically cleared Pedro Patterson MD Bonnie lynch [facility] - 07/10/2020 3:00 PM CDTSubjective Patient ID: Nasir Das is a 79 year old female. Care Management Social Functional Assessment Patient Name: Nasir Das Age: [age] year old Sex: female Previous admit date: N/A Current diagnosis and co-morbidities: CHF Readmission Questions: Was patient discharged from any acute care hospital within the last 30 days: No Social Functional Assessment: Primary language spoken/preferred: [place] Mental Status: Alert & Oriented to Person,Place & Time Information given by: Self Patient's support system: Child Name and number of support system: link [employer] [phone] Primary Retail Training Manager: Self MPOA: No Living Arrangement: Home Address of living arrangement : [address] [place] [id number] Persons living in home: Self Barriers to returning home: None Baseline functional status- ambulation: Independent Functional status-baseline personal care: Independent Baseline functional status- driving: Dependent Baseline functional status- grocery shopping: Requires minimal to moderate assistance Functional status-baseline housekeeping: Requires minimal to moderate assistance Functional status-baseline meal prep: Independent Current functional status same as prior: Yes Do you have a PCP?: Yes Name of PCP: [facility] Agency: Yes Name of Home Health Agency: [address] [place] [address] () [phone] (F) [phone] Previous or current Home Health Care Agency: Current Provider Services: No DME Company: No Equipment: Cane Hemodialysis: No Community resources utilized: None Funding Resources: Medicare Replacement Medicare Replacement name and information: [employer] Prescription coverage plan: Medicare Part D Pharmacy where meds are filled: Other Other pharmacy[facility] Anticipated services prior to disharge: Continue Medical Eval Expected mode of discharge transportation: Same as support system Additional Recommendations for DC: Medical clearance, home and will resume services with [facility] [place] [facility] [place] Additional info required for discharge planning: Pending medical evaluation Recommended discharge plan: Home;Update/Resume orders SFA Complete: Social Functional Assessment complete: Yes Alcohol Use Screening (AUDIT-C) How often do you have a drink containing alcohol?: Never SCORE: 0 Did patient elect to have resources provided: No Role of Care Management explained. Any issues or concerns with obtaining/affording your medications at home: no. Are you or your support system able to strip picker medications at discharge: yes. Review of Systems Objective Physical Exam Assessment/Plan Home , resume services with [facility] and private provider HUE Aranda Technical Applications Scientist - Care Management [facility] [phone] [email or web address] ONTCai, MD Amanda - 07/10/2020 1:21 PM CDT [facility] Cardiology progress note Date of Service: 07/10/2020 Nasir Das is an 79 year old female hospitalized for HFrEF exacerbation and UTI. Feeling better. Less edema. Rising BUN and Cr. PHYSICAL EXAM Vitals: 07/09/20 2331 07/10/20 0338 07/10/20 0754 07/10/20 1140 BP: 130/73 129/77 127/76 122/71 Pulse: 71 73 67 73 Resp: 18 18 18 18 Temp: 36.1 C (97 F) 36.1 C (96.9 F) 36.8 C (98.2 F) 36.4 C (97.5 F) TempSrc: Temporal Artery Temporal Artery Tympanic Tympanic SpO2: 92% 94% 93% 96% Weight: 77 kg (169 lb 11.2 oz) Height: Date 07/10/20 0700 - 07/11/20 0659 Shift [id number] [id number] 6495-7297 24 Hour Total INTAKE Oral 355 355 Shift Total 355 355 OUTPUT Shift Total Weight (kg) 77 77 77 77 General: alert and oriented x 3 (person, place and date/time); no apparent distress HEENT: normocephalic atraumatic Neck: supple, no lymphadenopathy, no bruits, no JVD Lungs: clear to auscultation bilaterally Cardio: S1, S2, normal rate, irregular; no murmurs, rubs or gallops Abdomen: non-distended : not examined Rectal: not examined Extremities: no clubbing, cyanosis, + mild leg edema Skin: no rashes Neuro: no focal deficits Medications: I have reviewed the patient's medications; see Medication Reconciliation. Labs: I have reviewed the patient's labs. 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 Leg edema and BNP improved. Dur to continued rise in BUN and Cr, will hold IV lasix and PO spironolactone. Low salt diet, I/O, daily weight. She has not been on beta alvina or ACEI/ARB probably due to low BP. ECHO showed LVEF 20-25% with elevated venous pressure. Chronic Afib with controlled rate--Will continue amiodarone 200 mg daily. Not on anticoagulation probably due to bleeding risk. Troponin elevation--suspect type 2 [place] due to UTI, HF exacerbation etc. ECHO showed stable findings compared to last ECHO in [facility]. CAD--s/p CABG. Continue plavix and lipitor. S/p AVR--ECHO showed stable parameters. S/p ICD--seems epicardial lead. HTN--well controlled. Hold spironolactone due to PIOTR.. HLD--continue lipitor. UTI--per primary team. Amanda Quick MD, FAC, EULOGIO Educational Therapy Teacher, Division of Cardiology [facility] Ayanna Lopez LMSW - 07/10/2020 12:57 PM CDTSummiyay: Inpatient Scheduling WELT SEWER spoke with patient prior to discharge to assist with scheduling hospital follow up appointments. Pt was agreeable to assistance. [facility] [place]. Efra Avila's clinic directly for scheduling. Was able to schedule patient witha hospital follow up with Dr. Avila on 07/24/2020 at 1:15pm. Pt reports that her normal Plugging Machine Operator is Dr. Delgado, but she hasn't seen him in a while. Pt reportsthat she would rather follow up with Dr. Quick. [facility] was able to schedule patient with a hospital follow up with Dr. Quick on 07/17/2020 at 1:20pm AVS updated. Will document in referrals once they are made available Ayanna Shi LMSW Technical Applications Scientist - Community Wellness and Outreach [facility] - 7th floor Office: [phone] (Not for patient use) [email or web address] Pedro Patterson MD - 07/09/2020 4:42 PM CDT [facility] Hospitalist Progress Note SUBJECTIVE: No acute events overnight. CURRENT MEDICATIONS - reviewed. Current Facility-Administered Medications Medication Dose Route Frequency Last Rate Last Dose magnesium hydroxide (MILK OF MAGNESIA) 400 mg/5 mL suspension 30 mL 30 mL Oral TIDPRN Polyethylene Glycol 3350 (MIRALAX) powder 17 g 17 g Oral BID 17 g at 07/09/20 1507 sennosides (SENOKOT) tablet 8.6 mg 8.6 mg Oral BID 8.6 mg at 07/09/20 1507 dextrose 50 % in water (D50W) injection 25 mL 25 mL Slow IV Push PRN diphenhydrAMINE (BENADRYL) tablet 25 mg 25 mg Oral Q4HPRN 25 mg at 07/08/20 0341 enoxaparin (LOVENOX) injection 30 mg 30 mg Subcutaneous DAILY 30 mg at 07/09/20 0925 glucagon (GLUCAGEN DIAGNOSTIC KIT) injection 1 mg 1 mg Intramuscular PRN insulin glargine (LANTUS U-100) injection 20 Units 20 Units Subcutaneous QHS 20 Units at 07/08/202036 Sliding Scale Insulin - Lispro (HumaLOG) + Fsbg Testing Subcutaneous TID MEALS+HS Stopped at1 0800 acetaminophen (TYLENOL) tablet 650 mg 650 mg Oral Q6HPRN ALPRAZolam (XANAX) tablet 0.25 mg 0.25 mg Oral A14PQPN amiodarone (PACERONE) tablet 200 mg 200 mg Oral QHS 200 mg at 07/08/202035 atorvastatin (LIPITOR) tablet 40 mg 40 mg Oral QHS 40 mg at 07/08/202035 cefTRIAXone (ROCEPHIN) 1,000 mg in NaCl 0.9% (NS) 50 mL MINI-BAG 1,000 mg IV Piggyback Q24H ABX 1,000 mg at 07/08/20 1834 clopidogreL (PLAVIX) tablet 75 mg 75 mg Oral DAILY 75 mg at 07/09/20925 fenofibrate micronized (LOFIBRA) capsule 134 mg 134 mg Oral DAILY 134 mg at 07/09/20924 FLUoxetine (PROZAC) capsule 20 mg 20 mg Oral DAILY 20 mg at 07/09/20925 furosemide (LASIX) injection 40 mg 40 mg Slow IV Push Q12H 40 mg at 07/09/20924 hydrALAZINE (APRESOLINE) tablet 25 mg 25 mg Oral Q6HPRN 25 mg at 07/08/20 0001 pantoprazole (PROTONIX) EC tablet 40 mg 40 mg Oral DAILY 40 mg at 07/09/20924 primidone (MYSOLINE) tablet 50 mg 50 mg Oral BID 50 mg at 07/09/20924 SITagliptin (JANUVIA) tablet 50 mg 50 mg Oral DAILY 50 mg at 07/09/20925 spironolactone (ALDACTONE) tablet 50 mg 50 mg Oral DAILY 50 mg at 07/09/20925 traMADoL (ULTRAM) tablet 50 mg 50 mg Oral Q8HPRN 50 mg at 07/08/20 0335 PHYSICAL EXAM: BP 120/71 | Pulse 73 | Temp 36.4 C (97.5 F) (Temporal Artery) | Resp 18 | Ht 5' 8" (1.727 m) | Wt 171 lb 14.4 oz (78 kg) | SpO2 94% | BMI 26.14 kg/m General: No respiratory distress Musculoskeletal: Normal muscle mass, no synovitis Skin: No rash or lesions Neuro: AAOx3, no focal deficits Psych: Normal affect LABS/IMAGING - reviewed, pertinent results as below: CBC BMP PT/INR WBC (10*3/L) Date Value 07/08/2020 6.91 NA (mmol/L) Date Value 07/09/2020 133 (L) No results found for: PT RBC (10*6/L) Date Value 07/08/2020 4.68 K (mmol/L) Date Value 07/09/2020 4.5 INR (no units) Date Value 07/07/2020 1.3 PLT (10*3/L) Date Value 07/08/2020 236 CALCIUM (mg/dL) Date Value 07/09/2020 8.2 (L) HGB (g/dL) Date Value 07/08/2020 12.0 CL (mmol/L) Date Value 07/09/2020 100 aPTT HCT (%) Date Value 07/08/2020 37.7 BUN (mg/dL) Date Value 07/09/2020 24 (H) APTT Patient (Seconds) Date Value 07/07/2020 25 CREATININE (mg/dL) Date Value 07/09/2020 1.46 (H) IMAGING- Hospital Encounter on 07/07/20 XR CHEST 1 VW Narrative Exam: XR CHEST 1 VW 07/07/2020 5:18 PM Clinical History: pneumonia Comparison: Radiograph of 02/20/2018 Technique: AP view of the chest Findings: The heart is enlarged. A left chest wall pacemaker lead overlies the center of the cardiac shadow. The lungs are clear. Aortic knob calcification. Sternotomy wires are noted. No acute osseous abnormality. Subdiaphragmatic vascular calcification. Gas containing substernal abdominal wall hernia is noted. Impression Impression: Cardiomegaly. No lung consolidation. ASSESSMENT/PLAN Nasir Das is a 79 year old female with PMH as listed above, admitted to the hospital with: Acute on chronic CHF, unclear etiology IV lasix. Strict I/Os. Echo ordered Cardiology on board Urinary tract infection F/u urine cx IV ceftriaxone day 3 NSTEMI type 2 Likely due to infection and volume overload Cardiology consulted Hx CAD s/p CABG and AVR, paroxysmal a-fib On aspirin, plavix, amiodarone Defer AC to cardiology IDDM Takes toujeo 40u qd, januvia On lantus 20u here Carb restriction Prophylaxis: DVT- enoxaparin Stress Ulcer: no indication for prophylaxis Code Status: Full Disposition: Home when medically cleared Pedro Patterson MD ONTCAmanda frye MD - 07/09/2020 4:11 PM CDT [facility] Cardiology progress note Date of Service: 07/09/2020 Nasir Das is an 79 year old female hospitalized for HFrEF exacerbation and UTI. Feeling better. Less edema. PHYSICAL EXAM Vitals: 07/08/20 2322 07/09/20 0322 07/09/20 0725 07/09/20 1102 BP: 122/70 96/70 110/75 120/71 Pulse: 83 84 95 73 Resp: 18 18 18 18 Temp: 36.4 C (97.6 F) 36.4 C (97.6 F) 36.5 C (97.7 F) 36.4 C (97.5 F) TempSrc: Temporal Artery Temporal Artery Temporal Artery Temporal Artery SpO2: 97% 91% 93% 94% Weight: 78 kg (171 lb 14.4 oz) Height: General: alert and oriented x 3 (person, place and date/time); no apparent distress HEENT: normocephalic atraumatic Neck: supple, no lymphadenopathy, no bruits, no JVD Lungs: clear to auscultation bilaterally Cardio: S1, S2, normal rate, irregular; no murmurs, rubs or gallops Abdomen: non-distended : not examined Rectal: not examined Extremities: no clubbing, cyanosis, + leg edema Skin: no rashes Neuro: no focal deficits Medications: I have reviewed the patient's medications; see Medication Reconciliation. Labs: I have reviewed the patient's labs. 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 Leg edema and BNP improved. Willcontinue IV lasix 40 mg BID as tolerated. Low salt diet, I/O, daily weight. She has not been on betablocker or ACEI/ARB probably due to low BP. Continue spironolactone. Cr rising, watch closely. Chronic Afib with controlled rate--Will continue amiodarone 200 mg daily. Not on anticoagulation probably due to bleeding risk. Troponin elevation--suspect type 2 [place] due to UTI, HF exacerbation etc. Will get ECHO to assess LVEF and wall motion. CAD--s/p CABG. Continue plavix and lipitor. S/p AVR S/p ICD--seems epicardial lead. HTN--well controlled. Continue spironolactone. HLD--continue lipitor. UTI--per primary team. Amanda Quick MD, FACC, EULOGIO Educational Therapy Teacher, Division of Cardiology [facility] Morena bauer LMSW - 07/08/2020 4:32 PM CDTSocial Work Note: 07/08/2020 4:32 PM WELT SEWER attempted to contact the patient via room phone ([phone]) to complete SFA however there was no answer, WELT SEWER to reattempt as time permits. Morena Brand LMSW [facility] Department of Care Management E: [email or web address] P: [phone] F: [phone] Megan Núñez RN - 07/08/2020 1:53 PM CDTILeonardo Yaman, MD, after reviewing this case with the Public Health Nurse, I concur this case is appropriate for inpatient admission. The change to inpatient admission is based on the level of care this patient is receiving, medical necessity, risks associated and the expected duration of stay. The inpatient admission order has been entered. LISSETH Lou, RN Utilization Review Department of Care Management [facility] Office: Email: [email or web address] Associated attestation - Pedro Patterson MD - 07/08/2020 5:22 PM CDTattested Pedro Patterson MD - 07/08/2020 12:34 PM CDT [facility] Hospitalist Progress Note SUBJECTIVE: No acute events overnight. CURRENT MEDICATIONS - reviewed. Current Facility-Administered Medications Medication Dose Route Frequency Last Rate Last Dose dextrose 50 % in water (D50W) injection 25 mL 25 mL Slow IV Push PRN diphenhydrAMINE (BENADRYL) tablet 25 mg 25 mg Oral Q4HPRN 25 mg at 07/08/20 0341 glucagon (GLUCAGEN DIAGNOSTIC KIT) injection 1 mg 1 mg Intramuscular PRN Sliding Scale Insulin - Lispro (HumaLOG) + Fsbg Testing Subcutaneous TID MEALS+HS 2 Units at1 1223 acetaminophen (TYLENOL) tablet 650 mg 650 mg Oral Q6HPRN ALPRAZolam (XANAX) tablet 0.25 mg 0.25 mg Oral [id number] amiodarone (PACERONE) tablet 200 mg 200 mg Oral QHS atorvastatin (LIPITOR) tablet 40 mg 40 mg Oral QHS cefTRIAXone (ROCEPHIN) 1,000 mg in NaCl 0.9% (NS) 50 mL MINI-BAG 1,000 mg IV Piggyback Q24H ABX 1,000 mg at 07/07/202206 clopidogreL (PLAVIX) tablet 75 mg 75 mg Oral DAILY 75 mg at 07/08/20 09 fenofibrate micronized (LOFIBRA) capsule 134 mg 134 mg Oral DAILY 134 mg at 07/08/20 09 FLUoxetine (PROZAC) capsule 20 mg 20 mg Oral DAILY 20 mg at 07/08/20925 furosemide (LASIX) injection 40 mg 40 mg Slow IV Push Q12H 40 mg at 07/08/20 0927 hydrALAZINE (APRESOLINE) tablet 25 mg 25 mg Oral Q6HPRN 25 mg at 07/08/20 0001 pantoprazole (PROTONIX) EC tablet 40 mg 40 mg Oral DAILY 40 mg at 07/08/20 09 primidone (MYSOLINE) tablet 50 mg 50 mg Oral BID 50 mg at 07/08/20 09 SITagliptin (JANUVIA) tablet 50 mg 50 mg Oral DAILY 50 mg at 07/08/20925 spironolactone (ALDACTONE) tablet 50 mg 50 mg Oral DAILY 50 mg at 07/08/20 09 traMADoL (ULTRAM) tablet 50 mg 50 mg Oral Q8HPRN 50 mg at 07/08/20 0335 PHYSICAL EXAM: BP 108/56 | Pulse 67 | Temp 36.1 C (97 F) (Temporal Artery) | Resp 18 | Ht 5' 8" (1.727 m) | Wt 170 lb 12.8 oz (77.5 kg) | SpO2 96% | BMI 25.97 kg/m General: No respiratory distress Musculoskeletal: Normal muscle mass, no synovitis Skin: No rash or lesions Neuro: AAOx3, no focal deficits Psych: Normal affect LABS/IMAGING - reviewed, pertinent results as below: CBC BMP PT/INR WBC (10*3/L) Date Value 07/08/2020 6.91 NA (mmol/L) Date Value 07/08/2020 134 (L) No results found for: PT RBC (10*6/L) Date Value 07/08/2020 4.68 K (mmol/L) Date Value 07/08/2020 4.2 INR (no units) Date Value 07/07/2020 1.3 PLT (10*3/L) Date Value 07/08/2020 236 CALCIUM (mg/dL) Date Value 07/08/2020 9.1 HGB (g/dL) Date Value 07/08/2020 12.0 CL (mmol/L) Date Value 07/08/2020 97 (L) aPTT HCT (%) Date Value 07/08/2020 37.7 BUN (mg/dL) Date Value 07/08/2020 23 APTT Patient (Seconds) Date Value 07/07/2020 25 CREATININE (mg/dL) Date Value 07/08/2020 1.04 IMAGING- Hospital Encounter on 07/07/20 XR CHEST 1 VW Narrative Exam: XR CHEST 1 VW 07/07/2020 5:18 PM Clinical History: pneumonia Comparison: Radiograph of 02/20/2018 Technique: AP view of the chest Findings: The heart is enlarged. A left chest wall pacemaker lead overlies the center of the cardiac shadow. The lungs are clear. Aortic knob calcification. Sternotomy wires are noted. No acute osseous abnormality. Subdiaphragmatic vascular calcification. Gas containing substernal abdominal wall hernia is noted. Impression Impression: Cardiomegaly. No lung consolidation. ASSESSMENT/PLAN Nasir Das is a 79 year old female with PMH as listed above, admitted to the hospital with: Acute on chronic CHF, unclear etiology IV lasix. Strict I/Os. Echo ordered Cardiology on board Urinary tract infection F/u urine cx IV ceftriaxone day 2 NSTEMI type 2 Likely due to infection and volume overload Cardiology consulted Hx CAD s/p CABG and AVR, paroxysmal a-fib On aspirin, plavix, amiodarone Defer AC to cardiology IDDM Takes toujeo 40u qd, januvia On lantus 20u here Carb restriction Prophylaxis: DVT- enoxaparin Stress Ulcer: no indication for prophylaxis Code Status: Full Disposition: Home when medically cleared Pedro Patterson MD documented in this encounter H&P Notes Sangeetha Vilchis MD - 07/07/2020 10:16 PM CDT MEDICINE ADC ADMIT H&P Date of Service: 07/07/2020 CHIEF COMPLAINT: leg swelling, uncontrolled blood sugars. History of Present Illness 79 year-old female with pmh of atrial fibrillation, CAD s/p CABG, DM, HTN, CHF (unknown ejection fraction) who presents to the ED secondary to lower extremity leg swelling and uncontrolled blood sugars. Of note, patient recently underwent right hemiarthroplasty about 1 month ago. Patient notes subsequently after surgery she started having swelling in her lower extremities associated with pain, swelling, and intermittent numbness. She denies any fever or chills. She denies any chest pain, shortness of breath, nausea, or vomiting. Due to the worsening state of her legs, she decided to come to the ED. Plugging Machine Operator: Attar PAST MEDICAL HISTORY Past Medical History: Diagnosis Date CAD (coronary artery disease) DM2 (diabetes mellitus, type 2) HTN (hypertension) Past Surgical History: Procedure Laterality Date AORTIC VALVE REPLACEMENT CABG, ARTERIAL, FOUR+ Family History Problem Relation Age of Onset Diabetes Mother ALLERGIES Allergies Allergen Reactions Codeine Hallucinations Morphine Hallucinations Penicillin Rash MEDICATIONS No current facility-administered medications on file prior to encounter. Current Outpatient Medications on File Prior to Encounter Medication Sig Dispense Refill ALPRAZolam (XANAX) 0.25 [...] DAY 6 spironolactone (ALDACTONE) 50 mg tablet DOMINIQUE ETIENNEAR 300 unit/mL (1.5 mL) InPn INJECT SUB 40 UNITS EVERY DAY 3 SOCIAL HISTORY Social History Socioeconomic History Marital status: Spouse [...] file Gets together: Not on file Attends moravian service: Not on file Active member of [...] file Social History Narrative Not on file Review of Systems Constitutional: Negative. HENT: Negative. Eyes: Negative. Respiratory: Negative. Breasts: Negative. Cardiovascular: Positive for leg swelling. Negative for palpitations. Gastrointestinal: Negative. Genitourinary: Negative. Musculoskeletal: Negative. Skin: Positive for rash. Neurological: Positive for numbness. Negative for dizziness, tremors, seizures, syncope, facial asymmetry, speech difficulty, weakness, light-headedness and headaches. Psychiatric/Behavioral: Negative. Endocrine: Endocrine negative PHYSICAL EXAMINATION Vitals: 07/07/20 1700 07/07/20 1800 07/07/20 1826 07/07/202006 BP: (!) 155/91 (!) 151/96 (!) 148/107 (!) 156/101 Pulse: 89 88 90 97 Resp: 17 18 18 18 Temp: 36.1 C (96.9 F) 36.4 C (97.6 F) 36.4 C (97.6 F) TempSrc: Oral Temporal Artery Temporal Artery SpO2: 99% 100% 95% 96% Weight: Height: Physical Exam Constitutional: She is oriented to person, place, and time. She appears well- developed and well-nourished. No distress. HENT: Head: Normocephalic and atraumatic. Right Ear: External ear normal. Left Ear: External ear normal. Eyes: Pupils are equal, round, and reactive to light. Conjunctivae and EOM are normal. Right eye exhibits no discharge. Left eye exhibits no discharge. No scleral icterus. Neck: Normal range of motion. Cardiovascular: Irregular rhythm, irregular rate Pulmonary/Chest: Effort normal. No respiratory distress. She exhibits no tenderness. Abdominal: She exhibits no distension. Musculoskeletal: Normal range of motion. General: Edema (1+ pitting edema in the lower extremitites bilaterallly) present. Neurological: She is alert and oriented to person, place, and time. Skin: Skin is warm. She is not diaphoretic. There is erythema. Erythematous changes noted in the lower extremities bilaterally. Desquamative lesions scattered throughout the lower extremity. Psychiatric: She has a normal mood and affect. Her behavior is normal. Judgment and thought content normal. LABS - reviewed pertinent labs as below: Reviewed IMAGING - reviewed, pertinent results as below: Exam: XR CHEST 1 VW 07/07/2020 5:18 PM Clinical History: pneumonia Comparison: Radiograph of 02/20/2018 Technique: AP view of the chest Findings: The heart is enlarged. A left chest wall pacemaker lead overlies the center of the cardiac shadow. The lungs are clear. Aortic knob calcification. Sternotomy wires are noted. No acute osseous abnormality. Subdiaphragmatic vascular calcification. Gas containing substernal abdominal wall hernia is noted. IMPRESSION Impression: Cardiomegaly. No lung consolidation. ASSESSMENT/PLAN Nasir Das is a 79 year old female with PMH as listed above, admitted to the hospital with: 1. Acute exacerbation of CHF (congestive heart failure): unknown etiology -- Continue active diuresis -- Daily weights, strict intake/output, free water restriction -- Check serial troponins -- Echocardiogram is pending 2. Possible cellulitis -- Will continue with antibiotics -- Imaging to rule out any acute vascular etiology 3. Acute cystitis -- Will continue with antibiotics -- Awaiting final urine culture report. 4. Atrial fibrillation: rate controlled -- Will continue with amiodarone. -- Not on anticoagulation (likely due to high fall risk) 5. Hyperglycemia: not in DKA. -- Will continue with outpatient glycemic agent -- Will order ISS Prophylaxis: DVT- enoxaparin Code Status: addressed: FC Estimated LOS: This inpatient admission will likely require greater than or equal to 2 Midnights. Management is not feasible as an outpatient and there is concern for adverse outcomes if not managed in an inpatient setting. Advance care planning discussed for 15 mins with patient at bedside. Surrogate decision maker: ANUPAMA Margarita (child) - [phone] documented in this encounter Consult Notes Patricia Felipe, RD - 07/13/2020 12:05 PM CDT MEDICAL NUTRITION THERAPY- CONSULT NOTE: Reason For Consultation: Screened for poor appetite/ intake. LOS x 6 days, admit date of 07/07. Malnutrition Assessment: Nutritional Diagnosis: None SGA Rating: At Risk Plan: Recommend Renal II/ diabetic diet. Heart healthy/ diabetic diet handouts. Admission Chief Complaint: had concerns including Other (elevated BG) and Foot Pain. 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 has a past surgical history that includes cabg, arterial, four+ and aortic valve replacement. GI and Nutrition Related Findings: Symptoms: N/A Difficulty: N/A GI tract alteration: N/A Alternative means of nutrition: N/A General: Edema- trace leg edema Medications: Current Facility-Administered Medications: sodium chloride tablet 1 g, 1 g, Oral, QID, Aglieco, Jayden G, DO, 1 g at 07/13/20 1145 cefTRIAXone (ROCEPHIN) 1,000 mg in NaCl 0.9% (NS) 50 mL MINI-BAG, 1,000 mg, IV Piggyback, Q12H ABIrina Phelps Adnan, MD, 1,000 mg at 07/13/20 0639 insulin glargine (LANTUS U-100) injection 20 Units, 20 Units, Subcutaneous, QHS, Katt Arevalo MD, 20 Units at 07/12/20 1939 lactobacillus acidophilus (ACIDOPHILLUS) 25 million cell -100 mg captab 1 tablet, 1 tablet, Oral, BID, Katt Arevalo MD, 1 tablet at 07/13/20 0847 calcitrioL (ROCALTROL) capsule 0.5 mcg, 0.5 mcg, Oral, DAILY, [place] Jayden G, DO, 0.5 mcg at 07/13/20 0847 magnesium hydroxide (MILK OF MAGNESIA) 400 mg/5 mL suspension 30 mL, 30 mL, Oral, TIDPRN, Pedro Patterson MD Polyethylene Glycol 3350 (MIRALAX) powder 17 g, 17 g, Oral, BID, Pedro Patterson MD, 17 g at 07/13/20 0846 sennosides (SENOKOT) tablet 8.6 mg, 8.6 mg, Oral, BID, Pedro Patterson MD, 8.6 mg at 07/13/20 0847 dextrose 50 % in water (D50W) injection 25 mL, 25 mL, Slow IV Push, PRN, Pedro Patterson MD diphenhydrAMINE (BENADRYL) tablet 25 mg, 25 mg, Oral, Q4HPRN, Sangeetha Vilchis MD, 25 mg at 07/12/20 195 enoxaparin (LOVENOX) injection 30 mg, 30 mg, Subcutaneous, DAILY, Pedro Patterson MD, 30 mg at1 0847 glucagon (GLUCAGEN DIAGNOSTIC KIT) injection 1 mg, 1 mg, Intramuscular, PRN, Pedro Patterson MD Sliding Scale Insulin - Lispro (HumaLOG) + Fsbg Testing, , Subcutaneous, TID MEALS+HS, Pedro Patterson MD, 2 Units at 07/13/20 1145 acetaminophen (TYLENOL) tablet 650 mg, 650 mg, Oral, Q6HPRN, Pedro Patterson MD, 650 mg at 07/11/20 0245 ALPRAZolam (XANAX) tablet 0.25 mg, 0.25 mg, Oral, D79EECH, Sangeetha Vilchis MD, 0.25 mg at 07/12/20 2343 amiodarone (PACERONE) tablet 200 mg, 200 mg, Oral, QHS, Sangeetha Vilchis MD, 200 mg at 07/12/201941 atorvastatin (LIPITOR) tablet 40 mg, 40 mg, Oral, QHS, Sangeetha Vilchis MD, 40 mg at 07/12/20 194 clopidogreL (PLAVIX) tablet 75 mg, 75 mg, Oral, DAILY, Sangeetha Vilchis MD, 75 mg at 07/13/20 0847 fenofibrate micronized (LOFIBRA) capsule 134 mg, 134 mg, Oral, DAILY, Sangeetha Vilchis MD, 134 mg at 07/13/20 0847 FLUoxetine (PROZAC) capsule 20 mg, 20 mg, Oral, DAILY, Sangeetha Vilchis MD, 20 mg at 07/13/20 0847 hydrALAZINE (APRESOLINE) tablet 25 mg, 25 mg, Oral, Q6HPRN, Sangeetha Vilchis MD, 25 mg at 07/08/20 0001 pantoprazole (PROTONIX) EC tablet 40 mg, 40 mg, Oral, DAILY, Sangeetha Vilchis MD, 40 mg at 07/13/20 0847 primidone (MYSOLINE) tablet 50 mg, 50 mg, Oral, BID, Sangeetha Vilchis MD, 50 mg at 07/13/20 0847 SITagliptin (JANUVIA) tablet 50 mg, 50 mg, Oral, DAILY, Sangeetha Vilchis MD, 50 mg at 07/13/20 0847 Lab and Medical Test Results: NA (mmol/L) Date Value 07/13/2020 130 (L) K (mmol/L) Date Value 07/13/2020 4.5 CALCIUM (mg/dL) Date Value 07/13/2020 8.6 CL (mmol/L) Date Value 07/13/2020 99 BUN (mg/dL) Date Value 07/13/2020 37 (H) CREATININE (mg/dL) Date Value 07/13/2020 3.57 (H) GLUCOSE (mg/dL) Date Value 07/13/2020 126 (H) CO2 TOTAL (mmol/L) Date Value 07/13/2020 22 (L) ALBUMIN (g/dL) Date Value 07/11/2020 2.8 (L) T PROTEIN (g/dL) Date Value 07/11/2020 5.5 (L) TOTAL BILI (mg/dL) Date Value 07/11/2020 0.7 BILI UNCON (mg/dL) Date Value 07/07/2020 0.7 BILI CONJ (mg/dL) Date Value 07/07/2020 0.0 ALT(SGPT) (U/L) Date Value 06/04/2018 33 ALTv (U/L) Date Value 07/11/2020 11 AST(SGOT) (U/L) Date Value 07/11/2020 27 ALK PHOS (U/L) Date Value 07/11/2020 93 Results for NASIR DAS ( ) as of 07/13/2020 12:07 Ref. Range 07/07/2020 16:15 HGB A1C Latest Ref Range: 4.0 - 6.0 % 11.2 (H) Nutrition Assessment: Age: [age] year old Sex: female Ht: Ht Readings from Last 3 Encounters: 07/07/20 1.727 m (5' 8") 09/03/16 1.702 m (5' 7") 03/13/16 1.702 m (5' 7") Current Wt: Wt Readings from Last 1 Encounters: 07/13/20 79.5 kg (175 lb 3.2 oz) BMI: Body mass index is 26.64 kg/m. (Overweight) IBW for Ht: 63.6 kg +/- 6.3 kg %IBW: 125% Weight History: Wt Readings from Last 10 Encounters: 07/13/20 79.5 kg (175 lb 3.2 oz) 06/30/20 72.6 kg (160 lb) 09/03/16 86.7 kg (191 lb 3.2 oz) 03/13/16 88.5 kg (195 lb) 06/20/15 88 kg (194 lb) Inflammatory Markers: Hyperglycemia Current Dietary Order(s): Orders Placed This Encounter Procedures Regular Diet; Texture: Regular.; Other Modifiers: Fluid Restriction Please limit all bread/rice/pasta/starch to 10 grams per meal. Double portions of eggs, meat, fish, vegetables. Eliminate all sugar and sweet drinks. OK for full-fat yogurt, chees... EMR Documented Food Allergies/Intolerance/Cultural Preferences: Allergies Allergen Reactions Codeine Hallucinations Morphine Hallucinations Penicillin Rash Nutrition & Diet History: Patient reports feeling overwhelmed at meal times recently because her plate is full of food, so shejust doesn't eat. Lunch tray untouched at bedside. Patient reports not needing a diabetic diet education, and she will have a "lady she piper helper us eat what we need to eat". RD explained the importance of following a heart healthy consistent carbohydrate diet. Patient was resting with her eyes closed, answering questions with minimal answers regarding her diet history. Will attempt another education if time allows. RD reviewed patient's labs, and will continue to monitor. Education: Handouts from the Nutrition Care Manual - Heart healthy consistent carbohydrate nutrition therapy: Diet focuses on less processed, more fresh whole grains, lean protein options, a variety of fruits/ vegetables, low fat dairy, and heart healthy fats. Additional topics include: what foods have carbohydrates, how to count them, how many to have at each meal/ snack, the importance of fiber and limiting added sugar. Discussed with patient the importance of following a low sodium diet: shopping tips were included in handout. Recommended/ not recommended foods as well as a sample menu were included. - How do I measure my fluid intake? Handout: addresses what counts as a fluid, common conversions for fluid amounts (mL, L, oz, cups), and has tips to reduce thirst. - Food list for carbohydrate counting: lists foods that count as 1 serving of carbohydrates (15 grams). Examples include, 1 slice bread, 1 small fruit, 1 cup milk, etc. - Using nutrition labels: carbohydrates: how to read a nutrition label and count carbohydrates. 1 serving= 15 g of carbohydrates. Patient may have no more than 13 choices per day. - Sodium free flavoring tips: how to season/ flavor food without salt, gives food items and different flavorings to pair with it. A no added sodium spice blend recipe is included. Patient reports not needing a nutrition education at this time. Handouts were left in her folder to take home to review. Patient had no questions regarding her diet at visit. Calculated Daily Nutritional Needs: CBW= 79.5 kg, IBW= 63.6 kg Calories: 1600 kcal/day = 20 kcal/kg current wt = 25 kcal/kg IBW = MSJ x 1.2 Protein: 12% of kcal need/day = 50 g/day = 0.6 g/kg current wt = 0.8 g/kg IBW Carbohydrates: 50% of kcal need/day = 195 g/day (13 choices) Fluid: 1500 mL/day or per MD; adjust per acute needs (on fluid restriction of 1000 mL) Nutrition Diagnosis: PES #1: Not ready for diet/ lifestyle change related to patient report of not needing to change her diet as evidenced by patient declining need for heart healthy diabetic diet education PES #2: Altered nutrition related laboratory values related to type 2 diabetes as evidenced by A1c of 11.2% and elevated glucose levels PES #3: Altered nutrition related laboratory values related to PIOTR/ CKD 3 as evidenced by creatinineof 3.57 and GFR of 12.3 Nutrition Intervention(s): Interventions: 1. Recommend Renal II / diabetic diet to help preserve kidney function/ provide adequate amount of carbohydrates 2. Recommend small more frequent meals/ snacks 3. Encouraged adequate oral intake - offered to take food preferences (patient had none at visit) 4. Recommend daily weights 5. Recommend Glucerna 1.2 starla if intake is below 50% 6. Provided heart healthy/ diabetic diet handouts 7. Will monitor diet tolerance, intake, GI function, and nutrition related labs Goals: 1. The pt's documented intake is no less than 75% of provided meals 2. Target blood glucose level of <180 mg/dL D/C Planning: Heart healthy consistent carbohydrate diet with 3- 5 servings of carbohydrates at eachmeal, and 1-2 servings of carbohydrates at each snack for no more than 13 choices per day. Focus on whole grains, low fat dairy, lean proteins, and fruits/ vegetables. Limit added/ refined sugar. 2000 mg of sodium or less per day. Fluid restriction per MD. Patient would benefit from seeing an outpatient dietitian. Nutrition Monitoring and Evaluation: A registered dietitian will f/u in 4-5 days to report nutrition related information and to revise the recommended nutrition intervention(s) if necessary; please page with questions or concerns, thank-you. Patricia Felipe RD,RADHA RD Office: [phone] signed by Patricia Felipe RD at 07/13/2020 1:51 PM Milvia Fatima - 07/10/2020 12:46 PM CDTAssociated Order(s): CONSULT PS PASTORAL CAREEncounter: Visited with patient per pastoral care consult Congregation: [employer] Assessment: Patient expressed supportive relationships with pablo community although the pandemic limits gathering; patient expressed good family support although geographic distance limits their availability. Patient expressed prayer need. Patient is coping well; she has a grateful spirit and expressed that gratitude; she is peaceful and calm. Intervention: Initiated a relationship of care and support with patient Listened empathetically as patient's narrative was facilitated Identified and evaluated support system Explored issues of pablo and belief Provided prayer Outcome: Patient shared narrative including life review Patient distinguished between matters within and beyond her control Patient expressed gratitude for life experiences and important relationships Patient expressed gratitude for visit and guncotton packer's presence; she affirmed and verbally appreciatedthe work of records tech Plan of Care: No further visited needed at this time but follow-up support is available if needed Family Assessment: NA Chaplain Milvia Ramirez Amy Ramos PT - 07/10/2020 10:45 AM CDTAssociated Order(s): CONSULT ADULT PHYSICAL THERAPY 07/10/2020 Patient agreeable to working with physical therapy. Patient met Supine. PHYSICAL THERAPY EVALUATION Consult received, chart reviewed and evaluation complete this date. Patient is referred to PT for evaluation and treatment. Patient is a 79 year old female who presents to hospital for CHF. Discharge Recommendations: Therapy Needs and Potential: Patient without any skilled PT needs at this time. Challenges to Home Transition: increased risk of falls Equipment recommendations: no device Current Functional Status and/or Treatment:Functional mobility training, Transfer training and Gait training Bed Mobility: Rolling: Independent Supine-sit: Independent Reclined to sitting: Independent Sitting balance Good Supine to sit: Independent Scooting to edge of bed: Independent. Transfers: Sit to stand: Independent using Rolling Walker Stand to sit: Independent using Quad Cane Static/dynamic standing balance: Good Ambulation: Assisted patient with ambulation as follows: 25 feet using Rolling Walker, Quad Cane and Independent. Pt started ambulation with rolling walker and then switched to quad cane for more appropriatedequipment assistance. After session, patient Up in chair. RN was notified of current status and a call button provided. PLAN OF CARE: PT signs off. See below for complete details. Admit Date: 07/07/2020 Hospital Diagnosis:CHF PT Diagnosis: Weakness Weight Bearing Precaution: NA General Precautions: PPE used:Gloves and Surgical mask, Fall Bracing/Cast present or required:N/A PMH: Past Medical History: Diagnosis Date CAD (coronary artery disease) DM2 (diabetes mellitus, type 2) HTN (hypertension) PSH: Past Surgical History: Procedure Laterality Date AORTIC VALVE REPLACEMENT CABG, ARTERIAL, FOUR+ Prior Living Situation: lives alone and house, no stairs to access home. DME: Quad Cane Prior level of Mobility: community ambulation, house hold ambulation Subjective: Pt stated she was cold but otherwise was feeling good today. Patient/Family Goals: Pt wants to return home. Patient/Family verbalizes understanding of condition: Yes PAIN: denies pain COMMUNICATION Primary Language: [place] Able to Verbalize needs: Yes Vision:good; no issues reported Hearing:hard of hearing ORIENTATION/COGNITION: Oriented to: person, place and date/time Awake: Yes Alert: Yes Dizzy: No Follows Commands: Yes 1-Step Yes Multi-Step Yes Inconsistent: No NEUROLOGICAL Light Touch: within functional limits bilateral LE Heel to grant: WFL Tone: WFL BALANCE: Sitting: Static: Good Dynamic: Good Standing: Static: Good Dynamic: Fair+ RANGE OF MOTION: within functional limits bilateral LE STRENGTH: 3+/5 (F+), bilateral LE ENDURANCE: Good, No oxygen needed. SKIN INTEGRITY: intact PROBLEM LIST: Decreased strength and Safety awareness deficits ASSESSMENT: Patient is a 79 year old female seen secondary to the above listed diagnosis. No furtherinpatient PT needs identified at this time. Pt was able to ambulate independently with no verbal orvisual queuing needed. Pt was instructed on proper use of quad cane but use of the cane is not necessary due to appropriate independence with ambulation. Rehabilitation Potential: good Goals: The following goals are to maximize independence and safety with functional mobility to eventually return to prior living situation and prior functional status. Defer as no PT needs. Treatment Plan: Discharge from PT PATIENT EDUCATION: Patient provided with preferred teaching of verbal information on role of PT, plan of care, correct use of quad cane. Shows readiness to learn. Verbal instruction teaching provided. Individual is able to read and verbalizes understanding of teaching provided. Total Time Tx Codes in Minutes: 8 min Total Treatment Time in Minutes: 15 min RENAN Campbell, PT [place] PT License [id number] [facility] Rehabilitation Services Department (phone) (fax) Jayden Shaw DO - 07/10/2020 10:43 AM CDTAssociated Order(s): CONSULT NEPHROLOGY Nephrology Consult Admit Date: 07/07/2020 PCP: Efra Avila Referring Physician: Dr. Patterson Reason for Referral: PIOTR Admitting Dx: CHF CHIEF COMPLAINT: Edema HISTORY OF PRESENT ILLNESS: Nasir Das is a 79 year old female that presented to the ER with moderate, progressive LE edema with associated weakness and dyspnea. 79 year-old female with pmh of atrial fibrillation, CAD s/p CABG, DM, HTN, CHF (unknown ejection fraction) who presents to the ED secondary to lower extremity leg swelling and uncontrolled blood sugars. Of note, patient recently underwent right hemiarthroplasty about 1 month ago. Patient notes subsequently after surgery she started having swelling in her lower extremities associated with pain, swelling, and intermittent numbness. She denies any fever or chills. She denies any chest pain, shortness of breath, nausea, or vomiting. Due to the worsening state of her legs, she decided to come to the ED. ROS as stated above. All other ROS negative. Fatigue and weakness. Temp: [36.1 C (96.9 F)-36.8 C (98.2 F)] Pulse: [67-78] Resp: [18] BP: (120-130)/(71-83) MAP (mmHg): [86] PE: Gen: NAD HEENT: NCAT. MMM. Neck: Supple. No LAD. Lungs: CTA CVS: RRR Abd: Soft. NT. +BS Ext: No C/C. LE Edema 1+ Skin: No rash Psych: AAO Neuro: Normal speech ASSESSMENT/PLAN Nasir Das is a 79 year old female with PMH as listed above, admitted to the hospital with: The primary encounter diagnosis was Hyperglycemia. Diagnoses of Lactic acidosis, New onset a-fib, Acute congestive heart failure, unspecified heart failure type, Lymphedema, Elevated troponin, Congestive heart failure, unspecified HF chronicity, unspecified heart failure type, and Claudication of bothlower extremities were also pertinent to this visit. A/ PIOTR in the setting of diuresis Hyponatremia Hypocalcemia CKD III with proteinuria HTN with CKD/ CHF complicated by episodes of hypotension Systolic CHF, A/C DM II with CKD A1C 11.2 Anemia in chronic illness. Iron Deficiency 10%. Acute cystitis P/ Continue current POC and Medications other than changes listed below. Please see chart and orders for complete details. Agree with holding diuretic at this time. Give a dose of IV iron today. Start Calcitriol. Continue abx. No NSAIDs. AM labs. Daily weight. Thank you kindly for the consultation. Case reviewed with Dr. Patterson. Vitals: 07/09/20 1918 07/09/20 2331 07/10/20 0338 07/10/20 0754 BP: 124/83 130/73 129/77 127/76 Pulse: 78 71 73 67 Resp: 18 18 Temp: 36.3 C (97.4 F) 36.1 C (97 F) 36.1 C (96.9 F) 36.8 C (98.2 F) TempSrc: Temporal Artery Temporal Artery Temporal Artery Tympanic SpO2: 95% 92% 94% 93% Weight: 77 kg (169 lb 11.2 oz) Height: LABS - reviewed in the chart: CBC BMP PT/INR WBC (10*3/L) Date Value 07/10/2020 6.80 NA (mmol/L) Date Value 07/10/2020 132 (L) No results found for: PT RBC (10*6/L) Date Value 07/10/2020 4.25 K (mmol/L) Date Value 07/10/2020 4.5 INR (no units) Date Value 07/07/2020 1.3 PLT (10*3/L) Date Value 07/10/2020 208 CALCIUM (mg/dL) Date Value 07/10/2020 8.3 (L) HGB (g/dL) Date Value 07/10/2020 10.9 (L) CL (mmol/L) Date Value 07/10/2020 98 aPTT HCT (%) Date Value 07/10/2020 33.5 (L) BUN (mg/dL) Date Value 07/10/2020 30 (H) APTT Patient (Seconds) Date Value 07/07/2020 25 CREATININE (mg/dL) Date Value 07/10/2020 2.15 (H) IMAGING - reviewed in the chart: Hospital Encounter on 07/07/20 XR CHEST 1 VW Narrative Exam: XR CHEST 1 VW 07/07/2020 5:18 PM Clinical History: pneumonia Comparison: Radiograph of 02/20/2018 Technique: AP view of the chest Findings: The heart is enlarged. A left chest wall pacemaker lead overlies the center of the cardiac shadow. The lungs are clear. Aortic knob calcification. Sternotomy wires are noted. No acute osseous abnormality. Subdiaphragmatic vascular calcification. Gas containing substernal abdominal wall hernia is noted. Impression Impression: Cardiomegaly. No lung consolidation. PAST MEDICAL HISTORY Past Medical History: Diagnosis Date CAD (coronary artery disease) DM2 (diabetes mellitus, type 2) HTN (hypertension) Past Surgical History: Procedure Laterality Date AORTIC VALVE REPLACEMENT CABG, ARTERIAL, FOUR+ ALLERGIES Allergies Allergen Reactions Codeine Hallucinations Morphine Hallucinations Penicillin Rash MEDICATIONS reviewed in the chart. Current Facility-Administered Medications Medication Dose Route Frequency Last Rate Last Dose calcitrioL (ROCALTROL) capsule 0.5 mcg 0.5 mcg Oral DAILY magnesium hydroxide (MILK OF MAGNESIA) 400 mg/5 mL suspension 30 mL 30 mL Oral TIDPRN Polyethylene Glycol 3350 (MIRALAX) powder 17 g 17 g Oral BID 17 g at 07/09/20 2113 sennosides (SENOKOT) tablet 8.6 mg 8.6 mg Oral BID 8.6 mg at 07/10/20 0911 dextrose 50 % in water (D50W) injection 25 mL 25 mL Slow IV Push PRN diphenhydrAMINE (BENADRYL) tablet 25 mg 25 mg Oral Q4HPRN 25 mg at 07/08/20 0341 enoxaparin (LOVENOX) injection 30 mg 30 mg Subcutaneous DAILY 30 mg at 07/10/20 0914 glucagon (GLUCAGEN DIAGNOSTIC KIT) injection 1 mg 1 mg Intramuscular PRN insulin glargine (LANTUS U-100) injection 20 Units 20 Units Subcutaneous QHS 20 Units at 07/09/202109 Sliding Scale Insulin - Lispro (HumaLOG) + Fsbg Testing Subcutaneous TID MEALS+HS Stopped at1 0800 acetaminophen (TYLENOL) tablet 650 mg 650 mg Oral Q6HPRN ALPRAZolam (XANAX) tablet 0.25 mg 0.25 mg Oral [id number] 0.25 mg at 07/09/202133 amiodarone (PACERONE) tablet 200 mg 200 mg Oral QHS 200 mg at 07/09/202112 atorvastatin (LIPITOR) tablet 40 mg 40 mg Oral QHS 40 mg at 07/09/202112 cefTRIAXone (ROCEPHIN) 1,000 mg in NaCl 0.9% (NS) 50 mL MINI-BAG 1,000 mg IV Piggyback Q24H ABX 1,000 mg at 07/09/202113 clopidogreL (PLAVIX) tablet 75 mg 75 mg Oral DAILY 75 mg at 07/10/20911 fenofibrate micronized (LOFIBRA) capsule 134 mg 134 mg Oral DAILY 134 mg at 07/10/20 0911 FLUoxetine (PROZAC) capsule 20 mg 20 mg Oral DAILY 20 mg at 07/10/20 09 hydrALAZINE (APRESOLINE) tablet 25 mg 25 mg Oral Q6HPRN 25 mg at 07/08/20 0001 pantoprazole (PROTONIX) EC tablet 40 mg 40 mg Oral DAILY 40 mg at 07/10/20911 primidone (MYSOLINE) tablet 50 mg 50 mg Oral BID 50 mg at 07/10/20 09 SITagliptin (JANUVIA) tablet 50 mg 50 mg Oral DAILY 50 mg at 07/10/20 0911 SOCIAL HISTORY Social History Socioeconomic History Marital status: Spouse [...] file Gets together: Not on file Attends moravian service: Not on file Active member of [...] file Social History Narrative Not on file FAMILY History Family History Problem Relation Age of Onset Diabetes Mother Amanda Baires MD - 07/08/2020 5:53 PM CDTAssociated Order(s): CONSULT CARDIOLOGY [facility] Cardiology Consult PCP: Efra Avila Date of Service: 07/08/2020 CHIEF COMPLAINT/reason for consult: heart failure, Afib HISTORY OF PRESENT ILLNESS This is an 79 year-old female with PMH CAD s/p CABG, HFrEF with LVEF around 23%, s/p ICD, chronic Afib, s/p AVR, HTN, DM, HLD, etc. For the past few days she has noted progressive leg edema with weeping wound, dyspnea on exertion, and orthopnea. Uncertain of weight gain. She came to [facility] ER. Found to have UTI. Has been started on IV lasix with improvement in her breathing. Troponin was mildly elevated. NO chest pain. Last admission for HF in 04/[address] in [facility]. Dr. Delgado's patient. PAST MEDICAL HISTORY Past Medical History: Diagnosis Date CAD (coronary artery disease) DM2 (diabetes mellitus, type 2) HTN (hypertension) Past Surgical History: Procedure Laterality Date AORTIC VALVE REPLACEMENT CABG, ARTERIAL, FOUR+ Family History Problem Relation Age of Onset Diabetes Mother ALLERGIES Allergies Allergen Reactions Codeine Hallucinations Morphine Hallucinations Penicillin Rash MEDICATIONS No current facility-administered medications on file prior to encounter. Current Outpatient Medications on File Prior to Encounter Medication Sig Dispense Refill ALPRAZolam (XANAX) 0.25 [...] DAY 6 spironolactone (ALDACTONE) 50 mg tablet LAYDianaMALIKSj SOLOSTAR 300 unit/mL (1.5 mL) InPn INJECT SUB 40 UNITS EVERY DAY 3 SOCIAL HISTORY Social History Socioeconomic History Marital status: Spouse [...] file Gets together: Not on file Attends moravian service: Not on file Active member of [...] file Social History Narrative Not on file REVIEW OF SYSTEMS General: (-) fever, (-) chills, (-) weight change, (-) dizziness, (+) fatigue Skin: (-) rash HEENT: (-) headache, (-) change in vision Neck: (-) difficulty swallowing Heme: negative Resp: (-) cough, (+) dyspnea on exertion Cardio: (-) chest pain, (-) palpitations, (-) syncope GI: (-) vomiting, (-) diarrhea : negative Endo: (+) diabetes, (-) thyroid disease Neuro: (-) numbness, (-) tingling, (+) weakness Back: (-) pain LUZ MARIA: (-) muscle pain, (-) claudication Psych: (-) anxiety, (-) depression PHYSICAL EXAMINATION Vitals: 07/08/20 0520 07/08/20 0752 07/08/20 1110 07/08/20 1553 BP: 125/66 108/56 107/60 Pulse: 75 67 72 Resp: 18 18 18 Temp: 36.3 C (97.3 F) 36.1 C (97 F) 36.8 C (98.3 F) TempSrc: Temporal Artery Temporal Artery Temporal Artery SpO2: 95% 96% 94% Weight: 77.5 kg (170 lb 12.8 oz) Height: Constitutional: alert and oriented x 3 (person, place and date/time); no apparent distress ENT: normocephalic atraumatic, supple, no lymphadenopathy, no bruits, no JVD Lungs: clear to auscultation bilaterally Cardiovascular: S1, S2 normal, irregular; no murmurs, rubs or gallops GI: soft; non-tender; non-distended; normoactive bowel sounds : not examined Musculoskeletal: Extremities: no clubbing, cyanosis, + edema Skin: no rashes Neuro: no focal deficits LABS - reviewed pertinent labs as below: CBC BMP PT/INR WBC (10*3/L) Date Value 07/08/2020 6.91 NA (mmol/L) Date Value 07/08/2020 134 (L) No results found for: PT PLT (10*3/L) Date Value 07/08/2020 236 K (mmol/L) Date Value 07/08/2020 4.2 INR (no units) Date Value 07/07/2020 1.3 HGB (g/dL) Date Value 07/08/2020 12.0 BUN (mg/dL) Date Value 07/08/2020 23 HCT (%) Date Value 07/08/2020 37.7 CREATININE (mg/dL) Date Value 07/08/2020 1.04 LIPID PROFILE GLUCOSE (mg/dL) Date Value 07/08/2020 193 (H) CHOL (mg/dL) Date Value 09/03/2016 187 TSH LDL CHOL (mg/dL) Date Value 09/03/2016 89 TSH (mIU/L) Date Value 07/07/2020 4.81 (H) CARDIAC ENZYMES HDL (mg/dL) Date Value 09/03/2016 47 (L) No results found for: CK TRIG (mg/dL) Date Value 09/03/2016 255 (H) LFTs No results found for: CKMB AST(SGOT) (U/L) Date Value 07/07/2020 33 TROPONIN I (ng/mL) Date Value 07/08/2020 0.085 (H) ALT(SGPT) (U/L) Date Value 06/04/2018 33 ALTv (U/L) Date Value 07/07/2020 18 No results found for: BNP IMAGING - reviewed, pertinent results as below: CXR--mild interstitial changes EKG: Atrial fibrillation Incomplete right bundle branch block Anteroseptal infarct age undetermined ASSESSMENT/PLAN Principal Problem: Acute on chronic combined systolic and diastolic congestive heart failure Active Problems: 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 Essential hypertension Dyslipidemia S/P AVR Coronary artery disease involving [place] coronary artery of [place] heart without angina pectoris ICD (implantable cardioverter-defibrillator) in place Persistent atrial fibrillation UTI (urinary tract infection) Troponin I above reference range Acute on chronic HFrEF--Significant volume overload on exam. Will continue IV lasix 40 mg BID as tolerated. Low salt diet, I/O, daily weight. She has not been on beta alvina or ACEI/ARB probably due to low BP. Continue spironolactone. Chronic Afib with controlled rate--Will continue amiodarone 200 mg daily. Not on anticoagulation probably due to bleeding risk. Troponin elevation--suspect type 2 [place] due to UTI, HF exacerbation etc. Will get ECHO to assess LVEF and wall motion. CAD--s/p CABG. Continue plavix and lipitor. S/p AVR S/p ICD--seems epicardial lead. HTN--well controlled. Continue spironolactone. HLD--continue lipitor. UTI--per primary team. Thank you for allowing us to participate in the care of your patient. Please feel free to contact usfor any questions or if we can be of further assistance. Amanda Quick MD, FACC, EULOGIO Educational Therapy Teacher, Division of Cardiology [facility] documented in this encounter ED Notes Ronald Yanez RN - 07/07/2020 4:00 PM CDTPatient BG elevated today more than 500. Patient has bilateral lower extremities swollen and blisters. Redness noted. Patient says patient broke right hip one month ago and has had surgery for that. Patient is alert and awake. Can walk with cane. 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 Chief Complaint Chief Complaint Patient presents with Other elevated BG Foot Pain HPI History provided by: Patient Illness Location: General Severity: Moderate Onset quality: Gradual Timing: Constant Progression: Worsening Chronicity: New Context: Compalins of dietary indiscretion and hyperglycemia Relieved by: Nothing Worsened by: Nothing Associated symptoms: rash Associated symptoms: no abdominal pain, no chest pain, no cough, no fatigue, no fever, no headaches,no nausea, no shortness of breath, no vomiting and no wheezing Past Medical History / Immunizations Past Medical History: Diagnosis Date CAD (coronary artery disease) DM2 (diabetes mellitus, type 2) HTN (hypertension) Tetanus received in last 5 years: Unknown Childhood immunizations: Up-to-date Past Surgical History Past Surgical History: Procedure Laterality Date AORTIC VALVE REPLACEMENT CABG, ARTERIAL, FOUR+ Allergies Allergies Allergen Reactions Codeine Hallucinations Morphine Hallucinations Penicillin Rash Social History Tobacco Use Never smoked or used smokeless tobacco. Alcohol Use Never. Frequency of alcohol consumption: Never Frequency of binge drinking: Never Review of Systems Review of Systems Constitutional: Negative. Negative for chills, fatigue, fever and unexpected weight change. HENT: Negative. Eyes: Negative. Negative for discharge and itching. Respiratory: Negative. Negative for cough, chest tightness, shortness of breath and wheezing. Cardiovascular: Negative. Negative for chest pain and palpitations. Gastrointestinal: Negative. Negative for abdominal distention, abdominal pain, nausea and vomiting. Genitourinary: Negative. Negative for dysuria, urgency, frequency and flank pain. Musculoskeletal: Negative. Skin: Positive for rash. Negative for color change, pallor and wound. Neurological: Negative. Negative for dizziness, syncope, light-headedness and headaches. Psychiatric/Behavioral: Negative. Negative for agitation and behavioral problems. All other systems reviewed and are negative. Endocrine: Positive for polyphagia. Physical Exam BP 110/75 | Pulse 95 | Temp 36.5 C (97.7 F) (Temporal Artery) | Resp 18 | Ht 1.727 m (5' 8") | Wt 78 kg (171 lb 14.4 oz) | SpO2 93% | BMI 26.14 kg/m Physical Exam Vitals signs reviewed. Constitutional: Appearance: She is well-developed. HENT: Head: Normocephalic and atraumatic. Eyes: Conjunctiva/sclera: Conjunctivae normal. Neck: Musculoskeletal: Neck supple. Cardiovascular: Rate and Rhythm: Normal rate and regular rhythm. Heart sounds: Normal heart sounds. Pulmonary: Effort: Pulmonary effort is normal. No respiratory distress. Breath sounds: Normal breath sounds. No stridor. No wheezing or rales. Abdominal: General: Bowel sounds are normal. There is no distension. Palpations: Abdomen is soft. Tenderness: There is no abdominal tenderness. There is no guarding or rebound. Musculoskeletal: Normal range of motion. Right lower leg: Edema present. Left lower leg: Edema present. Skin: General: Skin is warm and dry. Comments: Diffuse total body excoriations with associated redness Neurological: Mental Status: She is alert and oriented to person, place, and time. Cranial Nerves: No cranial nerve deficit. Sensory: No sensory deficit. Psychiatric: Behavior: Behavior normal. Thought Content: Thought content normal. Judgment: Judgment normal. Labs Recent Results (from the past 24 hour(s)) POCT GLUCOSE (AUTOMATED) Collection Time: 07/08/20 7:56 AM Result Value Ref Range POCT GLU 198 (H) 70 - 110 mg/dL POCT GLUCOSE (AUTOMATED) Collection Time: 07/08/20 11:15 AM Result Value Ref Range POCT GLU 187 (H) 70 - 110 mg/dL POCT GLUCOSE (AUTOMATED) Collection Time: 07/08/20 4:37 PM Result Value Ref Range POCT GLU 236 (H) 70 - 110 mg/dL POCT GLUCOSE (AUTOMATED) Collection Time: 07/08/20 8:08 PM Result Value Ref Range POCT GLU 184 (H) 70 - 110 mg/dL BASIC METABOLIC PANEL (NA, K, CL, CO2, GLUCOSE, BUN, CREATININE, CA) Collection Time: 07/09/20 5:03 AM Result Value Ref Range NA 133 (L) 135 - 145 mmol/L K 4.5 3.5 - 5.0 mmol/L CL 100 98 - 108 mmol/L CO2 TOTAL 27 23 - 31 mmol/L AGAP 6 2 - 16 BUN 24 (H) 7 - 23 mg/dL GLUCOSE 107 70 - 110 mg/dL CREATININE 1.46 (H) 0.50 - 1.04 mg/dL CALCIUM 8.2 (L) 8.6 - 10.6 mg/dL eGFR Calculation (Non-) 34.4 mL/min/1.73m2 eGFR Calculation () 41.7 mL/min/1.73m2 Imaging Hospital Encounter on 07/07/20 XR CHEST 1 VW Narrative Exam: XR CHEST 1 VW 07/07/2020 5:18 PM Clinical History: pneumonia Comparison: Radiograph of 02/20/2018 Technique: AP view of the chest Findings: The heart is enlarged. A left chest wall pacemaker lead overlies the center of the cardiac shadow. The lungs are clear. Aortic knob calcification. Sternotomy wires are noted. No acute osseous abnormality. Subdiaphragmatic vascular calcification. Gas containing substernal abdominal wall hernia is noted. Impression Impression: Cardiomegaly. No lung consolidation. Orders and Treatments Orders Placed This Encounter Procedures Critical Care XR CHEST [address] ANGIOGRAM LOWER EXTREMITY BILATERAL W CONTRAST CBC with Differential Basic Metabolic Panel (NA, K, CL, CO2, GLUCOSE, BUN, CREATININE, CA) Hepatic Function Panel (ALB, T.PRO, BILI T, BU/BC, ALT, AST, ALK PHOS) aPTT Prothrombin Time (PT) / INR BLOOD CULTURE SCREEN BLOOD CULTURE SCREEN AC PANEL 21 + LACTIC ACID COVID-19 (ID NOW RAPID TESTING) Urinalysis POCT GLUCOSE (AUTOMATED) LAB ONLY COVID INTERPRETATION N-TERMINAL PRO-BNP TROPONIN I GLYCOSYLATED HEMOGLOBIN (A1C) URINE CULTURE THYROID STIMULATING HORMONE VITAMIN B1 (THIAMINE), WHOLE BLOOD VITAMIN D, 25-OH VITAMIN B12, LEVEL FOLATE FERRITIN SERUM IRON PANEL CBC with Differential Basic Metabolic Panel (NA, K, CL, CO2, GLUCOSE, BUN, CREATININE, CA) POCT GLUCOSE (AUTOMATED) TROPONIN I TROPONIN I POCT GLUCOSE (AUTOMATED) POCT GLUCOSE (AUTOMATED) BASIC METABOLIC PANEL (NA, K, CL, CO2, GLUCOSE, BUN, CREATININE, CA) N-TERMINAL PRO-BNP POCT GLUCOSE (AUTOMATED) POCT GLUCOSE (AUTOMATED) CONSULT CARDIOLOGY CONSULT ADULT PHYSICAL THERAPY Consult PS Pastoral Care ECHO ROUTINE W/DOPPLER COLOR Orders Placed This Encounter Medications DISCONTD: NaCl 0.9% (NS) bolus infusion 1,000 mL meclizine (TRAVEL-EASE (MECLIZINE)) tablet 25 mg DISCONTD: NaCl 0.9% (NS) bolus infusion 1,000 mL ondansetron (ZOFRAN (PF)) injection 4 mg DISCONTD: furosemide (LASIX) injection 40 mg enoxaparin (LOVENOX) injection 70 mg acetaminophen (TYLENOL) tablet 650 mg traMADoL (ULTRAM) tablet 50 mg cefTRIAXone (ROCEPHIN) 1,000 mg in NaCl 0.9% (NS) 50 mL MINI-BAG furosemide (LASIX) injection 40 mg ALPRAZolam (XANAX) tablet 0.25 mg amiodarone (PACERONE) tablet 200 mg atorvastatin (LIPITOR) tablet 40 mg clopidogreL (PLAVIX) tablet 75 mg fenofibrate micronized (LOFIBRA) capsule 134 mg FLUoxetine (PROZAC) capsule 20 mg SITagliptin (JANUVIA) tablet 50 mg pantoprazole (PROTONIX) EC tablet 40 mg primidone (MYSOLINE) tablet 50 mg spironolactone (ALDACTONE) tablet 50 mg hydrALAZINE (APRESOLINE) tablet 25 mg diphenhydrAMINE (BENADRYL) tablet 25 mg iohexol (OMNIPAQUE 350 BULK-150 mL) injection 150 mL dextrose 50 % in water (D50W) injection 25 mL glucagon (GLUCAGEN DIAGNOSTIC KIT) injection 1 mg Sliding Scale Insulin - Lispro (HumaLOG) + Fsbg Testing insulin glargine (LANTUS U-100) injection 20 Units enoxaparin (LOVENOX) injection 30 mg Procedures See ED Procedure Note Notes & MDM Patient was evaluated for an emergency medical condition related to Other (elevated BG) and Foot Pain . Differential diagnoses considered by presenting complaints but not limited to: Time 1653 Rate 94 Afib Incomplete RBBB Q waves in septal leads [place] normal Abnormal EKG History, physical exam findings, results of visit, differential diagnosis, medication regimens and plan of future care have been considered. Additional MDM may be found in the ED course. Differential diagnosis considered and final disposition made based on information gathered during evaluation and may not be completely ruled out or specifically listed. Vital signs were rechecked before final disposition. Diagnosis ICD-10-CM ICD-9-CM 1. Hyperglycemia R73.9 790.29 2. Lactic acidosis E87.2 276.2 3. New onset a-fib I48.91 427.31 4. Acute congestive heart failure, unspecified heart failure type I50.9 428.0 5. Lymphedema I89.0 457.1 6. Elevated troponin R77.8 790.6 7. Congestive heart failure, unspecified HF chronicity, unspecified heart failure type I50.9 428.0 8. Claudication of both lower extremities I73.9 443.9 Disposition & Follow Up ED Disposition ED Disposition Condition Comment Admit - Observation Stable Is this patient COVID positive or a patient under investigation (PUI)?: No Treatment Team: [facility] [[id number]] Primary reason for admission: CHF (congestive heart failure) [696064] Secondary reason for admission: New onset a-fib [167446] Secondary r byron for admission: Lactic acidosis [181372] Secondary reason for admission: Hyperglycemia [392051] Secondary reason for admission: Elevated troponin [167205] Secondary reason for admission: Lymphedema [720690] Is (or was) this a planned re-admi ssion?: No Dr. Patterson accepted at 1740 Current Discharge Medication List STOP taking these medications ALPRAZolam (XANAX) 0.25 mg tablet Comments: Reason for Stopping: amiodarone (CORDARONE) 200 mg tablet Comments: Reason for Stopping: atorvastatin (LIPITOR) 40 mg tablet Comments: Reason for Stopping: Blood Pressure Monitor (BLOOD PRESSURE KIT) Kit Comments: Reason for Stopping: clopidogrel (PLAVIX) 75 mg tablet Comments: Reason for Stopping: fenofibrate micronized (LOFIBRA) 134 mg capsule Comments: Reason for Stopping: FLUoxetine (PROZAC) 20 mg capsule Comments: Reason for Stopping: furosemide (LASIX) 40 mg tablet Comments: Reason for Stopping: JANUVIA 50 mg tablet Comments: Reason for Stopping: pantoprazole (PROTONIX) 40 mg EC tablet Comments: Reason for Stopping: primidone (MYSOLINE) 50 mg tablet Comments: Reason for Stopping: spironolactone (ALDACTONE) 50 mg tablet Comments: Reason for Stopping: TOUJEO SOLOSTAR 300 unit/mL (1.5 mL) InPn Comments: Reason for Stopping: Saurabh Rosenthal Jr., MD Clinical Educational Therapy Teacher [facility] Emergency Department documented in this encounter Miscellaneous Notes Care Plan - Andrea Alvarado RN - 07/14/2020 12:34 PM CDT Problem: Falls, Risk of Goal: Absence of falls Outcome: Progressing as expected Problem: Infection Risk Goal: Absence of infection Outcome: Progressing as expected Problem: Pain Goal: Control of pain at or below patient's documented comfort goal Outcome: Progressing as expected Goal: Reduction in pain sensation Outcome: Progressing as expected Problem: Discharge Planning Goal: Adequate for discharge Outcome: Progressing as expected Goal: Effective communication Outcome: Progressing as expected Problem: Pain Goal: Control of pain at or below patient's documented comfort goal Outcome: Progressing as expected Goal: Reduction in pain sensation Outcome: Progressing as expected Problem: Discharge Planning Goal: Absence of venous thromboembolism Outcome: Progressing as expected Goal: Adequate for discharge Outcome: Progressing as expected Goal: Effective communication Outcome: Progressing as expected are Plan - Rupal Taylor RN - 07/13/2020 8:38 PM CDT. are Plan - Winston Camacho RN - 07/13/2020 3:08 PM CDT Problem: Falls, Risk of Goal: Absence of falls Outcome: Progressing as expected Problem: Infection Risk Goal: Absence of infection Outcome: Progressing as expected Problem: Pain Goal: Control of pain at or below patient's documented comfort goal Outcome: Progressing as expected Goal: Reduction in pain sensation Outcome: Progressing as expected Problem: Discharge Planning Goal: Adequate for discharge Outcome: Progressing as expected Goal: Effective communication Outcome: Progressing as expected Problem: Pain Goal: Control of pain at or below patient's documented comfort goal Outcome: Progressing as expected Goal: Reduction in pain sensation Outcome: Progressing as expected Problem: Discharge Planning Goal: Absence of venous thromboembolism Outcome: Progressing as expected Goal: Adequate for discharge Outcome: Progressing as expected Goal: Effective communication Outcome: Progressing as expected are Mark - Rupal Taylor RN - 07/12/2020 8:55 PM CDT. are Mark - Winston Cmaacho RN - 07/12/2020 4:25 PM CDT Problem: Falls, Risk of Goal: Absence of falls Outcome: Progressing as expected Problem: Infection Risk Goal: Absence of infection Outcome: Progressing as expected Problem: Pain Goal: Control of pain at or below patient's documented comfort goal Outcome: Progressing as expected Goal: Reduction in pain sensation Outcome: Progressing as expected Problem: Discharge Planning Goal: Adequate for discharge Outcome: Progressing as expected Goal: Effective communication Outcome: Progressing as expected Problem: Pain Goal: Control of pain at or below patient's documented comfort goal Outcome: Progressing as expected Goal: Reduction in pain sensation Outcome: Progressing as expected Problem: Discharge Planning Goal: Absence of venous thromboembolism Outcome: Progressing as expected Goal: Adequate for discharge Outcome: Progressing as expected Goal: Effective communication Outcome: Progressing as expected are Mark - Rupal Taylor RN - 07/11/2020 9:46 PM CDT. are Mark - Abbi Carroll RN - 07/11/2020 2:24 AM CDT Problem: Falls, Risk of Goal: Absence of falls Outcome: Progressing as expected Problem: Infection Risk Goal: Absence of infection Outcome: Progressing as expected Problem: Pain Goal: Control of pain at or below patient's documented comfort goal Outcome: Progressing as expected Goal: Reduction in pain sensation Outcome: Progressing as expected Problem: Discharge Planning Goal: Adequate for discharge Outcome: Progressing as expected Goal: Effective communication Outcome: Progressing as expected are Plan - Gala Canseco RN - 07/10/2020 8:07 PM CDT Problem: Falls, Risk of Goal: Absence of falls Outcome: Progressing as expected Problem: Infection Risk Goal: Absence of infection Outcome: Progressing as expected Problem: Pain Goal: Control of pain at or below patient's documented comfort goal Outcome: Progressing as expected Goal: Reduction in pain sensation Outcome: Progressing as expected Problem: Discharge Planning Goal: Adequate for discharge Outcome: Progressing as expected Goal: Effective communication Outcome: Progressing as expected are Lucina Max RN - 07/09/2020 8:19 PM CDT Problem: Falls, Risk of Goal: Absence of falls Outcome: Progressing as expected Problem: Infection Risk Goal: Absence of infection Outcome: Progressing as expected Problem: Pain Goal: Control of pain at or below patient's documented comfort goal Outcome: Progressing as expected Goal: Reduction in pain sensation Outcome: Progressing as expected Problem: Discharge Planning Goal: Adequate for discharge Outcome: Progressing as expected Goal: Effective communication Outcome: Progressing as expected are Jose M Marroquin RN - 07/09/2020 7:39 AM CDT Problem: Falls, Risk of Goal: Absence of falls Outcome: Progressing as expected are Mark - Laura Portillo RN - 07/08/2020 8:15 AM CDT Problem: Falls, Risk of Goal: Absence of falls Outcome: Progressing as expected Problem: Infection Risk Goal: Absence of infection Outcome: Progressing as expected Problem: Pain Goal: Control of pain at or below patient's documented comfort goal Outcome: Progressing as expected Goal: Reduction in pain sensation Outcome: Progressing as expected Problem: Discharge Planning Goal: Adequate for discharge Outcome: Progressing as expected Goal: Effective communication Outcome: Progressing as expected D Nurse Note - Ronald Yanez RN - 07/07/2020 6:10 PM CDTNurse Report Report given to Lucina CAAL. Chief complaint, assessment findings and orders reviewed. Plan of carediscussed. Ronald Yanez RN D Nurse Note - Ronald Yanez RN - 07/07/2020 5:47 PM CDTPatient family friend Rena was updated with regard to patient disposition, with patient permission. She can be contacted at [phone] D Procedure Note - Saurabh Rosenthal MD - 07/07/2020 5:26 PM CDTAssociated Order(s): Critical CareCritical Care Performed by: Saurabh Rosenthal MD Authorized by: Saurabh Rosenthal MD Critical care provider statement: Critical care time (minutes): 45 Critical care was necessary to treat or prevent imminent or life-threatening deterioration of the following conditions: Cardiac failure Critical care was time spent personally by me on the following activities: Ordering and performing treatments and interventions, ordering and review of laboratory studies, ordering and review of radiographic studies, pulse oximetry, re-evaluation of patient's condition, development of treatment plan with patient or surrogate, discussions with primary provider, discussions with consultants, evaluation of patient's response to treatment and examination of patient D Nurse Note - Ronald Yanez RN - 07/07/2020 4:47 PM CDTContacted lab for doing pro bnp and troponin documented in this encounter Plan of Treatment Date Type Specialty Care Team Description 07/17/2020 Office Visit Cardiology Amanda Quick M D [address] [place] [address] 15 [phone] Name Type Priority Associated Diagnoses Order S chedule BASIC METABOLIC PANEL LAB Routine EVERY MORNING AT 0500 (NA, K, CL, CO2, for 5 Days starting GLUCOSE, BUN, 07/12/2020 unt il CREATININE, CA) 07/16/2020, 3 completed URIC ACID LAB Routine EVERY MORNING A T 0500 for 3 Occurrenc es starting 2019 until 0, 2 completed CBC WITH DIFF LAB Routine EVERY MORNING AT 0400 for 5 Days star ting 07/15/2020 unti l 07/19/2020 BASIC METABOLIC PANEL LAB Routine Stage 3a chronic ki dney Expected: 07/20/2020, (NA, K, CL, CO2, disease Expires: 07/14/2021 GLUCOSE, BUN, Uncontrolled type 2 CREATININE, 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 Persistent atrial fibrillation Acute cystitis without hematuria Health Maintenance Due Date Last Done Comments EYE EXAM 1948 Depression Screening 1950 FOOT EXAM 1956 DTaP,Tdap,and Td Vaccines (1 - 1957 Tdap) Zoster Recombinant Vaccine 1988 (SHINGRIX) (1 of 2) Medicare Wellness Visit 2003 Osteoporosis Screening 2003 PNEUMOCOCCAL VACCINES 65+ (1 of 1 2003 - PPSV23) LDL-C 09/03/2017 09/03/2016, 01/30/2016 INFLUENZA VACCINE (#1) 2020 06/24/2019 HgA1C 01/05/2021 07/07/2020, 09/03/2016, 03/13/2016 URINE MICROALBUMIN 07/11/2021 07/11/2020 CREATININE (SERUM) 07/13/2021 07/13/2020, 07/12/2020, 07/11/2020, Additional history exists documented as of this encounter Procedures Procedure Name Priority Date/Time Associated Diagnosis Comme nts POCT GLUCOSE Routine 07/14/2020 4:23 Results for (AUTOMATED) PM CDT this procedure are in the results section. POCT GLUCOSE Routine 07/14/2020 11:23 Results for (AUTOMATED) AM CDT this procedure are in the results section. N-TERMINAL PRO-BNP Routine 07/14/2020 9:33 Resul ts for AM CDT this procedure are in the results section. BASIC METABOLIC PANEL Routine 07/14/2020 9:33 Re sults for (NA, K, CL, CO2, AM CDT this proced ure GLUCOSE, BUN, are in the CREATININE, CA) results section. URIC ACID Routine 07/14/2020 9:33 Results for AM CDT this procedure are in the results section. POCT GLUCOSE Routine 07/14/2020 7:26 Results for (AUTOMATED) AM CDT this procedure are in the results section. CBC WITH DIFF Routine 07/14/2020 3:02 Results fo r AM CDT this procedure are in the results section. POCT GLUCOSE Routine 07/13/2020 4:40 Results for (AUTOMATED) PM CDT this procedure are in the results section. POCT GLUCOSE Routine 07/13/2020 11:21 Results for (AUTOMATED) AM CDT this procedure are in the results section. POCT GLUCOSE Routine 07/13/2020 7:15 Results for (AUTOMATED) AM CDT this procedure are in the results section. N-TERMINAL PRO-BNP Routine 07/13/2020 4:27 Resul ts for AM CDT this procedure are in the results section. CBC WITH DIFF Routine 07/13/2020 4:27 Results fo r AM CDT this procedure are in the results section. BASIC METABOLIC PANEL Routine 07/13/2020 4:27 Re sults for (NA, K, CL, CO2, AM CDT this proced ure GLUCOSE, BUN, are in the CREATININE, CA) results section. URIC ACID Routine 07/13/2020 4:27 Results for AM CDT this procedure are in the results section. POCT GLUCOSE Routine 07/12/2020 7:09 Results for (AUTOMATED) PM CDT this procedure are in the results section. POCT GLUCOSE Routine 07/12/2020 4:55 Results for (AUTOMATED) PM CDT this procedure are in the results section. XR CHEST 1 VW Routine 07/12/2020 12:05 Congestive heart Result s for PM CDT failure, unspecified this pr ocedure HF chronicity, are in the unspecified heart results failure type section. POCT GLUCOSE Routine 07/12/2020 12:02 Results for (AUTOMATED) PM CDT this procedure are in the results section. US RETROPERITONEAL HEIDI 07/12/2020 9:19 Stage 3a chronic R esults for COMPLETE AM CDT kidney disease this procedur e are in the results section. POCT GLUCOSE Routine 07/12/2020 7:46 Results for (AUTOMATED) AM CDT this procedure are in the results section. SODIUM, URINE RANDOM Routine 07/12/2020 4:44 Res ults for AM CDT this procedure are in the results section. UREA NITROGEN, URINE Routine 07/12/2020 4:44 Res ults for RANDOM AM CDT this procedure are in the results section. CREATININE, URINE Routine 07/12/2020 4:44 Result s for RANDOM AM CDT this procedure are in the results section. URINALYSIS Routine 07/12/2020 4:44 Results for AM CDT this procedure are in the results section. OSMOLALITY URINE Routine 07/12/2020 4:44 Results for AM CDT this procedure are in the results section. N-TERMINAL PRO-BNP Routine 07/12/2020 3:22 Resul ts for AM CDT this procedure are in the results section. CBC WITH DIFF Routine 07/12/2020 3:22 Results fo r AM CDT this procedure are in the results section. ACUTE CARE VENOUS Routine 07/12/2020 3:22 Result s for BLOOD GAS AM CDT this procedure are in the results section. BASIC METABOLIC PANEL Routine 07/12/2020 3:22 Re sults for (NA, K, CL, CO2, AM CDT this proced ure GLUCOSE, BUN, are in the CREATININE, CA) results section. TROPONIN I Routine 07/12/2020 3:22 Results for AM CDT this procedure are in the results section. OSMOLALITY SERUM Routine 07/12/2020 3:22 Results for AM CDT this procedure are in the results section. URIC ACID Routine 07/12/2020 3:22 Results for AM CDT this procedure are in the results section. POCT GLUCOSE Routine 07/11/2020 7:54 Results for (AUTOMATED) PM CDT this procedure are in the results section. POCT GLUCOSE Routine 07/11/2020 4:44 Results for (AUTOMATED) PM CDT this procedure are in the results section. POCT GLUCOSE Routine 07/11/2020 12:04 Results for (AUTOMATED) PM CDT this procedure are in the results section. POCT GLUCOSE Routine 07/11/2020 8:00 Results for (AUTOMATED) AM CDT this procedure are in the results section. UREA NITROGEN, URINE Routine 07/11/2020 3:08 Res ults for RANDOM AM CDT this procedure are in the results section. SODIUM, URINE RANDOM Routine 07/11/2020 3:07 Res ults for AM CDT this procedure are in the results section. CREATININE, URINE Routine 07/11/2020 3:07 Result s for RANDOM AM CDT this procedure are in the results section. N-TERMINAL PRO-BNP Routine 07/11/2020 3:07 Resul ts for AM CDT this procedure are in the results section. URINALYSIS Routine 07/11/2020 3:07 Results for AM CDT this procedure are in the results section. CBC WITH DIFF Routine 07/11/2020 3:07 Results fo r AM CDT this procedure are in the results section. COMP. METABOLIC PANEL Routine 07/11/2020 3:07 Re sults for (89389) AM CDT this procedure are in the results section. MICROALBUMIN URINE Routine 07/11/2020 3:07 Resul ts for AM CDT this procedure are in the results section. OSMOLALITY URINE Routine 07/11/2020 3:07 Results for AM CDT this procedure are in the results section. OSMOLALITY SERUM Routine 07/11/2020 3:07 Results for AM CDT this procedure are in the results section. URIC ACID HEIDI Add-On 07/11/2020 3:07 Results for AM CDT this procedure are in the results section. CREATINE KINASE HEIDI Add-On 07/11/2020 3:07 Results for AM CDT this procedure are in the results section. POCT GLUCOSE Routine 07/10/2020 7:54 Results for (AUTOMATED) PM CDT this procedure are in the results section. POCT GLUCOSE Routine 07/10/2020 4:35 Results for (AUTOMATED) PM CDT this procedure are in the results section. POCT GLUCOSE Routine 07/10/2020 11:40 Results for (AUTOMATED) AM CDT this procedure are in the results section. ECHO ROUTINE W/DOPPLER Routine 07/10/2020 9:03 Congestive hea rt COLOR AM CDT failure, unspecified HF chronicity, unspecified heart failure type POCT GLUCOSE Routine 07/10/2020 7:54 Results for (AUTOMATED) AM CDT this procedure are in the results section. N-TERMINAL PRO-BNP Routine 07/10/2020 5:02 Resul ts for AM CDT this procedure are in the results section. CBC WITH DIFF Routine 07/10/2020 5:02 Results fo r AM CDT this procedure are in the results section. BASIC METABOLIC PANEL Routine 07/10/2020 5:02 Re sults for (NA, K, CL, CO2, AM CDT this proced ure GLUCOSE, BUN, are in the CREATININE, CA) results section. POCT GLUCOSE Routine 07/09/2020 8:02 Results for (AUTOMATED) PM CDT this procedure are in the results section. POCT GLUCOSE Routine 07/09/2020 4:10 Results for (AUTOMATED) PM CDT this procedure are in the results section. POCT GLUCOSE Routine 07/09/2020 11:37 Results for (AUTOMATED) AM CDT this procedure are in the results section. POCT GLUCOSE Routine 07/09/2020 8:14 Results for (AUTOMATED) AM CDT this procedure are in the results section. N-TERMINAL PRO-BNP Routine 07/09/2020 5:03 Resul ts for AM CDT this procedure are in the results section. BASIC METABOLIC PANEL Routine 07/09/2020 5:03 Re sults for (NA, K, CL, CO2, AM CDT this proced ure GLUCOSE, BUN, are in the CREATININE, CA) results section. POCT GLUCOSE Routine 07/08/2020 8:08 Results for (AUTOMATED) PM CDT this procedure are in the results section. POCT GLUCOSE Routine 07/08/2020 4:37 Results for (AUTOMATED) PM CDT this procedure are in the results section. POCT GLUCOSE Routine 07/08/2020 11:15 Results for (AUTOMATED) AM CDT this procedure are in the results section. POCT GLUCOSE Routine 07/08/2020 7:56 Results for (AUTOMATED) AM CDT this procedure are in the results section. TROPONIN I Routine 07/08/2020 6:10 Results for AM CDT this procedure are in the results section. CT ANGIOGRAM LOWER Routine 07/08/2020 5:13 Claudication of jesi th Results for EXTREMITY BILATERAL W AM CDT lower extremities t his procedure CONTRAST are in the results section. CBC WITH DIFF Routine 07/08/2020 12:19 Results fo r AM CDT this procedure are in the results section. BASIC METABOLIC PANEL Routine 07/08/2020 12:19 Re sults for (NA, K, CL, CO2, AM CDT this proced ure GLUCOSE, BUN, are in the CREATININE, CA) results section. TROPONIN I Routine 07/08/2020 12:19 Results for AM CDT this procedure are in the results section. POCT GLUCOSE Routine 07/07/2020 10:12 Results for (AUTOMATED) PM CDT this procedure are in the results section. VITAMIN B1 (THIAMINE), STAT 07/07/2020 5:59 R esults for WHOLE BLOOD PM CDT this procedure are in the results section. VITAMIN D, 25-OH STAT 07/07/2020 5:59 Results for PM CDT this procedure are in the results section. URINE CULTURE STAT 07/07/2020 5:59 Results fo r PM CDT this procedure are in the results section. IRON PANEL STAT 07/07/2020 5:59 Results for PM CDT this procedure are in the results section. FOLATE STAT 07/07/2020 5:59 Results for PM CDT this procedure are in the results section. VITAMIN B12, LEVEL STAT 07/07/2020 5:59 Resul ts for PM CDT this procedure are in the results section. XR CHEST 1 VW STAT 07/07/2020 5:35 Hyperglycemia Results for PM CDT Lactic acidosis this procedu re are in the results section. CRITICAL CARE Routine 07/07/2020 5:26 Results fo r PM CDT this procedure are in the results section. EKG-12 LEAD Routine 07/07/2020 4:59 PM CDT EKG-12 LEAD Routine 07/07/2020 4:53 PM CDT URINALYSIS STAT 07/07/2020 4:31 Hyperglycemia Results fo r PM CDT this procedure are in the results section. BLOOD CULTURE SCREEN STAT 07/07/2020 4:20 Hyperglycemia Re sults for PM CDT this procedure are in the results section. AC PANEL 21 + LACTIC STAT 07/07/2020 4:16 Hyperglycemia Re sults for ACID PM CDT this procedure are in the results section. LAB ONLY COVID STAT 07/07/2020 4:15 Hyperglycemia Results for INTERPRETATION PM CDT this procedur e are in the results section. COVID-19 (ID NOW RAPID STAT 07/07/2020 4:15 Hyperglycemia Results for TESTING) PM CDT this procedure are in the results section. N-TERMINAL PRO-BNP STAT Add-On 07/07/2020 4:15 Hyperglycemi a Results for PM CDT Lactic acidosis this procedu re are in the results section. ACTIVATED PARTIAL STAT 07/07/2020 4:15 Hyperglycemia Resul ts for THRMPLAS MAYRA PM CDT this procedure are in the results section. PROTHROMBIN TIME / INR STAT 07/07/2020 4:15 Hyperglycemia Results for PM CDT this procedure are in the results section. GLYCOSYLATED STAT Add-On 07/07/2020 4:15 Results for HEMOGLOBIN (A1C) PM CDT this proced ure are in the results section. CBC WITH DIFF STAT 07/07/2020 4:15 Hyperglycemia Results f or PM CDT this procedure are in the results section. BASIC METABOLIC PANEL STAT 07/07/2020 4:15 Hyperglycemia R esults for (NA, K, CL, CO2, PM CDT this proced ure GLUCOSE, BUN, are in the CREATININE, CA) results section. HEPATIC FUNCTION PANEL STAT 07/07/2020 4:15 Hyperglycemia Results for (19718) PM CDT this procedure (ALB,T.PRO,BILI are in the T,BU/BC,ALT,AST,ALK results PHOS) section. THYROID STIMULATING STAT Add-On 07/07/2020 4:15 Resu lts for HORMONE PM CDT this procedure are in the results section. TROPONIN I STAT Add-On 07/07/2020 4:15 Hyperglycemia Results for PM CDT Lactic acidosis this procedu re are in the results section. FERRITIN SERUM STAT Add-On 07/07/2020 4:15 Results f or PM CDT this procedure are in the results section. BLOOD CULTURE SCREEN STAT 07/07/2020 4:15 Hyperglycemia Re sults for PM CDT this procedure are in the results section. POCT GLUCOSE Routine 07/07/2020 4:03 Results for (AUTOMATED) PM CDT this procedure are in the results section. documented in this encounter Results POCT GLUCOSE (AUTOMATED) (07/14/2020 4:23 PM CDT) Pathologist Sig [employer] POCT GLU 148 (H) 70 - 110 mg/dL [facility] Specimen Blood Performing Organization Address City/[facility]/Zipcode Phone Number [facility] CLIA: [id number] [place] [address] LABORATORY [address] POCT GLUCOSE (AUTOMATED) (07/14/2020 11:23 AM CDT) Pathologist [facility] [employer] POCT GLU 163 (H) 70 - 110 mg/dL [facility] Specimen Blood Performing Organization Address City/[facility]/Zipcode Phone Number [facility] CLIA: [id number] [place] [address] URIC ACID (07/14/2020 9:33 AM CDT) Pathologist Sig nature URIC ACID 9.3 (H) 2.9 - 6.0 mg/dL [facility] Specimen Blood - ARM, LEFT Performing Organization Address City/State/Zipcode Phone Number [facility] CLIA: [id number] [place] [address] BASIC METABOLIC PANEL (NA, K, CL, CO2, GLUCOSE, BUN, CREATININE, CA) (07/14/2020 9:33 AM CDT) NA 133 (L) 135 - 145 [facility] mmol/L [facility] K 4.4 3.5 - 5.0 [facility] mmol/L [facility] CL 101 98 - 108 mmol/L [facility] CO2 TOTAL 24 23 - 31 mmol/L [facility] AGAP 8 2 - 16 [facility] BUN 33 (H) 7 - 23 mg/dL [facility] GLUCOSE 117 (H) 70 - 110 mg/dL [facility] CREATININE 3.18 (H) 0.50 - 1.04 [facility] mg/dL [facility] CALCIUM 8.9 8.6 - 10.6 [facility] mg/dL [facility] eGFR Calculation 14.0 mL/min/1.73m2 [facility] (Non-[facility] LAB[facility]ATORY [place]) eGFR Calculation 17.0 mL/min/1.73m2 [facility] () [facility] Specimen Blood - ARM, LEFT Narrative Performed At [facility] Glomerular Filtration Rate (GFR) [facility] and Staging of Kidney Disease* + + +- + | GFR (mL/min/1.73 m2) | With Kidney Damage | Without Kidney Damage + + +- + | >90 | Stage one | Normal + + +- + | 60-89 | Stage two | Decreased GFR + + +- + | 30-59 | Stage three | Stage three + + +- + | 15-29 | Stage four | Stage four + + +- + | <15 (or dialysis) | Stage five | Stage five + + +- + *Each stage assumes the associated GFR level has been in effect for at least three months. Stages 1 to 5, with or without kidney disease, indicate chronic kidney disease. Notes: Determination of stages one and two (with eGFR >59mL/min/1.73 m2) requires estimation of kidney damage for at least three months as defined by structural or functional abnormalities of the kidney, manifested by either: Pathological abnormalities or Markers of kidney damage (including abnormalities in the composition of the blood or urine or abnormalities in imaging tests). Performing Organization Address [facility] Phone Number [facility] CLIA: [id number] [place] [address] [place] [address] N-TERMINAL PRO-BNP (07/14/2020 9:33 AM CDT) [facility] NT-proBNP 21,500 (H) <=450 pg/mL [facility] Specimen Blood - ARM, LEFT Narrative Performed At [employer] has been reported to cause a negative [facility] bias, interpret results relative to patient's use of biotin. Performing Organization Address [facility] Phone Number [facility] CLIA: [id number] [place] [address] [place] [address] POCT GLUCOSE (AUTOMATED) (07/14/2020 7:26 AM CDT) [facility] POCT GLU 102 70 - 110 mg/dL [facility] Specimen Blood Performing Organization Address [facility] Phone Number [facility] CLIA: [id number] [place] [address] [place] [address] CBC WITH DIFF (07/14/2020 3:02 AM CDT) [facility] WBC 6.66 4.30 - 11.10 [facility] 10*3/L [facility] RBC 4.24 3.93 - 5.25 [facility] 10*6/L [facility] HGB 11.2 (L) 11.6 - 15.0 [facility] g/dL [facility] HCT 33.0 (L) 35.7 - 45.2 % [facility] MCV 77.8 (L) 80.6 - 95.5 fL [facility] MCH 26.4 25.9 - 32.8 pg [facility] MCHC 33.9 31.6 - 35.1 [facility] g/dL [facility] RDW-SD 49.3 39.0 - 49.9 fL [facility] RDW-CV 17.8 (H) 12.0 - 15.5 % [facility] PLT 297 166 - 358 [facility] 10*3/L HOSPITAL LABORATORY MPV 11.5 9.5 - 12.9 fL [facility] NRBC/100 WBC 0.0 0.0 - 10.0 /100 [facility] WBCs [facility] NRBC x10^3 <0.01 10*3/L [facility] GRAN MAT (NEUT) % 69.7 % [facility] IMM GRAN % 0.50 % [facility] LYMPH % 11.3 % [facility] MONO % 14.1 % [facility] EOS % 3.3 % [facility] BASO % 1.1 % [facility] GRAN MAT x10^3(ANC) 4.65 1.88 - 7.09 [facility] 10*3/uL HOSPITAL LABORATORY IMM GRAN x10^3 0.03 0.00 - 0.06 [facility] 10*3/uL HOSPITAL LAB[facility]ORY LYMPH x10^3 0.75 (L) 1.32 - 3.29 [facility] 10*3/uL HOSPITAL LAB[facility]ORY MONO x10^3 0.94 (H) 0.33 - 0.92 [facility] 10*3/uL [facility] EOS x10^3 0.22 0.03 - 0.39 [facility] 10*3/uL HOSPITAL LAB[facility] BASO x10^3 0.07 0.01 - 0.07 [facility] 10*3/uL [facility] Specimen Blood - ARM, LEFT Performing Organization Address [facility]/Zipcode Phone Number [facility] CLIA: [id number] [place] [address] POCT GLUCOSE (AUTOMATED) (07/13/2020 4:40 PM CDT) [facility] POCT GLU 123 (H) 70 - 110 mg/dL [facility] Specimen Blood Performing Organization Address City/[facility] Phone Number [facility] CLIA: [id number] [place] [address] POCT GLUCOSE (AUTOMATED) (07/13/2020 11:21 AM CDT) Pathologist Sig nature POCT GLU 193 (H) 70 - 110 mg/dL [facility] Specimen Blood Performing Organization Address [facility] Phone Number [facility] CLIA: [id number] [place] [address] POCT GLUCOSE (AUTOMATED) (07/13/2020 7:15 AM CDT) Pathologist Sig [facility] POCT GLU 121 (H) 70 - 110 mg/dL [facility] Specimen Blood Performing Organization Address [facility] Phone Number [facility] CLIA: [id number] [place] [address] URIC ACID (07/13/2020 4:27 AM CDT) Pathologist Sig [facility] URIC ACID 9.7 (H) 2.9 - 6.0 mg/dL [facility] Specimen Blood - ARM, LEFT Performing Organization Address [facility] Phone Number [facility] CLIA: [id number] [place] [address] CBC WITH DIFF (07/13/2020 4:27 AM CDT) Pathologist Sig [facility] WBC 7.40 4.30 - 11.10 [facility] 10*3/L [facility] RBC 4.34 3.93 - 5.25 [facility] 10*6/L [facility] HGB 11.3 (L) 11.6 - 15.0 [facility] g/dL [facility] HCT 34.0 (L) 35.7 - 45.2 % [facility] MCV 78.3 (L) 80.6 - 95.5 fL [facility] MCH 26.0 25.9 - 32.8 pg [facility] MCHC 33.2 31.6 - 35.1 [facility] g/dL [facility] RDW-SD 50.2 (H) 39.0 - 49.9 fL [facility] RDW-CV 18.1 (H) 12.0 - 15.5 % [facility] PLT 228 166 - 358 [facility] 10*3/L [facility] MPV 11.5 9.5 - 12.9 fL [facility] NRBC/100 WBC 0.0 0.0 - 10.0 /100 [facility] WBCs [facility] NRBC x10^3 <0.01 10*3/L [facility] GRAN MAT (NEUT) % 73.0 % [facility] IMM GRAN % 0.30 % [facility] LYMPH % 9.5 % [facility] MONO % 13.9 % [facility] EOS % 2.4 % [facility] BASO % 0.9 % [facility] GRAN MAT x10^3(ANC) 5.40 1.88 - 7.09 [facility] 10*3/uL [facility] IMM GRAN x10^3 <0.03 0.00 - 0.06 [facility] 10*3/uL [facility] LYMPH x10^3 0.70 (L) 1.32 - 3.29 [facility] 10*3/uL [facility] MONO x10^3 1.03 (H) 0.33 - 0.92 [facility] 10*3/uL [facility] EOS x10^3 0.18 0.03 - 0.39 [facility] 10*3/uL [facility] BASO x10^3 0.07 0.01 - 0.[address]/[facility] LABORATORY Specimen Blood - ARM, LEFT Performing Organization Address City/State/Zipcode Phone Number [facility] CLIA: [id number] [place] [address] BASIC METABOLIC PANEL (NA, K, CL, CO2, GLUCOSE, BUN, CREATININE, CA) (07/13/2020 4:27 AM CDT) NA 130 (L) 135 - 145 [facility] mmol/L [facility] K 4.5 3.5 - 5.0 [facility] mmol/L [facility] CL 99 98 - 108 mmol/L [facility] CO2 TOTAL 22 (L) 23 - 31 mmol/L [facility] AGAP 9 2 - 16 [facility] BUN 37 (H) 7 - 23 mg/dL [facility] GLUCOSE 126 (H) 70 - 110 mg/dL [facility] CREATININE 3.57 (H) 0.50 - 1.04 [facility] mg/dL [facility] CALCIUM 8.6 8.6 - 10.6 [facility] mg/dL [facility] eGFR Calculation 12.3 mL/min/1.73m2 [facility] (Non[facility] LABORATORY [place]) eGFR Calculation 14.9 mL/min/1.73m2 [facility] () [facility] Specimen Blood - ARM, LEFT Narrative Performed At [facility] Glomerular Filtration Rate (GFR) [facility] and Staging of Kidney Disease* + + +- + | GFR (mL/min/1.73 m2) | With Kidney Damage | Without Kidney Damage + + +- + | >90 | Stage one | Normal + + +- + | 60-89 | Stage two | Decreased GFR + + +- + | 30-59 | Stage three | Stage three + + +- + | 15-29 | Stage four | Stage four + + +- + | <15 (or dialysis) | Stage five | Stage five + + +- + *Each stage assumes the associated GFR level has been in effect for at least three months. Stages 1 to 5, with or without kidney disease, indicate chronic kidney disease. Notes: Determination of stages one and two (with eGFR >59mL/min/1.73 m2) requires estimation of kidney damage for at least three months as defined by structural or functional abnormalities of the kidney, manifested by either: Pathological abnormalities or Markers of kidney damage (including abnormalities in the composition of the blood or urine or abnormalities in imaging tests). Performing Organization Address City/State/Zipcode Phone Number [facility] CLIA: [id number] [place] [address] N-TERMINAL PRO-BNP (07/13/2020 4:27 AM CDT) Pathologist Sig nature NT-proBNP 21,700 (H) <=450 pg/mL [facility] Specimen Blood - ARM, LEFT Narrative Performed At [facility] has been reported to cause a negative [facility] bias, interpret results relative to patient's use of biotin. Performing Organization Address City/[facility] Phone Number [facility] CLIA: [id number] [place] [address] POCT GLUCOSE (AUTOMATED) (07/12/2020 7:09 PM CDT) Pathologist Sig nature POCT GLU 147 (H) 70 - 110 mg/dL [facility] Specimen Blood Performing Organization Address [facility] Phone Number [facility] CLIA: [id number] [place] [address] POCT GLUCOSE (AUTOMATED) (07/12/2020 4:55 PM CDT) Pathologist Sig nature POCT GLU 159 (H) 70 - 110 mg/dL [facility] Specimen Blood Performing Organization Address [facility] Phone Number [facility] CLIA: [id number] [place] [address] [place] [address] XR CHEST 1 VW (07/12/2020 12:05 PM CDT) Specimen Impressions Performed At Findings and Impression: No significant change in ap pearance of lungs PACS/VR/DOSE or cardiomediastinal silhouette. Persistent cardiomegaly with single AICD electrodes projecting over the left ches t. No raina pulmonary edema. Sternotomy no pleural effusion or pneumothorax. Change s. Prominent aortic arch and descending thoracic aortic calc ifications. Narrative Performed At PORTABLE CHEST RADIOGRAPH PACS/VR/DOSE History: chf Comparison: 07/07/2020 TECHNIQUE: AP view of the chest. Procedure Note [facility], Radiant Results Inft User - 2019 1:28 PM CDT PORTABLE CHEST RADIOGRAPH History: chf Comparison: 07/07/2020 TECHNIQUE: AP view of the chest. IMPRESSION Findings and Impression: No significant change in appearance of lungs or cardiomediastinal silhouette. Persistent cardiomegaly with single AICD electrodes projecting over the left ches t. No raina pulmonary edema. Sternotomy no pleural effusion or pneumo thorax. Changes. Prominent aortic arch and descending thoracic aortic calc ifications. Performing Organization Address City/[facility] Phone Number PACS/VR/DOSE POCT GLUCOSE (AUTOMATED) (07/12/2020 12:02 PM CDT) Pathologist Sig nature POCT GLU 171 (H) 70 - 110 mg/dL [facility] Specimen Blood Performing Organization Address City/State/Zipcode Phone Number [facility] CLIA: [id number] [place] [address] US RETROPERITONEAL COMPLETE (07/12/2020 9:19 AM CDT) Specimen Impressions Performed At No significant appreciable renal atrophy or cortical thinning. PACS/VR/DOSE Pre and postvoid residuals as above. Bilateral renal cysts and suspected sub- 5 mm nonobstructive left nephrolithiasis. Septated right upper renal pole cyst without definite vascular flow within the septation as above. Small volume ascites layering in the dep endent pelvis. Partially visualized trace right pleural effusion. Narrative Performed At ULTRASOUND RENAL PACS/VR/DOSE INDICATION: PIOTR. Eval postvoid residuals . COMPARISON: None. FINDINGS: Partially visualized trace right pleural effusion. Right kidney measures 9.2 x 4.5 x 3.7 cm . Right inferior renal pole contains a 1.1 cm cyst with thin septation but no appr eciable vascular flow on Doppler (velocity scale set relativel y high at 18.5 cm/s). There is normal renal cortical echogenicity and corticomedullar y differentiation. No hydronephrosis or renal calculi. There is qualitativel y normal perfusion on color doppler interrogation. Left kidney measures 10.7 x 5.0 x 4.3 cm. . Left lower renal pole contains a sub-5 mm nonshadowing echogenic focus which probably represents a small nonobstructive stone versus parenchymal calcification. Left upper renal pole contains a 1.0 cm simple cyst. Ther e is normal renal cortical echogenicity and corticomedullary differentiation. No hydronephrosis. There is qualitatively normal perfusion on col or doppler interrogation. Small amount of free fluid within the dependent pelvis . Pre and post void residuals measure 30.1 mL and 15.9 mm, r espectively. Procedure Note [facility], Radiant Results Inft User - 2019 9:32 AM CDT ULTRASOUND RENAL INDICATION: PIOTR. Eval postvoid residuals . COMPARISON: None. FINDINGS: Partially visualized trace right pleural effusion. Right kidney measures 9.2 x 4.5 x 3.7 cm . Right inferior renal pole contains a 1.1 cm cyst with thin septati on but no appreciable vascular flow on Doppler (velocity scale set relativel y high at 18.5 cm/s). There is normal renal cortical echogenicity and c orticomedullary differentiation. No hydronephrosis or renal calculi. There i s qualitatively normal perfusion on color doppler interrogation. Left kidney measures 10.7 x 5.0 x 4.3 cm . . Left lower renal pole contains a sub-5 mm nonshadowing echogenic focus which probably represents a small nonobstructive stone versus parenchymal calcification. Left upper renal pole contains a 1.0 cm simple cyst. Ther e is normal renal cortical echogenicity and corticomedullary differ entiation. No hydronephrosis. There is qualitatively normal perfusion on col or doppler interrogation. Small amount of free fluid within the de pendent pelvis. Pre and post void residuals measure 30.1 mL and 15.9 mm, r espectively. IMPRESSION No significant appreciable renal atrophy or cortical thinning. Pre and postvoid residuals as above. Bilateral renal cysts and suspected sub- 5 mm nonobstructive left nephrolithiasis. Septated right upper renal pole cyst wit hout definite vascular flow within the septation as above. Small volume ascites layering in the dep endent pelvis. Partially visualized trace right pleural effusion. Performing Organization Address City/[facility]/Zipcode Phone Number PACS/VR/DOSE POCT GLUCOSE (AUTOMATED) (07/12/2020 7:46 AM CDT) Pathologist Sig nature POCT GLU 124 (H) 70 - 110 mg/dL [facility] Specimen Blood Performing Organization Address City/[facility]/Zipcode Phone Number [facility] CLIA: [id number] [place] [address] UREA NITROGEN, URINE RANDOM (07/12/2020 4:44 AM CDT) Pathologist Sig nature UREA N UR 338 mg/dL [facility] Specimen Urine - URINE, CATHETERIZED Performing Organization Address [facility] Phone Number [facility] CLIA: [id number] [place], [place] [address] [address] [place] [address] SODIUM, URINE RANDOM (07/12/2020 4:44 AM CDT) Pathologist Sig nature NA URINE 23 mmol/L [facility] Specimen Urine - URINE, CATHETERIZED Performing Organization Address [facility] Phone Number [facility] CLIA: [id number] [place] [address] CREATININE, URINE RANDOM (07/12/2020 4:44 AM CDT) Pathologist Sig nature CREAT U 70.5 mg/dL [facility] Specimen Urine - URINE, CATHETERIZED Performing Organization Address [facility] Phone Number [facility] CLIA: [id number] [place] [address] URINALYSIS (07/12/2020 4:44 AM CDT) Pathologist Sig nature APPEARANCE Hazy (A) Clear [facility] COLOR Yellow Yellow [facility] PH 5.0 4.8 - 8.0 [facility] SP GRAVITY 1.015 1.003 - 1.030 [facility] GLU U QUAL Normal Normal [facility] BLOOD 1+ (A) Negative [facility] KETONES Negative Negative [facility] PROTEIN 30 mg/dL (A) Negative [facility] UROBILIN Normal Normal [facility] BILIRUBIN Negative Negative [facility] NITRITE Negative Negative [facility] LEUK KARSTEN 25/uL (A) Negative [facility] RBC/HPF 2 0 - 3 HPF [facility] WBC/HPF 20 (H) 0 - 5 HPF [facility] BACTERIA Moderate (A) Negative [facility] SQ EPITH 1 HPF [facility] HYAL CAST 6 (H) <=2 LPF [facility] TRANS EPI 1 <=1 HPF [facility] GRAN CASTS 20 (H) <=1 LPF [facility] Specimen Urine - URINE, CLEAN CATCH Performing Organization Address [facility] Phone Number [facility] CLIA: [id number] [place] [address] OSMOLALITY URINE (07/12/2020 4:44 AM CDT) Pathologist Sig [facility] OSMO U 275 50-1,100 mOsm/kg [facility] Specimen Urine - URINE, CLEAN CATCH Performing Organization Address [facility] Phone Number [facility] CLIA: [id number] [place] [address] [place] [address] URIC ACID (07/12/2020 3:22 AM CDT) Pathologist Sig [facility] URIC ACID 10.2 (H) 2.9 - 6.0 mg/dL [facility] Specimen Blood - ARM, LEFT Performing Organization Address [facility] Phone Number [facility] CLIA: [id number] [place] [address] ACUTE CARE VENOUS BLOOD GAS (07/12/2020 3:22 AM CDT) Pathologist Sig [facility] PH 7.34 7.32 - 7.42 [facility] PCO2 GER[place] 37 (L) 41 - 51 mmHg [facility] PO2 GER[place] 55 (HH) 25 - 40 mmHg [facility] HCO3 [place] 19 (L) 24 - 28 mEq/L [facility] AC VBE(BEAKER) -5.9 mEq/L [facility] Specimen Blood - ARM, LEFT Performing Organization Address [facility] Phone Number [facility] CLIA: [id number] [place] [address] CBC WITH DIFF (07/12/2020 3:22 AM CDT) Pathologist Sig [facility] WBC 8.84 4.30 - 11.10 [facility] 10*3/L [facility] RBC 4.22 3.93 - 5.25 [facility] 10*6/L [facility] HGB 10.9 (L) 11.6 - 15.0 [facility] g/dL [facility] HCT 33.2 (L) 35.7 - 45.2 % [facility] MCV 78.7 (L) 80.6 - 95.5 fL [facility] MCH 25.8 (L) 25.9 - 32.8 pg [facility] MCHC 32.8 31.6 - 35.1 [facility] g/dL [facility] RDW-SD 49.8 39.0 - 49.9 fL [facility] RDW-CV 17.5 (H) 12.0 - 15.5 % [facility] PLT 213 166 - 358 [facility] 10*3/L [facility] MPV 11.9 9.5 - 12.9 fL [facility] NRBC/100 WBC 0.0 0.0 - 10.0 /100 [facility] WBCs [facility] NRBC x10^3 <0.01 10*3/L [facility] GRAN MAT (NEUT) % 80.0 % [facility] IMM GRAN % 0.50 % [facility] LYMPH % 5.5 % [facility] MONO % 11.5 % [facility] EOS % 1.9 % [facility] BASO % 0.6 % [facility] GRAN MAT x10^3(ANC) 7.07 1.88 - 7.09 [facility] 10*3/uL [facility] IMM GRAN x10^3 0.04 0.00 - 0.06 [facility] 10*3/uL [facility] LYMPH x10^3 0.49 (L) 1.32 - 3.29 [facility] 10*3/uL [facility] MONO x10^3 1.02 (H) 0.33 - 0.92 [facility] 10*3/uL [facility] EOS x10^3 0.17 0.03 - 0.39 [facility] 10*3/uL [facility] BASO x10^3 0.05 0.01 - 0.07 [facility] 10*3/uL [facility] Specimen Blood - ARM, LEFT Performing Organization Address City/State/Zipcode Phone Number [facility] CLIA: [id number] [place] [address] BASIC METABOLIC PANEL (NA, K, CL, CO2, GLUCOSE, BUN, CREATININE, CA) (07/12/2020 3:22 AM CDT) NA 129 (L) 135 - 145 [facility] mmol/L [facility] K 5.0 3.5 - 5.0 [facility] mmol/L [facility] CL 98 98 - 108 mmol/L [facility] CO2 TOTAL 20 (L) 23 - 31 mmol/L [facility] AGAP 11 2 - 16 [facility] BUN 38 (H) 7 - 23 mg/dL [facility] GLUCOSE 133 (H) 70 - 110 mg/dL [facility] CREATININE 3.76 (H) 0.50 - 1.04 [facility] mg/dL [facility] CALCIUM 8.4 (L) 8.6 - 10.6 [facility] mg/dL [facility] eGFR Calculation 11.5 mL/min/1.73m2 [facility] (Non[facility] LAB[facility]ATORY [place]) eGFR Calculation 14.0 mL/min/1.73m2 [facility] () [facility] Specimen Blood - ARM, LEFT Narrative Performed At [facility] of Glomerular Filtration Rate (GFR) [facility] and Staging of Kidney Disease* + + +- + | GFR (mL/min/1.73 m2) | With Kidney Damage | Without Kidney Damage + + +- + | >90 | Stage one | Normal + + +- + | 60-89 | Stage two | Decreased GFR + + +- + | 30-59 | Stage three | Stage three + + +- + | 15-29 | Stage four | Stage four + + +- + | <15 (or dialysis) | Stage five | Stage five + + +- + *Each stage assumes the associated GFR level has been in effect for at least three months. Stages 1 to 5, with or without kidney disease, indicate chronic kidney disease. Notes: Determination of stages one and two (with eGFR >59mL/min/1.73 m2) requires estimation of kidney damage for at least three months as defined by structural or functional abnormalities of the kidney, manifested by either: Pathological abnormalities or Markers of kidney damage (including abnormalities in the composition of the blood or urine or abnormalities in imaging tests). Performing Organization Address City/State/Zipcode Phone Number [facility] CLIA: [id number] [place] [address] N-TERMINAL PRO-BNP (07/12/2020 3:22 AM CDT) [facility] Sig nature NT-proBNP 19,400 (H) <=450 pg/mL [facility] Specimen Blood - ARM, LEFT Narrative Performed At Biotin has been reported to cause a negative [facility] bias, interpret results relative to patient's use of biotin. Performing Organization Address [facility] Phone Number [facility] CLIA: [id number] [place] [address] TROPONIN I (07/12/2020 3:22 AM CDT) Pathologist Sig nature TROPONIN I 0.089 (H) <=0.034 ng/mL [facility] Specimen Blood - ARM, LEFT Narrative Performed At Equal or Less than 0.034 ng/ml---Normal [facility] Note: Cardiac troponin begins to rise 3-4 hours after the onset of ischemia. Repeat in 4-6 hours if the sample was drawn within 3-4 hours of the onset of the symptom and found normal. Between 0.035 and 0.120 ng/mL--- Borderline. Questionable myocardial injury or necros is Note: Serial measurement may be necessary to confirm or exclude the diagnosis of myocardial injury or necrosis; Clinical correlation (symptoms, EKGs, imaging studies, and others) required; Repeat in 4-6 hours if clinically indicated. Equal or Higher than 0.121 ng/mL---Abnormal. Myocardial Injury or Necrosis Likely Biotin has been reported to cause a negative bias, interpret results relative to patient's use of biotin. Performing Organization Address [facility] Phone Number [facility] CLIA: [id number] [place] [address] OSMOLALITY SERUM (07/12/2020 3:22 AM CDT) Pathologist Sig [employer] OSMOLALITY 292 278 - 305 mOsm/kg [facility] S Specimen Blood - ARM, LEFT Performing Organization Address [facility] Phone Number [facility] CLIA: [id number] [place] [address] [place] [address] POCT GLUCOSE (AUTOMATED) (07/11/2020 7:54 PM CDT) Pathologist Sig nature POCT GLU 159 (H) 70 - 110 mg/dL [facility] Specimen Blood Performing Organization Address [facility]/Zipcode Phone Number [facility] CLIA: [id number] [place] [address] POCT GLUCOSE (AUTOMATED) (07/11/2020 4:44 PM CDT) Pathologist Sig nature POCT GLU 160 (H) 70 - 110 mg/dL [facility] Specimen Blood Performing Organization Address [facility] Phone Number [facility] CLIA: [id number] [place] [address] POCT GLUCOSE (AUTOMATED) (07/11/2020 12:04 PM CDT) Pathologist Sig nature POCT GLU 159 (H) 70 - 110 mg/dL [facility] Specimen Blood Performing Organization Address [facility] Phone Number [facility] CLIA: [id number] [place] [address] POCT GLUCOSE (AUTOMATED) (07/11/2020 8:00 AM CDT) Pathologist Sig nature POCT GLU 101 70 - 110 mg/dL [facility] Specimen Blood Performing Organization Address [facility] Phone Number [facility] CLIA: [id number] [place] [address] UREA NITROGEN, URINE RANDOM (07/11/2020 3:08 AM CDT) Pathologist Sig nature UREA N UR 310 mg/dL [facility] Specimen Urine - URINE, CATHETERIZED Performing Organization Address City/[facility] Phone Number [facility] CLIA: [id number] [place] [address] [place] [address] CREATINE KINASE (07/11/2020 3:07 AM CDT) Pathologist Sig nature CK 40 33 - 194 U/L [facility] Specimen Blood - LINE, VENOUS Performing Organization Address [facility]/Zipcode Phone Number [facility] CLIA: [id number] [place] [address] URIC ACID (07/11/2020 3:07 AM CDT) Pathologist Sig nature URIC ACID 10.1 (H) 2.9 - 6.0 mg/dL [facility] Specimen Blood - LINE, VENOUS Performing Organization Address City/[facility] Phone Number [facility] CLIA: [id number] [place] [address] N-TERMINAL PRO-BNP (07/11/2020 3:07 AM CDT) Pathologist Sig nature NT-proBNP 19,300 (H) <=450 pg/mL [facility] Specimen Blood - LINE, VENOUS Narrative Performed At Biotin has been reported to cause a negative [facility] bias, interpret results relative to patient's use of biotin. Performing Organization Address City/[facility] Phone Number [facility] CLIA: [id number] [place] [address] LABORATORY [address] [facility] CBC WITH DIFF (07/11/2020 3:07 AM CDT) Pathologist Sig nature WBC 8.54 4.30 - 11.10 [facility] 10*3/L [facility] RBC 4.27 3.93 - 5.25 [facility] 10*6/L [facility] HGB 11.1 (L) 11.6 - 15.0 [facility] g/dL [facility] HCT 33.8 (L) 35.7 - 45.2 % [facility] MCV 79.2 (L) 80.6 - 95.5 fL [facility] MCH 26.0 25.9 - 32.8 pg [facility] MCHC 32.8 31.6 - 35.1 [facility] g/dL [facility] RDW-SD 50.4 (H) 39.0 - 49.9 fL [facility] RDW-CV 17.5 (H) 12.0 - 15.5 % [facility] PLT 201 166 - 358 [facility] 10*3/L [facility] MPV 11.9 9.5 - 12.9 fL [facility] NRBC/100 WBC 0.0 0.0 - 10.0 /100 [facility] WBCs [facility] NRBC x10^3 <0.01 10*3/L [facility] GRAN MAT (NEUT) % 77.5 % [facility] IMM GRAN % 0.20 % [facility] LYMPH % 8.2 % [facility] MONO % 10.8 % [facility] EOS % 2.5 % [facility] BASO % 0.8 % [facility] GRAN MAT x10^3(ANC) 6.62 1.88 - 7.09 [facility] 10*3/uL HOSPITAL LABORATORY IMM GRAN x10^3 <0.03 0.00 - 0.06 [facility] 10*3/uL HOSPITAL LABORATORY LYMPH x10^3 0.70 (L) 1.32 - 3.29 [facility] 10*3/uL HOSPITAL LABORATORY MONO x10^3 0.92 0.33 - 0.92 [facility] 10*3/uL HOSPITAL LABORATORY EOS x10^3 0.21 0.03 - 0.39 [facility] 10*3/uL HOSPITAL LABORATORY BASO x10^3 0.07 0.01 - 0.07 [facility] 10*3/uL HOSPITAL LABORATORY Specimen Blood - LINE, VENOUS Performing Organization Address City/[facility]/Zipcode Phone Number [facility] CLIA: [id number] [place] [address] [facility] [address] OSMOLALITY URINE (07/11/2020 3:07 AM CDT) Pathologist Sig nature OSMO U 304 50-1,100 mOsm/kg [facility] Specimen Urine - URINE, CATHETERIZED Performing Organization Address City/[facility] Phone Number [facility] CLIA: [id number] [place] [address] [place] [address] OSMOLALITY SERUM (07/11/2020 3:07 AM CDT) Pathologist Sig nature OSMOLALITY 286 278 - 305 mOsm/kg [facility]ICE S Specimen Blood - LINE, VENOUS Performing Organization Address [facility] Phone Number [facility] CLIA: [id number] [place], [place] [address] [address] [facility] MICROALBUMIN URINE (07/11/2020 3:07 AM CDT) Pathologist Sig nature CREAT U 74.1 mg/dL [facility] MICROALB U 182 (H) 0 - 45 ug/mL [facility] MICROAL/CR 246 (H) 0 - 30 mg/g of [facility] creatinine SERVICES Specimen Urine - URINE, CATHETERIZED Narrative Performed At Normal: <30 mg/g creatinine [facility] Microalbuminuria: 30 - 299 mg/g creatini ne Clinical albuminuria: > 300 mg/g creatinine Performing Organization Address [facility] Phone Number [facility] CLIA: [id number] [place] [address] [place] [address] SODIUM, URINE RANDOM (07/11/2020 3:07 AM CDT) Pathologist Sig nature NA URINE 34 mmol/L [facility] Specimen Urine - URINE, CATHETERIZED Performing Organization Address [facility] Phone Number [facility] CLIA: [id number] [place] [address] CREATININE, URINE RANDOM (07/11/2020 3:07 AM CDT) Pathologist Sig nature CREAT U 74.3 mg/dL [facility] Specimen Urine - URINE, CATHETERIZED Performing Organization Address [facility] [facility] Phone Number [facility] CLIA: [id number] [place] [address] URINALYSIS (07/11/2020 3:07 AM CDT) Pathologist Sig nature APPEARANCE Hazy (A) Clear [facility] COLOR Yellow Yellow [facility] PH 5.0 4.8 - 8.0 [facility] SP GRAVITY 1.018 1.003 - 1.030 [facility] GLU U QUAL Normal Normal [facility] BLOOD 1+ (A) Negative [facility] KETONES Negative Negative [facility] PROTEIN 30 mg/dL (A) Negative [facility] UROBILIN Normal Normal [facility] BILIRUBIN Negative Negative [facility] NITRITE Negative Negative [facility] LEUK KARSTEN 25/uL (A) Negative [facility] RBC/HPF 3 0 - 3 HPF [facility] WBC/HPF 22 (H) 0 - 5 HPF [facility] BACTERIA Many (A) Negative [facility] WBC CLUMPS <1 <=1 HPF [facility] GRAN CASTS 35 (H) <=1 LPF [facility] Specimen Urine - URINE, CATHETERIZED Performing Organization Address City/State/Zipcode Phone Number [facility] CLIA: [id number] [place] [address] COMP. METABOLIC PANEL (93011) (07/11/2020 3:07 AM CDT) NA 130 (L) 135 - 145 [facility] mmol/L [facility] K 4.7 3.5 - 5.0 [facility] mmol/L [facility] CL 96 (L) 98 - 108 mmol/L [facility] CO2 TOTAL 21 (L) 23 - 31 mmol/L [facility] AGAP 13 2 - 16 [facility] BUN 35 (H) 7 - 23 mg/dL [facility] GLUCOSE 114 (H) 70 - 110 mg/dL [facility] CREATININE 3.22 (H) 0.50 - 1.04 [facility] mg/dL [facility] TOTAL BILI 0.7 0.1 - 1.1 mg/dL [facility] CALCIUM 8.4 (L) 8.6 - 10.6 [facility] mg/dL [facility] T PROTEIN 5.5 (L) 6.3 - 8.2 g/dL [facility] ALBUMIN 2.8 (L) 3.5 - 5.0 g/dL [facility] LAB[facility] ALK PHOS 93 34 - 122 U/L [facility] ALTv 11 5 - 35 U/L [facility] AST(SGOT) 27 13 - 40 U/L [facility] eGFR Calculation 13.8 mL/min/1.73m2 [facility] (Non[facility] LABORATORY [place]) eGFR Calculation 16.7 mL/min/1.73m2 [facility] () [facility] Specimen Blood - LINE, VENOUS Narrative Performed At [facility] Glomerular Fil[facility] ([facility] and Staging of Kidney Disease* + + +- + | GFR (mL/min/1.73 m2) | With Kidney Damage | Without Kidney Damage + + +- + | >90 | Stage one | Normal + + +- + | 60-89 | Stage two | Decreased GFR + + +- + | 30-59 | Stage three | Stage three + + +- + | 15-29 | Stage four | Stage four + + +- + | <15 (or dialysis) | Stage five | Stage five + + +- + *Each stage assumes the associated GFR level has been in effect for at least three months. Stages 1 to 5, with or without kidney disease, indicate chronic kidney disease. Notes: Determination of stages one and two (with eGFR >59mL/min/1.73 m2) requires estimation of kidney damage for at least three months as defined by structural or functional abnormalities of the kidney, manifested by either: Pathological abnormalities or Markers of kidney damage (including abnormalities in the composition of the blood or urine or abnormalities in imaging tests). Performing Organization Address [facility] Phone Number [facility] CLIA: [id number] [place] [address] [place] [address] POCT GLUCOSE (AUTOMATED) (07/10/2020 7:54 PM CDT) Pathologist Sig nature POCT GLU 131 (H) 70 - 110 mg/dL [facility] Specimen Blood Performing Organization Address [facility] Phone Number [facility] CLIA: [id number] [place], [place] [address] [place] [address] POCT GLUCOSE (AUTOMATED) (07/10/2020 4:35 PM CDT) Pathologist Sig nature POCT GLU 131 (H) 70 - 110 mg/dL [facility] LABORATORY Specimen Blood Performing Organization Address [facility] Phone Number [facility] CLIA: [id number] [place], [place] [address] LABORATORY [address] [place] [address] Drive POCT GLUCOSE (AUTOMATED) (07/10/2020 11:40 AM CDT) Pathologist Sig nature POCT GLU 132 (H) 70 - 110 mg/dL [facility] LABOR[facility] Specimen Blood Performing Organization Address [facility] Phone Number [facility] CLIA: [id number] [place] [address] [address] POCT GLUCOSE (AUTOMATED) (07/10/2020 7:54 AM CDT) Pathologist Sig [facility] POCT GLU 95 70 - 110 mg/dL [facility] LABORATORY Specimen Blood Performing Organization Address [facility] Phone Number [facility] CLIA: [id number] [place] [address] [address] N-TERMINAL PRO-BNP (07/10/2020 5:02 AM CDT) Pathologist Sig [facility] NT-proBNP 19,400 (H) <=450 pg/mL [facility] LABORAT[facility] Specimen Blood - ARM, LEFT Narrative Performed At [facility] has been reported to cause a negative [facility] bias, interpret results relative to patient's use of biotin. Performing Organization Address [facility] Phone Number [facility] CLIA: [id number] [place] [address] LAB[address] [facility] BASIC METABOLIC PANEL (NA, K, CL, CO2, GLUCOSE, BUN, CREATININE, CA) (07/10/2020 5:02 AM CDT) NA 132 (L) 135 - 145 [facility] mmol/L [facility] K 4.5 3.5 - 5.0 [facility] mmol/L [facility] CL 98 98 - 108 mmol/L [facility] CO2 TOTAL 23 23 - 31 mmol/L [facility] AGAP 11 2 - 16 [facility] BUN 30 (H) 7 - 23 mg/dL [facility] GLUCOSE 119 (H) 70 - 110 mg/dL [facility] CREATININE 2.15 (H) 0.50 - 1.04 [facility] mg/dL [facility] CALCIUM 8.3 (L) 8.6 - 10.6 [facility] mg/dL [facility] eGFR Calculation 22.0 mL/min/1.73m2 [facility] ([facility] LABORATORY [place]) eGFR Calculation 26.7 mL/min/1.73m2 [facility] () [facility] LAB[facility] Specimen Blood - ARM, LEFT Narrative Performed At [facility] of Glomerular Filtration Rate (GFR) [facility] LABORATORY and Staging of Kidney Disease* + + +- + | GFR (mL/min/1.73 m2) | With Kidney Damage | Without Kidney Damage + + +- + | >90 | Stage one | Normal + + +- + | 60-89 | Stage two | Decreased GFR + + +- + | 30-59 | Stage three | Stage three + + +- + | 15-29 | Stage four | Stage four + + +- + | <15 (or dialysis) | Stage five | Stage five + + +- + *Each stage assumes the associated GFR level has been in effect for at least three months. Stages 1 to 5, with or without kidney disease, indicate chronic kidney disease. Notes: Determination of stages one and two (with eGFR >59mL/min/1.73 m2) requires estimation of kidney damage for at least three months as defined by structural or functional abnormalities of the kidney, manifested by either: Pathological abnormalities or Markers of kidney damage (including abnormalities in the composition of the blood or urine or abnormalities in imaging tests). Performing Organization Address City/State/Zipcode Phone Number [facility] CLIA: [id number] [place] [address] CBC WITH DIFF (07/10/2020 5:02 AM CDT) Pathologist Sig nature WBC 6.80 4.30 - 11.10 [facility] 10*3/L [facility] RBC 4.25 3.93 - 5.25 [facility] 10*6/L [facility] HGB 10.9 (L) 11.6 - 15.0 [facility] g/dL [facility] HCT 33.5 (L) 35.7 - 45.2 % [facility] MCV 78.8 (L) 80.6 - 95.5 fL [facility] MCH 25.6 (L) 25.9 - 32.8 pg [facility] MCHC 32.5 31.6 - 35.1 [facility] g/dL [facility] RDW-SD 50.2 (H) 39.0 - 49.9 fL [facility] RDW-CV 17.7 (H) 12.0 - 15.5 % [facility] PLT 208 166 - 358 [facility] 10*3/L [facility] MPV 11.1 9.5 - 12.9 fL [facility] NRBC/100 WBC 0.0 0.0 - 10.0 /100 [facility] WBCs [facility] LAB[facility] NRBC x10^3 <0.01 10*3/L [facility] GRAN MAT (NEUT) % 71.5 % [facility] IMM GRAN % 0.40 % [facility] LYMPH % 11.3 % [facility] MONO % 13.4 % [facility] EOS % 2.5 % [facility] BASO % 0.9 % [facility] GRAN MAT x10^3(ANC) 4.86 1.88 - 7.09 [facility] 10*3/uL HOSPITAL LABORATORY IMM GRAN x10^3 0.03 0.00 - 0.06 [facility] 10*3/uL HOSPITAL LABORATORY LYMPH x10^3 0.77 (L) 1.32 - 3.29 [facility] 10*3/uL HOSPITAL LABORATORY MONO x10^3 0.91 0.33 - 0.92 [facility] 10*3/uL HOSPITAL LABORATORY EOS x10^3 0.17 0.03 - 0.39 [facility] 10*3/uL HOSPITAL LABORATORY BASO x10^3 0.06 0.01 - 0.07 [facility] 10*3/uL HOSPITAL LABORATORY Specimen Blood - ARM, LEFT Performing Organization Address [facility] Phone Number [facility] CLIA: [id number] [place] [address] LABORATORY [address] POCT GLUCOSE (AUTOMATED) (07/09/2020 8:02 PM CDT) Pathologist Sig nature POCT GLU 183 (H) 70 - 110 mg/dL [facility] LABORATORY Specimen Blood Performing Organization Address [facility] Phone Number [facility] CLIA: [id number] [place] [address] POCT GLUCOSE (AUTOMATED) (07/09/2020 4:10 PM CDT) Pathologist Sig nature POCT GLU 195 (H) 70 - 110 mg/dL [facility]OR[facility] Specimen Blood Performing Organization Address [facility] Phone Number [facility] CLIA: [id number] [place] [address] POCT GLUCOSE (AUTOMATED) (07/09/2020 11:37 AM CDT) Pathologist Sig nature POCT GLU 162 (H) 70 - 110 mg/dL [facility]OR[facility] Specimen Blood Performing Organization Address [facility] Phone Number [facility] CLIA: [id number] [place] [address] [address] POCT GLUCOSE (AUTOMATED) (07/09/2020 8:14 AM CDT) Pathologist Sig nature POCT GLU 112 (H) 70 - 110 mg/dL [facility]OR[facility] Specimen Blood Performing Organization Address [facility] Phone Number [facility] CLIA: [id number] [place] [address] N-TERMINAL PRO-BNP (07/09/2020 5:03 AM CDT) Pathologist Sig nature NT-proBNP 15,000 (H) <=450 pg/mL [facility]OR[facility] Specimen Blood - ARM, LEFT Narrative Performed At [employer] has been reported to cause a negative [facility] bias, interpret results relative to patient's use of biotin. Performing Organization Address [facility] Phone Number [facility] CLIA: [id number] [place] [address] BASIC METABOLIC PANEL (NA, K, CL, CO2, GLUCOSE, BUN, CREATININE, CA) (07/09/2020 5:03 AM CDT) NA 133 (L) 135 - 145 [facility] mmol/L [facility] K 4.5 3.5 - 5.0 [facility] mmol/L [facility] CL 100 98 - 108 mmol/L [facility] CO2 TOTAL 27 23 - 31 mmol/L [facility] AGAP 6 2 - 16 [facility] BUN 24 (H) 7 - 23 mg/dL [facility] GLUCOSE 107 70 - 110 mg/dL [facility] CREATININE 1.46 (H) 0.50 - 1.04 [facility] mg/dL [facility] CALCIUM 8.2 (L) 8.6 - 10.6 [facility] mg/dL [facility] LABORATORY eGFR Calculation 34.4 mL/min/1.73m2 [facility] ([facility] LABORATORY [place]) eGFR Calculation 41.7 mL/min/1.73m2 [facility] () [facility] LABORATORY Specimen Blood - ARM, LEFT Narrative Performed At [facility] of Glomerular Filtration Rate (GFR) [facility] LABORATORY and Staging of Kidney Disease* + + +- + | GFR (mL/min/1.73 m2) | With Kidney Damage | Without Kidney Damage + + +- + | >90 | Stage one | Normal + + +- + | 60-89 | Stage two | Decreased GFR + + +- + | 30-59 | Stage three | Stage three + + +- + | 15-29 | Stage four | Stage four + + +- + | <15 (or dialysis) | Stage five | Stage five + + +- + *Each stage assumes the associated GFR level has been in effect for at least three months. Stages 1 to 5, with or without kidney disease, indicate chronic kidney disease. Notes: Determination of stages one and two (with eGFR >59mL/min/1.73 m2) requires estimation of kidney damage for at least three months as defined by structural or functional abnormalities of the kidney, manifested by either: Pathological abnormalities or Markers of kidney damage (including abnormalities in the composition of the blood or urine or abnormalities in imaging tests). Performing Organization Address [facility] Phone Number [facility] CLIA: [id number] [place] [address] POCT GLUCOSE (AUTOMATED) (07/08/2020 8:08 PM CDT) [facility] [employer] POCT GLU 184 (H) 70 - 110 mg/dL [facility] LABORATORY Specimen Blood Performing Organization Address [id number] [place] [address] POCT GLUCOSE (AUTOMATED) (07/08/2020 4:37 PM CDT) [facility] [employer] POCT GLU 236 (H) 70 - 110 mg/dL [facility] Specimen Blood Performing Organization Address [facility] Phone Number [facility] CLIA: [id number] [place] [address] POCT GLUCOSE (AUTOMATED) (07/08/2020 11:15 AM CDT) Pathologist Sig nature POCT GLU 187 (H) 70 - 110 mg/dL [facility] Specimen Blood Performing Organization Address [facility] Phone Number [facility] CLIA: [id number] [place] [address] [place] [address] POCT GLUCOSE (AUTOMATED) (07/08/2020 7:56 AM CDT) Pathologist Sig nature POCT GLU 198 (H) 70 - 110 mg/dL [facility] Specimen Blood Performing Organization Address [facility] Phone Number [facility] CLIA: [id number] [place] [address] TROPONIN I (07/08/2020 6:10 AM CDT) Pathologist Sig nature TROPONIN I 0.085 (H) <=0.034 ng/mL [facility] Specimen Blood - ARM, RIGHT Narrative Performed At Equal or Less than 0.034 ng/ml---Normal [facility] Note: Cardiac troponin begins to rise 3-4 hours after the onset of ischemia. Repeat in 4-6 hours if the sample was drawn within 3-4 hours of the onset of the symptom and found normal. Between 0.035 and 0.120 ng/mL--- Borderline. Questionable myocardial injury or necros is Note: Serial measurement may be necessary to confirm or exclude the diagnosis of myocardial injury or necrosis; Clinical correlation (symptoms, EKGs, imaging studies, and others) required; Repeat in 4-6 hours if clinically indicated. Equal or Higher than 0.121 ng/mL---Abnormal. Myocardial Injury or Necrosis Likely Biotin has been reported to cause a negative bias, interpret results relative to patient's use of biotin. Performing Organization Address [facility] Phone Number [facility] CLIA: [id number] [place] [address] ANGIOGRAM LOWER EXTREMITY BILATERAL W CONTRAST (07/08/2020 5:13 AM CDT) Specimen Impressions Performed At PACS/VR/DOSE NO SIGNIFICANT ILIOFEMORAL ARTERIAL OCCL USIVE DISEASE ALTHOUGH DIFFUSE CALCIFICATIONS ARE CONSISTENT WITH LONG- STANDING DIABETES. DIFFUSE LOWER EXTREMITY SOFT TISSUE SWELLING MAY BE CARDIAC OR FLUID OVERLOAD IN ORIGIN. 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 RIGHT POPLITEAL ARTERY POORLY VISUALIZED DUE TO ARTIFACT FROM KNEE PROSTHESIS. HOWEVER, OCCLUSIVE DISEASE IS PRIMARILY BE LOW THE KNEE FROM THE RIGHT ANTERIOR TIBIAL AND PERONEAL ARTER IES WITH MULTIPLE STENOSES AFFECTING THE POSTERIOR TIBIAL ARTERY. FINDINGS: PELVIS: The visualized portions of the external iliac arteries show calcifications without focal stenosis. The common and i nternal iliac arteries are not visualized but the branches of the inter nal iliac arteries both opacify. The uterus is atrophic and otherwise unr emarkable. No pelvic mass or lymphadenopathy. Patient is status post right total hip arthroplasty. No pelvic bony lesions focally. LEFT LOWER EXTREMITY: Common femoral and profunda femoral tona ry widely patent. Calcified but patent left SFA with some moderate disease in the addu ctor canal. Popliteal artery mildly diseased with at least 50- 60 % calcific stenosis in its midportion at the level of the tibial plateau. There i s 3 vessel below the knee left leg runoff with alternating stenoses primari ly in the territory of the anterior tibial artery. Anterior and posterior and peroneal arteries flow into the left foot, however. There is diffuse soft tissue edema throughout the left lower extremity. RIGHT LOWER EXTREMITY: As on the left, the right SFA is moderately calcified with mild disease at the adductor canal. Right common femoral and profunda femoral artery widely patent. The right popliteal artery is pa tent and is poorly visualized in its midportion due to the presence of a right knee prosthesis. However, there are no collaterals to suggest significant stenos is at the popliteal level. Infrapopliteal runoff is primaril y from the anterior tibial and peroneal arteries. The right posterior t ibial artery shows several occlusions and stenoses but is reconstituted distally at the level of the right ankle. Narrative Performed At PROCEDURE: CT angiogram of the abdomen a nd pelvis and lower extremities PACS/VR/DOSE INDICATION: Coronary artery disease, deangelo betes, hypertension. History of aortic valve replacement and coronary ar corbin bypass surgery. Coronary artery disease post bypass. Bilateral le g swelling and claudication. Thin section CT angiography was performe d in the axial plane after the rapid intravenous administration of cont rast. No prior studies for comparison. Multiplanar reconstructions were performed as well as 3-D reformats. DOSE: 268 mgy-cm DLP Procedure Note [facility], Radiant Results Inft User - 2019 7:44 PM CDT PROCEDURE: CT angiogram of the abdomen and pelvis and lower extremities INDICATION: Coronary artery disease, deangelo betes, hypertension. History of aortic valve replacement and coronary ar corbin bypass surgery. Coronary artery disease post bypass. Bilateral le g swelling and claudication. Thin section CT angiography was performe d in the axial plane after the rapid intravenous administration of cont rast. No prior studies for comparison. Multiplanar reconstructions were performed as well as 3-D reformats. DOSE: 268 mgy-cm DLP IMPRESSION NO SIGNIFICANT ILIOFEMORAL ARTERIAL OCCL USIVE DISEASE ALTHOUGH DIFFUSE CALCIFICATIONS ARE CONSISTENT WITH LONG- STANDING DIABETES. DIFFUSE LOWER EXTREMITY SOFT TISSUE SWELLING MAY BE CA RDIAC OR FLUID OVERLOAD IN ORIGIN. 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 RIGHT POPLITEAL ARTERY POORLY VISUALIZED DUE TO ARTIFACT FROM KNEE PROSTHESIS. HOWEVER, OCCLUSIVE DISEASE I S PRIMARILY BELOW THE KNEE FROM THE RIGHT ANTERIOR TIBIAL AND PERONEAL ARTER IES WITH MULTIPLE STENOSES AFFECTING THE POSTERIOR TIBIAL ARTERY. FINDINGS: PELVIS: The visualized portions of the external iliac arteries show calcifications without focal stenosis. The common and i nternal iliac arteries are not visualized but the branches of the inter nal iliac arteries both opacify. The uterus is atrophic and otherwise unr emarkable. No pelvic mass or lymphadenopathy. Patient is status post right total hip arthroplasty. No pelvic bony lesions focally. LEFT LOWER EXTREMITY: Common femoral and profunda femoral tona ry widely patent. Calcified but patent left SFA with some moderate disea se in the adductor canal. Popliteal artery mildly diseased with at least 50- 60 % calcific stenosis in its midportion at the level of the tibial pl ateau. There is 3 vessel below the knee left leg runoff with alternating st enoses primarily in the territory of the anterior tibial artery. Anterior and posterior and peroneal arteries flow into the left foot, however. There is diffuse soft tissue edema throughout the left lower extremity. RIGHT LOWER EXTREMITY: As on the left, the right SFA is moderat erik calcified with mild disease at the adductor canal. Right common femoral and profunda femoral artery widely patent. The right popliteal artery is pa tent and is poorly visualized in its midportion due to the presence of a right knee prosthesis. However, there are no collaterals to suggest sign ificant stenosis at the popliteal level. Infrapopliteal runoff is primaril y from the anterior tibial and peroneal arteries. The right posterior t ibial artery shows several occlusions and stenoses but is reconstit uted distally at the level of the right ankle. Performing Organization Address City/[facility] Phone Number PACS/VR/DOSE TROPONIN I (07/08/2020 12:19 AM CDT) Pathologist Sig [employer] TROPONIN I 0.089 (H) <=0.034 ng/mL [facility] Specimen Blood - ARM, RIGHT Narrative Performed At Equal or Less than 0.034 ng/ml---Normal [facility] Note: Cardiac troponin begins to rise 3-4 hours after the onset of ischemia. Repeat in 4-6 hours if the sample was drawn within 3-4 hours of the onset of the symptom and found normal. Between 0.035 and 0.120 ng/mL--- Borderline. Questionable myocardial injury or necros is Note: Serial measurement may be necessary to confirm or exclude the diagnosis of myocardial injury or necrosis; Clinical correlation (symptoms, EKGs, imaging studies, and others) required; Repeat in 4-6 hours if clinically indicated. Equal or Higher than 0.121 ng/mL---Abnormal. Myocardial Injury or Necrosis Likely Biotin has been reported to cause a negative bias, interpret results relative to patient's use of biotin. Performing Organization Address [facility] Phone Number [facility] CLIA: [id number] [place] [address] Basic Metabolic Panel (NA, K, CL, CO2, GLUCOSE, BUN, CREATININE, CA) (07/08/2020 12:19 AM CDT) Pathologist [facility] [place] [employer] NA 134 (L) 135 - 145 [facility] mmol/L [facility] K 4.2 3.5 - 5.0 [facility] mmol/L [facility] CL 97 (L) 98 - 108 mmol/L [facility] CO2 TOTAL 29 23 - 31 mmol/L [facility] AGAP 8 2 - 16 [facility] BUN 23 7 - 23 mg/dL [facility] GLUCOSE 193 (H) 70 - 110 mg/dL [facility] CREATININE 1.04 0.50 - 1.04 [facility] mg/dL [facility] CALCIUM 9.1 8.6 - 10.6 [facility] mg/dL [facility] eGFR Calculation 50.9 mL/min/1.73m2 [facility] (Non[facility] LAB[facility]ATORY [place]i) eGFR Calculation 61.6 mL/min/1.73m2 [facility] () [facility] Specimen Blood - ARM, RIGHT Narrative Performed At Association of Glomerular Filtration Rate (GFR) [facility] and Staging of Kidney Disease* + + +- + | GFR (mL/min/1.73 m2) | With Kidney Damage | Without Kidney Damage + + +- + | >90 | Stage one | Normal + + +- + | 60-89 | Stage two | Decreased GFR + + +- + | 30-59 | Stage three | Stage three + + +- + | 15-29 | Stage four | Stage four + + +- + | <15 (or dialysis) | Stage five | Stage five + + +- + *Each stage assumes the associated GFR level has been in effect for at least three months. Stages 1 to 5, with or without kidney disease, indicate chronic kidney disease. Notes: Determination of stages one and two (with eGFR >59mL/min/1.73 m2) requires estimation of kidney damage for at least three months as defined by structural or functional abnormalities of the kidney, manifested by either: Pathological abnormalities or Markers of kidney damage (including abnormalities in the composition of the blood or urine or abnormalities in imaging tests). Performing Organization Address City/State/Zipcode Phone Number [facility] CLIA: [id number] [place] [address] CBC with Differential (07/08/2020 12:19 AM CDT) [facility] WBC 6.91 4.30 - 11.10 [facility] 10*3/L [facility] RBC 4.68 3.93 - 5.25 [facility] 10*6/L [facility] HGB 12.0 11.6 - 15.0 [facility] g/dL HOSPITAL [facility]ORY HCT 37.7 35.7 - 45.2 % [facility] MCV 80.6 80.6 - 95.5 fL [facility] MCH 25.6 (L) 25.9 - 32.8 pg [facility] MCHC 31.8 31.6 - 35.1 [facility] g/dL [facility] RDW-SD 50.5 (H) 39.0 - 49.9 fL [facility] RDW-CV 17.4 (H) 12.0 - 15.5 % [facility] PLT 236 166 - 358 [facility] 10*3/L [facility] MPV 10.9 9.5 - 12.9 fL [facility] NRBC/100 WBC 0.0 0.0 - 10.0 /100 [facility] WBCs [facility] NRBC x10^3 <0.01 10*3/L [facility] GRAN MAT (NEUT) % 74.4 % [facility] IMM GRAN % 0.30 % [facility] LYMPH % 12.3 % [facility] MONO % 8.2 % [facility] EOS % 3.8 % [facility] BASO % 1.0 % [facility] GRAN MAT x10^3(ANC) 5.14 1.88 - 7.09 [facility] 10*3/uL [facility] IMM GRAN x10^3 <0.03 0.00 - 0.06 [facility] 10*3/uL HOSPITAL LAB[facility]ORY LYMPH x10^3 0.85 (L) 1.32 - 3.29 [facility] 10*3/uL HOSPITAL LAB[facility]ORY MONO x10^3 0.57 0.33 - 0.92 [facility] 10*3/uL HOSPITAL LAB[facility]ORY EOS x10^3 0.26 0.03 - 0.39 [facility] 10*3/uL [facility]ITAL [facility] BASO x10^3 0.07 0.01 - 0.07 [facility] 10*3/uL [facility]OS[facility]ITAL LAB[facility]ORY Specimen Blood - ARM, RIGHT Performing Organization Address City/State/Zipcode Phone Number [facility] CLIA: [id number] [place] [address] POCT GLUCOSE (AUTOMATED) (07/07/2020 10:12 PM CDT) Pathologist Sig nature POCT GLU 217 (H) 70 - 110 mg/dL [facility] Specimen Blood Performing Organization Address City/[facility] Phone Number [facility] CLIA: [id number] [place] [address] IRON PANEL (07/07/2020 5:59 PM CDT) Pathologist Sig nature IRON 42 (L)Comment: 50 - 160 ug/dL [facility] hemolysis [facility] TIBC 402 250 - 410 ug/dL [facility] % FE SAT 10 (L) 20 - 50 % [facility] Specimen Blood - VENOUS Performing Organization Address City/[facility] [place] Phone Number [facility] CLIA: [id number] [place] [address] FOLATE (07/07/2020 5:59 PM CDT) FOLATE SER 10.1Comment: Biotin 3.0 - 20.0 [facility] has been reported ng/mL SERVICES to cause a positive bias, interpret results relative to patient's use of biotin. Specimen Blood - VENOUS Performing Organization Address [facility] Phone Number [facility] SERVICES CLIA: [id number] [place] [address] [place] [address] VITAMIN B12, LEVEL (07/07/2020 5:59 PM CDT) Pathologist Sig nature VIT B12 967 (H) 240 - 930 pg/mL [facility] SERVICES Specimen Blood - VENOUS Narrative Performed At Biotin has been reported to cause a positive bias, int erpret [facility] SERVICES results relative to patient's use of biotin. Performing Organization Address City/[facility] Phone Number [facility] CLIA: [id number] [place] [address] [place] [address] VITAMIN D, 25-OH (07/07/2020 5:59 PM CDT) Pathologist Sig nature VIT D 25OH 37 25 - 80 ng/mL [facility] SERVICES Specimen Blood - VENOUS Narrative Performed At Deficiency: <20 ng/mL [facility] SERVICES Insufficiency: 20-24 ng/mL Optimal: 25-80 ng/mL Performing Organization Address City/[facility]/Zipcode Phone Number [facility] CLIA: [id number] [place] [address] [place] [address] VITAMIN B1 (THIAMINE), WHOLE BLOOD (07/07/2020 5:59 PM CDT) Vitamin B1, Whole 40 (L) 70 - 180 [facility] Blood Comment: nmol/L INTERPRETIVE INFORMATION: Vitamin B1, Whole Blood This assay measures the concentration of thiamine diph osphate (TDP), the primary active form of vitamin B1. Approxim ately 90 percent of vitamin B1 present in whole blood is TDP. T hiamine and thiamine monophosphate, which comprise the remaining 1 0 percent, are not measured. Test developed and characteristics determined by [employer]. See Compliance Statement B: [employer]/ CS Performed By: [facility] [employer] [address] [place] [address] Lead Cook: Nisha Barnes MD Specimen Blood - VENOUS Performing Organization Address [facility] Phone Number [facility] [address] [place] [address] URINE CULTURE (07/07/2020 5:59 PM CDT) URINE CULTURE 10,000-100,000 CFU/mL [facility] Escherichia coli SERVICES Specimen Urine - URINE, CLEAN CATCH Organism Antibiotic Method Susceptibility Escherichia coli Amoxacillin/Clavulanic SUSCEPTIBILITY TESTING 8 : Susceptible acid Escherichia coli Ampicillin SUSCEPTIBILITY TESTING >=32: Re sistant Escherichia coli Ampicillin/Sulbactam SUSCEPTIBILITY TESTING 8: Susceptible Escherichia coli Cefazolin SUSCEPTIBILITY TESTING <=4: Elena ceptible Escherichia coli Ceftriaxone SUSCEPTIBILITY TESTING <=1: Elena ceptible Escherichia coli Ciprofloxacin SUSCEPTIBILITY TESTING <=0.25: Susceptible Escherichia coli Ertapenem SUSCEPTIBILITY TESTING <=0.5: S usceptible Escherichia coli Gentamicin SUSCEPTIBILITY TESTING <=1: Elena ceptible Escherichia coli Levofloxacin SUSCEPTIBILITY TESTING 1: Susce ptible Escherichia coli Nitrofurantoin SUSCEPTIBILITY TESTING <=16: Mondragon sceptible Escherichia coli Piperacillin/Tazobactam SUSCEPTIBILITY TESTING <=4: Susceptible Escherichia coli Trimethoprim/Sulfamethoxa SUSCEPTIBILITY TESTIN G >=320: Resistant zole Comment: Nitrofurantoin is not recommended for us e in treating pyelonephritis or systemic disease. Performing Organization Address City/State/Zipcode Phone Number [facility] SERVICES CLIA: [id number] [place] [address] [place] [address] XR CHEST 1 VW (07/07/2020 5:35 PM CDT) Specimen Impressions Performed At Impression: Cardiomegaly. No lung consolidation. PACS/ VR/DOSE Narrative Performed At Exam: XR CHEST 1 VW 07/07/2020 5:18 PM PACS/VR/DOSE Clinical History: pneumonia Comparison: Radiograph of 02/20/2018 Technique: AP view of the chest Findings: The heart is enlarged. A left chest wall pacemaker walter d overlies the center of the cardiac shadow. The lungs are isac ar. Aortic knob calcification. Sternotomy wires are noted. No acute osseous abnormali ty. Subdiaphragmatic vascular calcification. Gas containing substernal abdominal wall hernia is noted. Procedure Note Rust, Radiant Results Inft User - 2019 5:46 PM CDT Exam: XR CHEST 1 VW 07/07/2020 5:18 PM Clinical History: pneumonia Comparison: Radiograph of 02/20/2018 Technique: AP view of the chest Findings: The heart is enlarged. A left chest wall pacemaker lead overlies the center of the cardiac shadow. The lungs are isac ar. Aortic knob calcification. Sternotomy wires are noted. No acute oss eous abnormality. Subdiaphragmatic vascular calcification. Gas containing substernal abdominal wall hernia is noted. IMPRESSION Impression: Cardiomegaly. No lung consol idation. Performing Organization Address City/State/Zipcode Phone Number PACS/VR/DOSE Critical Care (07/07/2020 5:26 PM CDT) Narrative Performed At Saurabh Rosenthal MD 07/07/2020 5 :26 PM Critical Care Performed by: Saurabh Rosenthal MD Authorized by: Saurabh Rosenthal MD Critical care provider statement: Critical care time (minutes): 45 Critical care was necessary to treat or prevent imminent or life-threatening deterioration of the fo llowing conditions: Cardiac failure Critical care was time spent personal ly by me on the following activities: Ordering and performing tr eatments and interventions, ordering and review of laboratory studie s, ordering and review of radiographic studies, pulse oximetry, re -evaluation of patient's condition, development of treatment plan with patient or surrogate, discussions with primary provider, discu ssions with consultants, evaluation of patient's response to treatment and exam ination of patient Urinalysis (07/07/2020 4:31 PM CDT) Pathologist Sig nature APPEARANCE Cloudy (A) Clear [facility] COLOR Yellow Yellow [facility] PH 6.0 4.8 - 8.0 [facility] SP GRAVITY 1.023 1.003 - 1.030 [facility] GLU U QUAL 500 mg/dL (A) Normal [facility] BLOOD 1+ (A) Negative [facility] KETONES Negative Negative [facility] PROTEIN 500 mg/dL (A) Negative [facility] UROBILIN Normal Normal [facility] BILIRUBIN Negative Negative [facility] NITRITE Negative Negative [facility] LEUK KARSTEN 500/uL (A) Negative [facility] RBC/HPF 16 (H) 0 - 3 HPF [facility] WBC/HPF >182 (H) 0 - 5 HPF [facility] BACTERIA Moderate (A) Negative [facility] SQ EPITH 3 HPF [facility] WBC CLUMPS 19 (H) <=1 HPF [facility] Specimen Urine - URINE, CLEAN CATCH Performing Organization Address City/State/Zipcode Phone Number [facility] CLIA: [id number] [place] [address] BLOOD CULTURE SCREEN (07/07/2020 4:20 PM CDT) Blood No organisms isolated No growth [facility] Culture-Aerobic Comment: HOSPITAL Previous preliminary verifie d result was Culture In Progress on 07/07/2020 at 2001 CDT LABORATORY Previous preliminary verifie d result was No growth at 24 hours on 07/08/2020 at 1701 CDT Previous preliminary verifie d result was No growth at 48 hours on 07/09/2020 at 1701 CDT Previous preliminary verifie d result was No growth at 72 hours on 07/10/2020 at 1701 CDT Blood No organisms isolated No growth [facility] Culture-Anaerobic Comment: HOSPITAL Previous preliminary verifie d result was Culture In Progress on 07/07/2020 at 2001 CDT LABORATORY Previous preliminary verifie d result was No growth at 24 hours on 07/08/2020 at 1701 CDT Previous preliminary verifie d result was No growth at 48 hours on 07/09/2020 at 1701 CDT Previous preliminary verifie d result was No growth at 72 hours on 07/10/2020 at 1701 CDT Specimen Blood - VENOUS Performing Organization Address [facility] Phone Number [facility] CLIA: [id number] [place] [address] AC PANEL 21 + LACTIC ACID (07/07/2020 4:16 PM CDT) [facility] PH 7.32 7.32 - 7.42 [facility] PCO2 GER[place]IA 49 41 - 51 mmHg [facility] PO2 GER[place]IA 25 25 - 40 mmHg [facility] HCO3 GER[place] 25 24 - 28 mEq/L [facility] AC VBE(BEAKER) -1.6 mEq/L [facility] THB [place]ER[place] 14.0 12.0 - 16.0 g/dL [facility] %O2HB [place]ER[place] 42.5 (L) 52.0 - 63.0 % [facility] %COHB [place]ER[place] 1.8 (H) 0.0 - 1.5 % [facility] %METHB [place]ER[place] 0.3 (L) 0.4 - 1.5 % [facility] VOL%O2 GER[place] 8.4 6.0 - 12.0 % [facility] NA 134 (L) 135 - 145 mmol/L [facility] K+ 4.7 3.5 - 5.0 mmol/L [facility] AC CA IONZ 4.40 (L) 4.50 - 5.30 mg/dL [facility] GLUCOSE 462 (HH) 70 - 110 mg/dL [facility] LACTIC ACID 4.25 mmol/L [facility] Specimen Blood - VENOUS Performing Organization Address [facility] Phone Number [facility] CLIA: [id number] [place] [address] FERRITIN SERUM (07/07/2020 4:15 PM CDT) Pathologist Sig nature FERRITIN 62.3 11.0 - 264.0 ng/mL [facility] Specimen Blood - VENOUS Narrative Performed At Biotin has been reported to cause a negative [facility] bias, interpret results relative to patient's use of biotin. Performing Organization Address [facility] Phone Number [facility] CLIA: [id number] [place] [address] THYROID STIMULATING HORMONE (07/07/2020 4:15 PM CDT) Pathologist Sig nature TSH 4.81 (H)Comment: 0.45 - 4.70 [facility] Biotin has been mIU/L [facility] reported to cause a negative bias, interpret results relative to patient's use of biotin. Specimen Blood - VENOUS Performing Organization Address [facility] Phone Number [facility] CLIA: [id number] [place] [address] [address] GLYCOSYLATED HEMOGLOBIN (A1C) (07/07/2020 4:15 PM CDT) Pathologist Sig nature HGB A1C 11.2 (H) 4.0 - 6.0 % [facility] Specimen Blood - VENOUS Narrative Performed At %A1C (NGSP) Interpretation (ADA) [facility] 4.8-5.6 Normal or (Non-Diabetic Ra nge) 5.7-6.4 Increased Risk (Pre-Diabet ic) >6.5 Diabetes Indicated Performing Organization Address [facility] Phone Number [facility] CLIA: [id number] [place] [address] TROPONIN I (07/07/2020 4:15 PM CDT) Pathologist Sig nature TROPONIN I 0.072 (H) <=0.034 ng/mL [facility] Specimen Blood - VENOUS Narrative Performed At Equal or Less than 0.034 ng/ml---Normal [facility] Note: Cardiac troponin begins to rise 3-4 hours after the onset of ischemia. Repeat in 4-6 hours if the sample was drawn within 3-4 hours of the onset of the symptom and found normal. Between 0.035 and 0.120 ng/mL--- Borderline. Questionable myocardial injury or necros is Note: Serial measurement may be necessary to confirm or exclude the diagnosis of myocardial injury or necrosis; Clinical correlation (symptoms, EKGs, imaging studies, and others) required; Repeat in 4-6 hours if clinically indicated. Equal or Higher than 0.121 ng/mL---Abnormal. Myocardial Injury or Necrosis Likely Biotin has been reported to cause a negative bias, interpret results relative to patient's use of biotin. Performing Organization Address [facility] Phone Number [facility] CLIA: [id number] [place] [address] [place] [address] N-TERMINAL PRO-BNP (07/07/2020 4:15 PM CDT) Pathologist Sig nature NT-proBNP 16,100 (H) <=450 pg/mL [facility] Specimen Blood - VENOUS Narrative Performed At [facility] has been reported to cause a negative [facility] bias, interpret results relative to patient's use of biotin. Performing Organization Address [facility] Phone Number [facility] CLIA: [id number] [place] [address] [place] [address] LAB ONLY COVID INTERPRETATION (07/07/2020 4:15 PM CDT) COVID DMT Interpretation/Recommendatio nsTests (PCR) for Active Infection by COVID-19 Virus:This result indicates that the patient has been tested negative for the COVID-19 virus on one occasion. The most likely interpretation, for approximately two-thirds of [facility] Interpretation patients with a negative jay t, is that the patient is truly negative and has not been infected with the COVID-19 virus. However, for those tested using a nasopharyngeal sample, there is approximately a SERVICES [id number] chance that the patient was infected and the result of the first test is a "false" negative. This occurs because the virus is predominantly in the lung and out of reach of the nasopharyngeal swab. If the patient becomes progressively more symptomatic, a repeat PCR test should be performed.Tests for IgM and/ or IgG Antibodies to COVID-19 Virus:A. A test for IgM antibody to the COVID-19 virus is likely to be highly informative at this time. IgM antibodies to the COVID-19 virus identified in a high performing test, usually an ARIN or chemiluminescence b ased assay, should appear in most patients who are truly infected within approximately a week from the onset of symptoms, and in nearly all patients 2 to 3 weeks after symptoms begin. If the high performing IgM test is positive, even if the initia l PCR test for active infection was negative, it is highly probable the patient has been infected with the virus at some point. A repeat PCR test to determine if the patient has recovered from the infection would be important to perform if the IgM anti-C OVID-19 antibody test is positive.B. A test for IgG antibodies to the COVID-19 virus was not performed and is also likely to be informative. The sample for the IgG antibody test should be collected 2 or more weeks post onset of symptoms. It is the IgG antibodies that can confer long-term immunity to infectious agents. However, at this time, it is not known if the production of IgG antibodies indicates whether the patient is immune to future infections with the COVID-19 virus. It is also n ot known how long IgG antibodies to the COVID-19 virus persist, and therefore the length of immunity to future COVID-19 infections.C. Although it is uncommon, some patients cannot ever mount an antibody response to infectious agents, such as C OVID-19. If there are persistently negative results for IgM and IgG antibodies, this may be the explanation. COVID Results SARS-CoV-2 Rapid ID NOW (no units) [facility] Date Value SERVICES 07/07/2020 Not Detected Specimen Swab - NASOPHARYNGEAL SWAB Performing Organization Address City/State/Zipcode Phone Number [facility] SERVICES CLIA: [id number] [place] [address] [place] [address] COVID-19 (ID NOW RAPID TESTING) (07/07/2020 4:15 PM CDT) [facility] Signature SARS-CoV-2 Rapid ID Not Detected Not Detected [facility] Specimen Swab - NASOPHARYNGEAL SWAB Narrative Performed At [facility] COVID-19 Assay is an isothermal nucleic [facility] acid amplification test intended for the qualitative detection of nucleic acid from SARS-CoV-2 viral RNA in nasopharyngeal (COMMUNICABLE DISEASE SPECIALIST) specimens. It is used under Emergency Use Authorization (EUA) by FDA. The limit of detection (LOD) of the assay is 125 Genome Equivalents/mL. A positive result is indicative of the presence of SARS-CoV-2 RNA. Clinical correlation with patient history and other diagnostic information is necessary to determine patient infection status. A negative (Not Detected) result does not preclude SARS-CoV-2 infection. In patients with clinical symptoms and other tests that are consistent with SARS-CoV-2 infection, negative results should be treated as presumptive negative and a new specimen should be tested with alternative PCR molecular test. Invalid: Please collect a new specimen for repeat patient testing if clinically indicated. Performing Organization Address City/[facility] Phone Number [facility] CLIA: [id number] [place] [address] LABORATORY [address] BLOOD CULTURE SCREEN (07/07/2020 4:15 PM CDT) Blood No organisms isolated No growth [facility] Culture-Aerobic Comment: HOSPITAL Previous preliminary verifie d result was Culture In Progress on 07/07/2020 at 2000 CDT LABORATORY Previous preliminary verifie d result was No growth at 24 hours on 07/08/2020 at 1701 CDT Previous preliminary verifie d result was No growth at 48 hours on 07/09/2020 at 1701 CDT Previous preliminary verifie d result was No growth at 72 hours on 07/10/2020 at 1701 CDT Blood No organisms isolated No growth [facility] Culture-Anaerobic Comment: HOSPITAL Previous preliminary verifie d result was Culture In Progress on 07/07/2020 at 2000 CDT LABORATORY Previous preliminary verifie d result was No growth at 24 hours on 07/08/2020 at 1701 CDT Previous preliminary verifie d result was No growth at 48 hours on 07/09/2020 at 1701 CDT Previous preliminary verifie d result was No growth at 72 hours on 07/10/2020 at 1701 CDT Specimen Blood - VENOUS Performing Organization Address City/[facility]/Zipcode Phone Number [facility] CLIA: [id number] [place] [address] Prothrombin Time (PT) / INR (07/07/2020 4:15 PM CDT) PROTIME PATIENT 15.8 (H) 12.0 - 14.7 [facility] LABORATORY INR 1.3Comment: Normal [facility] INR <1.1; Warfarin [facility] Therapeutic range LABORATORY 2.0 to 3.0 or 2.5 to 3.5, depending upon the indications. Specimen Blood - VENOUS Performing Organization Address [facility] Phone Number [facility] CLIA: [id number] [place] [address] [place] [address] aPTT (07/07/2020 4:15 PM CDT) Pathologist Sig nature APTT Patient 25 23 - 38 Seconds [facility] LABORATORY Specimen Blood - VENOUS Narrative Performed At The [facility] patient population mean normal value [facility] LABORATORY for aPTT is 30 seconds. Performing Organization Address [facility] Phone Number [facility] CLIA: [id number] [place] [address] [place] [address] Hepatic Function Panel (ALB, T.PRO, BILI T, BU/BC, ALT, AST, ALK PHOS) (07/07/2020 4:15 PM CDT) Pathologist Sig nature TOTAL BILI 1.3 (H) 0.1 - 1.1 mg/dL [facility] LABORATORY BILI UNCON 0.7 0.1 - 1.1 mg/dL [facility] LAB[facility] BILI CONJ 0.0 0.0 - 0.3 mg/dL [facility] T PROTEIN 7.1 6.3 - 8.2 g/dL [facility] ALBUMIN 3.9 3.5 - 5.0 g/dL [facility] ALK PHOS 125 (H) 34 - 122 U/L [facility] ALTv 18 5 - 35 U/L [facility] AST(SGOT) 33 13 - 40 U/L [facility] LABOR[facility]ORY Specimen Blood - VENOUS Performing Organization Address [facility] Phone Number [facility] CLIA: [id number] [place] [address] [place] [address] Basic Metabolic Panel (NA, K, CL, CO2, GLUCOSE, BUN, CREATININE, CA) (07/07/2020 4:15 PM CDT) NA 134 (L) 135 - 145 [facility] mmol/L [facility] LABORATORY K 4.3 3.5 - 5.0 [facility] mmol/L [facility] LABORATORY CL 95 (L) 98 - 108 mmol/L [facility] LABORATORY CO2 TOTAL 26 23 - 31 mmol/L [facility] AGAP 13 2 - 16 [facility] BUN 25 (H) 7 - 23 mg/dL [facility] GLUCOSE 422 (H) 70 - 110 mg/dL [facility] CREATININE 1.11 (H) 0.50 - 1.04 [facility] mg/dL [facility] LABORATORY CALCIUM 9.5 8.6 - 10.6 [facility] mg/dL [facility] LABORATORY eGFR Calculation 47.2 mL/min/1.73m2 [facility] (Non-[facility] LABORATORY [place]) eGFR Calculation 57.2 mL/min/1.73m2 [facility] () [facility] LABORATORY Specimen Blood - VENOUS Narrative Performed At Association of Glomerular Filtration Rate (GFR) [facility] LABORATORY and Staging of Kidney Disease* + + +- + | GFR (mL/min/1.73 m2) | With Kidney Damage | Without Kidney Damage + + +- + | >90 | Stage one | Normal + + +- + | 60-89 | Stage two | Decreased GFR + + +- + | 30-59 | Stage three | Stage three + + +- + | 15-29 | Stage four | Stage four + + +- + | <15 (or dialysis) | Stage five | Stage five + + +- + *Each stage assumes the associated GFR level has been in effect for at least three months. Stages 1 to 5, with or without kidney disease, indicate chronic kidney disease. Notes: Determination of stages one and two (with eGFR >59mL/min/1.73 m2) requires estimation of kidney damage for at least three months as defined by structural or functional abnormalities of the kidney, manifested by either: Pathological abnormalities or Markers of kidney damage (including abnormalities in the composition of the blood or urine or abnormalities in imaging tests). Performing Organization Address City/State/Zipcode Phone Number [facility] CLIA: [id number] [place] [address] CBC with Differential (07/07/2020 4:15 PM CDT) [facility] WBC 7.36 4.30 - 11.10 [facility] 10*3/L HOSPITAL LABORATORY RBC 4.96 3.93 - 5.25 [facility] 10*6/L HOSPITAL LABORATORY HGB 12.6 11.6 - 15.0 [facility] g/dL [facility] LABORATORY HCT 39.8 35.7 - 45.2 % [facility] LABORATORY MCV 80.2 (L) 80.6 - 95.5 fL [facility] LABORATORY MCH 25.4 (L) 25.9 - 32.8 pg [facility] LABORATORY MCHC 31.7 31.6 - 35.1 [facility] g/dL [facility] LABORATORY RDW-SD 50.0 (H) 39.0 - 49.9 fL [facility] LABORATORY RDW-CV 17.3 (H) 12.0 - 15.5 % [facility] LABORATORY PLT 242 166 - 358 [facility] 10*3/L [facility] LABORATORY MPV 11.0 9.5 - 12.9 fL [facility] LABORATORY NRBC/100 WBC 0.0 0.0 - 10.0 /100 [facility] WBCs [facility] LABORATORY NRBC x10^3 <0.01 10*3/L [facility] LABORATORY GRAN MAT (NEUT) % 77.6 % [facility] LABORATORY IMM GRAN % 0.40 % [facility] LABORATORY LYMPH % 10.6 % [facility] LABOR[facility] MONO % 8.0 % [facility] LAB[facility] EOS % 2.4 % [facility] LABOR[facility] BASO % 1.0 % [facility] LABORATORY GRAN MAT x10^3(ANC) 5.71 1.88 - 7.09 [facility] 10*3/uL HOSPITAL LABORATORY IMM GRAN x10^3 0.03 0.00 - 0.06 [facility] 10*3/uL HOSPITAL LABORATORY LYMPH x10^3 0.78 (L) 1.32 - 3.29 [facility] 10*3/uL HOSPITAL LABORATORY MONO x10^3 0.59 0.33 - 0.92 [facility] 10*3/uL HOSPITAL LABORATORY EOS x10^3 0.18 0.03 - 0.39 [facility] 10*3/uL [facility] LABORATORY BASO x10^3 0.07 0.01 - 0.07 [facility] 10*3/uL [facility] LABORATORY Specimen Blood - VENOUS Performing Organization Address City/[facility]/Zipcode Phone Number [facility] CLIA: [id number] [place] [address] POCT GLUCOSE (AUTOMATED) (07/07/2020 4:03 PM CDT) [facility] POCT GLU 416 (H) 70 - 110 mg/dL [facility] LABORATORY Specimen Blood Performing Organization Address City/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 - Primary Acute on chronic combined systolic and d iastolic heart failure Hyperglycemia Other abnormal glucose Lactic acidosis Acidosis New onset a-fib Atrial fibrillation Acute congestive heart failure, unspecif ied heart failure type Lymphedema Other lymphedema Elevated troponin Other abnormal blood chemistry Congestive heart failure, unspecified HF chronicity, unspecified heart failure type Claudication of both lower extremities Stage 3a chronic kidney disease 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 Type II or unspecified type diabetes joaquín litus with renal manifestations, uncontrolled Persistent atrial fibrillation Atrial fibrillation Acute cystitis without hematuria Acute cystitis Dyslipidemia Other and unspecified hyperlipidemia Essential hypertension Unspecified essential hypertension S/P AVR Heart valve 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 Coronary artery disease involving [place] coronary artery of [place] heart without angina pectoris ICD (implantable cardioverter-defibrilla tor) in place UTI (urinary tract infection) Urinary tract infection, site not specif ied Troponin I above reference range Other abnormal blood chemistry documented in this encounter Administered Medications Medication Order MAR Action Action Date Dose Rate Site acetaminophen (TYLENOL) tablet Given 07/11/2020 2:45 AM CDT 650 mg 650 mg 650 mg, Oral, Q6HPRN, Starting Fri07/07/20 at 1743, Until Discontinued, Routine, Pain (scale 1-3) ALPRAZolam (XANAX) tablet 0.25 mg Given 07/14/2020 3:05 AM CDT 0.25 mg 0.25 mg, Oral, [id number], Starting Fri07/07/20 at 2225, Until Discontinued, Routine, anxiety Given 07/12/2020 11:43 PM CDT 0.25 mg Given 07/10/2020 10:54 PM CDT 0.25 mg amiodarone (PACERONE) tablet 200 mg Given 07/13/2020 8:02 PM CDT 200 mg 200 mg, Oral, QHS, First dose on 07/08/20 at 2100, Until Discontinued, Routine Given 07/12/2020 7:42 PM CDT 200 mg Given 07/11/2020 9:02 PM CDT 200 mg atorvastatin (LIPITOR) tablet 40 mg Given 07/13/2020 8:02 PM CDT 40 mg 40 mg, Oral, QHS, First dose on 07/08/20 at 2100, Until Discontinued, Routine Given 07/12/2020 7:42 PM CDT 40 mg Given 07/11/2020 9:02 PM CDT 40 mg calcitrioL (ROCALTROL) capsule 0.5 mcg Given 07/14/2020 9:04 AM CDT 0.5 mcg 0.5 mcg, Oral, DAILY, First dose on 07/10/20 at 1100, Until Discontinued, Routine Given 07/13/2020 8:47 AM CDT 0.5 mcg Given 07/12/2020 9:00 AM CDT 0.5 mcg clopidogreL (PLAVIX) tablet 75 mg Given 07/14/2020 9:05 AM CDT 75 mg 75 mg, Oral, DAILY, First dose on 07/08/20 at 0900, Until Discontinued, Routine Given 07/13/2020 8:47 AM CDT 75 mg Given 07/12/2020 9:00 AM CDT 75 mg dextrose 50 % in water (D50W) injection 25 mL 25 mL, Slow IV Push, PRN, Starting Sat 1 at 0812, Until Discontinued, HEIDI, Blood Glucose < or = 70 mg/dL and patien t is unable to swallow or has mental status changes. diphenhydrAMINE (BENADRYL) tablet 25 mg Given 07/12/2020 7:51 PM CDT 25 mg 25 mg, Oral, Q4HPRN, Starting 07/08/20 at 0338, Until Discontinued, Routine, Itching Given 07/12/2020 1:21 AM CDT 25 mg Given 07/08/2020 3:41 AM CDT 25 mg enoxaparin (LOVENOX) injection 30 mg Given 07/14/2020 9:04 AM CDT 30 mg Abdo men-SC 30 mg, Subcutaneous, DAILY, First dose (after last reorder) on Fri07/09/20 at 0900, Until Discontinued, Routine Given 07/13/2020 8:47 AM CDT 30 mg Abdo men-SC Given 07/12/2020 9:01 AM CDT 30 mg Abdo men-SC fenofibrate micronized (LOFIBRA) capsule 134 Given 9:04 AM CDT 134 mg mg 134 mg, Oral, DAILY, First dose on 07/08/20 at 0900, Until Discontinued, Routine Given 07/13/2020 8:47 AM CDT 134 mg Given 07/12/2020 9:00 AM CDT 134 mg FLUoxetine (PROZAC) capsule 20 mg Given 07/14/2020 9:05 AM CDT 20 mg 20 mg, Oral, DAILY, First dose on 07/08/20 at 0900, Until Discontinued, Routine Given 07/13/2020 8:47 AM CDT 20 mg Given 07/12/2020 9:00 AM CDT 20 mg furosemide (LASIX) tablet 40 mg Given 07/14/2020 9:05 AM CDT 40 mg 40 mg, Oral, DAILY, First dose on Fri07/14/20 at 0900, Until Discontinued, Routine glucagon (GLUCAGEN DIAGNOSTIC KIT) injec tion 1 mg 1 mg, Intramuscular, PRN, Starting Sat 1 at 0812, Until Discontinued, HEIDI, Blood Glucose < or = 70 mg/dL and patient is unable to swallow or has mental changes. hydrALAZINE (APRESOLINE) tablet 25 mg Given 07/08/2020 12:01 AM CDT 25 mg 25 mg, Oral, Q6HPRN, Starting Fri07/07/20 at 2230, Until Discontinued, Routine, FOR SBP > 160, DBP > 100 insulin glargine (LANTUS U-100) Given 07/13/2020 8:00 PM CDT 10 Units Abdomen-SC injection 20 Units 20 Units, Subcutaneous, QHS, First dose (after last modification) on Fri07/12/20 at 2100, Until Discontinued, Routine Given 07/12/2020 7:39 PM CDT 20 Units Abdo men-SC lactobacillus acidophilus (ACIDOPHILLUS) Given 07/14/2020 9 :04 AM CDT 1 tablet 25 million cell -100 mg captab 1 tablet 1 tablet, Oral, BID, First dose on 07/11/20 at 2000, Until Discontinued, Routine Given 07/13/2020 8:02 PM CDT 1 tablet Given 07/13/2020 8:47 AM CDT 1 tablet magnesium hydroxide (MILK OF MAGNESIA) 4 00 mg/5 mL suspension 30 mL 30 mL, Oral, TIDPRN, Starting Sun at 1244, Until Discontinued, Routine, Constipation pantoprazole (PROTONIX) EC tablet 40 mg Given 07/14/2020 9:04 AM CDT 40 mg 40 mg, Oral, DAILY, First dose on 07/08/20 at 0900, Until Discontinued, Routine Given 07/13/2020 8:47 AM CDT 40 mg Given 07/12/2020 9:00 AM CDT 40 mg Polyethylene Glycol 3350 (MIRALAX) powde r 17 g Given 07/14/2020 9:04 AM CDT 17 g 17 g, Oral, BID, First dose on 07/09/20 at 1245, Until Discontinued, Routine Given 07/13/2020 8:03 PM CDT 17 g Given 07/13/2020 8:46 AM CDT 17 g primidone (MYSOLINE) tablet 50 mg Given 07/14/2020 9:05 AM CDT 50 mg 50 mg, Oral, BID, First dose on 07/08/20 at 0800, Until Discontinued, Routine Given 07/13/2020 8:02 PM CDT 50 mg Given 07/13/2020 8:47 AM CDT 50 mg sennosides (SENOKOT) tablet 8.6 mg Given 07/14/2020 9:04 AM CDT 8.6 mg 8.6 mg, Oral, BID, First dose on 07/09/20 at 1245, Until Discontinued, Routine Given 07/13/2020 8:02 PM CDT 8.6 mg Given 07/13/2020 8:47 AM CDT 8.6 mg SITagliptin (JANUVIA) tablet 50 mg Given 07/14/2020 9:05 AM CDT 50 mg 50 mg, Oral, DAILY, First dose on 07/08/20 at 0900, Until Discontinued, Routine Given 07/13/2020 8:47 AM CDT 50 mg Given 07/12/2020 9:00 AM CDT 50 mg Sliding Scale Insulin - Lispro Given 07/13/2020 11:45 AM 2 Units Left Upper (HumaLOG) + Fsbg Testing CDT Arm-SC Subcutaneous, TID MEALS+HS, First dose on 07/08/20 at 1200, Until Discontinued, Routine Given 07/09/2020 9:09 PM CDT 2 Units Abdo men-SC Given 07/09/2020 4:42 PM CDT 2 Units Abdo men-SC sodium chloride tablet 1 g Given 07/14/2020 4:12 PM CDT 1 g 1 g, Oral, QID, First dose on Fri07/12/20 at 0800, Until Discontinued, Routine Given 07/14/2020 12:06 PM CDT 1 g Given 07/14/2020 9:04 AM CDT 1 g Medication Order MAR Action Action Date Dose Rate Site cefTRIAXone (ROCEPHIN) 1,000 mg Given 07/11/2020 6:54 PM CDT 1, 000 mg in NaCl 0.9% (NS) 50 mL MINI-BAG 1,000 mg, IV Piggyback, Q24H ABX, First dose on Fri07/07/20 at 1845, Until Discontinued, 50 mL, Reason for Anti-Infective: Documented Infection, Documented Infection Site: Urine, Duration of Therapy: 7 days Given 07/10/2020 6:54 PM CDT 1,000 mg Given 07/09/2020 9:14 PM CDT 1,000 mg cefTRIAXone (ROCEPHIN) 1,000 mg in NaCl Given 07/14/2020 9:04 A M CDT 1,000 mg 0.9% (NS) 50 mL MINI-BAG 1,000 mg, IV Piggyback, Q12H ABX, First dose (after last modification) on Fri07/12/20 at 0700, Until Discontinued, 50 mL, Reason for Anti-Infective: Documented Infection, Documented Infection Site: Urine, Duration of Therapy: 7 days Given 07/13/2020 6:10 PM CDT 1,000 mg Given 07/13/2020 6:39 AM CDT 1,000 mg enoxaparin (LOVENOX) injection 70 mg Given 07/07/2020 6:01 PM CDT 70 mg Abdo men-SC 70 mg (rounded from 72.6 mg = 1 mg/kg 72.6 kg), Subcutaneous, ONCE, 1 dose, Fri07/07/20 at 1845, Routine flu vaccine 65 yrs and up(PF) Given 07/14/2020 6:01 PM CDT 0.7 mL Left Deltoid-IM (FLUZONE HIGHDOSE QUAD 20-21 PF) syringe 0.7 mL 0.7 mL, Intramuscular, ONCE, 1 dose, Fri07/14/20 at 1745, Routine furosemide (LASIX) injection 20 mg Given 07/13/2020 6:10 PM CDT 20 mg 20 mg, IV Push, ONCE, 1 dose, Joselyn 07/13/20 at 1800, Routine furosemide (LASIX) injection 40 mg Given 07/07/2020 6:01 PM CDT 40 mg 40 mg, Slow IV Push, TID, First dose on Fri07/07/20 at 1745, Until Discontinued, Routine furosemide (LASIX) injection 40 mg Given 07/09/2020 9:13 PM CDT 40 mg 40 mg, Slow IV Push, Q12H, First dose (after last modification) on 07/08/20 at 0800, Until Discontinued, Routine Given 07/09/2020 9:25 AM CDT 40 mg Given 07/08/2020 8:36 PM CDT 40 mg insulin glargine (LANTUS Given 07/10/2020 8:48 PM CDT 20 Units Left Upper Arm-SC U-100) injection 20 Units 20 Units, Subcutaneous, QHS, First dose on 07/08/20 at 2100, Until Discontinued, Routine Given 07/09/2020 9:10 PM CDT 20 Units Abdo men-SC Given 07/08/2020 8:37 PM CDT 20 Units Abdo men-SC iohexol (OMNIPAQUE 350 BULK-150 mL) Given 07/08/2020 4:59 AM CD T 150 mL injection 150 mL 150 mL, Intravenous, ONCE, 1 dose, 07/08/20 at 0515, Routine iron sucrose (VENOFER) 300 mg in NaCl 0.9% New Bag 07/10 12:42 PM CDT 300 mg (NS) 250 mL infusion 300 mg, IV Infusion, ONCE, 07/10/20 at 1200, For 1 dose iron sucrose (VENOFER) 300 mg in NaCl 0.9% New Bag 07/11 9:13 AM CDT 300 mg (NS) 250 mL infusion 300 mg, IV Infusion, ONCE, 07/11/20 at 0915, For 1 dose meclizine (TRAVEL-EASE (MECLIZINE)) tablet 25 Given 5:04 PM CDT 25 mg mg 25 mg, Oral, ONCE, 1 dose, Fri07/07/20 at 1800, HEIDI ondansetron (ZOFRAN (PF)) injection 4 mg Given 07/07/2020 5:04 PM CDT 4 mg 4 mg, Slow IV Push, ONCE, 1 dose, Fri07/07/20 at 1800, HEIDI pneumococcal vac polyvalent Given 07/14/2020 6:01 PM CDT 0.5 mL Right Deltoid-IM (PNEUMOVAX-23) injection 0.5 mL 0.5 mL, Intramuscular, ONCE, 1 dose, Fri07/14/20 at 1745, Routine spironolactone (ALDACTONE) tablet 50 mg Given 07/09/2020 9:26 AM CDT 50 mg 50 mg, Oral, DAILY, First dose on 07/08/20 at 0900, Until Discontinued, Routine Given 07/08/2020 9:26 AM CDT 50 mg traMADoL (ULTRAM) tablet 50 mg Given 07/08/2020 3:35 AM CDT 50 mg 50 mg, Oral, Q8HPRN, Starting 07/07/20 at 1743, Until 07/09/20 at 1742, Routine, Pain (scale 4-6) documented in this encounter Additional Health Concerns Infection Onset Date Last Indicated Resolved Time COVID-19 Rule Out 07/07/2020 07/07/2020 07/07/2020 4: 51 PM CDT documented as of this encounter Insurance Payer Benefit Plan Subscriber ID Effective Dates Phone Address Type / Group HUMANA - HUMANA CHOICE [id number] 2017-Presen Medicare Adv MANAGED t PPO MEDICARE documented as of this encounter
--- OUTSIDE RECORDS SUMMARY | 2020-07-18 10:47 | XMS REPORT | Summary of Care ---
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 [facility] Edy Santacruz [address] [place] [id number] HFrEF (heart failure Professional Office 2, Adc Lab with reduced Building Phlebotomy ejection fraction) Lab Professional Office Building [address] [place] [address] , [address] [place] [address] Allergies Active Allergy Reactions Severity Noted Date Comments Codeine Hallucinations 06/20/2015 Morphine Hallucinations 06/20/2015 Penicillin Rash 06/20/2015 documented as of this encounter (statuses as of 07/17/2020) Medications Medication Sig Dispensed Refills Start Date End Date Status ALPRAZolam (XANAX) TAKE 1 TABLET BY 1 12/15/2015 Active 0.25 mg tablet MOUTH EVERY DAY NEEDED atorvastatin 0 03/06/2016 Active (LIPITOR) 40 mg tablet clopidogrel (PLAVIX) Take 75 mg by 5 02/08/2016 Active 75 mg tablet mouth daily. fenofibrate 0 03/06/2016 Active micronized (LOFIBRA) 134 mg capsule FLUoxetine (PROZAC) 0 02/14/2016 Active 20 mg capsule JANUVIA 50 mg tablet Take 50 mg by 3 02/07/2016 Active mouth daily. pantoprazole TAKE 1 TABLET BY 9 02/21/2016 Active (PROTONIX) 40 mg EC MOUTH ONCE A DAY tablet primidone (MYSOLINE) TAKE 1 TABLET BY 6 03/04/2016 Active 50 mg tablet MOUTH TWICE A DAY DOMINIQUE HURTADO 300 INJECT SUB 40 3 02/21/2016 Active unit/mL (1.5 mL) InPn UNITS EVERY DAY Blood Pressure Use as directed 1 Kit 0 03/13/2016 Active Monitor (BLOOD PRESSURE KIT) KitIndications: Essential hypertension lactobacillus Take 1 tablet by 14 tablet 0 07/14/2020 Active acidophilus 25 mouth 2 (two) million cell -100 mg times daily. 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 Indications: atrial fibrillation documented as of this encounter (statuses as of 07/17/2020) Active Problems Problem Noted Date Heart failure 07/08/2020 S/P AVR 07/08/2020 Coronary artery disease involving [place] coronary ton[place] of [place] heart 07/08/2020 without angina pectoris ICD (implantable [...] Signs Not on filedocumented in this encounter Nursing Notes Isabel Quinteros - 07/17/2020 2:30 PM CDT Venipuncture collection performed by clean technique on the left anticubitus. Total of 1 attempts were made. Slight pressure and a bandage/dressing were applied to the site(s). The patient experienced no complications. The following specimens were processed according to instructions and sent to [facility] laboratories per lab order on today: LT BLUE SST 1 RED LAV PPT DK GREEN (LiHep) DK GREEN (SodH) HORN DK BLUE (K2) DK BLUE (S) ACD Blood Culture NIPT/NTD documented in this encounter Plan of Treatment Date Type Specialty Care Team Description 08/01/2020 Laboratory Only Cardiology Pacemaker/Icd, Adc 08/08/2020 Office Visit Cardiology Amanda Quick M D [address] [place] [address] 15 [phone] Name Type Priority Associated Diagnoses Date/Ti me BASIC METABOLIC PANEL LAB Routine HFrEF (heart failur e 07/17/2020 2:18 PM CDT (NA, K, CL, CO2, with reduced ejection GLUCOSE, BUN, fraction) CREATININE, CA) N-TERMINAL PRO-BNP LAB Routine HFrEF (heart failure 1 2:18 PM CDT with reduced ejection fraction) Health Maintenance Due Date Last Done Comments EYE EXAM 1948 FOOT EXAM 1956 DTaP,Tdap,and Td Vaccines (1 - 1957 Tdap) Zoster Recombinant Vaccine 1988 (SHINGRIX) (1 of 2) Medicare Wellness Visit 2003 Osteoporosis Screening 2003 LDL-C 09/03/2017 09/03/2016, 01/30/2016 HgA1C 01/05/2021 07/07/2020, 09/03/2016, 03/13/2016 URINE MICROALBUMIN 07/11/2021 07/11/2020 CREATININE (SERUM) 07/14/2021 07/14/2020, 07/13/2020, 07/12/2020, Additional history exists Depression Screening 07/17/2021 07/17/2020 INFLUENZA VACCINE Completed 07/14/2020, 06/24/2019 PNEUMOCOCCAL VACCINES 65+ Completed 07/14/2020 documented as of this encounter Results Not on filedocumented in this encounter Visit Diagnoses Diagnosis HFrEF (heart failure with reduced ejecti on fraction) documented in this encounter Insurance Payer Benefit Plan Subscriber ID Effective Dates Phone Address Type / Group HUMANA - HUMANA CHOICE [id number] 2017-[place] Medicare Adv MANAGED t PPO MEDICARE documented as of this encounter
--- OUTSIDE RECORDS SUMMARY | 2020-07-18 10:48 | XMS REPORT | Summary of Care ---
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; Drive, [address] Persistent atrial fibrillation; [place] [id number] 15 S/P AVR; [id number] Coronary artery disease involving [place] coronary artery of [place] heart without angina pectoris; [phone] ICD (impl antable cardioverter-defibrillator) in place; Essential hyper tension Allergies Active Allergy Reactions Severity Noted Date Comments Codeine Hallucinations 06/20/2015 Morphine Hallucinations 06/20/2015 Penicillin Rash 06/20/2015 documented as of this encounter (statuses as of 07/17/2020) Medications Medication Sig Dispensed Refills Start End Date Status Date ALPRAZolam (XANAX) TAKE 1 TABLET BY 1 Active 0.25 mg tablet MOUTH EVERY DAY 6 NEEDED atorvastatin 0 Active (LIPITOR) 40 mg 6 tablet clopidogrel Take 75 mg by 5 Acti ve (PLAVIX) 75 mg mouth daily. 6 tablet fenofibrate 0 Active micronized 6 (LOFIBRA) 134 mg capsule FLUoxetine 0 Active (PROZAC) 20 mg 6 capsule JANUVIA 50 mg Take 50 mg by 3 Ac tive tablet mouth daily. 6 pantoprazole TAKE 1 TABLET BY 9 Active (PROTONIX) 40 mg MOUTH ONCE A DAY 6 EC tablet primidone TAKE 1 TABLET BY 6 Act judi (MYSOLINE) 50 mg MOUTH TWICE A 6 tablet DAY TOUJEO SOLOSTAR INJECT SUB 40 3 Active 300 unit/mL (1.5 UNITS EVERY DAY 6 mL) InPn Blood Pressure Use as directed 1 Kit 0 Active Monitor (BLOOD 6 PRESSURE KIT) KitIndications: Essential hypertension lactobacillus Take 1 tablet by 14 tablet 0 Active acidophilus 25 mouth 2 (two) 0 million cell -100 times daily. 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 fibrillation Indications: atrial fibrillation amiodarone TAKE 1 TABLET BY 6 07/17/20 Di scontinued (CORDARONE) 200 mg MOUTH AT BEDTIME 6 20 (Reorder) tablet spironolactone 0 07/17/20 Disco ntinued (ALDACTONE) 50 mg 6 20 (R eorder) tablet furosemide 40 mg Take 2 tablets 60 tablet 0 07/17/20 Discontinued tabletIndications: by mouth 2 (two) 0 20 (Reorder) Stage 3a chronic times daily. 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 documented as of this encounter (statuses as of 07/17/2020) Active Problems Problem Noted Date Heart failure 07/08/2020 S/P AVR 07/08/2020 Coronary artery disease involving [place] coronary tona ry of [place] heart 07/08/2020 without angina pectoris ICD (implantable [...] Sign Reading Time Taken Comments Blood Pressure 99/56 07/17/2020 1:22 PM CDT Pulse 75 07/17/2020 1:22 PM CDT Temperature - - Respiratory Rate 20 07/17/2020 1:22 PM CDT Oxygen Saturation 100% 07/17/2020 1:22 PM CDT Inhaled Oxygen Concentration - - Weight 71.2 kg (156 lb 14.4 oz) 07/17/2020 1:22 PM CDT Height 172.7 cm (5' 8") 07/17/2020 1:22 PM CDT Body Mass Index 23.86 07/17/2020 1:22 PM CDT documented in this encounter Progress Notes Amanda Quick MD - 07/17/2020 1:20 PM CDT CARDIOLOGY CLINIC NOTE 07/17/2020 Reason for Referral/Presenting Complaint: hospital follow up for HF PCP: Efra Dye History of Present Illness: Lilian Avila is an 79 years old female with PMH CAD s/p CABG, HFrEF with LVEF around 23%, s/p ICD, chronic Afib, s/p bioprosthetic AVR, HTN, DM, HLD, etc. In 06/2020 she was admitted to [facility] for acute on chronic HFrEF. "For the past few days she has noted progressive leg edema with weeping wound, dyspnea on exertion, and orthopnea. Uncertain of weight gain. She came to [facility] ER. Found to have UTI. Has been started on IV lasix with improvement in her breathing. Troponin was mildly elevated. NO chestpain. Last admission for HF in 04/[address] [facility]. Delgado's patient." She was diursed. Then developed ATN/PIOTR. Upon discharge lasix and spironolactone were restarted. She has been doing Ok. Good UOP. Mild leg edema with weeping. Walks a little. No orthopnea. Cardiovascular testing: EKG: Atrial fibrillation Incomplete right bundle branch block Anteroseptal infarct age undetermined Echocardiogram: Ejection Fraction = 20-25%. There is severe global hypokinesis of the left ventricle. Based on TAPSE measurement, RV function is moderately reduced. Estimated RA pressure is 15-20 mmHg. Right ventricular systolic pressure is elevated at 45-50 mmHg. There is a bioprosthetic prosthesis in the aortic position. Review of Systems: General: (-) fever, (-) chills, (-) weight [...] (-) claudication Psych: (-) anxiety, (-) depression Past Medical History: Past Medical History: Diagnosis Date CAD (coronary artery disease) DM2 (diabetes mellitus, type 2) HTN (hypertension) Current Medications: Current Outpatient Medications Medication Sig Dispense Refill amiodarone 200 mg tablet Take 1 tablet by mouth at bedtime. 90 tablet 3 apixaban 5 mg tablet Take 1 tablet by mouth 2 (two) times daily. Indications: atrial fibrillation 180 tablet 3 furosemide 40 mg tablet Take 2 tablets by mouth 2 (two) times daily. 180 tablet 1 spironolactone 50 mg tablet Take 1 tablet by mouth daily. 90 tablet 1 ALPRAZolam (XANAX) 0.25 mg tablet TAKE 1 TABLET BY MOUTH EVERY DAY NEEDED 1 atorvastatin (LIPITOR) 40 mg tablet clopidogrel (PLAVIX) 75 mg tablet Take 75 mg by mouth daily. 5 fenofibrate micronized (LOFIBRA) 134 mg capsule Insulin Syringe-Needle U-100 1 mL 28 gauge x 1/2" Syrg USE TO INJECT 5 TIMES DAILY lactobacillus acidophilus 25 million cell -100 mg captab Take 1 tablet by mouth 2 (two) times daily. 14 tablet 0 Blood Pressure Monitor (BLOOD PRESSURE KIT) Kit Use as directed 1 Kit 0 FLUoxetine (PROZAC) 20 mg capsule JANUVIA 50 mg tablet Take 50 mg by mouth daily. 3 pantoprazole (PROTONIX) 40 mg EC tablet TAKE 1 TABLET BY MOUTH ONCE A DAY 9 primidone (MYSOLINE) 50 mg tablet TAKE 1 TABLET BY MOUTH TWICE A DAY 6 TOUJEO SOLOSTAR 300 unit/mL (1.5 mL) InPn INJECT SUB 40 UNITS EVERY DAY 3 No current facility-administered medications for this visit. Social History: Social History Socioeconomic History Marital status: Spouse [...] file Gets together: Not on file Attends yarsanism service: Not on file Active member of [...] History Narrative Not on file Family History Family History Problem Relation Age of Onset Diabetes Mother Physical Examination: BP 99/56 (BP Location: Left arm, Patient Position: Sitting, BP CUFF SIZE: Adult Medium) | Pulse 75| Resp 20 | Ht 5' 8" (1.727 m) | Wt 156 lb 14.4 oz (71.2 kg) | SpO2 100% | BMI 23.86 kg/m Constitutional: alert and oriented x 3 (person, place and date/time); no apparent distress ENT: normocephalic atraumatic, supple, no lymphadenopathy, no bruits, no JVD Lungs: clear to auscultation bilaterally Cardiovascular: S1, S2 normal, irregular; no murmurs, rubs or gallops GI: soft; non-tender; non-distended; normoactive bowel sounds : not examined Musculoskeletal: Extremities: no clubbing, cyanosis, + edema Skin: no rashes Neuro: no focal deficits Assessment/Plan: ICD-10-CM ICD-9-CM 1. HFrEF (heart failure with reduced ejection fraction) I50.20 428.20 2. Stage 3a chronic kidney disease N18.31 585.3 3. 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 Persistent atrial fibrillation I48.19 427.31 5. S/P AVR Z95.2 V43.3 6. Coronary artery disease involving [place] coronary artery of [place] heart without angina cgzuytdsL91.10 414.01 7. ICD (implantable cardioverter-defibrillator) in place Z95.810 V45.02 8. Essential hypertension I10 401.9 HFrEF--Mild volume overload. Currently on lasix 80 mg BID and spironolactone 50 mg daily. Will get BMP to guide therapy. Low salt diet, daily weight. She has not been on beta alvina or ACEI/ARB due tolow BP. ECHO showed LVEF 20-25% with elevated venous pressure. Chronic Afib with controlled rate--Will continue amiodarone 200 mg daily. Will restart Eliquis 5 mg BID. CAD--s/p CABG. Continue plavix and lipitor. S/p AVR--ECHO showed stable parameters. S/p ICD--seems epicardial lead. HTN--well controlled. Relatively low. HLD--continue lipitor. Patient was counseled for lifestyle modifications including: diet and exercise. RTC 2 weeks Amanda Quick MD, FACC, EULOGIO Interactive Developer, Division of Cardiology [facility] Transitional Care Management: [id number] Visit 07/17/2020 Lilian Avila is a 79 year old female that was admitted on 07/07/20 to [facility], ADC MED SURG. She was discharged on 07/14/20 with a discharge disposition of RS- Referred/Discharged to Home Care. Lilian is here today for a hospital follow-up/transitional care management visit. CC: Hospital F/U HPI Allergies Lilian is allergic to codeine; morphine; and penicillin. Medications Outpatient Medications Prior to Visit Medication Sig Dispense Refill ALPRAZolam (XANAX) 0.25 mg tablet TAKE 1 TABLET BY MOUTH EVERY DAY NEEDED 1 atorvastatin (LIPITOR) 40 mg tablet clopidogrel (PLAVIX) 75 mg tablet Take 75 mg by mouth daily. 5 fenofibrate micronized (LOFIBRA) 134 mg capsule Insulin Syringe-Needle U-100 1 mL 28 gauge x 1/2" Syrg USE TO INJECT 5 TIMES DAILY digoxin 125 mcg (0.125 mg) tablet TAKE 1 TABLET BY MOUTH EVERY DAY (HOLD IF PULSE IS LESS THAN 60) ELIQUIS 2.5 mg tablet torsemide 10 mg tablet Take 10 mg by mouth 3 (three) times daily. lactobacillus acidophilus 25 million cell -100 mg captab Take 1 tablet by mouth 2 (two) times daily. 14 tablet 0 furosemide 40 mg tablet Take 2 tablets by mouth 2 (two) times daily. 60 tablet 0 Blood Pressure Monitor (BLOOD PRESSURE KIT) Kit Use as directed 1 Kit 0 FLUoxetine (PROZAC) 20 mg capsule JANUVIA 50 mg tablet Take 50 mg by mouth daily. 3 pantoprazole (PROTONIX) 40 mg EC tablet TAKE 1 TABLET BY MOUTH ONCE A DAY 9 primidone (MYSOLINE) 50 mg tablet TAKE 1 TABLET BY MOUTH TWICE A DAY 6 TOUJEO SOLOSTAR 300 unit/mL (1.5 mL) InPn INJECT SUB 40 UNITS EVERY DAY 3 amiodarone (CORDARONE) 200 mg tablet TAKE 1 TABLET BY MOUTH AT BEDTIME 6 spironolactone (ALDACTONE) 50 mg tablet No facility-administered medications prior to visit. Histories [...] file Gets together: Not on file Attends yarsanism service: Not on file Active member of [...] of Onset Diabetes Mother Review of Systems Physical Exam Vitals: 07/17/20 1322 BP: 99/56 BP Location: Left arm Patient Position: Sitting BP CUFF SIZE: Adult Medium Pulse: 75 Resp: 20 SpO2: 100% Weight: 156 lb 14.4 oz (71.2 kg) Height: 5' 8" (1.727 m) Assessment/Plan See above I certify that the following are true: Discharge records, pending tests and lab results reviewed: Yes Medications reviewed and reconciled: Yes Patient education provided to: patient Follow-up arranged with other healthcare providers needed in patient's care: Yes Established applicable referrals: Yes Complexity of medical decision making is: High No linked episodes documented in this encounter Plan of Treatment Date Type Specialty Care Team Description 08/01/2020 Laboratory Only Cardiology Pacemaker/Icd, Adc 08/08/2020 Office Visit Cardiology Amanda Quick M D [address] [facility] [address] [place] [address] 15 [phone] Name Type Priority Associated Diagnoses Order S chedule BASIC METABOLIC PANEL LAB Routine HFrEF (heart failur e 1 Occurrences starting (NA, K, CL, CO2, with reduced ejection until GLUCOSE, BUN, fraction) 10/17/2020 CREATININE, CA) N-TERMINAL PRO-BNP LAB Routine HFrEF (heart failure 1 Occurrences starting with reduced ejection 2019 until fraction) 09/16/2020 Health Maintenance Due Date Last Done Comments [...] (heart failure with reduced ejecti on fraction) - Primary Stage 3a chronic kidney disease 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 Type II or unspecified type diabetes joaquín litus with renal manifestations, uncontrolled Persistent atrial fibrillation Atrial fibrillation S/P AVR Heart valve 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 Coronary artery disease involving [place] coronary artery of [place] heart without angina pectoris ICD (implantable cardioverter-defibrilla tor) in place Essential hypertension Unspecified essential hypertension documented in this encounter Insurance Payer Benefit Plan Subscriber ID Effective Dates Phone Address Type / Group HUMANA - HUMANA CHOICE [id number] 2017-[place] Medicare Adv MANAGED t O MEDICARE documented as of this encounter
--- OUTSIDE RECORDS SUMMARY | 2020-07-18 10:48 | XMS REPORT | Summary of Care ---
:1940 Author Organization [facility] Address [address] [place] [address] Care Team Providers Name Role Phone Efra Dye Primary Care Provider Ramon Shaw DO Wire Weaver Cloth Reason for Visit Reason Comments Hospital F/U [...] Service IM-CARDIOVASCULAR DISEASE (Dr. 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 In 06/2020 she was admitted to [facility] for acute on chronic HFrEF. "For the past few days she has noted progressive leg edema with weeping wound, dyspnea on exertion, and orthopnea. Uncertain of weight gain. She came to [facility] ER. Found to have UTI. Has been started on IV lasix with improvement in her breathing. Troponin was mildly elevated. NO chestpain. Last admission for HF in 04/[address] [facility] Delgado's patient." She was diursed. Then [...] file Gets together: Not on file Attends amish service: Not on file Active member of [...] Z95.2 V43.3 6. Coronary artery disease involving [place] coronary artery of [place] heart without angina [id number] 414.01 7. ICD (implantable cardioverter-defibrillator) in place [...] 2 weeks Amanda Quick MD, FACC, EULOGIO Aluminum Siding Installer, Division of Cardiology [facility] Transitional Care Management: [id number] Visit 07/17/2020 Lilian Avila is a 79 year old female that was admitted on 07/07/20 to [facility], ADC MED SURG. She was discharged on [...] file Gets together: Not on file Attends amish service: Not on file Active member of [...] Visit Cardiology Amanda Quick M D [address] [facility] [address] [place] [address] 15 [phone] Name Type Priority Associated Diagnoses Order S [...] by other means Coronary artery disease involving [place] coronary artery of [place] heart without angina pectoris ICD (implantable cardioverter-defibrilla tor) in place Essential hypertension Unspecified essential hypertension documented in this encounter Insurance Payer Benefit Plan Subscriber ID Effective Dates Phone Address Type / Group HUMANA - HUMANA CHOICE [id number] 2017-[place] Medicare Adv MANAGED t O MEDICARE documented as of this encounter
[2020-07-18 10:56] LABS: Blood Morphology Comment NOT SEEN (NOT SEEN); Platelet Estimate ADEQ; Platelets, Giant NOTED; White Blood Cell Scan OK (OK)
[2020-07-18 10:57] LABS: Albumin 3.4 g/dL (3.4-5.0); Bilirubin Direct 0.7 mg/dL (0-0.2); Potassium 3.6 mmol/L (3.5-5.1); Protein, Total 7.4 g/dL (6.4-8.2); Troponin (Emerg Dept Use Only) 0.12 ng/mL (0.0-0.045)
[2020-07-18 11:12] LABS: Magnesium 1.2 mg/dL (1.8-2.4)
--- NOTE | 2020-07-18 11:16 | RAD REPORT ---
EXAM DESCRIPTION: RAD - Chest Single View - 07/18/2020 10:42 am CLINICAL HISTORY: Cough;Dyspnea COMPARISON: May 20 TECHNIQUE: AP portable chest image was obtained 07/18/2020 10:42 am . FINDINGS: No peripheral mass or consolidation. Interstitial pattern matches comparison. No pulmonary edema suspected peer heart size is slightly enlarged but stable or diminished compared to prior stud y. Vasculature within normal limits. Sternotomy wires are in place. Pacing or defibrillator device in place. No measurable pleural effusion and no pneumothorax. No acute bony abnormality seen. No acute aortic findings suspected. IMPRESSION: No acute cardiopulmonary process. Above detailed findings not significantly different from comparison. Heart size is similar to slightl y smaller.
--- NOTE | 2020-07-18 11:20 | EDPHYS ---
Physician Documentation [facility] Name: Lilian Avila Age: 79 yrs Sex: Female : 1940 Arrival Date: 07/18/2020 Time: 09:48 Bed 4 Private MD: ED Physician Deep Jeter HPI: 07/18 11:06 This 79 yrs old Female presents to ER via EMS with complaints of hypoglycemia.asha 11:06 ams. The patient presents with confusion, decreased mental status, decreased asha responsiveness, trouble concentrating. Onset: The symptoms/episode began/occurred just prior to arrival. Possible causes: CVA or TIA, head injury, low blood sugar, seizure, sepsis, unknown. Associated signs and symptoms: Pertinent positives: confusion, dizziness, lightheadedness, nausea. Onset: The symptoms/episode began/occurred at an unknown time. Patient's baseline: Neuro: alert and fully oriented, Motor: no deficits. Severity of symptoms: At their worst the symptoms were moderate in the emergency department the symptoms have improved mildly. Historical: - Allergies: 09:45 Codeine (Hallucinations/agitation); rb1 09:45 Morphine (Hallucinations/agitation); rb1 09:45 PENICILLINS (rash); rb1 - Home Meds: 09:45 amiodarone 200 mg Oral tab [Active]; atorvastatin 80 mg Oral tab [Active]; clopidogrel rb1 75 mg Oral tab 1 tab once daily [Active]; fluoxetine 20 mg Oral cap 1 cap [Active]; furosemide 40 mg Oral tab [Active]; gabapentin 300 mg Oral cap [Active]; Januvia 50 mg Oral tab [Active]; pantoprazole 40 mg Oral TbEC [Active]; primidone 50 mg Oral tab [Active]; spironolactone 50 mg Oral tab [Active]; - PMHx: 09:45 CHF; Diabetes - NIDDM; Hypertension; Myocardial infarction; rb1 - PSHx: 09: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 - Social history:: Smoking status: unknown. - Family history:: not pertinent. ROS: 11:13 Constitutional: Negative for fever, chills, and weight loss, Eyes: Negative for injury, asha pain, redness, and discharge, ENT: Negative for injury, pain, and discharge, Neck: Negative for injury, pain, and swelling, Cardiovascular: Negative for chest pain, palpitations, and edema, Abdomen/GI: Negative for abdominal pain, nausea, vomiting, diarrhea, and constipation, Back: Negative for injury and pain, : Negative for injury, bleeding, discharge, and swelling, MS/Extremity: Negative for injury and deformity, Skin: Negative for injury, rash, and discoloration, Psych: Negative for depression, anxiety, suicide ideation, homicidal ideation, and hallucinations, Allergy/Immunology: Negative for hives, rash, and allergies, Endocrine: Negative for neck swelling, polydipsia, polyuria, polyphagia, and marked weight changes, Hematologic/Lymphatic: Negative for swollen nodes, abnormal bleeding, and unusual bruising. 11:13 Respiratory: Positive for shortness of breath. 11:13 Neuro: Positive for altered mental status, weakness. Exam: 11:13 Constitutional: This is a well developed, well nourished patient who is awake, alert, asha and in no acute distress. Head/Face: Normocephalic, atraumatic. Eyes: Pupils equal round and reactive to light, extra-ocular motions intact. Lids and lashes normal. Conjunctiva and sclera are non-icteric and not injected. Cornea within normal limits. Periorbital areas with no swelling, redness, or edema. ENT: Nares patent. No nasal discharge, no septal abnormalities noted. Tympanic membranes are normal and external auditory canals are clear. Oropharynx with no redness, swelling, or masses, exudates, or evidence of obstruction, uvula midline. Mucous membranes moist. Neck: Trachea midline, no thyromegaly or masses palpated, and no cervical lymphadenopathy. Supple, full range of motion without nuchal rigidity, or vertebral point tenderness. No Meningismus. Chest/axilla: Normal chest wall appearance and motion. Nontender with no deformity. No lesions are appreciated. Cardiovascular: Regular rate and rhythm with a normal S1 and S2. No gallops, murmurs, or rubs. Normal PMI, no JVD. No pulse deficits. Abdomen/GI: Soft, non-tender, with normal bowel sounds. No distension or tympany. No guarding or rebound. No evidence of tenderness throughout. Back: No spinal tenderness. No costovertebral tenderness. Full range of motion. Female : Normal external genitalia. Skin: Warm, dry with normal turgor. Normal color with no rashes, no lesions, and no evidence of cellulitis. MS/ Extremity: Pulses equal, no cyanosis. Neurovascular intact. Full, normal range of motion. Psych: Awake, alert, with orientation to person, place and time. Behavior, mood, and affect are within normal limits. 11:13 Respiratory: the patient does not display signs of respiratory distress, Respirations: labored breathing, that is mild, Breath sounds: decreased breath sounds, that are mild, Respiratory rate: 20 Vital Signs: 09:45 BP 130 / 63; Pulse 123; Resp 20; Temp 96.6(TE); Pulse Ox 100% on 15% Non-rebreather rb1 mask; Weight 72.57 kg; Height 5 ft. 6 in. (167.64 cm); 11:00 BP 128 / 90; Pulse 105; Resp 17; Pulse Ox 100% on 15% Non-rebreather mask; rb1 12:00 BP 135 / 98; Pulse 104; Resp 23; Pulse Ox 100% on 15% Non-rebreather mask; rb1 13:00 BP 129 / 75; Pulse 78; Resp 12; Pulse Ox 99% on 15% Non-rebreather mask; rb1 13:30 BP 124 / 77; Pulse 87; Resp 14; Pulse Ox 99% ; rb1 14:20 BP 143 / 97; Pulse 88; Resp 17; Pulse Ox 99% on 15% Non-rebreather mask; rb1 15:20 BP 132 / 85; Pulse 81; Resp 14; Pulse Ox 100% on 15% Non-rebreather mask; rb1 09:45 Body Mass Index 25.82 (72.57 kg, 167.64 cm) rb1 MDM: 09:58 Patient medically screened. asha 10:37 ED course: Fercho (son) [phone]. kb 11:16 Differential Diagnosis altered mental status, sepsis. Differential Diagnosis: CVA, asha electrolyte abnormality, hypoglycemia, intracranial bleed, overdose, pneumonia, sepsis, TIA, UTI, volume depletion. Data reviewed: vital signs, nurses notes, EMS record, lab test result(s), EKG, radiologic studies, CT scan, plain films. Data reviewed: lab test result(s), cardiac enzymes, CPK, CK MB, troponin i, CBC, drug level(s), electrolytes, hepatic panel, urinalysis. Data interpreted: monitoring specialist: rate is 123 beats/min, rhythm is regular, Pulse oximetry: on room air is 100 %. Test interpretation: by ED physician or midlevel provider: ECG, plain radiologic studies. Counseling: I had a detailed discussion with the patient and/or guardian regarding: the historical points, exam findings, and any diagnostic results supporting the discharge/admit diagnosis, lab results, radiology results, the need for further work-up and treatment in the hospital. 07/18 09:54 Order name: glucometer results - FOR PT WITH NO ID 07/18 09:59 Order name: Basic Metabolic Panel [facility] 07/18 09:59 Order name: CBC with Diff [facility] 07/18 09:59 Order name: LFT's [facility] 07/18 09:59 Order name: Magnesium [facility] 07/18 09:59 Order name: NT PRO-BNP [facility] 07/18 09:59 Order name: PT-INR [facility] 07/18 09:59 Order name: Troponin (emerg Dept Use Only) [facility] 07/18 10:00 Order name: Urine Culture [facility] 07/18 10:16 Order name: Glucose, Ancillary(No Armband); Complete Time: 11:02 EDTN 07/18 10:20 Order name: Protime (+INR); Complete Time: 11:02 EDTN 07/18 10:20 Order name: CBC with Automated Diff; Complete Time: 11:02 EDTN 07/18 10:37 Order name: Glucose, Ancillary Testing; Complete Time: 11:02 EDTN 07/18 10:56 Order name: CBC Smear Scan; Complete Time: 11:02 EDTN 07/18 10:57 Order name: Basic Metabolic Panel; Complete Time: 11:42 EDTN 07/18 10:57 Order name: Liver (Hepatic) Function; Complete Time: 11:42 EDTN 07/18 10:57 Order name: Troponin (Emerg Dept Use Only); Complete Time: 11:42 EDTN 07/18 10:57 Order name: NT PRO-BNP; Complete Time: 11:42 EDTN 07/18 11:04 Order name: Lactate [facility] 07/18 11:04 Order name: Blood Culture Adult (2) [facility] 07/18 11:13 Order name: Magnesium; Complete Time: 11:42 EDTN 07/18 12:01 Order name: Glucose, Ancillary Testing; Complete Time: 13:46 [facility]TN 07/18 12:19 Order name: Glucose, Ancillary Testing; Complete Time: 13:46 [facility] 07/18 12:20 Order name: Lactate; Complete Time: 13:46 [facility] 07/18 12:45 Order name: COVID-19 jl7 07/18 12:57 Order name: Urine Dipstick--Ancillary (enter results) 07/18 12:59 Order name: Urine Dipstick-Ancillary; Complete Time: 13:46 [facility] 07/18 13:25 Order name: CORONAVIRUS [facility] 07/18 13:44 Order name: Glucose, Ancillary Testing; Complete Time: 13:46 [facility] 07/18 14:02 Order name: Glucose, Ancillary Testing [facility] 07/18 09:59 Order name: XRAY Chest (1 view) [facility] 07/18 09:59 Order name: EKG; Complete Time: 09:59 [facility] 07/18 09:59 Order name: Cardiac monitoring; Complete Time: 10:25 [facility] 07/18 09:59 Order name: EKG - Nurse/Tech; Complete Time: 10:25 [facility] 07/18 09:59 Order name: IV Saline Lock; Complete Time: 10:25 [facility] 07/18 09:59 Order name: Labs collected and sent; Complete Time: 10:25 [facility] 07/18 09:59 Order name: O2 Per Protocol; Complete Time: 10:25 [facility] 07/18 09:59 Order name: O2 Sat Monitoring; Complete Time: 10:25 [facility] 07/18 10:00 Order name: Urine Dipstick-Ancillary (obtain specimen); Complete Time: 11:10 [facility] 07/18 10:00 Order name: CT Head Brain wo Cont [facility] 07/18 10:46 Order name: CT; Complete Time: 11:02 [facility] 07/18 11:03 Order name: CT C Spine [facility] 07/18 11:03 Order name: CT Chest Abdomen Pelvis W/O Contrast: no iv no oral [facility] 07/18 11:03 Order name: Mckeon; Complete Time: 11:09 [facility] 07/18 11:13 Order name: Echo w/ Doppler [facility] 07/18 11:16 Order name: RAD; Complete Time: 11:42 [facility] 07/18 11:26 Order name: CT; Complete Time: 11:42 [facility] 07/18 11:32 Order name: CT; Complete Time: 11:42 [facility] 07/18 14:29 Order name: SARS-COV-2 RT PCR EDTN 07/18 14:39 Order name: Glucose, Ancillary Testing EDMS 07/18 15:57 Order name: Glucose, Ancillary Testing EDMS Administered Medications: 09:50 Drug: D50W 50 ml Route: IVP; Site: right antecubital; iw 10:17 Follow up: Response: No adverse reaction; Blood sugar is elevated rb1 10:20 Drug: D50W 25 ml Route: IVP; Site: right antecubital; rb1 12:05 Drug: Magnesium Sulfate 2 grams Route: IVPB; Infused Over: 2 hrs; Site: left forearm; rb1 12:05 Drug: Pepcid 20 mg Route: IVP; Site: left forearm; rb1 19:17 Follow up: Response: No adverse reaction rb1 12:06 Drug: Rocephin 1 grams Route: IV; Rate: per protocol; Site: left forearm; rb1 13:32 Drug: D50W 25 ml Route: IVP; Site: right forearm; rb1 13:55 Drug: D5-1/2 NS 1000 ml Route: IV; Rate: 75 ml/hr; Site: left forearm; rb1 19:17 Follow up: IV Status: Infusion continued upon admission rb1 14:35 Drug: D50W 25 ml Route: IVP; Site: left forearm; rb1 15:45 Follow up: Response: No adverse reaction; Blood sugar is elevated rb1 19:18 Not Given (Physician Discretion): NS 0.9% 1000 ml IV at 75 ml/hr continuous rb1 Point of Care Testing: Blood Glucose: 10:17 Blood Glucose: 78 mg/dL; rb1 Ranges: Critical Glucose Levels:Adult <50 mg/dl or >400 mg/dl <40 mg/dl or >180 mg/dl Disposition: 07/18/20 11:18 Hospitalization ordered by Efra Dye for Inpatient Admission. Preliminary diagnosis are Altered mental status, unspecified, Cardiomegaly - elevated troponin, Type 2 diabetes mellitus, Hypoglycemia, unspecified, Hypomagnesemia, Pleural effusion in conditions classified elsewhere, Unspecified kidney failure - acute on chronic. - Bed requested for Telemetry/MedSurg (Inpatient). - Status is Inpatient Admission. rb1 - Condition is Fair. - Problem is new. - Symptoms have improved. Signatures: Dispatcher [employer] EDMS Coni Crawley, REGINA-Royce TAPIA-Ruby Hinton RN RN Deep Franklin MD MD cha Williams, Irene, RN RN iw Lucina Romero, RN RN rb1 Corrections: (The following items were deleted from the chart) 11:45 11:18 Hospitalization Ordered by Efra Dye MD for Inpatient Admission. Preliminary asha diagnosis is Altered mental status, unspecified; Cardiomegaly - elevated troponin; Type 2 diabetes mellitus; Hypoglycemia, unspecified; Hypomagnesemia. Bed requested for Telemetry/MedSurg (Inpatient). Status is Inpatient Admission. Condition is Fair. Problem is new. Symptoms have improved. asha 14:16 11:45 07/18/2020 11:18 Hospitalization Ordered by Efra Dye MD for Inpatient dw Admission. Preliminary diagnosis is Altered mental status, unspecified; Cardiomegaly - elevated troponin; Type 2 diabetes mellitus; Hypoglycemia, unspecified; Hypomagnesemia; Pleural effusion in conditions classified elsewhere; Unspecified kidney failure - acute on chronic. Bed requested for Telemetry/MedSurg (Inpatient). Status is Inpatient Admission. Condition is Fair. Problem is new. Symptoms have improved. asha 16:12 14:16 07/18/2020 11:18 Hospitalization Ordered by Efra Dye MD for Inpatient rb1 Admission. Preliminary diagnosis is Altered mental status, unspecified; Cardiomegaly - elevated troponin; Type 2 diabetes mellitus; Hypoglycemia, unspecified; Hypomagnesemia; Pleural effusion in conditions classified elsewhere; Unspecified kidney failure - acute on chronic. Bed requested for Telemetry/MedSurg (Inpatient). Status is Inpatient Admission. Condition is Fair. Problem is new. Symptoms have improved. dw
--- NOTE | 2020-07-18 11:20 | ER ---
Nurse's Notes [facility] Name: Lilian Avila Age: 79 yrs Sex: Female : 1940 Arrival Date: 07/18/2020 Time: 09:48 Bed 4 Private MD: Diagnosis: Altered mental status, unspecified;Cardiomegaly-elevated troponin;Type 2 diabetes mellitus;Hypoglycemia, unspecified;Hypomagnesemia;Pleural effusion in conditions classified elsewhere;Unspecified kidney failure-acute on chronic Presentation: 07/18 09:45 Chief complaint: EMS states: 79 yr. old female was found on the floor by the professional services manager rb1 this morning. Pt. was unresponsive to verbal and pain and had red froth coming from her mouth. Initial BS 16, administered 20 of D 10 and 200 ml of NS IV 20G right AC. BS 71, O2 sat 92-94% 10 L Non-re breather. 09:45 Risk Assessment: Do you want to hurt yourself or someone else? Unable to obtain. Onset rb1 of symptoms is unknown. 09:45 Method Of Arrival: EMS: [facility] rb1 09:45 Acuity: JARRETT 2 iw 09:45 Coronavirus screen: unable to obtain. Ebola Screen: Unable to complete the Ebola rb1 screening because: Patient is unresponsive. Initial Sepsis Screen: Does the patient meet any 2 criteria? Temp <36.0*C (96.8*F)) or > 38.3*C (100.9*F). Altered Mental Status. HR > 90 bpm. Yes. Triage Assessment: 09:45 General: Appears in no apparent distress. Behavior is unresponsive. Neuro: Level of rb1 Consciousness is unresponsive, Oriented to none. Cardiovascular: Capillary refill < 3 seconds. Respiratory: Airway is patent Respiratory effort is even, unlabored, Respiratory pattern is regular, symmetrical. Derm: Skin is dry, Skin is pale, Skin temperature is cool scabs noted all over body. Historical: - Allergies: 09:45 Codeine (Hallucinations/agitation); rb1 09:45 Morphine (Hallucinations/agitation); rb1 09:45 PENICILLINS (rash); rb1 - Home Meds: 09:45 amiodarone 200 mg Oral tab [Active]; atorvastatin 80 mg Oral tab [Active]; clopidogrel rb1 75 mg Oral tab 1 tab once daily [Active]; fluoxetine 20 mg Oral cap 1 cap [Active]; furosemide 40 mg Oral tab [Active]; gabapentin 300 mg Oral cap [Active]; Januvia 50 mg Oral tab [Active]; pantoprazole 40 mg Oral TbEC [Active]; primidone 50 mg Oral tab [Active]; spironolactone 50 mg Oral tab [Active]; - PMHx: 09:45 CHF; Diabetes - NIDDM; Hypertension; Myocardial infarction; rb1 - PSHx: 09: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 - Social history:: Smoking status: unknown. - Family history:: not pertinent. Screenin:45 Abuse screen: unable to obtain. Nutritional screening: unable to obtain. Tuberculosis rb1 screening: unable to obtain. Fall Risk Fall in past 12 months (25 points). Secondary diagnosis (15 points) impaired mobility, IV access (20 points). Ambulatory Aid- Crutches/Cane/Walker (15 pts). Gait- Impaired (20 pts.). Mental Status- Overestimates/Forgets Limitations (15 pts.). Total Palmer Fall Scale indicates High Risk Score (45 or more points). Fall prevention measures have been instituted. Side Rails Up X 2 Placed Close to Nursing Station 1:1 Attendant Assigned Frequent Obs/Assessments Occuring As available patient and family educated on Fall Prevention Program and Strategies. Assessment: :45 General: See triage assessment. rb1 11:05 Reassessment: Pt went to CT. rb1 12:00 Reassessment: Patient appears in no apparent distress at this time. Patient and/or rb1 family updated on plan of care and expected duration. Pain level reassessed. Patient denies pain at this time. 12:00 Neuro: Level of Consciousness is awake, obeys commands, Oriented to person, place. rb1 12:00 Reassessment: Patient appears in no apparent distress at this time. rb1 13:00 Reassessment: Patient appears in no apparent distress at this time. Neuro: Level of rb1 Consciousness is awake, obeys commands, Oriented to person, place. 14:00 Reassessment: Patient appears in no apparent distress at this time. Neuro: Level of rb1 Consciousness is awake, alert, obeys commands, Oriented to person, place, situation. 14:38 Reassessment: Called to give report but was left on hold. rb1 14:41 Neuro: Level of Consciousness is awake, alert, obeys commands, Oriented to person, rb1 place, situation. 14:46 Reassessment: Called to give report but AFUA Li in a pt. room. She will call me rb1 back. 15:22 Reassessment: Nurse is unavailable for report at this time. rb1 15:45 Reassessment: Patient appears in no apparent distress at this time. Patient and/or rb1 family updated on plan of care and expected duration. Pain level reassessed. 15:49 Reassessment: Called report to AFUA Li. Information from the SBAR was given. All rb1 questions asked and answered. Vital Signs: 09:45 BP 130 / 63; Pulse 123; Resp 20; Temp 96.6(TE); Pulse Ox 100% on 15% Non-rebreather rb1 mask; Weight 72.57 kg; Height 5 ft. 6 in. (167.64 cm); 11:00 BP 128 / 90; Pulse 105; Resp 17; Pulse Ox 100% on 15% Non-rebreather mask; rb1 12:00 BP 135 / 98; Pulse 104; Resp 23; Pulse Ox 100% on 15% Non-rebreather mask; rb1 13:00 BP 129 / 75; Pulse 78; Resp 12; Pulse Ox 99% on 15% Non-rebreather mask; rb1 13:30 BP 124 / 77; Pulse 87; Resp 14; Pulse Ox 99% ; rb1 14:20 BP 143 / 97; Pulse 88; Resp 17; Pulse Ox 99% on 15% Non-rebreather mask; rb1 15:20 BP 132 / 85; Pulse 81; Resp 14; Pulse Ox 100% on 15% Non-rebreather mask; rb1 09:45 Body Mass Index 25.82 (72.57 kg, 167.64 cm) rb1 ED Course: 09:45 Patient has correct armband on for positive identification. Placed in gown. Bed in low rb1 position. Call light in reach. Side rails up X2. customs appraiser on. Pulse ox on. NIBP on. Warm blanket given. 09:45 Maintain EMS IV. Dressing intact. Site clean \T\ dry. Gauge \T\ site: 20 G R AC. rb 1 09:48 Patient arrived in ED. rb1 09:58 Deep Jeter MD is Attending Physician. asha 10:17 Triage completed. rb1 10:17 Arm band placed on right wrist. rb1 10:25 Lucina Romero, RN is Primary Nurse. rb1 11:17 Efra Dye MD is Hospitalizing Provider. asha 11:51 Inserted saline lock: 20 gauge in left forearm, using aseptic technique. ,using aseptic rb1 technique. Inserted by DELANEY Mckeon. 16:11 No provider procedures requiring assistance completed. Patient admitted, IV remains in rb1 place. Administered Medications: 09:50 Drug: D50W 50 ml Route: IVP; Site: right antecubital; iw 10:17 Follow up: Response: No adverse reaction; Blood sugar is elevated rb1 10:20 Drug: D50W 25 ml Route: IVP; Site: right antecubital; rb1 12:05 Drug: Magnesium Sulfate 2 grams Route: IVPB; Infused Over: 2 hrs; Site: left forearm; rb1 12:05 Drug: Pepcid 20 mg Route: IVP; Site: left forearm; rb1 19:17 Follow up: Response: No adverse reaction rb1 12:06 Drug: Rocephin 1 grams Route: IV; Rate: per protocol; Site: left forearm; rb1 13:32 Drug: D50W 25 ml Route: IVP; Site: right forearm; rb1 13:55 Drug: D5-1/2 NS 1000 ml Route: IV; Rate: 75 ml/hr; Site: left forearm; rb1 19:17 Follow up: IV Status: Infusion continued upon admission rb1 14:35 Drug: D50W 25 ml Route: IVP; Site: left forearm; rb1 15:45 Follow up: Response: No adverse reaction; Blood sugar is elevated rb1 19:18 Not Given (Physician Discretion): NS 0.9% 1000 ml IV at 75 ml/hr continuous rb1 Point of Care Testing: Blood Glucose: 10:17 Blood Glucose: 78 mg/dL; rb1 Ranges: Outcome: 11:18 Decision to Hospitalize by Provider. asha 16:11 Admitted to Med/surg accompanied by tech, via stretcher, room 202, with chart, Report rb1 called to AFUA Li 16:11 Condition: stable 16:11 Instructed on the need for admit. 16:12 Patient left the ED. rb1 Signatures: Deep Jeter MD MD cha Williams, Irene, RN RN iw Lucina Romero RN RN rb1 Corrections: (The following items were deleted from the chart) 10:24 09:45 BP 130 / 63; Pulse 123bpm; Resp 20bpm; Pulse Ox 100% 02 15% Non-rebreather mask; rb1 Temp 96.6F Temporal; rb1 10: 09:45 Acuity: JARRETT 3 rb1 iw 14:41 12:00 Reassessment: Patient appears in no apparent distress at this time. Patient rb1 and/or family updated on plan of care and expected duration. Pain level reassessed. Patient is alert, oriented x 3, equal unlabored respirations, skin warm/dry/pink. Patient denies pain at this time. rb1
--- NOTE | 2020-07-18 11:25 | RAD REPORT ---
EXAM DESCRIPTION: CT - C Spine Wo Con - 07/18/2020 11:16 am CLINICAL HISTORY: Neck pain, found unresponsive on the 4 COMPARISON: None. TECHNIQUE: Axial 2 mm thick images of the cervical spine were obtained with sagittal and coronal rec onstruction images generated and reviewed. All CT scans are performed using dose optimization technique as appropriate and may include automated exposure control or mA/KV adjustment according to patient size. FINDINGS: Cervical bodies are normal in height. There is anterior subluxation of C3 on C4 approximat erik 3 mm. This is secondary to advanced facet joint degenerative change. Reversal of the usual cervic al lordosis in the C4-C7 region is due to degenerative change. Advanced disc space narrowing, scleros is and endplate spurring at C5-6 and C6-7. Bony foraminal encroachment present at these levels. No fr acture or acute bone process. No pathologic finding. No paraspinal mass or hematoma. Central canal detail is inherently limited on CT imaging. IMPRESSION: Prominent cervical spine degenerative changes are present as detailed. No fracture or acute finding identifiable.
--- NOTE | 2020-07-18 11:30 | RAD REPORT ---
EXAM DESCRIPTION: CT - Chest Abd Pelvis Wo Con - 07/18/2020 11:16 am CLINICAL HISTORY: COUGH, fall, found unresponsive on the floor COMPARISON: No comparisons TECHNIQUE: Axial 5 millimeter thick images of the chest, abdomen and pelvis were obtained without IV contrast. No oral contrast administered. All CT scans are performed using dose optimization technique as appropriate and may include automated exposure control or mA/KV adjustment according to patient size. FINDINGS: Scarring changes are present mild for age. No pulmonary contusion or acute lung parenchyma l process. No pneumothorax is present. Small bilateral pleural effusions are present. No chest wall m ass or abnormal axillary lymphadenopathy seen. Mediastinal and hilar regions show no mass or lymphad enopathy. Cardiomegaly is present with no pericardial effusion. Dense coronary artery calcifications are present. Dense aortic valve calcifications are present. There are calcifications of the aorta. The liver, spleen and pancreas show no significant findings for non contrast imaging. Cholecystectom y clips are present. No biliary tree dilatation. No hydronephrosis or suspicious renal mass. Isodense masses and pyelonephritis cannot be excluded on non contrast imaging. No adrenal abnormalities. Urinary bladder is contracted around a Mckeon cathete r. Pelvic floor assessment is limited due to spray artifact from the hip prosthesis. Atrophic uterus is present. Ovaries are atrophic or absent. No ovarian based mass identifiable. Minimal amount of free fluid is present in the dependent portion of the pelvis. This is nonspecific. No free air or pneumatosis. No dilated bowel loops or focal ball bowel wall thickening. No free air, free fluid or inflammatory stranding. No hernia, mass or bulky lymphadenopathy. Disc and bony degenerative changes are present. Prominent facet degenerative change in the lower lumb ar spine. Dense aortic and mesenteric artery calcifications. IMPRESSION: Cardiomegaly is present with mild bilateral pleural effusions. No significant lung paren chymal process identifiable. Minimal amount of free fluid in the dependent portion of the pelvis, nonspecific with no other acute peritoneal or retroperitoneal process. Patient does have some fluid retention in the subcutaneous fatty tissues. CT abdomen and pelvis imaging shows no significant or suspicious finding.
[2020-07-18] MEDS ORDERED: FAMOTIDINE 20 MG/2 ML VIAL IV ONE (11:34)
[2020-07-18] MEDS ORDERED: CEFTRIAXONE/SWI 1gm 1 GM/10 ML SYR ONE (11:35)
[2020-07-18] MEDS ORDERED: Magnesium Sulfate 2gm IVPB 2 G/50 ML BAG IV ONE ×2 (11:35→14:00)
[2020-07-18] MEDS: D5 0.45 NS 1,000 ML IV SCH (12:00)
[2020-07-18 12:59] LABS: Urine Blood 1+ (NEG); Urine Glucose TRACE (NEG); Urine Protein 3+ (NEG)
[2020-07-18] MEDS ORDERED: D5 0.45 NS 1,000 ML IV ONE (14:05)
[2020-07-18] MEDS ORDERED: ACETAMINOPHEN 500 MG TAB PO PRN (16:33)
[2020-07-18] MEDS ORDERED: IPRATROPIUM BROM 0.5MG/2.5ML NEB PRN (16:33)
[2020-07-18] MEDS ORDERED: ONDANSETRON 4 MG/2 ML VIAL IV PRN (16:33)
[2020-07-18] MEDS ORDERED: ALBUTEROL 2.5 MG/3 ML NEB SOL NEB PRN (16:33)
[2020-07-18 17:11] VITALS: BMI 25.2
[2020-07-18] MEDS: FUROSEMIDE 20 MG/ 2ML VIAL IV SCH (17:11)
[2020-07-18] MEDS ORDERED: INFLUENZA VACCINE (for 3y+) 0.5 ML DOSE IMVAC ONE (20:00)
[2020-07-18] MEDS ORDERED: PNEUMOCOCCAL VACCINE 0.5 ML IMVAC ONE (20:00)
[2020-07-18] MEDS ORDERED: ONDANSETRON 4 MG (ODT) TAB PO PRN (20:36)
[2020-07-18] MEDS ORDERED: FAMOTIDINE 20 MG/2 ML VIAL IV SCH (21:00)
[2020-07-18] MEDS: APIXABAN 5 MG TABLET PO SCH (21:43)
[2020-07-18] MEDS: AMIODARONE HCL 200 MG TAB PO SCH (21:43)
[2020-07-19] MEDS: D5 0.45 NS 1,000 ML IV SCH ×3 (01:20→16:37)
[2020-07-19 06:06] LABS: Absolute Lymphocytes (CBC) 0.7 K/uL (0.7-4.9); Basophils % 0.8 % (0-1.3); Hematocrit 35.9 % (36.0-45.0); Lymphocytes % 9.4 % (15.3-44.8); MPV 9.8 fL (7.6-11.3); RBC Red Blood Cell Count 4.45 M/uL (3.86-4.86)
[2020-07-19 06:34] LABS: Potassium 3.6 mmol/L (3.5-5.1)
--- NOTE | 2020-07-19 07:21 | EKG ---
Test Date: 2020-07-18 Test Time: 10:16:05 Director Of Ancillary Services: HELEN MEASUREMENT RESULTS: Intervals: Rate: 116 CO: QRSD: 114 QT: 438 QTc: 608 [place]: P: CO: QRS: 50 T: -86 INTERPRETIVE STATEMENTS: Atrial fibrillation with rapid ventricular response with premature ventricular or aberrantly conducted complexes Anteroseptal infarct, age undetermined Abnormal ECG Compared to ECG 05/20/2020 22:45:31 Right-axis deviation no longer present Incomplete right bundle-branch block no longer present Myocardial infarct finding still present Electronically Signed On 07-19-20 07:19:42 CDT by Jackson Cuellar
[2020-07-19] MEDS: APIXABAN 5 MG TABLET PO SCH ×2 (08:56→21:26)
[2020-07-19] MEDS: PRIMIDONE 50 MG TAB PO SCH (08:56)
[2020-07-19] MEDS: SPIRONOLACTONE 25 MG TABLET PO SCH (08:56)
[2020-07-19] MEDS: FLUOXETINE 20 MG CAP PO SCH (08:57)
[2020-07-19] MEDS: FAMOTIDINE 20 MG/2 ML VIAL IV SCH (08:57)
[2020-07-19] MEDS: FUROSEMIDE 20 MG/ 2ML VIAL IV SCH ×2 (08:57→16:37)
[2020-07-19] MEDS: FENOFIBRATE 48 MG TAB PO SCH (09:00)
[2020-07-19] MEDS ORDERED: FENOFIBRATE 48 MG TAB PO SCH (09:00)
--- NOTE | 2020-07-19 09:43 | RAD REPORT ---
EXAM DESCRIPTION: RAD - Chest Single View - 07/19/2020 5:46 am CLINICAL HISTORY: Chest Pain Chest pain. COMPARISON: Chest Single View dated 07/18/2020; Chest Single View dated 05/20/2020; Chest Single View dated 03/29/2020; Chest Single View dated 06/14/2019 FINDINGS: Portable technique limits examination quality. The lungs are grossly clear. The heart is moderately enlarged in size. Sternotomy wires present. IMPRESSION: No acute intrathoracic process suspected.
--- NOTE | 2020-07-19 12:59 | EKG ---
Test Date: 2020-07-19 Test Time: 08:34:22 Blood Bank Manager: STANLEY MEASUREMENT RESULTS: Intervals: Rate: 76 MO: QRSD: 104 QT: 412 QTc: 463 [place]: P: MO: QRS: 72 T: 166 INTERPRETIVE STATEMENTS: Atrial fibrillation Anteroseptal infarct, age undetermined Abnormal ECG Compared to ECG 07/18/2020 10:16:05 Ventricular premature complex(es) no longer present Myocardial infarct finding still present Electronically Signed On 07-19-20 12:59:08 CDT by Jackson Cuellar
--- NOTE | 2020-07-19 13:46 | ECHO ---
HEIGHT: 5 ft 6 in WEIGHT: 156 lb 0 oz DATE OF STUDY: 07/19/[address]: Deep Jeter MD 2-DIMENSIONAL: YES M.MODE: YES DOPPLER: YES COLOR FLOW: YES TDS: PORTABLE: DEFINITY: BUBBLE STUDY: DIAGNOSIS: CARDIOMEGALY CARDIAC HISTORY: CATHERIZATION: YES SURGERY: YES PROSTHETIC VALVE: AORTIC VALVE PACEMAKER: MEASUREMENTS (cm) DIASTOLIC (NORMALS) SYSTOLIC (NORMALS) IVSd 1.2 (0.6-1.2) LA Diam 4.7 (1.9-4.0) LVEF 21% LVIDd 5.2 (3.5-5.7) LVIDs 4.7 (2.0-3.5) %FS 10% LVPWd 1.1 (0.6-1.2) Ao Diam 2.5 (2.0-3.7) 2 DIMENSIONAL ASSESSMENT: RIGHT ATRIUM: NORMAL LEFT ATRIUM: DILATED RIGHT VENTRICLE: NORMAL LEFT VENTRICLE: NORMAL SIZE TRICUSPID VALVE: NORMAL MITRAL VALVE: MITRAL ANNULAR CALCIFICATION PULMONIC VALVE: NORMAL AORTIC VALVE: SCLEROSIS PERICARDIAL EFFUSION: NONE AORTIC ROOT: NORMAL LEFT VENTRICULAR WALL MOTION: SEVERE GLOBAL HYPOKINESIS DOPPLER/COLOR FLOW: MILD TRICUSPID AND MITRAL REGURGITATION COMMENTS: SEVERE GLOBAL HYPOKINESIS. MILD MITRAL AND TRICUSPID REGURGITATION. EJECTION FRACTION 20-25%. MITRAL ANNULAR CALCIFICATION. AORTIC SCLEROSIS. TECHNOLOGIST: FADI NORTON
[2020-07-19] MEDS: AMIODARONE HCL 200 MG TAB PO SCH (21:26)
--- NOTE | 2020-07-19 21:43 | HP ---
Date of Admission: 07/18/2020 History Of Present Illness: The patient is an 79 year female who presented to the emergency room wit h a complaint of being disoriented and not knowing her surroundings. She had acute mental status asha nge. Her blood sugar was found in the emergency room to be in the 40s and she was admitted for acute mental status change with hypoglycemia. The patient had no other complaints. Review of Systems: Cardiovascular: No complaints. Gastrointestinal: No complaints. Genitourinary: No complaints. Skeletomuscular: No complaints. Neurological: As above. Past Medical History: 1.Type 2 diabetes. 2.Hypertension. 3.Hyperlipidemia. 4.Coronary artery disease. 5.Chronic systolic congestive heart failure. 6.Gastroesophageal reflux disease. 7.Chronic kidney disease stage 4. 8.Atrial fibrillation. Social History: No smoking, alcohol, or drug abuse history. Family History: Noncontributing. Medications: Hydralazine 100 mg p.o. daily, Tresiba 55 units daily, fluoxetine 20 mg p.o. daily, Darvin uvia 50 mg p.o. daily, fenofibrate 134 mg p.o. daily, primidone 50 mg p.o. daily, carvedilol 6.25 mg p.o. b.i.d., alprazolam 0.25 mg p.o. b.i.d. p.r.n., alendronate 70 mg p.o. daily, isosorbide dinitrat e 20 mg p.o. t.i.d., atorvastatin 80 mg p.o. daily, Novolin R before meals by sliding scale, torsemid e 10 mg p.o. b.i.d., Eliquis 2.5 mg p.o. b.i.d., furosemide 40 mg p.o. daily. Allergies: BACTRIM, CODEINE, MORPHINE, AND PENICILLINS. Physical Examination: Vital Signs: Blood pressure 140/63, pulse 75, temperature 97.6. Heart: Regular rate and rhythm. Chest: Clear to auscultation. Abdomen: Soft, nontender, no hepatosplenomegaly. Bowel sounds are normoactive. Extremities: No edema. No cyanosis. Peripheral pulses are felt. Neurological: By the time I interviewed the patient, she was alert, she knew she was in the hospital and knew my name. She answered questions properly. She was given in the emergency room glucose. Imaging Data: The patient's chest x-ray, no acute pathology. Laboratory Data: CBC noted hemoglobin 11.6, hematocrit 35.9, platelets 161. Chemistry; sodium 134, potassium 3.6, chloride 96, bicarb 30, BUN 29, creatinine 1.95, GFR is 25, glucose at the presentatio n to the emergency room was 43. Blood sugar fingersticks are noted. BNP was 51708. Assessment/plan: Acute mental status change with hypoglycemia. The patient is being admitted. She is put on D5 half-normal saline, IV fluid, and we will monitor her blood sugar numbers, and give her glucose amps as needed, we will hold on her insulin and Januvia. We will continue the rest of her ho me medicines for chronic medical illnesses. We have asked Cardiology to see the patient because of t he increased BNP and because of a history of atherosclerotic heart disease. We will continue the res t of her home medicines for chronic medical illnesses. The patient will ask also Industrial Sociologist for discharge planning as she lives alone. At the same time, the patient had today few bowel motions wh ile checking her stools for Clostridium difficile and white BCs and will monitor her electrolytes. Idalmis urias orders for details. MFS/MODL Voice ID: [id number]
[2020-07-20] MEDS: D5 0.45 NS 1,000 ML IV SCH ×2 (05:03→17:29)
[2020-07-20 06:28] LABS: Absolute Lymphocytes (CBC) 0.7 K/uL (0.7-4.9); Basophils % 0.7 % (0-1.3); Hematocrit 36.1 % (36.0-45.0); Lymphocytes % 10.4 % (15.3-44.8); MPV 9.8 fL (7.6-11.3); RBC Red Blood Cell Count 4.42 M/uL (3.86-4.86)
--- NOTE | 2020-07-20 07:08 | CON ---
Date of Consultation: 07/19/2020 Reason For Consultation: Elevated troponin. History Of Present Illness: Ms. Avila is an 79-year-old woman who has a history of CABG, aortic valve replacement, diabetes, hypertension, dyslipidemia, chronic congestive heart failure that is deangelo stolic, chronic atrial fibrillation. She follows up with Dr. Delgado, came in with altered mental stat us, cardiomegaly, congestive heart failure, and elevated troponin. The patient reported no chest dion n, PND, orthopnea, pedal edema, palpitation, or syncope. Denied any fever or chills. Her main compl aint was shortness of breath. Past Medical History: As stated above. Allergies: SHE IS ALLERGIC TO PENICILLIN AND MORPHINE AND CODEINE. Review of Systems: Negative. Social History: Negative. Family History: Negative. Medications: Include Januvia, TriCor, amiodarone, Eliquis, Xanax, and Aldactone. Physical Examination: General: She was in no acute distress. She was in atrial fibrillation at a rate of 74. HEENT: Negative. Neck: Supple without any bruit, lymphadenopathy, JVD, or thyromegaly. Chest: Reveals some bilateral rales both bases. Cardiac: Revealed atrial fibrillation. No murmurs, gallops, or rubs. Abdomen: Benign. Extremities: Revealed trace edema. Skin: Dry and intact. Neurological: She was alert, oriented to name and place. Pulses were present distally bilaterally. Diagnostic Data: EKG showed atrial fibrillation. Creatinine was 2.18. Magnesium was 1.2. Troponin is 0.12. BNP was 17,721. Impression And Plan: 1.Acute on chronic diastolic congestive heart failure. The patient should remain on her home medica tions. She is on Lasix IV 20 b.i.d. and she is diuresing well and is improving. I would continue he r home regimen, include p.o. Lasix at home. She can follow up with Dr. Delgado at her convenience. 2.Coronary artery disease, status post coronary artery bypass graft, seems to be stable. I think he r elevated troponin is secondary to renal failure and congestive heart failure. 3.Renal insufficiency. She needs to have a nephrology consult or follow up further with Dr. Dye . 4.Low magnesium that needs to be supplemented. 5.Chronic atrial fibrillation. She is on amiodarone and Eliquis. We need to continue that. 6.History of hypertension, well controlled. 7.Dyslipidemia, well controlled. CAROLEE/LC Voice ID: [id number] Report ID: [id number]
[2020-07-20 08:27] LABS: Anisocytosis 1+; Blood Morphology Comment NOTED (NOT SEEN); Ovalocytes 1+; Platelet Estimate ADEQ; Poikilocytosis 1+
[2020-07-20] MEDS: FLUOXETINE 20 MG CAP PO SCH (09:39)
[2020-07-20] MEDS: APIXABAN 5 MG TABLET PO SCH ×2 (09:39→21:12)
[2020-07-20] MEDS: FAMOTIDINE 20 MG/2 ML VIAL IV SCH (09:39)
[2020-07-20] MEDS: PRIMIDONE 50 MG TAB PO SCH (09:40)
[2020-07-20] MEDS: FUROSEMIDE 20 MG/ 2ML VIAL IV SCH (09:40)
[2020-07-20] MEDS: FENOFIBRATE 48 MG TAB PO SCH (09:41)
[2020-07-20 12:12] LABS: C.diff Antigen/Toxin Ag neg : Tox neg (NEG : NEG)
[2020-07-20] MEDS: ALPRAZOLAM 0.25 MG TABLET PO PRN (21:12)
[2020-07-20] MEDS: AMIODARONE HCL 200 MG TAB PO SCH (21:12)
[2020-07-21] MEDS: D5 0.45 NS 1,000 ML IV SCH ×2 (06:19→20:41)
[2020-07-21] MEDS: FAMOTIDINE 20 MG/2 ML VIAL IV SCH (09:46)
[2020-07-21] MEDS: FUROSEMIDE 20 MG TABLET PO SCH (09:46)
[2020-07-21] MEDS: SPIRONOLACTONE 25 MG TABLET PO SCH (09:46)
[2020-07-21] MEDS: APIXABAN 5 MG TABLET PO SCH ×2 (09:46→20:41)
[2020-07-21] MEDS: PRIMIDONE 50 MG TAB PO SCH (09:47)
[2020-07-21] MEDS: FLUOXETINE 20 MG CAP PO SCH (09:50)
[2020-07-21] MEDS: FENOFIBRATE 48 MG TAB PO SCH (09:50)
--- NOTE | 2020-07-21 12:09 | PN ---
Subjective: The patient today has no new complaint. She is alert and oriented. Has no new complain ts. Objective: Vital Signs: Blood pressure , pulse 72, temperature 97.6, room air pulse oxime try 96%. Heart: Regular rate and rhythm. Chest: Clear to auscultation. Abdomen: Soft, nontender. Neurological: Alert, oriented, intact. Laboratory Data: Hemoglobin 11.8, hematocrit 36.1, platelets 140, white cell count 7.1. Blood sugar fingersticks noted in the 200s. Microbiology, no growth to date. Assessment And Plan: 1.Acute mental status change, resolving. Patient has resolved from that standpoint. 2.Hypoglycemia, resolved. 3.Clinically, the patient is stable as seen by Cardiology for her atrial fibrillation and congestive heart failure. Recommended IV Lasix 20 b.i.d. Also, Radioisotope Technologist have seen the patient and are arranging for her to be discharged to a [facility]. Meanwhile, we will continue current treatment. She is clinically stable with her chronic medical illnesses. MFS/MODL Voice ID: [id number] Report ID: [id number]
[2020-07-21] MEDS: ALPRAZOLAM 0.25 MG TABLET PO PRN (20:42)
[2020-07-21] MEDS: AMIODARONE HCL 200 MG TAB PO SCH (20:42)
[2020-07-22 06:21] LABS: Absolute Lymphocytes (CBC) 0.8 K/uL (0.7-4.9); Basophils % 0.9 % (0-1.3); Hematocrit 39.1 % (36.0-45.0); Lymphocytes % 11.1 % (15.3-44.8); MPV 9.9 fL (7.6-11.3); RBC Red Blood Cell Count 4.79 M/uL (3.86-4.86)
[2020-07-22 06:42] LABS: Potassium 4.2 mmol/L (3.5-5.1)
[2020-07-22] MEDS: FAMOTIDINE 20 MG/2 ML VIAL IV SCH (09:18)
[2020-07-22] MEDS: FENOFIBRATE 48 MG TAB PO SCH (09:18)
[2020-07-22] MEDS: D5 0.45 NS 1,000 ML IV SCH (09:19)
[2020-07-22] MEDS: FLUOXETINE 20 MG CAP PO SCH (09:19)
[2020-07-22] MEDS: APIXABAN 5 MG TABLET PO SCH ×2 (09:19→20:43)
[2020-07-22] MEDS: PRIMIDONE 50 MG TAB PO SCH (09:19)
[2020-07-22] MEDS: FUROSEMIDE 20 MG TABLET PO SCH (09:19)
--- NOTE | 2020-07-22 13:55 | PN ---
Subjective: The patient is doing stable. Has no new complaint. Objective: Vital Signs: Blood pressure 134/80, pulse 70, temperature 98.5, blood sugar fingersticks 175, 163, and 161. Heart: Regular rate and rhythm. Chest: Clear to auscultation. Abdomen: Soft, benign. Neurological: Alert, oriented x4. Grossly intact. Extremities: No edema. No cyanosis. Cardiac: Echo showed left ventricular ejection fraction at 21%. Laboratory Data: CBC noted. Chemistry; BUN 38, creatinine 2.24, GFR at 21. Assessment And Plan: 1.Acute mental status change and hypoglycemia, resolved. 2.Acute systolic congestive heart failure on top of chronic. We have changed the patient to oral La six after being diuresed. 3.Chronic renal insufficiency stage IV from diabetes, clinically stable. 4.Type 2 diabetes mellitus. We will keep the patient for now off her diabetic medications. 5.Pending social service, working on transferring the patient to a halfway. She also is going to need physical therapy before ambulation. Look orders for details. MFS/MODL Voice ID: [id number] Report ID: [id number]
[2020-07-22] MEDS: AMIODARONE HCL 200 MG TAB PO SCH (20:43)
[2020-07-22] MEDS ORDERED: D50W 25 GM/50 ML SYRINGE/VIAL IV PRN (20:50)
[2020-07-22] MEDS ORDERED: GLUCAGON 1 MG/VIAL IM PRN (20:50)
[2020-07-22] MEDS: INSULIN -REGULAR HUMAN 50 UNIT/0.5 ML ML SQ SCH (21:12)
[2020-07-23 06:43] LABS: Absolute Lymphocytes (CBC) 0.8 K/uL (0.7-4.9); Basophils % 1.3 % (0-1.3); Hematocrit 38.2 % (36.0-45.0); Lymphocytes % 11.4 % (15.3-44.8); MPV 9.5 fL (7.6-11.3); RBC Red Blood Cell Count 4.65 M/uL (3.86-4.86)
[2020-07-23] MEDS: INSULIN -REGULAR HUMAN 50 UNIT/0.5 ML ML SQ SCH ×4 (07:30→21:18)
[2020-07-23 07:46] LABS: Anisocytosis 1+; Blood Morphology Comment NOTED (NOT SEEN); Platelet Estimate ADEQ; White Blood Cell Scan OK (OK)
[2020-07-23] MEDS: FAMOTIDINE 20 MG/2 ML VIAL IV SCH (09:00)
[2020-07-23] MEDS: PRIMIDONE 50 MG TAB PO SCH (09:00)
[2020-07-23] MEDS: FENOFIBRATE 48 MG TAB PO SCH (09:00)
[2020-07-23] MEDS: SPIRONOLACTONE 25 MG TABLET PO SCH (09:00)
[2020-07-23] MEDS: FUROSEMIDE 20 MG TABLET PO SCH (09:00)
[2020-07-23] MEDS: APIXABAN 5 MG TABLET PO SCH ×2 (09:00→21:17)
[2020-07-23] MEDS: FLUOXETINE 20 MG CAP PO SCH (09:01)
--- NOTE | 2020-07-23 12:59 | PN ---
Subjective: The patient is doing well and stable. Objective: Vital Signs: Blood pressure 124/62, pulse 73, temperature 98.1. Heart: Regular rate and rhythm. Chest: Clear to auscultation. Abdomen: Soft, benign. Neurological: The patient is alert and oriented x4. Grossly intact. Laboratory Data: CBC noted. Chemistry; sodium 134, BUN 38, creatinine 2.09, GFR of 23. Blood sugar fingersticks noted, all above 100. Assessment And Plan: 1.Acute mental status change and confusion, resolved. 2.Congestive heart failure, clinically stable. 3.Chronic renal insufficiency, slightly improving. 4.The patient has weakness and fatigue from her general condition. Pending transfer to long-term with PT. 5.Hypoglycemia, resolved. For now, we will keep the patient on mild sliding scale. Look orders for details. MFS/MODL Voice ID: [id number] Report ID: [id number]
[2020-07-23] MEDS: AMIODARONE HCL 200 MG TAB PO SCH (21:18)
[2020-07-23] MEDS: ALPRAZOLAM 0.25 MG TABLET PO PRN (21:18)
[2020-07-24] MEDS: INSULIN -REGULAR HUMAN 50 UNIT/0.5 ML ML SQ SCH ×3 (07:30→16:28)
[2020-07-24] MEDS: FENOFIBRATE 48 MG TAB PO SCH (09:07)
[2020-07-24] MEDS: FUROSEMIDE 20 MG TABLET PO SCH (09:08)
[2020-07-24] MEDS: FAMOTIDINE 20 MG/2 ML VIAL IV SCH (09:08)
[2020-07-24] MEDS: FLUOXETINE 20 MG CAP PO SCH (09:08)
[2020-07-24] MEDS: PRIMIDONE 50 MG TAB PO SCH (09:08)
[2020-07-24] MEDS: APIXABAN 5 MG TABLET PO SCH (09:08)
[2020-07-24 09:39] VITALS: O2SAT 96
[2020-07-24 16:33] VITALS: BP 147/75; TEMP 97.8
[2020-07-24] MEDS ORDERED: NYSTATIN 100MU/GM CREAM 15GM TOP SCH (21:00)
== END 2020-07-24 20:34 | DRG 637 ==
LOC: ER 09:46 → ERHOLD 11:24 → 2ND 15:58
PROVIDERS: ADMIT Internal Medicine; ATTEND Internal Medicine
DX: E11.649 Type 2 diabetes mellitus with hypoglycemia without coma (principal); I50.23 Acute on chronic systolic (congestive) heart failure; I13.0 Hypertensive heart and chronic kidney disease with heart failure and stage 1 through stage 4 chronic kidney disease, or unspecified chronic kidney disease; I48.20 Chronic atrial fibrillation, unspecified; N18.4 Chronic kidney disease, stage 4 (severe); E11.22 Type 2 diabetes mellitus with diabetic chronic kidney disease; E78.5 Hyperlipidemia, unspecified; K21.9 Gastro-esophageal reflux disease without esophagitis; I25.10 Atherosclerotic heart disease of native coronary artery without angina pectoris; N28.9 Disorder of kidney and ureter, unspecified; I25.2 Old myocardial infarction; W18.30XA Fall on same level, unspecified, initial encounter; Z88.0 Allergy status to penicillin; Z79.02 Long term (current) use of antithrombotics/antiplatelets; Z95.2 Presence of prosthetic heart valve; Z95.1 Presence of aortocoronary bypass graft; Z79.899 Other long term (current) drug therapy; Z88.5 Allergy status to narcotic agent; Z20.828 Contact with and (suspected) exposure to other viral communicable diseases; Z23 Encounter for immunization
CPT/HCPCS: 36415; 70450; 71045; 71250; 72125; 74176; 80048; 80076; 81003; 82947; 83605; 83735; 83880; 84484; 85025; 85610; 87040; 87086; 87088; 87324; 87449; 90471; 90732; 93005; 93306; 97116; 97161; 97530; 99285; J0696; J1940; J2405; J3475; J7030; J7799; Q2035; U0003

== ENCOUNTER 2020-09-07 08:53 | Inpatient (IN) | payer OTHER ==
--- OUTSIDE RECORDS SUMMARY | 2020-09-07 08:57 | XMS REPORT | Clinical Summary ---
:1940 Author Organization [facility] Address [address] [place] [address] Care Team Providers Name Role Phone Unavailable Primary Care Provider Unavailable Allergies Not on File Medications Not on file Active Problems Not on file Encounters Date Type Specialty Care Team Description 03/30/2020 Lab Requisition Lab after 09/07/2019 Social History Tobacco Use Types Packs/Day Years Used Date Never Assessed Sex Assigned at Date Recorded Not on file Last Filed Vital Signs Not on file Plan of Treatment Not on file Procedures Procedure Name Priority Date/Time Associated Diagnosis Comme nts SARS-COV2/RT-PCR Routine 03/29/2020 9:15 PM Resu lts for this ([facility]) CDT procedure are in the results section. after 09/07/2019 Results SARS-CoV2/RT-PCR ([facility]) (03/29/2020 9:15 PM CDT) SARS-COV2/RT-PCR Negative Not Detected, [facility] Negative [facility] SARS-COV-2 [facility] PERFORMING LAB [facility] Specimen Other - Nasopharyngeal wall structure (b cody structure) Narrative Performed At Negative result for this test determines that [facility] SARS-CoV-2 RNA was not present in the [...] the Act. Fact Sheet for Healthcare Providers: https://www.[employer]/sites/default/files/pro duct/documents/Fact_Sheet_HC_Providers_Lyra_SA RS-CoV-2.pdf Fact Sheet for Healthcare Patients: https://www.[employer]/sites/default/files/pro duct/documents/Fact_Sheet_Patients_Lyra_SARS-C oV-2.pdf Performing Laboratory: [address] [address] Performing Organization Address City/State/Zipcode Phone Number [address] [address] CENTER after 09/07/2019
--- OUTSIDE RECORDS SUMMARY | 2020-09-07 08:57 | XMS REPORT | Clinical Summary ---
:1940 Author Organization [facility] Address [address] [place] [address] Care Team Providers Name Role Phone Asked, [...] 20 ( Stop Taking at tablet Discharge) dextrose 50% Infuse 50 mL (25 0 [...] for 30 days. furosemide Take 1 tablet (40 60 tablet 0 07/02/20 E xpired (LASIX) 40 mg mg total) by 0 20 tablet mouth 2 (two) times a day for 30 days. glucagon 1 mg/mL Inject 1 mg into 0 recon soln the shoulder, 0 20 thigh, or buttocks every 15 (fifteen) minutes as needed (if patient NPO, unable to swallow safely with no IV access.) for up to 30 days. insulin lispro Inject 0-12 Units 10 mL 12 0 (ADMELOG) 100 under the skin 3 0 20 unit/mL injection (three) times a day with meals for 30 days. insulin NPH Inject 20 Units 0 07/02/20 Ex pired (HumuLIN-N) 100 under the skin 0 20 unit/mL injection every 12 (twelve) hours for 30 days. simethicone Chew 1 tablet (80 0 07/02/20 (MYLICON) 80 MG mg total) every 6 0 20 chewable tablet (six) hours as needed for flatulence for up to 30 days. sod phos di, Take 2 tablets by 0 06/02/20 mono-K phos mono mouth once for 1 0 20 (PHOSPHA 250 dose. NEUTRAL) 250 mg tablet per tablet pantoprazole Take 1 tablet (40 30 tablet 0 07/02/20 (Protonix) 40 MG mg total) by 0 20 EC tablet [...] hr capsule Err or) diphenhydramine-z Apply topically 3 28.4 g 0 06/22 inc acetate 2-0.1 (three) times a 0 20 % cream day as needed for itching for up to 30 days. Active Problems Problem Noted Date Nausea and vomiting 05/21/2020 Cardiogenic shock 06/21/2019 Atrial fibrillation 06/15/2019 Essential hypertension 06/15/2019 Type 2 diabetes mellitus 06/15/2019 Encounters Date Type Specialty Care Team Description 05/21/2020 - Hospital Encounter General Internal Balbir, Cardi ogenic shock (HCC) (Primary Dx); 06/06/2020 Medicine Elvin O. Sr., Paroxysmal at rial fibrillation (HCC); Essential hyper tension; Type 2 diabetes mellitus with hyperosmolarity without coma, with long-term current use of insulin (HCC); Nausea and vomi ting, intractability of vomiting not specified, unspecified vomiting type; Longstanding pe rsistent atrial fibrillation; Non-intractable vomiting with nausea, unspecified vomiting type 05/21/2020 Travel after 09/07/2019 Immunizations Name Administration Dates Next Due FLUCELVAX [...] DIABETIC FOOT EXAM 1950 URINE MICROALBUMIN 1948 COVID-19 VACCINE (#1) 1954 SHINGLES VACCINES (#1) 1988 65+ PNEUMOCOCCAL VACCINE (1 of 1 - PPSV23) 2003 INFLUENZA VACCINE 04/22/2020 06/24/2019 Implants Implanted Type Area Glass Installer Device Shelf Model / Identifier Expiration Serial [...] procedure are i n the results section. [place] INSERT Routine 05/22/2020 5:27 Paroxysmal atrial Result [...] Cardiogenic shock the result s (HCC) section. [place] INSERT NON-TUNNEL Routine 05/21/2020 11:30 Paroxysmal atria [...] are i n the results section. after 09/07/2019 Results Troponin (06/06/2020 1:00 PM CDT)Only the [...] 0.020 ng/mL Specimen Blood Performing Organization Address City/State/ZIP Code Phon e Number [facility] DEPARTMENT OF PATHOLOGY AND [address] [place], [place] [address] [address] [address] POC glucose (06/06/2020 11:36 AM CDT)Only the most recent of129 resultswithin the time period is included. Pathologist [facility] nature POC glucose 213 (H) 65 - 99 mg/dL [facility] Comment: HOSPITAL Shipyard Painter Apprentice Name: Brennon Lynn Device ID: [id number] Chartable: [facility] Notified RN Specimen Blood Performing Organization Address City/[facility] Code Phon e Number [facility] DEPARTMENT OF PATHOLOGY AND [address] [place] [address] [address] Estimated GFR (06/05/2020 4:00 AM CDT)Only the most recent of23 resultswithin the time period is included. Pathologist [facility] Estimated GFR 27 (A) mL/min/1.73 [facility] Comment: m2 HOSPITAL Catergory Units Interpretation G1 [...] published in 2014. Specimen Performing Organization Address City/[facility] Phon e Number [facility] DEPARTMENT OF PATHOLOGY AND [address] [place] [address] [address] CBC with platelet and differential (06/05/2020 4:00 AM CDT)Only the most recent of14 resultswithin the time period is included. [facility] WBC 8.46 4.50 - 11.00 [facility] k/uL [facility] RBC 3.92 (L) 4.20 - 5.50 [facility] m/uL [facility] HGB 10.5 (L) 12.0 - 16.0 [facility] g/dL [facility] HCT 32.6 (L) 37.0 - 47.0 % [facility] MCV 83.2 82.0 - 100.0 [facility] MCH 26.8 (L) 27.0 - 34.0 pg [facility] MCHC 32.2 31.0 - 37.0 [facility] RDW - SD 50.7 37.0 - 55.0 fL [facility] MPV 11.5 8.8 - 13.2 fL [facility] Platelet count 299 150 - 400 k/uL [facility] Nucleated RBC 0.00 /100 WBC [facility] Neutrophils 76.2 (H) 39.0 - 69.0 % [facility] Lymphocytes 10.2 (L) 25.0 - 45.0 % [facility] Monocytes 8.4 0.0 - 10.0 % [facility] Eosinophils 3.8 0.0 - 5.0 % [facility] Basophils 0.8 0.0 - 1.0 % [facility] Immature granulocytes 0.6Comment: 0.0 - 1.0 % [facility] "Immature HOSPITAL granulocytes" (promyelocytes , myelocytes, metamyelocytes ) Specimen Blood Performing Organization Address City/[facility] Phon e Number [facility] DEPARTMENT OF PATHOLOGY AND [address] [place] [phone] Phosphorus level (06/05/2020 4:00 AM CDT)Only the most recent of16 results within the time period is included. Pathologist Sig nature Phosphorus 2.9 2.4 - 4.5 mg/dL [facility] L Specimen Blood Performing Organization Address City/[facility] Phon e Number [facility] DEPARTMENT OF PATHOLOGY AND [address] [place] [address] [phone] [address] Magnesium level (06/05/2020 4:00 AM CDT)Only the most recent of19 resultswithin the time period is included. Pathologist Sig nature Magnesium 1.9 1.6 - 2.4 mg/dL [facility] L Specimen Blood Performing Organization Address City/[facility] Phon e Number [facility] DEPARTMENT OF PATHOLOGY AND [address] [place] [address] [phone] [address] Comprehensive metabolic panel (06/05/2020 4:00 AM CDT)Only the most recent of3 resultswithin the time period is included. Sodium 140 135 - 148 [facility] mEq/L [facility] Potassium 4.2 3.5 - 5.0 [facility] mEq/L [facility] Chloride 93 (L) 98 - 112 [facility] mEq/L [facility] CO2 30 24 - 31 mEq/L [facility] Anion gap 17@ANIO (H) 7 - 15 mEq/L [facility] BUN 77 (H) 8 - 23 mg/dL [facility] Creatinine 1.74 (H) 0.50 - 0.90 [facility] mg/dL HOSPITAL Glucose 88 65 - 99 mg/dL [facility] Calcium 10.0 8.8 - 10.2 [facility] mg/dL HOSPITAL Protein 7.4 6.3 - 8.3 [facility] Comment: g/dL [facility] [place] 4.6-7.0 g/dL 1 week 4.4-7.6 g/dL 7 months-1year 5.1-7.3 g/dL 1-2 years 5.6-7.5 g/dL >3 years 6.0-8.0 g/dL 18-150 6.3-8.3 g/dL Albumin 4.4 3.5 - 5.0 [facility] g/dL [facility] A/G ratio 1.5 0.7 - 3.8 [facility] Alkaline phosphatase 98 35 - 104 U/L [facility] AST 47 (H) 10 - 35 U/L [facility] ALT 62 (H) 5 - 50 U/L [facility] Total bilirubin 1.3 (H) 0.0 - 1.2 [facility] mg/dL [facility] Specimen Performing Organization Address City/State/ZIP Code Phon e Number [facility] DEPARTMENT OF PATHOLOGY AND [address] [place] [phone] GENOM[address] [address] Basic metabolic panel (06/04/2020 5:00 AM CDT)Only the most recent of19 results within the time period is included. Pathologist Sig nature Sodium 135 135 - 148 mEq/L [facility] Potassium 4.6 3.5 - 5.0 mEq/L [facility] Chloride 90 (L) 98 - 112 mEq/L [facility] CO2 26 24 - 31 mEq/L [facility] Anion gap 19@ANIO (H) 7 - 15 mEq/L [facility] BUN 84 (H) 8 - 23 mg/dL [facility] Creatinine 1.68 (H) 0.50 - 0.90 mg/dL [facility] Glucose 96 65 - 99 mg/dL [facility] Calcium 9.6 8.8 - 10.2 mg/dL [facility] Specimen Blood Performing Organization Address City/[facility] Phon e Number [facility] DEPARTMENT OF PATHOLOGY AND [address] [place] [address] [phone] [address] Digoxin level (06/03/2020 4:00 AM CDT)Only the most recent of5 resultswithin the time period is included. Digoxin 1.0 0.8 - 2.0 ng/mL [facility] Comment: HOSPITAL For valid Digoxin results, at least 6 hours should anthony pse between time of last dose and collection of blood. Otherwise, result may be false high. Therapeutic Range: 0.8 - 2.0 ng/mL Specimen Blood Performing Organization Address [facility] Phon e Number [facility] DEPARTMENT OF PATHOLOGY AND [address] [place], [place] [phone] [address] [address] Hepatic function panel (06/03/2020 4:00 AM CDT)Only the most recent of12 resultswithin the time period is included. Albumin 3.9 3.5 - 5.0 [facility] g/dL [facility] Total bilirubin 1.3 (H) 0.0 - 1.2 [facility] mg/dL [facility] Bilirubin direct 0.7 (H) 0.0 - 0.3 [facility] mg/dL [facility] Alkaline phosphatase 81 35 - 104 U/L [facility] Protein 6.5 6.3 - 8.3 [facility] Comment: g/dL [facility] [place] 4.6-7.0 g/dL 1 week 4.4-7.6 g/dL 7 months-1year 5.1-7.3 g/dL 1-2 years 5.6-7.5 g/dL >3 years 6.0-8.0 g/dL 18-150 6.3-8.3 g/dL ALT 68 (H) 5 - 50 U/L [facility] AST 57 (H) 10 - 35 U/L [facility] Specimen Blood Performing Organization Address City/[facility] Phon e Number [facility] DEPARTMENT OF PATHOLOGY AND [address] [place], [place] [phone] [address] [address] Partial thromboplastin time, activated (06/02/2020 4:40 AM CDT)Only the most recent of26 resultswithin the time period is included. PTT 30.7 23.0 - 36.0 [facility] Comment: [facility] PTT therapeutic range for unfractionated heparin is 61.0-112.0 seconds which corresponds to Anti-Xa 0.3-0.7 U/ml. Specimen Blood Performing Organization Address City/[facility] Phon e Number [facility] DEPARTMENT OF PATHOLOGY AND [address] [place] [address] [address] Urinalysis screen and microscopy, with reflex to culture (06/02/2020 2:00 AM CDT)Only the most recent of2 resultswithin the time period is included. Specimen site Random void [facility] Color, UA Straw [facility] Appearance, UA Clear [facility] Specific gravity, UA 1.008 1.001 - 1.035 [facility] pH, UA 5.0 5.0 - 8.5 [facility] Protein, UA 1+ (A) Negative [facility] Glucose, UA Negative Negative [facility] Ketones, UA Negative Negative [facility] Bilirubin, UA Negative Negative [facility] Blood, UA Negative Negative [facility] Nitrite, UA Negative Negative [facility] Urobilinogen, UA <2.0 <2.0 [facility] Leukocyte esterase, Negative Negative [facility] Epithelial cells, UA <1 /HPF [facility] Round epithelial <1 0 - 1 /HPF [facility] cells, HOSPITAL WBC, UA 1 0 - 4 /HPF [facility] RBC, UA None seen 0 - 5 /HPF [facility] Bacteria, UA None seen None seen [facility] Yeast, UA Few (A) [facility] Yeast with None seen [facility] pseudohyphae, [facility] Specimen Urine Performing Organization Address City/[facility] Phon e Number [facility] DEPARTMENT OF PATHOLOGY AND [address] [place] [address] [phone] [address] Urine culture (06/02/2020 2:00 AM CDT)Only the most recent of2 resultswithin the time period is included. Pathologist [facility] nature Urine culture SEE COMMENTComment: [facility] Bacteriuria screen HOSPITAL negative. Specimen Performing Organization Address [facility] Phon e Number [facility] DEPARTMENT OF PATHOLOGY AND [address] [place] [address] COVID-19 qualitative PCR (06/01/2020 7:48 PM CDT) Pathologist [facility] Interpretation Negative results do not prec lude 2019-nCoV infection and should not be used as the sole basis for treatment or other patient management decisions. Negative results must be combined with clinical observations, patient history, and epidemiological DANIELSON information. [facility] COVID-19 qualitative Not-Detected Not-Detecte [place] PCR result d [facility] COVID19 qualitative See link below for [place] PCR PDF Lab FAITH ReportComment: Case HOSPITAL Number: [id number] Specimen Nasopharyngeal swab Performing Organization Address [facility] Phon e Number [facility] DEPARTMENT OF PATHOLOGY AND [address] [place] [address] B natriuretic peptide (05/31/2020 12:45 AM CDT)Only the most recent of11 results within the time period is included. [facility] BNP >5000 (H) 0 - 100 pg/mL [facility] Comment: HOSPITAL Increased result of BNP most likely represents recent infusion of recombinant BNP. For monitoring, because of the brandin rt half-life of BNP (20 minutes), measurements taken 2 ho urs after cessation of treatment again reflects the level of end ogenous BNP. Specimen Blood Performing Organization Address [facility] Phon e Number [facility] DEPARTMENT OF PATHOLOGY AND [address] [place] [address] 0 [place] [address] Anti Xa, unfractionated (05/28/2020 3:20 PM CDT) [facility] Anti Xa, Footnote 0.30 - 0.70 [place] unfractionated Comment: U/mL [facility] Therapeutic Range: 0.30 - 0.70 U/mL HOS PITAL Unable to perform testing, specimen is QNS_. Recolle ct requested for XAUFH (tests). [facility] [place]/A8 (nam e/location) notified by Adan_ (tech ID) at 17:00 05/28/2020 (date/time ). Credit issued. Specimen Blood Performing Organization Address [facility] Phon e Number [facility] DEPARTMENT OF PATHOLOGY AND [address] [place] [address] [phone] [address] ECG 12 lead (05/28/2020 4:02 AM CDT)Only the most recent of8 resultswithin the time period is included. Pathologist Sig nature Ventricular rate 90 [facility] Atrial rate 68 [facility] QRSD interval 108 [facility] QT interval 390 [facility] QTC interval 477 [facility] QRS axis 1 23 [facility] T wave axis 96 [facility] EKG impression Atrial fibrillation with pre mature ventricular or aberrantly conducted complexes-Anteroseptal infarct (cited on or before 28-MAY-2020)-Abnormal ECG-In automated comparison with ECG of 25-MAY-2020 09:2 2,-No significant change was found-Electronically [facility] MUSE Signed By Ramin Hill MD ([id number]) on 05/28/2020 10:25:35 PM Specimen Narrative Performed At This result has an attachment that is no t available. Performing Organization Address [facility] Phon e Number [facility] MUSE [address] [place] [address] Ionized calcium (05/28/2020 4:00 AM CDT)Only the most recent of13 resultswithin the time period is included. Pathologist Sig nature pH 7.56 [facility] Ionized calcium 1.02 (L) 1.11 - 1.32 [facility] mmol/L HOSPITAL Specimen Blood Performing Organization Address City/[facility]/ZIP [facility] Phon e Number [facility] DEPARTMENT OF PATHOLOGY AND [address] [place] [address] [phone] [address] Prothrombin time with INR (05/27/2020 12:18 AM CDT)Only the most recent of12 resultswithin the time period is included. Prothrombin time 20.3 (H) 11.5 - 14.5 [facility] INR 1.7 [place] Comment: [facility] The International Normalized Ratio (INR) is a therapeu [facility] HOSPITAL monitoring tool for patients who are stable on oral anticoagulant therapy. An INR of 2.0-3.0 is suggested for deep vein thrombosis/pulmonary embolism. Specimen Blood Performing Organization Address City/State/ZIP Code Phon e Number [facility] DEPARTMENT OF PATHOLOGY AND [address] [place], [place] [address] GENOMIC MEDICINE [facility] [address] [place] [address] XR Chest 1 Vw Portable (05/26/2020 6:05 [...] without evidence of fracture or migratio n. [facility]-[id number] Dictated and approved by resident physician in radiology/fellow: Yoon Turcios M.D. I, Connor Alarcon MD, [...] stable without evidence of fracture or migration. [facility]-[id number] Dictated and approved by radiology resid ent/fellow: Hernan Turcios M.D. I, Connor Alarcon MD, personally reviewed the images and resident's/fellow's findings and agree with the final report. Performing Organization Address City/State/ZIP Code Phon e Number [address] [address] Ionized calcium, arterial (05/26/2020 12:32 AM CDT) Pathologist Sig nature Ionized calcium, 1.10 (L) 1.11 - 1.32 [facility] arterial mmol/L HOSPITAL Specimen Blood Performing Organization Address [facility] Phon e Number [facility] DEPARTMENT OF PATHOLOGY AND [address] [place] [address] [address] Hemoglobin A1c (05/26/2020 12:32 AM CDT) Hemoglobin A1C 10.7 (H) 4.0 - 5.6 % [facility] Comment: HOSPITAL HbA1c cutoffs for diagnosing diabetes: [...] 1 diabetes. Specimen Blood Performing Organization Address City/[facility] Phon e Number [facility] DEPARTMENT OF PATHOLOGY AND [address] [place] [address] [address] Arterial blood gas (05/26/2020 12:32 AM CDT)Only the most recent of8 results within the time period is included. Pathologist Sig nature pH, arterial 7.46 (H) 7.35 - 7.45 [facility] pCO2, arterial 41 35 - 45 mmHg [facility] pO2, arterial 82 80 - 90 mmHg [facility] Bicarbonate, 28.1 (H) 21.0 - 28.0 [facility] arterial mmol/L HOSPITAL Base excess, 4 (H) -2 - 2 mEq/L [facility] O2 saturation, 98 95 - 100 % [facility] arterial [facility] Specimen Blood Performing Organization Address City/[facility]/ZIP [facility] Phon e Number [facility] DEPARTMENT OF PATHOLOGY AND [address] [place] [address] [phone] [address] GGT (05/25/2020 12:00 AM CDT) Pathologist Sig nature GGT 76 (H) 0 - 39 U/L [facility] Specimen Blood Performing Organization Address City/[facility] Phon e Number [facility] DEPARTMENT OF PATHOLOGY AND [address] [place] [address] [phone] [address] Venous blood gas (05/25/2020 12:00 AM CDT)Only the most recent of4 resultswithin the time period is included. Pathologist Sig nature pH, venous 7.40 7.32 - 7.42 [facility] pCO2, venous 45 45 - 51 mmHg [facility] pO2, venous 39 25 - 40 mmHg [facility] Base excess, venous 3 (H) -2 - 2 meq/L [facility] O2 saturation, 71 (H) 40 - 70 % [facility] HOSPITAL Bicarbonate, venous 27.4 21.0 - 28.0 [facility] mmol/L HOSPITAL Specimen Blood Performing Organization Address City/[facility] Phon e Number [facility] DEPARTMENT OF PATHOLOGY AND [address] [place] [address] [address] Vancomycin level, random (05/25/2020 12:00 AM CDT)Only the most recent of2 resultswithin the time period is included. Pathologist Sig nature Vancomycin, random 16.0 ug/mL [facility] ITAL Specimen Serum Performing Organization Address City/[facility]/ZIP [facility] Phon e Number [facility] DEPARTMENT OF PATHOLOGY AND [address] [place] [address] [address] Sodium level (05/24/2020 4:45 PM CDT)Only the most recent of3 resultswithin the time period is included. Pathologist Sig nature Sodium 131 (L) 135 - 148 mEq/L [facility] L Specimen Blood Performing Organization Address City/[facility] Phon e Number [facility] DEPARTMENT OF PATHOLOGY AND [address] [place] [address] [phone] [address] BUN level (05/24/2020 8:15 AM CDT)Only the most recent of2 resultswithin the time period is included. Pathologist Sig nature BUN 47 (H) 8 - 23 mg/dL [facility] Specimen Blood Performing Organization Address [facility] Phon e Number [facility] DEPARTMENT OF PATHOLOGY AND [address] [place] [address] [phone] [address] Potassium level (05/24/2020 8:15 AM CDT)Only the most recent of2 resultswithin the time period is included. Pathologist Sig nature Potassium 3.3 (L) 3.5 - 5.0 mEq/L [facility] Specimen Blood Performing Organization Address [facility] [facility] Phon e Number [facility] DEPARTMENT OF PATHOLOGY AND [address] [place] [address] [phone] [address] Creatinine level (05/24/2020 8:15 AM CDT)Only the most recent of2 resultswithin the time period is included. Pathologist Sig nature Creatinine 3.25 (H) 0.50 - 0.90 mg/dL [facility] Specimen Blood Performing Organization Address City/[facility] Phon e Number [facility] DEPARTMENT OF PATHOLOGY AND [address] [place] [address] [address] Fibrinogen (05/24/2020 12:08 AM CDT)Only the most recent of6 resultswithin the time period is included. Pathologist Sig nature Fibrinogen 265 200 - 450 mg/dL [facility] Specimen Blood Performing Organization Address City/[facility] Phon e Number [facility] DEPARTMENT OF PATHOLOGY AND [address] [place] [address] [phone] [address] Lactic acid level (05/24/2020 12:08 AM CDT)Only the most recent of12 results within the time period is included. Pathologist Sig nature Lactic acid 2.0 0.5 - 2.2 mmol/L [facility] Specimen Blood Performing Organization Address City/[facility]/ZIP Code Phon e Number [facility] DEPARTMENT OF PATHOLOGY AND [address] [place], [place] [phone] GENOMIC MEDICINE [facility] [address] [place] [address] [place] Hepatic (05/23/2020 10:50 AM CDT) Specimen [...] ascites. 3.Hepatopedal flow is confirmed within t main portal vein. 4.A small pleural effusion is suspected. [facility]-[id number] Procedure Note Interface, Radiology Results Incoming - [...] ascites. 3.Hepatopedal flow is confirmed within t main portal vein. 4.A small pleural effusion is suspected. [facility]-[id number] Performing Organization Address City/[facility]/ZIP Code Phon e Number [facility] [address] [place] [address] [place] Renal (05/23/2020 10:28 AM CDT) Specimen Narrative Performed At EXAMINATION: US RENAL [facility] CLINICAL HISTORY: Renal failure chronic (kidney di sease), patient ANURIC COMPARISON: June 16, 2019 IMPRESSION: The right kidney measures 9.6 x 5.1 x 4. 7. The left kidney measures 10.1 x 5.7 x 5. 1. The kidneys are normal in size and echogenicity. There is no evidence of renal mass, calculi, or hydronephrosis. A catheter is present within a nondisten ded bladder. [facility]-[id number] Procedure Note Interface, Radiology Results Incoming - 05/23/2020 11:12 [...] is present within a nondisten ded bladder. [facility]-[id number] Performing Organization Address City/[facility] Phon e Number [address] [address] Hepatitis acute panel (05/22/2020 7:45 PM CDT) Pathologist Sig nature Hepatitis A IgM Non-reactive Non-reactive [facility] Hepatitis B core Non-reactive Non-reactive [facility] Hepatitis B surface Non-reactive Non-reactive [facility] Hepatitis C Ab Non-reactive Non-reactive [facility] Specimen Serum Narrative Performed At [facility] results called to and read back by [facility] DEPARTMEN T OF PATHOLOGY AND [facility] A/IC(name/location) MEDICINE at 05/22/2020 20:45 (date/time) by PC. Performing Organization Address City/[facility]/ZIP [facility] Phon e Number [facility] DEPARTMENT OF PATHOLOGY AND [address] [place] [address] [phone] [address] Blood culture, aerobic & anaerobic (05/22/2020 4:05 PM CDT)Only the most recent of2 resultswithin the time period is included. Blood culture No growth after 5 days of incubation. AUGUSTINE MOE isolate Comment: HOSPITAL Specimen Information Specimen Source: Blood Specimen Site: Wrist, Left Specimen Blood - Wrist, left Performing Organization Address City/[facility]/ZIP [facility] Phon e Number [facility] DEPARTMENT OF PATHOLOGY AND [address] [place] [phone] [facility] [address] [place] [address] Arterial Line Insertion (05/22/2020 5:27 AM CDT) [...] 2:15 AM CDT) Specimen Narrative Performed At [facility] Echo cardiography Report [id number] [address] Pat.Name: NASIR AVILA.ID: [id number] .Date: 05/22/2020 Refer.MD: ELVIN RAJPUT MD Exam Time: 12:55:00 AM Study Type:Ro utine Echo Height: 68in Weight: 161lb BSA: 1.87 m2 Ag e: 1940,79Y Sex: FEMALE BP: 150/87 HR: 53 bpm Sonogr phr: Jailyn Torres RDCS, RVT Pat. Stat.:Inpatient Room: [place] [address] Study Status:Final Echo Event ID:[id number] Order ID: [id number] Reason for Study:Acute hemo instability with hypotension [...] of 15-20 mmHg. MEASUREMENTS: 2D Parasternal [place] Ao An 1.6 cm LVPWd 1.5 cm [...] - 2019 10:29 AM CDT Echocardiography Report [address] [address] Pat.Name: NASIR AVILA D: [id number] .Date: 05/22/2020 Refer .MD: ELVIN RAJPUT MD Exam Time: 12:55:00 AM Study Type:Routine Echo Height: 68in Weigh t: 161lb BSA: 1.87 m2 Age: 1 1940,79Y Sex: FEMALE BP: 150/87 HR: 53 bpm Sonog rphr: Jailyn Torres RDCS, RVT Pat. Stat.:Inpatient Room: [place] [address] Study Status:Final Echo Event ID:[id number] Order ID: [id number] Reason for Study:Acute hemo instability with hypotension [...] of 15-20 mmHg. MEASUREMENTS: 2D Parasternal [place] Ao An 1.6 cm LVPW d 1.5 [...] City/State/ZIP Code Phon e Number [facility] [address] [place] [address] Central Line Insertion (05/21/2020 11:30 PM CDT) Narrative Performed At Pratima Salomon NP 05/22/2020 5:23 A M Central Line Insertion Performed by: Pratima Salomon NP Authorized by: Pratima Salomon NP Consent: Consent obtained: Emergent situatio n [place] protocol: Immediately prior to procedure, a baljit e out was called: yes Patient identity confirmed: [...] PM CDT) Platelet slide review Decreased (A) [facility] Anisocytosis Moderate [facility] Polychromasia Moderate [facility] Ovalocytes Moderate [facility] Ramses cells Many (A) [facility] Acanthocytes Occasional [facility] Enlarged platelets Moderate (A) [facility] Specimen Performing Organization Address City/[facility] Phon e Number [facility] DEPARTMENT OF PATHOLOGY AND [address] [place], [place] [address] [address] Prepare fresh frozen plasma, 3 Units (05/21/2020 9:50 PM CDT) Product name Thawed Plasma [facility] Unit number [id number] [facility] Product code [id number] [facility] Dispense status Returned to BB not [facility] Blood expiration date [facility] Blood type code 7300 [facility] Blood type B POSITIVE [facility] Compatibility Not required [facility] Product name Thawed Plasma [facility] Unit number [id number] [facility] Product code [id number] [facility] Dispense status Returned to BB not [facility] Blood expiration date [facility] Blood type code 7300 [facility] Blood type B POSITIVE [facility] Compatibility Not required [facility] Product name Thawed Plasma [facility] Unit number [id number] [facility] Product code [id number] [facility] Dispense status Transfused [facility] Blood expiration date [facility] Blood type code 7300 [facility] Blood type B POSITIVE [facility] Compatibility Not required [facility] Specimen Blood Performing Organization Address City/[facility] Phon e Number [facility] DEPARTMENT OF PATHOLOGY AND [address] [place], [place] [address] [address] Prepare RBC, 4 Units (05/21/2020 9:50 PM CDT) Product name Red Blood Cells [place] -1, Leukored [facility] Unit number [id number] [facility] Product code [id number] [facility] Dispense status Returned to BB not [facility] Blood expiration date [facility] Blood type code 7300 [facility] Blood type B POSITIVE [facility] Compatibility Compatible [facility] Specimen Blood Performing Organization Address City/[facility] Phon e Number [facility] DEPARTMENT OF PATHOLOGY AND [address] [place] [address] [phone] [address] Type and screen (05/21/2020 9:50 PM CDT) Pathologist Sig nature ABO grouping B [facility] Rh type POS [facility] Antibody screen (gel) NEG [facility] Specimen Performing Organization Address City/[facility] Phon e Number [facility] DEPARTMENT OF PATHOLOGY AND [address] [place] [address] [phone] [address] Thyroid stimulating hormone (05/21/2020 6:35 AM CDT) Pathologist Sig nature TSH 5.93 (H) 0.27 - 4.20 uIU/mL [facility] Specimen Blood Performing Organization Address City/[facility] Phon e Number [facility] DEPARTMENT OF PATHOLOGY AND [address] [place] [address] [phone] [address] T4, free (05/21/2020 6:35 AM CDT) Pathologist Sig nature T4, free 1.5 0.9 - 1.7 ng/dL [facility] Specimen Blood Performing Organization Address [facility] Phon e Number [facility] DEPARTMENT OF PATHOLOGY AND [address] [place] [address] [phone] [address] Lipid panel (05/21/2020 6:35 AM CDT) Cholesterol 108 <200 mg/dL [facility] Triglycerides 67 <150 mg/dL [facility] HDL cholesterol 41 >40 mg/dL [facility] LDL cholesterol 58Comment: Result <100 mg/dL [place] obtained by direct FAITH LDL [facility] Lipid panel [facility] interpretation Comment: FAITH Total Cholesterol (mg/dL) [facility] [place] <200 Desirable [...] Organization Address City/State/ZIP Code Phon e Number [facility] DEPARTMENT OF PATHOLOGY AND [address] [place] [phone] GENOMIC [address] [address] after 09/07/2019 Insurance Payer Benefit Plan / Subscriber ID Effective Dates Phone Addre ss Type Group [employer] MEDICARE [employer] MEDICARE [id number] 2017-Present PPO PPO/PFFS/ERS [facility] Advance Directives For more information, please contact: [phone] Type Date 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
--- OUTSIDE RECORDS SUMMARY | 2020-09-07 08:59 | XMS REPORT | Continuity of Care Document ---
:1940 Author Organization [facility] t Address [address] [place] [address] Care Team Providers Name Role Phone Asked, Pcp Primary Care Physician Unavailable Doctor Unassigned, Name Attending Clinician Unavailable Bettina CAAL Attending Clinician Atiya MARQUES, ORadha Attending Clinician ATIYA Admitting Clinician Unavailable Payers Payer Name Policy Type Policy Effective Date Expiration Date Sour ce Number HUMANA [id number] 2017 [place] MEDICAREHUMANA 00:00:00 [facility] MEDICARE PPO/PFFS/ERS [id number] 2017 -PresentPPO Problems Condition Condition Condition Status Onset Resolution Last Treating Co mments Source Name Details Category Date Date Treatment Clinician Date Nausea and Nausea and Disease Active H dorie vomiting vomiting 830 [facility] i 00:00: st 00 Cardiogeni Cardiogeni Disease Active [place] c shock c shock 06-21 [facility] 00:00: st 00 Atrial Atrial Disease Active [place] fibrillati fibrillati 06-15 Me thodi on on 00:00: st Essential Essential Disease Active [place] hypertensi hypertensi 06-15 Me [facility] on on 00:00: st 00 Type 2 Type 2 Disease Active [place] diabetes diabetes 06-15 [facility] mellitus mellitus 00:00: st 00 Allergies, Adverse Reactions, Alerts Allergy Allergy Status Severity Reaction(s) Onset Inactive Treating Comm ents Source Name Type Date Date Clinician Codeine Propensi Active Hallucinatio [place] to ns Methodi adverse st reaction s to drug Morphine Propensi Active Hallucinatio Pt had it [place] ty to ns when son Methodi adverse was born. st reaction s to drug Penicill Propensi Active Rash Long time [place] in [place] ty to ago, pt [facility] adverse can't st reaction remember. s to drug Family History Family Member Diagnosis Comments Start Date Stop Date Source Natural father Heart disease [place] [facility] Natural mother Cancer [facility] thodist Social History Social Habit Start Date Stop Date Quantity Comments Source History [facility] [employer] Meth odist Alcohol Std Drinks History [facility] [employer] Meth odist Alcohol Binge Sex Assigned At [facility] ethodist Tobacco use and 2020-05-21 2020-05-21 Never used [facility] ethodist exposure 00:00:00 00:00:00 Alcohol intake 2020-05-21 2020-05-21 Lifetime [facility] thodist 00:00:00 00:00:00 non-drinker (finding) History [facility] 2019-06-15 2019-06-15 1 [place] Meth odist Alcohol Frequency 00:00:00 00:00:00 Smoking Status Start Date Stop Date Source Never smoker [place] Methodis t Medications Ordered Filled Start Stop Current Ordering Indication Dosage Frequency Signature Comments Components Source Medication Medication Date Date Medication? Clinician (SIG) Name Name insulin 2020- No 55U QD Inject 55 [place] GLARGINE 06-06 Units [facility] (LANTUS) 19:48: 00:[address] 100 unit/mL 26 :00 skin injection daily. (vial) FLUoxetine 2019- No 20mg QD Take 20 mg Reilly (PROzac) 20 06-06 by mouth Met hodi MG capsule 19:48: 00:[address] 26 :00 clopidogrel 2019- 2020- No 75mg QD Take 75 mg Reilly (PLAVIX) 75 06-06 by mouth Met hodi mg tablet 19:48: 00:[address] 26 :00 primidone 2020- No 50mg QD Take 50 mg [...] mouth st tablet 26 :00 daily. apixaban 2019- Yes 2.5mg Q.5D Take 2.5 [place] [...] st 58 :00 diphenhydra 2019- 2020- No [id number] Apply [place] mine-zinc 06-06 [id number] topically [facility] acetate 00:00: 23:59 3D 3 [...] 30 days. insulin 2020-0 2020- No 0U [id number] Inject [place] lispro 9-11 10-11 [id number] 0-12 Units [facility] (ADMELOG) 00:00: 23:59 3D [...] flatulence for up to 30 days. pantoprazol 40mg QD Take 1 [place] e 06-02 10-11 tablet (40 [facility] (Protonix) 00:00: 23:59 mg total) s t 40 MG EC 00 :00 by mouth tablet daily for 30 days. sod phos No 2{tbl} Take 2 [place] di, mono-K 06-0211 tablets by [place] thodi phos mono 00:00: 23:59 mouth once s t (PHOSPHA 00 :00 for 1 250 dose. NEUTRAL) 250 mg tablet per tablet Immunizations Ordered Immunization Filled Immunization Date Status Commen ts Source Name Name FLUCELVAX QUAD 2019-06-24 [facility] 00:00:00 [facility] Vital Signs Vital Name Observation Time Observation Value Comments Source Systolic blood 2020-06-06 15:39:46 151 mm[Hg] [place] [facility] pressure Diastolic blood 2020-06-06 15:39:46 59 mm[Hg] Erik on [facility] pressure Heart rate 2020-06-06 15:39:46 61 /min Tommie Goldberg Body temperature 2020-06-06 15:39:46 36.44 Viktoriya [place] [facility] Respiratory rate 2020-06-06 15:39:46 18 /min [place] [facility] Oxygen saturation in 2020-06-06 15:39:46 99 /min [...] 08:07:00 Elvin Rajput MAGNESIUM LEVEL 2020-06-05 04:00:00 Orosco, Kory Reilly Trang ethodist [place] PHOSPHORUS LEVEL 2020-06-05 04:00:00 Kory Orosco [place] HC COMPLETE BLD COUNT 2020-06-05 04:00:00 Elvin Rajput [facility] W/AUTO DIFF ESTIMATED GFR 2020-06-05 04:00:00 Kory Oroscoodist [place] COMPREHENSIVE METABOLIC 2020-06-05 04:00:00 Kory Orosco [facility] PANEL [place] POC GLUCOSE 2020-06-05 03:29:00 Elvin Rajput POC GLUCOSE 2020-06-05 03:18:00 Elvin Rajput POC GLUCOSE 2020-06-04 21:11:00 Elvin Rajput [facility] POC GLUCOSE 2020-06-04 18:12:00 Elvin Rajput [facility] POC GLUCOSE 2020-06-04 16:42:00 Elvin Rajput [facility] POC GLUCOSE 2020-06-04 12:08:00 Elvin Rajput POC GLUCOSE 2020-06-04 07:40:00 Elvin Rajput BASIC METABOLIC PANEL 2020-06-04 05:00:00 Kory Orosco [facility] [place] MAGNESIUM LEVEL 2020-06-04 05:00:00 Kory Orosco ethodist [place] PHOSPHORUS LEVEL 2020-06-04 05:00:00 Kory Orosco [facility] [place] ESTIMATED GFR 2020-06-04 05:00:00 Kory Orosco ethodist [place] POC GLUCOSE 2020-06-03 20:20:00 Elvin Rajput [facility] POC GLUCOSE 2020-06-03 17:03:00 Elvin Rajput [facility] POC GLUCOSE 2020-06-03 12:01:00 Elvin Rajput [facility] POC GLUCOSE 2020-06-03 07:51:00 Elvin Rajput HEPATIC FUNCTION PANEL 2020-06-03 04:00:00 Nicole Weiss [facility] DIGOXIN LEVEL 2020-06-03 04:00:00 Keo Delgado odist BASIC METABOLIC PANEL 2020-06-03 04:00:00 Kwesi Kory sharp [facility] [place] MAGNESIUM LEVEL 2020-06-03 04:00:00 Kory Orosco ethodist [place] PHOSPHORUS LEVEL 2020-06-03 04:00:00 Kory Orosco [place] ESTIMATED GFR 2020-06-03 04:00:00 Nicole Weiss hodjohanna POC GLUCOSE 2020-06-02 21:30:00 Elvin Rajput POC GLUCOSE 2020-06-02 17:15:00 Elvin Rajput POC GLUCOSE 2020-06-02 11:58:00 Elvin Rajput POC GLUCOSE 2020-06-02 08:27:00 Elvin Rajput POC GLUCOSE 2020-06-02 06:49:00 Elvin Rajput PARTIAL THROMBOPLASTIN 2020-06-02 04:40:00 Keo Delgado on [facility] TIME (PTT) BASIC METABOLIC PANEL 2020-06-02 04:00:00 Kory Orosco [facility] [place] MAGNESIUM LEVEL 2020-06-02 04:00:00 Kory Orosco ethodist [place] PHOSPHORUS LEVEL 2020-06-02 04:00:00 Kory Orosco [place] HEPATIC FUNCTION PANEL 2020-06-02 04:00:00 Nicole Weiss [facility] ESTIMATED GFR 2020-06-02 04:00:00 Kory Orosco ethodist [place] URINE CULTURE 2020-06-02 02:00:00 Elvin Rajput URINALYSIS SCREEN AND 2020-06-02 02:00:00 Elvin Rajput MICROSCOPY, WITH REFLEX TO CULTURE POC GLUCOSE 2020-06-01 21:00:00 Elvin Rajput COVID-19 QUALITATIVE PCR 2020-06-01 19:48:00 Elvin Rajput POC GLUCOSE 2020-06-01 17:38:00 Elvin Rajput [facility] POC GLUCOSE 2020-06-01 12:34:00 Elvin Rajput [facility] POC GLUCOSE 2020-06-01 09:00:00 Elvin Rajput [facility] POC GLUCOSE 2020-06-01 05:12:00 Elvin Rajput BASIC METABOLIC PANEL 2020-06-01 05:00:00 Kory Orosco [facility] [place] MAGNESIUM LEVEL 2020-06-01 05:00:00 Kory Orosco M ethodist [place] PHOSPHORUS LEVEL 2020-06-01 05:00:00 Kory Oroscoist [place] DIGOXIN LEVEL 2020-06-01 05:00:00 Keo Delgado Meth odist HEPATIC FUNCTION PANEL 2020-06-01 05:00:00 Nicole Weiss [facility] ESTIMATED GFR 2020-06-01 05:00:00 Nicole Weiss hodist POC GLUCOSE 2020-05-31 23:23:00 Elvin Rajput [facility] PARTIAL THROMBOPLASTIN 2020-05-31 23:20:00 Keo Delgado on [facility] TIME (PTT) POC GLUCOSE 2020-05-31 21:03:00 Elvin Rajput [facility] POC GLUCOSE 2020-05-31 17:35:00 Elvin Rajput [facility] PARTIAL THROMBOPLASTIN 2020-05-31 16:15:00 Keo Delgado on [facility] TIME (PTT) POC GLUCOSE 2020-05-31 12:17:00 Elvin Rajput [facility] PARTIAL THROMBOPLASTIN 2020-05-31 08:35:00 Elvin Rajput [facility] TIME (PTT) POC GLUCOSE 2020-05-31 08:14:00 Elvin Rajput DIGOXIN LEVEL 2020-05-31 00:45:00 Keo Delgado Meth odist PARTIAL THROMBOPLASTIN 2020-05-31 00:45:00 Elvin Rajput [facility] TIME (PTT) B NATRIURETIC PEPTIDE 2020-05-31 00:45:00 Keo Delgado [facility] BASIC METABOLIC PANEL 2020-05-31 00:45:00 Jarad OroscodonaldGeo [place] [facility] [place] MAGNESIUM LEVEL 2020-05-31 00:45:00 Kwesi Kory Reilly Trang ethodist [place] PHOSPHORUS LEVEL 2020-05-31 00:45:00 Kwesi Kory Reilly [facility] [place] ESTIMATED GFR 2020-05-31 00:45:00 Kwesi Kory Tommie Costello ethodist [place] POC GLUCOSE 2020-05-30 21:29:00 Elvin Rajput [facility] POC GLUCOSE 2020-05-30 17:27:00 Elvin Rajput PARTIAL THROMBOPLASTIN 2020-05-30 14:05:00 Keo Delgado on [facility] TIME (PTT) POC GLUCOSE 2020-05-30 11:32:00 Elvin Rajputist POC GLUCOSE 2020-05-30 08:03:00 Elvin Rajput HEPATIC FUNCTION PANEL 2020-05-30 06:09:00 Pratima Salomon on [facility] HC COMPLETE BLD COUNT 2020-05-30 06:09:00 Evlin Rajput [facility] W/AUTO DIFF BASIC METABOLIC PANEL 2020-05-30 06:09:00 Vivek Quinteros [facility] PARTIAL THROMBOPLASTIN 2020-05-30 06:09:00 Pratima Salomon on [facility] TIME (PTT) ESTIMATED GFR 2020-05-30 06:09:00 Vivek Quinteros Me thodist MAGNESIUM LEVEL 2020-05-30 06:09:00 Pratima Salomon Meth odist B NATRIURETIC PEPTIDE 2020-05-30 06:00:00 Elvin Rajput [facility] POC GLUCOSE 2020-05-29 21:21:00 Elvin Rajput PARTIAL THROMBOPLASTIN 2020-05-29 21:00:00 Elvin Rajput [facility] TIME (PTT) POC GLUCOSE 2020-05-29 18:20:00 Elvin Rajput PARTIAL THROMBOPLASTIN 2020-05-29 12:20:00 Pratima Salomon on [facility] TIME (PTT) POC GLUCOSE 2020-05-29 12:17:00 Elvin Rajput POC GLUCOSE 2020-05-29 08:23:00 Elvin Rajput HEPATIC FUNCTION PANEL 2020-05-29 05:50:00 Pratima Salomon on [facility] B NATRIURETIC PEPTIDE 2020-05-29 05:50:00 Pratima Salomon [facility] MAGNESIUM LEVEL 2020-05-29 05:50:00 Joann Rivers [facility] PARTIAL THROMBOPLASTIN 2020-05-29 05:50:00 Pratima Salomon [facility] TIME (PTT) ESTIMATED GFR 2020-05-29 05:50:00 Pratima Salomon Meth odist BASIC METABOLIC PANEL 2020-05-29 05:50:00 Pratima Salomon [facility] POC GLUCOSE 2020-05-28 21:03:00 Elvin Rajput PARTIAL THROMBOPLASTIN 2020-05-28 19:54:00 Elvin Rajput [facility] TIME (PTT) POC GLUCOSE 2020-05-28 17:31:00 Elvin Rajput ANTI XA, UNFRACTIONATED 2020-05-28 15:20:00 Elvin Rajput POC GLUCOSE 2020-05-28 12:20:00 Elvin Rajput POC GLUCOSE 2020-05-28 07:47:00 Elvin Rajput POC GLUCOSE 2020-05-28 05:30:00 Elvin Rajput ECG 12-LEAD 2020-05-28 04:02:27 Elvin Rajput HEPATIC FUNCTION PANEL 2020-05-28 04:00:00 Pratima Salomon [facility] BASIC METABOLIC PANEL 2020-05-28 04:00:00 Veronica Schuler [facility] IONIZED CALCIUM 2020-05-28 04:00:00 Veronica Schuler Meth odist MAGNESIUM LEVEL 2020-05-28 04:00:00 Veronica Schuler Meth odist PHOSPHORUS LEVEL 2020-05-28 04:00:00 Veronica Schuler Met hodist ESTIMATED GFR 2020-05-28 04:00:00 Aminah Og Met hodist DIGOXIN LEVEL 2020-05-28 04:00:00 Aminah Og Met hodist B NATRIURETIC PEPTIDE 2020-05-28 03:45:00 Pratima Salomon [facility] HC COMPLETE BLD COUNT 2020-05-28 03:45:00 Veronica Schuler [facility] W/AUTO DIFF PARTIAL THROMBOPLASTIN 2020-05-28 03:45:00 Elvin Rajput [facility] TIME (PTT) POC GLUCOSE 2020-05-27 23:24:00 Elvin Rajput PARTIAL THROMBOPLASTIN 2020-05-27 19:55:00 OrganekAminah [facility] TIME (PTT) POC GLUCOSE 2020-05-27 19:44:00 Elvin Rajput [facility] POC GLUCOSE 2020-05-27 15:24:00 Elvin Rajput POC GLUCOSE 2020-05-27 11:12:00 Elvin Rajput [facility] POC GLUCOSE 2020-05-27 11:11:00 Elvin Rajput [facility] POC GLUCOSE 2020-05-27 07:29:00 Elvin Rajput [facility] POC GLUCOSE 2020-05-27 03:21:00 Elvin Rajput HEPATIC FUNCTION PANEL 2020-05-27 01:06:00 Nicole Weiss [facility] BASIC METABOLIC PANEL 2020-05-27 01:06:00 Zainab Saini [facility] IONIZED CALCIUM 2020-05-27 01:06:00 Zainab Saini Meth odist MAGNESIUM LEVEL 2020-05-27 01:06:00 Zainab Saini Meth odist PHOSPHORUS LEVEL 2020-05-27 01:06:00 Zainab Saini Met hodist DIGOXIN LEVEL 2020-05-27 01:06:00 OrganekAminah Met hodist ESTIMATED GFR 2020-05-27 01:06:00 Nicole Weiss Met hodist PROTHROMBIN TIME WITH INR 2020-05-27 00:18:00 OrganAminah shepherd PARTIAL THROMBOPLASTIN 2020-05-27 00:18:00 Aminah Og [facility] TIME (PTT) B NATRIURETIC PEPTIDE 2020-05-27 00:18:00 OrganAminah shepherd on [facility] HC COMPLETE BLD COUNT 2020-05-27 00:18:00 Zainab Saini [facility] W/AUTO DIFF POC GLUCOSE 2020-05-26 23:18:00 Elvin Rajput POC GLUCOSE 2020-05-26 19:25:00 Elvin Rajput POC GLUCOSE 2020-05-26 15:07:00 Elvin Rajput POC GLUCOSE 2020-05-26 10:57:00 Elvin Rajput POC GLUCOSE 2020-05-26 07:01:00 Elvin Rajput XR CHEST 1 VW PORTABLE 2020-05-26 06:05:00 Zainab Sainiist POC GLUCOSE 2020-05-26 03:55:00 Elvin Rajput HEPATIC FUNCTION PANEL 2020-05-26 00:56:00 Nicole Weiss BASIC METABOLIC PANEL 2020-05-26 00:56:00 Zainab Saini MAGNESIUM LEVEL 2020-05-26 00:56:00 Zainab Saini Meth odist PHOSPHORUS LEVEL 2020-05-26 00:56:00 Zainab Saini Met ratna ESTIMATED GFR 2020-05-26 00:56:00 Zainab Saini Meth odist POC GLUCOSE 2020-05-26 00:53:00 Elvin Rajput PROTHROMBIN TIME WITH INR 2020-05-26 00:32:00 Aminah Og PARTIAL THROMBOPLASTIN 2020-05-26 00:32:00 Aminah Og TIME (PTT) HC COMPLETE BLD COUNT 2020-05-26 00:32:00 Zainab Saini W/AUTO DIFF ARTERIAL BLOOD GAS 2020-05-26 00:32:00 Zainab Saini ethodist B NATRIURETIC PEPTIDE 2020-05-26 00:32:00 Aminah Og HEMOGLOBIN A1C 2020-05-26 00:32:00 Aminah Og IONIZED CALCIUM, ARTERIAL 2020-05-26 00:32:00 Zainab Saini POC GLUCOSE 2020-05-25 22:58:00 Elvin Rajput POC GLUCOSE 2020-05-25 21:08:00 Elvin Rajput POC GLUCOSE 2020-05-25 19:37:00 Elvin Rajput POC GLUCOSE 2020-05-25 18:35:00 Elvin Rajput POC GLUCOSE 2020-05-25 17:32:00 Elvin Rajput IONIZED CALCIUM 2020-05-25 16:30:00 ClaraSanaveronicastef Goldberg Nnebuogo POC GLUCOSE 2020-05-25 16:21:00 Elvin Rajput [facility] POC GLUCOSE 2020-05-25 13:52:00 Elvin Rajput [facility] POC GLUCOSE 2020-05-25 12:17:00 Elvin Rajput [facility] POC GLUCOSE 2020-05-25 11:10:00 Elvin Rajput [facility] POC GLUCOSE 2020-05-25 09:48:00 Elvin Rajput ECG 12-LEAD 2020-05-25 09:22:31 Elvin Rajput POC GLUCOSE 2020-05-25 08:02:00 Elvin Rajputist POC GLUCOSE 2020-05-25 07:03:00 Elvin Rajput XR CHEST 1 VW PORTABLE 2020-05-25 06:42:46 Zainab Saini [facility] POC GLUCOSE 2020-05-25 06:14:00 Elvin Rajput [facility] POC GLUCOSE 2020-05-25 05:10:00 Elvin Rajput [facility] POC GLUCOSE 2020-05-25 03:45:00 Elvin Rajput [facility] POC GLUCOSE 2020-05-25 02:07:00 Elvin Rajput [facility] POC GLUCOSE 2020-05-25 00:03:00 Elvin Rajput B NATRIURETIC PEPTIDE 2020-05-25 00:00:00 Aminah Og GGT 2020-05-25 00:00:00 Nicole Weiss HEPATIC FUNCTION PANEL 2020-05-25 00:00:00 Nicole Weiss VANCOMYCIN LEVEL, RANDOM 2020-05-25 00:00:00 Aminah Og BASIC METABOLIC PANEL 2020-05-25 00:00:00 Zainab Saini HC COMPLETE BLD COUNT 2020-05-25 00:00:00 Zainab Saini W/AUTO DIFF IONIZED CALCIUM 2020-05-25 00:00:00 Concha Sainiah Tommie Meth odist MAGNESIUM LEVEL 2020-05-25 00:00:00 YenyZainab Meth odist PHOSPHORUS LEVEL 2020-05-25 00:00:00 YenyZainab Tommie Met hodist PROTHROMBIN TIME WITH INR 2020-05-25 00:00:00 OrganAminah shepherd PARTIAL THROMBOPLASTIN 2020-05-25 00:00:00 Aminah Og [facility] TIME (PTT) VENOUS BLOOD GAS 2020-05-25 00:00:00 Aminah Og Me thodist ESTIMATED GFR 2020-05-25 00:00:00 OrganAminah shepherd Met hodist POC GLUCOSE 2020-05-24 22:51:00 Elvin Rajput [facility] POC GLUCOSE 2020-05-24 22:04:00 Elvin Rajput [facility] POC GLUCOSE 2020-05-24 21:21:00 Elvin Rajput [facility] POC GLUCOSE 2020-05-24 19:54:00 Elvin Rajput [facility] POC GLUCOSE 2020-05-24 18:03:00 Elvin Rajput [facility] POC GLUCOSE 2020-05-24 17:06:00 Elvin Rajputist SODIUM LEVEL 2020-05-24 16:45:00 OrganAminah shepherd Met hodist POC GLUCOSE 2020-05-24 16:04:00 Elvin Rajput [facility] POC GLUCOSE 2020-05-24 14:49:00 Elvin Rajput [facility] POC GLUCOSE 2020-05-24 13:54:00 Elvin Rajput [facility] POC GLUCOSE 2020-05-24 13:03:00 Elvin Rajputist PROTHROMBIN TIME WITH INR 2020-05-24 12:30:00 OrganAminah shepherdist PARTIAL THROMBOPLASTIN 2020-05-24 12:30:00 Aminah Og [facility] TIME (PTT) POC GLUCOSE 2020-05-24 11:56:00 Elvin Rajput [facility] POC GLUCOSE 2020-05-24 10:59:00 Elvin Rajput XR CHEST 1 VW PORTABLE 2020-05-24 10:10:00 Zainab Saini on [facility] POC GLUCOSE 2020-05-24 09:54:00 Elvin Rajput [facility] POC GLUCOSE 2020-05-24 08:54:00 Elvin Rajput [facility] BUN LEVEL 2020-05-24 08:15:00 Vivek Quinteros Ny thodist CREATININE LEVEL 2020-05-24 08:15:00 Aldair Jose CKatharina Reilly ethodist IONIZED CALCIUM 2020-05-24 08:15:00 Vivek Quinteros MRadha Reilly Ny thodist MAGNESIUM LEVEL 2020-05-24 08:15:00 Vivek Quinteros MRadha Reilly Ny thodist PHOSPHORUS LEVEL 2020-05-24 08:15:00 Vivek Quinteros MRadha Reilly ethodist POTASSIUM LEVEL 2020-05-24 08:15:00 Vivek Quinteros MRadha Reilly Ny thodist PARTIAL THROMBOPLASTIN 2020-05-24 08:15:00 Vivek Quinteros [facility] TIME (PTT) SODIUM LEVEL 2020-05-24 08:15:00 Vivek Quinteros Ny thodist ESTIMATED GFR 2020-05-24 08:15:00 Vivek Quinteros Ny thodist POC GLUCOSE 2020-05-24 08:10:00 Elvin Rajputist POC GLUCOSE 2020-05-24 07:03:00 Elvin Rajputist POC GLUCOSE 2020-05-24 05:54:00 Elvin Rajputist POC GLUCOSE 2020-05-24 05:12:00 Elvin Rajput [facility] POC GLUCOSE 2020-05-24 03:54:00 Elvin Rajput XR CHEST 1 VW PORTABLE 2020-05-24 03:12:00 Aminah Og [facility] POC GLUCOSE 2020-05-24 03:05:00 Elvin Rajput [facility] POC GLUCOSE 2020-05-24 01:56:00 Elvin Rajput [facility] POC GLUCOSE 2020-05-24 00:10:00 Elvin Rajput B NATRIURETIC PEPTIDE 2020-05-24 00:08:00 Aminah Og [facility] PARTIAL THROMBOPLASTIN 2020-05-24 00:08:00 Vivek Quinteros [facility] TIME (PTT) BASIC METABOLIC PANEL 2020-05-24 00:08:00 Rosario Wild [facility] Natanael HC COMPLETE BLD COUNT 2020-05-24 00:08:00 Rosario Wild Mariummarlon richardson [facility] W/AUTO DIFF Natanael PHOSPHORUS LEVEL 2020-05-24 00:08:00 Wild Rosario Reilly [facility] Natanael MAGNESIUM LEVEL 2020-05-24 00:08:00 Junito Rosario Reilly [facility] Natanael LACTIC ACID LEVEL 2020-05-24 00:08:00 Junito Rosario Doty n [facility] Natanael IONIZED CALCIUM 2020-05-24 00:08:00 WildRosario [facility] Natanael HEPATIC FUNCTION PANEL 2020-05-24 00:08:00 Rosario Wild Natanael PROTHROMBIN TIME WITH INR 2020-05-24 00:08:00 OrganekAminah FIBRINOGEN 2020-05-24 00:08:00 OrganAminah shepherd Met hodjohanna VENOUS BLOOD GAS 2020-05-24 00:08:00 OrganAminah shepherd thodist TROPONIN 2020-05-24 00:08:00 OrganAminah shepherd Met hodist ESTIMATED GFR 2020-05-24 00:08:00 Rosario Wild Natanael POC GLUCOSE 2020-05-23 21:47:00 Elvin Rajput POC GLUCOSE 2020-05-23 19:51:00 Elvin Rajput PROTHROMBIN TIME WITH INR 2020-05-23 18:15:00 OrganAminah shepherd FIBRINOGEN 2020-05-23 18:15:00 OrganAminah shepherd Met ratna HC COMPLETE BLD COUNT 2020-05-23 18:15:00 OrganAminah shepherd [facility] W/AUTO DIFF LACTIC ACID LEVEL 2020-05-23 18:05:00 OrganekAminah ethodist TROPONIN 2020-05-23 18:05:00 OrganAminah shepherd Met hodist POC GLUCOSE 2020-05-23 17:56:00 Elvin Rajputist POC GLUCOSE 2020-05-23 17:12:00 Elvin Rajput BUN LEVEL 2020-05-23 16:00:00 Vivek Quinteros thodist CREATININE LEVEL 2020-05-23 16:00:00 Vivek Quinteros ethodist IONIZED CALCIUM 2020-05-23 16:00:00 Vivek Quinteros MRadha Reilly Ny thodist MAGNESIUM LEVEL 2020-05-23 16:00:00 Vivek Quinteros Ny thodist PHOSPHORUS LEVEL 2020-05-23 16:00:00 Vivek Quinteros Trang ethodist POTASSIUM LEVEL 2020-05-23 16:00:00 Vivek Quinteros Ny thodist PARTIAL THROMBOPLASTIN 2020-05-23 16:00:00 Vivek Quinteros [facility] TIME (PTT) SODIUM LEVEL 2020-05-23 16:00:00 Vivek Quinteros Ny thodist ESTIMATED GFR 2020-05-23 16:00:00 Vivek Quinteros Ny thodist POC GLUCOSE 2020-05-23 15:56:00 Elvin Rajput POC GLUCOSE 2020-05-23 14:56:00 Elvin Rajput POC GLUCOSE 2020-05-23 13:59:00 Elvin Rajput POC GLUCOSE 2020-05-23 13:00:00 Elvin Rajput BASIC METABOLIC PANEL 2020-05-23 12:30:00 Vivek Quinteros ESTIMATED GFR 2020-05-23 12:30:00 Vivek Quinteros Ny thodist POC GLUCOSE 2020-05-23 12:01:00 Elvin Rajput LACTIC ACID LEVEL 2020-05-23 12:00:00 Aminah Og ethodist TROPONIN 2020-05-23 12:00:00 Aminah Og Met hodist POC GLUCOSE 2020-05-23 11:01:00 Elvin Rajput US HEPATIC 2020-05-23 10:50:53 Aminah Og Met hodist US RENAL 2020-05-23 10:28:00 Vivek Quinteros Ny thodist POC GLUCOSE 2020-05-23 10:12:00 Elvin Rajput XR CHEST 1 VW PORTABLE 2020-05-23 10:10:00 Aminah Og [facility] POC GLUCOSE 2020-05-23 09:21:00 Elvin Rajput ECG 12-LEAD 2020-05-23 09:15:48 OrganekAminah Met hodist URINE CULTURE 2020-05-23 08:24:00 OrganekAminah Met hodist POC GLUCOSE 2020-05-23 08:14:00 Elvin Rajput URINALYSIS SCREEN AND 2020-05-23 08:00:00 Organek, Aminah Valencia on [facility] MICROSCOPY, WITH REFLEX TO CULTURE LACTIC ACID LEVEL 2020-05-23 07:20:00 OrganekAminah M ethodist TROPONIN 2020-05-23 07:20:00 OrganekAminah Met [...] Schuler [facility] MAGNESIUM LEVEL 2020-05-23 00:10:00 Veronica Schuler [facility] PHOSPHORUS LEVEL 2020-05-23 00:10:00 Veronica Schuler [facility] VENOUS BLOOD GAS 2020-05-23 00:10:00 OrganekAminah Me thodist PARTIAL THROMBOPLASTIN 2020-05-23 00:10:00 OrganAminah shepherd [facility] TIME (PTT) PROTHROMBIN TIME WITH INR 2020-05-23 00:10:00 OrganekAminah [facility] FIBRINOGEN 2020-05-23 00:10:00 OrganAminah shepherd [facility] B NATRIURETIC PEPTIDE 2020-05-23 00:10:00 OrganekAminah on [facility] HEPATIC FUNCTION PANEL 2020-05-23 00:10:00 Aminah Og LACTIC ACID LEVEL 2020-05-23 00:10:00 LenkaTiffanytena Reilly M [facility] ESTIMATED GFR 2020-05-23 00:10:00 Lenka Aminahtena Reilly [facility] POC GLUCOSE 2020-05-22 20:53:00 Elvin Rajput FIBRINOGEN 2020-05-22 20:10:00 LenkaAminah Met [facility] BASIC METABOLIC PANEL 2020-05-22 20:10:00 Elvin Rajput ESTIMATED GFR 2020-05-22 20:10:00 Elvin Rajput LACTIC ACID LEVEL 2020-05-22 20:10:00 Elvin Rajput HEPATITIS ACUTE PANEL 2020-05-22 19:45:00 Elvin Rajput IONIZED CALCIUM 2020-05-22 18:05:00 Lenka Aminah Reilly [facility] ARTERIAL BLOOD GAS 2020-05-22 18:00:00 Michelle Schmidt [facility] ECG 12-LEAD 2020-05-22 17:56:11 Lenka Aminah Reilly Met hodjohanna PARTIAL THROMBOPLASTIN 2020-05-22 17:40:00 Aminah Og TIME (PTT) PROTHROMBIN TIME WITH INR 2020-05-22 17:40:00 Aminah Og BASIC METABOLIC PANEL 2020-05-22 17:18:00 Elvin Rajput HEPATIC FUNCTION PANEL 2020-05-22 17:18:00 Elvin Rajput LACTIC ACID LEVEL 2020-05-22 17:18:00 Elvin Rajput TROPONIN 2020-05-22 17:18:00 Elvin Rajput ESTIMATED GFR 2020-05-22 17:18:00 Elvin Rajput POC GLUCOSE 2020-05-22 16:58:00 Elvin Rajput PROTHROMBIN TIME WITH INR 2020-05-22 16:15:00 Elvin Rajput PARTIAL THROMBOPLASTIN 2020-05-22 16:15:00 Elvin Rajput TIME (PTT) BLOOD CULTURE, AEROBIC & 2020-05-22 16:05:00 Aminah Og ANAEROBIC BASIC METABOLIC PANEL 2020-05-22 16:00:00 Aminah Og on [facility] ESTIMATED GFR 2020-05-22 16:00:00 Aminah Og [facility] POC GLUCOSE 2020-05-22 16:00:00 Elvin Rajput [facility] BLOOD CULTURE, AEROBIC & 2020-05-22 15:55:00 Aminah Og [facility] ANAEROBIC ECG 12-LEAD 2020-05-22 12:51:06 Aminah Og [facility] POC GLUCOSE 2020-05-22 12:17:00 Elvin Rajput ARTERIAL BLOOD GAS 2020-05-22 12:10:00 Michelle Schmidt stoangela [facility] TROPONIN 2020-05-22 12:00:00 Michelle Schmidt n [facility] LACTIC ACID LEVEL 2020-05-22 12:00:00 Michelle Schmidt [facility] ECG 12-LEAD 2020-05-22 08:34:16 Aminah Og [facility] ECG 12-LEAD 2020-05-22 08:29:22 Elvin Rajput [facility] LACTIC ACID LEVEL 2020-05-22 08:05:00 Aminah Og M [facility] TROPONIN 2020-05-22 08:05:00 Aminah Og [facility] B NATRIURETIC PEPTIDE 2020-05-22 08:05:00 Aminah Og on [facility] PROTHROMBIN TIME WITH INR 2020-05-22 08:05:00 Aminah Og [facility] PARTIAL THROMBOPLASTIN 2020-05-22 08:05:00 Aminah Og [facility] TIME (PTT) FIBRINOGEN 2020-05-22 08:05:00 Aminah Og [facility] HC COMPLETE BLD COUNT 2020-05-22 08:05:00 Aminah Og on [facility] W/AUTO DIFF BASIC METABOLIC PANEL 2020-05-22 08:05:00 OrganAminah shepherd on [facility] IONIZED CALCIUM 2020-05-22 08:05:00 Aminah Og Met [facility]ist MAGNESIUM LEVEL 2020-05-22 08:05:00 OrganAminah shepherd Met hodist ESTIMATED GFR 2020-05-22 08:05:00 Aminah Og Tommie Whitmore hodist POC GLUCOSE 2020-05-22 07:52:00 Elvin Rajput ARTERIAL BLOOD GAS 2020-05-22 07:26:00 Michelle Schmidt LACTIC ACID LEVEL 2020-05-22 06:00:00 Michelle Schmidt [facility] TROPONIN 2020-05-22 06:00:00 Michelle Schmidt IN INSERT 2020-05-22 05:27:16 Michelle Schmidt CATH,ART,PERCUT,SHORTTERM VENOUS BLOOD GAS 2020-05-22 05:00:00 Michelle Schmidt on [facility] POC GLUCOSE 2020-05-22 04:10:00 Elvin Rajput ARTERIAL BLOOD GAS 2020-05-22 03:36:00 Elvin Rajput on [facility] ARTERIAL BLOOD GAS 2020-05-22 02:25:00 Michelle Schmidt TTE COMPLETE, W CONTRAST, 2020-05-22 02:15:00 Michelle Schmidt Ma W DOPPLER ([id number]) XR CHEST 1 VW PORTABLE 2020-05-21 23:40:26 Nieves Lazcano Candy HC CVL NON-TUNNELED 2020-05-21 23:30:00 Pratima Salomon [facility] INSERT 5YRS OR > HC COMPLETE BLD COUNT 2020-05-21 23:22:00 Michelle Schmidt W/AUTO DIFF FIBRINOGEN 2020-05-21 23:22:00 Michelle Schmidt PARTIAL THROMBOPLASTIN 2020-05-21 23:22:00 Michelle Schmidt TIME (PTT) PROTHROMBIN TIME WITH INR 2020-05-21 23:22:00 Michelle Schmidt Ma TROPONIN 2020-05-21 23:22:00 Michelle Schmidt B NATRIURETIC PEPTIDE 2020-05-21 23:22:00 Michelle Schmidt COMPREHENSIVE METABOLIC 2020-05-21 23:07:00 Michelle Schmidt [facility] PANEL IONIZED CALCIUM 2020-05-21 23:07:00 Michelle Schmidt [facility] LACTIC ACID LEVEL 2020-05-21 23:07:00 Michelle Schmidt [facility] MAGNESIUM LEVEL 2020-05-21 23:07:00 Michelle Schmidt [facility] PHOSPHORUS LEVEL 2020-05-21 23:07:00 Michelle Schmidt on [facility] ESTIMATED GFR 2020-05-21 23:07:00 Michelle Schmidt [facility] POC GLUCOSE 2020-05-21 22:55:00 Elvin Rajput [facility] ARTERIAL BLOOD GAS 2020-05-21 22:00:00 Nieves Lazcano [facility] Candy HC COMPLETE BLD COUNT 2020-05-21 21:53:00 Nieves Lazcano on [facility] W/AUTO DIFF Candy COMPREHENSIVE METABOLIC 2020-05-21 21:53:00 Nieves Lazcano [facility] PANEL Candy MAGNESIUM LEVEL 2020-05-21 21:53:00 Nieves Lazcano Met hodist Candy PHOSPHORUS LEVEL 2020-05-21 21:53:00 Nieves Lazcano Me thodist Candy LACTIC ACID LEVEL 2020-05-21 21:53:00 Nieves Lazcano M ethodist Candy IONIZED CALCIUM 2020-05-21 21:53:00 Nieves Lazcano Met hodjohanna Marcanoick TROPONIN 2020-05-21 21:53:00 Nieves Lazcano Met hodjohanna Candy SMEAR REVIEW 2020-05-21 21:53:00 Nieves Lazcano Met ratna Gupta PROTHROMBIN TIME WITH INR 2020-05-21 21:50:00 Elvin Rajput PARTIAL THROMBOPLASTIN 2020-05-21 21:50:00 Elvin Rajput [facility] TIME (PTT) TYPE AND SCREEN 2020-05-21 21:50:00 Elvin Rajput PREPARE RBC 2020-05-21 21:50:00 Michelle Schmidt PREPARE FRESH FROZEN 2020-05-21 21:50:00 Michelle Schmidt PLASMA ECG 12-LEAD 2020-05-21 21:35:38 Nieves Lazcano POC GLUCOSE 2020-05-21 21:32:00 Elvin Rajput POC [...] Rajput POC GLUCOSE 2020-05-21 05:13:00 Elvin Rajput SARS-COV2/RT-PCR ([facility] & 2020-03-29 21:15:00 [facility] Plan of Care Planned Activity Planned Date Details Comments Source Future Scheduled 2020-04-22 INFLUENZA VACCINE Lalitha miller [facility] Test 00:00:00 [code = INFLUENZA VACCINE] Future Scheduled 2003 65+ PNEUMOCOCCAL Tommie [facility] Test 00:00:00 VACCINE (1 of 1 - PPSV23) [code = 65+ PNEUMOCOCCAL VACCINE (1 of 1 - PPSV23)] Future Scheduled 1988 SHINGLES VACCINES (#1) Hawa Goldberg Test 00:00:00 [code = SHINGLES VACCINES (#1)] Future Scheduled 1954 COVID-19 VACCINE (#1) [place] [facility] Test 00:00:00 [code = COVID-19 VACCINE (#1)] Future Scheduled 1948 DIABETES: RETINAL EYE [place] [facility] Test 00:00:00 EXAM [code = DIABETES: RETINAL EYE EXAM] Future Scheduled 1948 DIABETIC FOOT EXAM [place] [facility] Test 00:00:00 [code = DIABETIC FOOT EXAM] Future Scheduled 1950 URINE MICROALBUMIN [place] [facility] Test 00:00:00 [code = URINE MICROALBUMIN] Encounters Start End Encounter Admission Attending Care Care Encounter Source Date/Time Date/Time Type Type Clinicians Facility Department ID 2020-07-20 2020-07-20 Orders Doctor MONICA [id number] 00:00:00 00:00:00 Only Unassigned, LORRI 350.1.13.10 [place] [facility] [id number] [id number] 2020-07-17 2020-07-17 Transition Kaushal Dunbar [id number] 00:00:00 00:00:00 of Care Bobbi Leegr 350.1.13.10 Jonah 4.2.7.2.686 [id number] 2020-05-21 2020-06-06 Inpatient 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 Interpretation Abnormal (test code = 18718-0) [facility] sypbr0789-40-15 05:26:26 Test Item Value Reference Range Interpretation Comments Sodium (test code = 140 135- 148 mEq/L 2951-2) Potassium (test code = 4.2 3.5- 5.0 mEq/L 2823-3) Chloride (test code = 93 98- 112 mEq/L L 2074-0) CO2 (test code = 2027-) 30 24- 31 mEq/L Anion gap (test code = 17@ANIO 7- 15 mEq/L H 48254-5) BUN (test code = 3094-0) 77 mg/dL 8-23 H Creatinine (test code = 1.74 mg/dL 0.5-0.9 H 2160-0) Glucose (test code = 88 mg/dL 65-99 2345-7) Calcium (test code = 10.0 mg/dL 8.8-10.2 84973-0) Protein (test code = 7.4 g/dL 6.3-8.3 -[place] 2885-2) 4.6-7.0 g/dL1 week 4.4-7 .6 g/dL7 months-1y ear 5.1-7 .3 g/dL1-2 years 5.6-7 .5 g/dL>3 years 6.0-8 .0 g/jP19-646 6.3-8 .3 g/dL Albumin (test code = 4.4 g/dL 3.5-5 1751-7) A/G ratio (test code = 1.5 0.7-3.8 1759-0) Alkaline phosphatase 98 U/L 35-104 (test code = 6768-6) AST (test code = 1920-8) 47 U/L 10-35 H ALT (test code = 1742-6) 62 U/L 5-50 H Total bilirubin (test 1.3 mg/dL 0-1.2 H code = 1974-) Lab Interpretation (test Abnormal code = 05416-3) [facility] MethodistMagnesium qbisq1208-26-64 05:26:26 Test Item Value Reference Range Interpretation Comments Magnesium (test code = 44040-0) 1.9 mg/dL 1.6-2.4 Reilly MethodistEstimated [id number] 05:26:26 Test Item Value Reference Range Interpretation Comments Estimated GFR (test 27 mL/min/1.73 m2 Fritz dwyer Units code = 5488) InterpretationG 1 >=90 Paty l or highG2 60-89 Mildly decrease dG3a 45-59 Mil dly to moderately decr wtzhpF0e 30-44 Moderately to s everely decreasedG4 15-29 Severe ly decreasedG5 <15 Kidney renée lureThe eGFR was calcul ated using the [facility] Kidney Disease Epidemiology Collaboration ( CKD-EPI) equation. Interpretation is based on recommendati ons of the National Ki dney Foundation-Kidn ey Disease Outcome s Quality Initiat judi (NKF-KDOQI) pub lished in 2013. Lab Interpretation Abnormal (test code = 37726-5) Re[facility] MethodistPhosphorus dedya9938-65-57 05:26:24 Test Item Value Reference Range Interpretation Comments Phosphorus (test code = 2777-1) 2.9 mg/dL 2.4-4.5 Reilly MethodistCBC with platelet and scyclwkldamg4193-60-83 04:59:46 Test Item Value Reference Range Interpretation Comments WBC (test code = 73870-8) 8.46 4.50- 11.00 k/uL RBC (test code = 07345-1) 3.92 m/uL 4.2-5.5 L HGB (test code = 718-7) 10.5 g/dL 12-16 L HCT (test code = 4544-3) 32.6 % 37-47 L MCV (test code = 787-2) 83.2 fL 82-100 MCH (test code = 785-6) 26.8 pg 27-34 L MCHC (test code = 786-4) 32.2 g/dL 31-37 RDW - SD (test code = 50.7 fL 37-55 11976-6) MPV (test code = 87886-1) 11.5 fL 8.8-13.2 Platelet count (test code 299 150- 400 k/uL = 11380-4) Nucleated RBC (test code 0.00 /100 WBC = 85073-2) Neutrophils (test code = 76.2 % 39-69 H 36933-2) Lymphocytes (test code = 10.2 % 25-45 L 19711-0) Monocytes (test code = 8.4 % 0-10 55569-5) Eosinophils (test code = 3.8 % 0-5 16749-0) Basophils (test code = 0.8 % 0-1 27894-2) Immature granulocytes 0.6 % 0-1 "Immat ure (test code = 72020-3) granul ocytes" (promyelocytes, myelocytes, metamyelocytes) Lab Interpretation (test Abnormal code = 45331-3) [facility] kzerv8438-14-40 07:13:08 Test Item Value Reference Range Interpretation Comments Sodium (test code = 2951-2) 135 135- 148 mEq/L Potassium (test code = 2823-3) 4.6 3.5- 5.0 mEq/L Chloride (test code = 2075-0) 90 98- 112 mEq/L L CO2 (test code = 2028-9) 26 24- 31 mEq/L Anion gap (test code = 37294-4) 19@ANIO 7- 15 mEq/L H BUN (test code = 3094-0) 84 mg/dL 8-23 H Creatinine (test code = 2160-0) 1.68 mg/dL 0.5-0.9 H Glucose (test code = 2345-7) 96 mg/dL 65-99 Calcium (test code = 99390-1) 9.6 mg/dL 8.8-10.2 Lab Interpretation (test code = Abnormal 62093-9) [place] MethodistHepatic function tpyqr7465-16-88 07:54:39 Test Item Value Reference Range Interpretation Comments Albumin (test code = 3.9 g/dL 3.5-5 1750-7) Total bilirubin (test 1.3 mg/dL 0-1.2 H code = 1974-) Bilirubin direct (test 0.7 mg/dL 0-0.3 H code = 1967-) Alkaline phosphatase 81 U/L 35-104 (test code = 6768-6) Protein (test code = 6.5 g/dL 6.3-8.3 -[place] 2885-2) 4.6-7.0 g /dL1 week 4.4-7.6 g/dL 7 months-1year 5.1-7.3 g/dL 1-2 years 5.6-7.5 g/dL>3 years 6.0-8.0 g/lG46-439 6.3-8. 3 g/dL ALT (test code = 1742-6) 68 U/L 5-50 H AST (test code = 1920-8) 57 U/L 10-35 H Lab Interpretation (test Abnormal code = 34281-4) Re[facility] MethodistDigoxin kexqk6625-21-30 07:54:39 Test Item Value Reference Range Interpretation Comments Digoxin (test code = 1.0 ng/mL 0.8-2 For phillip id Digoxin 41115-6) results, at [address] 6 hours should el apse between time of last dose and collec tion of blood.Otherwise , result may be false high.Therapeuti c Range:0.8 - 2.0 ng/mL Reilly MethodistPartial thromboplastin time, rvizachos6127-39-51 07:49:07 Test Item Value Reference Range Interpretation Comments PTT (test code = 30.7 23.0- 36.0 [place] [address]-2) unfractionated heparin is61.0-112.0 se conds which corresponds to Anti-Xa0.3-0.7 U/ml. Tom[place] MethodistUrinalysis screen and microscopy, with reflex to culture 2020-06-02 03:36:27 Test Item Value Reference Range Interpretation Comments Specimen site (test code = Random void 9821494) Color, UA (test code = 5778-6) Straw Appearance, UA (test code = Clear 5767-9) Specific gravity, UA (test code = 1.008 1.001-1.035 5811-5) pH, UA (test code = 5803-2) 5.0 5.0-8.5 Protein, UA (test code = 11416-7) 1+ Negative A Glucose, UA (test code = 72355-8) Negative Negative Ketones, UA (test code = 2514-8) Negative Negative Bilirubin, UA (test code = Negative Negative 5770-3) Blood, UA (test code = 5794-3) Negative Negative Nitrite, UA (test code = 5802-4) Negative Negative Urobilinogen, UA (test code = <2.0 <2.0 02804-5) Leukocyte esterase, UA (test code Negative Negative = 5799-2) Epithelial cells, UA (test code = <1 /HPF 5787-7) Round epithelial cells, UA (test <1 0- 1 /HPF code = 67150-4) WBC, UA (test code = 5821-4) 1 0- 4 /HPF RBC, UA (test code = 72277-0) None seen 0- 5 /HPF Bacteria, UA (test code = None seen None seen 00610-5) Yeast, UA (test code = 36287-2) Few A Yeast with pseudohyphae, UA (test None seen code = 02239-1) Lab Interpretation (test code = Abnormal 80293-7) Tommie GoldbergUrine pieochl7955-28-50 03:32:20 Test Item Value Reference Range Interpretation Comments Urine culture (test SEE COMMENT Bacteriu mahin screen code = 9915582) negative. [place] AragonistCOVID-19 qualitative SVA0917-59-70 02:33:16 Test Item Value Reference Range Interpretation Comments Interpretation (test Negative results do code = 1129168) not preclude 2019-nCoV infection and should not be used as the sole basis for treatment or other patient management decisions. Negative results must be combined with clinical observations, patient history, and epidemiological information. COVID-19 qualitative Not-Detected Not-Detected PCR result (test code = 62195-2) COVID-19 qualitative See link below for C ase Number: PCR (test code = PDF Lab Report [id number]) Tommie MethodistB natriuretic kicozfh6519-57-84 01:20:28 Test Item Value Reference Range Interpretation Comments BNP (test code = >5000 0-100 [place] [address]-5) BNP most likely represents rece nt infusionof patrica mbinant BNP. For monito ring, because of the short half-life of BN P (20 minutes), measu rements taken 2 hours aftercessation of treatment again reflects the le charlie of endogenousBNP. Lab Interpretation Abnormal (test code = 97660-7) Reilly MethodistAnti Xa, sivcjampnhrxnm7125-89-86 16:45:18 Test Item Value Reference Range Interpretation Comments Anti Xa, unfractionated Footnote 0.3-0.7 Ther apeutic Range: (test code = 3274-8) 0.30 - 0.70 U/mLUnable to p erform testing, specim en is QNS_. Recollec t requested for X AUFH (tests). [address] [place]/A8 (name/location) notified by Adan _ (tech ID) at 1 7:00 05/28/2020 (date/time). C redit issued. Re[facility] MethodistECG 12 nkgo7131-22-81 22:25:35 Test Item Value Reference Range Interpretation [...] of 25-MAY-2020 09:22,-No significant change was found- Reilly MethodistIonized kmzajnt3940-70-61 05:33:23 Test Item Value Reference Range Interpretation Comments pH (test code = 2753-2) 7.56 Ionized calcium (test code = 1.02 mmol/L 1.11-1.32 L ) Lab Interpretation (test code = Abnormal 74721-0) [place] MethodistBlood culture, aerobic & svrrckqjr6724-62-84 19:03:03 Test Item Value Reference Range Interpretation Comments Blood culture No growth Specimen isolate (test after 5 days InformationSpe cimen code = 600-7) of Source: BloodS pecimen incubation. Site: Wrist, Le ft [place] MethodistProthrombin time with QSK9025-86-23 01:18:04 Test Item Value Reference Range Interpretation Comments Prothrombin time (test 20.3 11.5- 14.5 sec H code = 5902-2) INR (test code = 1.7 The [facility] 63584-2) Normalized Rati o (INR) is a therapeuti c monitoring tool for patients who ar e stable on oral anticoagulant t herapy. An INR of 2.0-3 .0 is suggested for d eep vein thrombosis/pulm onary embolism. Lab Interpretation Abnormal (test code = 99624-8) [place] MethodistXR Chest 1 Vw Jmhwhawr8413-30-11 10:52:56Hm Interface, Radiology Results - 05/26/2020 10:56 [...] pear stable without evidence of fracture or migration.[facility]-[id number] and approved by vice president of talent management/fellow: Hernan Turcios M.D.I, Connor Alarcon MD, personally reviewed the images and resident's/fellow's findings and agree with the final report.[facility] MethodistHemoglobin R6z7759-20-38 10:15:18 Test Item Value Reference Range Interpretation Comments Hemoglobin A1C (test 10.7 % 4-5.6 H HbA1c c utoffs for code = 92248-4) diagnosing diabetes:4.0% - 5.6% = normal5.7% - 6.4% = increased risk for diabetes (prediabetes)9> =6.5% = dozyvnto6Gyry s for glycemic contro l (ADA 2016)< 7.0% Ta rget for non adults with deangelo betes. More or less stringent targe ts may be appropriate for individual tod ents. <7.5% Target for Children and adolescents wit h type 1 diabetes. Lab Interpretation (test Abnormal code = 06033-6) Reilly MethodistArterial blood lqm1625-20-09 00:55:36 Test Item Value Reference Range Interpretation Comments pH, arterial (test code = 2744-1) 7.46 7.35-7.45 H pCO2, arterial (test code = 41 35- 45 mmHg 2018-) pO2, arterial (test code = 82 80- 90 mmHg 3-7) Bicarbonate, arterial (test code 28.1 mmol/L 21-28 H = 1960-4) Base excess, arterial (test code 4 -2 - 2 mEq-L H = 1925-7) O2 saturation, arterial (test 98 % 95-100 code = 2708-6) Lab Interpretation (test code = Abnormal 28786-7) Tom[place] AragonistIonized calcium, aqmhugpl1951-49-34 00:55:36 Test Item Value Reference Range Interpretation Comments Ionized calcium, arterial (test 1.10 mmol/L 1.11-1.32 L code = 01848-3) Lab Interpretation (test code = Abnormal 42157-3) [place] AragonXkinwpuzpVMP0992-88-33 00:53:48 Test Item Value Reference Range Interpretation Comments GGT (test code = 2324-2) 76 U/L 0-39 H Lab Interpretation (test code = Abnormal 06525-4) Tommie GoldbergVancomycin level, ebzinr2982-25-69 00:52:02 Test Item Value Reference Range Interpretation Comments Vancomycin, random (test code = 16.0 ug/mL 46287-6) Re[facility] MethodistVenous blood mqp5615-82-17 00:28:29 Test Item Value Reference Range Interpretation Comments pH, venous (test code = 2746-6) 7.40 7.32-7.42 pCO2, venous (test code = 1-4) 45 45- 51 mmHg pO2, venous (test code = 2705-2) 39 25- 40 mmHg Base excess, venous (test code = 3 meq/L -2-2 H 1927-3) O2 saturation, venous (test code 71 % 40-70 H = 2711-0) Bicarbonate, venous (test code = 27.4 mmol/L 21-28 56823-5) Lab Interpretation (test code = Abnormal 43958-4) [place] MethodistSodium snkvz5512-06-47 17:22:46 Test Item Value Reference Range Interpretation Comments Sodium (test code = 2951-2) 131 135- 148 mEq/L L Lab Interpretation (test code = Abnormal 09807-4) [place] MethodistCreatinine bpufp3469-03-25 09:08:26 Test Item Value Reference Range Interpretation Comments Creatinine (test code = 2160-0) 3.25 mg/dL 0.5-0.9 H Lab Interpretation (test code = Abnormal 86210-5) [place] MethodistPotassium aypyd3530-92-68 09:08:26 Test Item Value Reference Range Interpretation Comments Potassium (test code = 2823-3) 3.3 3.5- 5.0 mEq/L L Lab Interpretation (test code = Abnormal 78163-0) [place] MethodistBUN ylcvs7665-67-92 09:08:26 Test Item Value Reference Range Interpretation Comments BUN (test code = 3094-0) 47 mg/dL 8-23 H Lab Interpretation (test code = Abnormal 67585-0) [place] XeayadftvXxzoiweiez6440-79-45 01:22:50 Test Item Value Reference Range Interpretation Comments Fibrinogen (test code = 18806-4) 265 mg/dL 200-450 [place] MethodistLactic acid hluct5676-72-00 01:16:27 Test Item Value Reference Range Interpretation Comments Lactic acid (test code = 85317-7) 2.0 mmol/L 0.5-2.2 [place] MethodistUS Enqxpdd6517-61-82 12:16:06Hm Interface, Radiology Results 05/23/2020 12:19 PM [...] the main portal vein.4.A smallpleural effusion is suspected.[facility]-[id number] MaheshistUS Eyzyl0577-00-97 11:09:18Hm Interface, Radiology Results 05/23/2020 11:12 AM CDTEXAMINATION: US RENALCLINICAL HISTORY: Renal failure chronic (kidney disease), patient ANURICCOMPARISON: June 16, 2019IMPRESSION: The right kidney measures 9.6 x 5.1 x 4.7.The left kidney measures 10.1 x 5.7 x 5.1.The kidneys are normal in size and echogenicity. There is no evidence of renal mass, calculi, or hydronephrosis.A catheter is present within a nondistended bladder.[facility]-[id number] MethodistHepatitis acute dnrqp2279-82-66 21:25:25 Test Item Value Reference Range Interpretation Comments Hepatitis A IgM (test Non-reactive Non-reactive code = 41161-0) Hepatitis B core IgM Non-reactive Non-reactive (test code = 27024-7) Hepatitis B surface Ag Non-reactive Non-reactive (test code = 5195-3) Hepatitis C Ab (test Non-reactive Non-reactive code = 28591-6) BERNADETTE (test code = BERNADETTE) LACID results called to and read back by BRE PINTO(name/location) at 05/22/2020 20:45 (date/time) by PC. [place] PresybeterianTransthoracic Echocardiogram Complete, (w Contrast, Strain and 3D if needed)2020-05-22 10:29:00Interface, Radiology Results In - 05/22/2020 10:29 AM CDT Echocardiography Report [address] [address] Pat.Name: NASIR DAS.ID: [id number].Date: 05/22/2020 Refer.MD: ELVIN RAJPUT MD Exam Time: 12:55:00 AM Study Type:Routine Echo Height: 68in Weight: 161lb BSA: 1.87 m2 Age: 1 1940,79Y Sex: FEMALE BP: 150/87 HR: 53 bpm Sonogrphr: Jailyn Torres RDCS, RVT Pat. Stat.:Inpatient Room: [place] [address] Study Status:Final Echo Event ID:[id number] Order ID: [id number] Reason forStudy:Acute hemo instability with hypotension (sys<100mmHg)History [...] meanRAP of 15-20 mmHg. MEASUREMENTS: 2DParasternal Long [place] Ao An 1.6 cm LVPWd 1.5 cm [...] TV PG 30 mmHg Signed 05/22/2020 10:29 Charito Mcneal M.D.[place] [facility] Smear zhjpbv9492-48-30 05:29:43 Test Item Value Reference Range Interpretation Comments Platelet slide review (test code = Decreased A 06036-9) Anisocytosis (test code = 702-1) Moderate Polychromasia (test code = Moderate 25134-9) Ovalocytes (test code = 774-0) Moderate Ramses cells (test code = 7790-9) Many A Acanthocytes (test code = 7789-1) Occasional Enlarged platelets (test code = Moderate A 40551-5) Lab Interpretation (test code = Abnormal 72579-4) [place] MethodistArterial Line Sojeltgey0862-69-81 05:27:16Michelle Schmidt NP 05/22/2020 5:28 AMArterial Line [...] tolerance of procedure: Tolerated well, no immediate complicationsK[place]ney MethodistPrepare RBC, 4 Zcvjp0901-15-17 01:59:00 Test Item Value Reference Range Interpretation Comments Product name (test code Red Blood Cells -1, = 25) Leukored Unit number (test code [id number] = [id number]) Product code (test code E2600G95 = 3092) Dispense status (test Returned to not code = 24) transfused Blood expiration date (test code = 302) Blood type code (test 7300 code = 308) Blood type (test code = B POSITIVE 1314) Compatibility (test Compatible code = 6400) [place] MethodistPrepare fresh frozen plasma, 3 Ujweb9965-60-89 01:59:00 Test Item Value Reference Range Interpretation Comments Product name (test code = 25) Thawed Plasma Unit number (test code = [id number]) Product code (test code = 3092) [id number] Dispense status (test code = Transfused 24) Blood expiration date (test code = 302) Blood type code (test code = 7300 308) Blood type (test code = 1314) B POSITIVE Compatibility (test code = Not required 6400) [place] MethodistCentral Line Gmtoilvvx8375-39-54 23:30:00Pratima Salomon NP 05/22/2020 5:23 AMCentral Line [...] tolerance of procedure: Tolerated well, no immediate complicationsKearney MethodistType and screen 2020-05-21 23:07:00 Test Item Value Reference Range Interpretation Comments ABO grouping (test code = 883-9) B Rh type (test code = 22008-4) POS Antibody screen (gel) (test code = NEG 890-4) [place] MethodistLipid honad3017-70-53 07:43:14 Test Item Value Reference Interpretation Comments Range Cholesterol (test 108 mg/dL <200 code = 2093-3) Triglycerides (test 67 mg/dL <150 code = 2571-8) HDL cholesterol 41 mg/dL >40 (test code = 2085-9) LDL cholesterol 58 mg/dL <100 Result obtai erna by direct (test code = 2089-1) LDL suzan surement Lipid panel SeeBelow Total Cholester ol (mg/dL) interpretation (test < 200 code = 87711-1) Desirable 200-239 Borderline -high >=240 Hi gh [...] personswith high triglycerides ( >=200 mg/dL) [place] MethodistT4, dpxb1588-79-50 07:41:22 Test Item Value Reference Range Interpretation Comments T4, free (test code = 3024-7) 1.5 ng/dL 0.9-1.7 [place] AragonistThyroid stimulating ekyenmb4409-02-01 07:41:22 Test Item Value Reference Range Interpretation Comments TSH (test code = 3016-3) 5.93 0.27- 4.20 uIU/mL H Lab Interpretation (test code = Abnormal 60159-2) [facility] RosenbaumARS-CoV2/RT-PCR ([facility])2020-03-30 13:09:00 Test Item Value Reference Range Interpretation Comments SARS-COV2/RT-PCR Negative Not Detected, (test code = Negative 49432-6) SARS-COV-2 [facility] PERFORMING LAB (test code = 52955-7) BERNADETTE (test code = Negative result for [...] of the Act. Fact Sheet for Healthcare Providers:https://www.[employer]/sites/default/f michele/product/documents/F act_Sheet_HC_Providers_L pah_XLDH-VkM-3.pdf Fact Sheet for Healthcare Patients:https://www.[employer].com/sites/default/fi les/product/documents/Fa ct_Sheet_Patients_Ly_S ARS-CoV-2.pdf Performing Laboratory:[facility] [place] [address] [facility] ([facility])2020-03-30 13:09:00 Test Item Value Reference Range Interpretation Comments SARS-COV2/RT-PCR (test code = Negative Not Detected, Negative 5691085) SARS-COV-2 PERFORMING LAB [facility] (test code = 2108646) Negative result for this test determines that [...] 564(g) of the Act.Fact Sheet for Healthcare Providers:https://www.Quippi/sites/default/files/product/documents/Fact_Shee l_JG_Tailqgnra_Xeao_LMCA-EzH-5.pdfFact Sheet for Healthcare Patients:https://www.Quippi/sites/default/files/product/ documents/Oubx_Sqxbk_Ftrhjihc_Gkka_XBIF-AaG-9.pdfPerforming Laboratory:[facility] [place] [address]
[2020-09-07 09:44] LABS: Absolute Lymphocytes (CBC) 0.3 K/uL (0.7-4.9); Basophils % 0.4 % (0-1.3); Hematocrit 42.9 % (36.0-45.0); Lymphocytes % 3.6 % (15.3-44.8); MPV 9.5 fL (7.6-11.3); RBC Red Blood Cell Count 4.99 M/uL (3.86-4.86)
[2020-09-07 09:47] LABS: Protime INR 4.7
[2020-09-07 10:13] LABS: Albumin 2.6 g/dL (3.4-5.0); Bilirubin Direct 1.3 mg/dL (0-0.2); Bilirubin Total 1.7 mg/dL (0.2-1.0); Potassium 5.1 mmol/L (3.5-5.1); Protein, Total 6.4 g/dL (6.4-8.2); Troponin (Emerg Dept Use Only) 0.06 ng/mL (0.0-0.045)
--- NOTE | 2020-09-07 10:17 | RAD REPORT ---
EXAM DESCRIPTION: RAD - Chest Single View - 09/07/2020 9:32 am CLINICAL HISTORY: AMS Chest pain. COMPARISON: Chest Single View dated 07/19/2020; Chest Single View dated 07/18/2020; Chest Single Vie w dated 05/20/2020; Chest Single View dated 03/29/2020 FINDINGS: Portable technique limits examination quality. Mild interstitial pulmonary edema. The heart is prominent in size with sternotomy wires present. Aort ic atherosclerosis. Single lead stimulator device seen. IMPRESSION: Mild CHF.
[2020-09-07] MEDS ORDERED: NA CHLORIDE 0.9% 1,000 ML ONE (10:21)
[2020-09-07] MEDS ORDERED: FUROSEMIDE 40 MG/4 ML VIAL ONE (10:27)
[2020-09-07 10:31] LABS: Urine Blood 3+ (NEG); Urine Glucose NEGATIVE (NEG); Urine Protein 2+ (NEG); Urine Specific Gravity 1.015 (1.005-1.030)
[2020-09-07 10:34] LABS: Urine Bacteria >50 /HPF (<20); Urine RBC <5 /HPF (NONE SEEN)
[2020-09-07 10:52] LABS: Anisocytosis 1+; Blood Morphology Comment NOTED (NOT SEEN); Platelet Estimate ADEQ; White Blood Cell Scan OK (OK)
[2020-09-07] MEDS ORDERED: Levofloxacin 750mg IV 750 MG/150 ML BAG IV ONE (11:00)
--- NOTE | 2020-09-07 11:06 | ER ---
Nurse's Notes [facility] Name: Lilian Avila Age: 79 yrs Sex: Female : 1940 Arrival Date: 09/07/2020 Time: 08:52 Bed 6 Private MD: Diagnosis: Urinary tract infection, site not specified;Unspecified diastolic (congestive) heart failure;Altered mental status, unspecified Presentation: 09/07 08:52 Chief complaint: EMS states: FACILITY STATES PATIENT "MORE ALTERED THAN USUAL" WITH bp RECENT ABNORMAL LABS. Coronavirus screen: At this time, the client does not indicate any symptoms associated with coronavirus-19. Ebola Screen: No symptoms or risks identified at this time. Initial Sepsis Screen: Does the patient meet any 2 criteria? No. Patient's initial sepsis screen is negative. Does the patient have a suspected source of infection? No. Patient's initial sepsis screen is negative. Risk Assessment: Do you want to hurt yourself or someone else? Patient reports no desire to harm self or others. Note PER EMS, PT AT BASELINE. Onset of symptoms is unknown. Care prior to arrival: Glucose check: 100. 08:52 Method Of Arrival: EMS: [facility] bp 08:52 Acuity: JARRETT 3 bp Triage Assessment: 09:00 General: Appears in no apparent distress. uncomfortable, ill, obese, Behavior is AT bp BASELINE. Pain: Denies pain. EENT: No deficits noted. Neuro: Level of Consciousness is awake, obeys commands, confused, Oriented to person. Cardiovascular: Rhythm is sinus rhythm. Respiratory: Airway is patent Respiratory effort is even, labored. GI: No signs and/or symptoms were reported involving the gastrointestinal system. : No signs and/or symptoms were reported regarding the genitourinary system. Derm: No deficits noted. Musculoskeletal: No deficits noted. Historical: - Allergies: 09:00 PENICILLINS (rash); bp 09:00 Morphine (Hallucinations/agitation); bp 09:00 Codeine (Hallucinations/agitation); bp 09:00 Bactrim; bp - PMHx: 09:00 Myocardial infarction; Hypertension; Diabetes - NIDDM; CHF; Dementia; Atrial Fib; GERD; bp - Immunization history:: Adult Immunizations up to date. - Social history:: Smoking status: Patient denies any tobacco usage or history of. Screenin:00 Abuse screen: Denies threats or abuse. Denies injuries from another. Nutritional bp screening: No deficits noted. Tuberculosis screening: No symptoms or risk factors identified. Fall Risk None identified. Assessment: 09:00 General: SEE TRIAGE NOTE. bp 10:00 Reassessment: Patient appears in no apparent distress at this time. No changes from bp previously documented assessment. Patient and/or family updated on plan of care and expected duration. Pain level reassessed. ALL CURRENT ORDERS COMPLETED. 12:27 Reassessment: Patient appears in no apparent distress at this time. Patient and/or rb3 family updated on plan of care and expected duration. Pain level reassessed. Vital Signs: 08:52 BP 119 / 63; Pulse 60; Resp 18; Temp 98; Pulse Ox 100% on 4 lpm NC; bp 09:45 BP 120 / 78; Pulse 61; Resp 12; Pulse Ox 95% on 4 lpm NC; bp 10:15 BP 117 / 81; Pulse 66; Resp 20; Pulse Ox 100% on 4 lpm NC; bp 11:15 BP 121 / 72; Pulse 67; Resp 14; Pulse Ox 95% on 4 lpm NC; rb3 12:15 BP 129 / 81; Pulse 71; Resp 12; Pulse Ox 95% on 4 lpm NC; rb3 ED Course: 08:52 Patient arrived in ED. bp 08:55 Triage completed. bp 08:55 Sarah Vargas FNP-C is PHCP. snw 08:55 Alireza Saul MD is Attending Physician. snw 09:00 Arm band placed on. bp 09:00 Patient has correct armband on for positive identification. Bed in low position. Call bp light in reach. Side rails up X2. playground monitor on. Pulse ox on. NIBP on. 09:00 Inserted saline lock: 20 gauge in right EJ, using aseptic technique. Blood collected. bp 09:32 Vincenzo Solis, AFUA is Primary Nurse. bp 09:32 XRAY Chest (1 view) In Process Unspecified. EDMS 09:54 EKG done, COVID swab sent to lab. mh5 09:55 Ferritin Sent. mh5 09:55 Basic Metabolic Panel Sent. mh5 09:55 Blood Culture Adult (2) Sent. mh5 09:56 Basic Metabolic Panel Sent. mh5 09:56 CBC with Diff Sent. mh5 09:[address] [facility] 09:[address] [facility] 09:56 NT PRO-BNP Sent. [facility] 09:56 Troponin (emerg Dept Use Only) Sent. [facility] 10:00 Mckeon cath inserted, using sterile technique, 16 Fr., by ri, balloon inflated, to rb3 gravity drainage. 11:05 Efra Dye MD is Hospitalizing Provider. snw 12:48 No provider procedures requiring assistance completed. Patient admitted, IV remains in bp place. Administered Medications: 10:00 Drug: NS 0.9% 1000 ml Route: IV; Rate: 75 ml/hr; Site: right jugular; bp 12:48 Follow up: IV Status: Infusion continued bp 10:18 Drug: Lasix 40 mg Route: IVP; Site: right jugular; bp 10:52 Follow up: Response: No adverse reaction bp 10:45 Drug: LevaQUIN 750 mg Volume: 150 ml; Route: IVPB; Infused Over: 90 mins; Site: right bp jugular; 12:48 Follow up: IV Status: Completed infusion; IV Intake: 150ml bp Intake: 12:48 IV: 150ml; Total: 150ml. bp Outcome: 11:05 Decision to Hospitalize by Provider. snw 12:45 Admitted to Med/surg accompanied by tech, family with patient, via wheelchair, with bp chart, Report called to MICKEY CAAL 12:45 Condition: stable 12:45 Instructed on the need for admit. 13:23 Patient left the ED. bp Signatures: Dispatcher MedHost EDMS Sarah Vargas FNP-C RECRUITING SPECIALIST-Lilia Hernandez [facility] Vincenzo Solis, RN RN bp Lucina Romero, RN RN rb3 Corrections: (The following items were deleted from the chart) 09:57 09:55 CORONAVIRUS+MR.LAB.REECE drawn and sent. [address]
--- NOTE | 2020-09-07 11:06 | EDPHYS ---
Physician Documentation [facility] Name: Lilian Avila Age: 79 yrs Sex: Female : 1940 Arrival Date: 09/07/2020 Time: 08:52 Bed 6 Private MD: ED Physician Alireza Saul HPI: 09/07 09:28 This 79 yrs old Female presents to ER via EMS with complaints of Abnormal Lab snw Results. 09:28 [place] staff states pt is more altered than normal. Onset: The symptoms/episode snw began/occurred gradually. Severity of symptoms: At their worst the symptoms were moderate. It is unknown whether or not the patient has had similar symptoms in the past. It is unknown whether or not the patient has recently seen a physician. apparently Na and K are abnormal. Historical: - Allergies: 09:00 PENICILLINS (rash); bp 09:00 Morphine (Hallucinations/agitation); bp 09:00 Codeine (Hallucinations/agitation); bp 09:00 Bactrim; bp - PMHx: 09:00 Myocardial infarction; Hypertension; Diabetes - NIDDM; CHF; Dementia; Atrial Fib; GERD; bp - Immunization history:: Adult Immunizations up to date. - Social history:: Smoking status: Patient denies any tobacco usage or history of. ROS: 09:26 Constitutional: Negative for fever, chills, and weight loss, pt said to be "more snw altered than normal with some lab abnormalities" Eyes: Negative for injury, pain, redness, and discharge, ENT: Negative for injury, pain, and discharge, Neck: Negative for injury, pain, and swelling. 09:26 Cardiovascular: 09:26 Unable to obtain ROS due to altered mental status, NH states pt is more altered, has abnormal labs. Exam: 09:22 Head/Face: Normocephalic, atraumatic. snw 09:22 Abdomen/GI: Soft, non-tender, with normal bowel sounds. No distension or tympany. No guarding or rebound. No evidence of tenderness throughout. Back: No spinal tenderness. No costovertebral tenderness. Full range of motion. Skin: Warm, dry with normal turgor. Normal color with no rashes, no lesions, and no evidence of cellulitis. MS/ Extremity: Pulses equal, no cyanosis. Neurovascular intact. Full, normal range of motion. 09:22 ENT: Nares patent. No nasal discharge, no septal abnormalities noted. Tympanic membranes are normal and external auditory canals are clear. Oropharynx with no redness, swelling, or masses, exudates, or evidence of obstruction, uvula midline. Mucous membranes moist. Neck: Trachea midline, no thyromegaly or masses palpated, and no cervical lymphadenopathy. Supple, full range of motion without nuchal rigidity, or vertebral point tenderness. No Meningismus. Chest/axilla: Normal chest wall appearance and motion. Nontender with no deformity. No lesions are appreciated. Cardiovascular: Regular rate and rhythm with a normal S1 and S2. + murmur, no rubs. Normal PMI, + 2cm JVD. No pulse deficits. Anasarca 09:22 Constitutional: The patient appears awake, listless. 09:22 Eyes: Periorbital structures: appear normal, Pupils: no acute changes, Extraocular movements: no acute changes, tearing, mild purulent discharge to right inner canthus. 09:22 Respiratory: the patient does not display signs of respiratory distress, Respirations: shallow respirations, that is moderate, Breath sounds: bronchial sounds, that are moderate. 09:22 Neuro: Orientation: unable to test, does not answer questions, Mentation: responsive to voice seizure activity, is not displayed by the patient, Abnormal movements: there are no abnormal movements. Vital Signs: 08:52 BP 119 / 63; Pulse 60; Resp 18; Temp 98; Pulse Ox 100% on 4 lpm NC; bp 09:45 BP 120 / 78; Pulse 61; Resp 12; Pulse Ox 95% on 4 lpm NC; bp 10:15 BP 117 / 81; Pulse 66; Resp 20; Pulse Ox 100% on 4 lpm NC; bp 11:15 BP 121 / 72; Pulse 67; Resp 14; Pulse Ox 95% on 4 lpm NC; rb3 12:15 BP 129 / 81; Pulse 71; Resp 12; Pulse Ox 95% on 4 lpm NC; rb3 MDM: 09:01 Patient medically screened. snw 11:06 Data reviewed: vital signs, nurses notes. Data interpreted: Pulse oximetry: on room air snw is 100 %. Interpretation: normal. Counseling: I had a detailed discussion with the patient and/or guardian regarding: the historical points, exam findings, and any diagnostic results supporting the discharge/admit diagnosis, lab results, radiology results, the need for further work-up and treatment in the hospital. Physician consultation: Efra Dye MD was called at 11:06, regarding admission. 09/07 08:58 Order name: Basic Metabolic Panel snw 09/07 08:58 Order name: CBC with Diff snw 09/07 08:58 Order name: LFT's; Complete Time: 10:16 snw 09/07 08:58 Order name: Magnesium; Complete Time: 10:16 snw 09/07 08:58 Order name: NT PRO-BNP; Complete Time: 10:16 snw 09/07 08:58 Order name: PT-INR; Complete Time: 09:49 snw 09/07 08:58 Order name: Troponin (emerg Dept Use Only); Complete Time: 10:16 snw 09/07 08:58 Order name: Urine Culture snw 09/07 08:58 Order name: Urine Microscopic Only; Complete Time: 10:35 snw 09/07 08:58 Order name: Procalcitonin; Complete Time: 10:09 snw 09/07 08:58 Order name: Lactate; Complete Time: 09:49 snw 09/07 08:59 Order name: Basic Metabolic Panel; Complete Time: 10:16 EDMS 09/07 08:59 Order name: CBC with Automated Diff; Complete Time: 10:53 EDMS 09/07 09:22 Order name: Blood Culture Adult (2) snw 09/07 08:58 Order name: FSBS; Complete Time: 09:25 snw 09/07 08:58 Order name: XRAY Chest (1 view); Complete Time: 10:25 snw 09/07 08:58 Order name: EKG; Complete Time: 08:59 snw 09/07 08:58 Order name: Cardiac monitoring; Complete Time: 09:33 snw 09/07 08:58 Order name: EKG - Nurse/Tech; Complete Time: 09:33 snw 09/07 08:58 Order name: IV Saline Lock; Complete Time: 09:33 snw 09/07 08:58 Order name: Labs collected and sent; Complete Time: 09:33 snw 09/07 09:22 Order name: Ferritin; Complete Time: 09:58 snw 09/07 09:27 Order name: Glucose, Ancillary Testing; Complete Time: 09:30 EDMS 09/07 10:17 Order name: Urine Dipstick--Ancillary (enter results); Complete Time: 10:32 bd 09/07 10:52 Order name: CBC Smear Scan; Complete Time: 10:53 EDMS 09/07 10:54 Order name: SARS-COV-2 RT PCR; Complete Time: 10:55 EDMS 09/07 08:58 Order name: O2 Per Protocol; Complete Time: 09:33 snw 09/07 08:58 Order name: O2 Sat Monitoring; Complete Time: 09:32 snw 09/07 08:58 Order name: Mckeon; Complete Time: 10:10 snw 09/07 08:58 Order name: Urine Dipstick-Ancillary (obtain specimen); Complete Time: 10:18 snw Administered Medications: 10:00 Drug: NS 0.9% 1000 ml Route: IV; Rate: 75 ml/hr; Site: right jugular; bp 12:48 Follow up: IV Status: Infusion continued bp 10:18 Drug: Lasix 40 mg Route: IVP; Site: right jugular; bp 10:52 Follow up: Response: No adverse reaction bp 10:45 Drug: LevaQUIN 750 mg Volume: 150 ml; Route: IVPB; Infused Over: 90 mins; Site: right bp jugular; 12:48 Follow up: IV Status: Completed infusion; IV Intake: 150ml bp Disposition: 09/08 07:49 Co-signature as Attending Physician, Alireza Saul MD I agree with the assessment and kdr plan of care. Disposition: 09/07/20 11:05 Hospitalization ordered by Efra Dye for Inpatient Admission. Preliminary diagnosis are Unspecified diastolic (congestive) heart failure, Urinary tract infection, site not specified, Altered mental status, unspecified. - Bed requested for Telemetry/MedSurg (Inpatient). - Status is Inpatient Admission. bp - Condition is Stable. - Problem is an acute exacerbation. - Symptoms have worsened. Signatures: Dispatcher [employer]Host EDTN Josie Platt Kevin, MD MD kdr Waters, Shelly, CURING MACHINE OPERATOR-C CURING MACHINE OPERATOR-Csnw Vincenzo Solis, RN RN bp Corrections: (The following items were deleted from the chart) 09/07 09:26 09:22 ENT: Nares patent. No nasal discharge, no septal abnormalities noted. Tympanic snw membranes are normal and external auditory canals are clear. Oropharynx with no redness, swelling, or masses, exudates, or evidence of obstruction, uvula midline. Mucous membranes moist. Neck: Trachea midline, no thyromegaly or masses palpated, and no cervical lymphadenopathy. Supple, full range of motion without nuchal rigidity, or vertebral point tenderness. No Meningismus. Chest/axilla: Normal chest wall appearance and motion. Nontender with no deformity. No lesions are appreciated. Cardiovascular: Regular rate and rhythm with a normal S1 and S2. No gallops, murmurs, or rubs. Normal PMI, no JVD. No pulse deficits. snw 09:57 09:24 CORONAVIRUS+MR.LAB.BRZ ordered. EDMS EDMS 12:10 11:05 Hospitalization Ordered by Efra Dye MD for Inpatient Admission. Preliminary bd diagnosis is Urinary tract infection, site not specified; Unspecified diastolic (congestive) heart failure; Altered mental status, unspecified. Bed requested for Telemetry/MedSurg (Inpatient). Status is Inpatient Admission. Condition is Stable. Problem is an acute exacerbation. Symptoms have worsened. snw 12:20 12:10 09/07/2020 11:05 Hospitalization Ordered by Efra Dye MD for Inpatient snw Admission. Preliminary diagnosis is Urinary tract infection, site not specified; Unspecified diastolic (congestive) heart failure; Altered mental status, unspecified. Bed requested for Telemetry/MedSurg (Inpatient). Status is Inpatient Admission. Condition is Stable. Problem is an acute exacerbation. Symptoms have worsened. bd 13:23 12:20 09/07/2020 11:05 Hospitalization Ordered by Efra Dye MD for Inpatient bp Admission. Preliminary diagnosis is Unspecified diastolic (congestive) heart failureUrinary tract infection, site not specified; Altered mental status, unspecified. Bed requested for Telemetry/MedSurg (Inpatient). Status is Inpatient Admission. Condition is Stable. Problem is an acute exacerbation. Symptoms have worsened. snw
[2020-09-07] MEDS ORDERED: GLUCAGON 1 MG/VIAL IM PRN (12:51)
[2020-09-07] MEDS: INSULIN -REGULAR HUMAN 50 UNIT/0.5 ML ML SQ SCH ×3 (12:51→20:06)
[2020-09-07] MEDS ORDERED: D50W 25 GM/50 ML SYRINGE IV PRN (12:51)
[2020-09-07 13:59] VITALS: BMI 25.1
[2020-09-07] MEDS: FUROSEMIDE 40 MG/4 ML VIAL IV SCH (17:06)
[2020-09-07] MEDS ORDERED: LOPERAMIDE HCL 2 MG CAPSULE PO SCH (18:00)
[2020-09-07] MEDS ORDERED: ONDANSETRON 4 MG (ODT) TAB PO SCH (18:00)
--- NOTE | 2020-09-07 18:30 | HP ---
Date of Admission: 09/07/2020 History Of Present Illness: An 79-year-old female, a [facility] resident, was noted to have increa sed swelling in her legs for the past few days and today she was noted by the nursing staff to be con fused with altered mental status, was brought to the emergency room, and the patient was found to hav e urinary tract infection and also had diastolic congestive heart failure, acute exacerbation on top of chronic with fluid overload, and the patient was admitted for that. Review of Systems: The patient is confused and we cannot obtain any further information at this point. Past Medical History: 1.As above, chronic diastolic congestive heart failure. 2.Hypertension. 3.Hyperlipidemia. 4.Type 2 diabetes mellitus. 5.Osteoarthritis, multiple sites. 6.History of myocardial infarction in the past. 7.Chronic atrial fibrillation. 8.Chronic gastroesophageal reflux disease. 9.Senile dementia. Social History: No smoking, alcohol, or drug abuse history. Family History: Noncontributing. Medications: Include Lasix 40 mg p.o. daily, Basaglar 10 units at bedtime subcutaneous, meclizine 25 mg p.o. q.8 hours p.r.n. for vertigo, spironolactone 50 mg p.o. daily, tramadol 50 mg p.o. q.8 hours p.r.n., amiodarone 200 mg p.o. at bedtime, Eliquis 5 mg p.o. b.i.d., fenofibrate 134 mg p.o. daily, Prozac 20 mg p.o. daily, Zoloft 4 mg p.o. q.8 hours p.r.n., primidone 50 mg p.o. daily, and Januvia 5 0 mg p.o. daily. Allergies: INCLUDE PENICILLIN, SULFA, CODEINE, AND MORPHINE. Physical Examination: Vital Signs: Blood pressure 128/67, pulse 67, temperature 97.4. Heart: Regular rate and rhythm. Chest: Mild bilateral crackles basilar. Abdomen: Soft, benign. Bowel sounds are active. Extremities: 2+ pitting pedal and tibial edema bilateral. Neurological: The patient is alert, good eye contact, but she could not tell where she is or tell th at I am her doctor or not. She moves all her extremities. Diagnostic Data: Chest x-ray showed congestive heart failure with prominence of pulmonary vasculatur e and cardiomegaly. Laboratory Data: PCR COVID RNA negative. CBC; white cell count 8.2, hemoglobin 14.1, hematocrit 42. 9, platelets 163. Neutrophils 83.2, a little bit high. Blood sugar checked at 92 and 78. Rest of t he labs pending. Urine showed 3+ blood, nitrite negative, esterase positive with white BCs more than 50. Serology negative. Assessment And Plan: Altered mental status secondary to urinary tract infection and also decompensat ed diastolic congestive heart failure. The patient is being admitted, put on IV Levaquin and put on IV Lasix. We will continue her home medicines for her chronic medical illnesses including also her E liquis prophylaxis before thrombosis. We will follow up her blood work and will act accordingly. Nae schneider for details. MFS/MODL Voice ID: [id number]
[2020-09-07] MEDS: AMIODARONE HCL 200 MG TAB PO SCH (20:33)
[2020-09-07] MEDS: APIXABAN 5 MG TABLET PO SCH (20:33)
[2020-09-08 06:23] LABS: Absolute Lymphocytes (CBC) 0.2 K/uL (0.7-4.9); Basophils % 0.6 % (0-1.3); Hematocrit 40.2 % (36.0-45.0); Lymphocytes % 2.5 % (15.3-44.8); MPV 9.5 fL (7.6-11.3); RBC Red Blood Cell Count 4.66 M/uL (3.86-4.86)
[2020-09-08 06:38] LABS: Potassium 4.6 mmol/L (3.5-5.1)
[2020-09-08] MEDS: INSULIN -REGULAR HUMAN 50 UNIT/0.5 ML ML SQ SCH ×4 (07:30→21:11)
[2020-09-08] MEDS: SITAGLIPTIN PHOS 100 MG TAB PO SCH (08:11)
[2020-09-08] MEDS: PRIMIDONE 50 MG TAB PO SCH (08:11)
[2020-09-08] MEDS: APIXABAN 5 MG TABLET PO SCH ×3 (08:11→21:11)
[2020-09-08] MEDS: FLUOXETINE 20 MG CAP PO SCH (08:11)
[2020-09-08] MEDS: FUROSEMIDE 40 MG/4 ML VIAL IV SCH ×2 (08:11→16:12)
[2020-09-08] MEDS ORDERED: HOME MED 1 EA UNK (Sitagliptin Phosphate [Januvia] 50 MG Tablet) PO SCH (09:00)
[2020-09-08] MEDS ORDERED: FLUOXETINE 10 MG CAP PO SCH (09:00)
[2020-09-08] MEDS: FENOFIBRATE MICRONIZED 134 MG PO SCH (09:00)
[2020-09-08] MEDS: Levofloxacin500mg IV 500 MG/100 ML BAG IV SCH (11:02)
--- NOTE | 2020-09-08 12:10 | PN ---
Subjective: The patient today looks better. She has good eye contact when she answers that she know s me, but she could not recall my name or where she is as name of hospital. No other complaints. Objective: Vital Signs: Blood pressure 122/60, pulse 67, temperature 97.3. Heart: Regular rate and rhythm. Chest: Clear to auscultation. Abdomen: Soft, benign. Neurologic: As above. Alert but not oriented. Extremities: No cyanosis. Decreased pitting edema. Diagnostic Studies: CBC noted. Chemistry: Sodium 138, BUN 42, creatinine 1.57, GFR 32. Assessment And Plan: 1.Mental status still not at baseline, but better than yesterday. 2.Continue IV Lasix for congestive failure and continue IV Levaquin for her urinary tract infection. Look orders for details. MFS/MODL Voice ID: [id number] Report ID: [id number]
[2020-09-08] MEDS: AMIODARONE HCL 200 MG TAB PO SCH (21:11)
[2020-09-09 06:00] LABS: Absolute Lymphocytes (CBC) 0.2 K/uL (0.7-4.9); Basophils % 0.3 % (0-1.3); Hematocrit 38.9 % (36.0-45.0); Lymphocytes % 2.9 % (15.3-44.8); MPV 9.1 fL (7.6-11.3); RBC Red Blood Cell Count 4.54 M/uL (3.86-4.86)
[2020-09-09 06:06] LABS: Potassium 4.4 mmol/L (3.5-5.1)
[2020-09-09 06:20] LABS: Protime INR 4.02
[2020-09-09] MEDS: INSULIN -REGULAR HUMAN 50 UNIT/0.5 ML ML SQ SCH ×4 (07:30→21:04)
[2020-09-09] MEDS: SITAGLIPTIN PHOS 100 MG TAB PO SCH (08:34)
[2020-09-09] MEDS: FUROSEMIDE 40 MG/4 ML VIAL IV SCH ×2 (08:35→16:50)
[2020-09-09] MEDS: FLUOXETINE 20 MG CAP PO SCH (08:35)
[2020-09-09] MEDS: PRIMIDONE 50 MG TAB PO SCH (08:36)
[2020-09-09] MEDS: APIXABAN 2.5 MG TABLET PO SCH ×2 (09:00→21:00)
[2020-09-09] MEDS: FENOFIBRATE MICRONIZED 134 MG PO SCH (09:00)
--- NOTE | 2020-09-09 13:15 | PN ---
Subjective: The patient is still confused. Has no complaints but she looks more alert and good eye contact. Objective: Vital Signs: Blood pressure 110/60, pulse 66, temperature 97.5. Heart: Regular rate and rhythm. Chest: Clear to auscultation. Abdomen: Soft, benign. Neurological: Alert but not oriented. Moves all extremities. She is grossly intact from that stand point. Laboratory Data: Her urine culture grew Klebsiella pneumoniae, sensitive to levofloxacin which she i s on. CBC noted. Sodium 130, BUN 39, creatinine 1.48. Blood sugar fingersticks noted. Assessment/plan: 1.Altered mental status, gradually improving, likely secondary to her urinary tract infection. We w ill continue also current antibiotic. 2.Congestive heart failure. The patient will continue her IV Lasix. 3.Hyponatremia, on IV Lasix. Expect to improve when changed to oral. Continue current treatment. MFS/MODL Voice ID: [id number] Report ID: [id number]
[2020-09-09] MEDS: Levofloxacin500mg IV 500 MG/100 ML BAG IV SCH (13:31)
--- NOTE | 2020-09-09 14:04 | EKG ---
Test Date: 2020-09-07 Test Time: 09:38:39 Multimedia Artist: TROY MEASUREMENT RESULTS: Intervals: Rate: 63 PA: QRSD: 116 QT: 446 QTc: 456 [place]: P: PA: QRS: 183 T: 78 INTERPRETIVE STATEMENTS: Suspect arm lead reversal, interpretation assumes no reversal Junctional rhythm Low voltage QRS Incomplete right bundle branch block Anterolateral infarct, age undetermined Abnormal ECG Compared to ECG 07/19/2020 08:34:22 Junctional rhythm now present Low QRS voltage now present Incomplete right bundle-branch block now present Atrial fibrillation no longer present Myocardial infarct finding still present Electronically Signed On 09-09-20 13:59:14 STRAP BUCKLER by Jackson Cuellar
[2020-09-09] MEDS: ACETAMINOPHEN 500 MG TAB PO PRN (17:35)
[2020-09-09] MEDS: AMIODARONE HCL 200 MG TAB PO SCH (21:00)
[2020-09-10 06:09] LABS: Protime INR 2.83
[2020-09-10] MEDS: INSULIN -REGULAR HUMAN 50 UNIT/0.5 ML ML SQ SCH ×4 (07:30→21:06)
[2020-09-10] MEDS: FENOFIBRATE MICRONIZED 134 MG PO SCH (09:00)
[2020-09-10] MEDS: SITAGLIPTIN PHOS 100 MG TAB PO SCH (09:58)
[2020-09-10] MEDS: APIXABAN 2.5 MG TABLET PO SCH ×2 (09:58→21:06)
[2020-09-10] MEDS: FLUOXETINE 20 MG CAP PO SCH (09:59)
[2020-09-10] MEDS: PRIMIDONE 50 MG TAB PO SCH (09:59)
[2020-09-10] MEDS: FUROSEMIDE 40 MG/4 ML VIAL IV SCH ×2 (09:59→16:13)
--- NOTE | 2020-09-10 12:11 | PN ---
Subjective: Patient is doing better. She could tell she was in the hospital. She knew I was her do ctor. She could not still recall my name and had difficulty doing that. No new complaint. Objective: Vital Signs: Blood pressure 110/60, temperature 97.3, pulse 70, room air pulse oximetry at 96. Heart: Regular rate. Chest: Clear to auscultation. Abdomen: Soft, benign. Neurological: Alert and as mentioned above orientation. Moves all her extremities. Extremities: No edema. No cyanosis. Laboratory Data: Blood sugar fingersticks noted. Assessment And Plan: 1.Altered mental status, improved. 2.Congestive heart failure, improved. 3.Also, hyponatremia, correcting. We will check labs in the morning. Expect discharge in 1-2 days. MFS/MODL Voice ID: [id number] Report ID: [id number]
[2020-09-10] MEDS: Levofloxacin500mg IV 500 MG/100 ML BAG IV SCH (12:49)
[2020-09-10] MEDS: AMIODARONE HCL 200 MG TAB PO SCH (21:06)
[2020-09-11 06:11] LABS: Potassium 4.1 mmol/L (3.5-5.1)
[2020-09-11] MEDS: INSULIN -REGULAR HUMAN 50 UNIT/0.5 ML ML SQ SCH ×4 (07:30→20:22)
[2020-09-11] MEDS: FENOFIBRATE MICRONIZED 134 MG PO SCH (09:00)
[2020-09-11] MEDS: FLUOXETINE 20 MG CAP PO SCH (10:01)
[2020-09-11] MEDS: FUROSEMIDE 40 MG/4 ML VIAL IV SCH ×2 (10:01→17:15)
[2020-09-11] MEDS: PRIMIDONE 50 MG TAB PO SCH (10:01)
[2020-09-11] MEDS: SITAGLIPTIN PHOS 100 MG TAB PO SCH (10:01)
[2020-09-11] MEDS: APIXABAN 2.5 MG TABLET PO SCH ×2 (10:01→20:18)
[2020-09-11] MEDS: Levofloxacin500mg IV 500 MG/100 ML BAG IV SCH (12:34)
[2020-09-11] MEDS: ACETAMINOPHEN 500 MG TAB PO PRN (12:37)
--- NOTE | 2020-09-11 17:34 | PN ---
Subjective: The patient is sitting comfortable in bed. She responds well to calling her name. She answers questions appropriately with good eye contact about she is feeling well and has no complaints ; however, she could not recall my name and that I am her doctor; however, she could recall the name of the hospital. The patient is moving all her extremities. Objective: Blood pressure 126/67, pulse 74, temperature 97.8, on 2 L nasal cannula O2 saturation 95% . Laboratory Data: Sodium 130, BUN 35, creatinine 1.38, GFR 37. Blood sugar fingersticks noted betwee n 250 to 170. Assessment And Plan: 1.Cystitis with Klebsiella pneumoniae, sensitive to Levaquin. We will continue that. 2.Congestive heart failure, diastolic, improving. 3.Hyponatremia. With IV diuretics, expect to improve. I think that the patient will be ready to be discharged back to the retirement in 1-2 days. Look orders for details. MFS/MODL Voice ID: [id number] Report ID: [id number]
[2020-09-11] MEDS: AMIODARONE HCL 200 MG TAB PO SCH (20:18)
[2020-09-12] MEDS: INSULIN -REGULAR HUMAN 50 UNIT/0.5 ML ML SQ SCH ×4 (07:30→21:00)
[2020-09-12] MEDS: FENOFIBRATE MICRONIZED 134 MG PO SCH (09:00)
[2020-09-12] MEDS: FUROSEMIDE 40 MG/4 ML VIAL IV SCH ×2 (09:15→16:34)
[2020-09-12] MEDS: SITAGLIPTIN PHOS 100 MG TAB PO SCH (09:15)
[2020-09-12] MEDS: PRIMIDONE 50 MG TAB PO SCH (09:15)
[2020-09-12] MEDS: APIXABAN 2.5 MG TABLET PO SCH ×2 (09:16→20:45)
[2020-09-12] MEDS: FLUOXETINE 20 MG CAP PO SCH (09:16)
--- NOTE | 2020-09-12 11:15 | PN ---
Subjective: The was alert and she follows commands, however, she still does not know that she is in a hospital, does not know my name. Objective: VITAL SIGNS: Blood pressure 120/64, pulse 86, temperature 97.1. The rest of her physical examination, no change from yesterday. Assessment And Plan: Diastolic dysfunction, exacerbation of congestive heart failure, is clinically better. Her pulse oximetry is more than 90% saturation. We will go ahead and continue current treat ment. The patient's confusion is slightly better. However, we will continue also antibiotics for th e cystitis, urinary tract infection. The patient's baseline has been gradually declining over the [address] 1-2 years. Patient on discharge will be sent to a half-way. Expect that in 1 to 2 days. SATURNINO/LC Voice ID: [id number] Report ID: [id number]
[2020-09-12] MEDS: Levofloxacin 250mg IV 250 MG/50 ML BAG IV SCH (12:25)
[2020-09-12] MEDS: AMIODARONE HCL 200 MG TAB PO SCH (20:45)
[2020-09-13] MEDS: INSULIN -REGULAR HUMAN 50 UNIT/0.5 ML ML SQ SCH ×4 (07:30→20:38)
[2020-09-13] MEDS: FENOFIBRATE MICRONIZED 134 MG PO SCH (09:00)
[2020-09-13] MEDS: SITAGLIPTIN PHOS 100 MG TAB PO SCH (09:17)
[2020-09-13] MEDS: PRIMIDONE 50 MG TAB PO SCH (09:18)
[2020-09-13] MEDS: FUROSEMIDE 40 MG/4 ML VIAL IV SCH ×2 (09:18→17:35)
[2020-09-13] MEDS: APIXABAN 2.5 MG TABLET PO SCH ×2 (09:18→20:37)
[2020-09-13] MEDS: FLUOXETINE 20 MG CAP PO SCH (09:18)
[2020-09-13] MEDS: Levofloxacin 250mg IV 250 MG/50 ML BAG IV SCH (11:40)
[2020-09-13] MEDS: AMIODARONE HCL 200 MG TAB PO SCH (20:37)
[2020-09-14] MEDS: ACETAMINOPHEN 500 MG TAB PO PRN (06:02)
[2020-09-14] MEDS: INSULIN -REGULAR HUMAN 50 UNIT/0.5 ML ML SQ SCH ×3 (07:30→16:18)
[2020-09-14] MEDS: FENOFIBRATE MICRONIZED 134 MG PO SCH (09:00)
[2020-09-14] MEDS: APIXABAN 2.5 MG TABLET PO SCH (09:49)
[2020-09-14] MEDS: SITAGLIPTIN PHOS 100 MG TAB PO SCH (09:49)
[2020-09-14] MEDS: FLUOXETINE 20 MG CAP PO SCH (09:50)
[2020-09-14] MEDS: FUROSEMIDE 40 MG/4 ML VIAL IV SCH ×2 (09:50→16:15)
[2020-09-14] MEDS: PRIMIDONE 50 MG TAB PO SCH (09:50)
[2020-09-14 10:05] VITALS: O2SAT 95
[2020-09-14 10:40] VITALS: TEMP 97.1
[2020-09-14] MEDS: Levofloxacin 250mg IV 250 MG/50 ML BAG IV SCH (12:28)
[2020-09-14 13:34] VITALS: BP 114/56
--- NOTE | 2020-10-15 18:28 | DS ---
Date of Discharge: 09/14/2020 Hospital Course: An 79-year-old female was admitted to the hospital because of increased shortness o f breath and altered mental status and confusion. She was found to have decompensated diastolic timohty estive heart failure along with urinary tract infection, cystitis and altered mental status, and she was admitted for that. The patient is a correction resident. We went ahead and put the patient on IV Lasix, on IV Levaquin, and continued her home medicines for chronic medical illnesses. The patie nt gradually improved. Her mental status was back to her baseline and her shortness of breath resolv ed. We monitored her electrolytes and acted accordingly. The patient was stable enough to be discha rged back to the correction. We discharged her to resume her home medications and on Levaquin p.o. 500 for the next 3 days. Look discharge orders for details. MFS/MODL Voice ID: [id number] Report ID: [id number]
== END 2020-09-14 17:08 | DRG 291 ==
LOC: ER 08:53 → ERHOLD 11:09 → 2ND 12:49
PROVIDERS: ADMIT Internal Medicine; ATTEND Internal Medicine
DX: I11.0 Hypertensive heart disease with heart failure (principal); G93.41 Metabolic encephalopathy; N39.0 Urinary tract infection, site not specified; G93.1 Anoxic brain damage, not elsewhere classified; I48.20 Chronic atrial fibrillation, unspecified; E87.1 Hypo-osmolality and hyponatremia; I50.33 Acute on chronic diastolic (congestive) heart failure; E78.5 Hyperlipidemia, unspecified; K21.9 Gastro-esophageal reflux disease without esophagitis; M19.90 Unspecified osteoarthritis, unspecified site; E11.9 Type 2 diabetes mellitus without complications; F03.90 Unspecified dementia, unspecified severity, without behavioral disturbance, psychotic disturbance, mood disturbance, and anxiety; I25.2 Old myocardial infarction; B96.1 Klebsiella pneumoniae [K. pneumoniae] as the cause of diseases classified elsewhere; Z88.0 Allergy status to penicillin; Z88.5 Allergy status to narcotic agent; Z88.1 Allergy status to other antibiotic agents; Z79.01 Long term (current) use of anticoagulants; Z79.899 Other long term (current) drug therapy; Z20.828 Contact with and (suspected) exposure to other viral communicable diseases
CPT/HCPCS: 36415; 51702; 71045; 80048; 80053; 80076; 81003; 81015; 82728; 82947; 83605; 83735; 83880; 84145; 84484; 85025; 85610; 87040; 87077; 87086; 87088; 87186; 93005; 96361; 96365; 96366; 96375; 99285; J1940; J7030; U0003

== ENCOUNTER 2020-09-17 19:54 | Inpatient (IN) | payer OTHER ==
--- OUTSIDE RECORDS SUMMARY | 2020-09-17 19:57 | XMS REPORT | Clinical Summary ---
:1940 Author Organization [facility] Address [address] [place] [address] Care Team Providers Name Role Phone Asked, [...] nausea, unspecified vomiting type 05/21/2020 Travel after 09/17/2019 Immunizations Name Administration Dates Next Due FLUCELVAX [...] VACCINE 04/22/2020 06/24/2019 Implants Implanted Type Area Financial Compliance Examiner Device Shelf Model / Identifier Expiration Serial [...] procedure are i n the results section. [place] INSERT Routine 05/22/2020 5:27 Paroxysmal atrial Result [...] Cardiogenic shock the result s (HCC) section. [place] INSERT NON-TUNNEL Routine 05/21/2020 11:30 Paroxysmal atria [...] are i n the results section. after 09/17/2019 Results Troponin (06/06/2020 1:00 PM CDT)Only the [...] Organization Address City/State/ZIP Code Phon e Number [facility] DEPARTMENT OF PATHOLOGY AND [address] [place], [place] [address] GENOMIC MEDICINE [address] [address] POC glucose (06/06/2020 11:36 AM CDT)Only the most recent of129 resultswithin the time period is included. Pathologist [facility] nature POC glucose 213 (H) 65 - 99 mg/dL [facility] Comment[facility] Psychiatry Adult Physician Name: Brennon Lynn Device ID: [id number] Chartable: [facility] Notified RN Specimen Blood Performing Organization Address City/[facility] Code Phon e Number [facility] DEPARTMENT OF PATHOLOGY AND [address] [place] [address] [address] Estimated GFR (06/05/2020 4:00 AM CDT)Only the most recent of23 resultswithin the time period is included. Pathologist [facility] Estimated GFR 27 (A) mL/min/1.73 [facility] Comment: m2 HOSPITAL Catergory Units Interpretation G1 [...] published in 2014. Specimen Performing Organization Address City/[facility] Phon e Number [facility] DEPARTMENT OF PATHOLOGY AND [address] [place] [address] [address] CBC with platelet and differential (06/05/2020 4:00 AM CDT)Only the most recent of14 resultswithin the time period is included. [facility] WBC 8.46 4.50 - 11.00 [facility] k/uL [facility] RBC 3.92 (L) 4.20 - 5.50 [facility] m/uL [facility] HGB 10.5 (L) 12.0 - 16.0 [facility] g/dL [facility] HCT 32.6 (L) 37.0 - 47.0 % [facility] MCV 83.2 82.0 - 100.0 [facility] MCH 26.8 (L) 27.0 - 34.0 pg [facility] MCHC 32.2 31.0 - 37.0 [facility] RDW - SD 50.7 37.0 - 55.0 fL [facility] MPV 11.5 8.8 - 13.2 fL [facility] Platelet count 299 150 - 400 k/uL [facility] Nucleated RBC 0.00 /100 WBC [facility] Neutrophils 76.2 (H) 39.0 - 69.0 % [facility] Lymphocytes 10.2 (L) 25.0 - 45.0 % [facility] Monocytes 8.4 0.0 - 10.0 % [facility] Eosinophils 3.8 0.0 - 5.0 % [facility] Basophils 0.8 0.0 - 1.0 % [facility] Immature granulocytes 0.6Comment: 0.0 - 1.0 % [facility] "Immature HOSPITAL granulocytes" (promyelocytes , myelocytes, metamyelocytes ) Specimen Blood Performing Organization Address City/[facility] Phon e Number [facility] DEPARTMENT OF PATHOLOGY AND [address] [place] [phone] Phosphorus level (06/05/2020 4:00 AM CDT)Only the most recent of16 results within the time period is included. Pathologist Sig nature Phosphorus 2.9 2.4 - 4.5 mg/dL [facility] L Specimen Blood Performing Organization Address City/[facility] Phon e Number [facility] DEPARTMENT OF PATHOLOGY AND [address] [place] [address] [phone] [address] Magnesium level (06/05/2020 4:00 AM CDT)Only the most recent of19 resultswithin the time period is included. Pathologist Sig nature Magnesium 1.9 1.6 - 2.4 mg/dL [facility] L Specimen Blood Performing Organization Address City/[facility] Phon e Number [facility] DEPARTMENT OF PATHOLOGY AND [address] [place] [address] [phone] [address] Comprehensive metabolic panel (06/05/2020 4:00 AM CDT)Only the most recent of3 resultswithin the time period is included. Sodium 140 135 - 148 [facility] mEq/L [facility] Potassium 4.2 3.5 - 5.0 [facility] mEq/L [facility] Chloride 93 (L) 98 - 112 [facility] mEq/L [facility] CO2 30 24 - 31 mEq/L [facility] Anion gap 17@ANIO (H) 7 - 15 mEq/L [facility] BUN 77 (H) 8 - 23 mg/dL [facility] Creatinine 1.74 (H) 0.50 - 0.90 [facility] mg/dL HOSPITAL Glucose 88 65 - 99 mg/dL [facility] Calcium 10.0 8.8 - 10.2 [facility] mg/dL HOSPITAL Protein 7.4 6.3 - 8.3 [facility] Comment: g/dL [facility] 4.6-7.0 g/dL 1 week 4.4-7.6 g/dL 7 months-1year 5.1-7.3 g/dL 1-2 years 5.6-7.5 g/dL >3 years 6.0-8.0 g/dL 18-150 6.3-8.3 g/dL Albumin 4.4 3.5 - 5.0 [facility] g/dL [facility] A/G ratio 1.5 0.7 - 3.8 [facility] Alkaline phosphatase 98 35 - 104 U/L [facility] AST 47 (H) 10 - 35 U/L [facility] ALT 62 (H) 5 - 50 U/L [facility] Total bilirubin 1.3 (H) 0.0 - 1.2 [facility] mg/dL [facility] Specimen Performing Organization Address City/State/ZIP Code Phon e Number [facility] DEPARTMENT OF PATHOLOGY AND [address] [place] [phone] GENOMIC MEDICINE [address] [address] Basic metabolic panel (06/04/2020 5:00 AM CDT)Only the most recent of19 results within the time period is included. Pathologist Sig nature Sodium 135 135 - 148 mEq/L [facility] Potassium 4.6 3.5 - 5.0 mEq/L [facility] Chloride 90 (L) 98 - 112 mEq/L [facility] CO2 26 24 - 31 mEq/L [facility] Anion gap 19@ANIO (H) 7 - 15 mEq/L [facility] BUN 84 (H) 8 - 23 mg/dL [facility] Creatinine 1.68 (H) 0.50 - 0.90 mg/dL [facility] Glucose 96 65 - 99 mg/dL [facility] Calcium 9.6 8.8 - 10.2 mg/dL [facility] Specimen Blood Performing Organization Address City/[facility] Phon e Number [facility] DEPARTMENT OF PATHOLOGY AND [address] [place] [address] [phone] [address] Digoxin level (06/03/2020 4:00 AM CDT)Only the most recent of5 resultswithin the time period is included. Digoxin 1.0 0.8 - 2.0 ng/mL [facility] Comment: HOSPITAL For valid Digoxin results, at least 6 hours should anthony pse between time of last dose and collection of blood. Otherwise, result may be false high. Therapeutic Range: 0.8 - 2.0 ng/mL Specimen Blood Performing Organization Address [facility] Phon e Number [facility] DEPARTMENT OF PATHOLOGY AND [address] [place], [place] [address] [address] [address] Hepatic function panel (06/03/2020 4:00 AM CDT)Only the most recent of12 resultswithin the time period is included. Albumin 3.9 3.5 - 5.0 [facility] g/dL [facility] Total bilirubin 1.3 (H) 0.0 - 1.2 [facility] mg/dL [facility] Bilirubin direct 0.7 (H) 0.0 - 0.3 [facility] mg/dL [facility] Alkaline phosphatase 81 35 - 104 U/L [facility] Protein 6.5 6.3 - 8.3 [facility] Comment: g/dL [facility] [place] 4.6-7.0 g/dL 1 week 4.4-7.6 g/dL 7 months-1year 5.1-7.3 g/dL 1-2 years 5.6-7.5 g/dL >3 years 6.0-8.0 g/dL 18-150 6.3-8.3 g/dL ALT 68 (H) 5 - 50 U/L [facility] AST 57 (H) 10 - 35 U/L [facility] Specimen Blood Performing Organization Address City/[facility] Phon e Number [facility] DEPARTMENT OF PATHOLOGY AND [address] [place], [place] [address] [address] [address] Partial thromboplastin time, activated (06/02/2020 4:40 AM CDT)Only the most recent of26 resultswithin the time period is included. PTT 30.7 23.0 - 36.0 [facility] Comment: [facility] PTT therapeutic range for unfractionated heparin is 61.0-112.0 seconds which corresponds to Anti-Xa 0.3-0.7 U/ml. Specimen Blood Performing Organization Address City/[facility] Phon e Number [facility] DEPARTMENT OF PATHOLOGY AND [address] [place] [address] [address] Urinalysis screen and microscopy, with reflex to culture (06/02/2020 2:00 AM CDT)Only the most recent of2 resultswithin the time period is included. Specimen site Random void [facility] Color, UA Straw [facility] Appearance, UA Clear [facility] Specific gravity, UA 1.008 1.001 - 1.035 [facility] pH, UA 5.0 5.0 - 8.5 [facility] Protein, UA 1+ (A) Negative [facility] Glucose, UA Negative Negative [facility] Ketones, UA Negative Negative [facility] Bilirubin, UA Negative Negative [facility] Blood, UA Negative Negative [facility] Nitrite, UA Negative Negative [facility] Urobilinogen, UA <2.0 <2.0 [facility] Leukocyte esterase, Negative Negative [facility] Epithelial cells, UA <1 /HPF [facility] Round epithelial <1 0 - 1 /HPF [facility] cells, HOSPITAL WBC, UA 1 0 - 4 /HPF [facility] RBC, UA None seen 0 - 5 /HPF [facility] Bacteria, UA None seen None seen [facility] Yeast, UA Few (A) [facility] Yeast with None seen [facility] pseudohyphae, [facility] Specimen Urine Performing Organization Address City/[facility] Phon e Number [facility] DEPARTMENT OF PATHOLOGY AND [address] [place] [address] [phone] [address] Urine culture (06/02/2020 2:00 AM CDT)Only the most recent of2 resultswithin the time period is included. Pathologist [facility] nature Urine culture SEE COMMENTComment: [facility] Bacteriuria screen HOSPITAL negative. Specimen Performing Organization Address [facility] Phon e Number [facility] DEPARTMENT OF PATHOLOGY AND [address] [place] [address] COVID-19 qualitative PCR (06/01/2020 7:48 PM CDT) Pathologist [facility] Interpretation Negative results do not prec lude 2019-nCoV infection and should not be used as the sole basis for treatment or other patient management decisions. Negative results must be combined with clinical observations, patient history, and epidemiological DANIELSON information. [facility] COVID-19 qualitative Not-Detected Not-Detecte [facility] PCR result d [facility] COVID19 qualitative See link below for [facility] PCR PDF Lab FAITH ReportComment: Case HOSPITAL Number: [id number] Specimen Nasopharyngeal swab Performing Organization Address [facility] Phon e Number [facility] DEPARTMENT OF PATHOLOGY AND [address] [place] [address] B natriuretic peptide (05/31/2020 12:45 AM CDT)Only the most recent of11 results within the time period is included. [facility] BNP >5000 (H) 0 - 100 pg/mL [facility] Comment: HOSPITAL Increased result of BNP most likely represents recent infusion of recombinant BNP. For monitoring, because of the brandin rt half-life of BNP (20 minutes), measurements taken 2 ho urs after cessation of treatment again reflects the level of end ogenous BNP. Specimen Blood Performing Organization Address [facility] Phon e Number [facility] DEPARTMENT OF PATHOLOGY AND [address] [place] [address] 0 [place] [address] Anti Xa, unfractionated (05/28/2020 3:20 PM CDT) [facility] Anti Xa, Footnote 0.30 - 0.70 [facility] unfractionated Comment: U/mL [facility] Therapeutic Range: 0.30 - 0.70 U/mL HOS PITAL Unable to perform testing, specimen is QNS_. Recolle ct requested for XAUFH (tests). [facility] [place]/A8 (nam e/location) notified by Adan_ (tech ID) at 17:00 05/28/2020 (date/time ). Credit issued. Specimen Blood Performing Organization Address [facility] Phon e Number [facility] DEPARTMENT OF PATHOLOGY AND [address] [place] [address] [phone] [address] ECG 12 lead (05/28/2020 4:02 AM CDT)Only [...] 25-MAY-2020 09:2 2,-No significant change was found-Electronically [facility] MUSE Signed By Ramin Hill MD ([id number]) on 05/28/2020 10:25:35 PM Specimen Narrative Performed At This result has an attachment that is no t available. Performing Organization Address [facility] Phon e Number [facility] MUSE [address] [place] [phone] Ionized calcium (05/28/2020 4:00 AM CDT)Only the most recent of13 resultswithin the time period is included. Pathologist Sig nature pH 7.56 [facility] Ionized calcium 1.02 (L) 1.11 - 1.32 [facility] mmol/L HOSPITAL Specimen Blood Performing Organization Address City/[facility]/ZIP [facility] Phon e Number [facility] DEPARTMENT OF PATHOLOGY AND [address] [place] [address] [phone] [address] Prothrombin time with INR (05/27/2020 12:18 AM CDT)Only the most recent of12 resultswithin the time period is included. Prothrombin time 20.3 (H) 11.5 - 14.5 [facility] INR 1.7 [facility] Comment: FAITH The International Normalized Ratio (INR) is a therapeu [facility] HOSPITAL monitoring tool for patients who are stable on oral anticoagulant therapy. An INR of 2.0-3.0 is suggested for deep vein thrombosis/pulmonary embolism. Specimen Blood Performing Organization Address City/State/ZIP Code Phon e Number [facility] DEPARTMENT OF PATHOLOGY AND [address] [place], [place] [address] GENOMIC MEDICINE [facility] [address] [place] [address] XR Chest 1 Vw Portable (05/26/2020 6:05 [...] without evidence of fracture or migratio n. [facility]-[id number] Dictated and approved by educational institution president/fellow: Yoon Turcios M.D. I, Connor Alarcon MD, [...] stable without evidence of fracture or migration. [facility]-[id number] Dictated and approved by radiology resid ent/fellow: Hernan Turcios M.D. I, Connor Alarcon MD, personally reviewed the images and resident's/fellow's findings and agree with the final report. Performing Organization Address City/State/ZIP Code Phon e Number [address] [address] Ionized calcium, arterial (05/26/2020 12:32 AM CDT) Pathologist Sig nature Ionized calcium, 1.10 (L) 1.11 - 1.32 [facility] arterial mmol/L HOSPITAL Specimen Blood Performing Organization Address [facility] Phon e Number [facility] DEPARTMENT OF PATHOLOGY AND [address] [place] [address] [address] Hemoglobin A1c (05/26/2020 12:32 AM CDT) Hemoglobin A1C 10.7 (H) 4.0 - 5.6 % [facility] Comment: HOSPITAL HbA1c cutoffs for diagnosing [...] 1 diabetes. Specimen Blood Performing Organization Address City/[facility] Phon e Number [facility] DEPARTMENT OF PATHOLOGY AND [address] [place] [address] [address] Arterial blood gas (05/26/2020 12:32 AM CDT)Only the most recent of8 results within the time period is included. Pathologist Sig nature pH, arterial 7.46 (H) 7.35 - 7.45 [facility] pCO2, arterial 41 35 - 45 mmHg [facility] pO2, arterial 82 80 - 90 mmHg [facility] Bicarbonate, 28.1 (H) 21.0 - 28.0 [facility] arterial mmol/L HOSPITAL Base excess, 4 (H) -2 - 2 mEq/L [facility] O2 saturation, 98 95 - 100 % [facility] arterial [facility] Specimen Blood Performing Organization Address City/[facility]/ZIP [facility] Phon e Number [facility] DEPARTMENT OF PATHOLOGY AND [address] [place] [address] [phone] [address] GGT (05/25/2020 12:00 AM CDT) Pathologist Sig nature GGT 76 (H) 0 - 39 U/L [facility] Specimen Blood Performing Organization Address City/[facility] Phon e Number [facility] DEPARTMENT OF PATHOLOGY AND [address] [place] [address] [phone] [address] Venous blood gas (05/25/2020 12:00 AM CDT)Only the most recent of4 resultswithin the time period is included. Pathologist Sig nature pH, venous 7.40 7.32 - 7.42 [facility] pCO2, venous 45 45 - 51 mmHg [facility] pO2, venous 39 25 - 40 mmHg [facility] Base excess, venous 3 (H) -2 - 2 meq/L [facility] O2 saturation, 71 (H) 40 - 70 % [facility] Bicarbonate, venous 27.4 21.0 - 28.0 [facility] mmol/L HOSPITAL Specimen Blood Performing Organization Address City/[facility] Phon e Number [facility] DEPARTMENT OF PATHOLOGY AND [address] [place] [address] [address] Vancomycin level, random (05/25/2020 12:00 AM CDT)Only the most recent of2 resultswithin the time period is included. Pathologist Sig nature Vancomycin, random 16.0 ug/mL [facility] ITAL Specimen Serum Performing Organization Address City/[facility]/ZIP [facility] Phon e Number [facility] DEPARTMENT OF PATHOLOGY AND [address] [place] [address] [address] Sodium level (05/24/2020 4:45 PM CDT)Only the most recent of3 resultswithin the time period is included. Pathologist Sig nature Sodium 131 (L) 135 - 148 mEq/L [facility] L Specimen Blood Performing Organization Address City/[facility] Phon e Number [facility] DEPARTMENT OF PATHOLOGY AND [address] [place] [address] [phone] [address] BUN level (05/24/2020 8:15 AM CDT)Only the most recent of2 resultswithin the time period is included. Pathologist Sig nature BUN 47 (H) 8 - 23 mg/dL [facility] Specimen Blood Performing Organization Address [facility] Phon e Number [facility] DEPARTMENT OF PATHOLOGY AND [address] [place] [address] [phone] [address] Potassium level (05/24/2020 8:15 AM CDT)Only the most recent of2 resultswithin the time period is included. Pathologist Sig nature Potassium 3.3 (L) 3.5 - 5.0 mEq/L [facility] Specimen Blood Performing Organization Address [facility] Phon e Number [facility] DEPARTMENT OF PATHOLOGY AND [address] [place] [address] [phone] [address] Creatinine level (05/24/2020 8:15 AM CDT)Only the most recent of2 resultswithin the time period is included. Pathologist Sig nature Creatinine 3.25 (H) 0.50 - 0.90 mg/dL [facility] Specimen Blood Performing Organization Address City/[facility] Phon e Number [facility] DEPARTMENT OF PATHOLOGY AND [address] [place] [address] [address] Fibrinogen (05/24/2020 12:08 AM CDT)Only the most recent of6 resultswithin the time period is included. Pathologist Sig nature Fibrinogen 265 200 - 450 mg/dL [facility] Specimen Blood Performing Organization Address City/[facility] Phon e Number [facility] DEPARTMENT OF PATHOLOGY AND [address] [place] [address] [phone] [address] Lactic acid level (05/24/2020 12:08 AM CDT)Only the most recent of12 results within the time period is included. Pathologist Sig nature Lactic acid 2.0 0.5 - 2.2 mmol/L [facility] AL Specimen Blood Performing Organization Address City/[facility]/ZIP Code Phon e Number [facility] DEPARTMENT OF PATHOLOGY AND [address] [place], [place] [address] GENOMIC MEDICINE [facility] [address] [place] [address] [place] Hepatic (05/23/2020 10:50 AM CDT) Specimen [...] vein. 4.A small pleural effusion is suspected. [facility]-[id number] Procedure Note Interface, Radiology Results Incoming - [...] vein. 4.A small pleural effusion is suspected. [facility]-[id number] Performing Organization Address City/[facility]/ZIP Code Phon e Number [facility] [address] [place] [address] [place] Renal (05/23/2020 10:28 AM CDT) Specimen Narrative Performed At EXAMINATION: US RENAL [facility] CLINICAL HISTORY: Renal failure chronic (kidney di sease), patient ANURIC COMPARISON: June 16, 2019 IMPRESSION: The right kidney measures 9.6 x 5.1 x 4. 7. The left kidney measures 10.1 x 5.7 x 5. 1. The kidneys are normal in size and echogenicity. There is no evidence of renal mass, calculi, or hydronephrosis. A catheter is present within a nondisten ded bladder. [facility]-[id number] Procedure Note Interface, Radiology Results Incoming - [...] is present within a nondisten ded bladder. [facility]-[id number] Performing Organization Address City/[facility] Phon e Number [address] [address] Hepatitis acute panel (05/22/2020 7:45 PM CDT) Pathologist Sig nature Hepatitis A IgM Non-reactive Non-reactive [facility] Hepatitis B core Non-reactive Non-reactive [facility] Hepatitis B surface Non-reactive Non-reactive [facility] Hepatitis C Ab Non-reactive Non-reactive [facility] Specimen Serum Narrative Performed At [facility] results called to and read back by [facility] DEPARTMEN T OF PATHOLOGY AND [facility] A/IC(name/location) MEDICINE at 05/22/2020 20:45 (date/time) by PC. Performing Organization Address City/[facility]/ZIP [facility] Phon e Number [facility] DEPARTMENT OF PATHOLOGY AND [address] [place] [address] [phone] [address] Blood culture, aerobic & anaerobic (05/22/2020 4:05 PM CDT)Only the most recent of2 resultswithin the time period is included. Blood culture No growth after 5 days of incubation. AUGUSTINE MOE isolate Comment: HOSPITAL Specimen Information Specimen Source: Blood Specimen Site: Wrist, Left Specimen Blood - Wrist, left Performing Organization Address City/[facility]/ZIP [facility] Phon e Number [facility] DEPARTMENT OF PATHOLOGY AND [address] [place] [address] [phone] [facility] [address] [place] [address] Arterial Line Insertion (05/22/2020 5:27 AM CDT) [...] 2:15 AM CDT) Specimen Narrative Performed At [facility] Echo cardiography Report [id number] [address] Pat.Name: NASIR AVILA.ID: [id number] .Date: 05/22/2020 Refer.MD: ELVIN RAJPUT MD Exam Time: 12:55:00 AM Study Type:Ro utine Echo Height: 68in Weight: 161lb BSA: 1.87 m2 Ag e: 1940,79Y Sex: FEMALE BP: 150/87 HR: 53 bpm Sonogr phr: Jailyn Torres RDCS, RVT Pat. Stat.:Inpatient Room: [place] [address] Study Status:Final Echo Event ID:[id number] Order ID: [id number] Reason for Study:Acute hemo instability with hypotension [...] of 15-20 mmHg. MEASUREMENTS: 2D Parasternal Long [place] Ao An 1.6 cm LVPWd 1.5 cm [...] - 2019 10:29 AM CDT Echocardiography Report [address] [address] Pat.Name: NASIR AVILA D: [id number] .Date: 05/22/2020 Refer .MD: ELVIN RAJPUT MD Exam Time: 12:55:00 AM Study Type:Routine Echo Height: 68in Weigh t: 161lb BSA: 1.87 m2 Age: 1 1940,79Y Sex: FEMALE BP: 150/87 HR: 53 bpm Sonog rphr: Jailyn Torres RDCS, RVT Pat. Stat.:Inpatient Room: [place] [address] Study Status:Final Echo Event ID:[id number] Order ID: [id number] Reason for Study:Acute hemo instability with hypotension [...] of 15-20 mmHg. MEASUREMENTS: 2D Parasternal Long [place] Ao An 1.6 cm LVPW d 1.5 [...] City/State/ZIP Code Phon e Number [facility] [address] [place] [address] Central Line Insertion (05/21/2020 11:30 PM CDT) Narrative Performed At Pratima Salomon NP 05/22/2020 5:23 A M Central Line Insertion Performed by: Pratima Salomon NP Authorized by: Pratima Salomon NP Consent: Consent obtained: Emergent situatio n [place] protocol: Immediately prior to procedure, a baljit [...] PM CDT) Platelet slide review Decreased (A) [facility] Anisocytosis Moderate [facility] Polychromasia Moderate [facility] Ovalocytes Moderate [facility] Ramses cells Many (A) [facility] Acanthocytes Occasional [facility] Enlarged platelets Moderate (A) [facility] Specimen Performing Organization Address City/[facility] Phon e Number [facility] DEPARTMENT OF PATHOLOGY AND [address] [place], [place] [phone] [address] Prepare fresh frozen plasma, 3 Units (05/21/2020 9:50 PM CDT) Product name Thawed Plasma [facility] Unit number [id number] [facility] Product code [id number] [facility] Dispense status Returned to BB not [facility] Blood expiration date [facility] Blood type code 7300 [facility] Blood type B POSITIVE [facility] Compatibility Not required [facility] Product name Thawed Plasma [facility] Unit number [id number] [facility] Product code [id number] [facility] Dispense status Returned to BB not [facility] Blood expiration date [facility] Blood type code 7300 [facility] Blood type B POSITIVE [facility] Compatibility Not required [facility] Product name Thawed Plasma [facility] Unit number [id number] [facility] Product code [id number] [facility] Dispense status Transfused [facility] Blood expiration date [facility] Blood type code 7300 [facility] Blood type B POSITIVE [facility] Compatibility Not required [facility] Specimen Blood Performing Organization Address City/[facility] Phon e Number [facility] DEPARTMENT OF PATHOLOGY AND [address] [place], [place] [phone] [address] Prepare RBC, 4 Units (05/21/2020 9:50 PM CDT) Product name Red Blood Cells DRYDEN -1, Leukored [facility] Unit number [id number] [facility] Product code [id number] [facility] Dispense status Returned to BB not [facility] Blood expiration date [facility] Blood type code 7300 [facility] Blood type B POSITIVE [facility] Compatibility Compatible [facility] Specimen Blood Performing Organization Address City/[facility] Phon e Number [facility] DEPARTMENT OF PATHOLOGY AND [address] [place] [address] [phone] [address] Type and screen (05/21/2020 9:50 PM CDT) Pathologist Sig nature ABO grouping B [facility] Rh type POS [facility] Antibody screen (gel) NEG [facility] Specimen Performing Organization Address City/[facility] Phon e Number [facility] DEPARTMENT OF PATHOLOGY AND [address] [place] [address] [phone] [address] Thyroid stimulating hormone (05/21/2020 6:35 AM CDT) Pathologist Sig nature TSH 5.93 (H) 0.27 - 4.20 uIU/mL [facility] Specimen Blood Performing Organization Address City/[facility] Phon e Number [facility] DEPARTMENT OF PATHOLOGY AND [address] [place] [address] [phone] [address] T4, free (05/21/2020 6:35 AM CDT) Pathologist Sig nature T4, free 1.5 0.9 - 1.7 ng/dL [facility] Specimen Blood Performing Organization Address [facility] Phon e Number [facility] DEPARTMENT OF PATHOLOGY AND [address] [place] [address] [phone] [address] Lipid panel (05/21/2020 6:35 AM CDT) Cholesterol 108 <200 mg/dL [facility] Triglycerides 67 <150 mg/dL [facility] HDL cholesterol 41 >40 mg/dL [facility] LDL cholesterol 58Comment: Result <100 mg/dL DRYDEN obtained by direct FAITH LDL [facility] Lipid panel [facility] interpretation Comment: FAITH Total Cholesterol [...] Organization Address City/State/ZIP Code Phon e Number [facility] DEPARTMENT OF PATHOLOGY AND [address] [place] [phone] [facility] [address] [address] after 09/17/2019 Insurance Payer Benefit Plan / Subscriber ID Effective Dates Phone Addre ss Type Group [employer] MEDICARE HU[employer] MEDICARE [id number] 2017-Present PPO PPO/PFFS/ERS [employer] Advance Directives For more information, please contact: [phone] Type Date Recorded 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
--- OUTSIDE RECORDS SUMMARY | 2020-09-17 19:58 | XMS REPORT | Clinical Summary ---
:1940 Author Organization [facility] Address [address] [place] [address] Care Team Providers Name Role Phone Unavailable Primary Care Provider Unavailable Allergies Not on File Medications Not on file Active Problems Not on file Encounters Date Type Specialty Care Team Description 03/30/2020 Lab Requisition Lab after 09/17/2019 Social History Tobacco Use Types Packs/Day Years Used Date Never Assessed Sex Assigned at Date Recorded Not on file Last Filed Vital Signs Not on file Plan of Treatment Not on file Procedures Procedure Name Priority Date/Time Associated Diagnosis Comme nts SARS-COV2/RT-PCR Routine 03/29/2020 9:15 PM Resu lts for this ([facility]) CDT procedure are in the results section. after 09/17/2019 Results SARS-CoV2/RT-PCR ([facility]) (03/29/2020 9:15 PM CDT) SARS-COV2/RT-PCR Negative Not Detected, [facility] Negative [facility] SARS-COV-2 [facility] PERFORMING LAB [facility] Specimen Other - Nasopharyngeal wall structure (b cody structure) Narrative Performed At Negative result for this test determines that [facility] SARS-CoV-2 RNA was not present [...] the Act. Fact Sheet for Healthcare Providers: https://www.[employer]/sites/default/files/pro duct/documents/Fact_Sheet_HC_Providers_Lyra_SA RS-CoV-2.pdf Fact Sheet for Healthcare Patients: https://www.[employer]/sites/default/files/pro duct/documents/Fact_Sheet_Patients_Lyra_SARS-C oV-2.pdf Performing Laboratory: [address] [address] Performing Organization Address City/State/Zipcode Phone Number [address] [address] CENTER after 09/17/2019
--- OUTSIDE RECORDS SUMMARY | 2020-09-17 20:00 | XMS REPORT | Continuity of Care Document ---
:1940 Author Organization [facility] t Address [address] [place] [address] Care Team Providers Name Role Phone Asked, Pcp Primary Care Physician Unavailable Doctor Unassigned, Name Attending Clinician Unavailable Bettina CAAL Attending Clinician Atiya MARQUES, ORadha Attending Clinician ATIYA Admitting Clinician Unavailable Payers Payer Name Policy Type Policy Effective Date Expiration Date Sour ce Number HUMANA [id number] 2017 [place] MEDICAREHUMANA 00:00:00 [facility] MEDICARE PPO/PFFS/ERS [id number] 2017 -PresentPPO Problems Condition Condition Condition Status Onset Resolution Last Treating Co mments Source Name Details Category Date Date Treatment Clinician Date Nausea and Nausea and Disease Active H d[place] vomiting vomiting 830 Method i 00:00: st 00 Cardiogeni Cardiogeni Disease Active [place] shock c shock 06-21 Methodi 00:00: st 00 Atrial Atrial Disease Active [place] fibrillati fibrillati 06-15 Me thodi on on 00:00: st Essential Essential Disease Active [place] hypertensi hypertensi 06-15 Me thodi on on 00:00: st 00 Type 2 Type 2 Disease Active [place] diabetes diabetes 06-15 Method i mellitus mellitus 00:00: st 00 Allergies, Adverse Reactions, Alerts Allergy Allergy Status Severity Reaction(s) Onset Inactive Treating Comm ents Source Name Type Date Date Clinician Codeine Propensi Active Hallucinatio [place] to ns Methodi adverse st reaction s to drug Morphine Propensi Active Hallucinatio Pt had it [place] ty to ns when son Methodi adverse was born. st reaction s to drug Penicill Propensi Active Rash Long time [place] in [place] ty to ago, pt Methodi adverse can't st reaction remember. s to drug Family History Family Member Diagnosis Comments Start Date Stop Date Source Natural father Heart disease [place] [facility] Natural mother Cancer [facility] thodist Social History Social Habit Start Date Stop Date Quantity Comments Source History [facility] Meth odist Alcohol Std Drinks History [facility] Meth odist Alcohol Binge Sex Assigned At [facility] ethodist Tobacco use and 2020-05-21 2020-05-21 Never used [facility] ethodist exposure 00:00:00 00:00:00 Alcohol intake 2020-05-21 2020-05-21 Lifetime [facility] thodist 00:00:00 00:00:00 non-drinker (finding) History [facility] 2019-06-15 2019-06-15 1 [place] Meth odist Alcohol Frequency 00:00:00 00:00:00 Smoking Status Start Date Stop Date Source Never smoker [place] Methodis t Medications Ordered Filled Start Stop [...] st 58 :00 diphenhydra 2019- 2020- No [id number] Apply [place] mine-zinc 06-06 [id number] topically Methodi acetate 00:00: 23:59 3D 3 [...] 30 days. insulin 2020-0 2020- No 0U [id number] Inject [place] lispro 9-11 10-11 [id number] 0-12 Units Methodi (ADMELOG) 00:00: 23:59 3D [...] [place] di, mono-K 06-0211 tablets by Tx thodi phos mono 00:00: 23:59 mouth once s t (PHOSPHA 00 :00 for 1 250 dose. NEUTRAL) 250 mg tablet per tablet Immunizations Ordered Immunization Filled Immunization Date Status Commen ts Source Name Name FLUCELVAX QUAD 2019-06-24 [facility] 00:00:00 [facility] Vital Signs Vital Name Observation Time Observation Value Comments Source Systolic blood 2020-06-06 15:39:46 151 mm[Hg] [place] [facility] pressure Diastolic blood 2020-06-06 15:39:46 59 mm[Hg] Erik on [facility] pressure Heart rate 2020-06-06 15:39:46 61 /min Tommie Goldberg Body temperature 2020-06-06 15:39:46 36.44 Viktoriya [place] [facility] Respiratory rate 2020-06-06 15:39:46 18 /min [place] [facility] Oxygen saturation in 2020-06-06 15:39:46 99 /min [...] COMPLETE BLD COUNT 2020-06-05 04:00:00 Elvin Rajput [facility] W/AUTO DIFF ESTIMATED GFR 2020-06-05 04:00:00 Kory Oroscoodist [place] COMPREHENSIVE METABOLIC 2020-06-05 04:00:00 Kory Orosco [facility] PANEL [place] POC GLUCOSE 2020-06-05 03:29:00 Elvin Rajput POC GLUCOSE 2020-06-05 03:18:00 Elvin Rajput POC GLUCOSE 2020-06-04 21:11:00 Elvin Rajput [facility] POC GLUCOSE 2020-06-04 18:12:00 Elvin Rajput [facility] POC GLUCOSE 2020-06-04 16:42:00 Elvin Rajput [facility] POC GLUCOSE 2020-06-04 12:08:00 Elvin Rajput POC GLUCOSE 2020-06-04 07:40:00 Elvin Rajput BASIC METABOLIC PANEL 2020-06-04 05:00:00 Kory Orosco [facility] [place] MAGNESIUM LEVEL 2020-06-04 05:00:00 Kory Orosco ethodist [place] PHOSPHORUS LEVEL 2020-06-04 05:00:00 Kory Orosco [facility] [place] ESTIMATED GFR 2020-06-04 05:00:00 Kory Orosco ethodist [place] POC GLUCOSE 2020-06-03 20:20:00 Elvin Rajput [facility] POC GLUCOSE 2020-06-03 17:03:00 Elvin Rajput [facility] POC GLUCOSE 2020-06-03 12:01:00 Elvin Rajput [facility] POC GLUCOSE 2020-06-03 07:51:00 Elvin Rajput HEPATIC FUNCTION PANEL 2020-06-03 04:00:00 iNcole Weiss [facility] DIGOXIN LEVEL 2020-06-03 04:00:00 Keo Delgado odist BASIC METABOLIC PANEL 2020-06-03 04:00:00 Kwesi Kory sharp [facility] [place] MAGNESIUM LEVEL 2020-06-03 04:00:00 Kory Orosco ethodist [place] PHOSPHORUS LEVEL 2020-06-03 04:00:00 Kory Orosco [place] ESTIMATED GFR 2020-06-03 04:00:00 Nicole Weiss hodjohanna POC GLUCOSE 2020-06-02 21:30:00 Elvin Rajput POC GLUCOSE 2020-06-02 17:15:00 Elvin Rajput POC GLUCOSE 2020-06-02 11:58:00 Elvin Rajput POC GLUCOSE 2020-06-02 08:27:00 Elvin Rajput POC GLUCOSE 2020-06-02 06:49:00 Elvin Rajput PARTIAL THROMBOPLASTIN 2020-06-02 04:40:00 Keo Delgado on [facility] TIME (PTT) BASIC METABOLIC PANEL 2020-06-02 04:00:00 Kory Orosco [facility] [place] MAGNESIUM LEVEL 2020-06-02 04:00:00 Kory Orosco ethodist [place] PHOSPHORUS LEVEL 2020-06-02 04:00:00 Kory Orosco [place] HEPATIC FUNCTION PANEL 2020-06-02 04:00:00 Nicole Weiss [facility] ESTIMATED GFR 2020-06-02 04:00:00 Kory Orosco ethodist [place] URINE CULTURE 2020-06-02 02:00:00 Elvin Rajput URINALYSIS SCREEN AND 2020-06-02 02:00:00 Elvin Rajput MICROSCOPY, WITH REFLEX TO CULTURE POC GLUCOSE 2020-06-01 21:00:00 Elvin Rajput COVID-19 QUALITATIVE PCR 2020-06-01 19:48:00 Elvin Rajput POC GLUCOSE 2020-06-01 17:38:00 Elvin Rajput [facility] POC GLUCOSE 2020-06-01 12:34:00 Elvin Rajput [facility] POC GLUCOSE 2020-06-01 09:00:00 Elvin Rajput [facility] POC GLUCOSE 2020-06-01 05:12:00 Elvin Rajput BASIC METABOLIC PANEL 2020-06-01 05:00:00 Kory Orosco [facility] [place] MAGNESIUM LEVEL 2020-06-01 05:00:00 Kory Orosco M ethodist [place] PHOSPHORUS LEVEL 2020-06-01 05:00:00 Kory Oroscoist [place] DIGOXIN LEVEL 2020-06-01 05:00:00 Keo Delgado Meth odist HEPATIC FUNCTION PANEL 2020-06-01 05:00:00 Nicole Weiss [facility] ESTIMATED GFR 2020-06-01 05:00:00 Nicole Weiss hodist POC GLUCOSE 2020-05-31 23:23:00 Elvin Rajput [facility] PARTIAL THROMBOPLASTIN 2020-05-31 23:20:00 Keo Delgado on [facility] TIME (PTT) POC GLUCOSE 2020-05-31 21:03:00 Elvin Rajput [facility] POC GLUCOSE 2020-05-31 17:35:00 Elvin Rajput [facility] PARTIAL THROMBOPLASTIN 2020-05-31 16:15:00 Keo Delgado on [facility]ical TIME (PTT) POC GLUCOSE 2020-05-31 12:17:00 Elvin Rajput [facility] PARTIAL THROMBOPLASTIN 2020-05-31 08:35:00 Elvin Rajput [facility] TIME (PTT) POC GLUCOSE 2020-05-31 08:14:00 Elvin Rajput DIGOXIN LEVEL 2020-05-31 00:45:00 Keo Delgado Meth odist PARTIAL THROMBOPLASTIN 2020-05-31 00:45:00 Elvin Rajput [facility] TIME (PTT) B NATRIURETIC PEPTIDE 2020-05-31 00:45:00 Keo Delgado [facility] BASIC METABOLIC PANEL 2020-05-31 00:45:00 Jarad OroscodonaldGeo [place] [facility] [place] MAGNESIUM LEVEL 2020-05-31 00:45:00 Kwesi Kory Reilly Trang ethodist [place] PHOSPHORUS LEVEL 2020-05-31 00:45:00 Kwesi Kory Reilly [facility] [place] ESTIMATED GFR 2020-05-31 00:45:00 Kwesi Kory Tommie Costello ethodist [place] POC GLUCOSE 2020-05-30 21:29:00 Elvin Rajput [facility] POC GLUCOSE 2020-05-30 17:27:00 Elvin Rajput PARTIAL THROMBOPLASTIN 2020-05-30 14:05:00 Keo Delgado on [facility] TIME (PTT) POC GLUCOSE 2020-05-30 11:32:00 Elvin Rajputist POC GLUCOSE 2020-05-30 08:03:00 Elvin Rajput HEPATIC FUNCTION PANEL 2020-05-30 06:09:00 Pratima Salomon on [facility] HC COMPLETE BLD COUNT 2020-05-30 06:09:00 Elvin Rajput [facility] W/AUTO DIFF BASIC METABOLIC PANEL 2020-05-30 06:09:00 Vivek Quinteros [facility] PARTIAL THROMBOPLASTIN 2020-05-30 06:09:00 Pratima Salomon on [facility] TIME (PTT) ESTIMATED GFR 2020-05-30 06:09:00 Vivek Quinteros Me thodist MAGNESIUM LEVEL 2020-05-30 06:09:00 Pratima Salomon Meth odist B NATRIURETIC PEPTIDE 2020-05-30 06:00:00 Elvin Rajput [facility] POC GLUCOSE 2020-05-29 21:21:00 Elvin Rajput PARTIAL THROMBOPLASTIN 2020-05-29 21:00:00 Elvin Rajput [facility] TIME (PTT) POC GLUCOSE 2020-05-29 18:20:00 Elvin Rajput PARTIAL THROMBOPLASTIN 2020-05-29 12:20:00 Pratima Salomon on [facility] TIME (PTT) POC GLUCOSE 2020-05-29 12:17:00 Elvin Rajput POC GLUCOSE 2020-05-29 08:23:00 Elvin Rajput HEPATIC FUNCTION PANEL 2020-05-29 05:50:00 Pratima Salomon on Evangelical B NATRIURETIC PEPTIDE 2020-05-29 05:50:00 Pratima Salomon [facility] MAGNESIUM LEVEL 2020-05-29 05:50:00 Joann Rivers [facility] PARTIAL THROMBOPLASTIN 2020-05-29 05:50:00 Pratima Salomon [facility] TIME (PTT) ESTIMATED GFR 2020-05-29 05:50:00 Pratima Salomon Meth odist BASIC METABOLIC PANEL 2020-05-29 05:50:00 Pratima Salomon [facility] POC GLUCOSE 2020-05-28 21:03:00 Elvin Rajput PARTIAL THROMBOPLASTIN 2020-05-28 19:54:00 Elvin Rajput [facility] TIME (PTT) POC GLUCOSE 2020-05-28 17:31:00 Elvin Rajput ANTI XA, UNFRACTIONATED 2020-05-28 15:20:00 Elvin Rajput POC GLUCOSE 2020-05-28 12:20:00 Elvin Rajput POC GLUCOSE 2020-05-28 07:47:00 Elvin Rajput POC GLUCOSE 2020-05-28 05:30:00 Elvin Rajput ECG 12-LEAD 2020-05-28 04:02:27 Elvin Rajput HEPATIC FUNCTION PANEL 2020-05-28 04:00:00 Pratima Salomon [facility] BASIC METABOLIC PANEL 2020-05-28 04:00:00 Veronica Schuler [facility] IONIZED CALCIUM 2020-05-28 04:00:00 Veronica Schuler Meth odist MAGNESIUM LEVEL 2020-05-28 04:00:00 Veronica Schuler Meth odist PHOSPHORUS LEVEL 2020-05-28 04:00:00 Veronica Schuler Met hodist ESTIMATED GFR 2020-05-28 04:00:00 Aminah Og Met hodist DIGOXIN LEVEL 2020-05-28 04:00:00 Aminah Og Met hodist B NATRIURETIC PEPTIDE 2020-05-28 03:45:00 Pratima Salomon [facility] HC COMPLETE BLD COUNT 2020-05-28 03:45:00 Veronica Schuler [facility] W/AUTO DIFF PARTIAL THROMBOPLASTIN 2020-05-28 03:45:00 Elvin Rajput [facility] TIME (PTT) POC GLUCOSE 2020-05-27 23:24:00 Elvin Rajput PARTIAL THROMBOPLASTIN 2020-05-27 19:55:00 OrganekAminah [facility] TIME (PTT) POC GLUCOSE 2020-05-27 19:44:00 Elvin Rajput [facility] POC GLUCOSE 2020-05-27 15:24:00 Elvin Rajput POC GLUCOSE 2020-05-27 11:12:00 Elvin Rajput [facility] POC GLUCOSE 2020-05-27 11:11:00 Elvin Rajput [facility] POC GLUCOSE 2020-05-27 07:29:00 Elvin Rajput [facility] POC GLUCOSE 2020-05-27 03:21:00 Elvin Rajput HEPATIC FUNCTION PANEL 2020-05-27 01:06:00 Nicole Weiss [facility] BASIC METABOLIC PANEL 2020-05-27 01:06:00 Zainab Saini [facility] IONIZED CALCIUM 2020-05-27 01:06:00 Zainab Saini Meth odist MAGNESIUM LEVEL 2020-05-27 01:06:00 Zainab Saini Meth odist PHOSPHORUS LEVEL 2020-05-27 01:06:00 Zainab Saini Met hodist DIGOXIN LEVEL 2020-05-27 01:06:00 OrganekAminah Met hodist ESTIMATED GFR 2020-05-27 01:06:00 Nicole Weiss Met hodist PROTHROMBIN TIME WITH INR 2020-05-27 00:18:00 OrganAminah shepherd PARTIAL THROMBOPLASTIN 2020-05-27 00:18:00 Aminah Og [facility] TIME (PTT) B NATRIURETIC PEPTIDE 2020-05-27 00:18:00 OrganAminah shepherd on [facility] HC COMPLETE BLD COUNT 2020-05-27 00:18:00 Zainab Saini [facility] W/AUTO DIFF POC GLUCOSE 2020-05-26 23:18:00 Elvin [...] Zainab Saini POC GLUCOSE 2020-05-25 22:58:00 Elvin Rajupt POC GLUCOSE 2020-05-25 21:08:00 Elvin Rajput POC GLUCOSE 2020-05-25 19:37:00 Elvin Rajput POC GLUCOSE 2020-05-25 18:35:00 Elvin Rajput POC GLUCOSE 2020-05-25 17:32:00 Elvin Rajput IONIZED CALCIUM 2020-05-25 16:30:00 ClaraSanaveronicastef Goldberg Nnebuogo POC GLUCOSE 2020-05-25 16:21:00 Elvin Rajput [facility] POC GLUCOSE 2020-05-25 13:52:00 Elvin Rajput [facility] POC GLUCOSE 2020-05-25 12:17:00 Elvin Rajput [facility] POC GLUCOSE 2020-05-25 11:10:00 Elvin Rajput [facility] POC GLUCOSE 2020-05-25 09:48:00 Elvin Rajput ECG 12-LEAD 2020-05-25 09:22:31 Elvin Rajput POC GLUCOSE 2020-05-25 08:02:00 Elvin Rajputist POC GLUCOSE 2020-05-25 07:03:00 Elvin Rajput XR CHEST 1 VW PORTABLE 2020-05-25 06:42:46 Zainab Saini [facility] POC GLUCOSE 2020-05-25 06:14:00 Elvin Rajput [facility] POC GLUCOSE 2020-05-25 05:10:00 Elvin Rajput [facility] POC GLUCOSE 2020-05-25 03:45:00 Elvin Rajput [facility] POC GLUCOSE 2020-05-25 02:07:00 Elvin Rajput [facility] POC GLUCOSE 2020-05-25 00:03:00 Elvin Rajput B [...] shepherd PARTIAL THROMBOPLASTIN 2020-05-25 00:00:00 Aminah Og [facility] TIME (PTT) VENOUS BLOOD GAS 2020-05-25 00:00:00 Aminah Og Me thodist ESTIMATED GFR 2020-05-25 00:00:00 OrganAminah shepherd Met hodist POC GLUCOSE 2020-05-24 22:51:00 Elvin Rajput [facility] POC GLUCOSE 2020-05-24 22:04:00 Elvin Rajput [facility] POC GLUCOSE 2020-05-24 21:21:00 Elvin Rajput [facility] POC GLUCOSE 2020-05-24 19:54:00 Elvin Rajput [facility] POC GLUCOSE 2020-05-24 18:03:00 Elvin Rajput [facility] POC GLUCOSE 2020-05-24 17:06:00 Elvin Rajputist SODIUM LEVEL 2020-05-24 16:45:00 OrganAminah shepherd Met hodist POC GLUCOSE 2020-05-24 16:04:00 Elvin Rajput [facility] POC GLUCOSE 2020-05-24 14:49:00 Elvin Rajput [facility] POC GLUCOSE 2020-05-24 13:54:00 Elvin Rajput [facility] POC GLUCOSE 2020-05-24 13:03:00 Elvin Rajputist PROTHROMBIN TIME WITH INR 2020-05-24 12:30:00 OrganAminah shepherdist PARTIAL THROMBOPLASTIN 2020-05-24 12:30:00 Aminah Og [facility] TIME (PTT) POC GLUCOSE 2020-05-24 11:56:00 Elvin Rajput [facility] POC GLUCOSE 2020-05-24 10:59:00 Elvin Rajput XR CHEST 1 VW PORTABLE 2020-05-24 10:10:00 Zainab Saini on Evangelical POC GLUCOSE 2020-05-24 09:54:00 Elvin Rajput [facility] POC GLUCOSE 2020-05-24 08:54:00 Elvin Rajput [facility] BUN LEVEL 2020-05-24 08:15:00 Vivek Quinteros Tx thodist CREATININE LEVEL 2020-05-24 08:15:00 Aldair Jose CKatharina Reilly ethodist IONIZED CALCIUM 2020-05-24 08:15:00 Vivek Quinteros MRadha Reilly Tx thodist MAGNESIUM LEVEL 2020-05-24 08:15:00 Vivek Quinteros MRadha Reilly Tx thodist PHOSPHORUS LEVEL 2020-05-24 08:15:00 Vivek Quinteros MRadha Reilly ethodist POTASSIUM LEVEL 2020-05-24 08:15:00 Vivek Quinteros MRadha Reilly Tx thodist PARTIAL THROMBOPLASTIN 2020-05-24 08:15:00 Vivek Quinteros [facility] TIME (PTT) SODIUM LEVEL 2020-05-24 08:15:00 Vivek Quinteros Tx thodist ESTIMATED GFR 2020-05-24 08:15:00 Vivek Quinteros Tx thodist POC GLUCOSE 2020-05-24 08:10:00 Elvin Rajputist POC GLUCOSE 2020-05-24 07:03:00 Elvin Rajputist POC GLUCOSE 2020-05-24 05:54:00 Elvin Rajputist POC GLUCOSE 2020-05-24 05:12:00 Elvin Rajput [facility] POC GLUCOSE 2020-05-24 03:54:00 Elvin Rajput XR CHEST 1 VW PORTABLE 2020-05-24 03:12:00 Aminah Og [facility] POC GLUCOSE 2020-05-24 03:05:00 Elvin Rajput [facility] POC GLUCOSE 2020-05-24 01:56:00 Elvin Rajput [facility] POC GLUCOSE 2020-05-24 00:10:00 Elvin Rajput B NATRIURETIC PEPTIDE 2020-05-24 00:08:00 Aminah Og [facility] PARTIAL THROMBOPLASTIN 2020-05-24 00:08:00 Vivek Quinteros [facility] TIME (PTT) BASIC METABOLIC PANEL 2020-05-24 00:08:00 Rosario Wild [facility] Natanael HC COMPLETE BLD COUNT 2020-05-24 00:08:00 Rosario Wild Mariummarlon rihcardson [facility] W/AUTO DIFF Natanael PHOSPHORUS LEVEL 2020-05-24 00:08:00 Wild Rosario Reilly [facility] Natanael MAGNESIUM LEVEL 2020-05-24 00:08:00 Junito Rosario Reilly [facility] Natanael LACTIC ACID LEVEL 2020-05-24 00:08:00 Junito Rosario Doty n [facility] Natanael IONIZED CALCIUM 2020-05-24 00:08:00 WildRosario [facility] Natanael HEPATIC FUNCTION PANEL 2020-05-24 00:08:00 Rosario [...] COMPLETE BLD COUNT 2020-05-23 18:15:00 OrganAminah shepherd [facility] W/AUTO DIFF LACTIC ACID LEVEL 2020-05-23 18:05:00 OrganekAminah ethodist TROPONIN 2020-05-23 18:05:00 OrganAminah shepherd Met hodist POC GLUCOSE 2020-05-23 17:56:00 Elvin Rajputist POC GLUCOSE 2020-05-23 17:12:00 Elvin Rajput BUN LEVEL 2020-05-23 16:00:00 Vivek Quinteros thodist CREATININE LEVEL 2020-05-23 16:00:00 Vivek Quinteros ethodist IONIZED CALCIUM 2020-05-23 16:00:00 Vivek Quinteros MRadha Reilly Tx thodist MAGNESIUM LEVEL 2020-05-23 16:00:00 Vivek Quinteros Tx thodist PHOSPHORUS LEVEL 2020-05-23 16:00:00 Vivek Quinteros Trang ethodist POTASSIUM LEVEL 2020-05-23 16:00:00 Vivek Quinteros Tx thodist PARTIAL THROMBOPLASTIN 2020-05-23 16:00:00 Vivek Quinteros [facility] TIME (PTT) SODIUM LEVEL 2020-05-23 16:00:00 Vivek Quinteros Tx thodist ESTIMATED GFR 2020-05-23 16:00:00 Vivek Quinteros Tx thodist POC GLUCOSE 2020-05-23 15:56:00 Elvin Rajput POC GLUCOSE 2020-05-23 14:56:00 Elvin Rajput POC GLUCOSE 2020-05-23 13:59:00 Elvin Rajput POC GLUCOSE 2020-05-23 13:00:00 Elvin Rajput BASIC METABOLIC PANEL 2020-05-23 12:30:00 Vivek Quinteros ESTIMATED GFR 2020-05-23 12:30:00 Vivek Quinteros Tx thodist POC GLUCOSE 2020-05-23 12:01:00 Elvin Rajput LACTIC ACID LEVEL 2020-05-23 12:00:00 Aminah Og ethodist TROPONIN 2020-05-23 12:00:00 Aminah Og Met hodist POC GLUCOSE 2020-05-23 11:01:00 Elvin Rajput US HEPATIC 2020-05-23 10:50:53 Aminah Og Met hodist US RENAL 2020-05-23 10:28:00 Vievk Quinteros Tx thodist POC GLUCOSE 2020-05-23 10:12:00 Elvin Rajput XR CHEST 1 VW PORTABLE 2020-05-23 10:10:00 Aminah Og [facility] POC GLUCOSE 2020-05-23 09:21:00 Elvin Rajput ECG 12-LEAD 2020-05-23 09:15:48 OrganekAminah Met hodist URINE CULTURE 2020-05-23 08:24:00 OrganekAminah Met hodist POC GLUCOSE 2020-05-23 08:14:00 Elvin Rajput URINALYSIS SCREEN AND 2020-05-23 08:00:00 Organek, Aminah Valencia on [facility] MICROSCOPY, WITH REFLEX TO CULTURE LACTIC ACID [...] thodist PARTIAL THROMBOPLASTIN 2020-05-23 00:10:00 OrganAminah shepherd [facility] TIME (PTT) PROTHROMBIN TIME WITH INR 2020-05-23 00:10:00 OrganekAminah [facility] FIBRINOGEN 2020-05-23 00:10:00 OrganAminah shepherd Met hodist B NATRIURETIC PEPTIDE 2020-05-23 00:10:00 OrganekAminah on [facility] HEPATIC FUNCTION PANEL 2020-05-23 00:10:00 Aminah Og [...] Met hodist ARTERIAL BLOOD GAS 2020-05-22 18:00:00 Mcihelle Schmidt [facility] ECG 12-LEAD 2020-05-22 17:56:11 Lenka Aminah Reilly [...] METABOLIC PANEL 2020-05-22 16:00:00 Aminah Og on [facility] ESTIMATED GFR 2020-05-22 16:00:00 Aminah Og Met hodist POC GLUCOSE 2020-05-22 16:00:00 Elvin Rajput [facility] BLOOD CULTURE, AEROBIC & 2020-05-22 15:55:00 Aminah Og [facility] ANAEROBIC ECG 12-LEAD 2020-05-22 12:51:06 Aminah Og Met hodist POC GLUCOSE 2020-05-22 12:17:00 Elvin Rajput ARTERIAL BLOOD GAS 2020-05-22 12:10:00 Michelle Schmidt stoangela [facility] TROPONIN 2020-05-22 12:00:00 Michelle Schmidt n [facility] LACTIC ACID LEVEL 2020-05-22 12:00:00 Michelle Schmidt [facility] ECG 12-LEAD 2020-05-22 08:34:16 Aminah Og Met hodist ECG 12-LEAD 2020-05-22 08:29:22 Elvin Rajput [facility] LACTIC ACID LEVEL 2020-05-22 08:05:00 Aminah Og M ethodist TROPONIN 2020-05-22 08:05:00 Aminah Og Met hodist B NATRIURETIC PEPTIDE 2020-05-22 08:05:00 Aminah Og on [facility] PROTHROMBIN TIME WITH INR 2020-05-22 08:05:00 Aminah Og [facility] PARTIAL THROMBOPLASTIN 2020-05-22 08:05:00 Aminah Og [facility] TIME (PTT) FIBRINOGEN 2020-05-22 08:05:00 Aminah Og Met hodist HC COMPLETE BLD COUNT 2020-05-22 08:05:00 Aminah Og on [facility] W/AUTO DIFF BASIC METABOLIC PANEL 2020-05-22 08:05:00 OrganAminah shepherd on [facility] IONIZED CALCIUM 2020-05-22 08:05:00 Aminah Og Met hodist MAGNESIUM LEVEL 2020-05-22 08:05:00 OrganAminah shepherd Met hodist ESTIMATED GFR 2020-05-22 08:05:00 Aminah Og Tommie Whitmore hodist POC GLUCOSE 2020-05-22 07:52:00 Elvin Rajput ARTERIAL BLOOD GAS 2020-05-22 07:26:00 Michelle Schmidt LACTIC ACID LEVEL 2020-05-22 06:00:00 Michelle Schmidt [facility] TROPONIN 2020-05-22 06:00:00 Michelle Schmidt AK INSERT 2020-05-22 05:27:16 Michelle Schmidt CATH,ART,PERCUT,SHORTTERM VENOUS BLOOD GAS 2020-05-22 05:00:00 Michelle Schmidt on Evangelical POC GLUCOSE 2020-05-22 04:10:00 Elvin Rajput ARTERIAL BLOOD GAS 2020-05-22 03:36:00 Elvin Rajput on Evangelical ARTERIAL BLOOD GAS 2020-05-22 02:25:00 Michelle Schmidt TTE COMPLETE, W CONTRAST, 2020-05-22 02:15:00 Michelle Schmidt Ma W DOPPLER ([id number]) XR CHEST 1 VW PORTABLE 2020-05-21 23:40:26 Nieves Lazcano Candy HC CVL NON-TUNNELED 2020-05-21 23:30:00 Pratima Salomon [facility] INSERT 5YRS OR > HC COMPLETE BLD COUNT 2020-05-21 23:22:00 Michelle Schmidt W/AUTO DIFF FIBRINOGEN 2020-05-21 23:22:00 Michelle Schmidt PARTIAL THROMBOPLASTIN 2020-05-21 23:22:00 Michelle Schmidt TIME (PTT) PROTHROMBIN TIME WITH INR 2020-05-21 23:22:00 Michelle Schmidt Ma TROPONIN 2020-05-21 23:22:00 Michelle Schmidt B NATRIURETIC PEPTIDE 2020-05-21 23:22:00 Michelle Schmidt COMPREHENSIVE METABOLIC 2020-05-21 23:07:00 Michelle Schmidt [facility] PANEL IONIZED CALCIUM 2020-05-21 23:07:00 Michelle Schmidt [facility] LACTIC ACID LEVEL 2020-05-21 23:07:00 Michelle Schmidt [facility] MAGNESIUM LEVEL 2020-05-21 23:07:00 Michelle Schmidt [facility] PHOSPHORUS LEVEL 2020-05-21 23:07:00 Michelle Schmidt on Evangelical ESTIMATED GFR 2020-05-21 23:07:00 Michelle Schmidt [facility] POC GLUCOSE 2020-05-21 22:55:00 Elvin Rajput [facility] ARTERIAL BLOOD GAS 2020-05-21 22:00:00 Nieves Lazcano Evangel[facility] Candy HC COMPLETE BLD COUNT 2020-05-21 21:53:00 Nieves Lazcano on Evangel[facility] W/AUTO DIFF Candy COMPREHENSIVE METABOLIC 2020-05-21 21:53:00 Nieves Lazcano [facility] PANEL Candy MAGNESIUM LEVEL 2020-05-21 21:53:00 Nieves [...] Rajput PARTIAL THROMBOPLASTIN 2020-05-21 21:50:00 Elvin Rajput [facility] TIME (PTT) TYPE AND SCREEN 2020-05-21 21:50:00 Elvin Rajput PREPARE RBC 2020-05-21 21:50:00 Michelle Schmidt PREPARE FRESH FROZEN 2020-05-21 21:50:00 Michelle Schmidt PLASMA ECG 12-LEAD 2020-05-21 21:35:38 Nieves Lazcano POC GLUCOSE 2020-05-21 21:32:00 Elvin Rajput POC GLUCOSE 2020-05-21 19:49:00 Elvin Rajput POC GLUCOSE 2020-05-21 17:29:00 Evlin Rajput POC GLUCOSE 2020-05-21 10:27:00 Elvin Rajptu POC GLUCOSE 2020-05-21 07:59:00 Elvin Rajput HC [...] POC GLUCOSE 2020-05-21 05:13:00 Elvin Rajput SARS-COV2/RT-PCR ([facility] & 2020-03-29 21:15:00 [facility] Plan of Care Planned Activity Planned Date Details Comments Source Future Scheduled 2020-04-22 INFLUENZA VACCINE Lalitha miller [facility] 00:00:00 [code = INFLUENZA VACCINE] Future Scheduled 2003 65+ PNEUMOCOCCAL [place] [facility] 00:00:00 VACCINE (1 of 1 - PPSV23) [code = 65+ PNEUMOCOCCAL VACCINE (1 of 1 - PPSV23)] Future Scheduled 1988 SHINGLES VACCINES (#1) [facility] 00:00:00 [code = SHINGLES VACCINES (#1)] Future Scheduled 1954 COVID-19 VACCINE (#1) [place] [facility] 00:00:00 [code = COVID-19 VACCINE (#1)] Future Scheduled 1948 DIABETES: RETINAL EYE [place] [facility] 00:00:00 EXAM [code = DIABETES: RETINAL EYE EXAM] Future Scheduled 1948 DIABETIC FOOT EXAM [place] [facility] 00:00:00 [code = DIABETIC FOOT EXAM] Future Scheduled 1948 URINE MICROALBUMIN [place] [employer] [facility] 00:00:00 [code = URINE MICROALBUMIN] Encounters Start End Encounter Admission Attending Care Care Encounter Source Date/Time Date/Time Type Type Clinicians Facility Department ID 2020-07-20 2020-07-20 Orders Doctor MONICA [id number] 00:00:00 00:00:00 Only Unassigned, LORRI [id number] [place] [facility] [id number] 2020-07-17 2020-07-17 Transition Kaushal Dunbar [id number] 00:00:00 00:00:00 of Care Bobbi Leger [id number] [place] [id number] 2020-05-21 2020-06-06 Inpatient [facility] [id number] [place] 00:00:00 00:00:00 ELVIN [address] [...] hrs and at 3 hrs.Myocardial infarction VERY 80802-0) LIKELYThe 0 hr TnI level is > [...] Abnorm Interpret al ation (test code = 74871-9) [facility] [id number] 11:38:10 Test Item Value Reference Range Interpretation Comments POC glucose (test code 213 mg/dL 65-99 H Opera tor Name: Brennon = [id number]) FamataDevice ID : [id number] able: [facility] Notified director of district office Interpretation Abnormal (test code = 25853-3) [facility] – [place] oojjz8901-80-85 05:26:26 Test Item Value Reference Range Interpretation Comments Sodium (test code = 140 135- 148 mEq/L 2951-2) Potassium (test code = 4.2 3.5- 5.0 mEq/L 2823-3) Chloride (test code = 93 98- 112 mEq/L L 2074-0) CO2 (test code = 2027-) 30 24- 31 mEq/L Anion gap (test code = 17@ANIO 7- 15 mEq/L H 34174-8) BUN (test code = 3094-0) 77 mg/dL 8-23 H Creatinine (test code = 1.74 mg/dL 0.5-0.9 H 2160-0) Glucose (test code = 88 mg/dL 65-99 2345-7) Calcium (test code = 10.0 mg/dL 8.8-10.2 60328-0) Protein (test code = 7.4 g/dL 6.3-8.3 -[place] n 2885-2) 4.6-7.0 g/dL1 week 4.4-7 .6 g/dL7 months-1y ear 5.1-7 .3 g/dL1-2 years 5.6-7 .5 g/dL>3 years 6.0-8 .0 g/dK40-187 6.3-8 .3 g/dL Albumin (test code = 4.4 g/dL 3.5-5 1751-7) A/G ratio (test code = 1.5 0.7-3.8 1759-0) Alkaline phosphatase 98 U/L 35-104 (test code = 6768-6) AST (test code = 1920-8) 47 U/L 10-35 H ALT (test code = 1742-6) 62 U/L 5-50 H Total bilirubin (test 1.3 mg/dL 0-1.2 H code = 1974-) Lab Interpretation (test Abnormal code = 97375-9) [facility] MethodistMagnesium jnhmo2685-34-09 05:26:26 Test Item Value Reference Range Interpretation Comments Magnesium (test code = 66743-5) 1.9 mg/dL 1.6-2.4 [facility] MethodistEstimated [id number] 05:26:26 Test Item Value Reference Range Interpretation Comments Estimated GFR (test 27 mL/min/1.73 m2 Fritz dwyer Units code = 5488) InterpretationG 1 >=90 Paty l or highG2 60-89 Mildly decrease dG3a 45-59 Mil dly to moderately decr vipdsP2h 30-44 Moderately to s everely decreasedG4 15-29 Severe ly decreasedG5 <15 Kidney renée lureThe eGFR was calcul ated using the [facility] Kidney Disease Epidemiology Collaboration ( CKD-EPI) equation. Interpretation is based on recommendati ons of the National Ki dney Foundation-Kidn ey Disease Outcome s Quality Initiat judi (NKF-KDOQI) pub lished in 2013. Lab Interpretation Abnormal (test code = 90587-3) [facility] MethodistPhosphorus yrhlf4409-62-63 05:26:24 Test Item Value Reference Range Interpretation Comments Phosphorus (test code = 2777-1) 2.9 mg/dL 2.4-4.5 [facility] MethodistCBC with platelet and ficfvlunshck3923-41-90 04:59:46 Test Item Value Reference Range Interpretation Comments WBC (test code = 19226-7) 8.46 4.50- 11.00 k/uL RBC (test code = 08425-1) 3.92 m/uL 4.2-5.5 L HGB (test code = 718-7) 10.5 g/dL 12-16 L HCT (test code = 4544-3) 32.6 % 37-47 L MCV (test code = 787-2) 83.2 fL 82-100 MCH (test code = 785-6) 26.8 pg 27-34 L MCHC (test code = 786-4) 32.2 g/dL 31-37 RDW - SD (test code = 50.7 fL 37-55 64818-4) MPV (test code = 54028-4) 11.5 fL 8.8-13.2 Platelet count (test code 299 150- 400 k/uL = 59526-5) Nucleated RBC (test code 0.00 /100 WBC = 69151-1) Neutrophils (test code = 76.2 % 39-69 H 44764-1) Lymphocytes (test code = 10.2 % 25-45 L 58672-0) Monocytes (test code = 8.4 % 0-10 44787-9) Eosinophils (test code = 3.8 % 0-5 17827-2) Basophils (test code = 0.8 % 0-1 50562-7) Immature granulocytes 0.6 % 0-1 "Immat ure (test code = 96099-1) granul ocytes" (promyelocytes, myelocytes, metamyelocytes) Lab Interpretation (test Abnormal code = 15131-9) [facility] dhlnp7388-68-69 07:13:08 Test Item Value Reference Range Interpretation Comments Sodium (test code = 2951-2) 135 135- 148 mEq/L Potassium (test code = 2823-3) 4.6 3.5- 5.0 mEq/L Chloride (test code = 2075-0) 90 98- 112 mEq/L L CO2 (test code = 2028-9) 26 24- 31 mEq/L Anion gap (test code = 70722-8) 19@ANIO 7- 15 mEq/L H BUN (test code = 3094-0) 84 mg/dL 8-23 H Creatinine (test code = 2160-0) 1.68 mg/dL 0.5-0.9 H Glucose (test code = 2345-7) 96 mg/dL 65-99 Calcium (test code = 31125-8) 9.6 mg/dL 8.8-10.2 Lab Interpretation (test code = Abnormal 68776-1) [place] MethodistHepatic function hvijl6448-88-16 07:54:39 Test Item Value Reference Range Interpretation [...] g/dL 1-2 years 5.6-7.5 g/dL>3 years 6.0-8.0 g/eA12-821 6.3-8. 3 g/dL ALT (test code = 1742-6) 68 U/L 5-50 H AST (test code = 1920-8) 57 U/L 10-35 H Lab Interpretation (test Abnormal code = 50278-5) [facility] MethodistDigoxin jdilf5601-68-19 07:54:39 Test Item Value Reference Range Interpretation Comments Digoxin (test code = 1.0 ng/mL 0.8-2 For phillip id Digoxin 70982-7) results, at [address] 6 hours should el apse between time of last dose and collec tion of blood.Otherwise , result may be false high.Therapeuti c Range:0.8 - 2.0 ng/mL [facility] MethodistPartial thromboplastin time, eeatyqnrb8392-44-77 07:49:07 Test Item Value Reference Range Interpretation Comments PTT (test code = 30.7 23.0- 36.0 [place] [address]-1) unfractionated heparin is61.0-112.0 se conds which corresponds to Anti-Xa0.3-0.7 U/ml. [facility] MethodistUrinalysis screen and microscopy, with reflex to culture 2020-06-02 03:36:27 Test Item Value Reference Range Interpretation Comments Specimen site (test code = Random void 8231252) Color, UA (test code = 5778-6) Straw Appearance, UA (test code = Clear 5767-9) Specific gravity, UA (test code = 1.008 1.001-1.035 5811-5) pH, UA (test code = 5803-2) 5.0 5.0-8.5 Protein, UA (test code = 24934-9) 1+ Negative A Glucose, UA (test code = 59958-1) Negative Negative Ketones, UA (test code = 2514-8) Negative Negative Bilirubin, UA (test code = Negative Negative 5770-3) Blood, UA (test code = 5794-3) Negative Negative Nitrite, UA (test code = 5802-4) Negative Negative Urobilinogen, UA (test code = <2.0 <2.0 39353-5) Leukocyte esterase, UA (test code Negative Negative = 5799-2) Epithelial cells, UA (test code = <1 /HPF 5787-7) Round epithelial cells, UA (test <1 0- 1 /HPF code = 03736-9) WBC, UA (test code = 5821-4) 1 0- 4 /HPF RBC, UA (test code = 46178-4) None seen 0- 5 /HPF Bacteria, UA (test code = None seen None seen 10226-1) Yeast, UA (test code = 80828-2) Few A Yeast with pseudohyphae, UA (test None seen code = 35335-0) Lab Interpretation (test code = Abnormal 71005-1) [facility] GoldbergUrine xcnjogx6586-98-11 03:32:20 Test Item Value Reference Range Interpretation Comments Urine culture (test SEE COMMENT Bacteriu mahin screen code = 3656602) negative. [facility] AragonistCOVID-19 qualitative JSF5515-24-23 02:33:16 Test Item Value Reference Range Interpretation Comments Interpretation (test Negative results do code = 3049942) not preclude 2019-nCoV infection and should not be used as the sole basis for treatment or other patient management decisions. Negative results must be combined with clinical observations, patient history, and epidemiological information. COVID-19 qualitative Not-Detected Not-Detected PCR result (test code = 26876-8) COVID-19 qualitative See link below for C ase Number: PCR (test code = PDF Lab Report [id number]) [facility] MethodistB natriuretic dyxvygi9187-88-00 01:20:28 Test Item Value Reference Range Interpretation Comments BNP (test code = >5000 0-100 [place] [address]-1) BNP most likely represents rece nt infusionof patrica mbinant BNP. For monito ring, because of the short half-life of BN P (20 minutes), measu rements taken 2 hours aftercessation of treatment again reflects the le charlie of endogenousBNP. Lab Interpretation Abnormal (test code = 75072-3) [facility] MethodistAnti Xa, djqngjqsyhxbqq3197-72-97 16:45:18 Test Item Value Reference Range Interpretation Comments Anti Xa, unfractionated Footnote 0.3-0.7 Ther apeutic Range: (test code = 3274-8) 0.30 - 0.70 U/mLUnable to p erform testing, specim en is QNS_. Recollec t requested for X AUFH (tests). [address] [place]/A8 (name/location) notified by Adan _ (tech ID) at 1 7:00 05/28/2020 (date/time). C redit issued. [facility] MethodistECG 12 qzhz0875-30-92 22:25:35 Test Item Value Reference Range Interpretation [...] 09:22,-No significant change was found- [facility] MethodistIonized wxsphte6353-02-48 05:33:23 Test Item Value Reference Range Interpretation Comments pH (test code = 2753-2) 7.56 Ionized calcium (test code = 1.02 mmol/L 1.11-1.32 L ) Lab Interpretation (test code = Abnormal 89671-3) [place] MethodistBlood culture, aerobic & qxejhwxne9858-52-20 19:03:03 Test Item Value Reference Range Interpretation Comments Blood culture No growth Specimen isolate (test after 5 days InformationSpe cimen code = 600-7) of Source: BloodS pecimen incubation. Site: Wrist, Le ft [place] MethodistProthrombin time with HRS2300-52-73 01:18:04 Test Item Value Reference Range Interpretation Comments Prothrombin time (test 20.3 11.5- 14.5 sec H code = 5902-2) INR (test code = 1.7 [facility] 44356-7) Normalized Rati o (INR) is a therapeuti c monitoring tool for patients who ar e stable on oral anticoagulant t herapy. An INR of 2.0-3 .0 is suggested for d eep vein thrombosis/pulm onary embolism. Lab Interpretation Abnormal (test code = 69050-2) [place] MethodistXR Chest 1 Vw Zagpsrbr7791-16-55 10:52:56Hm Interface, Radiology Results - 05/26/2020 10:56 [...] pear stable without evidence of fracture or migration.[facility]-[id number] and approved by residential carpet installer/fellow: Hernan Turcios M.D.I, Connor Alarcon MD, personally reviewed the images and resident's/fellow's findings and agree with the final report.[facility] MethodistHemoglobin U4v2856-33-77 10:15:18 Test Item Value Reference Range Interpretation Comments Hemoglobin A1C (test 10.7 % 4-5.6 H HbA1c c utoffs for code = 03198-5) diagnosing diabetes:4.0% - 5.6% = normal5.7% - 6.4% = increased risk for diabetes (prediabetes)9> =6.5% = vzvdlryg4Mees s for glycemic contro l (ADA 2016)< 7.0% Ta rget for non adults with deangelo betes. More or less stringent targe ts may be appropriate for individual tod ents. <7.5% Target for Children and adolescents wit h type 1 diabetes. Lab Interpretation (test Abnormal code = 14612-8) [facility] MethodistArterial blood wpx7112-93-79 00:55:36 Test Item Value Reference Range Interpretation [...] 2708-6) Lab Interpretation (test code = Abnormal 66064-7) [facility] AragonistIonized calcium, vybbimoo9964-57-66 00:55:36 Test Item Value Reference Range Interpretation Comments Ionized calcium, arterial (test 1.10 mmol/L 1.11-1.32 L code = 23338-9) Lab Interpretation (test code = Abnormal 84781-0) [facility] AragonWtbrlyyrmFWO7223-51-69 00:53:48 Test Item Value Reference Range Interpretation Comments GGT (test code = 2324-2) 76 U/L 0-39 H Lab Interpretation (test code = Abnormal 25017-1) [facility] GoldbergVancomycin level, etfsbw0393-19-87 00:52:02 Test Item Value Reference Range Interpretation Comments Vancomycin, random (test code = 16.0 ug/mL 40608-3) [facility] MethodistVenous blood oxv0852-89-56 00:28:29 Test Item Value Reference Range Interpretation [...] venous (test code = 27.4 mmol/L 21-28 79643-4) Lab Interpretation (test code = Abnormal 29288-8) [place] MethodistSodium syfhk4110-13-03 17:22:46 Test Item Value Reference Range Interpretation Comments Sodium (test code = 2951-2) 131 135- 148 mEq/L L Lab Interpretation (test code = Abnormal 63797-0) [place] MethodistCreatinine xyvao1780-78-83 09:08:26 Test Item Value Reference Range Interpretation Comments Creatinine (test code = 2160-0) 3.25 mg/dL 0.5-0.9 H Lab Interpretation (test code = Abnormal 81207-2) [place] MethodistPotassium hxunf3980-02-04 09:08:26 Test Item Value Reference Range Interpretation Comments Potassium (test code = 2823-3) 3.3 3.5- 5.0 mEq/L L Lab Interpretation (test code = Abnormal 85715-2) [place] MethodistBUN nleke4378-24-56 09:08:26 Test Item Value Reference Range Interpretation Comments BUN (test code = 3094-0) 47 mg/dL 8-23 H Lab Interpretation (test code = Abnormal 13767-6) [place] SqaospktxPxgozxbkna9071-95-04 01:22:50 Test Item Value Reference Range Interpretation Comments Fibrinogen (test code = 00938-3) 265 mg/dL 200-450 [place] MethodistLactic acid pqnmy2941-10-88 01:16:27 Test Item Value Reference Range Interpretation Comments Lactic acid (test code = 45382-7) 2.0 mmol/L 0.5-2.2 [place] MethodistUS Zlxaces2902-47-76 12:16:06Hm Interface, Radiology Results 05/23/2020 12:19 PM [...] the main portal vein.4.A smallpleural effusion is suspected.[facility]-[id number] MaheshistUS Kjvmf6738-61-46 11:09:18Hm Interface, Radiology Results 05/23/2020 11:12 AM CDTEXAMINATION: US RENALCLINICAL HISTORY: Renal failure chronic (kidney disease), patient ANURICCOMPARISON: June 16, 2019IMPRESSION: The right kidney measures 9.6 x 5.1 x 4.7.The left kidney measures 10.1 x 5.7 x 5.1.The kidneys are normal in size and echogenicity. There is no evidence of renal mass, calculi, or hydronephrosis.A catheter is present within a nondistended bladder.[facility]-5HO0027LVCYckpaqc MethodistHepatitis acute yeoil1962-70-26 21:25:25 Test Item Value Reference Range Interpretation Comments Hepatitis A IgM (test Non-reactive Non-reactive code = 67202-3) Hepatitis B core IgM Non-reactive Non-reactive (test code = 40070-4) Hepatitis B surface Ag Non-reactive Non-reactive (test code = 5195-3) Hepatitis C Ab (test Non-reactive Non-reactive code = 33565-7) BERNADETTE (test code = BERNADETTE) LACID results called to and read back by BRE PINTO(name/location) at 05/22/2020 20:45 (date/time) by PC. [place] EvangelicalTransthoracic Echocardiogram Complete, (w Contrast, Strain and 3D if needed)2020-05-22 10:29:00Interface, Radiology Results In - 05/22/2020 10:29 AM CDT Echocardiography Report [id number] [address] Pat.Name: NASIR DAS.ID: [id number].Date: 05/22/2020 Refer.MD: ELVIN RAJPUT MD Exam Time: 12:55:00 AM Study Type:Routine Echo Height: 68in Weight: 161lb BSA: 1.87 m2 Age: 1 1940,79Y Sex: FEMALE BP: 150/87 HR: 53 bpm Sonogrphr: Jailyn Torres RDCS, RVT Pat. Stat.:Inpatient Room: [place] [address] Study Status:Final Echo Event ID:[id number] Order ID: [id number] Reason forStudy:Acute hemo instability with hypotension (sys<100mmHg)History [...] meanRAP of 15-20 mmHg. MEASUREMENTS: 2DParasternal Long [place] Ao An 1.6 cm LVPWd 1.5 cm [...] 30 mmHg Signed 05/22/2020 10:29 Charito Mcneal M.D.[place] [facility] Smear swaopr4275-02-53 05:29:43 Test Item Value Reference Range Interpretation Comments Platelet slide review (test code = Decreased A 29915-6) Anisocytosis (test code = 702-1) Moderate Polychromasia (test code = Moderate 41802-5) Ovalocytes (test code = 774-0) Moderate Ramses cells (test code = 7790-9) Many A Acanthocytes (test code = 7789-1) Occasional Enlarged platelets (test code = Moderate A 37724-3) Lab Interpretation (test code = Abnormal 41654-6) [facility] MethodistArterial Line Dbaglufim7792-85-50 05:27:16Michelle Schmidt NP 05/22/2020 5:28 AMArterial Line [...] tolerance of procedure: Tolerated well, no immediate complicationsOrlando MethodistPrepare RBC, 4 Icoul2530-81-73 01:59:00 Test Item Value Reference Range Interpretation Comments Product name (test code Red Blood Cells -1, = 25) Leukored Unit number (test code [id number] = 5634898) Product code (test code E7573V98 = 3092) Dispense status (test Returned to not code = 24) transfused Blood expiration date (test code = 302) Blood type code (test 7300 code = 308) Blood type (test code = B POSITIVE 1314) Compatibility (test Compatible code = 6400) [place] MethodistPrepare fresh frozen plasma, 3 Rbobt8371-07-88 01:59:00 Test Item Value Reference Range Interpretation Comments Product name (test code = 25) Thawed Plasma Unit number (test code = [id number]) Product code (test code = 3092) [id number] Dispense status (test code = Transfused 24) Blood expiration date (test code = 302) Blood type code (test code = 7300 308) Blood type (test code = 1314) B POSITIVE Compatibility (test code = Not required 6400) [facility] MethodistCentral Line Ptjrgcoeb7600-70-46 23:30:00Pratima Salomon NP 05/22/2020 5:23 AMCentral Line [...] tolerance of procedure: Tolerated well, no immediate complicationsOrlando MethodistType and screen 2020-05-21 23:07:00 Test Item Value Reference Range Interpretation Comments ABO grouping (test code = 883-9) B Rh type (test code = 16614-3) POS Antibody screen (gel) (test code = NEG 890-4) [facility] MethodistLipid ljfrq5145-43-40 07:43:14 Test Item Value Reference Interpretation Comments Range Cholesterol (test 108 mg/dL <200 code = 2093-3) Triglycerides (test 67 mg/dL <150 code = 2571-8) HDL cholesterol 41 mg/dL >40 (test code = 2085-9) LDL cholesterol 58 mg/dL <100 Result obtai erna by direct (test code = 2089-1) LDL suzan surement Lipid panel SeeBelow Total Cholester ol (mg/dL) interpretation (test < 200 code = 84599-9) Desirable 200-239 Borderline -high >=240 Hi gh [...] high triglycerides ( >=200 mg/dL) [facility] MethodistT4, dcrj6596-79-10 07:41:22 Test Item Value Reference Range Interpretation Comments T4, free (test code = 3024-7) 1.5 ng/dL 0.9-1.7 [facility] AragonistThyroid stimulating llfzppd2408-79-07 07:41:22 Test Item Value Reference Range Interpretation Comments TSH (test code = 3016-3) 5.93 0.27- 4.20 uIU/mL H Lab Interpretation (test code = Abnormal 29704-5) [facility] RosenbaumARS-CoV2/RT-PCR ([facility])2020-03-30 13:09:00 Test Item Value Reference Range Interpretation Comments SARS-COV2/RT-PCR Negative Not Detected, (test code = Negative 31617-3) SARS-COV-2 [facility] PERFORM[facility] (test code = 50848-2) BERNADETTE (test code = Negative result for [...] of the Act. Fact Sheet for Healthcare Providers:https://www.[employer].Backspaces/sites/default/f michele/product/documents/F act_Sheet_HC_Providers_L jdq_CMID-NvI-1.pdf Fact Sheet for Healthcare Patients:https://www.PostedIn.com/sites/default/fi les/product/documents/Fa ct_Sheet_Patients_Ly_S ARS-CoV-2.pdf Performing Laboratory:[facility] [place] [address] [facility])2020-03-30 13:09:00 Test Item Value Reference Range Interpretation Comments SARS-COV2/RT-PCR (test code = Negative Not Detected, Negative 3711374) SARS-COV-2 PERFORMING LAB [facility] (test code = 8094909) Negative result for this test determines that [...] 564(g) of the Act.Fact Sheet for Healthcare Providers:https://www.[employer]/sites/default/files/product/documents/Fact_Shee c_FU_Ykohmbsjq_Qhqv_HMDJ-JbH-9.pdfFact Sheet for Healthcare Patients:https://www.[employer]/sites/default/files/product/ documents/Caoq_Kqqug_Qptrglir_Thgs_MJAB-XyA-2.pdfPerforming Laboratory:[facility] [place] [address]
[2020-09-17 21:02] LABS: Absolute Lymphocytes (CBC) 0.3 K/uL (0.7-4.9); Basophils % 0.2 % (0-1.3); Hematocrit 45.2 % (36.0-45.0); Lymphocytes % 2.8 % (15.3-44.8); MPV 10.1 fL (7.6-11.3); RBC Red Blood Cell Count 5.25 M/uL (3.86-4.86)
[2020-09-17] MEDS ORDERED: dilTIAZem HCL 25 MG/5 ML VIAL IV ONE (21:21)
[2020-09-17 22:11] LABS: Protime INR 6.22
[2020-09-17 22:22] LABS: Anisocytosis 1+; Blood Morphology Comment NOTED (NOT SEEN); Hypochromasia 1+; Platelet Estimate ADEQ
[2020-09-17 22:24] LABS: Albumin 2.5 g/dL (3.4-5.0); Bilirubin Direct 1.5 mg/dL (0-0.2); Bilirubin Total 1.8 mg/dL (0.2-1.0); Magnesium 2.1 mg/dL (1.8-2.4); Potassium 4.9 mmol/L (3.5-5.1); Protein, Total 6.5 g/dL (6.4-8.2); Troponin (Emerg Dept Use Only) 0.14 ng/mL (0.0-0.045)
--- NOTE | 2020-09-17 23:08 | EDPHYS ---
Physician Documentation [facility] Name: Lilian Avila Age: 79 yrs Sex: Female : 1940 Arrival Date: 09/17/2020 Time: 20:13 Bed 20 Private MD: ED Physician Mark Rhodes HPI: 09/18 01:16 This 79 yrs old Female presents to ER via Unassigned with complaints of CHEST tw4 PAIN. 01:16 The patient or guardian reports chest pain that is located primarily in the anterior tw4 chest wall. Onset: today. The pain does not radiate. Associated signs and symptoms: The patient has no apparent associated signs or symptoms. The chest pain is described as dull. Duration: The patient or guardian reports a single episode. Modifying factors: The symptoms are alleviated by nothing. the symptoms are aggravated by nothing. The patient has not experienced similar symptoms in the past. Historical: - Allergies: 09/17 21:02 Bactrim; ll2 21:02 Codeine (Hallucinations/agitation); ll2 21:02 Morphine (Hallucinations/agitation); ll2 21:02 PENICILLINS (rash); ll2 - Home Meds: 21:02 amiodarone 200 mg Oral tab [Active]; atorvastatin 80 mg Oral tab [Active]; clopidogrel ll2 75 mg Oral tab 1 tab once daily [Active]; fluoxetine 20 mg Oral cap 1 cap [Active]; furosemide 40 mg Oral tab [Active]; gabapentin 300 mg Oral cap [Active]; Januvia 50 mg Oral tab [Active]; spironolactone 50 mg Oral tab [Active]; primidone 50 mg Oral tab [Active]; pantoprazole 40 mg Oral TbEC [Active]; - Immunization history:: Adult Immunizations unknown. - Social history:: Smoking status: unknown. ROS: 09/18 01:16 Constitutional: Negative for fever, chills, and weight loss. tw4 Eyes: Negative for injury, pain, redness, and discharge, Respiratory: Negative for shortness of breath, cough, wheezing, and pleuritic chest pain, Abdomen/GI: Negative for abdominal pain, nausea, vomiting, diarrhea, and constipation, Back: Negative for injury and pain, MS/Extremity: Negative for injury and deformity, Skin: Negative for injury, rash, and discoloration, Neuro: Negative for headache, weakness, numbness, tingling, and seizure. Cardiovascular: Positive for chest pain, Negative for edema, orthopnea, palpitations, paroxysmal nocturnal dyspnea. Exam: 01:16 Constitutional: This is a well developed, well nourished patient who is awake, alert, tw4 and in no acute distress. Head/Face: Normocephalic, atraumatic. Chest/axilla: Normal chest wall appearance and motion. Nontender with no deformity. No lesions are appreciated. Cardiovascular: Regular rate and rhythm with a normal S1 and S2. No gallops, murmurs, or rubs. Normal PMI, no JVD. No pulse deficits. Respiratory: Lungs have equal breath sounds bilaterally, clear to auscultation and percussion. No rales, rhonchi or wheezes noted. No increased work of breathing, no retractions or nasal flaring. Abdomen/GI: Soft, non-tender, with normal bowel sounds. No distension or tympany. No guarding or rebound. No evidence of tenderness throughout. Back: No spinal tenderness. No costovertebral tenderness. Full range of motion. Skin: Warm, dry with normal turgor. Normal color with no rashes, no lesions, and no evidence of cellulitis. MS/ Extremity: Pulses equal, no cyanosis. Neurovascular intact. Full, normal range of motion. Neuro: Awake and alert, GCS 15, oriented to person, place, time, and situation. Cranial nerves II-XII grossly intact. Motor strength 5/5 in all extremities. Sensory grossly intact. Cerebellar exam normal. Normal gait. Vital Signs: 09/17 20:30 BP 116 / 91; Pulse 125; Resp 18; Temp 98.7; Pulse Ox 98% on 3 lpm NC; ll2 21:30 BP 107 / 68; Pulse 100; Resp 17; Pulse Ox 99% on 3 lpm NC; ll2 22:30 BP 103 / 62; Pulse 98; Resp 18; Pulse Ox 98% on 2 lpm NC; ll2 23:30 BP 122 / 77; Pulse 97; Resp 18; Pulse Ox 98% on R/A; ll2 MDM: 20:30 Patient medically screened. tw4 09/18 01:18 Differential diagnosis: abnormal EKG, coronary artery disease chest wall pain, tw4 gastroesophageal reflux disease (GERD), mitral valve prolapse, pulmonary embolus, thoracic aortic disection. Data reviewed: vital signs, nurses notes. Data interpreted: Pulse oximetry: Interpretation: normal. Counseling: I had a detailed discussion with the patient and/or guardian regarding: the historical points, exam findings, and any diagnostic results supporting the discharge/admit diagnosis. Special discussion: I discussed with the patient/guardian in detail that at this point there is no indication for admission to the hospital. It is understood, however, that if the symptoms persist or worsen the patient needs to return immediately for re-evaluation. 09/17 20:15 Order name: Basic Metabolic Panel; Complete Time: 23:03 tw4 09/17 23:04 Interpretation: Normal except: NA 132; CL 92; GLUC 226; BUN 61; CRE 2.51; GFR 18. tw09/17 20:15 Order name: CBC with Diff; Complete Time: 23:03 tw4 09/17 22:15 Interpretation: Normal except: RBC 5.25; RDW 20.4; HCT 45.2; LYMA 0.3; NEUT A 9.4; LYM% tw4 2.8; KOJO% 90.8. 09/17 20:15 Order name: LFT's; Complete Time: 23:03 tw4 09/17 23:04 Interpretation: Normal except: A/G 0.6; GLOB 4.0; ALB 2.5; BILID 1.5; BILIT 1.8; AST tw4 118. 09/17 20:15 Order name: Magnesium; Complete Time: 23:03 tw4 09/17 20:15 Order name: NT PRO-BNP; Complete Time: 23:03 tw4 09/17 23:03 Interpretation: Normal except: NT PRO-BNP [id number]. 09/17 20:15 Order name: PT-INR; Complete Time: 22:14 4 09/17 22:14 Interpretation: Abnormal: INR 6.22; PT 70.8. 09/17 20:15 Order name: Troponin (emerg Dept Use Only); Complete Time: 23:03 tw4 09/17 23:04 Interpretation: Normal except: TROPED 0.14. 09/17 20:15 Order name: XRAY Chest (1 view) 09/17 21:48 Order name: Manual Differential; Complete Time: 23:03 EDMS 09/18 01:05 Order name: Basic Metabolic Panel [facility] 09/18 01:05 Order name: Troponin I [facility] 09/18 01:06 Order name: Troponin I [facility] 09/18 01:06 Order name: SARS-COV-2 RT PCR [facility] 09/17 20:15 Order name: EKG; Complete Time: 20:16 tw4 09/17 20:15 Order name: Cardiac monitoring; Complete Time: 20:58 tw4 09/17 20:15 Order name: EKG - Nurse/Tech; Complete Time: 20:58 tw4 09/17 20:15 Order name: IV Saline Lock; Complete Time: 21:47 tw4 09/17 20:15 Order name: Labs collected and sent; Complete Time: 21:47 tw4 09/17 20:15 Order name: O2 Per Protocol; Complete Time: 21:47 tw4 09/17 20:15 Order name: O2 Sat Monitoring; Complete Time: 21:48 4 09/17 21:40 Order name: CT Head Brain wo Cont tw 09/17 23:05 Order name: CT Chest Wo Con tw4 Administered Medications: 09/17 21:00 Drug: Cardizem 10 mg Route: IVP; Site: right hand; ll2 22:00 Follow up: Response: No adverse reaction ll2 23:00 Drug: Vitamin K1 5 mg Route: IM; Site: left deltoid; ll2 09/18 00:00 Follow up: Response: No adverse reaction ll2 Disposition: 09/17/20 23:07 Hospitalization ordered by Efra Dye for Inpatient Admission. Preliminary diagnosis are Coagulation defect, unspecified, Unspecified combined systolic (congestive) and diastolic (congestive) heart failure, Unspecified atrial fibrillation. - Bed requested for Telemetry/MedSurg (Inpatient). - Status is Inpatient Admission. ll2 - Condition is Fair. - Problem is new. - Symptoms are unchanged. Signatures: Dispatcher [employer] [facility] Renee Obrien, RN RN Mark Rhodes MD MD tw4 Flor Garcia RN RN ll2 Corrections: (The following items were deleted from the chart) 09/17 23:24 22:12 Chest For PE Angio+CT.RAD.BRZ ordered. [facility] 09/18 00:18 09/17 22:52 CORONAVIRUS+MR.LAB.BRZ ordered. [facility] 09/18 00:24 09/17 23:07 Hospitalization Ordered by Justin Orosco MD for Inpatient Admission. tw4 Preliminary diagnosis is Coagulation defect, unspecified; Unspecified combined systolic (congestive) and diastolic (congestive) heart failure; Unspecified atrial fibrillation. Bed requested for Telemetry/MedSurg (Inpatient). Status is Inpatient Admission. Condition is Fair. Problem is new. Symptoms are unchanged. tw4 09/18 01:12 00:24 09/17/2020 23:07 Hospitalization Ordered by Efra Dye MD for Inpatient cg Admission. Preliminary diagnosis is Coagulation defect, unspecified; Unspecified combined systolic (congestive) and diastolic (congestive) heart failure; Unspecified atrial fibrillation. Bed requested for Telemetry/MedSurg (Inpatient). Status is Inpatient Admission. Condition is Fair. Problem is new. Symptoms are unchanged. tw4 01:45 01:12 09/17/2020 23:07 Hospitalization Ordered by Efra Dye MD for Inpatient ll2 Admission. Preliminary diagnosis is Coagulation defect, unspecified; Unspecified combined systolic (congestive) and diastolic (congestive) heart failure; Unspecified atrial fibrillation. Bed requested for Telemetry/MedSurg (Inpatient). Status is Inpatient Admission. Condition is Fair. Problem is new. Symptoms are unchanged. cg
--- NOTE | 2020-09-17 23:08 | ER ---
Nurse's Notes [facility] Name: Lilian Avila Age: 79 yrs Sex: Female : 1940 Arrival Date: 09/17/2020 Time: 20:13 Bed 20 Private MD: Diagnosis: Coagulation defect, unspecified;Unspecified combined systolic (congestive) and diastolic (congestive) heart failure;Unspecified atrial fibrillation Presentation: 09/17 20:15 Acuity: JARRETT 3 dm5 20:33 Chief complaint:. ll2 20:33 Method Of Arrival: EMS: [facility] ll2 20:33 Coronavirus screen: Client denies travel out of the [place] in the last 14 days. At this ll2 time, the client does not indicate any symptoms associated with coronavirus-19. Ebola Screen: Patient negative for fever greater than or equal to 101.5 degrees Fahrenheit, and additional compatible Ebola Virus Disease symptoms. Initial Sepsis Screen: Does the patient meet any 2 criteria? No. Patient's initial sepsis screen is negative. Initial Sepsis Screen: Does the patient have a suspected source of infection? No. Patient's initial sepsis screen is negative. Risk Assessment: Do you want to hurt yourself or someone else? Patient reports no desire to harm self or others. Onset of symptoms is unknown. Triage Assessment: 20:33 General: Appears uncomfortable, Behavior is pt is not orientated or verbally ll2 communicative . Historical: - Allergies: 21:02 Bactrim; ll2 21:02 Codeine (Hallucinations/agitation); ll2 21:02 Morphine (Hallucinations/agitation); ll2 21:02 PENICILLINS (rash); ll2 - Home Meds: 21:02 amiodarone 200 mg Oral tab [Active]; atorvastatin 80 mg Oral tab [Active]; clopidogrel ll2 75 mg Oral tab 1 tab once daily [Active]; fluoxetine 20 mg Oral cap 1 cap [Active]; furosemide 40 mg Oral tab [Active]; gabapentin 300 mg Oral cap [Active]; Januvia 50 mg Oral tab [Active]; spironolactone 50 mg Oral tab [Active]; primidone 50 mg Oral tab [Active]; pantoprazole 40 mg Oral TbEC [Active]; - Immunization history:: Adult Immunizations unknown. - Social history:: Smoking status: unknown. Screenin:30 Abuse screen: Denies threats or abuse. Nutritional screening: No deficits noted. ll2 Tuberculosis screening: No symptoms or risk factors identified. Fall Risk IV access (20 points). Ambulatory Aid- None/Bed Rest/Nurse Assist (0 pts). Gait- Weak (10 pts.). Mental Status- Overestimates/Forgets Limitations (15 pts.). Total Palmer Fall Scale indicates High Risk Score (45 or more points). Fall prevention measures have been instituted. Side Rails Up X 2 Placed Close to Nursing Station. Assessment: 20:20 General: Appears uncomfortable, Behavior is agitated. Pain: Unable to use pain scale. ll2 Patient is disoriented. Cardiovascular: Patient's skin is warm and dry. Respiratory: Airway is patent Respiratory effort is even, unlabored, Respiratory pattern is regular, symmetrical. GI: No signs and/or symptoms were reported involving the gastrointestinal system. : No signs and/or symptoms were reported regarding the genitourinary system. EENT: No signs and/or symptoms were reported regarding the EENT system. Derm: Skin is intact, Skin is dry, Skin is pink, warm \T\ dry. Musculoskeletal: Circulation, motion, and sensation intact. Range of motion: limited in all extremities. 21:30 Reassessment: Patient and/or family updated on plan of care and expected duration. Pain ll2 level reassessed. Patient is alert, oriented x 3, equal unlabored respirations, skin warm/dry/pink. 22:30 Reassessment: Patient and/or family updated on plan of care and expected duration. Pain ll2 level reassessed. Patient is alert, oriented x 3, equal unlabored respirations, skin warm/dry/pink. spoke to pt's son via phone. 23:30 Reassessment: Patient and/or family updated on plan of care and expected duration. Pain ll2 level reassessed. Patient is alert, oriented x 3, equal unlabored respirations, skin warm/dry/pink. 09/18 01:20 Reassessment: attempted to call report, requested by peter to call franck back in ll2 10 minutes. 01:42 Reassessment: report called to AFUA juárez pt wheeled upstairs via stretcher by surgery scheduler.2 Vital Signs: 09/17 20:30 BP 116 / 91; Pulse 125; Resp 18; Temp 98.7; Pulse Ox 98% on 3 lpm NC; ll2 21:30 BP 107 / 68; Pulse 100; Resp 17; Pulse Ox 99% on 3 lpm NC; ll2 22:30 BP 103 / 62; Pulse 98; Resp 18; Pulse Ox 98% on 2 lpm NC; ll2 23:30 BP 122 / 77; Pulse 97; Resp 18; Pulse Ox 98% on R/A; ll2 ED Course: 19:45 Inserted saline lock: 22 gauge in right wrist, using aseptic technique. Blood zb collected. Missed attempt(s): 22 gauge in right forearm. 20:13 Patient arrived in ED. tw4 20:14 Mark Rhodes MD is Attending Physician. tw4 20:27 Flor Garcia RN is Primary Nurse. ll2 20:30 Arm band placed on right wrist. EKG completed in triage. Results shown to MD. ll2 20:35 Patient has correct armband on for positive identification. drainlayer on. Pulse ll2 ox on. NIBP on. 20:54 Triage completed. dm5 21:33 XRAY Chest (1 view) In Process Unspecified. EDMS 22:20 CT Head Brain wo Cont In Process Unspecified. EDMS 23:05 Justin Orosco MD is Hospitalizing Provider. tw4 09/18 00:01 CT Chest Wo Con In Process Unspecified. EDMS 00:24 Hospitalizing Provider role handed off by Justin Orosco MD tw4 00:24 Efra Dye MD is Hospitalizing Provider. tw4 01:44 No provider procedures requiring assistance completed. Patient admitted, IV remains in ll2 place. 05:52 Basic Metabolic Panel Sent. 2 Administered Medications: 09/17 21:00 Drug: Cardizem 10 mg Route: IVP; Site: right hand; 2 22:00 Follow up: Response: No adverse reaction 2 23:00 Drug: Vitamin K1 5 mg Route: IM; Site: left deltoid; 2 09/18 00:00 Follow up: Response: No adverse reaction [facility] Outcome: 09/17 23:07 Decision to Hospitalize by Provider. tw4 09/18 01:44 Admitted to Med/surg accompanied by tech, via stretcher, with oxygen, Report called to pao juárez RN Condition: stable Instructed on the need for admit. 01:45 Patient left the ED. [facility] Signatures: Dispatcher [employer] Pauline Hernandez RN RN dm5 Mark Rhodes MD MD tw4 Flor Garcia RN RN ll2 Sulma Wright RN RN zb
[2020-09-17] MEDS ORDERED: VITAMIN K (ADULT) 10 MG/ML ONE (23:10)
[2020-09-18] MEDS ORDERED: IPRATROPIUM BROM 0.5MG/2.5ML NEB PRN (01:04)
[2020-09-18] MEDS ORDERED: ALBUTEROL 2.5 MG/3 ML NEB SOL NEB PRN (01:04)
[2020-09-18 02:10] VITALS: BMI 25.0
--- NOTE | 2020-09-18 08:20 | RAD REPORT ---
EXAM DESCRIPTION: RAD - Chest Single View - 09/17/2020 9:33 pm CLINICAL HISTORY: CHEST PAIN Chest pain. COMPARISON: Chest Single View dated 09/07/2020; Chest Single View dated 07/19/2020; Chest Single Vie w dated 07/18/2020; Chest Single View dated 05/20/2020 FINDINGS: Portable technique limits examination quality. Moderate bilateral pulmonary opacities are present, progressive since the comparative study. This may represent pulmonary edema or infection/pneumonia. The heart is significantly enlarged in size. Robles otomy wires are present.Single lead defibrillator/ pacer device is noted IMPRESSION: Moderate bilateral pulmonary opacities are noted, progressive since the comparative stud y. The findings may represent pulmonary edema or pneumonia.
--- NOTE | 2020-09-18 11:28 | RAD REPORT ---
EXAM DESCRIPTION: Head Brain Wo Cont CLINICAL HISTORY: 79 years Female HEADACHE COMPARISON: 07/18/2020. TECHNIQUE: Contiguous axial CT images obtained through the brain without IV contrast. This exam was performed according to our department optimization program which includes automated exp osure control, adjustment of the mA and/or kv according to patient size and/or use of iterative recon struction technique. FINDINGS: The ventricles and sulci are prominent consistent with atrophic changes. Microvascular ischemic changes. There are similar areas of encephalomalacia in the superior left frontal lobe and in the right fronto parietal region. 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 No mass lesions. No acute hemorrhage. Atherosclerotic calcifications. Probable sebaceous cysts in the scalp on the right. No fluid or significant mucosal thickening in the visualized paranasal sinuses. No depressed calvarial fractures. IMPRESSION: Atrophy, microvascular ischemic changes and old infarcts similar compared to the prior s tudy. No acute intracranial abnormality is identified. Electronically signed by: Roshan Tom MD 09/17/2020 10:38 PM [employer] Due to temporary technical issues with the PACS/Fluency reporting system, reports are being signed by the in house radiologist without review as a courtesy to ensure prompt reporting. The interpreting r adiologist is fully responsible for the content of the report.
--- NOTE | 2020-09-18 11:29 | RAD REPORT ---
EXAM DESCRIPTION: CT chest without IV contrast CLINICAL HISTORY: 79 years Female HYPOXIA, shortness of breath TECHNIQUE: Axial CT imaging of the chest was performed without intravenous contrast. Sagittal and coronal reconstructed images were then performed. The CT study is performed according to ALARA (as lo w as reasonably achievable) or ALARA/IMAGE GENTLY, with automatic adjustment of mA and/or kV accordin g to patient size. Performed on: 09/17/2020 at 11:45 PM COMPARISON: 07/18/2020. FINDINGS: CT CHEST: Lungs: The lungs are well-expanded. There are small bilateral pleural effusions slightly increased wh en compared to the prior study. There are patchy interstitial and alveolar airspace opacities bilater ally as well as a few small focal areas of consolidation. Findings may be due to edema or possibly pn eumonia. There is no evidence of a pneumothorax. Heart: The heart is stable and is enlarged. There is no pericardial effusion. There are moderate coronary artery calcifications. There are remote postsurgical changes of the mediastinum. There appea rs to be a a prosthetic aortic valve and/or dense aortic valve calcifications. Mediastinum: There are moderate atherosclerotic calcifications along the thoracic aorta. The pulmon bryant artery trunk and main pulmonary arteries are mildly enlarged which can be seen with pulmonary art samson hypertension. Bones: No acute osseous abnormalities are identified. Soft tissues: No focal soft tissue abnormalities are identified. There is an electrical generator pro jecting over the left posterior lateral chest wall with a lead extending along the anterior chest wal l. Lymphadenopathy: No pathologic hilar, mediastinal or axillary lymphadenopathy is identified. Upper abdomen: No acute abnormalities are identified. IMPRESSION: 1. Small bilateral pleural effusions slightly increased in size when compared to the p rior study. 2. Patchy interstitial and alveolar airspace opacities bilaterally as well as a few small focal are as of consolidation possibly due to edema or pneumonia. 3. Stable cardiomegaly. 4. Moderate atherosclerotic calcifications along the thoracic aorta and coronary arteries. 5. Prosthetic aortic valve versus dense aortic valve calcifications. Electronically signed by: Bobbi Fowler DO 09/18/2020 12:23 AM [facility] Due to temporary technical issues with the PACS/Fluency reporting system, reports are being signed by the in house radiologist without review as a courtesy to ensure prompt reporting. The interpreting r adiologist is fully responsible for the content of the report.
[2020-09-18] MEDS: FUROSEMIDE 20 MG/ 2ML VIAL IV SCH ×2 (11:34→17:22)
--- NOTE | 2020-09-19 00:33 | HP ---
Date of Admission: 09/18/2020 History Of Present Illness: An 79-year-old female, who was just been discharged from the hospital be cause of cystitis with mental status confusion, and congestive heart failure, diastolic exacerbation. She was [facility] back to the [facility], however, apparently over there, she complained of ches t pressure. On this admission, she is well alert and oriented. She said she did not have chest pain . She was feeling some shortness of breath, which was coming gradual on her. However, the patient w as brought to the emergency room. Also, her PT/INR because she was on Eliquis for atrial fibrillatio n was in the 6 and also she was found to have exacerbation of her congestive heart failure, so she wa s readmitted. She complained to me on the time of interview that her shortness of breath is better. Review of Systems: Respiratory: Mild cough. Cardiovascular: She denied chest pain, palpitation, or dizziness. Skeletomuscular: No complaints. Genitourinary: No complaints. Neurological: The patient is alert and oriented. She had no complaints for me, except that she has been having generalized fatigue for a long time. Gastrointestinal: No complaints. Past Medical History: Kindly look her recent admit and discharge notes. Social History: Kindly look her recent admit and discharge notes. Family History: Kindly look her recent admit and discharge notes. Medications: Kindly look her recent admit and discharge notes. Allergies: KINDLY LOOK HER RECENT ADMIT AND DISCHARGE NOTES. Physical Examination: Vital Signs: Blood pressure 110/60, pulse at 100, temperature 96.9. Room air pulse oximetry at 99. Heart: Tachycardic. Regular rate. Chest: Mild bilateral crackles. Abdomen: Soft, benign. Bowel sounds are active. Neurological: Alert and oriented x4. Grossly intact. Extremities: No edema. No cyanosis. Peripheral pulses are felt. Laboratory Data: Head CT, no acute pathology. Chest CT, no acute pathology. Picture of CHF more li geri with a chest x-ray. The patient's white cell count 10.4, hemoglobin 14.7, hematocrit 45.2, plat elets 216. Her PT was 72.8 and INR 6.22. On her chemistries, sodium 132, potassium 4.9, chloride 92 , CO2 26, BUN 61, creatinine 2.51. Blood sugar fingersticks in the 200s. AST 118, ALT 22. Troponin 0.15 and 0.14. Assessment And Plan: 1.Coagulopathy from Eliquis. We are going to hold off on that medication and follow the PT/INR. 2.Congestive heart failure exacerbation, diastolic, acute on top of chronic. The patient was put on Lasix 20 mg IV b.i.d. 3.The patient was given potassium subcutaneous in the emergency room. 4.Elevated troponin. Just recent previous admission also was elevated because of her renal function s. Cardiology had no plan for any intervention at this time. We will continue the rest of her home medicines. Expect discharge in 1-2 days. Look orders for details. MFS/MODL Voice ID: [id number]
[2020-09-19 06:00] LABS: Absolute Lymphocytes (CBC) 0.3 K/uL (0.7-4.9); Basophils % 0.3 % (0-1.3); Hematocrit 40.3 % (36.0-45.0); Lymphocytes % 3.4 % (15.3-44.8); MPV 8.9 fL (7.6-11.3); RBC Red Blood Cell Count 4.62 M/uL (3.86-4.86)
[2020-09-19 06:10] LABS: Protime INR 2.79
[2020-09-19] MEDS: FUROSEMIDE 20 MG/ 2ML VIAL IV SCH ×2 (10:37→15:52)
[2020-09-19] MEDS: JUVEN PACKET PO SCH (20:27)
[2020-09-19] MEDS ORDERED: AMIODARONE HCL 200 MG TAB PO SCH (21:00)
[2020-09-19] MEDS ORDERED: INSULIN GLARGINE 100 UNITS/ML SQ SCH (21:00)
[2020-09-20] MEDS ORDERED: FLUOXETINE 20 MG CAP PO SCH (09:00)
[2020-09-20] MEDS ORDERED: FLUOXETINE 10 MG CAP PO SCH (09:00)
[2020-09-20] MEDS: FUROSEMIDE 20 MG/ 2ML VIAL IV SCH (09:58)
[2020-09-20] MEDS: JUVEN PACKET PO SCH (09:59)
[2020-09-20 12:54] VITALS: BP 109/75; TEMP 97.1
[2020-09-20 15:29] VITALS: O2SAT 96
== END 2020-09-20 16:21 | DRG 292 ==
LOC: ER 19:54 → ERHOLD 09-18 00:58 → 2ND 09-18 01:32
PROVIDERS: ADMIT Internal Medicine; ATTEND Internal Medicine
DX: I11.0 Hypertensive heart disease with heart failure (principal); D68.9 Coagulation defect, unspecified; I50.33 Acute on chronic diastolic (congestive) heart failure; E78.5 Hyperlipidemia, unspecified; E11.9 Type 2 diabetes mellitus without complications; K21.9 Gastro-esophageal reflux disease without esophagitis; I48.91 Unspecified atrial fibrillation; I25.2 Old myocardial infarction; R77.8 Other specified abnormalities of plasma proteins; Z88.1 Allergy status to other antibiotic agents; Z88.5 Allergy status to narcotic agent; Z88.0 Allergy status to penicillin; Z79.02 Long term (current) use of antithrombotics/antiplatelets; Z79.899 Other long term (current) drug therapy; Z79.01 Long term (current) use of anticoagulants; Z20.828 Contact with and (suspected) exposure to other viral communicable diseases
CPT/HCPCS: 36415; 70450; 71045; 71250; 80048; 80076; 82947; 83735; 83880; 84484; 85025; 85610; 92610; 93005; 96372; 96374; 99285; J1815; J1940; J3430; U0003